=== PATIENT | male | born 1960 | race Caucasian/White ===

== ENCOUNTER 2020-10-08 14:47 | Outpatient (REF) | payer MEDICARE, OTHER, SELFPAY ==
--- NOTE | ~2020-10-08 | XR_ITS ---
EXAMINATION: XR LUMBOSACRAL SPINE WITH OBLIQUES CLINICAL INFORMATION: Low back pain and right-sided sciatica COMPARISON: None TECHNIQUE: AP, both oblique, and lateral views of the lumbar spine. Lateral view of the lumbosacral junction. FINDINGS: Bone alignment is normal. No fracture or dislocation is seen. Disc spaces are normal. There is evidence of mild degenerative spondylosis at L2-L3 and L3-L4. There is mild lower lumbar spine facet arthritis. No pars defect is seen. XR/XR lumbar spine 4V min IMPRESSION: Degenerative changes.
== END 2020-10-08 14:48 | disposition home or self-care (01) ==
LOC: HO.XRAY 14:47
PROVIDERS: PCP Internal Medicine; Visit Provider Internal Medicine
DX: M54.41 Lumbago with sciatica, right side (principal)
CPT/HCPCS: 72110

== ENCOUNTER → 2020-10-29 08:43 | Outpatient (BNVA) | payer MEDICARE, MEDICAID, SELFPAY | PROVIDERS: PCP Internal Medicine; Visit Provider Surgery | DX: R10.31 Right lower quadrant pain (principal) | CPT/HCPCS: 99212 ==

== ENCOUNTER 2020-11-02 14:19 | Outpatient (REF) | payer MEDICARE, MEDICAID, SELFPAY ==
[2020-11-02 15:46] LABS: Blood Urea Nitrogen 18 mg/dL (9-16); Estimated Glomerular Filt Rate 55
== END 2020-11-02 14:20 | disposition home or self-care (01) ==
LOC: HO.LAB 14:19
PROVIDERS: PCP Internal Medicine; Visit Provider Surgery
DX: R10.31 Right lower quadrant pain (principal)
CPT/HCPCS: 36415; 82565; 84520

== ENCOUNTER 2020-11-08 10:40 | Outpatient (REF) | payer MEDICARE, OTHER, SELFPAY ==
--- NOTE | ~2020-11-08 | CT_ITS ---
EXAMINATION: CT PELVIS WITH CONTRAST CLINICAL INFORMATION: Right lower quadrant pain. COMPARISON: None TECHNIQUE: Helical scanning was performed with submillimeter collimation through the pelvis with the use of oral contrast and during bolus intravenous injection of 85 mL of Omnipaque 350 intravenous contrast. Sagittal and coronal multiplanar 2-D reconstructions were obtained. This CT examination was performed using dose optimization techniques as appropriate, variously including the following: *Automated exposure control *Adjustment of mA and/or kV according to patient size (this includes techniques or standardized protocols for targeted exams where dose is matched to indication/reason for exam; i.e. extremities or head) *Use of iterative reconstruction technique DLP: 611 mGy-cm FINDINGS: PELVIS: There is scattered stool in the cecum and proximal ascending colon. The small bowel loops are normal caliber. Appendix is normal caliber. There is no free fluid or free air seen. The bladder is unremarkable. The prostate gland is mildly enlarged. No abnormal lymph nodes. There is a prominent soft tissue density in the right inguinal region but no fat stranding. It measures 2.1 x 1.4 x 3.4 cm. There is loss of L3-L4, L4-L5 disc heights. The rest of the disc heights are normal. No lytic or sclerotic process seen. Mild loss of bilateral hip joints are noted with periarticular spurring. CT/CT pelvis w con IMPRESSION: Soft tissue density in the right inguinal canal. No evidence of hernia. Otherwise the pelvis is unremarkable.
== END 2020-11-08 10:41 | disposition home or self-care (01) ==
LOC: HO.CT 10:40
PROVIDERS: PCP Internal Medicine; Visit Provider Surgery
DX: R10.31 Right lower quadrant pain (principal)
CPT/HCPCS: 72193; Q9967

== ENCOUNTER 2020-11-23 15:00 | Outpatient (RCR) | payer MEDICARE, OTHER, SELFPAY | END 2020-11-29 10:46 | disposition other institution (70) | LOC: HO.PT 15:00 | PROVIDERS: PCP Internal Medicine; Visit Provider Internal Medicine | DX: M54.42 Lumbago with sciatica, left side (principal) | CPT/HCPCS: 97110; 97112; 97140; 97162 ==

== ENCOUNTER 2020-12-07 09:42 | Outpatient (REF) | payer MEDICARE, OTHER, SELFPAY ==
--- NOTE | ~2020-12-07 | MR_ITS ---
EXAMINATION: MR LUMBAR SPINE WITHOUT CONTRAST CLINICAL INFORMATION: Lower back pain. Lifting injury 1.5 months ago. Right leg pain. COMPARISON: Lumbar spine radiographs dated 10/08/2020. Pelvic CT dated 11/08/2020. TECHNIQUE: MRI of the lumbar spine was obtained using routine sequences without contrast. FINDINGS: VERTEBRAL BODIES AND PARASPINAL STRUCTURES: The lumbar lordosis is maintained. Grade 1 anterolisthesis of L4 on L5 measuring approximately 0.5 cm, similar when compared to the prior radiographs. No acute fracture. No loss of vertebral body height. Loss of intervertebral disc height with disc desiccation at L3-S1. No acute abnormal marrow signal. The visualized paraspinal soft tissues are unremarkable. CONUS MEDULLARIS AND CAUDA EQUINA: Normal, terminating at the level of the L1 inferior endplate. SPINAL LEVELS: T12-L1: No significant disc bulge. No central canal or neural foraminal stenosis. L1-L2: Minimal disc bulge and bilateral facet arthropathy without significant central canal or neural foraminal stenosis. L2-L3: Minimal disc bulge and bilateral facet arthropathy without significant central canal or neural foraminal stenosis. L3-L4: Broad-based disc bulge with a superimposed right paracentral/subarticular disc protrusion which abuts the traversing right L4 nerve root within the lateral recess as well as the exiting right L3 nerve root in the extraforaminal space. Bilateral facet arthropathy and thickening of the ligamentum flavum causes mild central canal as well as moderate right and mild left neural foraminal stenosis. L4-L5: Uncovering of the intervertebral disc with a broad-based disc bulge and left paracentral disc protrusion. Bilateral facet arthropathy and thickening of the ligamentum flavum, asymmetric to the right. Findings cause moderate central canal stenosis which displaces the traversing right L5 nerve root as well as encroaches upon the traversing left L5 nerve root. There is moderate to severe bilateral neural foraminal stenosis. L5-S1: Broad-based disc bulge with a shallow posterior central disc protrusion, bilateral facet arthropathy, and thickening of the ligamentum flavum causing minimal central canal as well as moderate bilateral neural foraminal stenosis. MR/MR lumbar spine wo con IMPRESSION: 1. Grade 1 anterolisthesis of L4 on L5, unchanged when compared to the prior radiographs. Uncovering of the intervertebral disc with a broad-based disc bulge and left paracentral disc protrusion. Bilateral facet arthropathy and thickening of the ligamentum flavum which is asymmetric to the right. This causes moderate central canal stenosis which displaces the traversing right L5 nerve root and encroaches upon the traversing left L5 nerve root. Moderate to severe bilateral neural foraminal stenosis. 2. Degenerative disc disease at L3-L4 with a broad-based disc bulge and superimposed right paracentral/subarticular disc protrusion which abuts the traversing right L4 nerve root as well as the exiting right L3 nerve root. Bilateral facet arthropathy and thickening of the ligamentum flavum causes mild central canal as well as moderate right and mild left neural foraminal stenosis. 3. Degenerative disc disease at L5-S1 with a broad-based disc bulge and shallow posterior central disc protrusion as well as bilateral facet arthropathy and thickening of ligamentum flavum which causes minimal central canal and moderate bilateral neural foraminal stenosis.
== END 2020-12-07 09:43 | disposition home or self-care (01) ==
LOC: HO.MRI 09:42
PROVIDERS: Visit Provider Internal Medicine
DX: M54.42 Lumbago with sciatica, left side (principal); R10.31 Right lower quadrant pain
CPT/HCPCS: 72148; 99212

== ENCOUNTER → 2021-03-01 08:24 | Outpatient (BNVA) | payer MEDICARE, MEDICAID, SELFPAY | PROVIDERS: PCP Internal Medicine; Visit Provider Nurse Practitioner Family | DX: M47.27 Other spondylosis with radiculopathy, lumbosacral region (principal); M47.816 Spondylosis without myelopathy or radiculopathy, lumbar region | CPT/HCPCS: 99202 ==

== ENCOUNTER 2021-06-21 05:42 | Outpatient (REF) | payer MEDICARE, OTHER, SELFPAY ==
--- NOTE | ~2021-06-21 | FL_ITS ---
EXAMINATION: XR FLUOROSCOPY WITH IMAGES CLINICAL INFORMATION: M47.27 - Other spondylosis with radiculopathy, lumbosacral COMPARISON: MR lumbar spine 12/07/2020 TECHNIQUE: Fluoroscopy performed by Dr. Ryan Randle. Fluoroscopy time: 0.4 minutes DAP: 4.44 Gycm2 Images: 2 FINDINGS: There are spinal needles overlying the bilateral outer L4 neural foramen. There is contrast seen in the respective nerve sheaths. Some early transforaminal epidural extension is suggested. No visible vascular communication. FL/FL guidance in treatment room IMPRESSION: Fluoroscopy for pain management procedures.
== END 2021-06-21 05:43 | disposition home or self-care (01) ==
LOC: HO.RADIR 05:42
PROVIDERS: Visit Provider Anesthesiology
DX: M47.27 Other spondylosis with radiculopathy, lumbosacral region (principal); M47.816 Spondylosis without myelopathy or radiculopathy, lumbar region
CPT/HCPCS: 64483; J3300; Q9967

== ENCOUNTER → 2021-07-21 08:31 | Outpatient (BNVA) | payer MEDICARE, MEDICAID, SELFPAY | PROVIDERS: PCP Internal Medicine; Visit Provider Anesthesiology | DX: M47.27 Other spondylosis with radiculopathy, lumbosacral region (principal); M47.816 Spondylosis without myelopathy or radiculopathy, lumbar region | CPT/HCPCS: 99212 ==

== ENCOUNTER 2021-11-18 06:58 | Day surgery (SDC) | payer MEDICARE, OTHER, SELFPAY ==
[2021-11-14 12:30] VITALS: BMI 29.0
[2021-11-16 10:01] VITALS: BMI 28.1
--- NOTE | 2021-11-16 14:31 | P.CONAN_ITS ---
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 [facility] Active Problems Active Problems: All Active Problems (Updated 11/16/21 @ 09:57 by Meagan Mullen RN) Right groin pain (Acute) Spondylosis of lumbosacral spine with radiculopathy (Acute) Lumbar facet arthropathy (Acute) Multilevel degenerative disc disease (Acute) Lumbar stenosis (Acute) Diabetes (Acute) Past Medical History Medical History (Updated 11/16/21 @ 09:57 by Meagan Mullen RN) Deaf Diabetes Elevated cholesterol HTN (hypertension) Hx of renal calculi Personal history of COVID-19 Seasonal allergies Family History Family History Mother History of lung cancer Surgical History Surgical History (Updated 11/16/21 @ 09:57 by Meagan Mullen RN) History of bilateral inguinal hernia repair History of lithotripsy History of right inguinal hernia repair (~12/29/19) Hx of cholecystectomy Social History Social History Are you a primary critical care technician to a significant other at home: No Do you presently have visiting nurse or other home services: No Alcohol intake: current Alcohol intake frequency: holidays/special occasions only Patient Tobacco Use Status: Never used Tobacco Use of substances other than those prescribed or required for medical reasons: No Are you DNR?: No Advance Directives: No Advance Directives Information Provided: Yes Poor oral hygiene: No (upper denture) Meds Allergies Allergy/AdvReac Type Severity Reaction Status Date / Time bee pollen [BEE STINGS] Allergy Severe SWELLING Verified 11/18/21 07:47 Sulfa (Sulfonamide Allergy Intermediate UNKNOWN Verified 11/18/21 07:47 Antibiotics) [SULFA (SULFONAMIDE ANTIBIOTICS)] pollen extracts [POLLEN] Allergy Unknown NASAL Verified 11/18/21 07:47 IRRITATION Home Medications Medication Instructions Recorded Confirmed Last Taken Type blood sugar diagnostic #10 ea 10/29/20 10/29/20 Unknown History cholecalciferol (vitamin D3) 25 25 mcg PO DAILY 10/29/20 11/16/21 Unknown History mcg (1,000 unit) capsule coenzyme Q10 100 mg capsule 100 mg PO DAILY 10/29/20 11/16/21 Unknown History (CoQ-10) glipizide 5 mg tablet 5 mg PO DAILY 10/29/20 11/16/21 Unknown History insulin glargine 100 unit/mL 60 unit SUBCUT BEDTIME 10/29/20 11/18/21 11/17/21 22:00 History subcutaneous solution 30 units insulin lispro 100 unit/mL 10 - 15 unit SUBCUT TID PRN 10/29/20 11/16/21 Unknown History subcutaneous pen insulin syringe-needle U-100 1 mL #10 ea 10/29/20 10/29/20 Unknown History 31 gauge x 01/02 lisinopril 10 mg tablet 10 mg PO DAILY 10/29/20 11/16/21 Unknown History loratadine 10 mg tablet 10 mg PO QAM 10/29/20 11/16/21 Unknown History mecobalamin (vitamin B12) 1,000 1,000 mcg SUBLINGUAL DAILY 10/29/20 11/16/21 Unknown History mcg disintegrating tablet,sublingual pen needle, diabetic 31 gauge x #50 ea 10/29/20 10/29/20 Unknown History 3/16 sitagliptin 100 mg tablet 100 mg PO DAILY 10/29/20 11/16/21 Unknown History gabapentin 300 mg capsule 300 mg PO TID 12/07/20 11/16/21 Unknown History tizanidine 4 mg tablet 4 mg PO Q6-8H PRN tab 12/07/20 11/16/21 Unknown History Exam Exam Date and Time: November 16, 2021 1431 Height,Weight and Vital Signs: Height 5 ft 8 in Weight 83.915 kg Assessment and Plan Assessment Anesthesia Assessment: Chart Reviewed Documented by User: Makayla Huynh MD 11/18/21 09:43 [facility] Past Medical History Medical History (Updated 11/16/21 @ 09:57 by Meagan Mullen RN) Deaf Diabetes Elevated cholesterol HTN (hypertension) Hx of renal calculi Personal history of COVID-19 Seasonal allergies Family History Family History Mother History of lung cancer Family history of problems with anesthesia: No Surgical History Surgical History (Updated 11/16/21 @ 09:57 by Meagan Mullen RN) History of bilateral inguinal hernia repair History of lithotripsy History of right inguinal hernia repair (~12/29/19) Hx of cholecystectomy History of Problems with Anesthesia: No Social History Social History Are you a primary critical care technician to a significant other at home: No Do you presently have visiting nurse or other home services: No Alcohol intake: current Alcohol intake frequency: holidays/special occasions only Patient Tobacco Use Status: Never used Tobacco Use of substances other than those prescribed or required for medical reasons: No Are you DNR?: No Advance Directives: No Advance Directives Information Provided: Yes Poor oral hygiene: No (upper denture) Meds Allergies Allergy/AdvReac Type Severity Reaction Status Date / Time bee pollen [BEE STINGS] Allergy Severe SWELLING Verified 11/18/21 07:47 Sulfa (Sulfonamide Allergy Intermediate UNKNOWN Verified 11/18/21 07:47 Antibiotics) [SULFA (SULFONAMIDE ANTIBIOTICS)] pollen extracts [POLLEN] Allergy Unknown NASAL Verified 11/18/21 07:47 IRRITATION Home Medications Medication Instructions Recorded Confirmed Last Taken Type blood sugar diagnostic #10 ea 10/29/20 10/29/20 Unknown History cholecalciferol (vitamin D3) 25 25 mcg PO DAILY 10/29/20 11/16/21 Unknown History mcg (1,000 unit) capsule coenzyme Q10 100 mg capsule 100 mg PO DAILY 10/29/20 11/16/21 Unknown History (CoQ-10) glipizide 5 mg tablet 5 mg PO DAILY 10/29/20 11/16/21 Unknown History insulin glargine 100 unit/mL 60 unit SUBCUT BEDTIME 10/29/20 11/18/21 11/17/21 22:00 History subcutaneous solution 30 units insulin lispro 100 unit/mL 10 - 15 unit SUBCUT TID PRN 10/29/20 11/16/21 Unknown History subcutaneous pen insulin syringe-needle U-100 1 mL #10 ea 10/29/20 10/29/20 Unknown History 31 gauge x /16 lisinopril 10 mg tablet 10 mg PO DAILY 10/29/20 11/16/21 Unknown History loratadine 10 mg tablet 10 mg PO QAM 10/29/20 11/16/21 Unknown History mecobalamin (vitamin B12) 1,000 1,000 mcg SUBLINGUAL DAILY 10/29/20 11/16/21 Unknown History mcg disintegrating tablet,sublingual pen needle, diabetic 31 gauge x #50 ea 10/29/20 10/29/20 Unknown History 3/16 sitagliptin 100 mg tablet 100 mg PO DAILY 10/29/20 11/16/21 Unknown History gabapentin 300 mg capsule 300 mg PO TID 12/07/20 11/16/21 Unknown History tizanidine 4 mg tablet 4 mg PO Q6-8H PRN tab 12/07/20 11/16/21 Unknown History Exam Airway Mallampati Class: II TM Dist: >3cm Neck ROM: Full Loose/Missing/Broken Teeth: Upper and Lower Assessment and Plan Assessment Anesthesia Assessment: Anesthesia Plan Discussed Final Anesthetic Review Family History of Problems with Anesthesia: No History of Problems with Anesthesia: No NPO: Yes ASA Class: II Final Preanesthetic Review: No Changes in Pt Med Stat, Meds/Allgs Chart Reviewed, Consent Obtained/Reviewed and Anes Risks/Benef Reviewed Patient Risk: Intermediate Procedure Risk: Low Anesthetic Plan Anesthetic Plan: MAC: Disposition: Standard PACU
--- NOTE | ~2021-11-18 | FL_ITS ---
EXAMINATION: XR FLUOROSCOPY WITH IMAGES CLINICAL INFORMATION: Spinal cord stimulation trial COMPARISON: None. TECHNIQUE: Fluoroscopy performed by Dr. Ryan Randle. Fluoroscopy time: 13.1 minutes DAP: 61.2 Gycm2 Images: 3 FINDINGS: Fluoroscopic images demonstrate spinal stimulator wiring overlying the thoracic spine. This extends likely to the level of T8. FL/FL guidance in OR IMPRESSION: Fluoroscopic guidance for spinal stimulator wiring placement. Please refer to procedural report for further information.
--- NOTE | 2021-11-18 07:10 | P.HPSUR_ITS ---
Pre-Procedural Eval Section A Date of Service: 11/18/21 Section B Chief Complaint: spondylosis Details of Present Illness: as above Relevant Family History (Specify if Yes): No Relevant Social History: None Present Medications: see Short Stay Collaborative assessment Medical History: No relevant PMH History of Previous Operations: No relevant previous surgery Allergies: Allergies Allergy/AdvReac Type Severity Reaction Status Date / Time bee pollen [BEE STINGS] Allergy Severe SWELLING Verified 11/16/21 09:57 Sulfa (Sulfonamide Allergy Intermediate UNKNOWN Verified 11/16/21 09:57 Antibiotics) [SULFA (SULFONAMIDE ANTIBIOTICS)] pollen extracts [POLLEN] Allergy Unknown NASAL Verified 07/21/21 08:49 IRRITATION Review of Systems Sugical H&P ROS: Negative: Constitution, Cardiovascular, Respiratory, Neurolo gical, Psychiatric, Hem-Onc, Allergic/Immunologic, Gastrointestinal, Genitourinary, Musculoskeletal, Integumentary, Endocrine and Eyes/Ears/Nose/Throat Exam Surgical H&P Exam: Normal: HEENT, Normal: Heart, Normal: Lungs, Normal: Extremities, Normal: Abdomen, Normal: Skin and Normal: Neurological Plan Diagnosis/Plan: Unchanged I have reviewed the history and physical and performed a pertinent physical examination on my patient. No changes have occurred unless specified.
[2021-11-18 07:51] VITALS: BP 145/83; PULSE 71; RESP 16; TEMP 36.5; O2SAT 97
[2021-11-18 08:05] LABS: Glucose, Whole Blood 222 mg/dL (60-115)
[2021-11-18] MEDS: Lactated Ringers 1,000 ML 100 ML IVCONT (08:08)
[2021-11-18 11:28] VITALS: BP 165/95; PULSE 68; RESP 20; TEMP 36.2; O2SAT 97
--- NOTE | 2021-11-18 11:35 | P.BOP_ITS ---
Brief Operative Note Date of Service: 11/18/21 Pre-op diagnosis: spondylosis lumbar spine, chronic pain syndrome Post-op diagnosis: same Procedure: Trial of Nevro SCS Implants: none permanent Surgeon: Ryan Randle MD Anesthesia: MAC Was an Human Services Case Manager used for this Procedure?: No Estimated blood loss (mL): 2 Pathology: none sent Condition: stable Disposition: PACU
--- NOTE | 2021-11-18 11:38 | W.PM.OPN ---
Operative Note Operative Note Date of Service: 11/18/21 Narrative: Nick is a very pleasant 61 years old male who came today into the operating room for trial of spinal cord stimulator Nevro for the treatment of post laminectomy syndrome. Preoperatively patient received cefasolin 2 g IV mg 30 minutes before the procedure. After obtaining informed consent the patient was brought to the operating room, she was positioned prone on operating table, [employer] monitors were applied and patient was deeply sedated.? ?Time-out was performed delineating correct site, side, the nature of the procedure, patient's allergy, preoperative antibiotic if needed.? All operating room staff was participating in OR time-out procedure. Patient's entire back was prepped with Chloraprep twice and draped with full body fenestrated drape.? Sterilely draped C-arm was brought over operating field and square picture of T11,T12, L1 L2 vertebrae as were demonstrated on the screen.? Attention FIRST? was concentrated on the right L1 L2 epidural interspace.? The location of the projection of the right pedicle center of the L3 vertebra was found on the skin using C-arm.? This location was injected with mixture of lidocaine 2% and Marcaine 0.5% 5 cc.? After that 11 blade was used to make a vineet on the skin.? 10 cm 14 gauge? introducer epidural needle was inserted through the vineet and advanced to? L1-L2 epidural interspace.? The? advancement of the needle was performed on anterior posterior and lateral views.? Guitar wire and loss of resistance technique were used to locate epidural space.? When guitar wire was spread in the epidural fashion, epidural lead was inserted through the skin and the attempt was made to advance the lead. Undortunately the lead was deviating to the left or to the right and bumping adainst midline epidural adhesions on the epidural space at the location of T12 - L1 and T11- T12 vertebrae. ?The needle was removed with the epidural lead and the procedure was attempted on the left without success again with the needle entereing the epidural space at L1- L2 without difficulty but the epidural lead resulting to deviate anteriorly. The needle was removed . After that location of the projection of the right pedicle center of the T12 vertebra was found on the skin using C-arm.? This location was injected with mixture of lidocaine 2% and Marcaine 0.5% 5 cc.? After that 11 blade was used to make a vineet on the skin.? 10 cm 14 gauge curved introducer epidural needle was inserted through the vineet and advanced to T10 T11 epidural interspace.? The advancement of the needle was performed on anterior posterior and lateral views.? Guitar wire and loss of resistance technique were used to locate epidural space.? When guitar wire was spread in the epidural fashion, epidural lead was inserted through the needle and advanced to the bottom of T7 epidural interspace slightly left to the midline location of the projection of the left pedicle center of the T12 vertebra was found on the skin using C-arm.? This location was injected with mixture of lidocaine 2% and Marcaine 0.5% 5 cc.? After that 11 blade was used to make a vineet on the skin.? 10 cm 14 gauge curved introducer epidural needle was inserted through the vineet and advanced to T10 - T11 epidural interspace now on the left side.? The advancement of the needle was performed on anterior posterior and lateral views.? Guitar wire and loss of resistance technique were used to locate epidural space.? When guitar wire was spread in the epidural fashion, epidural lead was inserted through the needle and advanced to the bottom of T7 epidural interspace slightly right to the existing electrode. After the satisfactory position of the needles was established introducer needles and stilets were withdrawn from the electrodes arrays and care was taken not to dislodge the leads. The anchoring devices were advanced to the level of the skin over the bodies of the leads and sutured to the skin using 2 silk sutures 0-0. after that the anchoring screws were tight until three clicks were heard. Bacitracin ointments were applied to the levels of the needles entrance and sterile dressing was applied. Impedance was checked and was satisfactory .? The patient was awake at this moment and epidural leads were connected to testing device.?The testing device was also taped to the patient's back.? The patient tolerated procedure well she was transferred to the [facility] and went to PACU for recovery.
[2021-11-18 11:43] VITALS: BP 145/81; PULSE 69; RESP 18; TEMP 36.1; O2SAT 98
== END 2021-11-18 12:15 | disposition home or self-care (01) ==
PROVIDERS: PCP Internal Medicine; Visit Provider Anesthesiology
PROC: (CPT 63650; principal; 2021-11-18 09:10)
DX: M96.1 Postlaminectomy syndrome, not elsewhere classified (principal); M47.27 Other spondylosis with radiculopathy, lumbosacral region; E11.9 Type 2 diabetes mellitus without complications; Z88.2 Allergy status to sulfonamides
CPT/HCPCS: 63650 ×2; 82947; C1713; C1778; J0690; J2250

== ENCOUNTER → 2021-11-24 08:48 | Outpatient (BNVA) | payer MEDICARE, OTHER, SELFPAY | PROVIDERS: PCP Internal Medicine; Visit Provider Anesthesiology | DX: M54.50 Low back pain, unspecified (principal); E11.9 Type 2 diabetes mellitus without complications; I10 Essential (primary) hypertension; E78.00 Pure hypercholesterolemia, unspecified; H91.3 Deaf nonspeaking, not elsewhere classified; J30.1 Allergic rhinitis due to pollen; Z90.49 Acquired absence of other specified parts of digestive tract; Z88.2 Allergy status to sulfonamides; Z91.030 Bee allergy status | CPT/HCPCS: 99212 ==

== ENCOUNTER 2022-03-17 10:11 | Day surgery (SDC) | payer MEDICARE, OTHER, SELFPAY ==
[2022-03-13 09:55] VITALS: BMI 31.0
--- NOTE | 2022-03-16 10:47 | HO.ANESPROP2 ---
Documented by User: Lissa Regan NP 03/16/22 10:48 HPI - Anesthesia Eval Consult details Narrative: 61yo M for Lumbar Spinal Cord Stimulation Implant s/p trial 11/2021 with MAC Deaf requiring machine greaser [facility] Active Problems Active Problems: All Active Problems (Updated 03/13/22 @ 09:54 by Jami Hernandez RN) Right groin pain (Acute) Spondylosis of lumbosacral spine with radiculopathy (Acute) Lumbar facet arthropathy (Acute) Multilevel degenerative disc disease (Acute) Lumbar stenosis (Acute) Chronic pain syndrome (Acute) Diabetes (Acute) Past Medical History Medical History (Updated 03/13/22 @ 09:54 by Jami Hernandez RN) Chronic pain syndrome Deaf Diabetes Elevated cholesterol HTN (hypertension) Hx of renal calculi Personal history of COVID-19 S/P placement of nerve stimulator Seasonal allergies Family History Family History Mother History of lung cancer Family history of problems with anesthesia: No Surgical History Surgical History (Updated 11/16/21 @ 09:57 by Meagan Mullen RN) History of bilateral inguinal hernia repair History of lithotripsy History of right inguinal hernia repair (~12/29/19) Hx of cholecystectomy History of Problems with Anesthesia: No Social History Social History Are you a primary career development engineer to a significant other at home: No Do you presently have visiting nurse or other home services: No Alcohol intake: current Alcohol intake frequency: holidays/special occasions only Patient Tobacco Use Status: Never used Tobacco Use of substances other than those prescribed or required for medical reasons: No Are you DNR?: No Advance Directives: No Advance Directives Information Provided: Yes Meds Allergies Allergy/AdvReac Type Severity Reaction Status Date / Time bee pollen [BEE STINGS] Allergy Severe SWELLING Verified 11/24/21 09:08 pollen extracts [POLLEN] Allergy Intermediate NASAL Verified 03/13/22 09:51 IRRITATION Sulfa (Sulfonamide Allergy Intermediate UNKNOWN Verified 11/24/21 09:08 Antibiotics) [SULFA (SULFONAMIDE ANTIBIOTICS)] adhesive AdvReac Rash Verified 03/17/22 11:14 Home Medications Medication Instructions Recorded Confirmed Last Taken Type blood sugar diagnostic #10 ea 10/29/20 10/29/20 Unknown History cholecalciferol (vitamin D3) 25 25 mcg PO DAILY 10/29/20 11/16/21 Unknown History mcg (1,000 unit) capsule coenzyme Q10 100 mg capsule 100 mg PO DAILY 10/29/20 11/16/21 Unknown History (CoQ-10) glipizide 5 mg tablet 5 mg PO DAILY 10/29/20 11/16/21 Unknown History insulin glargine 100 unit/mL 60 unit subcut BEDTIME 10/29/20 11/18/21 11/17/21 22:00 History subcutaneous solution 30 units insulin lispro 100 unit/mL 10 - 15 unit subcut TID PRN 10/29/20 11/16/21 Unknown History subcutaneous pen Hyperglycemia insulin syringe-needle U-100 1 mL #10 ea 10/29/20 10/29/20 Unknown History 31 gauge x 5/16 lisinopril 10 mg tablet 10 mg PO DAILY 10/29/20 11/16/21 Unknown History loratadine 10 mg tablet 10 mg PO QAM 10/29/20 11/16/21 Unknown History mecobalamin (vitamin B12) 1,000 1,000 mcg sublingual DAILY 10/29/20 11/16/21 Unknown History mcg disintegrating tablet,sublingual pen needle, diabetic 31 gauge x #50 ea 10/29/20 10/29/20 Unknown History 3/16 sitagliptin 100 mg tablet 100 mg PO DAILY 10/29/20 11/16/21 Unknown History Exam Exam Date and Time: March 16, 2022 1047 Height,Weight and Vital Signs: Height 5 ft 8 in Weight 92.59 kg Assessment and Plan Assessment Anesthesia Assessment: Chart Reviewed Final Anesthetic Review Family History of Problems with Anesthesia: No History of Problems with Anesthesia: No Documented by User: Harish Everett MD 03/17/22 12:11 PMFSH Past Medical History Medical History (Updated 03/13/22 @ 09:54 by Jami Hernandez RN) Chronic pain syndrome Deaf Diabetes Elevated cholesterol HTN (hypertension) Hx of renal calculi Personal history of COVID-19 S/P placement of nerve stimulator Seasonal allergies Family History Family History Mother History of lung cancer Surgical History Surgical History (Updated 11/16/21 @ 09:57 by Meagan Mullen RN) History of bilateral inguinal hernia repair History of lithotripsy History of right inguinal hernia repair (~12/29/19) Hx of cholecystectomy Social History Social History Are you a primary career development engineer to a significant other at home: No Do you presently have visiting nurse or other home services: No Alcohol intake: current Alcohol intake frequency: holidays/special occasions only Patient Tobacco Use Status: Never used Tobacco Use of substances other than those prescribed or required for medical reasons: No Are you DNR?: No Advance Directives: No Advance Directives Information Provided: Yes Meds Allergies Allergy/AdvReac Type Severity Reaction Status Date / Time bee pollen [BEE STINGS] Allergy Severe SWELLING Verified 11/24/21 09:08 pollen extracts [POLLEN] Allergy Intermediate NASAL Verified 03/13/22 09:51 IRRITATION Sulfa (Sulfonamide Allergy Intermediate UNKNOWN Verified 11/24/21 09:08 Antibiotics) [SULFA (SULFONAMIDE ANTIBIOTICS)] adhesive AdvReac Rash Verified 03/17/22 11:14 Home Medications Medication Instructions Recorded Confirmed Last Taken Type blood sugar diagnostic #10 ea 10/29/20 10/29/20 Unknown History cholecalciferol (vitamin D3) 25 25 mcg PO DAILY 10/29/20 11/16/21 Unknown History mcg (1,000 unit) capsule coenzyme Q10 100 mg capsule 100 mg PO DAILY 10/29/20 11/16/21 Unknown History (CoQ-10) glipizide 5 mg tablet 5 mg PO DAILY 10/29/20 11/16/21 Unknown History insulin glargine 100 unit/mL 60 unit subcut BEDTIME 10/29/20 11/18/21 11/17/21 22:00 History subcutaneous solution 30 units insulin lispro 100 unit/mL 10 - 15 unit subcut TID PRN 10/29/20 11/16/21 Unknown History subcutaneous pen Hyperglycemia insulin syringe-needle U-100 1 mL #10 ea 10/29/20 10/29/20 Unknown History 31 gauge x /16 lisinopril 10 mg tablet 10 mg PO DAILY 10/29/20 11/16/21 Unknown History loratadine 10 mg tablet 10 mg PO QAM 10/29/20 11/16/21 Unknown History mecobalamin (vitamin B12) 1,000 1,000 mcg sublingual DAILY 10/29/20 11/16/21 Unknown History mcg disintegrating tablet,sublingual pen needle, diabetic 31 gauge x #50 ea 10/29/20 10/29/20 Unknown History 316 sitagliptin 100 mg tablet 100 mg PO DAILY 10/29/20 11/16/21 Unknown History Exam Airway Mallampati Class: II TM Dist: >3cm Neck ROM: Full Loose/Missing/Broken Teeth: Yes (all upper teeth missing, poor lower dentiton multiple missing including front lower tooth and lateral teeth on both sides) Heart: [id number] Lungs: cta b/l Assessment and Plan Assessment Anesthesia Assessment: Anesthesia Plan Discussed Final Anesthetic Review NPO: Yes ASA Class: III Final Preanesthetic Review: No Changes in Pt Med Stat, Meds/Allgs Chart Reviewed, Consent Obtained/Reviewed and Anes Risks/Benef Reviewed Patient Risk: Intermediate Procedure Risk: Intermediate Assessment/Block/Sedation in SS: Assess/Block/Sedation-SS Anesthetic Plan Anesthetic Plan: GA and Agree w/ Assess. and Plan Disposition: Standard PACU
[2022-03-17] VITALS (8 sets, daily range): BP systolic 127–162; BP diastolic 73–87; PULSE 64–71; RESP 16–18; TEMP 36.2–36.3; O2SAT 95–100
--- NOTE | ~2022-03-17 | FL_ITS ---
EXAMINATION: XR FLUOROSCOPY WITH IMAGES CLINICAL INFORMATION: Spinal stimulator implant. COMPARISON: MR lumbar spine 12/07/2020 TECHNIQUE: Fluoroscopy performed by Dr. Ryan Randle. Fluoroscopy time: 2.3 minutes. Cumulative Dose: 54.0 mGy. DAP: 14.7 Gy-cm2. Images: 5. FINDINGS: There are 2 spinal stimulator electrodes seen ascending the posterior spinal canal. The electrode tips are at level of mid thoracic spine, approximately upper T8 on left and T8-T9 on right. There is no visible kinking or defect of the leads. FL/FL guidance in OR IMPRESSION: Fluoroscopy for pain management procedure.
[2022-03-17 11:34] LABS: Glucose, Whole Blood 271 mg/dL (60-115)
[2022-03-17] MEDS: Lactated Ringers 1,000 ML 100 ML IVCONT (11:40)
--- NOTE | 2022-03-17 11:57 | PC.NURSE ---
patient concerned with elevated blood sugar, Dr Randle at bedside and states that risk of infection is increased with an elevated blood sugar/A1C. Patient verbalized understanding. Dr Randle asked patient if he wanted to cancel procedure and follow up with enterprise application architect to get sugar under control. Patient states he wants to proceed with procedure.
--- NOTE | 2022-03-17 12:00 | MHC.SHP ---
Pre-Procedural Eval Section A Date of Service: 03/17/22 The patient is an INPATIENT: No Changes since office visit: Yes Patient answered all questions The History & Physical has been completed within 30 days and I have reviewed it.: No Section B Chief Complaint: Other spondylosis with radiculopathy, lumbosacral Details of Present Illness: as above Relevant Family History (Specify if Yes): No Relevant Social History: None Present Medications: see Short Stay Collaborative assessment Medical History: No relevant PMH History of Previous Operations: No relevant previous surgery Allergies: Allergies Allergy/AdvReac Type Severity Reaction Status Date / Time bee pollen [BEE STINGS] Allergy Severe SWELLING Verified 11/24/21 09:08 pollen extracts [POLLEN] Allergy Intermediate NASAL Verified 03/13/22 09:51 IRRITATION Sulfa (Sulfonamide Allergy Intermediate UNKNOWN Verified 11/24/21 09:08 Antibiotics) [SULFA (SULFONAMIDE ANTIBIOTICS)] adhesive AdvReac Rash Verified 03/17/22 11:14 Review of Systems Sugical H&P ROS: Negative: Constitution, Cardiovascular, Respiratory, Neurological, Psychiatric, Hem-Onc, Allergic/Immunologic, Gastrointestinal, Genitourinary, Musculoskeletal, Integumentary, Endocrine and Eyes/Ears/Nose/Throat Exam Surgical H&P Exam: Normal: HEENT, Normal: Heart, Normal: Lungs, Normal: Extremities, Normal: Abdomen, Normal: Skin and Normal: Neurological Plan Diagnosis/Plan: Unchanged I have reviewed the history and physical and performed a pertinent physical examination on my patient. No changes have occurred unless specified.
--- NOTE | 2022-03-17 12:31 | W.PM.OPN ---
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 Preoperatively patient received? 2 g cephasolin approximately 20 minutes before procedure. After obtaining informed consent patient was brought to the operating room, HE was positioned prone on operating table, [place] [employer] monitors were applied and patient was deeply sedated.? ?Time-out was performed delineating correct site, side, the nature of the procedure, patient's allergy, preoperative antibiotic if needed.? All operating room staff was participating in OR time-out procedure. Patient's entire back was prepped with ChloraPrep twice and draped with full body fenestrated drape and ioban film.? Sterilely draped C-arm was brought over operating field and sqare picture of? T12-L1 and L2 vertebrae as were demonstrated on the screen.?The skin was infiltrated with the mixture of lidocain 2% and bupivacain 0.5% in the projection of T12 and L1 spinouse procesess.? Number 10 Blade scalpel was used to perform strict midline 6.5 cm? long incision. Thorough hemostasis was obtained,? After that attention? was concentrated on the L1-L2 epidural interspace.? The location of the projection of the right lower portion of the pedicle vertebra was found on the skin using C-arm.? This location was injected with mixture of lidocaine 2% and Marcaine 0.5% 5 cc.? ? 10 cm 14 gauge? introducer epidural needle was inserted through the prevertebral fascia and advanced to? T11-T12 epidural interspace.? The advancement of the needle was performed on anterior posterior and lateral views.? Guitar wire and loss of resistance technique were used to locate epidural space.? When guitar wire was spread in the epidural fashion, epidural lead was inserted through the skin and it was advanced to the posterior epidural space.The lead was advanced? strictly on midline? approximately to the? mid of T8 vertebra in the posterior epidural space. ? After that location of the projection of the LEFT lowest portion of the pedicle of the T12 vertebra was found using C-arm.? This location was injected with mixture of lidocaine 2% and Marcaine 0.5% 5 cc.?10 cm 14 gauge? introducer epidural needle was inserted through the fascia and advanced to T T11-T12 epidural interspace.? The advancement of the needle was performed on anterior posterior and lateral views.? Guitar wire and loss of resistance technique were used to locate epidural space.? When guitar wire was spread in the epidural fashion, epidural lead was inserted through the needle and it was advanced to were the T9 posterior epidural space. the position of the electrodes was verified and on the lateral view they were posterior epidural space. After that attention was concentrated on the left loin? of the patient? were the decision was made to implant the battery.? 2 cm below the 12 right rib horizontal incision was made 6.5 cm long using 10 blade scalpel, hemostasis was performed using? electric cautery..? Using sharp and dull dissection pocket for the battery was formed in caudad direction from the incision.? After that the? wound pocket was? irrigated with vancomycin containing normal saline and tunneling device was used to connect midline incision and flank incision.? The epidural leads were dislodged from midline incision to the flank incision through the tunneling device.? After that they were connected to the omnia battery? and impedance was checked? and found to be satisfactory with all leads connected.? Anchoring? screws were fix on the back of the battery.? Tycron of 1- 0 sutures were applied to the superior lateral and superior medial corners of the upper portion of the pocket? wound and after that the anchoring sutures were connected to the orifices on the battery.? Electrodes were gathered behind the body of the battery and battery was dislodged into under subcutaneous pocket.? The sutures were tied and? irrigation was repeated.? After that?0-0 Polysorb sutures were used to close the? both wounds and the 0-2 polisorb sutures were used to apptoximate the level of the skin , Beatrice were applied to the skin and bacitracin ointment was applied to the staple lines. The sterile dressing comprised of several 4x4 for each wound was affixed to the skin using Tegaderm? film. The patient was transfered supine on the stretcher,? awaken, extubated and transferred stable to the PACU.
--- NOTE | 2022-03-17 14:36 | P.BOP_ITS ---
Brief Operative Note Date of Service: 03/17/22 Pre-op diagnosis: chronic pain syndrome Procedure: chronic pain syndrome Implants: Nevro SCS Omnia battery and 3 epidural 8 contact stimulating leads Surgeon: Ryan Randle MD Anesthesia: GETA Was an [employer] Attendant used for this Procedure?: No Estimated blood loss (mL): 15 Pathology: none sent Condition: stable Disposition: PACU
[2022-03-17] MEDS: oxyCODONE HCl Immed Release 5 MG TABLET 10 MG PO (15:10)
== END 2022-03-17 16:03 ==
LOC: HO.SSS 10:11
PROVIDERS: PCP Internal Medicine; Visit Provider Anesthesiology
PROC: (CPT 63685; principal; 2022-03-17 12:10)
DX: M47.27 Other spondylosis with radiculopathy, lumbosacral region (principal); M47.816 Spondylosis without myelopathy or radiculopathy, lumbar region; G89.4 Chronic pain syndrome; H91.3 Deaf nonspeaking, not elsewhere classified; I10 Essential (primary) hypertension; J30.2 Other seasonal allergic rhinitis; E78.00 Pure hypercholesterolemia, unspecified; Z79.4 Long term (current) use of insulin; E11.42 Type 2 diabetes mellitus with diabetic polyneuropathy; Z79.899 Other long term (current) drug therapy; Z86.16 Personal history of COVID-19
CPT/HCPCS: 63685; 63650 ×2; 82947; C1713; C1778; C1787; C1816; J0330; J0690; J1100; J2250; J2405; J2795; J3010; J3370

== ENCOUNTER → 2022-03-23 10:24 | Outpatient (BNVA) | payer MEDICARE, OTHER, SELFPAY | PROVIDERS: PCP Internal Medicine; Visit Provider Anesthesiology | DX: M47.27 Other spondylosis with radiculopathy, lumbosacral region (principal); M47.816 Spondylosis without myelopathy or radiculopathy, lumbar region; G89.4 Chronic pain syndrome | CPT/HCPCS: 99212 ==

== ENCOUNTER → 2022-03-30 09:04 | Outpatient (BNVA) | payer MEDICARE, OTHER, SELFPAY | PROVIDERS: PCP Internal Medicine; Visit Provider Nurse Practitioner Family | DX: M47.27 Other spondylosis with radiculopathy, lumbosacral region (principal); M47.816 Spondylosis without myelopathy or radiculopathy, lumbar region; G89.4 Chronic pain syndrome | CPT/HCPCS: 99212 ==

== ENCOUNTER → 2022-04-10 10:50 | Outpatient (BNVA) | payer MEDICARE, OTHER, SELFPAY | PROVIDERS: PCP Internal Medicine; Visit Provider Nurse Practitioner Family | DX: M47.27 Other spondylosis with radiculopathy, lumbosacral region (principal); M47.816 Spondylosis without myelopathy or radiculopathy, lumbar region; G89.4 Chronic pain syndrome; Z09 Encounter for follow-up examination after completed treatment for conditions other than malignant neoplasm | CPT/HCPCS: 99212 ==

== ENCOUNTER 2022-05-11 09:39 | Outpatient (REF) | payer MEDICARE, OTHER, SELFPAY ==
--- NOTE | ~2022-05-11 | XR_ITS ---
EXAMINATION: XR THORACIC SPINE CLINICAL INFORMATION: Functional implant. COMPARISON: None TECHNIQUE: 3 views of the thoracic spine were obtained. FINDINGS: Electronic device with dorsal epidural catheter leads terminating at the level of the T8 superior endplate. No lead disruption. Normal vertebral body alignment. The thoracic kyphosis is maintained. No loss of vertebral body height. Minimal multilevel loss of intervertebral disc height with tiny anterior endplate osteophytes. The visualized lungs are clear. Right upper quadrant surgical clips. XR/XR thoracic spine 3V IMPRESSION: Dorsal epidural leads terminating at the level of the T8 superior endplate. No lead disruption. Minimal multilevel degenerative disc disease.
== END 2022-05-11 09:40 | disposition home or self-care (01) ==
LOC: HO.XRAY 09:39
PROVIDERS: PCP Internal Medicine; Visit Provider Anesthesiology
DX: M47.27 Other spondylosis with radiculopathy, lumbosacral region (principal); M47.816 Spondylosis without myelopathy or radiculopathy, lumbar region; G89.4 Chronic pain syndrome; Z96.89 Presence of other specified functional implants
CPT/HCPCS: 72072; Q3014

== ENCOUNTER → 2022-05-22 09:08 | Outpatient (BNVA) | payer MEDICARE, SELFPAY | PROVIDERS: PCP Internal Medicine; Visit Provider Anesthesiology | DX: M47.27 Other spondylosis with radiculopathy, lumbosacral region (principal); M47.816 Spondylosis without myelopathy or radiculopathy, lumbar region; G89.4 Chronic pain syndrome | CPT/HCPCS: Q3014 ==

== ENCOUNTER → 2022-05-31 12:45 | Outpatient (BNVA) | payer MEDICARE, SELFPAY | PROVIDERS: PCP Internal Medicine; Visit Provider Anesthesiology | DX: M47.27 Other spondylosis with radiculopathy, lumbosacral region (principal); M47.816 Spondylosis without myelopathy or radiculopathy, lumbar region; G89.4 Chronic pain syndrome | CPT/HCPCS: 99212 ==

== ENCOUNTER → 2022-06-14 15:58 | Outpatient (BNVA) | payer MEDICARE, SELFPAY | PROVIDERS: PCP Internal Medicine; Visit Provider Anesthesiology | DX: G89.4 Chronic pain syndrome (principal); M47.27 Other spondylosis with radiculopathy, lumbosacral region; M48.062 Spinal stenosis, lumbar region with neurogenic claudication; G95.19 Other vascular myelopathies | CPT/HCPCS: Q3014 ==

== ENCOUNTER → 2022-12-14 14:37 | Outpatient (REF) | payer MEDICARE, MEDICAID, SELFPAY ==
--- NOTE | 2022-12-14 14:51 | CA_ITS ---
Transthoracic Echocardiogram Patient (Last, First, Middle): Nick Escobar, Gender: Male Date of : 1960 Age: 62 Procedure Date: 12/14/2022 Procedure Type: Transthoracic Echocardiogram Location: OP Height: 170.18 cm Weight: 95.26 kg BSA: 2.06 m2 Heart Rate: 72 bpm BP: 120 / 65 mmHg Service Order Expediter: RD Referring MD: Stan Fletcher MD [place] Roofer: Erlin Regalado MD Symptoms: INCREASED R/S RATIO IN V1 ON EKG,POSTERIOR INFART R00.2 PALPITATIONS Study Quality: Fair ECG Rhythm: Sinus Conclusions: - Essentially normal study Findings Left Ventricle Normal left ventricular size, thickness, and systolic function. The visually estimated ejection fraction is between 65-70%. Spectral Doppler is indicative of a normal filling pattern. Peak GLS is -19.6%, within normal limits. Right Ventricle Normal right ventricular cavity size and systolic function. Atria The left atrium is normal in size. There is no evidence of interatrial shunt. The right atrium was not well visualized. Aortic Valve The aortic valve structure and function is likely normal. There is no aortic valve stenosis. There is no aortic valve regurgitation. Mitral Valve Likely normal mitral valve structure and function. There is no mitral valve regurgitation. There is no mitral valve stenosis. Pulmonic Valve The pulmonic valve was not well visualized. Tricuspid Valve Likely normal tricuspid valve structure and function. There is trace tricuspid valve regurgitation. The right ventricular systolic pressure is normal. The right ventricular systolic pressure is 17 mmHg. Normal right atrial pressure. There is no evidence of pulmonary hypertension. Great Vessels All visible segments of the aorta are normal in size. The pulmonary artery was not well visualized. Venous The inferior vena cava is normal in size and collapses greater than 50% with inspiration. Pericardium/Pleural There is no evidence of pericardial effusion. Prior Study Comparison No prior study available for comparison. Measurements 2D Linear Measurements IVSd: 0.85 0.6-0.9/0.6-1.0 cm LVIDd: 3.43 3.9-5.3/4.2-5.9 cm LVIDd Index: 1.67 2.4-3.2/2.2-3.1 cm/m2 LVIDs: 2.20 2.0-3.6 cm LVPWd: 1.05 0.7-1.1 cm LA Diam: 3.60 2.7-3.8/3.0-4.0 cm LAIDs Index: 1.75 1.5-2.3 cm/m2 LV Mass: 115.69 67-162/88-224 g LV Mass Index: 56.16 43-95/49-115 g/m2 LVOT Diam: 2.10 3.0+(-)1.3 cm 2D Systolic Function EF 4C: 71.40 >55% EF 2C: 66.90 >55% EF BiP: 69.30 >55% Mitral Valve MV Pk E: 0.86 MV PK A: 0.92 MV Decel Time: 211.00 E/A: 0.90 E'Lateral: 9.79 E'Medial: 8.27 E/E' Med: 10.40 E/E' Lat: 8.80 PHT: 62.00 MVA PHT: 3.55 Decel Mccracken: 4.06 Aortic Valve AoV Pk Manjeet: 1.37 AoV Mn Manjeet: 1.01 AoV VTI: 0.29 AoV Pk Grad: 8.00 Aov Mn Grad: 4.00 IRMA Cont.VTI: 2.66 LVOT LVOT Pk Manjeet: 1.06 LVOT Mn Manjeet: 0.76 LVOT VTI: 0.22 LVOT Pk Grad: 4.00 LVOT Mn Grad: 3.00 LVOT Diam: 2.10 LVOT Area: 3.46 Diastolic Function MV Pk E: 0.86 MV Pk A: 0.92 E/A: 0.90 E'Medial: 8.27 E/E' Med: 10.40 E' Laterial: 9.79 E/E' Lat: 8.80 Right Ventricle TAPSE (mm): 21.90 TVS' Manjeet: 12.30 Tricuspid Valve TR Pk Manjeet: 1.86 TR Pk Grad: 14.00 RA Press: 3.00 RVSP: 17.00 Great Vessels Aorta Sinus of Valsalva: 3.70 2.0-3.5 cm Ao Asc: 3.20 2.1-3.4 cm Pulmonary Valve PV Pk Manjeet: 0.87 Peak PV Grad: 3.00 Updated in Other Vendor System with Status of Final Erlin Regalado MD electronically signed on 12/15/2022 9:06:14 AM with status of Final
== END ==
LOC: HO.CARD 14:37
PROVIDERS: Visit Provider Internal Medicine
DX: R00.2 Palpitations (principal)
CPT/HCPCS: 93306; 93356

== ENCOUNTER 2022-12-25 11:43 | Inpatient (IN) | payer MEDICARE, OTHER, MEDICAID, SELFPAY ==
--- NOTE | 2022-12-06 | ECG_ITS ---
Test Reason : preop Blood Pressure : / mmHG Vent. Rate : 059 BPM Atrial Rate : 059 BPM P-R Int : 178 ms QRS Dur : 088 ms QT Int : 386 ms P-R-T Axes : 012 -32 026 degrees QTc Int : 382 ms Sinus bradycardia Left axis deviation Increased R/S ratio in V1, consider early transition or posterior infarct Abnormal ECG No previous ECGs available Referred By: Lissa Regan Electronically Signed By:GABRIEL HILTON
[2022-12-06 11:51] VITALS: BP 140/79; PULSE 60; RESP 16; O2SAT 97; BMI 33.2
--- NOTE | 2022-12-06 12:11 | HO.ANESPROP2 ---
Documented by User: Lissa Regan NP 12/22/22 08:51 HPI - Anesthesia Eval Consult details Narrative: 61yo M for Oblique Lateral Interbody Fusion L4-5, 12/25/22 s/p Lumbar Spinal Cord Stimulation Implant 02/2022 with GA-ETT 7.5 Deaf requiring manager care management Per PCP, needs echo preop. Done and WNL. Cleared to proceed PMFSH Active Problems Active Problems: All Active Problems (Updated 06/14/22 @ 16:22 by Ryan Randle MD) Neurogenic claudication due to lumbar spinal stenosis (Acute) Neurogenic claudication (Acute) Spinal cord stimulator status (Acute) Right groin pain (Acute) Spondylosis of lumbosacral spine with radiculopathy (Acute) Lumbar facet arthropathy (Acute) Multilevel degenerative disc disease (Acute) Lumbar stenosis (Acute) Chronic pain syndrome (Acute) Diabetes (Acute) Past Medical History Medical History Chronic pain syndrome Deaf Diabetes Elevated cholesterol HTN (hypertension) Hx of renal calculi Personal history of COVID-19 S/P placement of nerve stimulator Seasonal allergies Family History Family History Mother History of lung cancer Family history of problems with anesthesia: No Surgical History Surgical History History of bilateral inguinal hernia repair History of lithotripsy History of right inguinal hernia repair (~12/29/19) Hx of cholecystectomy History of Problems with Anesthesia: No Social History Social History Are you a primary primary care provider to a significant other at home: No Do you presently have visiting nurse or other home services: No Alcohol intake: current Alcohol intake frequency: holidays/special occasions only Patient Tobacco Use Status: Never used Tobacco Narrative Narrative: No recent illness No CP/SOB with >4mets Meds Allergies Allergy/AdvReac Type Severity Reaction Status Date / Time bee pollen [BEE STINGS] Allergy Severe SWELLING Verified 12/25/22 09:26 and facial swelling Sulfa (Sulfonamide Allergy Severe swelling, Verified 12/25/22 09:26 Antibiotics) hives [SULFA (SULFONAMIDE ANTIBIOTICS)] adhesive AdvReac Intermediate Rash Verified 12/25/22 09:26 Home Medications Medication Instructions Recorded Confirmed Last Taken Type blood sugar diagnostic #10 ea 10/29/20 05/31/22 Unknown History cholecalciferol (vitamin D3) 25 25 mcg PO DAILY 10/29/20 12/05/22 Unknown History mcg (1,000 unit) capsule coenzyme Q10 100 mg capsule 100 mg PO DAILY 10/29/20 12/05/22 Unknown History (CoQ-10) glipizide 5 mg tablet 5 mg PO DAILY 10/29/20 12/05/22 Unknown History insulin glargine 100 unit/mL 55 unit subcut BEDTIME 10/29/20 05/31/22 11/17/21 22:00 History subcutaneous solution 30 units insulin lispro 100 unit/mL 10 - 15 unit subcut TID PRN 10/29/20 12/05/22 Unknown History subcutaneous pen Hyperglycemia insulin syringe-needle U-100 1 mL #10 ea 10/29/20 05/31/22 Unknown History 31 gauge x 01/02 loratadine 10 mg tablet 10 mg PO QAM 10/29/20 12/05/22 Unknown History mecobalamin (vitamin B12) 1,000 1,000 mcg sublingual DAILY 10/29/20 12/05/22 Unknown History mcg disintegrating tablet,sublingual pen needle, diabetic 31 gauge x #50 ea 10/29/20 05/31/22 Unknown History 3 sitagliptin phosphate 100 mg tablet 100 mg PO DAILY 10/29/20 12/05/22 Unknown History pitavastatin calcium 2 mg tablet 2 mg PO DAILY 03/30/22 12/05/22 Unknown History (Livalo) acetaminophen 500 mg tablet 500 mg PO Q6H PRN Pain 12/05/22 12/05/22 Unknown History aspirin 81 mg tablet,delayed 81 mg PO DAILY 12/05/22 12/05/22 12/04/22 08:00 History release gabapentin 300 mg capsule 300 mg TID 12/05/22 12/05/22 Unknown History ibuprofen 12/05/22 11/28/22 History tizanidine 4 mg tablet 4 mg PO Q6-8H PRN Pain 12/05/22 12/05/22 Unknown History lisinopril 20 mg tablet 20 mg QAM 12/25/22 12/25/22 12/25/22 05:00 History Exam Exam Date and Time: December 06, 2022 1211 Height,Weight and Vital Signs: Height 5 ft 7 in Weight 96.3 kg Last Vital Signs Pulse 60 12/06/22 11:51 Resp 16 12/06/22 11:51 BP 140/79 H 12/06/22 11:51 Pulse Ox 97 12/06/22 11:51 O2 Del Method Room Air 12/06/22 11:51 Pertinent Lab Results Pertinent Lab Results: A1C = 6.3 11/2022 from outside lab Lab Results 12/06/22 12/06/22 Range/Units 12:51 12:51 WBC 5.6 (4.8-10.8) X10*3/uL RBC 4.55 L (4.60-5.80) X10*6/uL Hgb 14.4 (14.0-18.0) g/dl Hct 42.9 (42.0-52.0) % MCV 94.3 (80.0-98.0) fL MCH 31.6 (27.0-33.0) pg MCHC 33.6 (31.0-36.0) g/dl RDW 12.3 (11.0-16.0) % Plt Count 182 (160-400) X10*3/uL MPV 9.4 (9.4-12.4) fL Absolute Nucleated RBC 0.000 (0.0-0.012) X10*3/uL Nucleated RBC % (auto) 0.0 (0.0-0.2) /100WBC Sodium 139 (135-145) mmol/L Potassium 4.4 (3.3-5.1) mmol/L Chloride 106 (96-108) mmol/L Carbon Dioxide 29 (22-29) mmol/L Anion Gap 8 L (12-20) BUN 28 H (9-16) mg/dL Creatinine 1.54 H (0.5-1.4) mg/dL Estim Creat Clear Calc 56.4 Estimated GFR 46 Random Glucose 131 H (60-115) mg/dL Calcium 9.4 (8.4-10.2) mg/dL Narrative Narrative: EKG 11/2022 Vent. Rate : 059 BPM ? ? Atrial Rate : 059 BPM ?? P-R Int : 178 ms? QRS Dur : 088 ms ? ? QT Int : 386 ms ? ? ? P-R-T Axes : 012 -32 026 degrees ?? QTc Int : 382 ms ? Sinus bradycardia Left axis deviation Increased R/S ratio in V1, consider early transition or posterior infarct Abnormal ECG No previous ECGs available ECHO 11/2022 Conclusions: - Essentially normal study Airway Mallampati Class: III TM Dist: >3cm Neck ROM: Full Denture: Upper Partial: Lower Heart: RRR Lungs: CTAB Assessment and Plan Assessment Anesthesia Assessment: Anesthesia Plan Discussed and PAT Visit Final Anesthetic Review Family History of Problems with Anesthesia: No History of Problems with Anesthesia: No Documented by User: Domo Medina MD 12/25/22 10:17 [facility] Past Medical History Medical History Chronic pain syndrome Deaf Diabetes Elevated cholesterol HTN (hypertension) Hx of renal calculi Personal history of COVID-19 S/P placement of nerve stimulator Seasonal allergies Family History Family History Mother History of lung cancer Surgical History Surgical History History of bilateral inguinal hernia repair History of lithotripsy History of right inguinal hernia repair (~12/29/19) Hx of cholecystectomy Social History Social History Are you a primary primary care provider to a significant other at home: No Do you presently have visiting nurse or other home services: No Alcohol intake: current Alcohol intake frequency: holidays/special occasions only Patient Tobacco Use Status: Never used Tobacco Meds Allergies Allergy/AdvReac Type Severity Reaction Status Date / Time bee pollen [BEE STINGS] Allergy Severe SWELLING Verified 12/25/22 09:26 and facial swelling Sulfa (Sulfonamide Allergy Severe swelling, Verified 12/25/22 09:26 Antibiotics) hives [SULFA (SULFONAMIDE ANTIBIOTICS)] adhesive AdvReac Intermediate Rash Verified 12/25/22 09:26 Home Medications Medication Instructions Recorded Confirmed Last Taken Type blood sugar diagnostic #10 ea 10/29/20 05/31/22 Unknown History cholecalciferol (vitamin D3) 25 25 mcg PO DAILY 10/29/20 12/05/22 Unknown History mcg (1,000 unit) capsule coenzyme Q10 100 mg capsule 100 mg PO DAILY 10/29/20 12/05/22 Unknown History (CoQ-10) glipizide 5 mg tablet 5 mg PO DAILY 10/29/20 12/05/22 Unknown History insulin glargine 100 unit/mL 55 unit subcut BEDTIME 10/29/20 05/31/22 11/17/21 22:00 History subcutaneous solution 30 units insulin lispro 100 unit/mL 10 - 15 unit subcut TID PRN 10/29/20 12/05/22 Unknown History subcutaneous pen Hyperglycemia insulin syringe-needle U-100 1 mL #10 ea 10/29/20 05/31/22 Unknown History 31 gauge x 5/16 loratadine 10 mg tablet 10 mg PO QAM 10/29/20 12/05/22 Unknown History mecobalamin (vitamin B12) 1,000 1,000 mcg sublingual DAILY 10/29/20 12/05/22 Unknown History mcg disintegrating tablet,sublingual pen needle, diabetic 31 gauge x #50 ea 10/29/20 05/31/22 Unknown History 3/16 sitagliptin phosphate 100 mg tablet 100 mg PO DAILY 10/29/20 12/05/22 Unknown History pitavastatin calcium 2 mg tablet 2 mg PO DAILY 03/30/22 12/05/22 Unknown History (Livalo) acetaminophen 500 mg tablet 500 mg PO Q6H PRN Pain 12/05/22 12/05/22 Unknown History aspirin 81 mg tablet,delayed 81 mg PO DAILY 12/05/22 12/05/22 12/04/22 08:00 History release gabapentin 300 mg capsule 300 mg TID 12/05/22 12/05/22 Unknown History ibuprofen 12/05/22 11/28/22 History tizanidine 4 mg tablet 4 mg PO Q6-8H PRN Pain 12/05/22 12/05/22 Unknown History lisinopril 20 mg tablet 20 mg QAM 12/25/22 12/25/22 12/25/22 05:00 History Assessment and Plan Assessment Anesthesia Assessment: Chart Reviewed Final Anesthetic Review NPO: Yes ASA Class: III Final Preanesthetic Review: No Changes in Pt Med Stat, Meds/Allgs Chart Reviewed, Consent Obtained/Reviewed and Anes Risks/Benef Reviewed Patient Risk: Intermediate Procedure Risk: Intermediate Anesthetic Plan Anesthetic Plan: GA Disposition: Standard PACU
[2022-12-06 13:04] LABS: Hematocrit 42.9 % (42.0-52.0); Hemoglobin 14.4 g/dl (14.0-18.0); Mean Corpuscular HGB Conc 33.6 g/dl (31.0-36.0); Mean Corpuscular Hemoglobin 31.6 pg (27.0-33.0); Mean Corpuscular Volume 94.3 fL (80.0-98.0); Mean Platelet Volume 9.4 fL (9.4-12.4); Platelet Count 182 X10*3/uL (160-400); Red Blood Count 4.55 X10*6/uL (4.60-5.80); Red Cell Distribution Width 12.3 % (11.0-16.0); White Blood Count 5.6 X10*3/uL (4.8-10.8)
[2022-12-06 13:33] LABS: Anion Gap 8 (12-20); Blood Urea Nitrogen 28 mg/dL (9-16); Calcium 9.4 mg/dL (8.4-10.2); Carbon Dioxide 29 mmol/L (22-29); Chloride 106 mmol/L (96-108); Creatinine Clr Calc Pharmacy 56.4; Estimated Glomerular Filt Rate 46; Glucose Random 131 mg/dL (60-115); Potassium 4.4 mmol/L (3.3-5.1); Sodium 139 mmol/L (135-145)
[2022-12-25] VITALS (16 sets, daily range): BP systolic 106–142; BP diastolic 60–89; PULSE 64–93; RESP 0–20; TEMP 36–37.2; O2SAT 91–100
--- NOTE | ~2022-12-25 | FL_ITS ---
EXAMINATION: XR FLUOROSCOPY WITH IMAGES CLINICAL INFORMATION: Oblique lateral interbody fusion, L4-L5. COMPARISON: MRI of 12/07/2020 TECHNIQUE: Fluoroscopy Supervised By: Dr. Martinez. Fluoroscopy Time: 1.5 minutes. Cumulative Dose: 123 mGy-cm DAP: 14.4 uGy-cm2 Images: 4. FINDINGS: Imaging demonstrates pedicle screw and samina fixation at the L4-L5 level with interdisc spacer. Hardware appears intact. FL/FL guidance in OR IMPRESSION: Intraoperative fluoroscopy for orthopedic procedure.
[2022-12-25] MEDS: Gabapentin 600 MG TABLET 300 MG PO (09:53)
[2022-12-25] MEDS: methocarbamoL 750 MG TABLET PO (09:53)
[2022-12-25] MEDS: Lactated Ringers 1,000 ML 100 ML IVCONT (10:10)
[2022-12-25 11:35] LABS: Glucose, Whole Blood 188 mg/dL (60-115)
--- NOTE | 2022-12-25 14:23 | W.PM.OPN ---
Operative Note Operative Note Date of Service: 12/25/22 Narrative: Preop Diagnosis: 1.) Lumbar spondylolisthesis with neurogenic claudication 2.) same Procedure: L4-5 discectomy, arthrodesis and implantation cage through an anterolateral, retroperitoneal approach; posterior instrumented fusion L4-5; allograft Consent Informed Consent was obtained for this operation. I have explained the nature, purpose and benefits of the operation. I have discussed the risks and benefit of the operation including possible complications or adverse events with patient/family. Alternative(s) were discussed with the patient with their relative benefits and risks as well as the consequences of not accepting the operation were included in obtaining consent. Surgeon: NAPOLEON ELLIS MD, PHD Procedure Assisted By: [] Description of Procedure the patient had a spinal cord stimulator placed for chronic back pain and bilateral leg pain. We discovered a lumbar spondylolisthesis during our evaluation. Therefore recommended for move to spinal cord stimulator and provide a minimally invasive lumbar fusion.The patient was offered an oblique lumbar interbody fusion L4-5. The procedure complications were explained. The patient was consented. The patient was brought to the operating room and endotracheally intubated. The patient was turned in a lateral position with the left side up. Prep and drape was done followed by timeout. A small incision was made in the left lower abdominal quadrant. The muscle fascia was opened after which the 3 muscle layer was split to enter the retroperitoneal space. Dilators were docked in the anterior one third of the L4-5 disc space followed by a retractor. The retractor was opened. The L4-5 disc space was exposed. An annulotomy was done after which an elevator Tilley was used to release the disc material from its endplates and to perforate the contralateral side. A partial discectomy was done. An and 8 and 10 mm height trial implant was inserted. The discectomy was completed. The endplates were prepared. An 10 x 50 mm with 0 degree lordosis 4 web cage filled with allograft was inserted into the disc space under fluoroscopic guidance. This resulted in []. The retractor was removed. Hemostasis was done. The incision was closed in 2 layers. Steri-Strips used to approximate incision. An OpSite with Tegaderm was used to cover the incision. This marked first part of the procedure. The patient was turned prone on the Damian spine table. 2C arms were installed for fluoroscopy. Prep and drape was done followed by a second timeout. 2 paramedian incisions were made lateral from the L4-5 pedicles The muscle fascia was opened after which the muscle layer was split bluntly to expose the posterolateral gutter. The following steps were taken. A pediguard tap was used to create a transpedicular trajectory into the vertebral body. A K wire was placed. A specially designed instrument was advanced over the K wire to decorticate the posterolateral gutter in preparation for the posterolateral fusion. A pedicle screw was advanced over the K wire and the K wire was removed. The steps were done for the bilateral L4 and L5 pedicles. A total of for screws were placed with a diameter of 6.5 x 45 mm. Pedicle screws were connected with 45 mm samina bilaterally and locked down with locking caps. The extension towers were removed. The posterolateral gutter was filled with allograft to complete the posterolateral L4-5 fusion Hemostasis was done and the incision was closed in 2 layers. Steri-Strips were used to approximate the incision. An OpSite were taken and was used to cover the incision. All sponge and needle counts were correct. Patient was extubated and transferred in stable is to recovery room. this procedure was done with the aid of a physician assistant chief engineer. he inserted the rods and locked down the pedicle screws. He also did hemostasis and closure of the incisions. Anesthesia: General Estimated Blood Loss (ml): Thirty Duration of Surgery: 2 hours Postoperative Plan: Admit to floor for observation Complications: None
[2022-12-25] MEDS: fentaNYL citrate/PF 100 MCG/2 ML VIAL 25 MCG IVPUSH ×4 (14:56→15:12)
[2022-12-25] MEDS: HYDROmorphone HCl 0.5 MG/0.5 ML SYRINGE 0.25 MG IVPUSH ×2 (15:19→15:22)
--- NOTE | 2022-12-25 15:29 | HO.NEURO.PN ---
Neurosurgery Operative Note Date of Service: 12/25/22 Narrative: Patient seen postoperatively in the PACU by myself and Dr. Martinez Patient is still slightly sleepy, senior visual designer at the bedside, we updated him that the surgery went successfully, but that he should expect to have some back pain. He is able to move all 4 extremities, no obvious deficit in the lower extremities. Back dressing slightly stained. Impression: Status post L4-5 oblique lumbar interbody fusion, clinically doing okay, plan will be to mobilize, advance diet anticipate home tomorrow morning. I will hold his Lantus johnson to lie know that he is eating, he is on a sliding scale and his home Trulicity. He is due to void.
[2022-12-25] MEDS: oxyCODONE HCl Immed Release 5 MG TABLET 10 MG PO (18:12)
[2022-12-25 18:13] LABS: Glucose, Whole Blood 202 mg/dL (60-115)
[2022-12-25] MEDS: lisinopriL 20 MG TABLET PO (18:13)
[2022-12-25] MEDS: 0.9 % Sodium Chloride 1,000 ML 75 ML IVCONT (18:14)
[2022-12-25] MEDS: Gabapentin 300 MG CAPSULE PO ×2 (18:14→20:28)
[2022-12-25] MEDS: Acetaminophen 1,000 MG/100 ML PIGGYBACK 400 MG IV ×2 (18:14→22:58)
[2022-12-25] MEDS: Loratadine 10 MG TABLET PO (18:14)
[2022-12-25] MEDS: ceFAZolin Sodium/Dextrose,Iso 2 GM/50 ML PIGGYBACK IV ×2 (19:29→23:04)
[2022-12-25 20:02] LABS: Glucose, Whole Blood 249 mg/dL (60-115)
[2022-12-25] MEDS: Docusate Sodium 100 MG CAPSULE PO (20:28)
[2022-12-25] MEDS: Insulin Lispro 100 UNIT/ML 3 ML VIAL SUBCUT (20:28)
[2022-12-25] MEDS: HYDROmorphone HCl 1 MG/ML SYRINGE IVPUSH (23:04)
[2022-12-26] MEDS: oxyCODONE HCl Immed Release 5 MG TABLET PO ×2 (03:57→12:26)
[2022-12-26 04:00] VITALS: BP 137/67; PULSE 75; RESP 16; TEMP 36.3; O2SAT 95
[2022-12-26] MEDS: Acetaminophen 1,000 MG/100 ML PIGGYBACK 400 MG IV ×2 (05:21→10:43)
[2022-12-26] MEDS: ceFAZolin Sodium/Dextrose,Iso 2 GM/50 ML PIGGYBACK IV (05:22)
[2022-12-26] MEDS: 0.9 % Sodium Chloride 1,000 ML 75 ML IVCONT (05:57)
[2022-12-26 07:21] VITALS: BP 117/61; PULSE 74; RESP 18; TEMP 37.2; O2SAT 93
[2022-12-26 07:43] LABS: Glucose, Whole Blood 221 mg/dL (60-115)
[2022-12-26] MEDS: Insulin Lispro 100 UNIT/ML 3 ML VIAL SUBCUT ×2 (08:20→12:26)
[2022-12-26] MEDS: oxyCODONE HCl Immed Release 5 MG TABLET 10 MG PO (08:20)
[2022-12-26] MEDS: Cyanocobalamin (Vitamin B-12) 1,000 MCG TABLET 1000 MCG PO (08:21)
[2022-12-26] MEDS: Gabapentin 300 MG CAPSULE PO (08:22)
[2022-12-26] MEDS: lisinopriL 20 MG TABLET PO (08:22)
[2022-12-26] MEDS: Loratadine 10 MG TABLET PO (08:22)
[2022-12-26] MEDS: Docusate Sodium 100 MG CAPSULE PO (08:22)
[2022-12-26] MEDS: SITagliptin Phosphate 100 MG TABLET PO (08:22)
[2022-12-26] MEDS: glipiZIDE 5 MG TABLET PO (08:22)
[2022-12-26 09:42] LABS: Glucose, Whole Blood 255 mg/dL (60-115)
[2022-12-26 11:28] LABS: Glucose, Whole Blood 207 mg/dL (60-115)
--- NOTE | 2022-12-26 12:44 | HO.NEUROPN_ITS ---
Neurosurgery Operative Note Date of Service: 12/26/22 Narrative: Postoperative MR 1 L4-5 oblique lumbar interbody fusion patient seen at bedside this morning with Dr. Martinez. No public health aide in [place] will. We did use a written communication with the patient. He reports his night was otherwise okay. Denies any pain radiating down the legs. No tingling numbness or weakness. He had been out of bed, voiding okay. He told us he was tolerating a diet okay. Afebrile, vital signs stable physical exam: Patient is awake alert oriented , cooperative, strength in bilateral lower extremities is full, abdomen soft nondistended nontender, obese, left lower quadrant sitters clean and dry, back dressings have small amount of staining. Impression: Postop day 1. L4-5 oblique lumbar interbody fusion, clinically doing well. We will have the patient see PT today, get up move around but plan on discharge home today. Patient seen at bedside with Dr. Martinez.
--- NOTE | 2022-12-26 12:47 | PM.DS ---
DS: Providers Provider Date of Service: 12/25/22 Date of admission: 12/25/22 11:43 Date of discharge: 12/26/22 Primary care physician: Tami Siu MD Admitting clinician: Antwan Martinez DS: Diagnosis Discharge Diagnosis (1) Neurogenic claudication due to lumbar spinal stenosis: Status: Acute DS: Summary Time Spent with Patient Time attestation: Total time managing care of this patient today ____ minutes. Discharge coordination time: Less than 30 minutes Quality: Safe Use of Opioids Does Pt have an Active Cancer Diagnosis on the Problem List?: No Quality: Stroke Does the patient have a stroke diagnosis?: No Physical Exam Vital Signs: Vital Signs: Last Vital Signs Temp 98.9 F 12/26/22 07:21 Pulse 74 12/26/22 07:21 Resp 18 12/26/22 07:21 BP 117/61 12/26/22 07:21 Pulse Ox 93 12/26/22 07:21 O2 Del Method Room Air 12/26/22 07:21 O2 Flow Rate 3 12/25/22 16:17 BMI result Body Mass Index 33.2 DS: Data Data Completed and Pending Labs on day of discharge: Laboratory Results - last 24 hr 12/25/22 12/25/22 12/26/22 18:09 19:58 07:20 POC Glucose 202 H 249 H 221 H 12/26/22 12/26/22 09:38 11:17 POC Glucose 255 H 207 H Discharge Plan Discharge Anticipated Discharge Date/Time: 12/26/22 12:49 Patient Disposition: Home, Self-Care Discharge Diagnosis: lumbar spondylolisthesis Referrals: Tami Siu MD [Primary Care Provider] - 1 Week Discharge Medications: New oxycodone 5 mg tablet See Rx Instructions .ROUTE .COMPLEX PRN (Reason: pain) Qty: 40 0RF Rx Instructions: 1-2 tabs po q 4 hours prn pain Partial Fill upon patient request. docusate sodium [Colace] 100 mg capsule 100 mg PO BID Qty: 20 0RF Continued gabapentin 300 mg capsule 300 mg TID tizanidine 4 mg tablet 4 mg PO Q6-8H PRN (Reason: Pain) aspirin 81 mg Tablet,Delayed Release (Dr/Ec) 81 mg PO DAILY acetaminophen 500 mg Tablet 500 mg PO Q6H PRN (Reason: Pain) lisinopril 20 mg tablet 20 mg QAM loratadine 10 mg tablet 10 mg PO QAM Livalo 2 mg tablet 2 mg PO DAILY Discontinued oxycodone 5 mg tablet 5 mg PO Q6H PRN (Reason: pain) 5 Days Qty: 20 0RF Rx Instructions: Partial Fill only upon patient request. No Action insulin lispro 100 unit/mL insulin pen 10 - 15 unit subcut TID PRN (Reason: Hyperglycemia) glipizide 5 mg tablet 5 mg PO TIDWM Januvia 100 mg tablet 100 mg PO DAILY cholecalciferol (vitamin D3) 25 mcg (1,000 unit) capsule 25 mcg PO DAILY mecobalamin (vitamin B12) 1,000 mcg tablet,disintegrating 1,000 mcg sublingual DAILY Rx Instructions: place tablet under tongue and allow to dissolve for at least30 secs before swallowing coenzyme Q10 [CoQ-10] 100 mg capsule 100 mg PO DAILY (DME) pen needle, diabetic 31 gauge x 3/16 needle See Rx Instructions .ROUTE QID Qty: 50 Rx Instructions: As directed Lantus U-100 Insulin 100 unit/mL solution 55 unit subcut BEDTIME (DME) insulin syringe-needle U-100 1 mL 31 gauge x 5/16 syringe See Rx Instructions .ROUTE .MEDSUPPLY Qty: 10 Rx Instructions: As directed (DME) OneTouch Ultra Blue Test Strip Strip See Rx Instructions Not Applicable TID Qty: 10 Rx Instructions: As directed Discharge Orders: Discharge Order (Routine); Ordered 12/26/22 Ordered By: Mark Meyers Diet: Diabetic diet Activity on Discharge: As tolerated Stand Alone Forms: Patient Portal Discharge page Activity Restrictions/Additional Instructions: After your spinal surgery we ask you to observe the following restrictions/guidelines: Activity: It is normal to feel some discomfort as you increase your activity, but that will improve with time. We ask you avoid heavy lifting or acitivities that cause pain. As a general rule, 8lbs is a safe limit for lifting right after surgery. Walk as much as you feel comfortable but not to exhaustion. You will feel extra tired the first few days after surgery. Stay well hydrated. It is OK to walk up and down stairs You may return to driving when you are off narcotics (such as vicodin, oxycodone, dilaudid, etc), and you are back to normal functional capacity. If you have any concerns please check with office before driving. Return to work is specific to each patient and each surgery, so please speak with your doctor/PA at first follow up. Please bring paperwork such as FMLA at that time if you need it filled out. Medications: We will give you a short supply of narcotics after surgery (usually one weeks worth). If you need more please call the office but do not use more than prescribed. You will need to give our office 48 hours notice if you need narcotics refilled and we do not fill narcotics on weekends or evenings. If you are on a narcotic, it is a good idea to take a stool softener such as colace or senna to avoid constipation If you take blood thinner such as aspirin, Plavix, Coumadin, Effient, Eliquis etc for conditions such as Afib, DVT, Pulmonary embolus, coronary disease, stents etc please speak with your surgeon about specific details as to when you can resume these medications. You can resume NSAIDs on post op day 1 (eg: Motrin, Naproxen, etc). Follow up: Please call the office, , after surgery to arrange a 3 week follow up for wound check. Wound Care: You may remove your dressing on the first day after surgery. You may leave open to air. Please do not remove the steri strips underneath. they will fall off on their own in one week. IT IS NORMAL FOR THE WOUND TO OOZE OR BE BLOODY FOR A FEW DAYS AFTER SURGERY. IF THIS HAPPENS JUST PLACE NEW DRESSING OVER IT TO AVOID STAINING CLOTHES. You may shower on post op day # 1 We ask that you do not let the water soak the wound. If it does get wet, just towel dry lightly. Please do not scrub your incision or place any type of chemical/ointment on the wound. No tub baths, pools or jacuzzis for one month. If you have any leaking or redness from your wound, or fevers, please call office Care Plan Goals: discharge home Health Concerns: none Plan of Treatment: discharge home Assessment: stable
--- NOTE | 2022-12-26 13:23 | MHC.CM.PN ---
met with pt ,his and brother pt and wufe are deaf it was explined that pt had no servcies prior to admisison is independent sarika kaufman and jessy a ride home when dcd pt is dcd today
--- NOTE | 2022-12-26 14:08 | HO.POSTANES ---
Post Anesthesia Evaluation Post Anesthesia Evaluation Vital Signs: Vital Signs Temp Pulse Resp BP Pulse Ox O2 Del Method 12/26/22 07:21 98.9 F 74 18 117/61 93 Room Air 12/26/22 04:00 97.3 F 75 16 137/67 95 Room Air Anesthesia: General Endotracheal-GETA Mental Status: Awake Pain Control: Satisfactory Nausea/Vomiting: None Hydration: Adequate Anesthesia-Related Issues: No Anes. Related Issues
--- NOTE | 2022-12-26 14:38 | P.DS_ITS ---
DS: Providers Provider Date of Service: 12/26/22 Date of admission: 12/25/22 11:43 Primary care physician: Tami Siu MD DS: Diagnosis Discharge Diagnosis (1) Neurogenic claudication due to lumbar spinal stenosis: Status: Acute DS: Summary Time Spent with Patient Time attestation: Total time managing care of this patient today ____ minutes. Discharge coordination time: Less than 30 minutes Quality: Safe Use of Opioids Does Pt have an Active Cancer Diagnosis on the Problem List?: No Quality: Stroke Does the patient have a stroke diagnosis?: No Physical Exam Vital Signs: Vital Signs: Last Vital Signs Temp 98.9 F 12/26/22 07:21 Pulse 74 12/26/22 07:21 Resp 18 12/26/22 07:21 BP 117/61 12/26/22 07:21 Pulse Ox 93 12/26/22 07:21 O2 Del Method Room Air 12/26/22 07:21 O2 Flow Rate 3 12/25/22 16:17 BMI result Body Mass Index 33.2 DS: Data Data Completed and Pending Labs on day of discharge: Laboratory Results - last 24 hr 12/25/22 12/25/22 12/26/22 18:09 19:58 07:20 POC Glucose 202 H 249 H 221 H 12/26/22 12/26/22 09:38 11:17 POC Glucose 255 H 207 H Discharge Plan Discharge Anticipated Discharge Date/Time: 12/26/22 12:49 Patient Disposition: Home, Self-Care Discharge Diagnosis: lumbar spondylolisthesis Referrals: Tami Siu MD [Primary Care Provider] - 1 Week Discharge Medications: New oxycodone 5 mg tablet See Rx Instructions .ROUTE .COMPLEX PRN (Reason: pain) Qty: 40 0RF Rx Instructions: 1-2 tabs po q 4 hours prn pain Partial Fill upon patient request. (DME) Shower Chair Misc See Rx Instructions .Route Qty: 1 0RF Rx Instructions: As directed (DME) cane Device See Rx Instructions .Route Qty: 1 0RF Rx Instructions: As directed docusate sodium [Colace] 100 mg capsule 100 mg PO BID Qty: 20 0RF Continued gabapentin 300 mg capsule 300 mg TID tizanidine 4 mg tablet 4 mg PO Q6-8H PRN (Reason: Pain) aspirin 81 mg Tablet,Delayed Release (Dr/Ec) 81 mg PO DAILY acetaminophen 500 mg Tablet 500 mg PO Q6H PRN (Reason: Pain) lisinopril 20 mg tablet 20 mg QAM loratadine 10 mg tablet 10 mg PO QAM Livalo 2 mg tablet 2 mg PO DAILY Discontinued oxycodone 5 mg tablet 5 mg PO Q6H PRN (Reason: pain) 5 Days Qty: 20 0RF Rx Instructions: Partial Fill only upon patient request. No Action insulin lispro 100 unit/mL insulin pen 10 - 15 unit subcut TID PRN (Reason: Hyperglycemia) glipizide 5 mg tablet 5 mg PO TIDWM Januvia 100 mg tablet 100 mg PO DAILY cholecalciferol (vitamin D3) 25 mcg (1,000 unit) capsule 25 mcg PO DAILY mecobalamin (vitamin B12) 1,000 mcg tablet,disintegrating 1,000 mcg sublingual DAILY Rx Instructions: place tablet under tongue and allow to dissolve for at least30 secs before swallowing coenzyme Q10 [CoQ-10] 100 mg capsule 100 mg PO DAILY (DME) pen needle, diabetic 31 gauge x 3/16 needle See Rx Instructions .ROUTE QID Qty: 50 Rx Instructions: As directed Lantus U-100 Insulin 100 unit/mL solution 55 unit subcut BEDTIME (DME) insulin syringe-needle U-100 1 mL 31 gauge x 5/16 syringe See Rx Instructions .ROUTE .MEDSUPPLY Qty: 10 Rx Instructions: As directed (DME) OneTouch Ultra Blue Test Strip Strip See Rx Instructions Not Applicable TID Qty: 10 Rx Instructions: As directed Discharge Orders: Discharge Order (Routine); Ordered 12/26/22 Ordered By: Mark Meyers Diet: Diabetic diet Activity on Discharge: As tolerated Stand Alone Forms: Patient Portal Discharge page Activity Restrictions/Additional Instructions: After your spinal surgery we ask you to observe the following restrictions/guidelines: Activity: It is normal to feel some discomfort as you increase your activity, but that will improve with time. We ask you avoid heavy lifting or acitivities that cause pain. As a general rule, 8lbs is a safe limit for lifting right after surgery. Walk as much as you feel comfortable but not to exhaustion. You will feel extra tired the first few days after surgery. Stay well hydrated. It is OK to walk up and down stairs You may return to driving when you are off narcotics (such as vicodin, oxyc odone, dilaudid, etc), and you are back to normal functional capacity. If you have any concerns please check with office before driving. Return to work is specific to each patient and each surgery, so please speak with your doctor/PA at first follow up. Please bring paperwork such as FMLA at that time if you need it filled out. Medications: We will give you a short supply of narcotics after surgery (usually one weeks worth). If you need more please call the office but do not use more than prescribed. You will need to give our office 48 hours notice if you need narcotics refilled and we do not fill narcotics on weekends or evenings. If you are on a narcotic, it is a good idea to take a stool softener such as colace or senna to avoid constipation If you take blood thinner such as aspirin, Plavix, Coumadin, Effient, Eliquis etc for conditions such as Afib, DVT, Pulmonary embolus, coronary disease, stents etc please speak with your surgeon about specific details as to when you can resume these medications. You can resume NSAIDs on post op day 1 (eg: Motrin, Naproxen, etc). Follow up: Please call the office, , after surgery to arrange a 3 week follow up for wound check. Wound Care: You may remove your dressing on the first day after surgery. You may leave open to air. Please do not remove the steri strips underneath. they will fall off on their own in one week. IT IS NORMAL FOR THE WOUND TO OOZE OR BE BLOODY FOR A FEW DAYS AFTER SURGERY. IF THIS HAPPENS JUST PLACE NEW DRESSING OVER IT TO AVOID STAINING CLOTHES. You may shower on post op day # 1 We ask that you do not let the water soak the wound. If it does get wet, just towel dry lightly. Please do not scrub your incision or place any type of chemical/ointment on the wound. No tub baths, pools or jacuzzis for one month. If you have any leaking or redness from your wound, or fevers, please call office Care Plan Goals: discharge home Health Concerns: none Plan of Treatment: discharge home Assessment: stable
--- NOTE | 2022-12-26 15:45 | PM.DS ---
DS: Providers Provider Date of Service: 12/26/22 Date of admission: 12/25/22 11:43 Primary care physician: Tami Siu MD DS: Diagnosis Discharge Diagnosis (1) Neurogenic claudication due to lumbar spinal stenosis: Status: Acute DS: Summary Time Spent with Patient Time attestation: Total time managing care of this patient today ____ minutes. Discharge coordination time: Less than 30 minutes Quality: Safe Use of Opioids Does Pt have an Active Cancer Diagnosis on the Problem List?: No Quality: Stroke Does the patient have a stroke diagnosis?: No Physical Exam Vital Signs: Vital Signs: Last Vital Signs Temp 98.9 F 12/26/22 07:21 Pulse 74 12/26/22 07:21 Resp 18 12/26/22 07:21 BP 117/61 12/26/22 07:21 Pulse Ox 93 12/26/22 07:21 O2 Del Method Room Air 12/26/22 07:21 O2 Flow Rate 3 12/25/22 16:17 BMI result Body Mass Index 33.2 DS: Data Data Completed and Pending Labs on day of discharge: Laboratory Results - last 24 hr 12/25/22 12/25/22 12/26/22 18:09 19:58 07:20 POC Glucose 202 H 249 H 221 H 12/26/22 12/26/22 09:38 11:17 POC Glucose 255 H 207 H Discharge Plan Discharge Anticipated Discharge Date/Time: 12/26/22 12:49 Patient Disposition: Home, Self-Care Discharge Diagnosis: lumbar spondylolisthesis Referrals: Stan Fletcher MD [Physician] - 1 Week Discharge Medications: New (DME) Shower Chair Misc See Rx Instructions .Route Qty: 1 0RF Rx Instructions: As directed (DME) cane Device See Rx Instructions .Route Qty: 1 0RF Rx Instructions: As directed oxycodone 5 mg tablet See Rx Instructions .ROUTE .COMPLEX PRN (Reason: pain) Qty: 40 0RF Rx Instructions: 1-2 tabs po q4 hours prn pain Partial Fill upon patient request. docusate sodium [Colace] 100 mg capsule 100 mg PO BID Qty: 20 0RF docusate sodium [Colace] 100 mg capsule 100 mg PO BID Qty: 20 0RF Continued gabapentin 300 mg capsule 300 mg TID tizanidine 4 mg tablet 4 mg PO Q6-8H PRN (Reason: Pain) aspirin 81 mg Tablet,Delayed Release (Dr/Ec) 81 mg PO DAILY acetaminophen 500 mg Tablet 500 mg PO Q6H PRN (Reason: Pain) lisinopril 20 mg tablet 20 mg QAM loratadine 10 mg tablet 10 mg PO QAM Livalo 2 mg tablet 2 mg PO DAILY No Action insulin lispro 100 unit/mL insulin pen 10 - 15 unit subcut TID PRN (Reason: Hyperglycemia) glipizide 5 mg tablet 5 mg PO TIDWM Januvia 100 mg tablet 100 mg PO DAILY cholecalciferol (vitamin D3) 25 mcg (1,000 unit) capsule 25 mcg PO DAILY mecobalamin (vitamin B12) 1,000 mcg tablet,disintegrating 1,000 mcg sublingual DAILY Rx Instructions: place tablet under tongue and allow to dissolve for at least30 secs before swallowing coenzyme Q10 [CoQ-10] 100 mg capsule 100 mg PO DAILY (DME) pen needle, diabetic 31 gauge x 3/16 needle See Rx Instructions .ROUTE QID Qty: 50 Rx Instructions: As directed Lantus U-100 Insulin 100 unit/mL solution 55 unit subcut BEDTIME (DME) insulin syringe-needle U-100 1 mL 31 gauge x 5/16 syringe See Rx Instructions .ROUTE .MEDSUPPLY Qty: 10 Rx Instructions: As directed (DME) OneTouch Ultra Blue Test Strip Strip See Rx Instructions Not Applicable TID Qty: 10 Rx Instructions: As directed oxycodone 5 mg tablet 5 mg PO Q6H PRN (Reason: pain) 5 Days Qty: 20 0RF Rx Instructions: Partial Fill only upon patient request. Discharge Orders: Discharge Order (Routine); Ordered 12/26/22 Ordered By: Mark Meyers Diet: Diabetic diet Activity on Discharge: As tolerated Stand Alone Forms: Patient Portal Discharge page Activity Restrictions/Additional Instructions: After your spinal surgery we ask you to observe the following restrictions/guidelines: Activity: It is normal to feel some discomfort as you increase your activity, but that will improve with time. We ask you avoid heavy lifting or acitivities that cause pain. As a general rule, 8lbs is a safe limit for lifting right after surgery. Walk as much as you feel comfortable but not to exhaustion. You will feel extra tired the first few days after surgery. Stay well hydrated. It is OK to walk up and down stairs You may return to driving when you are off narcotics (such as vicodin, oxycodone, dilaudid, etc), and you are back to normal functional capacity. If you have any concerns please check with office before driving. Return to work is specific to each patient and each surgery, so please speak with your doctor/PA at first follow up. Please bring paperwork such as FMLA at that time if you need it filled out. Medications: We will give you a short supply of narcotics after surgery (usually one weeks worth). If you need more please call the office but do not use more than prescribed. You will need to give our office 48 hours notice if you need narcotics refilled and we do not fill narcotics on weekends or evenings. If you are on a narcotic, it is a good idea to take a stool softener such as colace or senna to avoid constipation If you take blood thinner such as aspirin, Plavix, Coumadin, Effient, Eliquis etc for conditions such as Afib, DVT, Pulmonary embolus, coronary disease, stents etc please speak with your surgeon about specific details as to when you can resume these medications. You can resume NSAIDs on post op day 1 (eg: Motrin, Naproxen, etc). Follow up: Please call the office, , after surgery to arrange a 3 week follow up for wound check. Wound Care: You may remove your dressing on the first day after surgery. You may leave open to air. Please do not remove the steri strips underneath. they will fall off on their own in one week. IT IS NORMAL FOR THE WOUND TO OOZE OR BE BLOODY FOR A FEW DAYS AFTER SURGERY. IF THIS HAPPENS JUST PLACE NEW DRESSING OVER IT TO AVOID STAINING CLOTHES. You may shower on post op day # 1 We ask that you do not let the water soak the wound. If it does get wet, just towel dry lightly. Please do not scrub your incision or place any type of chemical/ointment on the wound. No tub baths, pools or jacuzzis for one month. If you have any leaking or redness from your wound, or fevers, please call office Care Plan Goals: discharge home Health Concerns: none Plan of Treatment: discharge home Assessment: stable Discharge Date/Time: 12/26/22 16:45
[2022-12-26 15:59] VITALS: BP 128/69; PULSE 74; RESP 16; TEMP 36.6; O2SAT 95
== END 2022-12-26 16:45 | disposition home or self-care (01) | DRG 460 ==
LOC: HO.SSSA 14:54 → HO.S3 12-26 07:17 → HO.SSSA 01-09 14:04
PROVIDERS: Nurse Practitioner; Physician Assistant; Admitting Provider Neurological Surgery; PCP Internal Medicine; Visit Provider Neurological Surgery
PROC: 0SG Lower Joints, Fusion (ICD-10-PCS; principal; 2022-12-25 10:40)
DX: M48.062 Spinal stenosis, lumbar region with neurogenic claudication (principal); Z88.2 Allergy status to sulfonamides; Z79.4 Long term (current) use of insulin; Z79.84 Long term (current) use of oral hypoglycemic drugs; Z79.899 Other long term (current) drug therapy
CPT/HCPCS: 36415; 80048; 82947; 85027; 93005; 97162; C1713; J0131; J0690; J1170; J3010; L8699

== ENCOUNTER → 2023-01-16 14:10 | Outpatient (BNVA) | payer OTHER, SELFPAY | PROVIDERS: PCP Internal Medicine; Visit Provider Neurological Surgery | DX: Z98.1 Arthrodesis status (principal) | CPT/HCPCS: 99212 ==

== ENCOUNTER 2023-02-08 12:47 | Outpatient (REF) | payer OTHER, SELFPAY ==
--- NOTE | ~2023-02-08 | XR_ITS ---
EXAMINATION: XR LUMBOSACRAL SPINE WITH OBLIQUES CLINICAL INFORMATION: Spondylosis with radiculopathy lumbosacral region. COMPARISON: 10/08/2020 TECHNIQUE: AP, flexion and extension lateral views, lateral view of the lumbar spine. Lateral view of the lumbosacral junction. FINDINGS: Patient status post pedicle screw and samina fixation with interdisc spacer at the L4-L5 level. No acute fracture or spondylolisthesis identified. No instability on flexion-extension views identified. XR/XR lumbar spine 4V min IMPRESSION: 1. Status post pedicle screw and samina fixation L4-L5. 2. No acute fracture or spondylolisthesis identified.
== END 2023-02-08 12:48 | disposition home or self-care (01) ==
LOC: HO.HOSX 12:47
PROVIDERS: PCP Internal Medicine; Visit Provider Physician Assistant
DX: M47.27 Other spondylosis with radiculopathy, lumbosacral region (principal)
CPT/HCPCS: 72110; 99212

== ENCOUNTER 2023-03-20 14:06 | Outpatient (AMB) | payer OTHER, SELFPAY ==
--- NOTE | 2023-03-20 15:20 | HO.SPINEOV ---
Intake Intake Visit Reasons: 2 Month F/U Intake Note: Mr. Escobar is here today for his 2 month f/u. Allergies bee pollen [BEE STINGS] Allergy (Severe, Verified 12/25/22 09:26) SWELLING and facial swelling Sulfa (Sulfonamide Antibiotics) [SULFA (SULFONAMIDE ANTIBIOTICS)] Allergy (Severe, Verified 12/25/22 09:26) swelling, hives adhesive Adverse Reaction (Intermediate, Verified 12/25/22 09:26) Rash Assessment & Plan Assessment & Plan (1) Status post lumbar and lumbosacral fusion by anterior technique: Code(s): Z98.1 - Arthrodesis status Plan Mr Escobar is here for his 2 month follow-up from his L4-5 minimally invasive OLIF. He is doing wonderful, his back pain and leg pains remain gone. He is very concerned about restrictions and returning to full duty at work. He states he has been able to bend down and pick things up in use his full strength. He was informed that we cannot give him clearance to be lifting heavy objects off the ground in a twisting motion at this time. He was encouraged to continue light duty / restricted hours at work. We discussed activity guidelines, restrictions, expectations, and healing parameters after lumbar fusion. I gave him a updated return to work form, stating that he was seen today and that he needs to remain on light duty / restricted hours for the time being. May reassess when he is seen next month in clinic. Coding Level of Care Code Est Pt Level 4 (18417) Diagnoses Status post lumbar and lumbosacral fusion by anterior technique Z98.1
== END 2023-03-20 15:45 | disposition home or self-care (01) ==
PROVIDERS: PCP Internal Medicine; Visit Provider Physician Assistant
DX: Z98.1 Arthrodesis status (principal)
CPT/HCPCS: 99214

== ENCOUNTER → 2023-03-20 14:06 | Outpatient (BNVA) | payer OTHER, SELFPAY | PROVIDERS: PCP Internal Medicine; Visit Provider Physician Assistant | DX: Z98.1 Arthrodesis status (principal) | CPT/HCPCS: 99212 ==

== ENCOUNTER 2023-04-24 14:30 | Outpatient (AMB) | payer OTHER, SELFPAY ==
--- NOTE | 2023-04-24 15:00 | HO.SPINEOV ---
Intake Intake Visit Reasons: 1 month follow up Intake Note: Mr. Escobra is here today for his 1mo. f/u. [employer] Consult[employer] Required: Yes Allergies bee pollen [BEE STINGS] Allergy (Severe, Verified 12/25/22 09:26) SWELLING and facial swelling Sulfa (Sulfonamide Antibiotics) [SULFA (SULFONAMIDE ANTIBIOTICS)] Allergy (Severe, Verified 12/25/22 09:26) swelling, hives adhesive Adverse Reaction (Intermediate, Verified 12/25/22 09:26) Rash Assessment & Plan Assessment & Plan (1) Neurogenic claudication: Code(s): G95.19 - Other vascular myelopathies Plan The patient is a 62-year-old male comes in for continued follow-up after a L4-5 decompression and fusion performed in December of this year. For his 1st few months postoperatively the patient was strongly advocating for no restrictions at work. 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 Unfortunately the patient states that he attempted to over exert himself by lifting a heavy box and ?tweaked? his back, requiring that he miss a few days at work. He also began to feel like he was having some thigh weakness as a result of this injury. He states that with rest his symptoms resolved and he no longer has significant back pain. He is now requesting that we continue to extend his light duty/restricted hours. He was given an open-ended return to work note that states for the for see above future he will need to be on light duty/restricted hours until he is able to return to full strength. He was informed that for the time being he will be discharged the patient and that he may make a follow-up appointment if he would like to be re-evaluated and/or needs recommendations for full duty. Total amount of time spent in this visit was 20 minutes in discussion of symptoms, review of previous symptoms / postoperative healing progression, and subsequent plan of care. Pasquale Martinez MD,PhD [facility] Coding Level of Care Code Est Pt Level 3 (31691) Diagnoses Neurogenic claudication G95.19
== END 2023-04-24 15:53 | disposition home or self-care (01) ==
PROVIDERS: PCP Internal Medicine; Visit Provider Physician Assistant
DX: G95.19 Other vascular myelopathies (principal)
CPT/HCPCS: 99213

== ENCOUNTER → 2023-04-24 14:30 | Outpatient (BNVA) | payer OTHER, SELFPAY | PROVIDERS: PCP Internal Medicine; Visit Provider Physician Assistant | DX: G95.19 Other vascular myelopathies (principal) | CPT/HCPCS: 99212 ==

== ENCOUNTER 2023-05-22 10:44 | Emergency (ER) | payer OTHER, SELFPAY ==
--- NOTE | ~2023-05-22 | XR_ITS ---
EXAMINATION: XR CHEST CLINICAL INFORMATION: Cough. Shortness of breath. COMPARISON: None available. TECHNIQUE: 2 views of the chest were obtained. FINDINGS: The cardiac and mediastinal contours are normal. The lung volumes are low. The lungs are clear. No pleural effusion or pneumothorax. Bony structures are unremarkable. Nonspecific bowel gas pattern with air-filled distended loops of small and large bowel. XR/XR chest 2V IMPRESSION: Low lung volumes. No evidence for acute disease in the chest.
--- NOTE | 2023-05-22 10:57 | ED_ITS ---
HPI - URI/Sore Throat General Chief Complaint: Upper Respiratory Symptoms Stated Complaint: Cold symptoms 6 days Time Seen by Provider: 05/22/23 10:56 Source: patient, RN notes reviewed and old records reviewed Mode of arrival: ambulatory History of Present Illness HPI Narrative: 62-year-old male with a past medical history of chronic pain syndrome, renal calculi, HLD, HTN, diabetes, deaf, presenting to the ED complaining of myalgias, chills, productive cough, SOB/wheezing, chest discomfort when coughing, and lightheadedness x6 days. Admits called his PCP today and was told to come to the ED. Also reports diarrhea. 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 used MD elicited complaint: cough, sore throat, rhinorrhea and nasal congestion Related Data Home Medications Medication Instructions Recorded Confirmed blood sugar diagnostic #10 ea 10/29/20 05/31/22 cholecalciferol (vitamin D3) 25 25 mcg PO DAILY 10/29/20 12/05/22 mcg (1,000 unit) capsule coenzyme Q10 100 mg capsule 100 mg PO DAILY 10/29/20 12/05/22 (CoQ-10) glipizide 5 mg tablet 5 mg PO TIDWM 10/29/20 12/26/22 insulin glargine 100 unit/mL 55 unit subcut BEDTIME 10/29/20 05/31/22 subcutaneous solution insulin lispro 100 unit/mL 10 - 15 unit subcut TID PRN 10/29/20 12/05/22 subcutaneous pen Hyperglycemia insulin syringe-needle U-100 1 mL #10 ea 10/29/20 05/31/22 31 gauge x 01/02 loratadine 10 mg tablet 10 mg PO QAM 10/29/20 12/05/22 mecobalamin (vitamin B12) 1,000 1,000 mcg sublingual DAILY 10/29/20 12/05/22 mcg disintegrating tablet,sublingual pen needle, diabetic 31 gauge x #50 ea 10/29/20 05/31/22 3/ sitagliptin phosphate 100 mg tablet 100 mg PO DAILY 10/29/20 12/05/22 pitavastatin calcium 2 mg tablet 2 mg PO DAILY 03/30/22 12/05/22 (Livalo) acetaminophen 500 mg tablet 500 mg PO Q6H PRN Pain 12/05/22 12/05/22 aspirin 81 mg tablet,delayed 81 mg PO DAILY 12/05/22 12/05/22 release gabapentin 300 mg capsule 300 mg TID 12/05/22 12/05/22 tizanidine 4 mg tablet 4 mg PO Q6-8H PRN Pain 12/05/22 12/05/22 lisinopril 20 mg tablet 20 mg QAM 12/25/22 12/25/22 Previous Rx's Medication Instructions Recorded oxycodone 5 mg tablet 5 mg PO Q6H PRN pain 5 days #20 03/23/22 tabs Shower Chair #1 ea 12/26/22 cane #1 ea 12/26/22 oxycodone 5 mg tablet See Rx Instructions .Route 03/01/23 .COMPLEX PRN pain #20 tabs albuterol sulfate 90 mcg/actuation 2 puff inhalation Q4-6H PRN 05/22/23 aerosol inhaler shortness of breath or wheezing #6.7 grams benzonatate 100 mg capsule 100 mg PO TID PRN cough #14 caps 05/22/23 fluticasone propionate 50 2 spray intranasal DAILY #16 grams 05/22/23 mcg/actuation nasal spray,suspension (Flonase Allergy Relief) prednisone 20 mg tablet 40 mg (2 x 20 mg) PO DAILY 5 days 05/22/23 #10 tabs Allergies Allergy/AdvReac Type Severity Reaction Status Date / Time bee pollen [BEE STINGS] Allergy Severe SWELLING Verified 12/25/22 09:26 and facial swelling Sulfa (Sulfonamide Allergy Severe swelling, Verified 12/25/22 09:26 Antibiotics) hives [SULFA (SULFONAMIDE ANTIBIOTICS)] adhesive AdvReac Intermediate Rash Verified 12/25/22 09:26 Review of Systems 2 Review of Systems: Constitutional: No Fever, No Chills ENT/Mouth: No Ear Pain, + Nasal Congestion, No Sinus Pain, No Hoarseness, +sore throat, + Rhinorrhea, No Swallowing Difficulty Cardiovascular: + Chest Pain w/cough, + SOB Respiratory: + Cough, No Sputum, + Wheezing Gastrointestinal: No Nausea, No Vomiting, + Diarrhea, No Constipation, No Abdominal pain Genitourinary: No Dysuria, No Urinary Frequency, No Hematuria Musculoskeletal: No joint pain, + Myalgias, No Joint Swelling Skin: No Skin Lesions, No rash Neuro: No Weakness, No Numbness, No Paresthesias Yes all other systems are reviewed and are negative Constitutional: Constitutional: Reports as per [facility] Past Medical History Attestation statement: The following information was validated with the patient. Source: old records reviewed Medical History Chronic pain syndrome Personal history of COVID-19 Hx of renal calculi Elevated cholesterol HTN (hypertension) Seasonal allergies Deaf Diabetes Surgical History S/P placement of nerve stimulator Hx of cholecystectomy History of right inguinal hernia repair (~12/29/19) History of lithotripsy History of bilateral inguinal hernia repair Family History Family History Mother History of lung cancer Social History Social History Household Members: Spouse and Family Housing: Apartment Are you a primary geriatric care manager to a significant other at home: No Do you presently have visiting nurse or other home services: No Alcohol intake: current Alcohol intake frequency: holidays/special occasions only Patient Tobacco Use Status: Never used Tobacco Advance Directives: No Advance Directives Information Provided: No service: No Physical Exam 2 Vital Signs: Vital Signs: Last Vital Signs Temp 98.3 F 05/22/23 12:06 Pulse 75 05/22/23 12:59 Resp 20 05/22/23 12:59 BP 140/61 H 05/22/23 12:06 Pulse Ox 96 05/22/23 12:06 O2 Del Method Room Air 05/22/23 12:06 BMI result Body Mass Index 30.4 Const: General: cooperative, healthy appearing, no acute distress, alert and awake Orientation/consciousness: patient oriented x3 Limitations: no limitations HEENT: Head: Yes normal to inspection and Yes atraumatic Ears: hearing grossly normal bilaterally, external ears normal, TM's normal bilaterally and mastoids normal General nose exam: Normal external nose present Face and sinus: Yes normal facial exam Throat: Yes posterior oropharynx normal, Yes tonsils normal, Yes uvula midline, No peritonsillar mass, No uvula laterally displaced and No uvular edema Eyes: General: appearance normal, both eyes and all related structures EOM: EOMs intact bilaterally Neck: Neck: Yes normal visual inspection, Yes no meningeal signs and No anterior neck swelling Resp: Effort & Inspection: normal respiratory effort and no respiratory distress Auscultation: rhonchi throughout and wheezes expiratory wheezes and throughout Cardio: Rate: regular rate Heart sounds: S1 normal heart sound present and S2 normal heart sound present GI: Inspection: Yes normal to inspection Palpation (GI): Soft to palpation and nontender Skin: Rashes: no rashes Wounds: no wounds Neuro: General: patient oriented x3, gait normal, tone normal, moves all extremities, no meningeal signs, no focal motor deficits and CN's II-XI intact bilaterally Cranial nerves: Yes CN's II-XII intact bilaterally Gait exam (Neuro): Normal gait present Extrem: General: Yes normal to inspection Course Course Course Narrative: -1215--no leukocytosis. H/H slightly lower than baseline, but stable. BUN chronically elevated -COVID, flu, and rapid strep negative -troponin negative XR chest 2V IMPRESSION: Low lung volumes. No evidence for acute disease in the chest. -1219--on re-evaluation after DuoNeb patient with better air movement, still residual and extra Gilbert coarse lung sounds. Will give additional DuoNeb and p.o. prednisone -1318--on re-evaluation lungs CTA. >Results discussed with patient including worrisome signs and symptoms and strict return precautions, and when to return to the emergency department. They verbalized understanding and feel safe for discharge at this time. Medications Administered Discontinued Medications Generic Name Dose Route Start Last Admin Trade Name Mirna PRN Reason Stop Dose Admin Albuterol/Ipratropium 3 ml 05/22/23 11:37 05/22/23 11:48 Albuterol/Iprat 2.5/0.5mg 3 Ml Ampul.Neb INHALE 05/22/23 11:38 3 ml ONCE ONE Administration Albuterol/Ipratropium 3 ml 05/22/23 12:18 05/22/23 12:56 Albuterol/Iprat 2.5/0.5mg 3 Ml Ampul.Neb INHALE 05/22/23 12:19 3 ml ONCE ONE Administration Benzonatate 100 mg 05/22/23 12:18 05/22/23 12:54 Benzonatate 100 Mg Capsule PO 05/22/23 12:19 100 mg ONCE ONE Administration Prednisone 40 mg 05/22/23 12:18 05/22/23 12:54 Prednisone 20 Mg Tablet PO 05/22/23 12:19 40 mg ONCE ONE Administration Medical Decision Making Medical Decision Making MDM Narrative: 62-year-old male with a past medical history of chronic pain syndrome, renal calculi, HLD, HTN, diabetes, deaf, presenting to the ED complaining of myalgias, chills, productive cough, SOB/wheezing, chest discomfort when coughing, and lightheadedness x6 days. On exam vital signs stable, NAD, nontoxic appearing, lungs with coarse breath sounds/expiratory wheeze, abdomen soft/nontender, ambulating with steady gait. Concern for viral illness vs pneumonia or bronchitis. Rule out metabolic abnormalities. Low suspicion for ACS/PE/CHF or DVT. Unlikely appendicitis/diverticulitis or cholecystitis/lithiasis without tenderness on exam Plan: EKG, labs, CXR, viral testing, ED bronch protocol Please refer to course for remaining clinical decision making, interpretation of labs/imaging results, and discussions with consultants and/or family members. Differential Diagnosis Differential Diagnoses: The differential diagnosis associated with the presentation includes As above Lab Data MDM Lab Attestation statement: I reviewed the patient's lab results. 05/22/23 11:44 05/22/23 11:44 Labs: Lab Results 05/22/23 05/22/23 Range/Units 11:16 11:44 WBC 8.5 (4.8-10.8) X10*3/uL RBC 3.86 L (4.60-5.80) X10*6/uL Hgb 12.2 L (14.0-18.0) g/dl Hct 36.3 L (42.0-52.0) % MCV 94.0 (80.0-98.0) fL MCH 31.6 (27.0-33.0) pg MCHC 33.6 (31.0-36.0) g/dl RDW 12.3 (11.0-16.0) % Plt Count 193 (160-400) X10*3/uL MPV 9.7 (9.4-12.4) fL Immature Gran % (Auto) 0.6 H (0.0-0.4) % Neut % (Auto) 63.3 (45-73) % Lymph % (Auto) 18.5 L (20-40) % [place] % (Auto) 13.6 H (2-11) % Eos % (Auto) 3.4 (0-4) % Baso % (Auto) 0.6 (0-2) % Lymph # (Auto) 1.6 (1.2-4.9) X10*3/uL [place] # (Auto) 1.2 (0.1-1.2) X10*3/uL Eos # (Auto) 0.3 (0.0-0.4) X10*3/uL Baso # (Auto) 0.1 (0.0-0.2) X10*3/uL Abs Immat Gran (auto) 0.05 H (0.00-0.03) X10*3/uL Absolute Neuts (auto) 5.4 (2.0-8.3) x10*3/uL Absolute Nucleated RBC 0.000 (0.0-0.012) X10*3/uL Nucleated RBC % (auto) 0.0 (0.0-0.2) /100WBC Sodium 137 (135-145) mmol/L Potassium 4.6 (3.3-5.1) mmol/L Chloride 103 (96-108) mmol/L Carbon Dioxide 27 (22-29) mmol/L Anion Gap 12 (12-20) BUN 33 H (9-16) mg/dL Creatinine 1.33 (0.5-1.4) mg/dL Estim Creat Clear Calc 64.6 Estimated GFR 55 Random Glucose 220 H (60-115) mg/dL Calcium 9.5 (8.4-10.2) mg/dL Magnesium 2.2 (1.6-2.6) mg/dL Total Bilirubin 0.6 (0.0-1.0) mg/dL Direct Bilirubin 0.2 (0.0-0.5) mg/dL AST 37 (5-37) U/L ALT 61 H (0-40) U/L Alkaline Phosphatase 117 (39-117) U/L Troponin I High Sens 3.3 (<3.5-35.0) ng/L Total Protein 6.9 (6.5-8.0) g/dL Albumin 3.9 (3.5-5.0) g/dL COVID-19 (MENDY) Negative (Negative) COVID-19 Clin Com See Note Influenza Type A (DEX) Negative (Negative) Influenza Type B (DEX) Negative (Negative) Influenza A & B Note See Note S. pyogenes GrpA DEX Negative (Negative) Independent Interpretation I performed an independent interpretation of an: EKG (EKG normal sinus rhythm at a rate of 66. MO interval 166. QTC 375. No STEMI ) External Record Review External record reviewed: Inpatient record, Office record, Outpatient record, Prior outpatient labs, Prior outpatient radiology, Primary care record and Outside ED record Tests considered The following testing was considered but not selected: As above Critical Care Time Critical Care Time Critical Care Time: Yes Total Critical Care Time: 35 Attestation: I have personally provided critical care time exclusive of time spent on separately billable procedures. Time includes review of lab data, radiology results, discussion with consultants, and monitoring for potential decompensation. Intervention performed as documented. Discharge Plan Discharge Clinical Impression: Bronchitis Patient Disposition: Home, Self-Care Instructions: Acute Bronchitis (ED) Additional Instructions: Your blood work was unremarkable Your chest x-ray does not show pneumonia You tested negative for COVID and flu We are treating you for bronchitis, prednisone as an oral steroid, Tessalon Perles are for cough take as needed Use albuterol inhaler as needed for shortness of breath/wheezing Flonase is a nasal decongestant Have close follow-up with your doctor, if symptoms persist or worsen return to the emergency department Prescriptions: New benzonatate 100 mg capsule 100 mg PO TID PRN (Reason: cough) Qty: 14 0RF prednisone 20 mg tablet 40 mg PO DAILY 5 Days Qty: 10 0RF fluticasone propionate [Flonase Allergy Relief] 50 mcg/actuation spray,suspension 2 spray intranasal DAILY Qty: 16 0RF Rx Instructions: administer into each nostril albuterol sulfate 90 mcg/actuation HFA aerosol inhaler 2 puff inhalation Q4-6H PRN (Reason: shortness of breath or wheezing) Qty: 6.7 0RF No Action oxycodone 5 mg tablet See Rx Instructions .ROUTE .COMPLEX PRN (Reason: pain) Qty: 20 0RF Rx Instructions: 1-2 tabs po q8 hours prn pain Partial Fill upon patient request. gabapentin 300 mg capsule 300 mg TID tizanidine 4 mg tablet 4 mg PO Q6-8H PRN (Reason: Pain) aspirin 81 mg Tablet,Delayed Release (Dr/Ec) 81 mg PO DAILY acetaminophen 500 mg Tablet 500 mg PO Q6H PRN (Reason: Pain) lisinopril 20 mg tablet 20 mg QAM (DME) Shower Chair Misc See Rx Instructions .Route Qty: 1 0RF Rx Instructions: As directed (DME) cane Device See Rx Instructions .Route Qty: 1 0RF Rx Instructions: As directed insulin lispro 100 unit/mL insulin pen 10 - 15 unit subcut TID PRN (Reason: Hyperglycemia) loratadine 10 mg tablet 10 mg PO QAM glipizide 5 mg tablet 5 mg PO TIDWM Januvia 100 mg tablet 100 mg PO DAILY cholecalciferol (vitamin D3) 25 mcg (1,000 unit) capsule 25 mcg PO DAILY mecobalamin (vitamin B12) 1,000 mcg tablet,disintegrating 1,000 mcg sublingual DAILY Rx Instructions: place tablet under tongue and allow to dissolve for at least30 secs before swallowing coenzyme Q10 [CoQ-10] 100 mg capsule 100 mg PO DAILY (DME) pen needle, diabetic 31 gauge x 3/16 needle See Rx Instructions .ROUTE QID Qty: 50 Rx Instructions: As directed Lantus U-100 Insulin 100 unit/mL solution 55 unit subcut BEDTIME (DME) insulin syringe-needle U-100 1 mL 31 gauge x 5/16 syringe See Rx Instructions .ROUTE .MEDSUPPLY Qty: 10 Rx Instructions: As directed (DME) OneTouch Ultra Blue Test Strip Strip See Rx Instructions Not Applicable TID Qty: 10 Rx Instructions: As directed oxycodone 5 mg tablet 5 mg PO Q6H PRN (Reason: pain) 5 Days Qty: 20 0RF Rx Instructions: Partial Fill only upon patient request. Livalo 2 mg tablet 2 mg PO DAILY Referrals: Stan Fletcher MD [Primary Care Provider] - 3 days Stand Alone Forms: Work/School Release
--- NOTE | 2023-05-22 11:13 | ECG_ITS ---
Test Reason : CP Blood Pressure : / mmHG Vent. Rate : 066 BPM Atrial Rate : 066 BPM P-R Int : 166 ms QRS Dur : 078 ms QT Int : 358 ms P-R-T Axes : 006 -38 041 degrees QTc Int : 375 ms Normal sinus rhythm Left axis deviation Abnormal ECG When compared with ECG of 06-DEC-2022 12:36, No significant change was found Referred By: Flora Castillo Electronically Signed By:LUCILA CARDENAS
[2023-05-22 11:24] VITALS: O2SAT 99; BMI 30.4
--- OUTSIDE RECORDS SUMMARY | 2023-05-22 11:37 | XMS_ITS | Continuity of Care Document ---
Author Name Unknown Organization [facility] Address [address] [place] [address]- Care Team Providers Care Middle Card Tender Name Role Phone Justine COY, Stan Primary Care Physician [phone] Encounter [facility] Date(s): 02/02/21 - 03/04/21 [facility] [address] [place] [address]- Attending Physician: Damaris Hill Admitting Physician: AdmtrDamaris Referring Physician: Admtr ArSiria Allergies, Adverse Reactions, Alerts Substance Reaction Severity Status sulfADIAZINE Active Oranges Active Medications aspirin 81 mg oral tablet 1 tablet = 81 mg, By Mouth, Daily, 0 Refills, Maintenance, 02/16/19 20:20:52 EDT Start Date: 02/16/19 Status: Ordered gabapentin 300 mg oral capsule 300 mg, 1, capsule, By Mouth, 3 times a day, # 90 capsule, Refills 0, Maintenance, 01/24/21 2:14:00EDT, Partial fill upon patient request if the prescription is for a schedule II opioid drug. Start Date: 01/24/21 Status: Ordered glipiZIDE 5 mg oral tablet 5 mg, 1, tablet, By Mouth, 3 times a day, # 30 tablet, Refills 0, Maintenance, 01/24/21 2:15:00 EDT, Partial fill upon patient request if the prescription is for a schedule II opioid drug. Start Date: 01/24/21 Status: Ordered HumaLOG 100 units/mL injectable solution 10-20 units, Subcutaneous Injection, 2 times a day with meals, # 10 mL, 0 Refills, Maintenance, 02/16/19 20:20:03 EDT, Solution Start Date: 02/16/19 Status: Ordered Januvia 100 mg oral tablet 1 tablet = 100 mg, By Mouth, Daily, # 30 tablet, 0 Refills, Maintenance, 01/24/21 2:14:00 EDT, Tablet, Partial fill upon patient request if the prescription is for a schedule II opioid drug. Start Date: 01/24/21 Status: Ordered Lantus Inj = 50 units, Subcutaneous Infusion, Daily at bedtime, 0 Refills, Maintenance, 02/16/19 20:21:28 EDT Start Date: 02/16/19 Status: Ordered lisinopril 10 mg oral tablet 10 mg, 1, tablet, By Mouth, Daily, Refills 0, Maintenance, 02/16/19 20:21:18 EDT Start Date: 02/16/19 Status: Ordered Livalo 2 mg oral tablet 1 tablet = 2 mg, By Mouth, Daily, # 30 tablet, 0 Refills, Maintenance, 01/24/21 2:14:00 EDT, Tablet, Partial fill upon patient request if the prescription is for a schedule II opioid drug. Start Date: 01/24/21 Status: Ordered loratadine 10 mg oral tablet 10 mg, 1, tablet, By Mouth, Daily, # 30 tablet, Refills 0, Maintenance, 01/24/21 2:14:00 EDT, Partial fill upon patient request if the prescription is for a schedule II opioid drug. Start Date: 01/24/21 Status: Ordered tiZANidine 4 mg oral tablet 4 mg, 1, tablet, By Mouth, Every 8 hours, PRN, # 90 tablet, Refills 0, Maintenance, Spasm, 212:15:00 EDT, Partial fill upon patient request if the prescription is for a schedule II opioid drug. Start Date: 01/24/21 Status: Ordered Problem List Condition Effective Dates Status Health Status Inform ant Chronic kidney disease, stag e 3(Confirmed) Active Hyperlipidemia(Confirmed) Active Nephrolithiasis(Confirmed) Active Type 2 diabetes mellitus(Confirmed) Active Social History Social History Type Response Smoking Status Never (less than 100 in lifetime) entered on: 02/16/19 Sex
--- OUTSIDE RECORDS SUMMARY | 2023-05-22 11:37 | XMS_ITS | Continuity of Care Document ---
Author Name Unknown Organization [facility] ter Address [address] [place] [id number]- Care Team Providers Care Die Equipment Operator Name Role Phone Justine COY, Stan Primary Care Physician Encounter [facility] R [id number] Date(s): 12/12/22 - 01/17/[address] [address] Attending Physician: Stan Fletcehr MD Admitting Physician: Stan Fletcher MD Referring Physician: Stan Fletcher MD Allergies, Adverse Reactions, Alerts Substance Reaction Severity [...] Date: 01/24/21 Status: Ordered Problem List Condition Confirmation Course Effective Dates Status H ealt Status Informant Chronic kidney disease, stage 3 Confirmed Active Hyperlipidemia Confirmed Active Nephrolithiasis Confirmed Active Type 2 diabetes mellitus Confirmed Active Social History Social History Type Response Smoking Status Never (less than 100 in lifetime) entered on: 02/16/19 Sex Patient Care team information Care Team Personnel Name: Stan Fletcher MD Position: [facility] Outreach Member Role: PCP Address: Address: [address] [place] [id number]- Care Team Related Persons Name: GREG CONWAY Address: home [address] [place] [address]
--- OUTSIDE RECORDS SUMMARY | 2023-05-22 11:37 | XMS_ITS | Continuity of Care Document ---
Author Name Unknown Organization [facility] Address [address] [place] [address]- Care Team Providers Care Writing Manager Name Role Phone Justine COY, Stan Primary Care Physician [phone] Encounter [facility] Date(s): 01/24/21 - 01/26/[address] [address]- Discharge Disposition: A-D/C Home Attending Physician: Cristhian Giron DO Admitting Physician: Arnoldo Almendarez DO Referring Physician: Jordan Reese MD Allergies, Adverse Reactions, Alerts Substance Reaction Severity Status sulfADIAZINE Active Oranges Active Medications acetaminophen 500 mg oral capsule 2 capsule = 1,000 mg, By Mouth, 4 times a day, PRN Pain , Moderate, for 3 days, # 100 capsule, 0 Refills, Acute 01/29/21 14:00:00 EDT, 01/26/21 14:00:00 EDT, Capsule, Partial fill upon patient request if the prescription is for a schedule II opioid drug. Start Date: 01/26/21 Stop Date: 01/29/21 Status: Ordered aspirin 81 mg oral tablet 1 tablet [...] opioid drug. Start Date: 01/24/21 Status: Ordered gabapentin 300 mg oral capsule 300 mg, Capsule, By Mouth, 01/26/21 15:00:00 EDT Start Date: 01/26/21 Stop Date: 01/26/21 Status: Completed gabapentin 300 mg oral capsule 300 mg, Capsule, By Mouth, 01/26/21 9:00:00 EDT Start Date: 01/26/21 Stop Date: 01/26/21 Status: Completed glipiZIDE 5 mg oral tablet 5 mg, [...] opioid drug. Start Date: 01/24/21 Status: Ordered Tylenol 325 mg oral tablet 975 mg, Tablet, By Mouth, 01/26/21 9:00:00 EDT Start Date: 01/26/21 Stop Date: 01/26/21 Status: Completed Problem List Condition Effective Dates Status Health Status Inform ant Chronic kidney disease, stag e 3(Confirmed) Active Hyperlipidemia(Confirmed) Active Nephrolithiasis(Confirmed) Active Type 2 diabetes mellitus(Confirmed) Active Procedures Procedure Date Related Diagnosis Body Site Status Laparoscopic cholecystectomy 01/24/21 Completed Bilateral inguinal hernia repair Completed Results Radiology Reports * Exam Date Time Procedure Performing Provider Status 01/23/21 9:14 PM Chest 2 Views Frontal and Lat Jean , Th uthao T; Auth (Verified) Notes: (Chest 2 Views Frontal and Lat) Reason For Exam: Abdominal Pain RESULT: Chest 2 Views Frontal and Lat Chest 2 Views Frontal and Lat Hx of Present Illness: Pt c/o epigastric pain starting at 430 PM this evening. Pt describes as squeezing starting after eating a meal. Pt also reports nausea without vomiting. Pt is hearing impaired and speak ASL, stratus was very helpful; Reason: Abdominal Pain; Clinical Question(s): Abd Free Air COMPARISON: None. FINDINGS: LINES AND TUBES: None. LUNGS AND PLEURA: Low lung volumes with mild basilar atelectasis. Lungs are otherwise clear with no consolidation. No pleural effusion. No pneumothorax. HEART, MEDIASTINUM AND LAINA: Heart is normal in size. Normal upper mediastinal and hilar contour. BONES AND SOFT TISSUES: No acute abnormality. No pneumoperitoneum. IMPRESSION: Low lung volume with mild bibasilar atelectasis. No pneumoperitoneum. WSN: [id number] Ordering Physician: Jordan Reese Dictated By: Sammy Sánchez DO Dictated Date/Time: 01/23/21 9:17 pm Reviewed By: Sammy Sánchez DO Signed By: Sammy Sánchez DO Signed Date/Time: 01/23/21 9:17 pm Transcribed By: ABBY Transcribed Date/Time: 01/23/21 9:15 pm Vital Signs Most recent to oldest [Reference Range]: 1 2 3 Height 176 cm (01/26/21 5:04 AM) 176 cm (01/25/21 9:28 PM) 176 cm (01/25/21 2:00 PM) Weight 90.6 kg (01/24/21 1:23 PM) 90.6 kg (01/24/21 4:00 AM) 90 kg (01/24/21 3:24 AM) Oxygen Saturation [94-100 %] 97 % (01/26/21 5:04 AM) 96 % (01/25/21 9:28 PM) 100 % (01/25/21 2:00 PM) Pulse Rate [55-90 bpm] 57 bpm (01/26/21 5:04 AM) 65 bpm (01/25/21 9:28 PM) 61 bpm (01/25/21 2:00 PM) Body Mass Index [18.5-24.99] 29.25 *H* (01/24/21 1:23 PM) 29.05 *H* (01/24/21 3:24 AM) 29.05 *H* (01/24/21 2:03 AM) Blood Pressure [90-138/55-84 mm Hg] 138/74mm Hg (01/26/21 5:04 AM) 128/69mm Hg (01/25/21 9:28 PM) 120/78mm Hg (01/25/21 2:00 PM) Respiratory Rate [16-30 br/min] 16 br/min (01/26/21 3:20 PM) 15 br/min *L* (01/26/21 9:39 AM) 15 br/min *L* (01/26/21 9:39 AM) Temperature [96.8-100.4 DegF] 97.2 DegF (01/26/21 5:04 AM) 97.4 DegF (01/25/21 9:28 PM) 97.9 DegF (01/25/21 2:00 PM) Liters per Minute 2.5 L/min (01/24/21 3:56 PM) Mode of Delivery (Oxygen) Room air (01/26/21 5:04 AM) Room air (01/25/21 9:28 PM) Room air (01/25/21 2:00 PM) Blood pressure sites Arm, left (01/26/21 5:04 AM) Arm, right (01/25/21 2:00 PM) Arm, left (01/25/21 5:00 AM) Temperature Route Oral (01/26/21 5:04 AM) Temporal (01/25/21 9:28 PM) Oral (01/25/21 2:00 PM) Dry Weight 90 kg (01/24/21 3:24 AM) 90 kg (01/24/21 2:03 AM) 90 kg (01/23/21 10:24 PM) Weight Obtained Via Standing scale (01/24/21 4:00 AM) Patient/family stated (01/23/21 6:54 PM) Dry Weight Obtained Via Patient/family s tated (01/23/21 6:54 PM) Social History Social History Type Response Smoking Status Never (less than 100 in lifetime) entered on: 02/16/19 Sex
--- OUTSIDE RECORDS SUMMARY | 2023-05-22 11:37 | XMS_ITS | Continuity of Care Document ---
Author Name Unknown Organization [facility] Address [address] [place] [address]- Care Team Providers Care Easement Worker Name Role Phone Justine COY, Stan Primary Care Physician Encounter [facility] Date(s): 01/31/22 - 01/31/[address] [address]- Discharge Disposition: A-D/C Home Attending Physician: Damir Jaeger MD Admitting Physician: Damir Jaeger MD Referring Physician: Not on Staff, Referring MD Allergies, Adverse Reactions, Alerts Substance Reaction [...] opioid drug. Start Date: 01/24/21 Status: Ordered ofloxacin 0.3% ophthalmic solution See Instructions, 1 drop left eye 4 times daily for the next 5 days, # 5 mL, 0 Refills, Acute 02/05/22 19:08:00 EDT, 01/31/22 19:08:00 EDT, Solution, Partial fill upon patient request if the prescription is for a schedule II opioid drug. Start Date: 01/31/22 Stop Date: 02/05/22 Status: Ordered tiZANidine 4 mg oral tablet 4 mg, 1, tablet, By Mouth, Every 8 hours, PRN, # 90 tablet, Refills 0, Maintenance, Spasm, :15:00 EDT, Partial fill upon patient request if the prescription is for a schedule II opioid drug. Start Date: 01/24/21 Status: Ordered Problem List Condition Effective Dates Status Health Status Inform ant Chronic kidney disease, stag e 3(Confirmed) Active Hyperlipidemia(Confirmed) Active Nephrolithiasis(Confirmed) Active Type 2 diabetes mellitus(Confirmed) Active Vital Signs Most recent to oldest [Reference Range]: 1 Height 173 cm (01/31/22 4:29 PM) Weight 90.1 kg (01/31/22 4:29 PM) Oxygen Saturation [94-100 %] 94 % (01/31/22 4:29 PM) Pulse Rate [55-90 bpm] 93 bpm *H* (01/31/22 4:29 PM) Blood Pressure [90-138/55-84 mm Hg] 160/ 72mm Hg *H* (01/31/22 4:29 PM) Respiratory Rate [16-30 br/min] 20 br/mi n (01/31/22 4:29 PM) Temperature [96.8-100.4 DegF] 97.3 DegF (01/31/22 4:29 PM) Mode of Delivery (Oxygen) Room air (01/31/22 4:29 PM) Blood pressure sites Arm, right (01/31/22 4:29 PM) Temperature Route Temporal (01/31/22 4:29 PM) Dry Weight 90.1 kg (01/31/22 4:29 PM) Social History Social History Type Response Smoking Status Never (less than 100 in lifetime) entered on: 02/16/19 Sex
[2023-05-22 11:48] LABS: MANUAL DIFF FLAG NO
[2023-05-22] MEDS: Albuterol/Iprat 2.5/0.5MG 3 ML AMPUL.NEB INHALE ×2 (11:48→12:56)
[2023-05-22 11:49] VITALS: PULSE 83; RESP 20; O2SAT 99
[2023-05-22 11:50] LABS: Basophils Absolute Auto 0.1 X10*3/uL (0.0-0.2); Basophils Percent Auto 0.6 % (0-2); Eosinophils Absolute Auto 0.3 X10*3/uL (0.0-0.4); Eosinophils Percent Auto 3.4 % (0-4); Hematocrit 36.3 % (42.0-52.0); Hemoglobin 12.2 g/dl (14.0-18.0); Imm Gran Abs Auto 0.05 X10*3/uL (0.00-0.03); Imm Gran Pct Auto 0.6 % (0.0-0.4); Lymphocytes Absolute Auto 1.6 X10*3/uL (1.2-4.9); Lymphocytes Percent Auto 18.5 % (20-40); Mean Corpuscular HGB Conc 33.6 g/dl (31.0-36.0); Mean Corpuscular Hemoglobin 31.6 pg (27.0-33.0); Mean Platelet Volume 9.7 fL (9.4-12.4); Monocytes Absolute Auto 1.2 X10*3/uL (0.1-1.2); Monocytes Percent Auto 13.6 % (2-11); Neutrophils Absolute Auto 5.4 x10*3/uL (2.0-8.3); Neutrophils Percent Auto 63.3 % (45-73); Platelet Count 193 X10*3/uL (160-400); Red Blood Count 3.86 X10*6/uL (4.60-5.80); Red Cell Distribution Width 12.3 % (11.0-16.0); White Blood Count 8.5 X10*3/uL (4.8-10.8)
[2023-05-22 11:54] LABS: IDNOW Serial# 08D9AD1C; Strep A Nucleic Acid Negative (Negative)
[2023-05-22 12:06] VITALS: BP 140/61; PULSE 77; RESP 17; TEMP 36.8; O2SAT 96
[2023-05-22 12:06] LABS: COVID-19 Test Negative (Negative); IDNOW Serial# 9DB6401D
[2023-05-22 12:07] LABS: IDNOW Serial# BCCEAD1C; Influenza A Negative (Negative); Influenza B2 Negative (Negative)
[2023-05-22 12:08] LABS: Alanine Aminotransferase 61 U/L (0-40); Albumin Level 3.9 g/dL (3.5-5.0); Alkaline Phosphatase 117 U/L (39-117); Anion Gap 12 (12-20); Aspartate Amino Transferase 37 U/L (5-37); Bilirubin Direct 0.2 mg/dL (0.0-0.5); Bilirubin Total 0.6 mg/dL (0.0-1.0); Blood Urea Nitrogen 33 mg/dL (9-16); Calcium 9.5 mg/dL (8.4-10.2); Carbon Dioxide 27 mmol/L (22-29); Chloride 103 mmol/L (96-108); Creatinine Clr Calc Pharmacy 64.6; Estimated Glomerular Filt Rate 55; Glucose Random 220 mg/dL (60-115); Magnesium 2.2 mg/dL (1.6-2.6); Potassium 4.6 mmol/L (3.3-5.1); Sodium 137 mmol/L (135-145); Total Protein 6.9 g/dL (6.5-8.0)
[2023-05-22 12:49] LABS: Troponin-I High Sensitivity 3.3 ng/L (<3.5-35.0)
[2023-05-22] MEDS: Benzonatate 100 MG CAPSULE PO (12:54)
[2023-05-22] MEDS: predniSONE 20 MG TABLET 40 MG PO (12:54)
[2023-05-22 12:59] VITALS: PULSE 75; RESP 20; O2SAT 98
[2023-05-22 13:24] VITALS: BP 153/69; PULSE 98; RESP 18; TEMP 36.1; O2SAT 95
== END 2023-05-22 14:46 | disposition home or self-care (01) ==
PROVIDERS: Physician Assistant; Emergency Provider Emergency Medicine; PCP Internal Medicine
DX: J40 Bronchitis, not specified as acute or chronic (principal); Z11.52 Encounter for screening for COVID-19; E11.9 Type 2 diabetes mellitus without complications; I10 Essential (primary) hypertension; Z79.82 Long term (current) use of aspirin
CPT/HCPCS: 36415; 71046; 80048; 80076; 83735; 84484; 85025; 87502; 87635; 87651; 93005; 94640; 99284

== ENCOUNTER 2023-05-29 15:15 | Outpatient (REF) | payer OTHER, SELFPAY ==
--- NOTE | ~2023-05-29 | XR_ITS ---
EXAMINATION: XR CHEST CLINICAL INFORMATION: Acute cough COMPARISON: 05/22/2023 TECHNIQUE: 2 views of the chest were obtained. FINDINGS: There is low lung volume bilaterally with atelectasis in the left lung base and no evidence of pneumonia or vascular congestion. Cardiomediastinal silhouette is unremarkable. Osseous structures are normal. XR/XR chest 2V IMPRESSION: Left lower lobe atelectasis
== END 2023-05-29 15:16 | disposition home or self-care (01) ==
LOC: HO.XRAY 15:15
PROVIDERS: Absent Provider Internal Medicine; PCP Internal Medicine; Visit Provider Family Medicine
DX: R05.1 Acute cough (principal)
CPT/HCPCS: 71046

== ENCOUNTER 2023-06-26 10:34 | Emergency (ER) | payer OTHER, SELFPAY ==
--- NOTE | ~2023-06-26 | XR_ITS ---
EXAMINATION: XR CHEST 2 VIEW CLINICAL INFORMATION: Chest COMPARISON: 05/29/2023 TECHNIQUE: PA and lateral views of the chest obtained. FINDINGS: Opacity abutting the left heart border is again evident, and could reflect either a prominent epicardial fat pad or focal atelectasis. The right lung is clear. There are no pleural effusions. The cardiomediastinal silhouette is stable. The lungs are clear. There are no pleural effusions. The cardiomediastinal silhouette is normal. XR/XR chest 2V IMPRESSION: No acute disease or interval change since 05/29/2023.
--- NOTE | ~2023-06-26 | XR_ITS ---
EXAMINATION: XR SHOULDER, LEFT CLINICAL INFORMATION: Left shoulder pain. COMPARISON: None available. TECHNIQUE: AP external rotation, Grashey, scapular Y views of the left shoulder. FINDINGS: There are acromioclavicular hypertrophic changes. No fracture, dislocation or bone lesion is evident. The glenohumeral joint is maintained. XR/XR shoulder LT min 2V IMPRESSION: Acromioclavicular hypertrophic changes. Otherwise unremarkable plain radiographs of the left shoulder.
[2023-06-26 11:29] VITALS: BP 128/71; PULSE 67; RESP 18; TEMP 36.3; O2SAT 96; BMI 31.6
--- NOTE | 2023-06-26 11:30 | ED_ITS ---
HPI - General Adult General Chief complaint: Extremity Injury, Upper Stated complaint: L shoulder pain Time Seen by Provider: 06/26/23 12:21 Source: patient Mode of arrival: ambulatory Limitations: language barrier (patient speaks ASL) History of Present Illness HPI narrative: Patient is a 62 year old assigned male at with a history of DM presenting to the emergency department today with left shoulder pain. Patient states that for the last 2 weeks he has had left shoulder pain that radiates into his left hand. Patient states that the pain is worse with movement. Patient denies any dizziness, lightheadedness, abdominal pain, nausea, vomiting, fever, chills, blurry vision, double vision, loss of vision, chest pain, difficulty breathing, shortness of breath, back pain, night sweats, pain with urination, increased urinary frequency, increased urinary urgency, blood in his urine or stool, syncope or a near syncopal episode, recent trauma or falls, bowel incontinence, bladder incontinence, bowel retention, bladder retention, or any other complaints at this time. Onset (ago): week(s) (2) Location: left and upper extremity Severity: mild Severity scale (1-10): 3 Quality: aching and dull Pain Consistency: constant Relieving factors: none Exacerbating factors: movement Associated symptoms: denies other symptoms Treatments prior to arrival: other (tylenol) Related Data Home Medications Medication Instructions Recorded Confirmed blood sugar diagnostic #10 ea 10/29/20 05/31/22 cholecalciferol (vitamin D3) 25 25 mcg PO DAILY 10/29/20 12/05/22 mcg (1,000 unit) capsule coenzyme Q10 100 mg capsule 100 mg PO DAILY 10/29/20 12/05/22 (CoQ-10) glipizide 5 mg tablet 5 mg PO TIDWM 10/29/20 12/26/22 insulin glargine 100 unit/mL 55 unit subcut BEDTIME 10/29/20 05/31/22 subcutaneous solution insulin lispro 100 unit/mL 10 - 15 unit subcut TID PRN 10/29/20 12/05/22 subcutaneous pen Hyperglycemia insulin syringe-needle U-100 1 mL #10 ea 10/29/20 05/31/22 31 gauge x 5/16 loratadine 10 mg tablet 10 mg PO QAM 10/29/20 12/05/22 mecobalamin (vitamin B12) 1,000 1,000 mcg sublingual DAILY 10/29/20 12/05/22 mcg disintegrating tablet,sublingual pen needle, diabetic 31 gauge x #50 ea 10/29/20 05/31/2211/02 sitagliptin phosphate 100 mg tablet 100 mg PO DAILY 10/29/20 12/05/22 pitavastatin calcium 2 mg tablet 2 mg PO DAILY 03/30/22 12/05/22 (Livalo) acetaminophen 500 mg tablet 500 mg PO Q6H PRN Pain 12/05/22 12/05/22 aspirin 81 mg tablet,delayed 81 mg PO DAILY 12/05/22 12/05/22 release gabapentin 300 mg capsule 300 mg TID 12/05/22 12/05/22 tizanidine 4 mg tablet 4 mg PO Q6-8H PRN Pain 12/05/22 12/05/22 lisinopril 20 mg tablet 20 mg QAM 12/25/22 12/25/22 Previous Rx's Medication Instructions Recorded oxycodone 5 mg tablet 5 mg PO Q6H PRN pain 5 days #20 03/23/22 tabs Shower Chair #1 ea 12/26/22 cane #1 ea 12/26/22 oxycodone 5 mg tablet See Rx Instructions .Route 03/01/23 .COMPLEX PRN pain #20 tabs albuterol sulfate 90 mcg/actuation 2 puff inhalation Q4-6H PRN 05/22/23 aerosol inhaler shortness of breath or wheezing #6.7 grams benzonatate 100 mg capsule 100 mg PO TID PRN cough #14 caps 05/22/23 fluticasone propionate 50 2 spray intranasal DAILY #16 grams 05/22/23 mcg/actuation nasal spray,suspension (Flonase Allergy Relief) prednisone 20 mg tablet 40 mg (2 x 20 mg) PO DAILY 5 days 05/22/23 #10 tabs prednisone 20 mg tablet 20 mg PO DAILY 7 days #7 tabs 06/26/23 Allergies Allergy/AdvReac Type Severity Reaction Status Date / Time bee pollen [BEE STINGS] Allergy Severe SWELLING Verified 06/26/23 11:36 and facial swelling Sulfa (Sulfonamide Allergy Severe swelling, Verified 06/26/23 11:36 Antibiotics) hives [SULFA (SULFONAMIDE ANTIBIOTICS)] adhesive AdvReac Intermediate Rash Verified 06/26/23 11:36 Review of Systems 2 Constitutional: Constitutional: Reports no additional constitutional complaints, Denies chills, Denies fever(s) and Denies night sweats Eyes: Eyes: Reports no additional eye complaints, Denies blurry vision, Denies change in vision, Denies diplopia, Denies eye discharge, Denies loss of vision and Denies eye pain ENT: Denies dizziness Cardiovascular: Cardiovascular: Reports no additional cardiovascular complaints, Denies chest pain, Denies lightheadedness, Denies Loss of Consciousness and Denies dyspnea Respiratory: Respiratory: Reports no additional respiratory complaints and Denies dyspnea Gastrointestinal: Gastrointestinal: Reports no additional gastrointestinal complaints, Denies abdominal pain, Denies melena, Denies hematochezia, Denies change in bowel habits and Denies change in stool character Genitourinary: Genitourinary: Reports no additional male genitourinary complaints, Denies hematuria, Denies oliguria, Denies difficulty urinating, Denies dysuria, Denies urinary frequency, Denies urinary hesitancy, Denies urinary incontinence and Denies urinary urgency Musculoskeletal: Musculoskeletal: Reports no additional musculoskeletal complaints, Denies numbness and Denies tingling Comments: left shoulder pain Neurologic: Denies dizziness, Denies loss of vision, Denies numbness and Denies tingling Psychiatric: Psychiatric: Reports no additional psychiatric complaints Endocrine: Endocrine: Reports no additional endocrine complaints Hematologic/Lymphatic: Hematologic/Lymphatic: Reports no additional hematologic/lymphatic complaints Allergic/Immunologic: Allergic/Immunologic: Reports no additional allergic/immunologic complaints [facility] Past Medical History Attestation statement: The following information was validated with the patient. Source: old records reviewed and nursing notes reviewed Medical History Chronic pain syndrome Personal history of COVID-19 Hx of renal calculi Elevated cholesterol HTN (hypertension) Seasonal allergies Deaf Diabetes Surgical History S/P placement of nerve stimulator Hx of cholecystectomy History of right inguinal hernia repair (~12/29/19) History of lithotripsy History of bilateral inguinal hernia repair Family History Family History Mother History of lung cancer Social History Social History Household Members: Spouse and Family Housing: Apartment Are you a primary direct support professional caregiver to a significant other at home: No Do you presently have visiting nurse or other home services: No Alcohol intake: current Alcohol intake frequency: holidays/special occasions only Patient Tobacco Use Status: Never used Tobacco Advance Directives: No Advance Directives Information Provided: Yes service: No Physical Exam ED Vital Signs: Vital Signs - 24 hr 06/26/23 11:29 Temperature 97.3 F Pulse Rate 67 Respiratory Rate 18 Blood Pressure 128/71 Pulse Oximetry 96 Oxygen Delivery Method Room Air BMI result Body Mass Index 31.6 Const General: cooperative, no acute distress, alert and awake Nutritional Appearance: well nourished Orientation/consciousness: patient oriented x3 Limitations: no limitations HENMT Head: Yes normal to inspection and Yes atraumatic Ears: external ears normal General nose exam: Normal external nose present, no nasal discharge noted and no epistaxis Face and sinus: Yes normal facial exam, No abrasion and No laceration Mouth: Normal oral and palatal mucosa present and no drooling Eyes General: appearance normal, both eyes and all related structures Periorbital: periorbital findings normal Eyelids: Yes eyelids normal Conjunctivae: conjunctivae normal Pupils: Equal, round and reactive pupils present EOM: EOMs intact bilaterally Neck Neck: Yes normal visual inspection, Yes full ROM and Yes no lymphadenopathy Chest Chest palpation & inspection: normal inspection of the chest Resp Effort & Inspection: normal respiratory effort and able to speak in complete sentences GI Inspection: Yes normal to inspection Neuro General: patient oriented x3 and moves all extremities Cranial nerves: Yes Equal, round and reactive pupils present Cognition (Neuro): normal cognition Motor exam (neuro): 5/5 motor strength present throughout Sensory Exam: Normal double simultaneous stimulation for sensation Coordination: [id number] test normal Extrem Other: pain with ROM of the left upper extremity General: Yes normal to inspection, Yes full ROM and Yes capillary refill normal Psych Appearance: grossly normal Mental Status: mental status grossly normal Affect: normal affect Attitude: cooperative Thought process: Normal thought process present Thought content: Normal thought content present Insight: Good insight present (Psych) Course Course Course Narrative: RME performed by Nyasia Hernandez PA-C. Patient is a 62 year old assigned male at presenting to the emergency department with left shoulder pain. Labs, imaging,and EKG ordered. Patient placed back in the waiting room pending room availability and results. Medical Decision Making Medical Decision Making [facility] Narrative: Patient is a 62 year old assigned male at with a history of DM presenting to the emergency department today with left shoulder pain. Patient's physical exam showed pain with left shoulder ROM. Patient's blood work was unremarkable. Patient's EKG was unremarkable. Patient's chest and shoulder x-ray showed no acute process. I explained my physical exam findings as well as all test results to the patient and the patient's fiance. I answered all questions asked by the patient and the patient's fiance. I stressed the importance of the patient taking his medication as prescribed. I stressed the importance of the patient following up with his primary care provider and an orthopedic provider. I stressed the importance of the patient returning to the emergency department immediately if his symptoms were to worsen or if he were to develop any dizziness, shortness of breath, difficulty breathing, chest pain, blurry vision, loss of vision, nausea, vomiting, abdominal pain, fever, chills, back pain, or any other complaints. Patient verbalized agreement and understanding with this treatment plan and discharge. Differential Diagnosis Differential Diagnoses: The differential diagnosis associated with the presentation includes Shoulder pain NSTEMI STEMI Rotator cuff injury Admission/Observation Consideration of admission/observation: Escalation of care including admission/observation considered Patient would have been admitted to the hospital had his work up had any findings where hospital admission was appropriate and his clinical presentation warranted hospital admission. Lab Data [facility] Lab Attestation statement: I reviewed the patient's lab results. My interpretation of these studies and their corresponding values is that they are grossly normal. 06/26/23 11:45 06/26/23 11:45 Labs: Lab Results 06/26/23 Range/Units 11:45 WBC 4.9 (4.8-10.8) X10*3/uL RBC 4.22 L (4.60-5.80) X10*6/uL Hgb 13.6 L (14.0-18.0) g/dl Hct 39.0 L (42.0-52.0) % MCV 92.4 (80.0-98.0) fL MCH 32.2 (27.0-33.0) pg MCHC 34.9 (31.0-36.0) g/dl RDW 12.6 (11.0-16.0) % Plt Count 149 L (160-400) X10*3/uL MPV 9.6 (9.4-12.4) fL Immature Gran % (Auto) 0.2 (0.0-0.4) % Neut % (Auto) 39.9 L (45-73) % Lymph % (Auto) 34.2 (20-40) % [place] % (Auto) 9.6 (2-11) % Eos % (Auto) 15.1 H (0-4) % Baso % (Auto) 1.0 (0-2) % Lymph # (Auto) 1.7 (1.2-4.9) X10*3/uL [place] # (Auto) 0.5 (0.1-1.2) X10*3/uL Eos # (Auto) 0.7 H (0.0-0.4) X10*3/uL Baso # (Auto) 0.1 (0.0-0.2) X10*3/uL Abs Immat Gran (auto) 0.01 (0.00-0.03) X10*3/uL Absolute Neuts (auto) 2.0 (2.0-8.3) x10*3/uL Absolute Nucleated RBC 0.000 (0.0-0.012) X10*3/uL Nucleated RBC % (auto) 0.0 (0.0-0.2) /100WBC Sodium 139 (135-145) mmol/L Potassium 4.6 (3.3-5.1) mmol/L Chloride 106 (96-108) mmol/L Carbon Dioxide 25 (22-29) mmol/L Anion Gap 13 (12-20) BUN 24 H (9-16) mg/dL Creatinine 1.21 (0.5-1.4) mg/dL Estim Creat Clear Calc 72.3 Estimated GFR > 60 Random Glucose 287 H (60-115) mg/dL Calcium 9.4 (8.4-10.2) mg/dL Magnesium 1.7 (1.6-2.6) mg/dL Total Bilirubin 0.6 (0.0-1.0) mg/dL AST 19 (5-37) U/L ALT 23 (0-40) U/L Alkaline Phosphatase 67 (39-117) U/L Troponin I High Sens < 2.7 (<3.5-35.0) ng/L Total Protein 6.8 (6.5-8.0) g/dL Albumin 4.0 (3.5-5.0) g/dL Independent Interpretation I performed an independent interpretation of an: EKG and Plain X-Ray Interpretation: My interpretation is in agreement with the radiologist's impression of this imaging study. - EXAMINATION: XR SHOULDER, LEFT CLINICAL INFORMATION: Left shoulder pain. COMPARISON: None available. TECHNIQUE: AP external rotation, Grashey, scapular Y views of the left shoulder. FINDINGS: There are acromioclavicular hypertrophic changes. No fracture, dislocation or bone lesion is evident. The glenohumeral joint is maintained. XR/XR shoulder LT min 2V IMPRESSION: Acromioclavicular hypertrophic changes. Otherwise unremarkable plain radiographs of the left shoulder. Dictated By: rBad Gillis MD Signed By: Electronically signed by Brad Gillis MD 06/26/23 1256 - EXAMINATION: XR CHEST 2 VIEW CLINICAL INFORMATION: Chest COMPARISON: 05/29/2023 TECHNIQUE: PA and lateral views of the chest obtained. FINDINGS: Opacity abutting the left heart border is again evident, and could reflect either a prominent epicardial fat pad or focal atelectasis. The right lung is clear. There are no pleural effusions. The cardiomediastinal silhouette is stable. The lungs are clear. There are no pleural effusions. The cardiomediastinal silhouette is normal. XR/XR chest 2V IMPRESSION: No acute disease or interval change since 05/29/2023. Dictated By: Brad Gillis MD Signed By: Electronically signed by Brad Gillis MD 06/26/23 1255 - Vent. Rate: 060 BPM Atrial Rate: 060 BPM P-R Int: 166 ms QRS Dur: 086 ms QT Int: 372 ms P-R-T Axes: 009 -40 034 degrees QTc Int: 372 ms Normal sinus rhythm Left axis deviation Inferior-posterior infarct , age undetermined Abnormal ECG When compared with ECG of 22-MAY-2023 11:22, No significant change was found DD/ [id number] Radiology Impression Discussion of test interpretation with radiology: I have reviewed the radiologist's reading. Independent Historian Clinical information obtained from an independent historian. History obtained from or confirmed by: Other (patient's fiance provided additional history and confirmed the history provided by the patient.) Chronic Conditions Patient?s care impacted by: Diabetes Discharge Plan Discharge Clinical Impression: Rotator cuff injury Patient Disposition: Home, Self-Care Instructions: Rotator Cuff Injury (ED), Rotator Cuff Injury Exercises (DC) Additional Instructions: Follow up with your primary care provider and an orthopedic provider. Return to the emergency department immediately if your symptoms worsen or if you develop any dizziness, shortness of breath, difficulty breathing, chest pain, blurry vision, loss of vision, nausea, vomiting, abdominal pain, fever, chills, back pain, or any other complaints. Prescriptions: New prednisone 20 mg tablet 20 mg PO DAILY 7 Days Qty: 7 0RF No Action oxycodone 5 mg tablet See Rx Instructions .ROUTE .COMPLEX PRN (Reason: pain) Qty: 20 0RF Rx Instructions: 1-2 tabs po q8 hours prn pain Partial Fill upon patient request. gabapentin 300 mg capsule 300 mg TID tizanidine 4 mg tablet 4 mg PO Q6-8H PRN (Reason: Pain) aspirin 81 mg Tablet,Delayed Release (Dr/Ec) 81 mg PO DAILY acetaminophen 500 mg Tablet 500 mg PO Q6H PRN (Reason: Pain) lisinopril 20 mg tablet 20 mg QAM (DME) Shower Chair Misc See Rx Instructions .Route Qty: 1 0RF Rx Instructions: As directed (DME) cane Device See Rx Instructions .Route Qty: 1 0RF Rx Instructions: As directed benzonatate 100 mg capsule 100 mg PO TID PRN (Reason: cough) Qty: 14 0RF prednisone 20 mg tablet 40 mg PO DAILY 5 Days Qty: 10 0RF fluticasone propionate [Flonase Allergy Relief] 50 mcg/actuation spray,suspension 2 spray intranasal DAILY Qty: 16 0RF Rx Instructions: administer into each nostril albuterol sulfate 90 mcg/actuation HFA aerosol inhaler 2 puff inhalation Q4-6H PRN (Reason: shortness of breath or wheezing) Qty: 6.7 0RF insulin lispro 100 unit/mL insulin pen 10 - 15 unit subcut TID PRN (Reason: Hyperglycemia) loratadine 10 mg tablet 10 mg PO QAM glipizide 5 mg tablet 5 mg PO TIDWM Januvia 100 mg tablet 100 mg PO DAILY cholecalciferol (vitamin D3) 25 mcg (1,000 unit) capsule 25 mcg PO DAILY mecobalamin (vitamin B12) 1,000 mcg tablet,disintegrating 1,000 mcg sublingual DAILY Rx Instructions: place tablet under tongue and allow to dissolve for at least30 secs before swallowing coenzyme Q10 [CoQ-10] 100 mg capsule 100 mg PO DAILY (DME) pen needle, diabetic 31 gauge x 3/16 needle See Rx Instructions .ROUTE QID Qty: 50 Rx Instructions: As directed Lantus U-100 Insulin 100 unit/mL solution 55 unit subcut BEDTIME (DME) insulin syringe-needle U-100 1 mL 31 gauge x 5/16 syringe See Rx Instructions .ROUTE .MEDSUPPLY Qty: 10 Rx Instructions: As directed (DME) OneTouch Ultra Blue Test Strip Strip See Rx Instructions Not Applicable TID Qty: 10 Rx Instructions: As directed oxycodone 5 mg tablet 5 mg PO Q6H PRN (Reason: pain) 5 Days Qty: 20 0RF Rx Instructions: Partial Fill only upon patient request. Livalo 2 mg tablet 2 mg PO DAILY Referrals: [facility] [place] [facility] [Provider Group] (Call to establish and follow up with an orthopedic provider.) Stan Fletcher MD [Primary Care Provider] - Stand Alone Forms: Work/School Release Interventions: ED Discharge Assessment Last Done: 06/26/23 13:01 Discharge Date/Time: 06/26/23 13:02 Print Language: Luxembourgish
--- NOTE | 2023-06-26 11:39 | ECG_ITS ---
Test Reason : cp Blood Pressure : / mmHG Vent. Rate : 060 BPM Atrial Rate : 060 BPM P-R Int : 166 ms QRS Dur : 086 ms QT Int : 372 ms P-R-T Axes : 009 -40 034 degrees QTc Int : 372 ms Normal sinus rhythm Left anterior fascicular block RSR' or QR pattern in V1 suggests right ventricular conduction delay Abnormal ECG When compared with ECG of 22-MAY-2023 11:22, No significant change was found Referred By: Nyasia Hernandez Electronically Signed By:JACOBO ALLEN MD
[2023-06-26 11:49] LABS: MANUAL DIFF FLAG NO
[2023-06-26 11:51] LABS: Basophils Absolute Auto 0.1 X10*3/uL (0.0-0.2); Eosinophils Absolute Auto 0.7 X10*3/uL (0.0-0.4); Eosinophils Percent Auto 15.1 % (0-4); Hemoglobin 13.6 g/dl (14.0-18.0); Imm Gran Abs Auto 0.01 X10*3/uL (0.00-0.03); Imm Gran Pct Auto 0.2 % (0.0-0.4); Lymphocytes Absolute Auto 1.7 X10*3/uL (1.2-4.9); Lymphocytes Percent Auto 34.2 % (20-40); Mean Corpuscular HGB Conc 34.9 g/dl (31.0-36.0); Mean Corpuscular Hemoglobin 32.2 pg (27.0-33.0); Mean Corpuscular Volume 92.4 fL (80.0-98.0); Mean Platelet Volume 9.6 fL (9.4-12.4); Monocytes Absolute Auto 0.5 X10*3/uL (0.1-1.2); Monocytes Percent Auto 9.6 % (2-11); Neutrophils Percent Auto 39.9 % (45-73); Platelet Count 149 X10*3/uL (160-400); Red Blood Count 4.22 X10*6/uL (4.60-5.80); Red Cell Distribution Width 12.6 % (11.0-16.0); White Blood Count 4.9 X10*3/uL (4.8-10.8)
[2023-06-26 12:06] LABS: Alanine Aminotransferase 23 U/L (0-40); Alkaline Phosphatase 67 U/L (39-117); Anion Gap 13 (12-20); Aspartate Amino Transferase 19 U/L (5-37); Bilirubin Total 0.6 mg/dL (0.0-1.0); Blood Urea Nitrogen 24 mg/dL (9-16); Calcium 9.4 mg/dL (8.4-10.2); Carbon Dioxide 25 mmol/L (22-29); Chloride 106 mmol/L (96-108); Creatinine Clr Calc Pharmacy 72.3; Estimated Glomerular Filt Rate > 60; Glucose Random 287 mg/dL (60-115); Magnesium 1.7 mg/dL (1.6-2.6); Potassium 4.6 mmol/L (3.3-5.1); Sodium 139 mmol/L (135-145); Total Protein 6.8 g/dL (6.5-8.0)
[2023-06-26 12:12] LABS: Troponin-I High Sensitivity < 2.7 ng/L (<3.5-35.0)
== END 2023-06-26 13:02 | disposition home or self-care (01) ==
PROVIDERS: Physician Assistant Medical; Emergency Provider Student in an Organized Health Care Education/Training Program; PCP Internal Medicine
DX: S46.002A Unspecified injury of muscle(s) and tendon(s) of the rotator cuff of left shoulder, initial encounter (principal); X58.XXXA Exposure to other specified factors, initial encounter; I10 Essential (primary) hypertension; E11.9 Type 2 diabetes mellitus without complications; Z79.4 Long term (current) use of insulin; Y93.9 Activity, unspecified; Y92.9 Unspecified place or not applicable; Y99.9 Unspecified external cause status
CPT/HCPCS: 36415; 71046; 73030; 80053; 83735; 84484; 85025; 93005; 99283

== ENCOUNTER 2023-07-03 07:43 | Outpatient (AMB) | payer OTHER, MEDICAID, SELFPAY ==
[2023-07-03 07:57] VITALS: BMI 31.6
--- NOTE | 2023-07-03 07:57 | MHC.OFFVIS ---
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 Patient describes his pain as sharp and severe nature. His pain has gotten worse over the last 6 months in spite of continued non operative treatments. He has tried Tylenol, anti-inflammatory medicines, tramadol and oxycodone which gave him minimal relief. Patient reports difficulty lifting his left hand above shoulder height. He does do quite a bit of lifting at work. He has done physical therapy which aggravated his pain. His symptoms have gotten worse over the last 6 weeks in spite of conservative treatments. He has had injections in the past which gave him minimal relief. Visitor Use Assistant Name: Crystal ID#[id number] Allergies bee pollen [BEE STINGS] Allergy (Severe, Verified 06/26/23 11:36) SWELLING and facial swelling Sulfa (Sulfonamide Antibiotics) [SULFA (SULFONAMIDE ANTIBIOTICS)] Allergy (Severe, Verified 06/26/23 11:36) swelling, hives prednisone Allergy (Verified 07/03/23 08:10) heart palpitation, raises glucose levels adhesive Adverse Reaction (Intermediate, Verified 06/26/23 11:36) Rash Medication List - Last Reconciled 07/03/23 by Eddie Lawler MD acetaminophen 500 mg PO Q6H PRN albuterol sulfate 90 mcg/actuation 2 puffs inhalation Q4-6H PRN aspirin 81 mg PO DAILY atorvastatin 40 mg PO DAILY benzonatate 100 mg PO TID PRN blood sugar diagnostic As directed cane As directed cholecalciferol (vitamin D3) 25 mcg PO DAILY coenzyme Q10 (CoQ-10) 100 mg PO DAILY fluticasone propionate 50 mcg/actuation (Flonase Allergy Relief) 2 sprays intranasal DAILY gabapentin 300 mg TID glipizide 5 mg PO TIDWM insulin aspart U-100 (Novolog FlexPen U-100 Insulin aspart) subcut insulin glargine 55 units subcut BEDTIME insulin glargine (Lantus Solostar U-100 Insulin) units subcut insulin lispro 10 - 15 units subcut TID PRN insulin syringe-needle U-100 As directed lisinopril 20 mg QAM loratadine 10 mg PO QAM mecobalamin (vitamin B12) 1,000 mcg sublingual DAILY oxycodone 5 mg PO Q6H PRN 5 days oxycodone 1-2 tabs po q8 hours prn pain Partial Fill upon patient request. pen needle, diabetic As directed pitavastatin calcium (Livalo) 2 mg PO DAILY prednisone 20 mg PO DAILY 7 days prednisone 40 mg (2 x 20 mg) PO DAILY 5 days Shower Chair As directed sitagliptin phosphate 100 mg PO DAILY tizanidine 4 mg PO Q6-8H PRN PFSH Medical History Chronic pain syndrome Personal history of COVID-19 Hx of renal calculi Elevated cholesterol HTN (hypertension) Seasonal allergies Deaf Diabetes Surgical History S/P placement of nerve stimulator Hx of cholecystectomy History of right inguinal hernia repair (~12/29/19) History of lithotripsy History of bilateral inguinal hernia repair Family History Mother History of lung cancer Social History (Updated 07/03/23 @ 08:08 by DANY Dillard) Household Members: Spouse and Family Housing: Apartment Are you a primary career manager to a significant other at home: No Do you presently have visiting nurse or other home services: No Alcohol intake: current Alcohol intake frequency: holidays/special occasions only Patient Tobacco Use Status: Never used Tobacco service: No Current occupational status: employed Current occupation: [employer] Physical Exam Vital Signs: BMI result Body Mass Index 31.6 Const Other: Well-nourished well-developed very friendly male awake alert and oriented x3 in no acute distress Extrem Other: Bilateral upper extremity examination shows good capillary refill, no skin lesions noted, normal sensation light touch Left shoulder examination shows decreased range of motion when compared to his left shoulder, 4+ out of 5 strength with supraspinatus testing, positive impingement signs, tenderness over his acromioclavicular joint, no instability Results Reviewed Results Reviewed: X-rays of the patient's left shoulder show severe acromioclavicular joint narrowing, a type 3 acromion, no acute bony abnormalities Assessment & Plan Assessment & Plan (1) Impingement syndrome of left shoulder: Code(s): M75.42 - Impingement syndrome of left shoulder Plan: Mr. Escobar presents with left shoulder pain and weakness due to impingement syndrome, acromioclavicular joint arthritis and possible rotator cuff tearing. Thus, I will send the patient for an MRI of his left shoulder for further evaluation of his rotator cuff tendons. If he does have a full-thickness tear I will recommend surgical repair to optimize his future functional level. Feel free to call me at any time should questions regarding his orthopedic management arise. Thank very much for asking me to see this very friendly gentleman. I spent 22 minutes in reviewing the patient's records and imaging studies, seeing the patient and documenting in the medical record. Orders: Orders MR shoulder LT wo con Today M75.42 - Impingement syndrome of left shoulder Coding Level of Care Code New Pt Level 2 (04770) Diagnoses Impingement syndrome of left shoulder M75.42
== END 2023-07-03 08:25 | disposition home or self-care (01) ==
PROVIDERS: PCP Internal Medicine; Visit Provider Orthopaedic Surgery
DX: M75.42 Impingement syndrome of left shoulder (principal)
CPT/HCPCS: 99202

== ENCOUNTER → 2023-07-03 07:43 | Outpatient (BNVA) | payer OTHER, SELFPAY | PROVIDERS: PCP Internal Medicine; Visit Provider Orthopaedic Surgery | DX: M75.42 Impingement syndrome of left shoulder (principal) | CPT/HCPCS: 99202 ==

== ENCOUNTER 2023-08-07 07:19 | Outpatient (REF) | payer OTHER, SELFPAY ==
--- NOTE | ~2023-08-07 | MR_ITS ---
EXAMINATION: MR SHOULDER WITHOUT CONTRAST, LEFT CLINICAL INFORMATION: Posterior left shoulder and arm pain since 06/23/2023. Impingement syndrome. COMPARISON: Left shoulder radiographs dated 06/26/2023. TECHNIQUE: MRI of the shoulder was performed using routine sequences on a high-field scanner. FINDINGS: ROTATOR CUFF: [id number] supraspinatus tendinosis with anterior bursal surface fraying measuring up to 1.7 cm in AP dimension. Fraying extends proximally along the myotendinous junction. Moderate subscapularis tendinosis with articular surface fraying/partial tearing measuring up to 3.1 cm in ML dimension. Mild supraspinatus muscle atrophy. BICEPS: Thickening and increased T2 signal within the intra-articular long head biceps tendon, consistent with moderate tendinosis. Possible longitudinal partial tearing. No full-thickness transverse tendon tear or tendon retraction. CORACOACROMIAL ARCH: The undersurface of the acromion is curved with tiny subacromial spurs. Severe acromioclavicular osteoarthritis and small joint effusion. Fluid and edema within the subacromial-subdeltoid bursa, consistent with mild bursitis. LABRUM/CAPSULE: Heterogeneously increased T2 signal within the undersurface of the superior and posterosuperior labrum, consistent with nondisplaced undersurface tearing. Thickening and edema of the inferior joint capsule which can be seen in the setting of adhesive capsulitis. GLENOHUMERAL JOINT/MARROW: Intact articular cartilage. Trace joint effusion. MR/MR shoulder LT wo con IMPRESSION: 1. [id number] supraspinatus tendinosis with anterior bursal surface fraying measuring 1.7 cm in AP dimension. Fraying extends proximally along the myotendinous junction. Moderate subscapularis tendinosis with articular surface fraying/partial tearing measuring 3.1 cm in ML dimension. Mild supraspinatus muscle atrophy. 2. Moderate intra-articular long head biceps tendinosis with possible longitudinal partial tearing. No full-thickness transverse tendon tear or tendon retraction. 3. Severe acromioclavicular osteoarthritis and small joint effusion with tiny subacromial spurs. 4. Mild subacromial-subdeltoid bursitis. 5. Nondisplaced undersurface tearing of the superior and posterosuperior labrum. 6. Thickening and edema of the inferior joint capsule which can be seen in the setting of adhesive capsulitis. 7. Trace glenohumeral joint effusion.
== END 2023-08-07 07:20 | disposition home or self-care (01) ==
LOC: HO.MRI 07:19
PROVIDERS: PCP Internal Medicine; Visit Provider Orthopaedic Surgery
DX: M75.42 Impingement syndrome of left shoulder (principal)
CPT/HCPCS: 73221

== ENCOUNTER 2023-08-14 11:28 | Outpatient (AMB) | payer OTHER, SELFPAY ==
--- NOTE | 2023-08-14 11:47 | A.OFFVIS_ITS ---
Intake Intake Visit Reasons: OV- MRI Shoulder LT review Intake Note: This is a 62 year old male who presents for a MRI review of his left shoulder. 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 The patient describes his pain as sharp and severe nature. His pain has gotten worse over the last 6 months in spite of continued non operative treatments. He has tried Tylenol, anti-inflammatory medicines, tramadol and oxycodone which gave him minimal relief. Patient reports difficulty lifting his left hand above shoulder height. He does do quite a bit of lifting at work. He has done physical therapy which aggravated his pain. His symptoms have gotten worse over the last 6 weeks in spite of conservative treatments. He has had injections in the past which gave him minimal relief. Allergies bee pollen [BEE STINGS] Allergy (Severe, Verified 08/14/23 11:47) SWELLING and facial swelling Sulfa (Sulfonamide Antibiotics) [SULFA (SULFONAMIDE ANTIBIOTICS)] Allergy (Severe, Verified 08/14/23 11:47) swelling, hives prednisone Allergy (Verified 08/14/23 11:47) heart palpitation, raises glucose levels adhesive Adverse Reaction (Intermediate, Verified 08/14/23 11:47) Rash Medication List - Last Reconciled 08/14/23 by Angela Jones RN acetaminophen 500 mg PO Q6H PRN albuterol sulfate 90 mcg/actuation 2 puffs inhalation Q4-6H PRN aspirin 81 mg PO DAILY atorvastatin 40 mg PO DAILY benzonatate 100 mg PO TID PRN blood sugar diagnostic As directed cane As directed cholecalciferol (vitamin D3) 25 mcg PO DAILY coenzyme Q10 (CoQ-10) 100 mg PO DAILY fluticasone propionate 50 mcg/actuation (Flonase Allergy Relief) 2 sprays intranasal DAILY gabapentin 300 mg TID glipizide 5 mg PO TIDWM insulin aspart U-100 (Novolog FlexPen U-100 Insulin aspart) subcut insulin glargine 55 units subcut BEDTIME insulin glargine (Lantus Solostar U-100 Insulin) units subcut insulin lispro 10 - 15 units subcut TID PRN insulin syringe-needle U-100 As directed lisinopril 20 mg QAM loratadine 10 mg PO QAM mecobalamin (vitamin B12) 1,000 mcg sublingual DAILY oxycodone 5 mg PO Q6H PRN 5 days oxycodone 1-2 tabs po q8 hours prn pain Partial Fill upon patient request. pen needle, diabetic As directed pitavastatin calcium (Livalo) 2 mg PO DAILY prednisone 20 mg PO DAILY 7 days prednisone 40 mg (2 x 20 mg) PO DAILY 5 days Shower Chair As directed sitagliptin phosphate 100 mg PO DAILY tizanidine 4 mg PO Q6-8H PRN tramadol 50 mg PO BID PRN PFSH Medical History Chronic pain syndrome Personal history of COVID-19 Hx of renal calculi Elevated cholesterol HTN (hypertension) Seasonal allergies Deaf Diabetes Surgical History S/P placement of nerve stimulator Hx of cholecystectomy History of right inguinal hernia repair (~12/29/19) History of lithotripsy History of bilateral inguinal hernia repair Family History Mother History of lung cancer Social History Household Members: Spouse and Family Housing: Apartment Are you a primary acute care clinical nurse specialist to a significant other at home: No Do you presently have visiting nurse or other home services: No Alcohol intake: current Alcohol intake frequency: holidays/special occasions only Patient Tobacco Use Status: Never used Tobacco service: No Current occupational status: employed Current occupation: [employer] Physical Exam Const Other: Well-nourished well-developed very friendly male awake alert and oriented x3 in no acute distress Extrem Other: Bilateral upper extremity examination shows good capillary refill, no skin lesions noted, normal sensation light touch Left shoulder examination shows decreased range of motion when compared to his right shoulder, 4+ out of 5 strength with supraspinatus testing, positive impingement signs, tenderness over his acromioclavicular joint, no instability Results Reviewed Results Reviewed: MRI of the patient's left shoulder show severe acromioclavicular joint narrowing, a type 3 acromion, signal change within the supraspinatus tendon most likely due to rotator cuff tendinosis versus a partial-thickness tear Assessment & Plan Assessment & Plan (1) Impingement syndrome of left shoulder: Code(s): M75.42 - Impingement syndrome of left shoulder Plan Mr. Escobar presents with progressively worsening left shoulder pain due to impingement syndrome, acromioclavicular joint arthritis and rotator cuff tendinosis versus a partial-thickness tear. I had a lengthy discussion with the patient regarding the treatment options. At this point he has failed continued non operative treatments. The risks and benefits of left shoulder surgery were discussed at length with the patient. The patient wishes to proceed with surgery. Surgery will most likely involve left shoulder diagnostic arthroscopy with distal clavicle excision and acromioplasty. The patient will contact my office to pick a surgery date. He will follow-up as instructed. Feel free to call me at any time should questions regarding his orthopedic management arise. I spent 22 minutes in reviewing the patient's records and imaging studies, seeing the patient and documenting in the medical record. Medications: Refilled tramadol 50 mg PO BID PRN 30 tabs 0RF pain Coding Level of Care Code Est Pt Level 2 (47390) Diagnoses Impingement syndrome of left shoulder M75.42
== END 2023-08-14 12:20 | disposition home or self-care (01) ==
PROVIDERS: PCP Internal Medicine; Visit Provider Orthopaedic Surgery
DX: M75.42 Impingement syndrome of left shoulder (principal)
CPT/HCPCS: 99213

== ENCOUNTER → 2023-08-14 11:28 | Outpatient (BNVA) | payer OTHER, SELFPAY | PROVIDERS: PCP Internal Medicine; Visit Provider Orthopaedic Surgery | DX: M75.42 Impingement syndrome of left shoulder (principal) | CPT/HCPCS: 99212 ==

== ENCOUNTER 2023-09-14 08:47 | Day surgery (SDC) | payer OTHER, SELFPAY ==
[2023-09-06 12:16] VITALS: BMI 30.4
--- NOTE | 2023-09-13 09:14 | P.CONAN_ITS ---
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 special effects designer Anesthesia Pre-Procedure Meds Is the patient on any of the following meds?: Any other SGL-1 drugs or drugs that delay gastric emptying (Januvia) PMFSH Active Problems Active Problems: All Active Problems (Updated 09/04/23 @ 14:18 by BRANDON Mcneil) Failed back syndrome of lumbar spine (Acute) Impingement syndrome of left shoulder (Acute) Status post lumbar and lumbosacral fusion by anterior technique (Acute) Neurogenic claudication due to lumbar spinal stenosis (Acute) Neurogenic claudication (Acute) Spinal cord stimulator status (Acute) Lumbar stenosis (Acute) Multilevel degenerative disc disease (Acute) Lumbar facet arthropathy (Acute) Spondylosis of lumbosacral spine with radiculopathy (Acute) Right groin pain (Acute) Chronic pain syndrome (Acute) Diabetes (Acute) Past Medical History Medical History Chronic pain syndrome Personal history of COVID-19 Hx of renal calculi Elevated cholesterol HTN (hypertension) Seasonal allergies Deaf Diabetes Family History Family History Mother History of lung cancer Family history of problems with anesthesia: No Surgical History Surgical History History of lumbar surgery (12/25/22) S/P placement of nerve stimulator Hx of cholecystectomy History of right inguinal hernia repair (~12/29/19) History of lithotripsy History of bilateral inguinal hernia repair History of Problems with Anesthesia: No Social History Social History Household Members: Spouse and Family Housing: Apartment Are you a primary home health aide caregiver to a significant other at home: No Do you presently have visiting nurse or other home services: No Alcohol intake: current Alcohol intake frequency: holidays/special occasions only Patient Tobacco Use Status: Never used Tobacco Advance Directives Date on File: 12/27/22 service: No Current occupational status: employed Current occupation: [employer] Allergies Allergy/AdvReac Type Severity Reaction Status Date / Time bee pollen [BEE STINGS] Allergy Severe SWELLING Verified 09/14/23 09:40 and facial swelling Sulfa (Sulfonamide Allergy Severe swelling, Verified 09/14/23 09:40 Antibiotics) hives [SULFA (SULFONAMIDE ANTIBIOTICS)] prednisone Allergy heart Verified 09/14/23 09:40 palpitation, raises glucose levels adhesive AdvReac Intermediate Rash Verified 09/14/23 09:40 Active Medications: Current Medications Cefazolin Sodium/Dextrose (Ancef) 2 gm in 50 mls @ 100 mls/hr IV PREOP ONE Stop: 09/14/23 06:22 Home Medications Medication Instructions Recorded Confirmed Last Taken Type blood sugar diagnostic #10 ea 10/29/20 08/14/23 Unknown History cholecalciferol (vitamin D3) 25 25 mcg PO DAILY 10/29/20 09/05/23 Unknown History mcg (1,000 unit) capsule coenzyme Q10 100 mg capsule 100 mg PO DAILY 10/29/20 09/05/23 Unknown History (CoQ-10) glipizide 5 mg tablet 5 mg PO DAILY 10/29/20 09/14/23 09/12/23 History insulin syringe-needle U-100 1 mL #10 ea 10/29/20 08/14/23 Unknown History 31 gauge x 01/02 mecobalamin (vitamin B12) 1,000 1,000 mcg sublingual DAILY 10/29/20 09/05/23 Unknown History mcg disintegrating tablet,sublingual pen needle, diabetic 31 gauge x #50 ea 10/29/20 08/14/23 Unknown History 3 sitagliptin phosphate 100 mg tablet 100 mg PO DAILY 10/29/20 09/05/23 Unknown History pitavastatin calcium 2 mg tablet 2 mg PO DAILY 03/30/22 09/05/23 Unknown History (Livalo) acetaminophen 500 mg tablet 500 mg PO Q6H PRN Pain 12/05/22 09/05/23 Unknown History gabapentin 300 mg capsule 300 mg TID 12/05/22 09/05/23 Unknown History tizanidine 4 mg tablet 4 mg PO Q6-8H PRN Pain 12/05/22 09/05/23 Unknown History lisinopril 20 mg tablet 20 mg QAM 12/25/22 09/14/23 09/12/23 History atorvastatin 40 mg tablet 40 mg PO DAILY 07/03/23 09/05/23 Unknown History insulin aspart U-100 100 unit/mL subcut TID 07/03/23 08/14/23 09/12/23 History (3 mL) subcutaneous pen (Novolog FlexPen U-100 Insulin aspart) insulin glargine 100 unit/mL (3 50 - 55 unit subcut BEDTIME 07/03/23 09/14/23 09/12/23 History mL) subcutaneous pen (Lantus Solostar U-100 Insulin) sitagliptin phosphate 100 mg 100 mg PO DAILY 09/14/23 09/14/23 09/12/23 05:30 History tablet (Januvia) Exam Height,Weight and Vital Signs: Height 5 ft 8 in Weight 90.718 kg Pertinent Lab Results Pertinent Lab Results: Laboratory Tests 06/26/23 11:45 WBC 4.9 Hgb 13.6 L Hct 39.0 L Plt Count 149 L Sodium 139 Potassium 4.6 Chloride 106 Carbon Dioxide 25 BUN 24 H Creatinine 1.21 Narrative Narrative: EKG 11/2022 Vent. Rate : 059 BPM ? ? Atrial Rate : 059 BPM ?? P-R Int : 178 ms? QRS Dur : 088 ms ? ? QT Int : 386 ms ? ? ? P-R-T Axes : 012 -32 026 degrees ?? QTc Int : 382 ms ? Sinus bradycardia Left axis deviation Increased R/S ratio in V1, consider early transition or posterior infarct Abnormal ECG No previous ECGs available ECHO 11/2022 Conclusions: - Essentially normal study Assessment and Plan Assessment Anesthesia Assessment: Chart Reviewed Final Anesthetic Review Family History of Problems with Anesthesia: No History of Problems with Anesthesia: No Documented by User: Li Timmons MD 09/17/23 07:49 HPI - Anesthesia Eval Anesthesia Pre-Procedure Meds If Yes to any meds - educate patient: Pt education - increased risk of aspiration PMFSH Past Medical History Medical History Chronic pain syndrome Personal history of COVID-19 Hx of renal calculi Elevated cholesterol HTN (hypertension) Seasonal allergies Deaf Diabetes Family History Family History Mother History of lung cancer Surgical History Surgical History History of lumbar surgery (12/25/22) S/P placement of nerve stimulator Hx of cholecystectomy History of right inguinal hernia repair (~12/29/19) History of lithotripsy History of bilateral inguinal hernia repair Social History Social History Household Members: Spouse and Family Housing: Apartment Are you a primary home health aide caregiver to a significant other at home: No Do you presently have visiting nurse or other home services: No Alcohol intake: current Alcohol intake frequency: holidays/special occasions only Patient Tobacco Use Status: Never used Tobacco Advance Directives Date on File: 12/27/22 service: No Current occupational status: employed Current occupation: [employer] Allergies Allergy/AdvReac Type Severity Reaction Status Date / Time bee pollen [BEE STINGS] Allergy Severe SWELLING Verified 09/14/23 09:40 and facial swelling Sulfa (Sulfonamide Allergy Severe swelling, Verified 09/14/23 09:40 Antibiotics) hives [SULFA (SULFONAMIDE ANTIBIOTICS)] prednisone Allergy heart Verified 09/14/23 09:40 palpitation, raises glucose levels adhesive AdvReac Intermediate Rash Verified 09/14/23 09:40 Home Medications Medication Instructions Recorded Confirmed Last Taken Type blood sugar diagnostic #10 ea 10/29/20 08/14/23 Unknown History cholecalciferol (vitamin D3) 25 25 mcg PO DAILY 10/29/20 09/05/23 Unknown History mcg (1,000 unit) capsule coenzyme Q10 100 mg capsule 100 mg PO DAILY 10/29/20 09/05/23 Unknown History (CoQ-10) glipizide 5 mg tablet 5 mg PO DAILY 10/29/20 09/14/23 09/12/23 History insulin syringe-needle U-100 1 mL #10 ea 10/29/20 08/14/23 Unknown History 31 gauge x /16 mecobalamin (vitamin B12) 1,000 1,000 mcg sublingual DAILY 10/29/20 09/05/23 Unknown History mcg disintegrating tablet,sublingual pen needle, diabetic 31 gauge x #50 ea 10/29/20 08/14/23 Unknown History 3/16 sitagliptin phosphate 100 mg tablet 100 mg PO DAILY 10/29/20 09/05/23 Unknown History pitavastatin calcium 2 mg tablet 2 mg PO DAILY 03/30/22 09/05/23 Unknown History (Livalo) acetaminophen 500 mg tablet 500 mg PO Q6H PRN Pain 12/05/22 09/05/23 Unknown History gabapentin 300 mg capsule 300 mg TID 12/05/22 09/05/23 Unknown History tizanidine 4 mg tablet 4 mg PO Q6-8H PRN Pain 12/05/22 09/05/23 Unknown History lisinopril 20 mg tablet 20 mg QAM 12/25/22 09/14/23 09/12/23 History atorvastatin 40 mg tablet 40 mg PO DAILY 07/03/23 09/05/23 Unknown History insulin aspart U-100 100 unit/mL subcut TID 07/03/23 08/14/23 09/12/23 History (3 mL) subcutaneous pen (Novolog FlexPen U-100 Insulin aspart) insulin glargine 100 unit/mL (3 50 - 55 unit subcut BEDTIME 07/03/23 09/14/23 09/12/23 History mL) subcutaneous pen (Lantus Solostar U-100 Insulin) sitagliptin phosphate 100 mg 100 mg PO DAILY 09/14/23 09/14/23 09/12/23 05:30 History tablet (Januvia) Exam Airway Mallampati Class: II TM Dist: >3cm Neck ROM: Full Heart: rrr Lungs: cta Assessment and Plan Assessment Anesthesia Assessment: Anesthesia Plan Discussed Final Anesthetic Review NPO: Yes ASA Class: III Final Preanesthetic Review: No Changes in Pt Med Stat, Meds/Allgs Chart Reviewed, Consent Obtained/Reviewed and Anes Risks/Benef Reviewed Patient Risk: Intermediate Procedure Risk: Intermediate Anesthetic Plan Anesthetic Plan: GA and Regional Block Disposition: Standard PACU
[2023-09-14] VITALS (11 sets, daily range): BP systolic 122–168; BP diastolic 46–89; PULSE 67–83; RESP 10–20; TEMP 36.3–36.4; O2SAT 95–98; BMI 32.3
[2023-09-14 10:01] LABS: Glucose, Whole Blood 184 mg/dL (60-115)
[2023-09-14] MEDS: Lactated Ringers 1,000 ML 100 ML IVCONT (10:10)
--- NOTE | 2023-09-14 10:50 | PC.NURSE ---
Deon organic search lead at bedside during entire preop visit, signing of consents, and block/time out. Deon to be in waiting room/cafeteria and available for PACU as soon as patient arrives there. Antonette REWIND OPERATOR made aware and given Karen phone number.
--- NOTE | 2023-09-14 12:09 | PM.OP ---
Brief Operative Note Date of Service: 09/14/23 Pre-op diagnosis: Left shoulder impingement syndrome, left shoulder acromioclavicular joint arthritis, left shoulder adhesive capsulitis Post-op diagnosis: same Procedure: Left shoulder diagnostic arthroscopy with left shoulder arthroscopic distal clavicle excision, left shoulder arthroscopic acromioplasty, left shoulder arthroscopic anterior capsular release, left shoulder manipulation under anesthesia Implants: none Surgeon: Eddie Lawler MD Anesthesia: GETA and regional Was an Special Effects Technician used for this Procedure?: No Estimated blood loss (mL): 10 Pathology: none sent Condition: stable Disposition: PACU
--- NOTE | 2023-09-14 12:10 | P.OP_ITS ---
Operative Note Operative Note Date of Service: 09/14/23 Narrative: After the patient was identified as Nick Escobar and his left shoulder was initialed by myself the patient was brought to the holding area where a left shoulder interscalene regional block was performed by the anesthesiologist in routine fashion. The patient was then brought to the operating room where general anesthesia was induced by the anesthesiologist in routine fashion. The patient was given 2 g of IV Ancef preoperatively for infection prophylaxis. Examination under anesthesia of the patient's left shoulder showed decreased range of motion when compared to the right shoulder. The patient's left shoul briana had forward flexion to 140 degrees compared to 170 degrees, external rotation to 40 degrees compared to 60 degrees, and internal rotation to 50 degrees compared to 60 degrees. The patient was gently positioned in the beach chair position with all bony prominences well padded. The patient's left shoulder region and upper extremity were prepped and draped in sterile fashion. A formal time-out was completed. A #11 scalpel blade was used to make a posterior portal 2 cm inferior and 1 cm medial to the posterolateral corner of the acromion. Blunt trocar technique was used to enter the glenohumeral joint in routine fashion. An anterior portal was made just lateral to the coracoid process after proper positioning was confirmed using a spinal needle. Diagnostic arthroscopy showed minimal degenerative changes of the glenoid and humeral head articular surfaces. There was no evidence of rotator cuff tearing. There was no evidence of injury to the biceps tendon or its insertion onto the glenoid. There was inflammation of the anterior joint capsule consistent with adhesive capsulitis. The ArthroCare Wand was then used to perform an anterior capsular release between the inferior border of the biceps tendon and the superior border of the subscapularis tendon. The arthroscope was then placed from the posterior portal into the subacromial space. A lateral portal was made 2 fingerbreadths lateral to the anterior lateral corner of the acromion. The ArthroCare Wand was used to ablate soft tissues along the undersurface of the acromion as well as to excise the coracoacromial ligament. There was a sharp spur along the undersurface of the acromion which was removed using the hooded bur. The arthroscope was then placed into the lateral portal and the acromioplasty was completed with the bur in the posterior portal using the posterior aspect of the acromion as a cutting block. The ArthroCare Wand was then brought in through the anterior portal and was used to ablate soft tissues along the acromioclavicular joint and distal clavicle. The posterior and superior ligamentous structures were left intact. A distal clavicle excision of 8 mm was performed using the hooded bur. Any remaining bursal tissue was removed using the arthroscopic shaver. The subacromial space was irrigated and then drained. All arthroscopic instruments were removed. A gentle manipulation under anesthesia was then performed. Full passive range of motion was easily obtained. The 3 portals were closed with 3-0 nylon interrupted suture. The subacromial space was injected with Marcaine. Dry sterile dressing was placed over all incisions. The patient's left upper extremity was placed into a sling. The patient was awoken and extubated in the operating room. The patient was transferred to the recovery room in stable condition.
[2023-09-14] MEDS: oxyCODONE HCl Immed Release 5 MG TABLET PO (12:25)
[2023-09-14] MEDS: Acetaminophen 325 MG TABLET 650 MG PO (12:25)
[2023-09-14] MEDS: fentaNYL citrate/PF 100 MCG/2 ML VIAL 50 MCG IVPUSH (12:25)
[2023-09-14] MEDS: cefTRIAXone sodium 1 GM in 0.9 % Sodium Chloride 50 ML IV (13:10)
== END 2023-09-14 14:21 | disposition home or self-care (01) ==
PROVIDERS: PCP Internal Medicine; Visit Provider Orthopaedic Surgery
PROC: (CPT 29805; principal; 2023-09-14 11:00)
DX: M75.42 Impingement syndrome of left shoulder (principal); M19.012 Primary osteoarthritis, left shoulder; M75.02 Adhesive capsulitis of left shoulder; G89.4 Chronic pain syndrome; H91.3 Deaf nonspeaking, not elsewhere classified; E11.9 Type 2 diabetes mellitus without complications; E78.00 Pure hypercholesterolemia, unspecified; J30.2 Other seasonal allergic rhinitis; Z79.82 Long term (current) use of aspirin; Z79.4 Long term (current) use of insulin; Z79.84 Long term (current) use of oral hypoglycemic drugs; Z79.899 Other long term (current) drug therapy; Z88.2 Allergy status to sulfonamides; Z88.8 Allergy status to other drugs, medicaments and biological substances; L23.1 Allergic contact dermatitis due to adhesives; Z86.16 Personal history of COVID-19; Z90.49 Acquired absence of other specified parts of digestive tract; Z87.442 Personal history of urinary calculi
CPT/HCPCS: 29824; 29825; 29826; 82947; J0131; J0171; J0665; J0690; J0696; J1100; J2250; J2405; J2704; J2795; J3010

== ENCOUNTER → 2023-09-14 08:47 | Outpatient (BNV) | payer OTHER, SELFPAY | PROVIDERS: PCP Internal Medicine; Visit Provider Orthopaedic Surgery | DX: M75.02 Adhesive capsulitis of left shoulder (principal); M19.012 Primary osteoarthritis, left shoulder; M75.42 Impingement syndrome of left shoulder | CPT/HCPCS: 29824; 29826 ==

== ENCOUNTER 2023-09-27 11:17 | Outpatient (AMB) | payer OTHER, SELFPAY ==
--- NOTE | 2023-09-27 08:35 | MHC.OFFVIS ---
Intake Intake Visit Reasons: PO- LT shoulder 09/14/23 Intake Note: Nick calzada 62 year old left hand dominant male presents today as a new patient for an evaluation of left shoulder pain Allergies bee pollen [BEE STINGS] Allergy (Severe, Verified 09/14/23 09:40) SWELLING and facial swelling Sulfa (Sulfonamide Antibiotics) [SULFA (SULFONAMIDE ANTIBIOTICS)] Allergy (Severe, Verified 09/14/23 09:40) swelling, hives prednisone Allergy (Verified 09/14/23 09:40) heart palpitation, raises glucose levels adhesive Adverse Reaction (Intermediate, Verified 09/14/23 09:40) Rash Medication List - Last Reconciled 09/27/23 by Noemi Nguyen PA-C acetaminophen 500 mg PO Q6H PRN albuterol sulfate 90 mcg/actuation 2 puffs inhalation Q4-6H PRN atorvastatin 40 mg PO DAILY benzonatate 100 mg PO TID PRN blood sugar diagnostic As directed cane As directed cholecalciferol (vitamin D3) 25 mcg PO DAILY coenzyme Q10 (CoQ-10) 100 mg PO DAILY fluticasone propionate 50 mcg/actuation (Flonase Allergy Relief) 2 sprays intranasal DAILY gabapentin 300 mg TID glipizide 5 mg PO DAILY hydromorphone (Dilaudid) 4 mg (2 x 2 mg) PO Q4H PRN insulin aspart U-100 (Novolog FlexPen U-100 Insulin aspart) subcut TID insulin glargine (Lantus Solostar U-100 Insulin) 50 - 55 units subcut BEDTIME insulin syringe-needle U-100 As directed lisinopril 20 mg QAM mecobalamin (vitamin B12) 1,000 mcg sublingual DAILY pen needle, diabetic As directed pitavastatin calcium (Livalo) 2 mg PO DAILY Shower Chair As directed sitagliptin phosphate (Januvia) 100 mg PO DAILY sitagliptin phosphate 100 mg PO DAILY tizanidine 4 mg PO Q6-8H PRN tramadol 50 mg PO BID PRN HPI PO- LT shoulder 09/14/23 HPI Details 62-year-old male returns to the office today s/p Left shoulder diagnostic arthroscopy with left shoulder arthroscopic distal clavicle excision, left shoulder arthroscopic acromioplasty, left shoulder arthroscopic anterior capsular release, left shoulder manipulation under anesthesia 09/14/2023. He is doing quite well. He has discontinued the use of the sling. He has been performing activities with caution of not overdoing it. He has no concerns today. [facility] Medical History Chronic pain syndrome Personal history of COVID-19 Hx of renal calculi Elevated cholesterol HTN (hypertension) Seasonal allergies Deaf Diabetes Surgical History History of lumbar surgery (12/25/22) S/P placement of nerve stimulator Hx of cholecystectomy History of right inguinal hernia repair (~12/29/19) History of lithotripsy History of bilateral inguinal hernia repair Family History Mother History of lung cancer Social History Household Members: Spouse and Family Housing: Apartment Are you a primary animal care worker to a significant other at home: No Do you presently have visiting nurse or other home services: No Alcohol intake: current Alcohol intake frequency: holidays/special occasions only Patient Tobacco Use Status: Never used Tobacco Advance Directives Date on File: 12/27/22 service: No Current occupational status: employed Current occupation: [employer] Review of Systems Const All systems reviewed & are unremarkable except as noted in HPI and below Physical Exam Extrem Other: Left shoulder incision clean dry and intact no erythema or drainage. Forward flexion to 110 degrees. External rotation to 90. Internal rotation to back pocket. Neurovascularly intact. Results Reviewed Results Reviewed: Brief Operative Note Date of Service: 09/14/23 Pre-op diagnosis: Left shoulder impingement syndrome, left shoulder acromioclavicular joint arthritis, left shoulder adhesive capsulitis Post-op diagnosis: same Procedure: Left shoulder diagnostic arthroscopy with left shoulder arthroscopic distal clavicle excision, left shoulder arthroscopic acromioplasty, left shoulder arthroscopic anterior capsular release, left shoulder manipulation under anesthesia Implants: none Surgeon: Eddie Lawler MD Assessment & Plan Assessment & Plan (1) Impingement syndrome of left shoulder: Code(s): M75.42 - Impingement syndrome of left shoulder Plan: Sutures removed today Steri-Strips were applied. We discussed the importance of physical therapy to work on range of motion and periscapular stabilization along with rotator cuff strengthening. He would like to hold off on this today as he has been working on exercises at home. He can resume driving. Will return to work on October 01 with modified duty.He will return in [address] Lawler soonlyndsay if needed. Coding Level of Care Code Global (57147) Diagnoses Impingement syndrome of left shoulder M75.42
== END 2023-09-27 11:49 | disposition home or self-care (01) ==
PROVIDERS: PCP Internal Medicine; Visit Provider Physician Assistant
DX: M75.42 Impingement syndrome of left shoulder (principal)
CPT/HCPCS: 99024

== ENCOUNTER → 2023-09-27 11:17 | Outpatient (BNVA) | payer OTHER, SELFPAY | PROVIDERS: PCP Internal Medicine; Visit Provider Physician Assistant | DX: M75.42 Impingement syndrome of left shoulder (principal) | CPT/HCPCS: 99212 ==

== ENCOUNTER 2023-10-05 13:11 | Outpatient (REF) | payer OTHER, SELFPAY | END 2023-10-05 13:12 | disposition home or self-care (01) | LOC: HO.HOSX 13:11 | PROVIDERS: Visit Provider Physician Assistant | DX: Z13.89 Encounter for screening for other disorder (principal) ==

== ENCOUNTER 2023-10-10 08:43 | Outpatient (REF) | payer OTHER, SELFPAY ==
--- NOTE | ~2023-10-10 | XR_ITS ---
EXAMINATION: XR LUMBOSACRAL SPINE WITH OBLIQUES CLINICAL INFORMATION: Follow-up arthrodesis. COMPARISON: Radiographs dated 02/08/2023. TECHNIQUE: AP and lateral (neutral, flexion and extension) views of the lumbosacral spine are submitted. FINDINGS: There is bony demineralization. There has been a prior posterior fusion and discectomy at L4-L5, with intact posterior fixator rods, pedicular screws and disc spacer. No hardware failure or loosening is seen. The remaining disc spaces are well-maintained. There is no acute fracture or spondylolisthesis. There is no instability with flexion or extension. This multi-level mild lumbar spondylosis. The posterior elements are intact. There are right upper quadrant surgical clips. XR/XR lumbar spine 4V min IMPRESSION: There is well-maintained alignment status-post L4-L5 posterior fusion and discectomy. No hardware failure loosening is seen. There is no instability with flexion or extension.
== END 2023-10-10 08:44 | disposition home or self-care (01) ==
LOC: HO.HOSX 08:43
PROVIDERS: Visit Provider Physician Assistant
DX: Z98.1 Arthrodesis status (principal)
CPT/HCPCS: 72110

== ENCOUNTER 2023-10-25 11:21 | Outpatient (AMB) | payer OTHER, SELFPAY ==
--- NOTE | 2023-10-25 11:40 | MHC.OFFVIS ---
Intake Intake Visit Reasons: po- Left shoulder 09/14/23 Intake Note: Nick is a 62 year old male who presents for his post operative appointment s/p Left shoulder 09/14/2023 Patient reports he is feeling ok he some pain with certain movements and he is having some numbness in his Left index finger. He would like to keep the same weight restrictions for work because he doesn't feel ready for more then 20 lbs. He would like to have a refill of his ibuprophen 800. Allergies bee pollen [BEE STINGS] Allergy (Severe, Verified 10/25/23 11:47) SWELLING and facial swelling Sulfa (Sulfonamide Antibiotics) [SULFA (SULFONAMIDE ANTIBIOTICS)] Allergy (Severe, Verified 10/25/23 11:47) swelling, hives prednisone Allergy (Verified 10/25/23 11:47) heart palpitation, raises glucose levels adhesive Adverse Reaction (Intermediate, Verified 10/25/23 11:47) Rash Medication List - Last Reconciled 10/25/23 by Eddie Lawler MD acetaminophen 500 mg PO Q6H PRN albuterol sulfate 90 mcg/actuation 2 puffs inhalation Q4-6H PRN atorvastatin 40 mg PO DAILY benzonatate 100 mg PO TID PRN blood sugar diagnostic As directed cane As directed cholecalciferol (vitamin D3) 25 mcg PO DAILY coenzyme Q10 (CoQ-10) 100 mg PO DAILY fluticasone propionate 50 mcg/actuation (Flonase Allergy Relief) 2 sprays intranasal DAILY gabapentin 300 mg TID glipizide 5 mg PO DAILY hydromorphone (Dilaudid) 4 mg (2 x 2 mg) PO Q4H PRN insulin aspart U-100 (Novolog FlexPen U-100 Insulin aspart) subcut TID insulin glargine (Lantus Solostar U-100 Insulin) 50 - 55 units subcut BEDTIME insulin syringe-needle U-100 As directed lisinopril 20 mg QAM mecobalamin (vitamin B12) 1,000 mcg sublingual DAILY pen needle, diabetic As directed pitavastatin calcium (Livalo) 2 mg PO DAILY Shower Chair As directed sitagliptin phosphate (Januvia) 100 mg PO DAILY sitagliptin phosphate 100 mg PO DAILY tizanidine 4 mg PO Q6-8H PRN tramadol 50 mg PO BID PRN PFSH Medical History Chronic pain syndrome Personal history of COVID-19 Hx of renal calculi Elevated cholesterol HTN (hypertension) Seasonal allergies Deaf Diabetes Surgical History History of lumbar surgery (12/25/22) S/P placement of nerve stimulator Hx of cholecystectomy History of right inguinal hernia repair (~12/29/19) History of lithotripsy History of bilateral inguinal hernia repair Family History Mother History of lung cancer Social History Household Members: Spouse and Family Housing: Apartment Are you a primary coronary care unit nurse to a significant other at home: No Do you presently have visiting nurse or other home services: No Alcohol intake: current Alcohol intake frequency: holidays/special occasions only Patient Tobacco Use Status: Never used Tobacco Advance Directives Date on File: 12/27/22 service: No Current occupational status: employed Current occupation: [employer] Physical Exam Extrem Other: Left shoulder examination shows almost full range of motion when compared to his right shoulder, mild discomfort with resisted forward flexion, minimal discomfort with resisted internal or external rotation Assessment & Plan Assessment & Plan (1) Left shoulder pain: Code(s): M25.512 - Pain in left shoulder Plan: Mr. Escobar continues to do well after undergoing left shoulder arthroscopic surgery on 09/14/2023. He will continue with his range of motion exercises to prevent stiffness. I will continue him on his current work lifting restrictions until his next appointment in 6 weeks. Feel free to call me at any time should questions regarding his orthopedic management arise. Medications: New ibuprofen 800 mg PO Q8H PRN 90 tabs 2RF pain Coding Level of Care Code Global (78919) Diagnoses Left shoulder pain M25.512
== END 2023-10-25 12:00 | disposition home or self-care (01) ==
PROVIDERS: PCP Internal Medicine; Visit Provider Orthopaedic Surgery
DX: M25.512 Pain in left shoulder (principal)
CPT/HCPCS: 99024

== ENCOUNTER → 2023-10-25 11:21 | Outpatient (BNVA) | payer OTHER, SELFPAY | PROVIDERS: PCP Internal Medicine; Visit Provider Orthopaedic Surgery | DX: M25.512 Pain in left shoulder (principal) | CPT/HCPCS: 99212 ==

== ENCOUNTER 2023-10-31 11:06 | Outpatient (AMB) | payer OTHER, SELFPAY ==
--- NOTE | 2023-10-31 11:12 | MHC.OFFVIS ---
Intake Vital Signs 10/31/23 11:59 Height 5 ft 8 in Weight 212 lb BMI 32.2 BP 140/70 H Blood Pressure Location Lt brachial Position Sitting Respiration 14 Pulse 69 Pulse Source Pulse Oximeter Pulse Oximetry (%) 97 Oxygen Delivery Method Room Air Intake Visit Reasons: POST LAMINECTOMY SYNDROME/LVM Intake Note: Reports pain 0/10. Allergies bee pollen [BEE STINGS] Allergy (Severe, Verified 10/25/23 11:47) SWELLING and facial swelling Sulfa (Sulfonamide Antibiotics) [SULFA (SULFONAMIDE ANTIBIOTICS)] Allergy (Severe, Verified 10/25/23 11:47) swelling, hives prednisone Allergy (Verified 10/25/23 11:47) heart palpitation, raises glucose levels adhesive Adverse Reaction (Intermediate, Verified 10/25/23 11:47) Rash HPI POST LAMINECTOMY SYNDROME/LVM HPI Details The patient had conversation with me using spanish interpreter online. HPI Comments History of Present Illness Details Nick is back in my office with request to prescribe him motorized scooter on motorized wheelchair. He reports 0 pain when he is resting on the chair. However he reports that his pain starts to get much higher when he attempts to walk. He is on disability. He is working part-time with [employer]. He is suffering from postlaminectomy syndrome, for the treatment of postlaminectomy syndrome he was given spinal cord stimulator Nevro however he claimed that it never helped his pain. The spinal cord stimulator eventually was removed on his insistence. Prior: the pain started sometime in August while at work. He denies having this pain previously. 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 He reports his pain radiates across the low back and down bilateral legs posteriorly to his knee. He was referred to Dr. Pastor for evaluation. Meanwhile we performed bilateral transforaminal L4-5 epidural steroid injection. He reports excellent pain relief for 2 weeks. He is not satisfied with injection. I discussed with him possibility of treating his condition with spinal cord stimulator. Dr. Pastor was examining him in the past and did not offer him any treatment for his foraminal stenosis. He completed about 8 sessions of PT recently and was discharged as his symptoms were not improving. Denies any chiropractic manipulation, massage or acupuncture. Denies any previous back injections or surgery. He had a recent lumbar spine MRI and the report is dictated below. [facility] Medical History Chronic pain syndrome Personal history of COVID-19 Hx of renal calculi Elevated cholesterol HTN (hypertension) Seasonal allergies Deaf Diabetes Surgical History History of lumbar surgery (12/25/22) S/P placement of nerve stimulator Hx of cholecystectomy History of right inguinal hernia repair (~12/29/19) History of lithotripsy History of bilateral inguinal hernia repair Family History Mother History of lung cancer Social History Household Members: Spouse and Family Housing: Apartment Are you a primary child care counselor to a significant other at home: No Do you presently have visiting nurse or other home services: No Alcohol intake: current Alcohol intake frequency: holidays/special occasions only Patient Tobacco Use Status: Never used Tobacco Advance Directives Date on File: 12/27/22 service: No Current occupational status: employed Current occupation: [employer] Review of Systems Const All systems reviewed & are unremarkable except as noted in HPI and below Physical Exam Vital Signs: Last Vital Signs Pulse 69 10/31/23 11:59 Resp 14 10/31/23 11:59 BP 140/70 H 10/31/23 11:59 Pulse Ox 97 10/31/23 11:59 Oxygen Delivery Method Room Air 10/31/23 11:59 BMI result Body Mass Index 32.2 Const Nutritional Appearance: overweight Limitations: no limitations Neck Neck: Yes normal visual inspection and Yes full ROM Chest Chest palpation & inspection: normal inspection of the chest Resp Effort & Inspection: normal respiratory effort, no audible wheezes, no cough, respiratory effort not decreased, no grunting and not labored Cardio Jugular venous distension: no JVD Back/Spine/Pelvis Thoracic/Lumbar Spine: thoracic and lumbar spine normal to inspection, No Thoracic/lumbar spine scar(s), straight leg raise negative bilaterally, pain with thoraco-lumbar ROM, No paraspinal muscle tenderness, thoraco-lumbar ROM limited, thoracic spinal tenderness and lumbar spinal tenderness at L4 and at L5 Assessment & Plan Assessment & Plan (1) Spondylosis of lumbosacral spine with radiculopathy: Code(s): M47.27 - Other spondylosis with radiculopathy, lumbosacral region (2) Lumbar facet arthropathy: Code(s): M47.816 - Spondylosis without myelopathy or radiculopathy, lumbar region (3) Chronic pain syndrome: Code(s): G89.4 - Chronic pain syndrome (4) Neurogenic claudication: Code(s): G95.19 - Other vascular myelopathies (5) Neurogenic claudication due to lumbar spinal stenosis: Code(s): M48.062 - Spinal stenosis, lumbar region with neurogenic claudication Plan His pain remained 0 when he sits in the chair. Was walking his pain quickly increases in unbearable levels. He is suffering postlaminectomy syndrome. Prescription for motorized scooter/motorized chair is written for the patient. Next appointment is as needed. Coding Level of Care Code Est Pt Level 3 (33935) Diagnoses Spondylosis of lumbosacral spine with radiculopathy M47.27 Lumbar facet arthropathy M47.816 Chronic pain syndrome G89.4 Neurogenic claudication G95.19 Neurogenic claudication due to lumbar spinal stenosis M48.062
[2023-10-31 11:59] VITALS: BP 140/70; PULSE 69; RESP 14; O2SAT 97; BMI 32.2
== END 2023-10-31 11:51 | disposition home or self-care (01) ==
PROVIDERS: PCP Internal Medicine; Visit Provider Anesthesiology
DX: M47.27 Other spondylosis with radiculopathy, lumbosacral region (principal); M47.816 Spondylosis without myelopathy or radiculopathy, lumbar region; G89.4 Chronic pain syndrome; G95.19 Other vascular myelopathies; M48.062 Spinal stenosis, lumbar region with neurogenic claudication
CPT/HCPCS: 99213

== ENCOUNTER → 2023-10-31 11:06 | Outpatient (BNVA) | payer OTHER, SELFPAY | PROVIDERS: PCP Internal Medicine; Visit Provider Anesthesiology | DX: M47.27 Other spondylosis with radiculopathy, lumbosacral region (principal); M47.816 Spondylosis without myelopathy or radiculopathy, lumbar region; G89.4 Chronic pain syndrome; G95.19 Other vascular myelopathies; M48.062 Spinal stenosis, lumbar region with neurogenic claudication | CPT/HCPCS: 99212 ==

== ENCOUNTER → 2023-11-14 10:40 | Outpatient (REF) | payer OTHER, SELFPAY ==
--- NOTE | 2023-11-14 10:47 | HM_ITS ---
* Total monitoring time about 2 days. * Underlying rhythm is sinus with an average rate of 69/Min. Range 51 to 116/Min. * Rare supraventricular ectopy. Very brief runs. * Rare ventricular ectopy. * No significant pauses or AV blocks. * No patient markers or diary events. MTDD
== END ==
LOC: HO.CARD 10:40
PROVIDERS: Visit Provider Internal Medicine
DX: R00.2 Palpitations (principal)
CPT/HCPCS: 93225

== ENCOUNTER → 2023-11-14 10:47 | Outpatient (BNV) | payer OTHER, SELFPAY | PROVIDERS: Visit Provider Internal Medicine | DX: R00.2 Palpitations (principal) | CPT/HCPCS: 93227 ==

== ENCOUNTER 2023-12-06 11:34 | Outpatient (AMB) | payer OTHER, SELFPAY ==
--- NOTE | 2023-12-06 11:40 | MHC.OFFVIS ---
Intake Visit Reasons: po-Left shoulder 09/14/23, Numbness of left hand Intake Note: Nick is a 63 year old male who present for a follow up after his Left shoulder on 09/14/2023. The patient reports continued mild to moderate discomfort in his left shoulder. He continues with his home stretching program. He denies any fevers or chills. Today the patient is most concerned with numbness and tingling along his left index finger and thumb. The patient states that his symptoms have gotten worse over the last few months. Project Estimator Name: [id number] Allergies bee pollen [BEE STINGS] Allergy (Severe, Verified 12/06/23 12:03) SWELLING and facial swelling Sulfa (Sulfonamide Antibiotics) [SULFA (SULFONAMIDE ANTIBIOTICS)] Allergy (Severe, Verified 12/06/23 12:03) swelling, hives prednisone Allergy (Verified 12/06/23 12:03) heart palpitation, raises glucose levels adhesive Adverse Reaction (Intermediate, Verified 12/06/23 12:03) Rash Medication List - Last Reconciled 12/06/23 by Eddie Lawler MD acetaminophen 500 mg PO Q6H PRN albuterol sulfate 90 mcg/actuation 2 puffs inhalation Q4-6H PRN atorvastatin 40 mg PO DAILY benzonatate 100 mg PO TID PRN blood sugar diagnostic As directed cane As directed cholecalciferol (vitamin D3) 25 mcg PO DAILY coenzyme Q10 (CoQ-10) 100 mg PO DAILY fluticasone propionate 50 mcg/actuation (Flonase Allergy Relief) 2 sprays intranasal DAILY gabapentin 300 mg TID glipizide 5 mg PO DAILY hydromorphone (Dilaudid) 4 mg (2 x 2 mg) PO Q4H PRN ibuprofen 800 mg PO Q8H PRN insulin aspart U-100 (Novolog FlexPen U-100 Insulin aspart) subcut TID insulin glargine (Lantus Solostar U-100 Insulin) 50 - 55 units subcut BEDTIME insulin syringe-needle U-100 As directed lisinopril 20 mg QAM mecobalamin (vitamin B12) 1,000 mcg sublingual DAILY pen needle, diabetic As directed pitavastatin calcium (Livalo) 2 mg PO DAILY Shower Chair As directed sitagliptin phosphate (Januvia) 100 mg PO DAILY sitagliptin phosphate 100 mg PO DAILY tizanidine 4 mg PO Q6-8H PRN tramadol 50 mg PO BID PRN PFSH Medical History Chronic pain syndrome Personal history of COVID-19 Hx of renal calculi Elevated cholesterol HTN (hypertension) Seasonal allergies Deaf Diabetes Surgical History History of lumbar surgery (12/25/22) S/P placement of nerve stimulator Hx of cholecystectomy History of right inguinal hernia repair (~12/29/19) History of lithotripsy History of bilateral inguinal hernia repair Family History Mother History of lung cancer Social History Household Members: Spouse and Family Housing: Apartment Are you a primary health care facilities inspector to a significant other at home: No Do you presently have visiting nurse or other home services: No Alcohol intake: current Alcohol intake frequency: holidays/special occasions only Patient Tobacco Use Status: Never used Tobacco Advance Directives Date on File: 12/27/22 service: No Current occupational status: employed Current occupation: [employer] Physical Exam Const Other: Well-nourished well-developed very friendly male awake alert and oriented x3 in no acute distress Extrem Other: Left shoulder examination shows that the surgical incisions are well healed, no erythema, slightly decreased range of motion when compared to his right shoulder, mild discomfort with resisted forward flexion Left hand examination shows positive Tinel's test over his carpal tunnel, mild thenar muscle wasting, decreased sensation to light touch along his median nerve distribution Assessment & Plan Assessment & Plan (1) Carpal tunnel syndrome of left wrist: Code(s): G56.02 - Carpal tunnel syndrome, left upper limb Category: Medical (2) Numbness of left hand: Code(s): R20.0 - Anesthesia of skin Plan Mr. Escobar continues to do fairly well after undergoing left shoulder arthroscopic surgery on 09/14/2023. Does have progressively worsening numbness and tingling in his left thumb and index finger possibly due to carpal tunnel syndrome. Thus, I will send the patient for EMG evaluation. I will see him back once the EMG is completed to discuss the findings and treatment options. Feel free to call me at any time should questions regarding his orthopedic management arise. I spent 22 minutes in reviewing the patient's records and imaging studies, seeing the patient and documenting in the medical record. Orders: Orders NE electromyogram (EMG) 12/06/23 G56.02 - Carpal tunnel syndrome, left upper limb Medications: Changed From hydromorphone (Dilaudid) Partial Fill upon patient request. 4 mg (2 x 2 mg) PO Q4H PRN 40 tabs 0RF pain To hydromorphone (Dilaudid) Partial Fill upon patient request. 2 mg PO Q12H PRN 14 tabs 0RF pain
== END 2023-12-06 14:31 | disposition home or self-care (01) ==
PROVIDERS: PCP Internal Medicine; Visit Provider Orthopaedic Surgery
DX: G56.02 Carpal tunnel syndrome, left upper limb (principal); R20.0 Anesthesia of skin
CPT/HCPCS: 99214

== ENCOUNTER → 2023-12-06 11:34 | Outpatient (BNVA) | payer OTHER, SELFPAY | PROVIDERS: PCP Internal Medicine; Visit Provider Orthopaedic Surgery | DX: G56.02 Carpal tunnel syndrome, left upper limb (principal); R20.0 Anesthesia of skin; Z96.82 Presence of neurostimulator | CPT/HCPCS: 99212 ==

== ENCOUNTER 2023-12-21 10:17 | Outpatient (REF) | payer OTHER, SELFPAY ==
--- NOTE | 2023-12-21 10:21 | EMG_ITS ---
Chief complaint: Left hand numbness Reason for referral: Evaluate for Carpal Tunnel Syndrome Referred by: Dr. Lawler Procedure done: Left upper extremity NCS/EMG Precautions and/or limitations: Hearing impaired, seen with blockmason. The limb temperature was monitored continuously and remained between 32-36 degrees C during the performance of the NCS. Nerve Conduction Studies Anti Sensory Summary Table ?Stim Site NR Onset (ms) Norm Onset (ms) Peak (ms) Norm Peak (ms) O-P Amp (?V) Norm O-P Amp Site1 Site2 Delta-0 (ms) Dist (cm) Manjeet (m/s) Norm Manjeet (m/s) Left Median Anti Sensory (2nd Digit) Wrist ? 3.9 4.8 <3.6 10.5 >10 Wrist 2nd Digit 3.9 14.0 36 Left Radial Anti Sensory (Thumb) Forearm ? 1.8 2.4 <3.1 12.7 Forearm Thumb 1.8 0.0 Left Ulnar Anti Sensory (5th Digit) Wrist ? 2.5 3.1 <3.7 12.4 >15.0 Wrist 5th Digit 2.5 14.0 56 Motor Summary Table ?Stim Site NR Onset (ms) Norm Onset (ms) O-P Amp (mV) Norm O-P Amp iAmp (mV) Amp (1st) (%) Site1 Site2 Delta-0 (ms) Dist (cm) Manjeet (m/s) Norm Manjeet (m/s) Left Median Motor (Abd Poll Brev) Wrist ? 5.1 <3.9 6.2 >4.5 7.5 100.0 Elbow Wrist 4.4 22.0 50 >45 Elbow ? 9.5 7.3 8.6 117.7 Left Ulnar Motor (Abd Dig Minimi) Wrist ? 2.4 <3.0 5.5 >5 7.7 100.0 B Elbow Wrist 4.1 21.0 51 >45 B Elbow ? 6.5 5.0 7.5 90.9 A Elbow B Elbow 1.9 10.0 53 >45 A Elbow ? 8.4 4.6 6.9 83.6 EMG ?Side Muscle Nerve Root Ins Act Fibs Psw Amp Dur Poly Recrt Int Pat Comment Left 1stDorInt Ulnar C8-T1 Nml Nml Nml Nml Nml 0 Nml Complete Left FlexCarRad Median C6-7 Nml Nml Nml Nml Nml 0 Nml Complete Left Biceps Musculocut C5-6 Nml Nml Nml Nml Nml 0 Nml Complete Left Triceps Radial C6-7-8 Nml Nml Nml Nml Nml 0 Nml Complete Left Deltoid Axillary C5-6 Nml Nml Nml Nml Nml 0 Nml Complete FINDINGS: Left median motor nerve showed prolonged distal latency, normal amplitude and normal conduction velocity. Left median sensory nerve showed prolonged peak latency. All other nerves tested were within normal. Concentric needle EMG was performed in selected muscles of the left upper extremity. Study did not reveal signs of electric abnormalities as shown in the table below. IMPRESSION: 1. This is an abnormal study. 2. There is electrodiagnostic evidence for left moderate-severe median neuropathy at the wrist, consistent with carpal tunnel syndrome. 3. There is no electrodiagnostic evidence for ulnar neuropathy, brachial plexopathy, or cervical radiculopathy. Thank you for your kind referral. Lina Nieves MD, SRIKANTH Board Certified, [place] Board [employer] Physical Medicine and Rehabilitation (ABPMR) Board Certified, [place] Board of Electrodiagnostic Medicine (ABEM) CODIN [id number] MTDD
== END 2023-12-21 10:18 | disposition home or self-care (01) ==
LOC: HO.NEURO 10:17
PROVIDERS: PCP Internal Medicine; Visit Provider Orthopaedic Surgery
DX: G56.02 Carpal tunnel syndrome, left upper limb (principal)
CPT/HCPCS: 95886; 95909

== ENCOUNTER → 2023-12-21 10:21 | Outpatient (BNV) | payer OTHER, SELFPAY | PROVIDERS: PCP Internal Medicine; Visit Provider Physical Medicine & Rehabilitation | DX: G56.02 Carpal tunnel syndrome, left upper limb (principal) | CPT/HCPCS: 95886; 95909 ==

== ENCOUNTER 2024-01-22 09:40 | Outpatient (AMB) | payer OTHER, SELFPAY ==
--- NOTE | 2024-01-22 09:58 | A.OFFVIS_ITS ---
Vital Signs 01/22/24 10:04 Height 5 ft 8 in Weight 212 lb BMI 32.2 Intake Visit Reasons: OV- Left carpal tunnel Intake Note: Nick 63 year old left hand dominant male who is hearing impaired presents today s/p EMG study to review and discuss results for left hand. Patient reports numbness and tingling for 3 months. Difficulty with bending his index finger. He would like to discuss surgical intervention. Last seen with Dr. Lawler who ordered EMG study. He also complains of left shoulder pain with ROM. Allergies bee pollen [BEE STINGS] Allergy (Severe, Verified 01/22/24 10:06) SWELLING and facial swelling Sulfa (Sulfonamide Antibiotics) [SULFA (SULFONAMIDE ANTIBIOTICS)] Allergy (Severe, Verified 01/22/24 10:06) swelling, hives prednisone Allergy (Verified 01/22/24 10:06) heart palpitation, raises glucose levels adhesive Adverse Reaction (Intermediate, Verified 01/22/24 10:06) Rash HPI HPI OV- Left carpal tunnel : Details: Nick is a 63 year old right hand dominant man, who is hearing impaired, presenting for a NCS review of his left hand numbness. An heat and vent aircraft mechanic was used today in clinic. He complains of numbness in the thumb, index, and middle fingers of his left hand for ~3 months. Symptoms constant in the thumb and index finger, and worse at night He also complains of some difficulty bending his let index finger. He also complains of painful locking of his index finger at times. He complains of left shoulder pain with ROM, he is S/P left shoulder , DOS: 09/14/[address] Lawler. He has CPS & is seen by Pain Management for this, he also takes Dilauded for pain relief. He is a Diabetic, he says this is well-controlled. 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 [facility] Medical History Chronic pain syndrome Personal history of COVID-19 Hx of renal calculi Elevated cholesterol HTN (hypertension) Seasonal allergies Deaf Diabetes Surgical History History of lumbar surgery (12/25/22) S/P placement of nerve stimulator Hx of cholecystectomy History of right inguinal hernia repair (~12/29/19) History of lithotripsy History of bilateral inguinal hernia repair Family History Mother History of lung cancer Social History Household Members: Spouse and Family Housing: Apartment Are you a primary daytime caregiver to a significant other at home: No Do you presently have visiting nurse or other home services: No Alcohol intake: current Alcohol intake frequency: holidays/special occasions only Patient Tobacco Use Status: Never used Tobacco Advance Directives Date on File: 12/27/22 service: No Current occupational status: employed Current occupation: [employer] All systems reviewed & are unremarkable except as noted in HPI and below Physical Exam Vital Signs: BMI result Body Mass Index 32.2 Const General: cooperative, healthy appearing and no acute distress Orientation/consciousness: patient oriented x3 HEENT Head: Yes normocephalic and Yes atraumatic Eyes EOM: EOMs intact bilaterally Resp Effort & Inspection: normal respiratory effort and able to speak in complete sentences Cardio Jugular venous distension: no JVD Skin General skin exam: turgor normal Rashes: no rashes Neuro General: patient oriented x3 Extrem Other: Evaluation of Left Upper Extremity: The patient is alert, oriented, and in no acute distress Neuro: Dense numbness in the median nerve distribution. Normal sensation in the ulnar nerve distribution No thenar or intrinsic wasting Good APB muscle belly firing and good finger cross Vascular: Cap refill brisk ROM: He can make a fist and extend all his digits Visible and palpable locking & catching of the index finger Tender over the index finger a1 bang Skin: No lacerations or abrasions. General: No Ecchymosis. No Erythema or evidence of infection. Nerve Conduction Study: Left side only IMPRESSION: 1. This is an abnormal study. 2. There is electrodiagnostic evidence for left moderate-severe median neuropathy at the wrist, consistent with carpal tunnel syndrome. 3. There is no electrodiagnostic evidence for ulnar neuropathy, brachial plexopathy, or cervical radiculopathy. Lina Nieves MD, SRIKANTH 12/21/23 Psych Appearance: grossly normal Affect: normal affect Attitude: cooperative Assessment & Plan Assessment & Plan (1) Carpal tunnel syndrome of left wrist: Code(s): G56.02 - Carpal tunnel syndrome, left upper limb Category: Medical (2) Trigger finger, left index finger: Code(s): M65.322 - Trigger finger, left index finger Category: Medical (3) Chronic pain syndrome: Code(s): G89.4 - Chronic pain syndrome Category: Medical (4) Diabetes: Code(s): E11.9 - Type 2 diabetes mellitus without complications Category: Medical (5) Deaf: Code(s): H91.90 - Unspecified hearing loss, unspecified ear Category: Medical Plan Assessment & Plan: 1. Left Carpal tunnel syndrome, moderate-severe With dense numbness 2. Left index finger trigger finger This patient is hearing impaired and requires the use of an heat and vent aircraft mechanic I educated him about these conditions I discussed operative and non-operative treatment options The patient would like to proceed with surgery The risks and benefits of operative treatment were discussed with the patient and the patient wishes to proceed with surgery. These risks include, but are not limited to risk of damage to blood vessels, nerves, tendons, infection, recurrence, incomplete relief of preoperative symptoms, persistent pain, possible need for further surgery and the risks associated with regional blocks and anesthesia. The plan is to take the patient to the operating room sometime in the next few weeks for the following procedures: 1. Left carpal tunnel release, under local 1. Left index finger trigger release, under local All of the preoperative paperwork including the consent was reviewed today. All the patient's questions were answered. The patient understands that they will be contacted by our clocksmith soon to schedule this procedure He denies blood thinners, asthma, heart, lung, kidney issues He is a Diabetic, he says this is well controlled and he believes his last HgA1c was <7.0%. They will need an updated HgA1c that is <8.1% in order to proceed with surgery, and they expressed understanding He has a Hx of CPS, he is on Dilauded and sees Pain management for this 3. Left shoulder pain, S/P Arthroscopy DOS: 09/14/[address] Lawler He complains of shoulder pain with ROM I advised him to follow up with Dr. Lawler for this Scribed for Brittanie Stevens MD by Bertin Palomo, medical record librarian, on 01/22/24 at 10:25 AM, EST. Coding Level of Care Code New Pt Level 4 (80167) Diagnoses Carpal tunnel syndrome of left wrist G56.02 Trigger finger, left index finger M65.322 Chronic pain syndrome G89.4 Diabetes E11.9 Deaf H91.90
[2024-01-22 10:04] VITALS: BMI 32.2
== END 2024-01-22 11:24 | disposition home or self-care (01) ==
PROVIDERS: PCP Internal Medicine; Visit Provider Orthopaedic Surgery
DX: G56.02 Carpal tunnel syndrome, left upper limb (principal); M65.322 Trigger finger, left index finger; G89.4 Chronic pain syndrome; E11.9 Type 2 diabetes mellitus without complications; H91.90 Unspecified hearing loss, unspecified ear
CPT/HCPCS: 99214

== ENCOUNTER → 2024-01-22 09:40 | Outpatient (BNVA) | payer MEDICARE, SELFPAY | PROVIDERS: PCP Internal Medicine; Visit Provider Orthopaedic Surgery | DX: G56.02 Carpal tunnel syndrome, left upper limb (principal); M65.322 Trigger finger, left index finger; G89.4 Chronic pain syndrome; E11.9 Type 2 diabetes mellitus without complications; H91.90 Unspecified hearing loss, unspecified ear | CPT/HCPCS: 99212 ==

== ENCOUNTER 2024-03-11 13:43 | Outpatient (AMB) | payer OTHER, MEDICAID, SELFPAY ==
--- NOTE | 2024-03-11 13:56 | MHC.OFFVIS ---
Vital Signs 03/11/24 14:11 Height 5 ft 8 in Weight 198 lb 13.711 oz BMI 30.2 BP 148/70 H Blood Pressure Location Rt brachial Position Sitting Pulse 66 Pulse Source Pulse Oximeter Pulse Oximetry (%) 97 Oxygen Delivery Method Room Air Intake Visit Reasons: Colonoscopy Screening Intake Note: Nick presents in office today for a scheduled colo s/p scrn CC; Pt recently had a positive cologuard result. Pt reports that he has been experiencing some constipation and difficulty with bowel movements. Pt reports that he can often go about 2-3 days without having any movement. Pt reports that he often become dizzy prior to having a bowel movement. Pt also reports that it often is accompanied by a very foul odor. Pt has also noticed that he has intermittent abdominal pain which may be triggered by certain foods. Pt reports having previous hx of colo s/p, approximately 10 years ago. No pertinent findings. Global Position System Technician Required: Yes Global Position System Technician Services: Global Position System Technician Present Global Position System Technician Name: [id number] Information Interpreted: non-clinical & clinical Accompanied by: Significant Other Allergies bee pollen [BEE STINGS] Allergy (Severe, Verified 03/11/24 14:08) SWELLING and facial swelling Sulfa (Sulfonamide Antibiotics) [SULFA (SULFONAMIDE ANTIBIOTICS)] Allergy (Severe, Verified 03/11/24 14:08) swelling, hives prednisone Allergy (Verified 03/11/24 14:08) heart palpitation, raises glucose levels adhesive Adverse Reaction (Intermediate, Verified 03/11/24 14:08) Rash HPI HPI Colonoscopy Screening: Details: 63 year old? male with past medical history of lumbar stenosis, diabetes, hypercholesteremia, hypertension is here today for pre colonoscopy screening.? Recent positive Cologuard results. Colonoscopy over 10 years ago.? Patient denies any gastrointestinal symptoms in the past or at present.? However patient does admit to be constipated and not always moving his bowels daily. Patient denies any melena, hematochezia, unintentional weight loss or ribbon like stools. Denies any personal or family history of gastrointestinal disease, colon polyps, or CRC.? Denies history of difficulty with sedation or anesthesia in the past.? Negative for history of sleep apnea.? Denies any history of cardiac, renal, pulmonary, or hepatic disease.?? No history of infectious? diseases like hepatitis A, B, C, HIV or tuberculosis.? Patient is not on any anticoagulation [facility] Medical History Chronic pain syndrome Personal history of COVID-19 Hx of renal calculi Elevated cholesterol HTN (hypertension) Seasonal allergies Deaf Diabetes Surgical History History of lumbar surgery (12/25/22) S/P placement of nerve stimulator Hx of cholecystectomy History of right inguinal hernia repair (~12/29/19) History of lithotripsy History of bilateral inguinal hernia repair Family History Mother History of lung cancer Social History Household Members: Spouse and Family Housing: Apartment Are you a primary housekeeper caregiver to a significant other at home: No Do you presently have visiting nurse or other home services: No Alcohol intake: current Alcohol intake frequency: holidays/special occasions only Patient Tobacco Use Status: Never used Tobacco Advance Directives Date on File: 12/27/22 service: No Current occupational status: employed Current occupation: [employer] Const Denies weight gain and Denies weight loss ENT Reports no additional complaints, Denies dysphagia and Denies odynophagia Card Reports no additional complaints Resp Reports no additional complaints GI Denies abdominal pain, Denies belching, Denies melena, Denies bloating, Denies change in bowel habits, Reports constipation, Denies dysphagia, Denies excessive flatus, Denies dyspepsia, Denies heartburn, Reports diarrhea, Denies loose stools, Denies nausea, Denies odynophagia and Denies vomiting Reports no additional complaints Musc Reports no additional complaints Neuro Reports no additional complaints Psych Reports no additional complaints Endo Reports no additional complaints Physical Exam Vital Signs: Last Vital Signs Pulse 66 03/11/24 14:11 BP 148/70 H 03/11/24 14:11 Pulse Ox 97 03/11/24 14:11 Oxygen Delivery Method Room Air 03/11/24 14:11 BMI result Body Mass Index 30.2 Const General: healthy appearing and no acute distress Nutritional Appearance: obese Orientation/consciousness: patient oriented x3 Resp Effort & Inspection: normal respiratory effort, able to speak in complete sentences, no tracheal deviation and symmetric chest movement Auscultation: clear to auscultation bilaterally Cardio Rate: regular rate GI Inspection: Yes normal to inspection and No distended Palpation (GI): Soft to palpation, not firm, nontender and No hepatosplenomegaly present Auscultation: normal bowel sounds General: Yes no CVA tenderness Back/Spine/Pelvis Back: no CVA tenderness Skin General skin exam: elasticity normal, turgor normal and dry skin Neuro General: patient oriented x3 Psych Appearance: grossly normal Mental Status: mental status grossly normal Assessment & Plan Assessment & Plan (1) Screen for colon cancer: Code(s): Z12.11 - Encounter for screening for malignant neoplasm of colon (2) Positive colorectal cancer screening using Cologuard test: Code(s): R19.5 - Other fecal abnormalities Plan Patient denies any GI, cardiac or respiratory symptoms.? However patient does admit to be constipated. Patient was encouraged to increase fluid intake and activity to promote better bowel motility as well as try stool softener or MiraLax. Denies any issues with anesthesia in the past.? Denies any history of sleep apnea.? No history infectious diseases in the past or present.? Not on any anticoagulation therapy.? No family or personal history of colon cancer or polyps.? Patient denies melena, hematochezia, unintentional weight loss or ribbon like stools.? Discussed at length the pre-procedure,? prep, diet & medications as well as what to expect prior, during and after the procedure.?? Stressed the importance of good bowel prep.? Recommended the use of Vaseline or Calmoseptine OTC & baby wipes with bowel movements to promote comfort.? ?Patient verbalizes understanding and agrees to plan of care.? He was given the opportunity to ask questions and all questions answered.? We will see him after the procedure.? Medications: New bisacodyl (Dulcolax (bisacodyl)) take 4 tabs at noon the day before your colonoscopy 20 mg (4 x 5 mg) PO ONCE 4 tabs 0RF 1 day Z12.11 - Encounter for screening for malignant neoplasm of colon magnesium citrate Drink one bottle at 17:00 and 2nd bottle at 22:00 296 mL PO ONCE 296 mL 1RF constipation Z12.11 - Encounter for screening for malignant neoplasm of colon Coding Level of Care Code New Pt Level 3 (27306) Diagnoses Screen for colon cancer Z12.11 Positive colorectal cancer screening using Cologuard test R19.5 Time Spent (min) 40 Comment 30 minutes spent with patient and additional 10 minutes spent reviewing his records
[2024-03-11 14:11] VITALS: BP 148/70; PULSE 66; O2SAT 97; BMI 30.2
== END 2024-03-11 14:56 | disposition home or self-care (01) ==
PROVIDERS: PCP Internal Medicine; Visit Provider Nurse Practitioner Family
DX: Z12.11 Encounter for screening for malignant neoplasm of colon (principal); R19.5 Other fecal abnormalities; Z01.818 Encounter for other preprocedural examination
CPT/HCPCS: 99203; 99213

== ENCOUNTER → 2024-03-11 13:43 | Outpatient (BNVA) | payer OTHER, MEDICAID, SELFPAY | PROVIDERS: PCP Internal Medicine; Visit Provider Nurse Practitioner Family ==

== ENCOUNTER 2024-03-27 13:28 | Day surgery (SDC) | payer MEDICARE, MEDICAID, SELFPAY ==
--- NOTE | 2024-03-27 13:35 | P.OP_ITS ---
Operative Note Operative Note Date of Service: 03/27/24 Narrative: Preop diagnosis: 1. Left Carpal tunnel syndrome 2. Left index finger trigger finger Postop diagnosis: same Procedure: 1. Left Carpal tunnel release Left index finger A1 bang release Surgeon: Brittanie Stevens MD Shredder Picker: BRANDON Burleson Anesthesia: local block using 1% lidocaine with epinephrine Findings: Thickened transverse carpal ligament. EBL: Less than 5 mL Specimens: None Complications: None Disposition: Brought to recovery room in stable condition Plan: Follow-up for 10-14 days for wound check and suture removal Indications: The patient is 63 years old, with left carpal tunnel syndrome that has been unresponsive to nonoperative management. The risks and benefits of operative treatment including but not limited to risk of damage to blood vessels, nerves, tendons, infection, persistent pain, persistent symptoms, or possible need for additional surgery were discussed with the patient and the patient wishes to proceed with surgery. Procedure: Once consent was obtained a local block was performed using a combination of 1% lidocaine with epinephrine. The patient was then brought back to the operating suite and placed on the operative table in supine position. The left upper extremity was prepped and draped in a standard surgical fashion. Once assured that we had a good block, a 1.5 cm oblique incision was made centered over the A1 bang of the left index finger . The incision was made through the skin to the subcutaneous tissues using a #15 blade. Careful dissection was made down to the level of the A1 bang using tenotomy scissors, with care being taken to protect the nearby neurovascular structures. A longitudinal incision was made in the A1 bang 1st using a #15 blade, then using tenotomy scissors under direct visualization. The A1 bang was noted to be thickened. Following our A1 bang release, we no longer saw any locking or catching of the digit with flexion and extension. Once assured that we had a good block, a 2.0 cm longitudinal incision was made centered over the carpal tunnel. The incision was made through the skin to the subcutaneous tissues using a #15 blade. Dissection was made down to the level of the transverse carpal ligament with care being taken to protect the palmar cutaneous nerve. Once the transverse carpal ligament was clearly visualized, a longitudinal incision was made in the transverse carpal ligament 1st using a #15 blade, then using tenotomy scissors under direct visualization. Care was taken to look for and protect the motor branch of the median nerve when seen in this area. Once satisfied with our carpal tunnel release the wound was copiously irrigated with normal saline and hemostasis was obtained with a brief period of local pressure. The skin edges were reapproximated with some 5.0 nylon suture material and a sterile dressing was applied. The patient appears to have tolerated the procedure well and with no complications. All digits were well vascularized at the conclusion of the case.
[2024-03-27 14:42] VITALS: BP 145/63; PULSE 62; RESP 16; TEMP 36.7; O2SAT 97; BMI 30.4
--- NOTE | 2024-03-27 16:06 | MHC.SHP ---
Pre-Procedural Eval Section A - 24 Hr Update-Section A only Date of Service: 03/27/24 The patient is an INPATIENT: No Changes since office visit: No Cold of Flu in the past 2 weeks, No New Medical Problems, No Changes in Medication and No Patient answered all questions The patient has been examined within 24 hours of the surgical procedure. The History & Physical has been completed within 30 days and I have reviewed it.: Yes Section B - Complete if H&P > 30 days Chief Complaint: Carpal tunnel syndrome, left upper limb Allergies: Allergies Allergy/AdvReac Type Severity Reaction Status Date / Time bee pollen [BEE STINGS] Allergy Severe SWELLING Verified 03/11/24 14:08 and facial swelling Sulfa (Sulfonamide Allergy Severe swelling, Verified 03/11/24 14:08 Antibiotics) hives [SULFA (SULFONAMIDE ANTIBIOTICS)] prednisone Allergy heart Verified 03/11/24 14:08 palpitation, raises glucose levels adhesive AdvReac Intermediate Rash Verified 03/11/24 14:08 Plan Diagnosis/Plan: Unchanged I have reviewed the history and physical and performed a pertinent physical examination on my patient. No changes have occurred unless specified. Time Spent With Patient Time: Total time managing care of this patient today ____ minutes.
[2024-03-27 16:56] VITALS: BP 164/75; PULSE 72; RESP 16; TEMP 37.1; O2SAT 97
== END 2024-03-27 17:13 | disposition home or self-care (01) ==
PROVIDERS: PCP Internal Medicine; Visit Provider Orthopaedic Surgery
PROC: (CPT 64721; principal; 2024-03-27 15:20)
PROC: (CPT 26055; 2024-03-27 15:20)
DX: G56.02 Carpal tunnel syndrome, left upper limb (principal); M65.322 Trigger finger, left index finger; R20.0 Anesthesia of skin; R20.2 Paresthesia of skin; G89.4 Chronic pain syndrome; I10 Essential (primary) hypertension; E11.9 Type 2 diabetes mellitus without complications; E78.00 Pure hypercholesterolemia, unspecified; H91.90 Unspecified hearing loss, unspecified ear; L23.1 Allergic contact dermatitis due to adhesives; Z88.2 Allergy status to sulfonamides; Z88.5 Allergy status to narcotic agent; Z87.442 Personal history of urinary calculi; J30.2 Other seasonal allergic rhinitis
CPT/HCPCS: 64721; 26055; J0171

== ENCOUNTER → 2024-03-27 13:28 | Outpatient (BNV) | payer MEDICARE, SELFPAY | PROVIDERS: PCP Internal Medicine; Visit Provider Orthopaedic Surgery | DX: G56.02 Carpal tunnel syndrome, left upper limb (principal); M65.322 Trigger finger, left index finger | CPT/HCPCS: 26055; 64721 ==

== ENCOUNTER 2024-04-09 14:12 | Outpatient (AMB) | payer OTHER, MEDICAID, SELFPAY ==
--- NOTE | 2024-04-09 14:38 | A.OFFVIS_ITS ---
Intake Visit Reasons: PO LT CTR/ IF trigger 03/27/24 AR Intake Note: Nick is a 63 year old right hand dominant male who presents today post operatively S/P Left Carpal tunnel release and left index finger trigger release DOS: 03/27/24 w/ AR. Patient expresses he has occasional pain deep and soreness inside but it is not too bad. He says he doesn't feel his hand is fully healed inside. Numbness and tingling have improved. His index finger no longer locks. Works w/ [employer] and wants to make sure he can return to work May 01 w/ no complications. Pt brought in paid leave paper work to be completed. 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 Name: [id number] Allergies bee pollen [BEE STINGS] Allergy (Severe, Verified 05/07/24 10:51) SWELLING and facial swelling Sulfa (Sulfonamide Antibiotics) [SULFA (SULFONAMIDE ANTIBIOTICS)] Allergy (Severe, Verified 05/07/24 10:51) swelling, hives prednisone Allergy (Verified 05/07/24 10:51) heart palpitation, raises glucose levels adhesive Adverse Reaction (Intermediate, Verified 05/07/24 10:51) Rash HPI HPI PO LT CTR/ IF trigger 03/27/24 AR: Details: Patient is a 63-year-old male who presents for postoperative evaluation status post left carpal tunnel release and left index finger trigger release, DOS 03/27/2024. Today, the patient reports that he feels he is doing better than he was prior to surgery, but that he does not feel his hand has fully healed. Patient reports that the numbness and tingling in his left hand has improved, but has not completely resolved. The patient also reports that the locking and catching in his left index finger has completely resolved. The patient states he would like to hold off on any potential surgical intervention on the right side until he feels the left side has completely healed. No other acute complaints or concerns at this time. [facility], [facility] Medical History Chronic pain syndrome Personal history of COVID-19 Hx of renal calculi Elevated cholesterol HTN (hypertension) Seasonal allergies Deaf Diabetes Surgical History History of lumbar surgery (12/25/22) S/P placement of nerve stimulator Hx of cholecystectomy History of right inguinal hernia repair (~12/29/19) History of lithotripsy History of bilateral inguinal hernia repair Family History Mother History of lung cancer Social History Household Members: Spouse and Family Housing: Apartment Are you a primary care transition mgr to a significant other at home: No Do you presently have visiting nurse or other home services: No Alcohol intake: current Alcohol intake frequency: holidays/special occasions only Patient Tobacco Use Status: Never used Tobacco Advance Directives Date on File: 12/27/22 service: No Current occupational status: employed Current occupation: [employer] Extrem Other: Patient is alert, oriented, and in no acute distress. Neuro: Diminished sensation in both the index and middle fingers of the left hand, but improved from prior to surgery Normal sensation of the tips of all other digits of the left hand Vascular: Cap refill brisk Pain: Patient reports discomfort in the joints of the left hand when attempting to make a closed fist No tenderness to palpation noted about the incision sites ROM: With encouragement, the patient is able to make a closed fist Can extend the digits of the left hand fully without difficulty Skin: Well-healing incision sites over the A1 bang of the left index finger and the volar aspect of the left wrist General: No ecchymosis, erythema, or evidence of infection. Psych: Appears grossly normal Affect normal Attitude cooperative Assessment & Plan Assessment & Plan (1) Trigger finger, left index finger: Code(s): M65.322 - Trigger finger, left index finger Category: Medical (2) Carpal tunnel syndrome of left wrist: Code(s): G56.02 - Carpal tunnel syndrome, left upper limb Category: Medical Plan 1. Left carpal tunnel syndrome status post carpal tunnel release 2. Left index finger trigger finger, status post trigger release DOS 03/27/2024 Patient appears to be recovering moderately well postoperatively Patient is educated about the typical recovery course At this time, patient is once again educated that due to the fact that he was experiencing dense numbness prior to surgery, there was always an increased chance that he was not going to get totally normal sensation back, but is a good sign that his sensation is improving Patient was amenable to this Patient will follow-up in 4 weeks for check in and reassessment, sooner with any acute concerns Coding Level of Care Code Global (77112) Diagnoses Trigger finger, left index finger M65.322 Carpal tunnel syndrome of left wrist G56.02
== END 2024-04-09 15:38 | disposition home or self-care (01) ==
PROVIDERS: PCP Internal Medicine; Visit Provider Orthopaedic Surgery
DX: M65.322 Trigger finger, left index finger (principal); G56.02 Carpal tunnel syndrome, left upper limb
CPT/HCPCS: 99024

== ENCOUNTER → 2024-04-09 14:12 | Outpatient (BNVA) | payer OTHER, SELFPAY | PROVIDERS: PCP Internal Medicine; Visit Provider Orthopaedic Surgery ==

== ENCOUNTER 2024-05-07 10:26 | Outpatient (AMB) | payer OTHER, SELFPAY ==
--- NOTE | 2024-05-07 10:49 | MHC.OFFVIS ---
Vital Signs 05/07/24 10:50 Height 5 ft 8 in Weight 190 lb BMI 28.9 Handedness Left Intake Visit Reasons: PO LT CTR/ IF trigger 03/27/24 AR Intake Note: Nick is a 63 year old right hand dominant male who presents today post operatively S/P Left Carpal tunnel release and left index finger trigger release DOS: 03/27/2024 w/ Dr Stevens. Patient reports his index finger still occasionally has pain, pops, and half of it is numb. He says if he places his hand in his pocket he expresses this send pain up his left index finger on the medial aspect and at his MCP and PIP joint. He takes ibuprofen when he has pain and finds it gives mild relief. 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 Owner Name: [id number] Allergies bee pollen [BEE STINGS] Allergy (Severe, Verified 05/07/24 10:51) SWELLING and facial swelling Sulfa (Sulfonamide Antibiotics) [SULFA (SULFONAMIDE ANTIBIOTICS)] Allergy (Severe, Verified 05/07/24 10:51) swelling, hives prednisone Allergy (Verified 05/07/24 10:51) heart palpitation, raises glucose levels adhesive Adverse Reaction (Intermediate, Verified 05/07/24 10:51) Rash HPI HPI PO LT CTR/ IF trigger 03/27/24 AR: Details: Patient is a 63-year-old male who presents for postoperative evaluation status post left carpal tunnel release and left index finger trigger release, DOS 03/27/[address] Stevens. Today, the patient reports he is feeling fairly well, but then he is still experiencing diminished sensation in the median nerve distribution of the left hand. The patient also reports a strange ?tingling? sensation on the radial aspect of the left index finger. The patient also reports that he feels he has to ?pop? his right ring finger in order to get it into full extension at night, But states that this does not occur during the day. No other acute complaints or concerns at this time [facility] Medical History Chronic pain syndrome Personal history of COVID-19 Hx of renal calculi Elevated cholesterol HTN (hypertension) Seasonal allergies Deaf Diabetes Surgical History History of lumbar surgery (12/25/22) S/P placement of nerve stimulator Hx of cholecystectomy History of right inguinal hernia repair (~12/29/19) History of lithotripsy History of bilateral inguinal hernia repair Family History Mother History of lung cancer Social History Household Members: Spouse and Family Housing: Apartment Are you a primary customer care voice consultant to a significant other at home: No Do you presently have visiting nurse or other home services: No Alcohol intake: current Alcohol intake frequency: holidays/special occasions only Patient Tobacco Use Status: Never used Tobacco Advance Directives Date on File: 12/27/22 service: No Current occupational status: employed Current occupation: [employer] Vital Signs: BMI result Body Mass Index 28.9 Extrem Other: Patient is alert, oriented, and in no acute distress. Neuro: Diminished sensation in both the index and middle fingers of the left hand Normal sensation of the tips of all other digits of the left hand Vascular: Cap refill brisk Pain: Patient reports discomfort in the joints of the left hand when attempting to make a closed fist No tenderness to palpation noted about the incision sites ROM: With encouragement, the patient is able to make a closed fist Can extend the digits of the left hand fully without difficulty Skin: Well-healed incision sites over the A1 bang of the left index finger and the volar aspect of the left wrist General: No ecchymosis, erythema, or evidence of infection. Psych: Appears grossly normal Affect normal Attitude cooperative Assessment & Plan Assessment & Plan (1) Carpal tunnel syndrome of left wrist: Code(s): G56.02 - Carpal tunnel syndrome, left upper limb Category: Medical (2) Trigger finger, left index finger: Code(s): M65.322 - Trigger finger, left index finger Category: Medical Plan 1. Carpal tunnel syndrome, left, status post carpal tunnel release 2. Left index finger trigger finger, status post trigger release DOS 03/27/2024 Patient appears to be recovering well postoperatively Patient is educated about the typical recovery course At this time, patient will be referred to occupational hand therapy for range of motion and strengthening of the left hand The patient is also advised that, due to experiencing dense numbness prior to surgery, he is at increased risk to not get normal sensation back in his left hand Patient expresses understanding of this Patient will follow-up after he feels he has full function of his left hand back to discuss carpal tunnel release on the right, sooner with any acute concerns Orders: Orders OT Evaluation and Treatment Today G56.02 - Carpal tunnel syndrome, left upper limb, M65.322 - Trigger finger, left index finger Coding Level of Care Code Global (66059) Diagnoses Carpal tunnel syndrome of left wrist G56.02 Trigger finger, left index finger M65.322
[2024-05-07 10:50] VITALS: BMI 28.9
== END 2024-05-07 11:26 | disposition home or self-care (01) ==
PROVIDERS: PCP Internal Medicine
DX: G56.02 Carpal tunnel syndrome, left upper limb (principal); M65.322 Trigger finger, left index finger
CPT/HCPCS: 99024

== ENCOUNTER → 2024-05-07 10:26 | Outpatient (BNVA) | payer OTHER, SELFPAY | PROVIDERS: PCP Internal Medicine ==

== ENCOUNTER 2024-05-08 14:01 | Outpatient (AMB) | payer OTHER, MEDICAID, SELFPAY ==
--- NOTE | 2024-05-08 14:29 | A.SPINEOV_ITS ---
Intake Visit Reasons: left leg pain Intake Note: Mr. Escobar is here today c/o left leg pain. 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 President Required: Yes 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 President Name: ASL Tablet Allergies bee pollen [BEE STINGS] Allergy (Severe, Verified 05/07/24 10:51) SWELLING and facial swelling Sulfa (Sulfonamide Antibiotics) [SULFA (SULFONAMIDE ANTIBIOTICS)] Allergy (Severe, Verified 05/07/24 10:51) swelling, hives prednisone Allergy (Verified 05/07/24 10:51) heart palpitation, raises glucose levels adhesive Adverse Reaction (Intermediate, Verified 05/07/24 10:51) Rash Assessment & Plan Assessment & Plan (1) Lumbar stenosis: Code(s): M48.061 - Spinal stenosis, lumbar region without neurogenic claudication Category: Medical Plan Mr Escobar is status post L4-5 oblique lumbar interbody fusion. His surgery was done approximately 16 months ago and he has been back to work and active until about 2 months ago when he started to notice pain shooting down his right leg. I used an certified court/medical interpreter for sign language through the iPad today and had him demonstrate where the pain was traveling down his legs and he describes it as going from his buttock down to his lateral thigh down to his knee than his medial tibial region. The pain is particularly bad when he is standing for any length of time. It is aggravated with walking but that is not the worst position, standing seems to be the worse. When he is driving in a car can also aggravate him. It has a shock-like feeling that radiates down his leg similar to what he had before. He has been taking [id number] medications as well as prescription tizanidine without much relief. He is worried that he may have pinched another nerve. I examined him in his strength and reflexes are intact. I would like to order a lumbar MRI to exclude herniated disc. Total amount of time spent in this visit was 20 minutes in discussion of symptoms, ordering MRI imaging and subsequent plan of care Mark Martinez MD,PhD [facility] Orders: Orders MR lumbar spine wo con Today M48.061 - Spinal stenosis, lumbar region without neurogenic claudication Coding Level of Care Code Est Pt Level 3 (59890) Diagnoses Lumbar stenosis M48.061
== END 2024-05-08 14:42 | disposition home or self-care (01) ==
PROVIDERS: PCP Internal Medicine; Visit Provider Physician Assistant
DX: M48.061 Spinal stenosis, lumbar region without neurogenic claudication (principal)
CPT/HCPCS: 99213

== ENCOUNTER → 2024-05-08 14:01 | Outpatient (BNVA) | payer OTHER, MEDICAID, SELFPAY | PROVIDERS: PCP Internal Medicine; Visit Provider Physician Assistant ==

== ENCOUNTER → 2024-05-31 09:05 | Outpatient (BNV) | payer OTHER, MEDICAID, SELFPAY | PROVIDERS: PCP Internal Medicine; Visit Provider Radiology Diagnostic Radiology | DX: M48.061 Spinal stenosis, lumbar region without neurogenic claudication (principal) | CPT/HCPCS: 72148 ==

== ENCOUNTER 2024-05-31 09:16 | Outpatient (REF) | payer OTHER, MEDICAID, SELFPAY ==
--- NOTE | ~2024-05-31 | MR_ITS ---
EXAMINATION: MR LUMBAR SPINE WITHOUT CONTRAST CLINICAL INFORMATION: Spinal stenosis, lumbar region without neurogenic claudication. COMPARISON: MRI dated December 07, 2020. TECHNIQUE: MRI of the lumbar spine was obtained using routine sequences without contrast. FINDINGS: Submitted for interpretation on July 22, 2024. Last rib-bearing vertebra labeled T12. Paramagnetic field distortion secondary to metallic hardware posterior fusion L4-5 and intervertebral disc body spacer L4-5. No bone marrow STIR signal abnormality. Multilevel marginal osteophyte formation and disc disease lesion more conspicuous at L3-4 and L5-S1. Conus medullaris and sac inferior endplate of L1 with normal signal. T12-L1: No disc herniation. No neuroforamina stenosis. L1-2: No disc herniation. Facet joint and ligamentum flavum hypertrophy. Reduced AP diameter of the thecal sac. No compression upon neural elements. L2-3: Broad-based disc bulging. Facet joint and ligamentum flavum hypertrophy. Reduced AP diameter of the thecal sac and neuroforamina. No compression upon neural elements. L3-4: Broad-based disc bulging. Facet joint and ligamentum flavum hypertrophy. CSF effacement of the thecal sac and central spinal canal and bilateral neuroforamina stenosis encroaching the neural elements mostly of the thecal sac. There is a focal 5 mm hyperintense T2 signal in the right ligamentum flavum likely small synovial cyst. L4-5: Postsurgical changes. Bilateral neuroforamina narrowing. L5-S1: Left subarticular and foraminal disc herniation compressing the left S1 and likely encroaching the left L5 nerve roots. Facet joint hypertrophy. Bilateral neuroforamina stenosis encroaching the L5 exiting nerve roots. No prevertebral compartment hematoma mass or fluid collection. The neural elements of the thecal sac demonstrated no cramping or grouping. MR/MR lumbar spine wo con IMPRESSION: Left subarticular and foraminal disc herniation L5-S1 compressing the left S1 and likely encroaching left L5. Central spinal canal and bilateral neuroforamina stenosis on a multifactorial/degenerative basis at L3-4 encroaching likely compressing the neural elements. Electronically signed by: Dion Cortez MD 07/22/2024 03:33 PM EST
== END 2024-05-31 09:17 | disposition home or self-care (01) ==
LOC: HO.MRI 09:16
PROVIDERS: PCP Internal Medicine; Visit Provider Physician Assistant
DX: M48.061 Spinal stenosis, lumbar region without neurogenic claudication (principal)
CPT/HCPCS: 72148

== ENCOUNTER 2024-06-26 13:00 | Outpatient (RCR) | payer OTHER, MEDICAID, SELFPAY ==
--- NOTE | 2024-06-04 11:52 | MHC.OT.EP ---
[address] [phone] Occupational Therapy Plan of Care Patient Name: Nick Escobar Date of Evaluation: 06/04/24 Diagnosis: Post-op Left CTR and index trigger finger release Pain Location: Left palm, tightness Also pain in back and left shoulder Pain Score: 3 Pain Scale Used: Numeric (0 - 10) Aggravating Factors: General use/movement Alleviating Factors: Ibuprophen 800 Assessment: 63 yo male w/ hx of left CTS and index triggering, now post-op release and referred to OT for cont'd management of hand stiffness and scar tissue. On assessment today, he surgical incisions are well healed, but tight through palm. 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 He has been educated on self scar tissue massage as well as tendon glides and median nerve glides, may also benefit from right carpal tunnel nighttime orthosis for relief, but is otherwise anticipating surgical release of right hand in a couple months. Frequency and Duration: The patient will be seen 2x/wk for 3 weeks Short Term Goals: Full left hand AROM w/ ease Good follow through w/ self soft tissue and scar management Left gross grasp >40lb Pt to report ease w/ coordination tasks using left hand Deployment Specialist Goals: same as above Treatment Plan: Therapeutic Exercise Therapeutic Activity Home Exercise Program Splinting Neuro Re-ed Patient Education Desensitization/Sensory Re-ed Edema Control ADL Training Ultrasound Paraffin Fluidotherapy MHP Cold Packs Joint Mobilization Soft Tissue Mobilization Electronically Signed By: Melisa Degroot OTR/L CHT Please Sign and return to therapist. Thank you once again for your referral.
--- NOTE | 2024-06-26 13:41 | MHC.OT.DC ---
[address] [phone] F: [phone] Occupational Therapy Discharge Note Patient Name: Nick Escobar Provider: Mateo Wilburn PA-C Diagnosis: Post-op Left CTR and index trigger finger release Date of Surgery: 03/27/24 Date of Evaluation: 06/04/24 Date of Discharge: 06/26/24 Treatments to Date: 5 Discharge Status: Achieved Goals Improved Function Independent with HEP Discharge Summary: Nick is now about three months post-op left CTR and index trigger finger release. He has progressed through course of OT and is doing well, no triggering noted today and reported good relief of nerve symptoms postoperatively, some mild tingling and numbness still. Primary complaint is ongoing Dupuytren's contracture and is hopeful for surgical consult soon. No significant functional limitations and Ind w/ self management. Electronically Signed By: Melisa Degroot OTR/L CHT Reviewed/agree with student documentation: Therapist: Please Sign and return to therapist, thank you for your referral.
== END 2024-06-26 13:41 | disposition home or self-care (01) ==
LOC: HO.OT 13:00
PROVIDERS: PCP Internal Medicine
DX: G56.02 Carpal tunnel syndrome, left upper limb (principal); M65.322 Trigger finger, left index finger
CPT/HCPCS: 97035; 97110; 97140; 97165; 97760

== ENCOUNTER 2024-07-25 14:16 | Outpatient (AMB) | payer OTHER, MEDICAID, SELFPAY ==
--- NOTE | 2024-07-25 14:52 | HO.SPINEOV ---
Intake Visit Reasons: MRI f/u Intake Note: Mr. 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 I used learning design specialist [id number]. The patient reports now he is having pain that was on the right side has now shifted to the left shooting down the back of his leg into his calf and the bottom of his foot. On my exam he has weakness of his left plantar flexion and an absent Achilles reflex. His MRI done here at [place] shows that he has a large herniated disc on the left at L5-S1. I reviewed the imaging with Dr. Martinez, the patient would be a good candidate for left L5-S1 microdiskectomy. We would not move directly to fusion in this circumstance as we would like to see if this can heal with a simple microdiskectomy. I updated the patient, he has been in pain now for 3 months, been using ibuprofen, Tylenol and has generally been miserable unable to sleep or walk etc.. Therefore we offered him a left L5-S1 microdiskectomy. Pt was given risk and benefits of surgery including but not limited to infection, hematoma , nerve injury,durotomy, weakness,bowel/bladder injury, persistent pain, recurrent herniated as well as the option to continue with conservative treatment and patient wishes to proceed with surgery. Pt is aware they should stop their motrin, aspirin 7 days prior to surgery and his Januvia 3 days prior to surgery. All questions were answered to the best of our ability. If there is anything about this patients medical history that we have overlooked or concerns you have about us proceeding with surgery we would appreciate any input you can offer. Total amount of time spent in this visit was 20 minutes in discussion of symptoms, lumbar MRI imaging results and subsequent plan of care Mark Martinez MD,PhD [facility] Coding Level of Care Code Est Pt Level 3 (88690) Diagnoses Lumbar disc herniation M51.26
--- OUTSIDE RECORDS SUMMARY | 2024-07-30 10:18 | XMS_ITS | Data Portability ---
Author Organization [employer] [facility], Id in - [employer] Address [address] [place] [id number] Care Team Providers Care Digital Campaign Manager Name Role Phone [facility] Referring Provider Assessment No assessment recorded. Plan of Treatment Reminders Order Date Submit Date Provider Last Modified By Organization Details Last Modified Time Details Appointments None recorded. Lab None recorded. Referral None recorded. Procedures None recorded. Surgeries None recorded. Imaging None recorded. Medication Orders azithromyci n 250 mg tablet 2022 [facility]/Pharmacy #[id number], [address] [place], [address], 10:33:17 Flovent HFA 44 mcg/actuati on aerosol inhaler 2022 023 [facility]/Pharmacy #[id number], [address] [place], [address], 10:33:17 Patient TargetsNo targets recorded. Patient InstructionsNo instructions recorded. Reason for Referral None Reported. Medical Equipment None Reported. Medications Name Sig Start Date Stop Date Status Note LastModified by Organization Details LastModified Time losartan 50 mg tablet TAKE ONE TABLET EVERY MORNING active Not Available Not Available No t Available atorvastatin 40 mg tablet TAKE ONE TABLET EVERY MORNING active Not Available Not Available No t Available doxycycline hyclate 100 mg capsule TAKE ONE CAPSULE BY MOUTH TWICE DAILY FOR 5 DAYS. TAKE WITH AT LEAST 8OZ OF WATER. DO NOT LIE DOWN FOR 30 MINUTES AFTER active Not Available Not Available No t Available azithromycin 250 mg tablet TAKE ONE TABLET DAILY FOR FIVE DAYS active Not Available Not Available No t Available ibuprofen 800 mg tablet TAKE ONE TABLET BY MOUTH TWICE DAILY WITH FOOD active Not Available Not Available No t Available tizanidine 4 mg tablet TAKE ONE TABLET BY MOUTH EVERY SIX TO EIGHT HOURS NEEDED, DO NOT EXCEED THREE TABLETS IN 24 HOURS active Not Available Not Available No t Available lisinopril 20 mg tablet TAKE ONE TABLET EVERY MORNING active Not Available Not Available No t Available prednisone 20 mg tablet active Not Available Not Available Not Available OneTouch Ultra Test strips TEST BLOOD SUGAR THREE TIMES DAILY. active Not Available Not Available No t Available benzonatate 100 mg capsule TAKE ONE CAPSULE THREE TIMES DAILY IN THE MORNING, AT NOON, AND AT BEDTIME NEEDED FOR COUGH active Not Available Not Available No t Available lisinopril 10 mg tablet TAKE ONE TABLET DAILY active Not Available Not Available No t Available docusate sodium 100 mg capsule TAKE ONE CAPSULE TWICE DAILY active Not Available Not Available Not Available gabapentin 300 mg capsule TAKE ONE CAPSULE THREE TIMES DAILY active Not Available Not Available No t Available codeine 10 mg-guaifenes in 100 mg/5 mL oral liquid TAKE FIVE ML BY MOUTH EVERY SIX HOURS NEEDED FOR COUGH active Not Available Not Available No t Available polyethylene glycol 3350 17 gram/dose oral powder MIX 17 GRAM IN 8oz WATER AND DRINK THREE TIMES DAILY FOR THREE DAYS THEN take ONCE DAILY thereafter active Not Available Not Available N ot Available albuterol sulfate HFA 90 mcg/actuatio n aerosol inhaler INHALE 2 PUFFS BY MOUTH EVERY 4 TO 6 HOURS NEEDED FOR SHORTNESS OF BREATH OR WHEEZING active Not Available Not Available Not Available fluticasone propionate 50 mcg/actuatio n nasal spray,suspen mike active Not Available Not Available Not Available loratadine 10 mg tablet TAKE ONE TABLET EVERY MORNING active Not Available Not Available No t Available glipizide 5 mg tablet TAKE ONE TABLET BY MOUTH THREE TIMES DAILY BEFORE MEALS active Not Available Not Available No t Available amoxicillin 875 mg-potassium clavulanate 125 mg tablet TAKE ONE TABLET BY MOUTH TWICE DAILY FOR 10 DAYS active Not Available Not Available No t Available oxycodone 5 mg tablet TAKE 1 TO 2 TABLETS BY MOUTH EVERY 8 HOURS NEEDED FOR PAIN active Not Available Not Available No t Available insulin lispro (U-100) 100 unit/mL subcutaneous pen INJECT 12 UNITS SUBCUTANEOU SLY THREE TIMES DAILY active Not Available Not Available Not Available Novolog FlexPen U-100 Insulin aspart 100 unit/mL (3 mL) subcutaneous INJECT 12 UNITS SUBCUTANEOU SLY THREE TIMES DAILY active Not Available Not Available Not Available Flovent HFA 44 mcg/actuatio n aerosol inhaler INHALE 2 PUFFS BY MOUTH TWICE A DAY active Not Available Not Available No t Available Flovent HFA 110 mcg/actuatio n aerosol inhaler INHALE ONE PUFF TWICE DAILY IN THE MORNING AND AT BEDTIME, RINSE MOUTH AFTER USE active Not Available Not Available No t Available Januvia 100 mg tablet TAKE ONE TABLET BY MOUTH EVERY DAY active Not Available Not Available No t Available Lantus Solostar U-100 Insulin 100 unit/mL (3 mL) subcutaneous pen INJECT 60 UNITS SUBCUTANEOU SLY ONCE DAILY active Not Available Not Available No t Available Livalo 2 mg tablet TAKE ONE TABLET DAILY active Not Available Not Available No t Available Stimulant Laxative Plus 8.6 mg-50 mg tablet TAKE TWO TABLETS BY MOUTH AT BEDTIME NEEDED FOR CONSTIPATIO N active Not Available Not Available No t Available Pentips Pen Needle 31 gauge x 3/ TEST BLOOD SUGAR FOUR TIMES DAILY active Not Available Not Available Not Available TechLITE Pen Needle 32 gauge x 1/4 USE FOUR TIMES DAILY] active Not Available Not Available No t Available Vitals Date Recorded Respiratory rate Body temperature Oxygen saturation Oxygen saturation in Arterial blood by Pulse oximetry Heart rate Systolic blood pressure Diastolic blood pressure Provider Name and Address Organization Details Last Updated DateTime 3 16 /min 97 [degF] 16 % 16 % 77 /min 147 mm[Hg] 70 mm[Hg] Not Available [facility] - production 3 10:14:26 Social History None recorded. Functional Status None recorded. Mental Status None recorded. Family History Nothing Reported. Medical History No medical history recorded. Past Encounters Encounter ID Performer Location Encounter Start Date Encounter Closed Date Diagnosis/Indication Diagnosis SNOMED-CT Code Diagnosis ICD10 Code [id number] Kiana Rojas MD [facility] - [facility] [address] [place] [phone] 05/23/2023 10:14:23 05/24/2023 00:31:53 Cough 44653548 R05.9 Health Concerns Section Related Observation LastModified by Organization Detai ls LastModified Time None Recorded Concern Status LastModified by Organization Details LastModified Time None Recorded Advance Directives Directive None Recorded Payers Encounter Date Sequence Insurance Name Policy Number Policy Liang Covered Member ID Liang Member ID Guarantor Name 05/23/2023 1 [facility] - DOS ON OR AFTER 2022 - DUAL ELIGIBLE - INTERMEDIATE OPTIONS AND ONE CARE (MEDICARE REPLACEMENT/AD VANTAGE - HMO) Nick Escobar [id number] Nick Escobar Notes Date Note Type Note Provider Name and Address Organization Details Recorded Time 05/23/2023 text/html HPI: History of:Palpitations and Bilateral Deafness. Patient called with concerns this morning as he started Prednisone as ordered by ED visit yesterday. Patient reports that heart was racing after dose of 20 mg. Of concern is elevated Blood Sugars. Patient independently increased dose of Novolog to 30units (12 ordered) and did that last night x 2. BS then 386 and this morning 137. Cough and phlegm improved. Advised no further Prednisone until evaluated by [facility] administrative services assistant. ................... ................... ................... ................... ................... ................... ................... ........ [facility] Nursing Assessment: Comments: Reviewed = Deuce VASQUES ................... ................... ................... ................... ................... ................... ................... ........ Family Helper Note From Isaiah Green: Pt reports that he has been having a productive cough for several day and SOB, was seen at ed yesterday was placed on MDI, and oral prednisone. States that he didn? t like the prednisone and wants to stop taking it. On scene vs taken and 12l done [facility] was called pt advised to stop taking prednisone and inhaled steroid and ABX RX called in and was advised to go back to ED if symptoms don? t get better. ................... ................... ................... ................... ................... ................... ................... ........ Disposition: Fulfilled Kiana Rojas MD [address] [place] [address],[address], [place], [phone], BOBY ELENA 05/23/2023 23:34:00
== END 2024-07-25 16:20 | disposition home or self-care (01) ==
PROVIDERS: PCP Internal Medicine; Visit Provider Physician Assistant
DX: M51.26 Other intervertebral disc displacement, lumbar region (principal)
CPT/HCPCS: 99213

== ENCOUNTER → 2024-07-25 14:16 | Outpatient (BNVA) | payer OTHER, MEDICAID, SELFPAY | PROVIDERS: PCP Internal Medicine; Visit Provider Physician Assistant ==

== ENCOUNTER 2024-08-18 08:59 | Outpatient (AMB) | payer OTHER, MEDICAID, SELFPAY ==
--- NOTE | 2024-08-18 09:33 | A.SPINEOV_ITS ---
Intake Visit Reasons: Discuss Surgery Intake Note: Mr. Armando is here to Discuss Surgery. Sap Senior Developer Required: No Allergies bee pollen [BEE STINGS] Allergy (Severe, Verified 05/07/24 10:51) SWELLING and facial swelling Sulfa (Sulfonamide Antibiotics) [SULFA (SULFONAMIDE ANTIBIOTICS)] Allergy (Severe, Verified 05/07/24 10:51) swelling, hives prednisone Allergy (Verified 05/07/24 10:51) heart palpitation, raises glucose levels adhesive Adverse Reaction (Intermediate, Verified 05/07/24 10:51) Rash Assessment & Plan Assessment & Plan (1) Lumbar disc herniation: Code(s): M51.26 - Other intervertebral disc displacement, lumbar region Category: Medical Plan Mr armando came back to the office today to review his procedure again, left L5-S1 microdiskectomy. I used the office services representative 0107 from the telephone service that can X directly to the patient because the iPad here in the office would not work. We discussed the procedure at length, including risks, benefits etc.. He will stop his Januvia 2 days before surgery and his aspirin and Motrin 1 week before surgery. He is tentatively scheduled for September 05. Total amount of time spent in this visit was 20 minutes in discussion of symptoms, lumbar imaging results and subsequent plan of care Mark Martinez MD,PhD [facility] Coding Level of Care Code Est Pt Level 3 (81472) Diagnoses Lumbar disc herniation M51.26
== END 2024-08-18 10:02 | disposition home or self-care (01) ==
PROVIDERS: PCP Internal Medicine; Visit Provider Physician Assistant
DX: M51.26 Other intervertebral disc displacement, lumbar region (principal)
CPT/HCPCS: 99213

== ENCOUNTER → 2024-08-18 08:59 | Outpatient (BNVA) | payer OTHER, MEDICAID, SELFPAY | PROVIDERS: PCP Internal Medicine; Visit Provider Physician Assistant ==

== ENCOUNTER → 2024-08-25 11:15 | Outpatient (BNV) | payer OTHER, MEDICAID, SELFPAY | PROVIDERS: PCP Internal Medicine; Visit Provider Internal Medicine | DX: R94.31 Abnormal electrocardiogram [ECG] [EKG] (principal) | CPT/HCPCS: 93010 ==

== ENCOUNTER 2024-09-04 11:37 | Day surgery (SDC) | payer MEDICARE, MEDICAID, SELFPAY ==
--- NOTE | 2024-08-25 | ECG_ITS ---
Test Reason : PRE OP Blood Pressure : / mmHG Vent. Rate : 056 BPM Atrial Rate : 056 BPM P-R Int : 164 ms QRS Dur : 072 ms QT Int : 402 ms P-R-T Axes : -02 -37 018 degrees QTc Int : 387 ms Sinus bradycardia Left axis deviation Increased R/S ratio in V1, consider early transition or posterior infarct Abnormal ECG When compared with ECG of 26-JUN-2023 11:59, No significant change was found Referred By: Lissa Regan Electronically Signed By:GABRIEL HILTON
[2024-08-25 09:55] VITALS: BP 148/72; PULSE 64; RESP 16; O2SAT 98; BMI 30.3
--- NOTE | 2024-08-25 10:31 | P.CONAN_ITS ---
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 Anesthesia Pre-Procedure Meds Is the patient on any of the following meds?: GLP1/DPP4 PMFSH Active Problems Active Problems: All Active Problems Lumbar disc herniation (Acute) Trigger finger, left index finger (Acute) Carpal tunnel syndrome of left wrist (Acute) Left shoulder pain (Acute) Failed back syndrome of lumbar spine (Acute) Impingement syndrome of left shoulder (Acute) Status post lumbar and lumbosacral fusion by anterior technique (Acute) Neurogenic claudication due to lumbar spinal stenosis (Acute) Neurogenic claudication (Acute) Spinal cord stimulator status (Acute) Lumbar stenosis (Acute) Multilevel degenerative disc disease (Acute) Lumbar facet arthropathy (Acute) Spondylosis of lumbosacral spine with radiculopathy (Acute) Right groin pain (Acute) Deaf (Acute) Chronic pain syndrome (Acute) Diabetes (Acute) Past Medical History Medical History Wears dentures Chronic pain syndrome Personal history of COVID-19 Hx of renal calculi Elevated cholesterol HTN (hypertension) Seasonal allergies Deaf Diabetes Family History Family History Mother History of lung cancer Family history of problems with anesthesia: No Surgical History Surgical History History of carpal tunnel surgery of left wrist (03/27/24) History of lumbar surgery (12/25/22) S/P placement of nerve stimulator Hx of cholecystectomy History of right inguinal hernia repair (~12/29/19) History of lithotripsy History of bilateral inguinal hernia repair History of Problems with Anesthesia: No Social History Social History Household Members: Spouse and Family Housing: Apartment Are you a primary manager intensive care unit to a significant other at home: No Do you presently have visiting nurse or other home services: No Alcohol intake: current Alcohol intake frequency: holidays/special occasions only Comment: sometimes uses a cane, uses a scooter at stores Patient Tobacco Use Status: Never used Tobacco Use of substances other than those prescribed or required for medical reasons: No Have you been hit, kicked, punched, or otherwise hurt by someone within the past year? If so, by whom?: No Are you DNR?: No Advance Directives: No Advance Directives Information Provided: Yes Advance Directives on File: No Advance Directives Date on File: 12/27/22 Recently lost weight without trying: No Nutrition Risks: No Nutritional Risk service: No Current occupational status: employed Current occupation: [employer] Allergies Allergy/AdvReac Type Severity Reaction Status Date / Time bee pollen [BEE STINGS] Allergy Severe SWELLING Verified 09/04/24 12:05 and facial swelling Sulfa (Sulfonamide Allergy Severe swelling, Verified 09/04/24 12:05 Antibiotics) hives [SULFA (SULFONAMIDE ANTIBIOTICS)] prednisone Allergy heart Verified 09/04/24 12:05 palpitation, raises glucose levels adhesive AdvReac Intermediate Rash, Verified 09/04/24 12:05 burning Home Medications ?Medication ?Instructions ?Recorded ?Confirmed ?Last Taken ?Type blood sugar diagnostic #10 ea 10/29/20 12/06/23 Unknown History cholecalciferol (vitamin D3) 25 25 mcg PO DAILY 10/29/20 08/25/24 Unknown History mcg (1,000 unit) capsule coenzyme Q10 100 mg capsule 100 mg PO DAILY 10/29/20 08/25/24 Unknown History (CoQ-10) glipizide 5 mg tablet 5 mg PO DAILY 10/29/20 08/25/24 09/12/23 History insulin syringe-needle U-100 1 mL #10 ea 10/29/20 12/06/23 Unknown History 31 gauge x 01/02 mecobalamin (vitamin B12) 1,000 1,000 mcg sublingual DAILY 10/29/20 08/25/24 Unknown History mcg disintegrating tablet,sublingual pen needle, diabetic 31 gauge x #50 ea 10/29/20 12/06/23 Unknown History 11/02 acetaminophen 500 mg tablet 500 mg PO Q6H PRN Pain 12/05/22 08/25/24 Unknown History gabapentin 300 mg capsule 300 mg PO TID 12/05/22 08/25/24 Unknown History tizanidine 4 mg tablet 4 mg PO Q6-8H PRN Pain 12/05/22 08/25/24 Unknown History lisinopril 20 mg tablet 20 mg QAM 12/25/22 08/25/24 09/12/23 History atorvastatin 40 mg tablet 40 mg PO DAILY 07/03/23 08/25/24 Unknown History insulin glargine 100 unit/mL (3 55 unit subcut BEDTIME 07/03/23 08/25/24 09/12/23 History mL) subcutaneous pen (Lantus Solostar U-100 Insulin) sitagliptin phosphate 100 mg 100 mg PO DAILY 09/14/23 08/25/24 09/01/24 History tablet (Januvia) insulin lispro 100 unit/mL 10 - 15 sliding scale dose subcut 03/11/24 08/25/24 Unknown History subcutaneous pen (Humalog KwikPen TID (U-100) Insulin) losartan 50 mg tablet 50 mg PO DAILY 03/11/24 Unknown History melatonin 5 mg tablet 5 mg PO BEDTIME PRN Insomnia 03/11/24 08/25/24 Unknown History aspirin 81 mg tablet,delayed mg 09/04/24 08/28/24 History release Exam Height,Weight and Vital Signs: Height 5 ft 8 in Weight 90.4 kg Last Vital Signs Pulse 64 08/25/24 09:55 Resp 16 08/25/24 09:55 BP 148/72 H 08/25/24 09:55 Pulse Ox 98 08/25/24 09:55 O2 Del Method Room Air 08/25/24 09:55 Pertinent Lab Results Pertinent Lab Results: Lab Results 08/25/24 Range/Units 11:15 WBC 5.5 (4.8-10.8) X10*3/uL RBC 4.24 L (4.60-5.80) X10*6/uL Hgb 13.7 L (14.0-18.0) g/dl Hct 39.6 L (42.0-52.0) % MCV 93.4 (80.0-98.0) fL MCH 32.3 (27.0-33.0) pg MCHC 34.6 (31.0-36.0) g/dl RDW 12.5 (11.0-16.0) % Plt Count 174 (160-400) X10*3/uL MPV 10.0 (9.4-12.4) fL Absolute Nucleated RBC 0.000 (0.0-0.012) X10*3/uL Nucleated RBC % (auto) 0.0 (0.0-0.2) /100WBC Sodium 141 (135-145) mmol/L Potassium 4.1 (3.3-5.1) mmol/L Chloride 107 (96-108) mmol/L Carbon Dioxide 27 (22-29) mmol/L Anion Gap 11 L (12-20) BUN 21 H (9-16) mg/dL Creatinine 1.22 (0.5-1.4) mg/dL Estim Creat Clear Calc 69.4 Estimated GFR > 60 Random Glucose 144 H (60-115) mg/dL Estimat Average Glucose 189 mg/dL Hemoglobin A1c % 8.2 H (<6.0) % Calcium 9.5 (8.4-10.2) mg/dL Narrative Narrative: Holter 10/2023 * Total monitoring time about 2 days. * Underlying rhythm is sinus with an average rate of 69/Min. Range 51 to 116/Min. * Rare supraventricular ectopy. Very brief runs. * Rare ventricular ectopy. * No significant pauses or AV blocks. * No patient markers or diary events. Airway Mallampati Class: III TM Dist: >3cm Neck ROM: Full Denture: Upper Heart: RRR Lungs: CTAB Assessment and Plan Assessment Anesthesia Assessment: Anesthesia Plan Discussed and PAT Visit Final Anesthetic Review Family History of Problems with Anesthesia: No History of Problems with Anesthesia: No Documented by User: Alissa Guevara MD 09/04/24 12:44 [facility] Past Medical History Medical History Wears dentures Chronic pain syndrome Personal history of COVID-19 Hx of renal calculi Elevated cholesterol HTN (hypertension) Seasonal allergies Deaf Diabetes Family History Family History Mother History of lung cancer Surgical History Surgical History History of carpal tunnel surgery of left wrist (03/27/24) History of lumbar surgery (12/25/22) S/P placement of nerve stimulator Hx of cholecystectomy History of right inguinal hernia repair (~12/29/19) History of lithotripsy History of bilateral inguinal hernia repair Social History Social History Household Members: Spouse and Family Housing: Apartment Are you a primary manager intensive care unit to a significant other at home: No Do you presently have visiting nurse or other home services: No Alcohol intake: current Alcohol intake frequency: holidays/special occasions only Comment: sometimes uses a cane, uses a scooter at stores Patient Tobacco Use Status: Never used Tobacco Use of substances other than those prescribed or required for medical reasons: No Have you been hit, kicked, punched, or otherwise hurt by someone within the past year? If so, by whom?: No Are you DNR?: No Advance Directives: No Advance Directives Information Provided: Yes Advance Directives on File: No Advance Directives Date on File: 12/27/22 Recently lost weight without trying: No Nutrition Risks: No Nutritional Risk service: No Current occupational status: employed Current occupation: [employer] Allergies Allergy/AdvReac Type Severity Reaction Status Date / Time bee pollen [BEE STINGS] Allergy Severe SWELLING Verified 09/04/24 12:05 and facial swelling Sulfa (Sulfonamide Allergy Severe swelling, Verified 09/04/24 12:05 Antibiotics) hives [SULFA (SULFONAMIDE ANTIBIOTICS)] prednisone Allergy heart Verified 09/04/24 12:05 palpitation, raises glucose levels adhesive AdvReac Intermediate Rash, Verified 09/04/24 12:05 burning Home Medications ?Medication ?Instructions ?Recorded ?Confirmed ?Last Taken ?Type blood sugar diagnostic #10 ea 10/29/20 12/06/23 Unknown History cholecalciferol (vitamin D3) 25 25 mcg PO DAILY 10/29/20 08/25/24 Unknown History mcg (1,000 unit) capsule coenzyme Q10 100 mg capsule 100 mg PO DAILY 10/29/20 08/25/24 Unknown History (CoQ-10) glipizide 5 mg tablet 5 mg PO DAILY 10/29/20 08/25/2409/12/24 History insulin syringe-needle U-100 1 mL #10 ea 10/29/20 12/06/23 Unknown History 31 gauge x 01/02 mecobalamin (vitamin B12) 1,000 1,000 mcg sublingual DAILY 10/29/20 08/25/24 Unknown History mcg disintegrating tablet,sublingual pen needle, diabetic 31 gauge x #50 ea 10/29/20 12/06/23 Unknown History 11/02 acetaminophen 500 mg tablet 500 mg PO Q6H PRN Pain 12/05/22 08/25/24 Unknown History gabapentin 300 mg capsule 300 mg PO TID 12/05/22 08/25/24 Unknown History tizanidine 4 mg tablet 4 mg PO Q6-8H PRN Pain 12/05/22 08/25/24 Unknown History lisinopril 20 mg tablet 20 mg QAM 12/25/22 08/25/24 09/12/23 History atorvastatin 40 mg tablet 40 mg PO DAILY 07/03/23 08/25/24 Unknown History insulin glargine 100 unit/mL (3 55 unit subcut BEDTIME 07/03/23 08/25/24 09/12/23 History mL) subcutaneous pen (Lantus Solostar U-100 Insulin) sitagliptin phosphate 100 mg 100 mg PO DAILY 09/14/23 08/25/24 09/01/24 History tablet (Januvia) insulin lispro 100 unit/mL 10 - 15 sliding scale dose subcut 03/11/24 08/25/24 Unknown History subcutaneous pen (Humalog KwikPen TID (U-100) Insulin) losartan 50 mg tablet 50 mg PO DAILY 03/11/24 Unknown History melatonin 5 mg tablet 5 mg PO BEDTIME PRN Insomnia 03/11/24 08/25/24 Unknown History aspirin 81 mg tablet,delayed mg 09/04/24 08/28/24 History release Exam Airway Mallampati Class: II Loose/Missing/Broken Teeth: Yes, Upper and Lower Assessment and Plan Final Anesthetic Review NPO: Yes ASA Class: II Final Preanesthetic Review: Meds/Allgs Chart Reviewed, Consent Obtained/Reviewed and Anes Risks/Benef Reviewed Patient Risk: Low Procedure Risk: Intermediate Anesthetic Plan Anesthetic Plan: GA Disposition: Standard PACU
[2024-08-25 12:11] LABS: Hematocrit 39.6 % (42.0-52.0); Hemoglobin 13.7 g/dl (14.0-18.0); Mean Corpuscular HGB Conc 34.6 g/dl (31.0-36.0); Mean Corpuscular Hemoglobin 32.3 pg (27.0-33.0); Mean Corpuscular Volume 93.4 fL (80.0-98.0); Platelet Count 174 X10*3/uL (160-400); Red Blood Count 4.24 X10*6/uL (4.60-5.80); Red Cell Distribution Width 12.5 % (11.0-16.0); White Blood Count 5.5 X10*3/uL (4.8-10.8)
[2024-08-25 12:29] LABS: Estimated Average Glucose 189 mg/dL; Hemoglobin A1C 230.0602 umol/L; Hemoglobin A1c % 8.2 % (<6.0); Total Hemoglobin (HGBA1C) 3453.2909 umol/L
[2024-08-25 12:52] LABS: Anion Gap 11 (12-20); Blood Urea Nitrogen 21 mg/dL (9-16); Calcium 9.5 mg/dL (8.4-10.2); Carbon Dioxide 27 mmol/L (22-29); Chloride 107 mmol/L (96-108); Creatinine Clr Calc Pharmacy 69.4; Estimated Glomerular Filt Rate > 60; Glucose Random 144 mg/dL (60-115); Potassium 4.1 mmol/L (3.3-5.1); Sodium 141 mmol/L (135-145)
[2024-09-04] VITALS (9 sets, daily range): BP systolic 128–141; BP diastolic 69–86; PULSE 65–74; RESP 14–20; TEMP 36.8–37.1; O2SAT 96–100
--- NOTE | ~2024-09-04 | FL_ITS ---
EXAMINATION: FL GUIDANCE ONLY HISTORY: L5-S1 microdiscectomy COMPARISON: Comparison is made with the prior examination dated 12/25/2022. TECHNIQUE: Fluoroscopy time: Less than 0.1 minute. Cumulative Dose: 3.86 mGy. DAP: 0.850 uGy-m2 (microgray-meter squared). Images: 1. FINDINGS: A single fluoroscopic spot film of the lumbar spine in the lateral projection demonstrates a probe directed toward the L5-S1 intervertebral disc space and posterior approach. The patient is status post posterior fusion of L4 and L5 with pedicle screws, spinal stabilization rods, and an intervertebral spacer. FL/FL guidance in OR IMPRESSION: Fluoroscopy during procedure. Please see procedure report for additional information. Electronically signed by: Michael Salomon MD 09/05/2024 01:59 PM IRVIN
--- NOTE | 2024-09-04 12:15 | MHC.SHP ---
Pre-Procedural Eval Section A - 24 Hr Update-Section A only Date of Service: 09/04/24 The patient is an INPATIENT: No Section B - Complete if H&P > 30 days Chief Complaint: Other intervertebral disc displacement, lumbar reg Details of Present Illness: Left leg pain Allergies: Allergies Allergy/AdvReac Type Severity Reaction Status Date / Time bee pollen [BEE STINGS] Allergy Severe SWELLING Verified 09/04/24 12:05 and facial swelling Sulfa (Sulfonamide Allergy Severe swelling, Verified 09/04/24 12:05 Antibiotics) hives [SULFA (SULFONAMIDE ANTIBIOTICS)] prednisone Allergy heart Verified 09/04/24 12:05 palpitation, raises glucose levels adhesive AdvReac Intermediate Rash, Verified 09/04/24 12:05 burning Review of Systems Sugical H&P ROS: Negative: Constitution, Cardiovascular, Respiratory, Neurological, Psychiatric, Hem-Onc, Allergic/Immunologic, Gastrointestinal, Genitourinary, Musculoskeletal, Integumentary and Endocrine and Yes, Specify: Eyes/Ears/Nose/Throat (Deaf) Exam Surgical H&P Exam: Not Evaluated: HEENT, Not Evaluated: Heart, Not Evaluated: Lungs, Not Evaluated: Extremities, Not Evaluated: Abdomen, Not Evaluated: Skin and Not Evaluated: Neurological Plan Diagnosis/Plan: Unchanged I have reviewed the history and physical and performed a pertinent physical examination on my patient. No changes have occurred unless specified. Left L5-S1 microdiskectomy Time Spent With Patient Time: Total time managing care of this patient today __5__ minutes.
[2024-09-04] MEDS: methocarbamoL 750 MG TABLET PO (12:27)
[2024-09-04] MEDS: Gabapentin 300 MG CAPSULE PO (12:28)
[2024-09-04] MEDS: Lactated Ringers 1,000 ML 100 ML IVCONT (12:33)
[2024-09-04 12:46] LABS: Glucose, Whole Blood 198 mg/dL (60-115)
--- NOTE | 2024-09-04 14:06 | P.OP_ITS ---
Operative Note Operative Note Date of Service: 09/04/24 Narrative: Preoperative diagnosis: Left lumbar radiculopathy due to disc herniation Postoperative diagnosis: Same Procedure: Left L5-S1 microdiskectomy with microscope Surgeon: Antwan Martinez MD, PhD Secondary Connector Armature: BRANDON Mcneil This patient is suffering from a left S1 radiculopathy due to disc herniation.The patient was offered a microdiskectomy to decompress the nerve root. The procedure complications were explained. The patient was consented. The patient was brought to the operating room and endotracheally intubated. The patient was turned in a prone position on the [place] frame. Prepping and draping was done followed by time-out. A mid lumbar incision was made followed by release of the paravertebral muscles on the left side to expose the L5-S1 interspace. An intraoperative x-rays obtained to confirm the correct level. The microscope was brought in. A L5 laminotomy was done followed by opening of the flavum ligament. The S1 nerve root was identified and retracted medially to expose the L5-S1 disc space. I could palpate a large disc herniation medial from the S1 nerve root, which I carefully removed with a pituitary. There was a piece of endplate compressing the nerve root which were removed. The disc space was inspected and any residual disc fragments were removed. This resulted in an excellent decompression of the S1 nerve root. Hemostasis was done. The microscope was removed. Marcaine was injected intramuscularly.The incision was closed in two layers. Steri-Strips used to approximate the incision. An op- site were taken there was used to cover the incision. All sponge and needle counts were correct. Patient was extubated and transported in stable condition to recovery room. this procedure was done with the aid of a physician product development assistant who performed the initial exposure until the microscope was brought in and performed the closure of the incision. Anesthesia: General Blood loss: 20 mL Complications: None Specimen: None Surgical time: 60 minutes Disposition: Discharge home
--- NOTE | 2024-09-04 14:16 | P.DS_ITS ---
DS: Providers Provider Date of Service: 09/04/24 Date of discharge: 09/04/24 Primary care physician: Stan Fletcher MD DS: Summary Time Attestation Discharge Coordination Time (in mins): 15 Quality: Safe Use of Opioids Does Pt have an Active Cancer Diagnosis on the Problem List?: No Quality: Stroke Does the patient have a stroke diagnosis?: No Physical Exam Vital Signs: Vital Signs: Last Vital Signs Temp 98.2 F 09/04/24 12:39 Pulse 68 09/04/24 12:39 Resp 14 09/04/24 12:39 BP 141/86 H 09/04/24 12:39 Pulse Ox 98 09/04/24 12:39 O2 Del Method Room Air 09/04/24 12:39 BMI result Body Mass Index 30.3 DS: Data Data Completed and Pending Completed studies during hospitalization [Text1]: Procedures Excision of Lumbar Vertebral Disc, Open Approach (12/25/22) Fusion of Lumbar Vertebral Joint with Interbody Fusion Device, Posterior Approach, Anterior Column, Open Approach (12/25/22) Fusion of Lumbar Vertebral Joint with Synthetic Substitute, Anterior Approach, Anterior Column, Open Approach (12/25/22) Labs on day of discharge: Laboratory Results - last 24 hr 09/04/24 12:42 POC Glucose 198 H Discharge Plan Discharge Patient Disposition: Home, Self-Care Referrals: tSan Fletcher MD [Primary Care Provider] - 1 Week Discharge Medications: New oxycodone 5 mg tablet 5 mg PO Q6H PRN (Reason: severe pain (scale score 7-10)) Qty: 30 0RF Rx Instructions: Partial Fill upon patient request. Continued tramadol 50 mg tablet 50 mg PO BID PRN (Reason: pain) Qty: 30 0RF gabapentin 300 mg capsule 300 mg PO TID tizanidine 4 mg tablet 4 mg PO Q6-8H PRN (Reason: Pain) acetaminophen 500 mg Tablet 500 mg PO Q6H PRN (Reason: Pain) lisinopril 20 mg tablet 20 mg QAM (DME) Shower Chair Misc See Rx Instructions .Route Qty: 1 0RF Rx Instructions: As directed (DME) cane Device See Rx Instructions .Route Qty: 1 0RF Rx Instructions: As directed Januvia 100 mg tablet 100 mg PO DAILY benzonatate 100 mg capsule 100 mg PO TID PRN (Reason: cough) Qty: 14 0RF fluticasone propionate [Flonase Allergy Relief] 50 mcg/actuation spray,suspension 2 spray intranasal DAILY Qty: 16 0RF Rx Instructions: administer into each nostril albuterol sulfate 90 mcg/actuation HFA aerosol inhaler 2 puff inhalation Q4-6H PRN (Reason: shortness of breath or wheezing) Qty: 6.7 0RF glipizide 5 mg tablet 5 mg PO DAILY cholecalciferol (vitamin D3) 25 mcg (1,000 unit) capsule 25 mcg PO DAILY mecobalamin (vitamin B12) 1,000 mcg tablet,disintegrating 1,000 mcg sublingual DAILY Rx Instructions: place tablet under tongue and allow to dissolve for at least30 secs before swallowing coenzyme Q10 [CoQ-10] 100 mg capsule 100 mg PO DAILY (DME) pen needle, diabetic 31 gauge x 3/16 needle See Rx Instructions .ROUTE QID Qty: 50 Rx Instructions: As directed (DME) insulin syringe-needle U-100 1 mL 31 gauge x 5/16 syringe See Rx Instructions .ROUTE .MEDSUPPLY Qty: 10 Rx Instructions: As directed (DME) blood sugar diagnostic Strip See Rx Instructions Not Applicable TID Qty: 10 Rx Instructions: As directed insulin lispro [Humalog KwikPen Insulin] 100 unit/mL insulin pen 10 - 15 sliding scale dose subcut TID losartan 50 mg tablet 50 mg PO DAILY melatonin 5 mg tablet 5 mg PO BEDTIME PRN (Reason: Insomnia) bisacodyl [Dulcolax (bisacodyl)] 5 mg tablet,delayed release (DR/EC) 20 mg PO ONCE 1 Days Qty: 4 0RF Rx Instructions: take 4 tabs at noon the day before your colonoscopy magnesium citrate Solution 296 ml PO ONCE Qty: 296 1RF Rx Instructions: Drink one bottle at 17:00 and 2nd bottle at 22:00 insulin glargine [Lantus Solostar U-100 Insulin] 100 unit/mL (3 mL) insulin pen 55 unit subcut BEDTIME atorvastatin 40 mg tablet 40 mg PO DAILY hydromorphone [Dilaudid] 2 mg tablet 2 mg PO Q12H PRN (Reason: pain) Qty: 14 0RF Rx Instructions: Partial Fill upon patient request. Held ibuprofen 800 mg tablet 800 mg PO Q8H PRN (Reason: pain) Qty: 90 2RF Hold Instructions: Resume on 09/05/24. aspirin 81 mg Tablet,Delayed Release (/Ec) Hold Instructions: Resume on 09/07/24. Discharge Orders: Discharge Order (Routine); Ordered 09/04/24 Ordered By: Pasquale Willams Diet: Advance to usual diet Activity on Discharge: As tolerated Activity Restrictions/Additional Instructions: After your spinal surgery we ask you to observe the following restrictions/guidelines: Activity: It is normal to feel some discomfort as you increase your activity, but that will improve with time. We ask you avoid heavy lifting or acitivities that cause pain. As a general rule, 8lbs is a safe limit for lifting right after surgery. Walk as much as you feel comfortable but not to exhaustion. You will feel extra tired the first few days after surgery. Stay well hydrated. It is OK to walk up and down stairs You may return to driving when you are off narcotics (such as vicodin, oxycodone , dilaudid, etc), and you are back to normal functional capacity. If you have any concerns please check with office before driving. Return to work is specific to each patient and each surgery, so please speak with your doctor/PA at first follow up. Please bring paperwork such as FMLA at that time if you need it filled out. Medications: We recommend you take 1,000mg Tylenol every 8 hours for the first few weeks after surgery, if you do not have any liver issues and can tolerate this medication. Do not exceed 4,000mg daily. We will give you a short supply of narcotics after surgery (usually one weeks worth). If you need more please call the office but do not use more than prescribed. You will need to give our office 48 hours notice if you need narcotics refilled and we do not fill narcotics on weekends or evenings. If you are on a narcotic, it is a good idea to take a stool softener such as colace or senna to avoid constipation If you take blood thinner such as aspirin, Plavix, Coumadin, Effient, Eliquis etc for conditions such as Afib, DVT, Pulmonary embolus, coronary disease, stents etc please speak with your surgeon about specific details as to when you can resume these medications. You can resume NSAIDs on post op day 1 (eg: Motrin, Naproxen, etc). Follow up: Please call the office, , after surgery to arrange a 3 week follow up for wound check. Wound Care: You may remove your dressing on the first day after surgery. ?You may ?leave open to air. Please do not remove the steri strips underneath. they will fall off on their own in one week. IT IS NORMAL FOR THE WOUND TO OOZE OR BE BLOODY FOR A FEW DAYS AFTER SURGERY. ?IF THIS HAPPENS JUST PLACE NEW DRESSING OVER IT TO AVOID STAINING CLOTHES. You may shower on post op day # 1 We ask that you do not let the water soak the wound. If it does get wet, just towel dry lightly. Please do not scrub your incision or place any type of chemical/ointment on the wound. No tub baths, pools or jacuzzis for one month. If you have any leaking or redness from your wound, or fevers, please call the office. Print Language: Bengali
[2024-09-04] MEDS: oxyCODONE HCl Immed Release 5 MG TABLET PO (14:40)
[2024-09-04] MEDS: fentaNYL citrate/PF 100 MCG/2 ML VIAL 25 MCG IVPUSH (15:05)
== END 2024-09-04 16:00 | disposition home or self-care (01) ==
PROVIDERS: Nurse Practitioner; PCP Internal Medicine; Visit Provider Neurological Surgery
PROC: (CPT 63030; principal; 2024-09-04 14:00)
DX: M51.26 Other intervertebral disc displacement, lumbar region (principal); M51.16 Intervertebral disc disorders with radiculopathy, lumbar region; G89.4 Chronic pain syndrome; E11.9 Type 2 diabetes mellitus without complications; I10 Essential (primary) hypertension; E78.00 Pure hypercholesterolemia, unspecified; H91.90 Unspecified hearing loss, unspecified ear; Z79.84 Long term (current) use of oral hypoglycemic drugs; Z79.82 Long term (current) use of aspirin; Z88.2 Allergy status to sulfonamides; Z88.8 Allergy status to other drugs, medicaments and biological substances; L23.1 Allergic contact dermatitis due to adhesives; Z98.890 Other specified postprocedural states
CPT/HCPCS: 63030; 36415; 80048; 82947; 83036; 85027; 93005; J0131; J0690; J1885; J2003; J2371; J2405; J2704; J3010

== ENCOUNTER → 2024-09-04 11:37 | Outpatient (BNV) | payer MEDICARE, MEDICAID, SELFPAY | PROVIDERS: PCP Internal Medicine; Visit Provider Neurological Surgery | DX: M51.16 Intervertebral disc disorders with radiculopathy, lumbar region (principal) | CPT/HCPCS: 63030; 99499 ==

== ENCOUNTER → 2024-09-25 12:55 | Outpatient (BNVA) | payer MEDICARE, MEDICAID, SELFPAY | PROVIDERS: PCP Internal Medicine; Visit Provider Physician Assistant | DX: M51.26 Other intervertebral disc displacement, lumbar region (principal); Z47.89 Encounter for other orthopedic aftercare; Z98.890 Other specified postprocedural states | CPT/HCPCS: 99212 ==

== ENCOUNTER 2024-10-17 07:32 | Outpatient (REF) | payer MEDICARE, MEDICAID, SELFPAY ==
--- NOTE | ~2024-10-17 | XR_ITS ---
EXAMINATION: XR HIP, LEFT CLINICAL INFORMATION: M25.552 - Pain in left hip COMPARISON: November 29, 2017. TECHNIQUE: Two views of the left hip. AP pelvis. FINDINGS: Sclerosis and the articular surfaces both the right and left acetabulum. Asymmetric joint space narrowing involving both coxofemoral joints more conspicuous on the right side. No acute cortical disruption or malalignment. No lytic or blastic lesions. Status post posterior L4-L5 fusion and intervertebral disc spacer placement no fully included. Vascular calcifications. XR/XR hip LT min 2V IMPRESSION: Mild osteoarthrosis left hip without acute fracture or dislocation. Mild to moderate osteoarthrosis right hip. Electronically signed by: Dion Cortez MD 10/17/2024 10:10 AM IRVIN
--- OUTSIDE RECORDS SUMMARY | 2024-10-18 07:35 | XMS_ITS | Encounter Summary ---
Author Organization [employer] Address [address] [place] [address] Care Team Providers Care Saddle Maker Name Role Phone Stan Fletcher MD Primary Care Provider +1- [phone] Encounter Details Date Type Department Care Team ([facility] Contact Info) Description 08/23/2023 Orders Only [facility] MED & PEDS [address] [place] [address] Stan Fletcher MD [address] [place] [address] Social History Tobacco Use Types Packs/Day Years [...] Upcoming Encounters Date Type Department Care Team ([facility] Contact Info) Description 11/12/2024 10:45 AM EDT Office Visit [facility] MED & PEDS [address] [place] [address] Stan Fletcher MD [address] [place] [address] documented as of this encounter Visit Diagnoses Not on filedocumented in this encounter Care Teams Saddle Maker Relationship Specialty Start Date End Date Stan Fletcher MD [address] [place] [address] PCP - General Internal Medicine 08/20/18 documented as of this encounter
--- OUTSIDE RECORDS SUMMARY | 2024-10-18 07:35 | XMS_ITS | Encounter Summary ---
Author Organization [employer] Address [address] [place] [address] Care Team Providers Care Manager Leasing Name Role Phone Stan Fletcher MD Primary Care Provider [phone]- [phone] Reason for Visit * Reason Onset Date Comments Durable Medical Equipment 01/26/2023 Encounter Details Date Type Department Care Team ([facility] st Contact Info) Description 01/26/2023 Telephone [facility] MED & PEDS [address] [place], [place] [phone] Stan Fletcher MD [address] [place] [address] Durable Medical Equipment Social History Tobacco Use [...] a script and PA for a Freestyle minog 2 sensor/glucose monitor. Would like itto be sent to [facility]. For clarification, please contact pt at [phone] (Sign language) documented in this encounter Plan of Treatment Upcoming Encounters Date Type Department Care Team ([facility] st Contact Info) Description 11/12/2024 10:45 AM EDT Office Visit [facility] MED & PEDS [address] [place] [address] Stan Fletcher MD [address] [place] [address] documented as of this encounter Visit Diagnoses Diagnosis Type 2 diabetes mellitus without complication, with long-term current use of insulin ([facility] Primary documented in this encounter Care Teams Manager Leasing Relationship Specialty Start Date End Date Stan Fletcher MD [address] [place] [address] PCP - General Internal Medicine 08/20/18 documented as of this encounter
--- OUTSIDE RECORDS SUMMARY | 2024-10-18 07:35 | XMS_ITS | Encounter Summary ---
Author Organization [employer] [facility] Address [address] [place] [address] Care Team Providers Care Body Art Technician Name Role Phone Stan Fletcher MD Primary Care Provider +1- [phone] Reason for Visit * Reason Comments Med Refill Encounter Details Date Type Department Care Team (Late st Contact Info) Description 03/20/2023 Refill [facility] MED & PEDS [address] [place] [address] Stan Fletcher MD [address] [place] [address] Type 2 diabetes mellitus with hyperglycemia, with long-term current use of insulin ([facility]) Social History Tobacco Use Types Packs/Day Years [...] [facility] [address] [place] [address] Stan Fletcher MD [address] [place] [address] documented as of this encounter Visit Diagnoses Diagnosis Type 2 diabetes mellitus with hyperglycemia, with long-term current use of insulin ([facility]) documented in this encounter Care Teams Body Art Technician Relationship Specialty Start Date End Date Stan Fletcher MD [address] [place] [address] PCP - General Internal Medicine 08/20/18 documented as of this encounter
--- OUTSIDE RECORDS SUMMARY | 2024-10-18 07:36 | XMS_ITS | Data Portability ---
Author Organization [employer] [facility] [employer] [facility] [employer] Address [address] [place] [phone] Care Team Providers Care Sieve Maker Name Role Phone [facility] Referring Provider Assessment No assessment recorded. Plan of Treatment Reminders Order Date Submit Date Provider Last Modified By Organization Details Last Modified Time Details Appointments None recorded. Lab None recorded. Referral None recorded. Procedures None recorded. Surgeries None recorded. Imaging None recorded. Medication Orders azithromyci n 250 mg tablet 2022 [id number], [address] [place], [address], 10:33:17 Flovent HFA 44 mcg/actuati on aerosol inhaler 2022 023 [facility][id number], [address] [place], [address], 10:33:17 Patient TargetsNo targets recorded. Patient InstructionsNo [...] SNOMED-CT Code Diagnosis ICD10 Code Diagnosis Note [id number] Kiana Rojas MD Main - [facility] [address] [place] [phone] 05/23/2023 10:14:23 05/24/2023 00:31:53 Cough [id number] R05.9 I provided real -time medical direction via phone for this encounter, and was available for additional phone based assistance as needed. I have reviewed and agree with the Assessment and Plan as documented by the Pizza Chef. Patient given the opportunit y to ask [...] Liang Member ID Guarantor Name 05/23/2023 1 [facility] - DOS ON OR AFTER 2022 - DUAL ELIGIBLE - DETENTION OPTIONS AND ONE CARE (MEDICARE REPLACEMENT/AD VANTAGE - HMO) Nick Escobar [id number] Nick Escobar Notes Date Note Type Note [...] Advised no further Prednisone until evaluated by [facility] fuel retrofitting technician. ................... ................... ................... ................... ................... ................... ................... ........ CRC Nursing Assessment: Comments: Reviewed = Deuce VASQUES ................... ................... ................... ................... ................... ................... ................... ........ Pizza Chef Note From Isaiah Green: Pt reports that [...] ........ Disposition: Fulfilled Kiana Rojas MD [address] [facility],[address], [place], [address], [place] 05/23/2023 23:34:00
--- OUTSIDE RECORDS SUMMARY | 2024-10-18 07:36 | XMS_ITS | Encounter Summary ---
Author Organization [employer] Address [address] [place] [address] Care Team Providers Care Steel Molder Name Role Phone Stan Fletcher MD Primary Care Provider [phone] [phone] Reason for Referral * Consultation (Routine) - Pending Review Specialty Diagnoses / Procedures Referred By Contivan t Referred To Contact Gastroenterology Diagnoses Positive colorectal cancer screening using Cologuard test Stan Fletcher MD [address] [place] [address] Phone: tel: fax: Neli Jaeger MD [address] [place] [address] Phone: tel: fax: Referral ID Status Reason Start Date Expiration Date Visits Requested Visits Authorized [id number] Pending Review Specialty Services Required 12/14/2023 12/13/2024 1 1 Encounter Details Date Type Department Care Team ([facility] st Contact Info) Description 12/14/2023 Orders Only [facility] MED & PEDS [address] [place], [place] [phone] Stan Fletcher MD [address] [place] [address] Positive colorectal cancer screening using Cologuard test [...] Upcoming Encounters Date Type Department Care Team ([facility] st Contact Info) Description 11/12/2024 10:45 AM EDT Office Visit [facility] MED & PEDS [address] [place] [address] Stan Fletcher MD [address] [place] [address] Scheduled Referrals Name Type Priority Associated Diagnoses [...] documented as of this encounter Care Teams Steel Molder Relationship Specialty Start Date End Date Stan Fletcher MD [address] [place] [address] PCP - General Internal Medicine 08/20/18 documented as of this encounter
--- OUTSIDE RECORDS SUMMARY | 2024-10-18 07:36 | XMS_ITS | Encounter Summary ---
Author Organization [employer] Address [address] [place] [address] Care Team Providers Care Marketing Outreach Coordinator Name Role Phone Stan Fletcher MD Primary Care Provider [phone] Reason for Referral * Consultation (Routine) - Authorized Specialty Diagnoses / Procedures Referred By Contivan yang Referred To Contact Orthopaedic Surgery Diagnoses Greater trochanteric bursitis of left hip Stan Fletcher MD [address] [place] [address] Phone: tel: fax: [facility] [address] [place] [address] Phone: tel: Referral ID Status Reason Start Date Expiration Date Visits Requested Visits Authorized [id number] Authorized Specialty Services Required 09/11/2024 09/11/2025 1 1 Encounter Details Date Type Department Care Team (Latest Contact Info) Description 09/11/2024 9:45 AM EST Office Visit [facility] MED & PEDS [address] [place] [address] Stan Fletcher MD [address] [place] [address] Herniation of intervertebral disc between L4 and L5 (Primary Dx); Anterolisthesis; Greater trochanteric bursitis of left hip; Type 2 diabetes mellitus without complication, with long-term current use of insulin ([facility]) Social History Tobacco Use Types Packs/Day [...] for No chief complaint on file.. HPI Ems Driver: Ale ( [place] Sign Language) 139634 S/p lumbar spine surgery September 04, 2024. [...] (one) time each day. Continuous Blood Gluc Access Control Specialist (FreeStyle Cathryn 2 [place]) device To use daily 1 each 0 Continuous Blood Gluc Sensor (FreeStyle Cathryn 2 Sensor) [facility] To use daily 2 each 11 Continuous Glucose Access Control Specialist (FreeStyle Cathryn 2 [place]) device Scan sensor every 8 hours 1 each 0 Continuous Glucose Sensor (FreeStyle Cathryn 2 Sensor) [facility] Apply 1 sensor every 14 days 2 [...] bedtime forconstipation. 60 tablet 0 Tech[employer]ite Pen [place] 32G X 6 MM misc USE FOUR [...] complication, with long-term current use of insulin ([facility]) Comments: Stable No change Low-carb diet Continue with same meds. Orders: - POCT Glucose - POCT HGB A1C H/o Deafness. Dx : H91.93. Mr has expressed the desire to use the Ubi Duo3 SGD and to be referred to a speech language pathologist for kacie augmentative and alternative communication evaluation. Communication has been difficulton many occasions when an machine guide base winder is not available or because of technical difficulties. documented in this encounter Plan of Treatment Upcoming Encounters Date Type Department Care Team (Late st Contact Info) Description 11/12/2024 10:45 AM EDT Office Visit [facility] MED & PEDS [address] [place] [address] Stan Fletcher MD [address] [place], [place] [phone] Scheduled Referrals Name Type Priority Associated Diagnoses Orde r Schedule Referral to Orthopaedic Surgery Outpatient Referral Routine Greater trochanteric bursitis of left hip Expected: 09/11/2024 (Approximate), Expires: 09/11/2025 documented as of this encounter Procedures Procedure Name Priority Date/Time Associated Diagnosis Comments POCT GLYCATED HEMOGLOBIN, TOTAL Routine 09/11/2024 10:40 AM EST Type 2 diabetes mellitus without complication, with long-term current use of insulin ([facility]) POCT GLUCOSE Routine 09/11/2024 10:39 AM EST Type 2 diabetes mellitus without complication, with long-term current use of insulin ([facility]) documented in this encounter Results * (ABNORMAL) POCT HGB A1C (09/11/2024 10:40 AM EST) Hemoglobin A1C 8.0(A) 4.0 - 6.0 % QC Media Lot # [id number] Lot# Expiration Date [id number] Blood 09/11/2024 10:4 0 AM EST Stan Fletcher MD POINT OF CARE TEST ENTER/ED IT ORDERABLES Final Result * (ABNORMAL) POCT Glucose (09/11/2024 10:39 AM EST) Glucose Blood, POC 213(A) 60 - 200 mg/dL QC Media Lot # [id number] Lot# Expiration Date 331, Blood Capillary blood specimen / Unknown 09/11/2024 10:39 AM EST Stan Fletcher MD POINT OF CARE TEST ENTER/ED IT ORDERABLES Final Result documented in this encounter Visit Diagnoses Diagnosis Herniation of intervertebral disc between L4 and L5- Primary Anterolisthesis Greater trochanteric bursitis of left hip Type 2 diabetes mellitus without complication, with long-term current use of insulin ([facility]) documented in this encounter Additional Health Concerns Assessment Noted Time PHQ-9 Depression Total Score: 5 11/08/19 24 2:49 PM EDT documented as of this encounter Care Teams Marketing Outreach Coordinator Relationship Specialty Start Date End Date Stan Fletcher MD [address] [place] [address] PCP - General Internal Medicine 08/20/18 documented as of this encounter
--- OUTSIDE RECORDS SUMMARY | 2024-10-18 07:36 | XMS_ITS | Clinical Summary ---
Author Organization [employer] Address [address] [place] [address] 7 [place] [address] Care Team Providers Care Assistant Professor Name Role Phone Stan Fletcher MD Primary Care Provider +1- [phone] Allergies Active Allergy Reactions Criticality Noted Date [...] mL 11 2022 Active Continuous Blood Gluc Compound Finisher (FreeStyle Cathryn 2 [place]) deviceIndications:Type 2 diabetes mellitus without complication, with long-term current use of insulin ([facility]) To use daily 1 each 2022 Active Continuous Blood Gluc Sensor (FreeStyle Cathryn 2 Sensor) miscIndications:Type 2 diabetes mellitus without complication, with long-term current use of insulin ([facility]) To use daily 2 each 11 2022 [...] hyperglycemia, with long-term current use of insulin ([facility]) INJECT 12 UNITS SUBCUTANEOUSLY THREE TIMES DAILY [...] complication, with long-term current use of insulin ([facility]) Inject 12 Units as directed 3 times [...] 60 capsule 11 03/31 Active Continuous Glucose Compound Finisher (FreeStyle Cathryn 2 [place]) deviceIndications:Type 2 diabetes mellitus without complication, with long-term current use of insulin ([facility]) Scan sensor every 8 hours 1 each 2023 Active Continuous Glucose Sensor (FreeStyle Cathryn 2 Sensor) miscIndications:Type 2 diabetes mellitus without complication, with long-term current use of insulin ([facility]) Apply 1 sensor every 14 days 2 each 2023 Active glucose blood (FreeStyle Precision Anjel Test) test stripIndications:Type 2 diabetes mellitus without complication, with long-term current use of insulin ([facility]) Use to test blood sugar 4 times [...] 30 mL 11 2023 Active TechLite Pen [place] 32G X 6 MM misc USE FOUR [...] Type Department Care Team Description 09/30/2024 Telephone [facility] [address] [place] [address] Stan Fletcher MD Call Back Request 09/29/2024 Refill [facility]INE [address] [place] [address] Stan Fletcher MD Acute pain of left shoulder 09/21/2024 Refill [facility] MED & PEDS [address] [place] [address] Stan Fletcher MD Right sided sciatica 09/11/2024 9:45 AM EST Office Visit [facility] MED & PEDS [address] [place] [address] Stan Fletcher MD Herniation of intervertebral disc between L4 and L5 (Primary Dx); Anterolisthesis; Greater trochanteric bursitis of left hip; Type 2 diabetes mellitus without complication, with long-term current use of insulin ([facility]) 09/11/2024 Travel 09/04/2024 Orders Only GENERIC EXTERNAL DATA DEPARTMENT Provider, Generic External Data 08/25/2024 Orders Only GENERIC EXTERNAL DATA DEPARTMENT Provider, Generic External Data 08/25/2024 Refill [facility] MED & PEDS [address] [place] [address] Stan Fletcher MD Acute pain of left shoulder 08/11/2024 Refill [facility] MED & PEDS [address] [place] [address] Rosemarie Madden MD Right sided sciatica 07/24/2024 Refill [facility] & PEDS [address] [place] [address] Cristhian Cruz MD 07/22/2024 Telephone [facility] MED & PEDS [address] [place], [place] [phone] Stan Fletcher MD Speech Device from Last [...] Description 11/12/2024 10:45 AM EDT Office Visit [facility] MED & PEDS [address] [place] [address] Stan Fletcher MD [address] [place] [address] Health Maintenance Due Date Last Done Comments [...] complication, with long-term current use of insulin ([facility]) POCT GLUCOSE Routine 09/11/2024 10:39 AM EST Type 2 diabetes mellitus without complication, with long-term current use of insulin ([facility]) FL GUIDANCE IN OR Routine 09/04/2024 1:0 [...] HGB A1C (09/11/2024 10:40 AM EST) Pathologist [facility] Hemoglobin A1C 8.0(A) 4.0 - 6.0 % QC Media Lot # [id number] Lot# Expiration Date [id number] Blood 09/11/2024 10:4 0 AM EST Stan Fletcher MD POINT OF CARE TEST ENTER/ED IT ORDERABLES Final Result * (ABNORMAL) POCT Glucose (09/11/2024 10:39 AM EST) Pathologist [facility] Glucose Blood, POC 213(A) 60 - 200 [...] EST Narrative 09/05/2024 2:02 PM EST ? [facility] ?[address] ?[place] [address] ? Fluoroscopy Report ? Signed ? Patient: Labsherry,Nick ?MR#: [id number] ?? [id number] ? : 1960 ?Acct:[id number] ? Age/Sex: 63 / M ?ADM Date: 09/04/24 ? Loc: HO.SSS ? Attending Dr: Antwan Martinez MD, PhD ? Ordering Physician: Antwan Martinez MD, PhD ?? Date of Service: 09/04/24 ?? Procedure(s): FL guidance in OR ?? Accession Number(s): [id number] ? cc: Stan Fletcher MD; Antwan Martinez [...] DD/ 1305 ? TD/TT: 09/04/24 1345 ? Travel Physical Therapist: ? Procedure Note Donotuseinterpreter, Image - 09/05/[address] [address] Fluoroscopy Report Signed Patient: Nick EscobarMR#: [id number] : 1960Acct:[id number] Age/Sex: 63 / MADM Date: 09/04/24 Loc: HO.SSS Attending Dr: Antwan Martinez MD, PhD Ordering Physician: Antwan Martinez MD, PhD Date of Service: 09/04/24 Procedure(s): FL guidance in OR Accession Number(s): [id number] cc: Stan Fletcher MD; Antwan Martinez MD, [...] 09/05/24 1359 DD/ 1305 TD/TT: 09/04/24 1345 Travel Physical Therapist: us [facility] External Provider IMG IR PROCEDURES Edited Result - Final * (ABNORMAL) Glucose, Whole Blood (09/04/2024 12:42 PM EST) Glucose, Whole Blood 198(H) 60 - 115 mg/dL [facility] Comment:METER #: [id number] 09/04/2024 12:4 2 PM EST 09/04/2024 12:45 PM EST us Generic External Data Provider LAB BLOOD ORDERAB LES Final Result [facility] [address] [place] [address] [phone] * (ABNORMAL) CBC (08/25/2024 11:15 AM EST) [facility] White Blood Count 5.5 4.8 - 10.8 X10*3/uL [facility] Red Blood Count 4.24(L) 4.60 - 5.80 X10*6/uL [facility] Hemoglobin 13.7(L) 14.0 - 18.0 g/dl [facility] Hematocrit 39.6(L) 42.0 - 52.0 % [facility] Mean Corpuscular Volume 93.4 80.0 - 98.0 fL [facility] Mean Corpuscular Hemoglobin 32.3 27.0 - 33.0 pg [facility] Mean Corpuscular HGB Conc 34.6 31.0 - 36.0 g/dl [facility] Red Cell Distribution Width 12.5 11.0 - 16.0 % [facility] Platelet Count 174 160 - 400 X10*3/uL [facility] Mean Platelet Volume 10.0 9.4 - 12.4 fL [facility] NRBC Pct Auto 0.0 0.0 - 0.2 /100WBC [facility] NRBC Abs Auto 0.000 0.0 - 0.012 X10*3/uL [facility] 08/25/2024 11:1 5 AM EST 08/25/2024 11:15 AM EST Generic External Data Provider LAB BLOOD ORDERAB LES Final Result Performing Organization Address [facility] Co de Phone Number [facility] [address] [place] [phone] * (ABNORMAL) Hemoglobin A1c (08/25/2024 11:15 AM EST) Hemoglobin A1c 8.2(H) <6.0 % [facility] Comment:Hemoglobin A1C Refer ence Range Adults: 4.8 - 6.0 % Non diabetic: < 6.0 % Goal: < 7.0 %Additional Action Suggested: > 8.0 %Note: Hemoglobin A1c results are invalid for patients with abnormal amounts of HbF. Blood transfusions may impact the HbA1c concentration in the patient sample. Estimated Average Glucose 189 mg/dL [facility] Comment:eAG = Estimated ave rage glucose which is %A1C expressed asaverage glucose, using the formula of the B5D-CiabmrzYzoqxjz Glucose study (ADAG), Diabetes Care, Vol.31,#8,Mar. 2007 08/25/2024 11:1 5 AM EST 08/25/2024 11:15 AM EST [employer] External Data Provider LAB BLOOD ORDERAB LES Final Result Performing Organization Address [facility] Co de Phone Number [facility] [address] [place] [phone] * (ABNORMAL) Basic Metabolic Panel (08/25/2024 11:15 AM EST) Sodium 141 135 - 145 mmol/L [facility] Potassium 4.1 3.3 - 5.1 mmol/L [facility] Chloride 107 96 - 108 mmol/L [facility] Carbon Dioxide 27 22 - 29 mmol/L [facility] Anion Gap 11(L) 12 - 20 [facility] Urea Nitrogen (BUN) 21(H) 9 - 16 mg/dL [facility] Creatinine, Serum 1.22 0.5 - 1.4 mg/dL [facility] Creatinine Clr Calc Pharmacy 69.4 [facility] Comment:eGFR (calculated fro m the MDRD study equation) and eCrCl(calculated from the Cockcroft-Gault equation) are based ondifferent parameters and may not yield comparable results.If eCrCl result is absurd, please check patient'sheight/weight. Estimated Glomerular Filt Rate >60 [facility] Comment:Chronic Kidney Disea se: Estimated GFR < 60 mL/min/1.25e7Rynref Kidney Disease: Estimated GFR < 15 mL/min/1.73m2 Glucose 144(H) 60 - 115 mg/dL [facility] Calcium 9.5 8.4 - 10.2 mg/dL [facility] 08/25/2024 11:1 5 AM EST 08/25/2024 11:15 AM EST us Generic External Data Provider LAB BLOOD ORDERAB LES Final Result [facility] [address] [place] [phone] * (ABNORMAL) Cologuard?? colon cancer screening (12/06/2023 7:58 AM EDT) Cologuard Result Positive( A) Negative 12/13/2023 5:48 PM EDT [employer] (CLIA #:[id number]) Comment: POSITIVE TEST RESULT. A positive Cologuard [...] (Saritha Otto al, N Engl J Med 2014;370(14):9019-2673.) Cologuard may produce a false negative or false positive result (no colorectal cancer or precancerous polyp present at colonoscopy follow up). A negative Cologuard test result does not guarantee the absence of CRC or advanced adenoma (pre-cancer). The current Cologuard screening interval is every 3 years. ([place] [employer] Society and U.S. Multi-Society Task Force). Cologuard performance data in a 10,000 patient pivotal study using colonoscopy as the reference method can be accessed at the following location: www.[email or web address]/results. Additional description of the Cologuard test process, warnings and precautions can be found at www.[email or web address]. Stool specimen (specimen) Rectal contents / Unknown 12/06/2023 7:58 AM EDT 12/07/2023 10:55 AM EDT Stan Fletcher MD LAB MOLECULAR DIAGNOSTICS O RDERABLES Final Result [employer] (CLIA #:[id number]) [place] [address] [address], from Last 3 Months or Most Recently Relevant to Health Maintenance Insurance [facility] DUAL COMPLETE [facility] MEDICARE ADVANTAGE HMO * Guarantor: Nick Escobar Account Type Relation to Patient Date of Phone Billing Address Personal/Family Self [address] [place] Care Teams Assistant Professor Relationship Specialty Start Date End Date Stan Fletcher MD [address] [place] [address] [place] [address] PCP - General Internal Medicine 08/20/18
--- OUTSIDE RECORDS SUMMARY | 2024-10-18 07:36 | XMS_ITS | Encounter Summary ---
Author Organization [employer] Address [address] [place] [address] Care Team Providers Care Forest Fire Officer Name Role Phone Stan Fletcher MD Primary Care Provider +1- [phone] Reason for Visit * Reason Onset Date Comments Nurse Triage 08/23/2023 Encounter Details Date Type Department Care Team ([facility] st Contact Info) Description 08/23/2023 Telephone [facility] MED & PEDS [address] [place], [place] [phone] Stan Fletcher MD [address] [place] [address] Nurse Triage Social History Tobacco Use Types [...] 3:50 PM EST Called pt. Back via statistical developer #[id number]. Called pt. Asked him if he has any Covid tests at home to test himself for Covid. Pt. States he has a test at home but, he currently at Pharmacy picking up some OTC cough medicine. I will call pt. Back at 430pm to see what Covid test result is as pt. States he lives [place] from [facility]. Called pt. Back via statistical developer #[id number]. Pt. Took Covid test and it came out Negative. Pt. ShowedASL neurology hospitalist over video and she states that only the control line is showing and only 1 line on home Covid test. Advised pt. That per Dr. Fletcher he would like pt. To go to Walk in at [facility] tomorrow 08/23/2023 in the am to get his lungs listened to and to assess left lung congestion. Pt. States understanding and will go to walk in at [facility] at 830am when walk in opens. * Telephone Encounter - Vivi Salazar RN - 08/23/2023 2:53 PM EST Called pt. Back via statistical developer. County Surveyor #[id number]. Pt. States that he has a productive [...] accepted this outcome Please contact pt @ [phone] Sign Language documented in this encounter Plan of Treatment Upcoming Encounters Date Type Department Care Team ([facility] st Contact Info) Description 11/12/2024 10:45 AM EDT Office Visit [facility] MED & PEDS [address] [place] [address] Stan Fletcher MD [address] [place] [address] documented as of this encounter Visit Diagnoses Not on filedocumented in this encounter Care Teams Forest Fire Officer Relationship Specialty Start Date End Date Stan Fletcher MD [address] [place] [address] PCP - General Internal Medicine 08/20/18 documented as of this encounter
--- OUTSIDE RECORDS SUMMARY | 2024-10-18 07:36 | XMS_ITS | Encounter Summary ---
Author Organization [employer] Address [address] [place] [address] Care Team Providers Care Regional Sales Trainer Name Role Phone Stan Fletcher MD Primary Care Provider +1- [phone] Encounter Details Date Type Department Care Team ([facility] Contact Info) Description 07/16/2023 Orders Only [facility] & PEDS [address] [place] [address] Stan Fletcher MD [address] [place] [address] Social History Tobacco Use Types Packs/Day Years [...] Upcoming Encounters Date Type Department Care Team ([facility] Contact Info) Description 11/12/2024 10:45 AM EDT Office Visit [facility] & PEDS [address] [place] [address] Stan Fletcher MD [address] [place] [address] documented as of this encounter Procedures Procedure Name Priority Date/Time Associated Diagnosis Comments MR SHOULDER WO CONTRAST LEFT Routine 08/07/2023 8:15 AM EST documented in this encounter Results * MR Shoulder w/o Contrast Left (08/07/2023 8:15 AM EST) Anatomical Region Laterality Modality Upper Extremities, Shoulder Left Magn etic Resonance 08/07/2023 8:15 AM EST Narrative 08/07/2023 3:29 PM EST ? [facility] ?[address] ?[place] [address] ? Magnetic Resonance Report ? Signed ? Patient: Labrecrasheed,Nick ?MR#: [id number] ?? [id number] ? : 1960 ?Acct:[id number] ? Age/Sex: 62 / M ?ADM Date: 08/07/23 ? Loc: HO.MRI ? Attending Dr: Eddie Lawler MD ? Ordering Physician: Eddie Lawler MD ?? Date of Service: 08/07/23 ?? Procedure(s): MR shoulder LT wo con ?? Accession Number(s): [id number] ? cc: Stan Fletcher MD; Eddie Lawler MD ? EXAMINATION: ?? MR SHOULDER WITHOUT CONTRAST, LEFT ? CLINICAL INFORMATION: ?? Posterior left shoulder and arm pain since 06/23/2023. Impingement ?? syndrome. ? COMPARISON: ?? Left shoulder radiographs dated 06/26/2023. ? TECHNIQUE: ?? MRI of the shoulder was performed using routine sequences on a ?? high-field scanner. ? FINDINGS: ? ROTATOR CUFF: Fpvj-xl-phrfzjxe supraspinatus tendinosis with anterior ?? bursal surface [...] LT wo con ?? IMPRESSION: ?? 1. Wglb-dr-tysalzus supraspinatus tendinosis with anterior bursal ?? surface [...] 1526 ? DD/ 0815 ? TD/TT: ? Director Client: SR ? Procedure Note Eugenio Casey - 08/07/2023 [place] [id number] [place] [address] Magnetic Resonance Report Signed Patient: Nick Escobar#: [id number] : 1960Acct:[id number] Age/Sex: 62 / MADM Date: 08/07/23 Loc: HO.MRI Attending Dr: Eddie Lawler MD Ordering Physician: Eddie Lawler MD Date of Service: 08/07/23 Procedure(s): MR shoulder LT wo con Accession Number(s): [id number] cc: Stan Fletcher MD; Eddie Lawler MD EXAMINATION: MR SHOULDER WITHOUT CONTRAST, LEFT CLINICAL INFORMATION: Posterior left shoulder and arm pain since 06/23/2023. Impingement syndrome. COMPARISON: Left shoulder radiographs dated 06/26/2023. TECHNIQUE: MRI of the shoulder was performed using routine sequences on a high-field scanner. FINDINGS: ROTATOR CUFF: Enay-xg-zjapypqf supraspinatus tendinosis with anterior bursal surface fraying [...] MR/MR shoulder LT wo con IMPRESSION: 1. Bevv-db-xpttpdqf supraspinatus tendinosis with anterior bursal surface fraying [...] in OV> 08/07/23 1526 DD/ 0815 TD/TT: Director Client: [facility] External Provider IMG MRI PROCEDURES Final Result documented in this encounter Visit Diagnoses Not on filedocumented in this encounter Care Teams Regional Sales Trainer Relationship Specialty Start Date End Date Stan Fletcher MD [address] [place] [address] PCP - General Internal Medicine 08/20/18 documented as of this encounter
--- OUTSIDE RECORDS SUMMARY | 2024-10-18 07:36 | XMS_ITS | Encounter Summary ---
Author Organization [employer] Address [address] [place] [address] Care Team Providers Care Wheat And Oats Flake Miller Name Role Phone Stan Fletcher MD Primary Care Provider +1- [phone] Reason for Visit * Reason Comments Med Refill Encounter Details Date Type Department Care Team ([facility] Contact Info) Description 01/09/2023 Refill [facility] MED & PEDS [address] [place] [address] Stan Fletcher MD [address] [place] [address] Social History Tobacco Use Types Packs/Day Years [...] Description 11/12/2024 10:45 AM EDT Office Visit [facility] MED & PEDS [address] [place] [address] Stan Fletcher MD [address] [place], [place] [phone] documented as of this encounter Visit Diagnoses Not on filedocumented in this encounter Care Teams Wheat And Oats Flake Miller Relationship Specialty Start Date End Date Stan Fletcher MD [address] [place] [address] [place]ua [address] PCP - General Internal Medicine 08/20/18 documented as of this encounter
--- OUTSIDE RECORDS SUMMARY | 2024-10-18 07:36 | XMS_ITS | Encounter Summary ---
Author Organization [employer] Address [address] [address] Care Team Providers Care Starch Crab Name Role Phone Stan Fletcher MD Primary Care Provider +1- [phone] Reason for Visit * Reason Onset Date Comments Call Back Request 09/30/2024 Encounter Details Date Type Department Care Team ([facility] st Contact Info) Description 09/30/2024 Telephone [facility] MEDICINE [address] [place] [address] Stan Fletcher MD [address] [place], [place] [phone] Call Back Request Social History Tobacco Use [...] Castellanos LPN - 10/01/2024 8:50 AM EST Boiler House Operator spoke with katty regarding message below, Form that was faxed needed a correction , re faxed Tc from Katty with [facility] requesting a call back regarding DME form that was sent today 09/30/24. Contact Katty at [phone] * Telephone Encounter - Manish Saldana - 09/30/2024 3:10 PM EST Tc from Katty with [facility] requesting a call back regarding DME form that was sent today 09/30/24. Contact Katty at [phone] documented in this encounter Plan of Treatment Upcoming Encounters Date Type Department Care Team (Late st Contact Info) Description 11/12/2024 10:45 AM EDT Office Visit [facility] MED & PEDS [address] [place] [address] Stan Fletcher MD [address] [place] [address] documented as of this encounter Visit Diagnoses Not on filedocumented in this encounter Additional Health Concerns Assessment Noted Time PHQ-9 Depression Total Score: 5 11/08/19 24 2:49 PM EDT documented as of this encounter Care Teams Starch Crab Relationship Specialty Start Date End Date Stan Fletcher MD [address] [place] [phone] PCP - General Internal Medicine 08/20/18 documented as of this encounter
--- OUTSIDE RECORDS SUMMARY | 2024-10-18 07:36 | XMS_ITS | Encounter Summary ---
Author Organization [employer] Address [address] [place] [address] [place] [address] Care Team Providers Care Powerhouse Electrician Name Role Phone Stan Fletcher MD Primary Care Provider +[phone] Reason for Visit * Reason Comments Med Refill Encounter Details Date Type Department Care Team ([facility] st Contact Info) Description 09/21/2024 Refill [facility] MED & PEDS [address] [place], [place] [phone] Stan Fletcher MD [address] [place] [address] Right sided sciatica Social History Tobacco Use [...] Upcoming Encounters Date Type Department Care Team ([facility] st Contact Info) Description 11/12/2024 10:45 AM EDT Office Visit [facility] MED & PEDS [address] [place] [address] Stan Fletcher MD [address] [place] [address] documented as of this encounter Visit Diagnoses Diagnosis Right sided sciatica Sciatica documented in this encounter Additional Health Concerns Assessment Noted Time PHQ-9 Depression Total Score: 5 11/08/19 24 2:49 PM EDT documented as of this encounter Care Teams Powerhouse Electrician Relationship Specialty Start Date End Date Stan Fletcher MD [address] [place] [address] PCP - General Internal Medicine 08/20/18 documented as of this encounter
--- OUTSIDE RECORDS SUMMARY | 2024-10-18 07:36 | XMS_ITS | Encounter Summary ---
Author Organization [employer] Address [address] [place] [address] Care Team Providers Care Presentation Designer Name Role Phone Stan Fletcher MD Primary Care Provider +1 [phone] Reason for Visit * Reason Comments Med Refill Encounter Details Date Type Department Care Team (Late st Contact Info) Description 09/29/2024 Refill [facility] MEDICINE [address] [place] [address] Stan Fletcher MD [address] [place], [place] [phone] Acute pain of left shoulder Social History [...] Upcoming Encounters Date Type Department Care Team ([facility] st Contact Info) Description 11/12/2024 10:45 AM EDT Office Visit [facility] MED & PEDS [address] [place] [address] Stan Fletcher MD [address] [place] [address] documented as of this encounter Visit Diagnoses Diagnosis Acute pain of left shoulder documented in this encounter Additional Health Concerns Assessment Noted Time PHQ-9 Depression Total Score: 5 11/08/19 24 2:49 PM EDT documented as of this encounter Care Teams Presentation Designer Relationship Specialty Start Date End Date Stan Fletcher MD [address] [place] [address] PCP - General Internal Medicine 08/20/18 documented as of this encounter
--- OUTSIDE RECORDS SUMMARY | 2024-10-18 07:36 | XMS_ITS | Encounter Summary ---
Author Organization [employer] Address [address] [place] [address] Care Team Providers Care Gastroenterology Professor Name Role Phone Stan Fletcher MD Primary Care Provider [phone] Reason for Visit * Reason Comments Med Refill Encounter Details Date Type Department Care Team (Late st Contact Info) Description 08/29/[address] [facility] MED & PEDS [address] [place] [address] Stan Fletcher MD [address] [place] [address] Chronic pain syndrome Social History Tobacco Use [...] Description 11/12/2024 10:45 AM EDT Office Visit [facility] [address] [place] [address] Stan Fletcher MD [address] [place] [address] documented as of this encounter Visit Diagnoses Diagnosis Chronic pain syndrome documented in this encounter Care Teams Gastroenterology Professor Relationship Specialty Start Date End Date Stan Fletcher MD [address] [place] [address] PCP - General Internal Medicine 08/20/18 documented as of this encounter
--- OUTSIDE RECORDS SUMMARY | 2024-10-18 07:36 | XMS_ITS | Encounter Summary ---
Author Organization [employer] Address [address] [place] [address] Care Team Providers Care Category Development Manager Name Role Phone Stan Fletcher MD Primary Care Provider [phone] Reason for Referral * Imaging (STAT) - Closed Specialty Diagnoses / Procedures Referred By Contac t Referred To Contact Cardiology Diagnoses Palpitations Procedures Transthoracic Echo (TTE) Complete Stan Fletcher MD [address] [place] [address] Phone: tel: fax: [facility] Referral ID Status Reason Start Date Expiration Date V isits Requested Visits Authorized [id number] Closed Perform Procedure 12/11/2022 12/11/2023 1 1 Encounter Details Date Type Department Care Team ([facility] Contact Info) Description 12/07/2022 Orders Only [facility] PEDS [address] [place] [address] Stan Fletcher MD [address] [place] [address] Palpitations (Primary Dx) Social History Tobacco Use [...] 10:45 AM EDT Office Visit [facility] MED & PEDS [address] [place] [address] Stan Fletcher MD [address] [place] [address] Scheduled Orders Name Type Priority Associated Diagnoses Order Schedule Transthoracic Echo (TTE) Complete Echocardiography STAT Palpitations Expected: 12/11/2022 (Approximate), Expires: 12/11/2024 documented as of this encounter Visit Diagnoses Diagnosis Palpitations- Primary documented in this encounter Care Teams Category Development Manager Relationship Specialty Start Date End Date Stan Fletcher MD [address] [place] [address] PCP - General Internal Medicine 08/20/18 documented as of this encounter
--- OUTSIDE RECORDS SUMMARY | 2024-10-18 07:36 | XMS_ITS | Encounter Summary ---
Author Organization [facility] Address [address] [place] [address] Care Team Providers Care Cartographic Aide Name Role Phone Stan Fletcher MD Primary Care Provider [phone] Encounter Details Date Type Department Care Team (Late Contact Info) Description 08/03/2022 Telephone [facility] MED & PEDS [address] [place] [address] Stan Fletcher MD [address] [place] [address] Social History Tobacco Use Types Packs/Day Years [...] [facility] [address] [place] [address] Stan Fletcher MD [address] [place] [address] documented as of this encounter Visit Diagnoses Not on filedocumented in this encounter Care Teams Cartographic Aide Relationship Specialty Start Date End Date Stan Fletcher MD [address] [place] [id number] PCP - General Internal Medicine 08/20/18 documented as of this encounter
--- OUTSIDE RECORDS SUMMARY | 2024-10-18 07:36 | XMS_ITS | Encounter Summary ---
Author Organization [employer] Address [address] [place] [address] Care Team Providers Care Rotary Dryer Operator Name Role Phone Stan Fletcher MD Primary Care Provider [phone]- [phone] Encounter Details Date Type Department Care Team (Late Contact Info) Description 06/27/2023 Orders Only [facility] MED & PEDS [address] [place] [address] Stan Fletcher MD [address] [place] [address] Acute pain of left shoulder (Primary Dx) [...] 10:45 AM EDT Office Visit [facility] MED & PEDS [address] [place] [address] Stan Fletcher MD [address] [place] [address] documented as of this encounter Visit Diagnoses Diagnosis Acute pain of left shoulder- Primary documented in this encounter Care Teams Rotary Dryer Operator Relationship Specialty Start Date End Date Stan Fletcher MD [address] [place] [id number] PCP - General Internal Medicine 08/20/18 documented as of this encounter
--- OUTSIDE RECORDS SUMMARY | 2024-10-18 07:36 | XMS_ITS | Encounter Summary ---
Author Organization [employer] Address [address] [place] [address] Care Team Providers Care Brand Advocate Name Role Phone Stan Fletcher MD Primary Care Provider [phone]- [phone] Reason for Visit * Reason Onset Date Comments Speech Device 07/22/2024 Encounter Details Date Type Department Care Team ([facility] st Contact Info) Description 07/22/2024 Telephone [facility] MED & PEDS [address] [place], [place] [phone] Stan Fletcher MD [address] [place] [address] Speech Device Social History Tobacco Use Types [...] REVIEW AND SIGNATURE,' TC from Nancy with [facility] requesting for the RX form from 09/11/24 to be re faxed over with the Doctors Signature and the date on Page 5 and Signature on the bottom of Page 6. She was also requesting if Pt Office Notes from Apt on 09/11/24 can be faxed over with the Form. Contact Nancy at [phone] IT IS A PRIVATE LINE * Telephone [...] over with the Form. Contact Nancy at [phone] IT IS A PRIVATE LINE * Telephone Encounter - Carmelina Ruiz RN - 07/22/2024 12:40 PM EST Chart Update- speech device paperwork received and requested supporting notes. Pt NS last appt. TC to pt to schedule appt at PCP request to have supporting documentation. LM to RC. documented in this encounter Plan of Treatment Upcoming Encounters Date Type Department Care Team ([facility] st Contact Info) Description 11/12/2024 10:45 AM EDT Office Visit [facility] MED & PEDS [address] [place] [address] Stan Fletcher MD [address] [place] [address] documented as of this encounter Visit Diagnoses Not on filedocumented in this encounter Additional Health Concerns Assessment Noted Time PHQ-9 Depression Total Score: 5 11/08/19 24 2:49 PM EDT documented as of this encounter Care Teams Brand Advocate Relationship Specialty Start Date End Date Stan Fletcher MD [address] [place] [address] PCP - General Internal Medicine 08/20/18 documented as of this encounter
== END 2024-10-17 07:33 | disposition home or self-care (01) ==
LOC: HO.HOSX 07:32
PROVIDERS: Visit Provider Physician Assistant
DX: M25.552 Pain in left hip (principal); M70.62 Trochanteric bursitis, left hip
CPT/HCPCS: 20610; 73502; 99212; J1010; J2003

== ENCOUNTER 2024-10-17 08:26 | Outpatient (AMB) | payer MEDICARE, MEDICAID, SELFPAY ==
--- OUTSIDE RECORDS SUMMARY | 2024-10-17 08:34 | XMS_ITS | Encounter Summary ---
Author Organization [employer] [facility] Address [address] [place] [address] Care Team Providers Care Schedule Supervisor Name Role Phone Stan Fletcher MD Primary Care Provider [phone]- [phone] Reason for Visit * Reason Comments Med Refill Encounter Details Date Type Department Care Team (Late st Contact Info) Description 03/20/2023 Refill [facility] MED & PEDS [address] [place] [address] Stan Fletcher MD [address] [place] [address] Type 2 diabetes mellitus with hyperglycemia, with long-term current use of insulin ([facility]) Social History Tobacco Use Types Packs/Day Years Used Date Smoking Tobacco: Never Smokeless Tobacco: Never Sex and Gender Information Value Date Recorded Sex Assigned at Male 06/19/2022 10:21 AM EDT Legal Sex Male 10:21 AM EDT Gender Identity Male 06/19/2022 10:21 AM EDT Sexual Orientation Don't know 06/19/2022 10 :21 AM EDT documented as of this encounter Plan of Treatment Upcoming Encounters Date Type Department Care Team (Late st Contact Info) Description 11/12/2024 10:45 AM EDT Office Visit [facility] MED & PEDS [address] [place] [address] Stan Fletcher MD [address] [place] [address] documented as of this encounter Visit Diagnoses Diagnosis Type 2 diabetes mellitus with hyperglycemia, with long-term current use of insulin ([facility]) documented in this encounter Care Teams Schedule Supervisor Relationship Specialty Start Date End Date Stan Fletcher MD [address] [place] [id number] PCP - General Internal Medicine 08/20/18 documented as of this encounter
--- OUTSIDE RECORDS SUMMARY | 2024-10-17 08:34 | XMS_ITS | Encounter Summary ---
Author Organization [employer] Address [address] [place] [address] Care Team Providers Care Manager Global Name Role Phone Stan Fletcher MD Primary Care Provider [phone]- [phone] Reason for Visit * Reason Onset Date Comments Nurse Triage 08/23/2023 Encounter Details Date Type Department Care Team ([facility] st Contact Info) Description 08/23/2023 Telephone [facility] MED & PEDS [address] [place], [place] [phone] Stan Fletcher MD [address] [place] [address] Nurse Triage Social History Tobacco Use Types Packs/Day Years Used Date Smoking Tobacco: Never Smokeless Tobacco: Never Sex and Gender Information Value Date Recorded Sex Assigned at Male 06/19/2022 10:21 AM EDT Legal Sex Male 10:21 AM EDT Gender Identity Male 06/19/2022 10:21 AM EDT Sexual Orientation Don't know 06/19/2022 10 :21 AM EDT documented as of this encounter Miscellaneous Notes * Telephone Encounter - Vivi Salazar RN - 08/23/2023 3:50 PM EST Called pt. Back via drop board man #[id number]. Called pt. Asked him if he has any Covid tests at home to test himself for Covid. Pt. States he has a test at home but, he currently at Pharmacy picking up some OTC cough medicine. I will call pt. Back at 430pm to see what Covid test result is as pt. States he lives [place] from [facility]. Called pt. Back via drop board man #[id number]. Pt. Took Covid test and it came out Negative. Pt. ShowedASL chip bin operator over video and she states that only the control line is showing and only 1 line on home Covid test. Advised pt. That per Dr. Fletcher he would like pt. To go to Walk in at [facility] tomorrow 08/23/2023 in the am to get his lungs listened to and to assess left lung congestion. Pt. States understanding and will go to walk in at [facility] at 830am when walk in opens. * Telephone Encounter - Vivi Salazar RN - 08/23/2023 2:53 PM EST Called pt. Back via drop board man. Agent [employer] Gate #[id number]. Pt. States that he has a productive cough-yellow x 2 days. Non-stop cough. Pt. States that friend next door is coughing too. No fever. Pt. Feels like his left lung is congested. No stuffy nose but, pt. Has been usinmg nasal spray, no headache.Pt. Is requesting refill on Tessalon Perles from 05/2023 visit and also a refill on inhaler. I advised pt. That I will submit these requests to PCP but that he should get a Sugar free expectorant cough syrup from pharmacy to see if that will help break up mucous in lungs more and drink lots of water. Pt denies SOB at present. Advised pt. To call back tomorrow if cough worsens or fever develops. Protocol Used: Cough (Adult) Protocol-Based Disposition: Video visit not offered Positive Triage Question: * Continuous (nonstop) coughing interferes with work or school and no improvement using cough treatment per Care Advice * All higher-acuity triage questions were negative Care Advice Discussed: * Cough Medicines * Coughing Spells * Prevent Dehydration * Avoid Tobacco Smoke * Humidifier * Telephone Encounter - Anibal Parkinson - 08/23/2023 2:39 PM EST Symptom: Cough Outcome: Talk to a nurse or provider within 15 minutes Reason: Any trouble breathing through the mouth The caller accepted this outcome Please contact pt @ [phone] Sign Language documented in this encounter Plan of Treatment Upcoming Encounters Date Type Department Care Team ([facility] st Contact Info) Description 11/12/2024 10:45 AM EDT Office Visit [facility] MED & PEDS [address] [place] [address] Stan Fletcher MD [address] [place] [address] documented as of this encounter Visit Diagnoses Not on filedocumented in this encounter Care Teams Manager Global Relationship Specialty Start Date End Date Stan Fletcher MD [address] [place] [address] PCP - General Internal Medicine 08/20/18 documented as of this encounter
--- OUTSIDE RECORDS SUMMARY | 2024-10-17 08:34 | XMS_ITS | Encounter Summary ---
Author Organization [employer] Address [address] [place] [address] Care Team Providers Care Hourly Shift Name Role Phone Stan Fletcher MD Primary Care Provider [phone]- [phone] Reason for Visit * Reason Onset Date Comments Durable Medical Equipment 01/26/2023 Encounter Details Date Type Department Care Team ([facility] st Contact Info) Description 01/26/2023 Telephone [facility] MED & PEDS [address] [place], [place] [phone] Stan Fletcher MD [address] [place] [address] Durable Medical Equipment Social History Tobacco Use Types Packs/Day Years Used Date Smoking Tobacco: Never Smokeless Tobacco: Never Sex and Gender Information Value Date Recorded Sex Assigned at Male 06/19/2022 10:21 AM EDT Legal Sex Male 10:21 AM EDT Gender Identity Male 06/19/2022 10:21 AM EDT Sexual Orientation Don't know 06/19/2022 10 :21 AM EDT COVID-19 Exposure Response Date Recorded In the last 10 days, have yo u been in contact with someone who was confirmed or suspected to have Coronavirus/COVID-19? No / Unsure 01/02/2023 12:51 PM EDT documented as of this encounter Miscellaneous Notes * Telephone Encounter - Tori Tariq RN - 01/26/2023 11:08 AM EDT Please review request below and advise. Last office visit 01/02/23. * Telephone Encounter - Parul Tariq - 01/26/2023 10:01 AM EDT Tc from pt requesting a script and PA for a Freestyle mingo 2 sensor/glucose monitor. Would like itto be sent to [facility]. For clarification, please contact pt at [phone] (Sign language) documented in this encounter Plan of Treatment Upcoming Encounters Date Type Department Care Team ([facility] st Contact Info) Description 11/12/2024 10:45 AM EDT Office Visit [facility] MED & PEDS [address] [place] [address] Stan Fletcher MD [address] [place] [address] documented as of this encounter Visit Diagnoses Diagnosis Type 2 diabetes mellitus without complication, with long-term current use of insulin ([facility])- Primary documented in this encounter Care Teams Hourly Shift Relationship Specialty Start Date End Date Stan Fletcher MD [address] [place] [address] PCP - General Internal Medicine 08/20/18 documented as of this encounter
--- OUTSIDE RECORDS SUMMARY | 2024-10-17 08:34 | XMS_ITS | Data Portability ---
Author Organization [employer] [facility] [employer] Address [address] [place] [phone] Care Team Providers Care Ocular Care Technician Name Role Phone [facility] Referring Provider Assessment No assessment recorded. Plan of Treatment Reminders Order Date Submit Date Provider Last Modified By Organization Details Last Modified Time Details Appointments None recorded. Lab None recorded. Referral None recorded. Procedures None recorded. Surgeries None recorded. Imaging None recorded. Medication Orders azithromyci n [address] [facility] #[id number], [address] [place], [address], 10:33:17 Flovent HFA 44 mcg/actuati on aerosol inhaler [address] [facility]armacy #[id number], [address] [place], [address], 10:33:17 Patient TargetsNo targets recorded. Patient InstructionsNo [...] Available Pentips Pen Needle 31 gauge x 3/16 TEST BLOOD SUGAR FOUR TIMES DAILY active [...] Diagnosis/Indication Diagnosis SNOMED-CT Code Diagnosis ICD10 Code Diagnosis Note [id number] Kiana Rojas MD Main - [facility] [address] [place] [phone] 05/23/2023 10:14:23 05/24/2023 00:31:53 Cough [id number] R05.9 I provided real -time medical direction via phone for this encounter, and was available for additional phone based assistance as needed. I have reviewed and agree with the Assessment and Plan as documented by the [employer]. Patient given the opportunit y to ask questions. 62 yo, p/w several days productive cough, expectorat ing green/trac e blood sputum. Seen in the ED yesterday, covid negative, VSS. Was prescribed 20mg prednisone and albuterol inhaler with dx bronchitis . Noted significan t increase in anxiety, palpitatio ns and hyperglyce sheree with the prednisone and would like to stop it. Does not carry dx of asthma or COPD, is a never smoker, and today's exam notable for bibasilar ronchi and wheezing. Does feel a little better today. Suspect bronchitis vs CAP. Given side effects of pred and lack of evidence of significan t obstructiv e disease, reasonable to trial azithromyc in (both for antimicrob ial and antiinflam atory effect) w/ short course of inhaled fluticason e. Instructed pt to rinse mouth after use and advised on warning signs/sx. Health Concerns Section Related Observation LastModified by Organization Detai ls LastModified Time None Recorded Concern Status LastModified by Organization Details LastModified Time None Recorded Advance Directives Directive None Recorded Payers Encounter Date Sequence Insurance Name Policy Number Policy Liang Covered Member ID Liang Member ID Guarantor Name 05/23/2023 1 [facility] - DOS ON OR AFTER 2022 - DUAL ELIGIBLE - ASSISTED OPTIONS AND ONE CARE (MEDICARE REPLACEMENT/AD VANTAGE - HMO) Nick Escobar [id number] Nick Escobar Notes Date Note Type Note [...] Advised no further Prednisone until evaluated by [facility] customer operations specialist. ................... ................... ................... ................... ................... ................... ................... ........ [facility] Nursing Assessment: Comments: Reviewed = Deuce VASQUES ................... ................... ................... ................... ................... ................... ................... ........ [employer] Note From Isaiah Green: Pt reports that [...] ................... ........ Disposition: Fulfilled Kiana Rojas MD [address] [facility],[address], [place], [address], [employer] 05/23/2023 23:34:00
--- OUTSIDE RECORDS SUMMARY | 2024-10-17 08:34 | XMS_ITS | Encounter Summary ---
Author Organization [employer] Address [address] [place] [address] Care Team Providers Care Spooler Operator Automatic Name Role Phone Stan Fletcher MD Primary Care Provider +1- [phone] Encounter Details Date Type Department Care Team ([facility] Contact Info) Description 08/23/2023 Orders Only [facility] MED & PEDS [address] [place] [address] Stan Fletcher MD [address] [place] [address] Social History Tobacco Use Types Packs/Day Years [...] Upcoming Encounters Date Type Department Care Team ([facility] Contact Info) Description 11/12/2024 10:45 AM EDT Office Visit [facility] MED & PEDS [address] [place] [address] Stan Fletcher MD [address] [place] [address] documented as of this encounter Visit Diagnoses Not on filedocumented in this encounter Care Teams Spooler Operator Automatic Relationship Specialty Start Date End Date Stan Fletcher MD [address] [place] [address] PCP - General Internal Medicine 08/20/18 documented as of this encounter
--- OUTSIDE RECORDS SUMMARY | 2024-10-17 08:34 | XMS_ITS | Encounter Summary ---
Author Organization [employer] Address [address] [address] Care Team Providers Care Marketing Forecaster Name Role Phone Stan Fletcher MD Primary Care Provider [phone]- [phone] Reason for Visit * Reason Onset Date Comments Med Refill 11/05/2023 Encounter Details Date Type Department Care Team (Late st Contact Info) Description 11/05/2023 Telephone [facility] MEDICINE [address] [place] [address] Stan Fletcher MD [address] [place], [place] [phone] Med Refill Social History Tobacco Use Types Packs/Day Years Used Date Smoking Tobacco: Never Smokeless Tobacco: Never Depression Answer Date Recorded Patient Health Questionnaire-9 Score 5 11/08/2023 Patient Health Questionnaire-9 Score 5 11/08/2023 Last PHQ-9: Questionnaire Data Not on file 0 11/08/2023 Housing Stability Answer Date Recorded What is your housing situation today? I have brian pinzon 10/31/[address] you li ve. Do you have problems with any of the following? None of the above 10/31/2023 Food Insecurity Answer Date Recorded Within the past 12 months, y ou worried that your food would run out before you got money to buy more: Never True 10/31/2023 Within the past 12 months,th e food you bought just didn't last and you didn't have enough money to get more: Never True Transportation Answer Date Recorded In the past 12 months, has l ack of transportation kept you from medical appts, meetings, work or from getting things needed for daily living? No 10/31/2023 Utilities Answer Date Recorded In the past 12 months, has t he electric, gas, oil or water company threatened to shut off services in your home? No 10/31/2023 Depression Answer Date Recorded Patient Health Questionnaire-2 Score 0 11/08/2023 Sex and Gender Information Value Date Recorded Sex Assigned at Male 06/19/2022 10:21 AM EDT Legal Sex Male 10:21 AM EDT Gender Identity Male 06/19/2022 10:21 AM EDT Sexual Orientation Don't know 06/19/2022 10 :21 AM EDT documented as of this encounter Miscellaneous Notes * Telephone Encounter - Bismark Sauceda - 11/05/2023 1:59 PM EDT Tc from Dung at [facility] requesting scripts for Continuous Blood Gluc Quality Improvement Coordinator (FreeStyle Cathryn 2 [place]) device ,Continuous Blood Gluc Sensor (FreeStyle Cathryn 2 Sensor) misc and Precision Anjel Test Stripsit can be Faxed to [phone] documented in this encounter Plan of Treatment Upcoming Encounters Date Type Department Care Team (Late st Contact Info) Description 11/12/2024 10:45 AM EDT Office Visit [facility] MED & PEDS [address] [place] [address] Stan Fletcher MD [address] [place] [address] documented as of this encounter Visit Diagnoses Not on filedocumented in this encounter Care Teams Marketing Forecaster Relationship Specialty Start Date End Date Stan Fletcher MD [address] [place] [address] PCP - General Internal Medicine 08/20/18 documented as of this encounter
--- OUTSIDE RECORDS SUMMARY | 2024-10-17 08:34 | XMS_ITS | Encounter Summary ---
Author Organization [employer] Address [address] [place] [address] Care Team Providers Care Application Integration Engineer Name Role Phone Stan Fletcher MD Primary Care Provider [phone]- [phone] Encounter Details Date Type Department Care Team ([facility] Contact Info) Description 07/16/2023 Orders Only [facility] MED & PEDS [address] [place] [address] Stan Fletcher MD [address] [place] [address] Social History Tobacco Use Types Packs/Day Years [...] Upcoming Encounters Date Type Department Care Team ([facility] Contact Info) Description 11/12/2024 10:45 AM EDT Office Visit [facility] MED & PEDS [address] [place] [address] Stan Fletcher MD [address] [place] [address] documented as of this encounter Procedures Procedure Name Priority Date/Time Associated Diagnosis Comments MR SHOULDER WO CONTRAST LEFT Routine 08/07/2023 8:15 AM EST documented in this encounter Results * MR Shoulder w/o Contrast Left (08/07/2023 8:15 AM EST) Anatomical Region Laterality Modality Upper Extremities, Shoulder Left Magn etic Resonance 08/07/2023 8:15 AM EST Narrative 08/07/2023 3:29 PM EST ? [facility] ?[address] ?[place] [address] ? Magnetic Resonance Report ? Signed ? Patient: Labrecrasheed,Nick ?MR#: [id number] ?? [id number] ? : 1960 ?Acct:[id number] ? Age/Sex: 62 / M ?ADM Date: 08/07/23 ? Loc: HO.MRI ? Attending Dr: Eddie Lawler MD ? Ordering Physician: Eddie Lawler MD ?? Date of Service: 08/07/23 ?? Procedure(s): MR shoulder LT wo con ?? Accession Number(s): [id number] ? cc: Stan Fletcher MD; Eddie Lawler MD ? EXAMINATION: ?? MR SHOULDER WITHOUT CONTRAST, LEFT ? CLINICAL INFORMATION: ?? Posterior left shoulder and arm pain since 06/23/2023. Impingement ?? syndrome. ? COMPARISON: ?? Left shoulder radiographs dated 06/26/2023. ? TECHNIQUE: ?? MRI of the shoulder was performed using routine sequences on a ?? high-field scanner. ? FINDINGS: ? ROTATOR CUFF: Rncn-zf-umtqpqwc supraspinatus tendinosis with anterior ?? bursal surface fraying measuring up to 1.7 cm in AP dimension. Fraying ?? extends proximally along the myotendinous junction. Moderate ?? subscapularis tendinosis with articular surface fraying/partial tearing ?? measuring up to 3.1 cm in ML dimension. Mild supraspinatus muscle ?? atrophy. ? BICEPS: Thickening and increased T2 signal within the intra-articular ?? long head biceps tendon, consistent with moderate tendinosis. Possible ?? longitudinal partial tearing. No full-thickness transverse tendon tear ?? or tendon retraction. ? CORACOACROMIAL ARCH: The undersurface of the acromion is curved with ?? tiny subacromial spurs. Severe acromioclavicular osteoarthritis and ?? small joint effusion. Fluid and edema within the subacromial-subdeltoid ?? bursa, consistent with mild bursitis. ? LABRUM/CAPSULE: Heterogeneously increased T2 signal within the ?? undersurface of the superior and posterosuperior labrum, consistent ?? with nondisplaced undersurface tearing. Thickening and edema of the ?? inferior joint capsule which can be seen in the setting of adhesive ?? capsulitis. ? GLENOHUMERAL JOINT/MARROW: Intact articular cartilage. Trace joint ?? effusion. ? MR/MR shoulder LT wo con ?? IMPRESSION: ?? 1. Crbb-sm-sokzqhnr supraspinatus tendinosis with anterior bursal ?? surface fraying measuring 1.7 cm in AP dimension. Fraying extends ?? proximally along the myotendinous junction. Moderate subscapularis ?? tendinosis with articular surface fraying/partial tearing measuring 3.1 ?? cm in ML dimension. Mild supraspinatus muscle atrophy. ? 2. Moderate intra-articular long head biceps tendinosis with possible ?? longitudinal partial tearing. No full-thickness transverse tendon tear ?? or tendon retraction. ? 3. Severe acromioclavicular osteoarthritis and small joint effusion ?? with tiny subacromial spurs. ? 4. Mild subacromial-subdeltoid bursitis. ? 5. Nondisplaced undersurface tearing of the superior and ?? posterosuperior labrum. ? 6. Thickening and edema of the inferior joint capsule which can be seen ?? in the setting of adhesive capsulitis. ? 7. Trace glenohumeral joint effusion. ? Dictated By: ?Saul Dove MD ? Signed By: ?<Electronically signed by Saul Dove MD in OV> ?08/07/23 1526 ? DD/ 0815 ? TD/TT: ? Woodyard Operator: SR ? Procedure Note Eugenio Casey - 08/07/2023 [place] [id number] [facility] [place] [address] Magnetic Resonance Report Signed Patient: Nick Escobar#: [id number] : 1960Acct:[id number] Age/Sex: 62 / MADM Date: 08/07/23 Loc: HO.MRI Attending Dr: Eddie Lawler MD Ordering Physician: Eddie Lawler MD Date of Service: 08/07/23 Procedure(s): MR shoulder LT wo con Accession Number(s): [id number] cc: Stan Fletcher MD; Eddie Lawler MD EXAMINATION: MR SHOULDER WITHOUT CONTRAST, LEFT CLINICAL INFORMATION: Posterior left shoulder and arm pain since 06/23/2023. Impingement syndrome. COMPARISON: Left shoulder radiographs dated 06/26/2023. TECHNIQUE: MRI of the shoulder was performed using routine sequences on a high-field scanner. FINDINGS: ROTATOR CUFF: Spsw-jq-fujacidl supraspinatus tendinosis with anterior bursal surface fraying measuring up to 1.7 cm in AP dimension. Fraying extends proximally along the myotendinous junction. Moderate subscapularis tendinosis with articular surface fraying/partial tearing measuring up to 3.1 cm in ML dimension. Mild supraspinatus muscle atrophy. BICEPS: Thickening and increased T2 signal within the intra-articular long head biceps tendon, consistent with moderate tendinosis. Possible longitudinal partial tearing. No full-thickness transverse tendon tear or tendon retraction. CORACOACROMIAL ARCH: The undersurface of the acromion is curved with tiny subacromial spurs. Severe acromioclavicular osteoarthritis and small joint effusion. Fluid and edema within the subacromial-subdeltoid bursa, consistent with mild bursitis. LABRUM/CAPSULE: Heterogeneously increased T2 signal within the undersurface of the superior and posterosuperior labrum, consistent with nondisplaced undersurface tearing. Thickening and edema of the inferior joint capsule which can be seen in the setting of adhesive capsulitis. GLENOHUMERAL JOINT/MARROW: Intact articular cartilage. Trace joint effusion. MR/MR shoulder LT wo con IMPRESSION: 1. Rhax-zr-hbyhytfe supraspinatus tendinosis with anterior bursal surface fraying measuring 1.7 cm in AP dimension. Fraying extends proximally along the myotendinous junction. Moderate subscapularis tendinosis with articular surface fraying/partial tearing measuring 3.1 cm in ML dimension. Mild supraspinatus muscle atrophy. 2. Moderate intra-articular long head biceps tendinosis with possible longitudinal partial tearing. No full-thickness transverse tendon tear or tendon retraction. 3. Severe acromioclavicular osteoarthritis and small joint effusion with tiny subacromial spurs. 4. Mild subacromial-subdeltoid bursitis. 5. Nondisplaced undersurface tearing of the superior and posterosuperior labrum. 6. Thickening and edema of the inferior joint capsule which can be seen in the setting of adhesive capsulitis. 7. Trace glenohumeral joint effusion. Dictated By: Saul Dove MD Signed By: <Electronically signed by Saul Dove MD in OV> 08/07/23 1526 DD/ 0815 TD/TT: Woodyard Operator: [facility] External Provider IMG MRI PROCEDURES Final Result documented in this encounter Visit Diagnoses Not on filedocumented in this encounter Care Teams Application Integration Engineer Relationship Specialty Start Date End Date Stan Fletcher MD [address] [place] [id number] PCP - General Internal Medicine 08/20/18 documented as of this encounter
--- OUTSIDE RECORDS SUMMARY | 2024-10-17 08:35 | XMS_ITS | Encounter Summary ---
Author Organization [employer] Address [address] [address] Care Team Providers Care Drafter Seismograph Name Role Phone Stan Fletcher MD Primary Care Provider [phone]- [phone] Reason for Visit * Reason Onset Date Comments Call Back Request 09/30/2024 Encounter Details Date Type Department Care Team ([facility] st Contact Info) Description 09/30/2024 Telephone [facility] MEDICINE [address] [place] [address] Stan Fletcher MD [address] [place], [place] [phone] Call Back Request Social History Tobacco Use Types Packs/Day Years [...] encounter Miscellaneous Notes * Telephone Encounter - Rita Castellanos LPN - 10/01/2024 8:50 AM EST Reversal Print Inspector spoke with katty regarding message below, Form that was faxed needed a correction , re faxed Tc from Katty with [facility] requesting a call back regarding DME form that was sent today 09/30/24. Contact Katty at [phone] * Telephone Encounter - Manish Saldana - 09/30/2024 3:10 PM EST Tc from Katty with [facility] requesting a call back regarding DME form that was sent today 09/30/24. Contact Katty at [phone] documented in this encounter Plan of Treatment Upcoming Encounters Date Type Department Care Team (Late st Contact Info) Description 11/12/2024 10:45 AM EDT Office Visit [facility] MED & PEDS [address] [place] [address] Stan Fletcher MD [address] [place] [address] documented as of this encounter Visit Diagnoses Not on filedocumented in this encounter Additional Health Concerns Assessment Noted Time PHQ-9 Depression Total Score: 5 11/08/19 24 2:49 PM EDT documented as of this encounter Care Teams Drafter Seismograph Relationship Specialty Start Date End Date Stan Fletcher MD [address] [place] [id number] PCP - General Internal Medicine 08/20/18 documented as of this encounter
--- OUTSIDE RECORDS SUMMARY | 2024-10-17 08:35 | XMS_ITS | Encounter Summary ---
Author Organization [employer] Address [address] [place] [address] Care Team Providers Care Car Dealer Name Role Phone Stan Fletcher MD Primary Care Provider [phone] Reason for Referral * Consultation (Routine) - Authorized Specialty Diagnoses / Procedures Referred By Contivan yang Referred To Contact Orthopaedic Surgery Diagnoses Greater trochanteric bursitis of left hip Stan Fletcher MD [address] [place] [address] Phone: tel: fax: [facility] [address] [place] [address] Phone: tel: Referral ID Status Reason Start Date Expiration Date Visits Requested Visits Authorized [id number] Authorized Specialty Services Required 09/11/2024 09/11/2025 1 1 Encounter Details Date Type Department Care Team (Latest Contact Info) Description 09/11/2024 9:45 AM EST Office Visit [facility] MED & PEDS [address] [place] [address] Stan Fletcher MD [address] [place] [address] Herniation of intervertebral disc between L4 and L5 (Primary Dx); Anterolisthesis; Greater trochanteric bursitis of left hip; Type 2 diabetes mellitus without complication, with long-term current use of insulin ([facility]) Social History Tobacco Use Types Packs/Day Years [...] AM EDT documented as of this encounter Last Filed Vital Signs Vital Sign Reading Time Taken Comments Blood Pressure 140/78 09/11/2024 9:42 AM EST Pulse 62 09/11/2024 9:42 AM EST Temperature 36.2 ??C (97.2 ??F) 09/11/2024 9:42 AM ES T Respiratory Rate 20 09/11/2024 9:42 AM EST Oxygen Saturation 98% 09/11/2024 9:42 AM EST Inhaled Oxygen Concentration - - Weight 89.4 kg (197 lb) 09/11/2024 9:42 AM EST Height 173 cm (5' 8.11 ) 09/11/2024 9:42 AM EST Body Mass Index 29.86 09/11/2024 9:42 AM EST documented in this encounter Progress Notes * Stan Fletcher MD - 09/11/2024 9:45 AM EST Subjective Patient ID: Nick Escobar is a 63 y.o. male who presents for No chief complaint on file.. 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 Pain is improving slowly. Still feels some stretching ofthe Low back. Was discharged on small supply of oxycodone. Needs a paper filled out for his work. Patient is also complaining today of left hip pain that started about a month ago the pain is constant and exacerbated by lying on the left side of the body. Denies any skin rash. Patient Active Problem List Diagnosis Allergic rhinitis Bilateral deafness Chest pain Diabetes mellitus (CMS/HCC) Hypertensive disorder Palpitations Pure hypercholesterolemia Right inguinal hernia Herniation of intervertebral disc between L4 and L5 Anterolisthesis Drug-induced constipation Acute cough Current Outpatient Medications on File Prior to Visit Medication Sig Dispense Refill albuterol 108 (90 Base) MCG/ACT inhaler atorvastatin (Lipitor) 40 MG tablet TAKE ONE TABLET EVERY MORNING 30 tablet 11 benzonatate (Tessalon) 100 MG capsule TAKE ONE CAPSULE THREE TIMES DAILY IN THE MORNING, AT NOON, AND AT BEDTIME NEEDED FOR COUGH 20 capsule 0 cholecalciferol (Vitamin D-3) 25 MCG (1000 UT) capsule Take 1 capsule by mouth 1 (one) time each day. coenzyme Q-10 100 MG capsule Take 1 capsule by mouth 1 (one) time each day. Continuous Blood Gluc Lathe Winder (FreeStyle Cathryn 2 [place]) device To use daily 1 each 0 Continuous Blood Gluc Sensor (FreeStyle Cathryn 2 Sensor) [facility] To use daily 2 each 11 Continuous Glucose Lathe Winder (FreeStyle Cathryn 2 [place]) device Scan sensor every 8 hours 1 each 0 Continuous Glucose Sensor (FreeStyle Cathryn 2 Sensor) [facility] Apply 1 sensor every 14 days 2 each 11 cyanocobalamin (Vitamin B-12) 1000 MCG tablet Take 1 tablet by mouth 1 (one) time each day. cyclobenzaprine (Flexeril) 10 MG tablet Take 1 tablet (10 mg) by mouth 3 times daily for 10 days. 30 tablet 0 docusate sodium (Colace) 100 MG capsule Take 1 capsule by mouth 2 times daily. DULoxetine (Cymbalta) [address] capsule Take 1 capsule (20 mg) by mouth 2 times daily. Do not crush or chew. 60 capsule 11 fluticasone (Flonase) 50 MCG/ACT nasal spray INHALE ONE spary IN EACH NOSTRIL DAILY 16 g 5 fluticasone (Flovent) 110 MCG/ACT inhaler Inhale 1 puff in the morning and at bedtime. Rinse mouth with water after use to reduce aftertaste and incidence of candidiasis. Do not swallow. 12 g 2 gabapentin (Neurontin) 300 MG capsule TAKE ONE CAPSULE THREE TIMES DAILY 180 capsule 5 glipiZIDE (Glucotrol) 5 MG tablet TAKE ONE TABLET BY MOUTH THREE TIMES DAILY BEFORE MEALS 180 tablet 3 glucose blood (FreeStyle Precision Anjel Test) test strip Use to test blood sugar 4 times daily 100 each 12 glucose blood (OneTouch Ultra) test strip Use to test blood sugar 2 times daily 100 each 12 glucose blood test strip Check the FS 2 times a day 100 each 12 insulin aspart (NovoLOG FLEXPEN) 100 UNIT/ML pen INJECT 12 UNITS SUBCUTANEOUSLY THREE TIMES DAILY 15 mL 5 insulin aspart FlexPen (NovoLOG) 100 UNIT/ML pen Inject 12 Units under the skin before breakfast, before lunch, and before evening meal. Inject 12 units subcutaneously 3 times Daily 12 mL 11 Insulin Lispro (HumaLOG) 100 UNIT/ML solution Inject 12 Units as directed 3 times daily. 10 mL 11 Januvia 100 MG tablet TAKE ONE TABLET BY MOUTH EVERY DAY 90 tablet 3 Lancet Devices (Autolet) lancing device 1 each by Other route 2 times daily. 100 each 11 Lantus SoloStar 100 UNIT/ML pen INJECT 60 UNITS SUBCUTANEOUSLY ONCE DAILY 30 mL 11 Livalo 2 MG tablet Take 1 tablet by mouth in the morning. 90 tablet 3 loratadine (Claritin) 10 MG tablet TAKE ONE TABLET EVERY MORNING 30 tablet 5 losartan (Cozaar) 50 MG tablet TAKE ONE TABLET EVERY MORNING 30 tablet 11 melatonin 5 MG tablet One tab once a day. 30 tablet 3 methocarbamol (Robaxin) 750 MG tablet TAKE ONE TABLET FOUR TIMES DAILY FOR 10 DAYS 40 tablet 0 nabumetone (Relafen) 750 MG tablet TAKE ONE TABLET TWICE DAILY 60 tablet 5 OneTouch Ultra test strip TEST BLOOD SUGAR THREE TIMES DAILY. 100 strip 11 oxyCODONE-acetaminophen (Percocet) 7.5-325 MG tablet TAKE ONE TABLET EVERY 6 HOURS NEEDED FOR SEVERE PAIN 15 tablet 0 Pentips 31G X 5 MM misc TEST BLOOD SUGAR FOUR TIMES DAILY polyethylene glycol, PEG, 3350 (MiraLax) 17 GM/SCOOP powder Take 17 g by mouth in the morning. Take17 g PO in 8 ounces of water 3 times a day for 3 days, then 17 g PO daily 527 g 2 senna-docusate sodium (Senokot-S) 8.6-50 MG tablet Take 2 tablets by mouth if needed at bedtime forconstipation. 60 tablet 0 TechLite Pen Stewardson 32G X 6 MM misc USE FOUR TIMES DAILY] 100 each 11 tiZANidine (Zanaflex) 4 MG tablet TAKE ONE TABLET EVERY 6 TO 8 HOURS NEEDED. NO MORE THAN THREE TABLETS PER 24 HOURS 60 tablet 1 triamcinolone (Kenalog) 0.5 % ointment APPLY SPARINGLY TO THE AFFECTED AREA(S) TWICE DAILY 30 g 0 No current facility-administered medications on file prior to visit. Allergies Allergen Reactions Denture Adhesive Rash Bee Pollen Hives Simvastatin Hives Sulfa Antibiotics Hives Review of Systems Constitutional: Negative for appetite change, chills and diaphoresis. Eyes: Negative for pain, redness and itching. Cardiovascular: Negative for chest pain and leg swelling. Gastrointestinal: Negative for anal bleeding, blood in stool and constipation. Musculoskeletal: Positive for back pain. Negative for gait problem and joint swelling. Left hip pain Objective Physical Exam Constitutional: General: He is not in acute distress. Appearance: Normal appearance. He is not ill-appearing, toxic-appearing or diaphoretic. Cardiovascular: Rate and Rhythm: Normal rate. Pulmonary: Effort: Pulmonary effort is normal. Musculoskeletal: Comments: Tenderness to palpation of the left hip Skin: Findings: No rash. Neurological: Mental Status: He is alert. Assessment/Plan Diagnoses and all orders for this visit: Herniation of intervertebral disc between L4 and L5 Comments: As below Anterolisthesis Comments: S/p surgery. Patient is improving. His paperwork will be filled out to return to work after he recovers Greater trochanteric bursitis of left hip Comments: Heat therapy recommended Ortho evaluation Continue with ibuprofen Orders: - Referral to Orthopaedic Surgery; Future Type 2 diabetes mellitus without complication, with long-term current use of insulin ([facility]) Comments: Stable No change Low-carb diet Continue with same meds. Orders: - POCT Glucose - POCT HGB A1C H/o Deafness. Dx : H91.93. Mr has expressed the desire to use the Ubi Duo3 SGD and to be referred to a speech language pathologist for kacie augmentative and alternative communication evaluation. Communication has been difficulton many occasions when an top polisher is not available or because of technical difficulties. documented in this encounter Plan of Treatment Upcoming Encounters Date Type Department Care Team (Late st Contact Info) Description 11/12/2024 10:45 AM EDT Office Visit [facility] MED & PEDS [address] [place] [address] Stan Fletcher MD [address] [place], [place] [phone] Scheduled Referrals Name Type Priority Associated Diagnoses Orde r Schedule Referral to Orthopaedic Surgery Outpatient Referral Routine Greater trochanteric bursitis of left hip Expected: 09/11/2024 (Approximate), Expires: 09/11/2025 documented as of this encounter Procedures Procedure Name Priority Date/Time Associated Diagnosis Comments POCT GLYCATED HEMOGLOBIN, TOTAL Routine 09/11/2024 10:40 AM EST Type 2 diabetes mellitus without complication, with long-term current use of insulin ([facility]) POCT GLUCOSE Routine 09/11/2024 10:39 AM EST Type 2 diabetes mellitus without complication, with long-term current use of insulin ([facility]) documented in this encounter Results * (ABNORMAL) POCT HGB A1C (09/11/2024 10:40 AM EST) Hemoglobin A1C 8.0(A) 4.0 - 6.0 % QC Media Lot # [id number] Lot# Expiration Date [id number] Blood 09/11/2024 10:4 0 AM EST Stan Fletcher MD POINT OF CARE TEST ENTER/ED IT ORDERABLES Final Result * (ABNORMAL) POCT Glucose (09/11/2024 10:39 AM EST) Glucose Blood, POC 213(A) 60 - 200 mg/dL QC Media Lot # [id number] Lot# Expiration Date 825, Blood Capillary blood specimen / Unknown 09/11/2024 10:39 AM EST Stan Fletcher MD POINT OF CARE TEST ENTER/ED IT ORDERABLES Final Result documented in this encounter Visit Diagnoses Diagnosis Herniation of intervertebral disc between L4 and L5- Primary Anterolisthesis Greater trochanteric bursitis of left hip Type 2 diabetes mellitus without complication, with long-term current use of insulin ([facility]) documented in this encounter Additional Health Concerns Assessment Noted Time PHQ-9 Depression Total Score: 5 11/08/19 24 2:49 PM EDT documented as of this encounter Care Teams Car Dealer Relationship Specialty Start Date End Date Stan Fletcher MD [address] [place] [id number] PCP - General Internal Medicine 08/20/18 documented as of this encounter
--- OUTSIDE RECORDS SUMMARY | 2024-10-17 08:35 | XMS_ITS | Encounter Summary ---
Author Organization [employer] Address [address] [place] [address] Care Team Providers Care Director Of Corporate Responsibility Name Role Phone Stan Fletcher MD Primary Care Provider [phone]- [phone] Reason for Visit * Reason Comments Med Refill Encounter Details Date Type Department Care Team ([facility] Contact Info) Description 01/09/2023 Refill [facility] [address] [place] [address] Stan Fletcher MD [address] [place] [address] Social History Tobacco Use Types Packs/Day Years [...] PM EDT documented as of this encounter Plan of Treatment Upcoming Encounters Date Type Department Care Team (Late Contact Info) Description 11/12/2024 10:45 AM EDT Office Visit [facility] [address] [place] [address] Stan Fletcher MD [address] [place], [place] [phone] documented as of this encounter Visit Diagnoses Not on filedocumented in this encounter Care Teams Director Of Corporate Responsibility Relationship Specialty Start Date End Date Stan Fletcher MD [address] [place] [address] NAYANA Chua [address] PCP - General Internal Medicine 08/20/18 documented as of this encounter
--- OUTSIDE RECORDS SUMMARY | 2024-10-17 08:35 | XMS_ITS | Encounter Summary ---
Author Organization [employer] Address [address] [place] [address] Care Team Providers Care Account Installer Name Role Phone Stan Feltcher MD Primary Care Provider [phone]- [phone] Reason for Visit * Reason Comments Med Refill Encounter Details Date Type Department Care Team (Late st Contact Info) Description 08/29/2022 Refill [facility] [address] [place] [address] Stan Fletcher MD [address] [place] [address] Chronic pain syndrome Social History Tobacco Use Types Packs/Day Years Used Date Smoking Tobacco: Never Assessed Sex and Gender Information Value Date Recorded Sex Assigned at Male 06/19/2022 10:21 AM EDT Legal Sex Male 10:21 AM EDT Gender Identity Male 06/19/2022 10:21 AM EDT Sexual Orientation Don't know 06/19/2022 10 :21 AM EDT documented as of this encounter Plan of Treatment Upcoming Encounters Date Type Department Care Team (Late st Contact Info) Description 11/12/2024 10:45 AM EDT Office Visit [facility]ED[facility] [address] [place] [address] Stan Fletcher MD [address] [place] [address] documented as of this encounter Visit Diagnoses Diagnosis Chronic pain syndrome documented in this encounter Care Teams Account Installer Relationship Specialty Start Date End Date Stan Fletcher MD [address] [place] [address] PCP - General Internal Medicine 08/20/18 documented as of this encounter
--- OUTSIDE RECORDS SUMMARY | 2024-10-17 08:35 | XMS_ITS | Encounter Summary ---
Author Organization [employer] Address [address] [place] [address] [place] [address] Care Team Providers Care Mold Chipper Name Role Phone Stan Fletcher MD Primary Care Provider [phone] Reason for Visit * Reason Comments Med Refill Encounter Details Date Type Department Care Team ([facility] st Contact Info) Description 09/21/2024 Refill [facility] PEDS [address] [place], [place] [phone] Stan Fletcher MD [address] [place] [address] Right sided sciatica Social History Tobacco Use Types Packs/Day Years [...] Upcoming Encounters Date Type Department Care Team ([facility] st Contact Info) Description 11/12/2024 10:45 AM EDT Office Visit [facility] [address] [place] [address] Stan Fletcher MD [address] [place] [address] documented as of this encounter Visit Diagnoses Diagnosis Right sided sciatica Sciatica documented in this encounter Additional Health Concerns Assessment Noted Time PHQ-9 Depression Total Score: 5 11/08/19 24 2:49 PM EDT documented as of this encounter Care Teams Mold Chipper Relationship Specialty Start Date End Date tSan Fletcher MD [address] [place] [address] PCP - General Internal Medicine 08/20/18 documented as of this encounter
--- OUTSIDE RECORDS SUMMARY | 2024-10-17 08:35 | XMS_ITS | Encounter Summary ---
Author Organization [employer] Address [address] [place] [address] Care Team Providers Care Dip Guider Stoves Name Role Phone Stan Fletcher MD Primary Care Provider [phone]- [phone] Reason for Visit * Reason Onset Date Comments Speech Device 07/22/2024 Encounter Details Date Type Department Care Team ([facility] st Contact Info) Description 07/22/2024 Telephone [facility] [address] [place], [place] [phone] Stan Fletcher MD [address] [place] [address] Speech Device Social History Tobacco Use Types Packs/Day Years [...] Telephone Encounter - Rita Castellanos LPN - 09/29/2024 9:40 AM EST FORM WAS RECEIVED AND GENERATED PLACED ON PCP DESK FOR REVIEW AND SIGNATURE,' TC from Nancy with [facility] requesting for the RX form from 09/11/24 to be re faxed over with the Doctors Signature and the date on Page 5 and Signature on the bottom of Page 6. She was also requesting if Pt Office Notes from Apt on 09/11/24 can be faxed over with the Form. Contact Nancy at [phone] IT IS A PRIVATE LINE * Telephone Encounter - Manish Saldana - 09/26/2024 3:13 PM EST TC from Nancy with [facility] requesting for the RX form from 09/11/24 to be re faxed over with the Doctors Signature and the date on Page 5 and Signature on the bottom of Page 6. She was also requesting if Pt Office Notes from Apt on 09/11/24 can be faxed over with the Form. Contact Nancy at [phone] IT IS A PRIVATE LINE * Telephone Encounter - Carmelina Ruiz RN - 07/22/2024 12:40 PM EST Chart Update- speech device paperwork received and requested supporting notes. Pt NS last appt. TC to pt to schedule appt at PCP request to have supporting documentation. LM to RC. documented in this encounter Plan of Treatment Upcoming Encounters Date Type Department Care Team ([facility] st Contact Info) Description 11/12/2024 10:45 AM EDT Office Visit [facility] MED [facility] PED[facility] [address] [place] [address] Stan Fletcher MD [address] [place] [address] documented as of this encounter Visit Diagnoses Not on filedocumented in this encounter Additional Health Concerns Assessment Noted Time PHQ-9 Depression Total Score: 5 11/08/19 24 2:49 PM EDT documented as of this encounter Care Teams Dip Guider Stoves Relationship Specialty Start Date End Date Stan Fletcher MD [address] [place] [address] PCP - General Internal Medicine 08/20/18 documented as of this encounter
--- OUTSIDE RECORDS SUMMARY | 2024-10-17 08:35 | XMS_ITS | Encounter Summary ---
Author Organization [employer] Address [address] [place] [address] Care Team Providers Care Child Day Care Provider Name Role Phone Stan Fletcher MD Primary Care Provider [phone] [phone] Reason for Referral * Imaging (STAT) - Closed Specialty Diagnoses / Procedures Referred By Contac t Referred To Contact Cardiology Diagnoses Palpitations Procedures Transthoracic Echo (TTE) Complete Stan Fletcher MD [address] [place] [address] Phone: tel: fax: [facility] Referral ID Status Reason Start Date Expiration Date V isits Requested Visits Authorized [id number] Closed Perform Procedure 12/11/2022 12/11/2023 1 1 Encounter Details Date Type Department Care Team ([facility] Contact Info) Description 12/07/2022 Orders Only [facility]S [address] [place] [address] Stan Fletcher MD [address] [place] [address] Palpitations (Primary Dx) Social History Tobacco Use Types Packs/Day Years [...] suspected to have Coronavirus/COVID-19? No / Unsure 11/29/2022 8:43 AM EDT documented as of this encounter Plan of Treatment Upcoming Encounters Date Type Department Care Team (Late st Contact Info) Description 11/12/2024 10:45 AM EDT Office Visit [facility] MED & PEDS [address] [place] [address] Stan Fletcher MD [address] [place] [address] Scheduled Orders Name Type Priority Associated Diagnoses Order Schedule Transthoracic Echo (TTE) Complete Echocardiography STAT Palpitations Expected: 12/11/2022 (Approximate), Expires: 12/11/2024 documented as of this encounter Visit Diagnoses Diagnosis Palpitations- Primary documented in this encounter Care Teams Child Day Care Provider Relationship Specialty Start Date End Date Stan Fletcher MD [address] [place] [address] PCP - General Internal Medicine 08/20/18 documented as of this encounter
--- OUTSIDE RECORDS SUMMARY | 2024-10-17 08:35 | XMS_ITS | Encounter Summary ---
Author Organization [employer] Address [address] [place] [address] Care Team Providers Care Machine Welder Name Role Phone Stan Fletcher MD Primary Care Provider [phone]- [phone] Encounter Details Date Type Department Care Team (Late Contact Info) Description 06/27/2023 Orders Only [facility] [address] [place] [address] Stan Fletcher MD [address] [place] [address] Acute pain of left shoulder (Primary Dx) Social History Tobacco Use Types [...] 10:45 AM EDT Office Visit [facility] [address] [place] [address] Stan Fletcher MD [address] [place] [address] documented as of this encounter Visit Diagnoses Diagnosis Acute pain of left shoulder- Primary documented in this encounter Care Teams Machine Welder Relationship Specialty Start Date End Date Stan Fletcher MD [address] [place] [address] PCP - General Internal Medicine 08/20/18 documented as of this encounter
--- OUTSIDE RECORDS SUMMARY | 2024-10-17 08:35 | XMS_ITS | Clinical Summary ---
Author Organization [employer] Address [address] [place] [address] 7 [place] [address] Care Team Providers Care Front Desk Officer Name Role Phone Stan Fletcher MD Primary Care Provider [phone] Allergies Active Allergy Reactions Criticality Noted Date Comments Bee Pollen Hives 10/14/2010 Denture Adhesive Rash High 12/25/2022 Simvastatin Hives 09/06/2011 Sulfa Antibiotics Hives 10/14/2010 Medications Pentips 31G X 5 MM misc TEST BLOOD SUGAR FOUR TIMES DAILY 2022 Active OneTouch Ultra test strip TEST BLOOD SUGAR THREE TIMES DAILY. 100 strip 11 2022 Active Livalo 2 MG tabletIndications:Pure hypercholesterolemia Take 1 tablet by mouth in the morning. 90 tablet 3 2022 Active senna-docusate sodium (Senokot-S) 8.6-50 MG tabletIndications:Drug -induced constipation Take 2 tablets by mouth if needed at bedtime for constipation. 60 tablet 2022 Active polyethylene glycol, PEG, 3350 (MiraLax) 17 GM/SCOOP powderIndications:Drug -induced constipation Take 17 g by mouth in the morning. Take 17 g PO in 8 ounces of water 3 times a day for 3 days, then 17 g PO daily 527 g 2 2022 Active docusate sodium (Colace) 100 MG capsule Take 1 capsule by mouth 2 times daily. 2022 Active cyanocobalamin (Vitamin B-12) 1000 MCG tablet Take 1 tablet by mouth 1 (one) time each day. Active coenzyme Q-10 100 MG capsule Take 1 capsule by mouth 1 (one) time each day. Active cholecalciferol (Vitamin D-3) 25 MCG (1000 UT) capsule Take 1 capsule by mouth 1 (one) time each day. Active insulin aspart FlexPen (NovoLOG) 100 UNIT/ML pen Inject 12 Units under the skin before breakfast, before lunch, and before evening meal. Inject 12 units subcutaneously 3 times Daily 12 mL 11 2022 Active Continuous Blood Gluc Corn Popper (FreeStyle Cathryn 2 [place]) deviceIndications:Type 2 diabetes mellitus without complication, with long-term current use of insulin ([facility]) To use daily 1 each 2022 Active Continuous Blood Gluc Sensor (FreeStyle Cathryn 2 Sensor) miscIndications:Type 2 diabetes mellitus without complication, with long-term current use of insulin ([facility]) To use daily 2 each 11 2022 Active loratadine (Claritin) 10 MG tablet TAKE ONE TABLET EVERY MORNING 30 tablet 5 2022 Active fluticasone (Flovent) 110 MCG/ACT inhaler Inhale 1 puff in the morning and at bedtime. Rinse mouth with water after use to reduce aftertaste and incidence of candidiasis. Do not swallow. 12 g 2 2022 Active cyclobenzaprine (Flexeril) 10 MG tablet Take 1 tablet (10 mg) by mouth 3 times daily for 10 days. 30 tablet 2022 Active albuterol 108 (90 Base) MCG/ACT inhaler 2022 Active triamcinolone (Kenalog) 0.5 % ointment APPLY SPARINGLY TO THE AFFECTED AREA(S) TWICE DAILY 30 g 2023 Active insulin aspart (NovoLOG FLEXPEN) 100 UNIT/ML penIndications:Type 2 diabetes mellitus with hyperglycemia, with long-term current use of insulin ([facility]) INJECT 12 UNITS SUBCUTANEOUSLY THREE TIMES DAILY 15 mL 5 2023 Active benzonatate (Tessalon) 100 MG capsule TAKE ONE CAPSULE THREE TIMES DAILY IN THE MORNING, AT NOON, AND AT BEDTIME NEEDED FOR COUGH 20 capsule 2023 Active methocarbamol (Robaxin) 750 MG tabletIndications:Acut e pain of left shoulder TAKE ONE TABLET FOUR TIMES DAILY FOR 10 DAYS 40 tablet 2023 Active melatonin 5 MG tabletIndications:Othe r insomnia One tab once a day. 30 tablet 3 2023 Active fluticasone (Flonase) 50 MCG/ACT nasal spray INHALE ONE spary IN EACH NOSTRIL DAILY 16 g 5 2023 Active Insulin Lispro (HumaLOG) 100 UNIT/ML solutionIndications:Ty pe 2 diabetes mellitus without complication, with long-term current use of insulin ([facility]) Inject 12 Units as directed 3 times daily. 10 mL 11 2023 Active Januvia 100 MG tablet TAKE ONE TABLET BY MOUTH EVERY DAY 90 tablet 3 2023 Active DULoxetine (Cymbalta) [address] capsuleIndications:Her niation of intervertebral disc between L4 and L5 Take 1 capsule (20 mg) by mouth 2 times daily. Do not crush or chew. 60 capsule 11 03/31 Active Continuous Glucose Corn Popper (FreeStyle Cathryn 2 [place]) deviceIndications:Type 2 diabetes mellitus without complication, with long-term current use of insulin ([facility]) Scan sensor every 8 hours 1 each 2023 Active Continuous Glucose Sensor (FreeStyle Cathryn 2 Sensor) miscIndications:Type 2 diabetes mellitus without complication, with long-term current use of insulin ([facility]) Apply 1 sensor every 14 days 2 each 2023 Active glucose blood (FreeStyle Precision Anjel Test) test stripIndications:Type 2 diabetes mellitus without complication, with long-term current use of insulin ([facility]) Use to test blood sugar 4 times daily 100 each 03/31 Active glucose blood test strip Check the FS 2 times a day 100 each 04/11 Active Lancet Devices (Autolet) lancing device 1 each by Other route 2 times daily. 100 each 04/11 Active glucose blood (OneTouch Ultra) test strip Use to test blood sugar 2 times daily 100 each 04/11 Active atorvastatin (Lipitor) 40 MG tabletIndications:Pure hypercholesterolemia TAKE ONE TABLET EVERY MORNING 30 tablet 11 2023 Active glipiZIDE (Glucotrol) 5 MG tablet TAKE ONE TABLET BY MOUTH THREE TIMES DAILY BEFORE MEALS 180 tablet 3 2023 Active losartan (Cozaar) 50 MG tabletIndications:Prim janeth hypertension TAKE ONE TABLET EVERY MORNING 30 tablet 11 2023 Active Lantus SoloStar 100 UNIT/ML pen INJECT 60 UNITS SUBCUTANEOUSLY ONCE DAILY 30 mL 11 2023 Active TechLite Pen Meridian 32G X 6 MM misc USE FOUR TIMES DAILY] 100 each 11 2023 Active gabapentin (Neurontin) 300 MG capsule TAKE ONE CAPSULE THREE TIMES DAILY 180 capsule 5 2024 Active nabumetone (Relafen) 750 MG tabletIndications:Acut e pain of left shoulder TAKE ONE TABLET TWICE DAILY 60 tablet 5 2024 Active tiZANidine (Zanaflex) 4 MG tabletIndications:Righ t sided sciatica TAKE ONE TABLET EVERY 6 TO 8 HOURS NEEDED. NO MORE THAN THREE TABLETS PER 24 HOURS 60 tablet 1 2024 Active oxyCODONE-acetaminophe n (Percocet) 7.5-325 MG tabletIndications:Acut e pain of left shoulder TAKE ONE TABLET EVERY 6 HOURS NEEDED FOR SEVERE PAIN 15 tablet 2024 Active oxyCODONE-acetaminophe n (Percocet) 7.5-325 MG tabletIndications:Acut e pain of left shoulder TAKE ONE TABLET EVERY 6 HOURS NEEDED FOR SEVERE PAIN 15 tablet 09/30 Discontinued tiZANidine (Zanaflex) 4 MG tabletIndications:Righ t sided sciatica TAKE ONE TABLET EVERY 6 TO 8 HOURS NEEDED. NO MORE THAN THREE TABLETS PER 24 HOURS 60 tablet 1 09/24 Discontinued Active Problems Problem Noted Date Diagnosed Date Nonspeaking deaf 09/19/2024 Acute cough 05/29/2023 Assessment & Plan (05/29/2023 3:01 PM EDT): Ddx bronchitis, declined further use of steroids. Will send augmentin and doxycyline, discontinue azithromycin. Also prescribed antitussive agent. RTC if no improvement. Did resend higher dose of flovent unclear why he was on 44 mcg instead of the 110 mcg that is in the system. Sent CXR to r/o PNA. RTC if no improvement. Drug-induced constipation 12/28/2022 Assessment & Plan (12/28/2022 11:17 AM EDT): Ddx Drug indiced constipation in the setting of opiate use sp surgery on 12/25/22. Will start on miralax and Senokot-S. Follow up with PCP scheduled for 01/02/23. Herniation of intervertebral disc between L4 and L5 09/05/2022 Anterolisthesis 09/05/2022 Bilateral deafness 04/09/2019 Hypertensive disorder 05/30/2017 Right inguinal hernia 05/30/2017 Chest pain 11/06/2011 Diabetes mellitus 11/06/2011 Pure hypercholesterolemia 10/06/2011 Palpitations 07/07/2011 Allergic rhinitis 12/27/2010 Encounters Date Type Department Care Team Description 09/30/2024 Telephone [facility] [address] [place] [address] Stan Fletcher MD Call Back Request 09/29/2024 Refill [facility] [address] [place] [address] Stan Fletcher MD Acute pain of left shoulder 09/21/2024 Refill [facility] [address] [place] [address] Stan Fletcher MD Right sided sciatica 09/11/2024 9:45 AM EST Office Visit [facility] [address] [place] [address] Stan Fletcher MD Herniation of intervertebral disc between L4 and L5 (Primary Dx); Anterolisthesis; Greater trochanteric bursitis of left hip; Type 2 diabetes mellitus without complication, with long-term current use of insulin ([facility]) 09/11/2024 Travel 09/04/2024 Orders Only GENERIC EXTERNAL DATA DEPARTMENT Provider, Generic External Data 08/25/2024 Orders Only GENERIC EXTERNAL DATA DEPARTMENT Provider, Generic External Data 08/25/2024 Refill [facility] [address] [place] [address] Stan Fletcher MD Acute pain of left shoulder 08/11/2024 Refill [facility] [address] [place] [address] Rosemarie Madden MD Right sided sciatica 07/24/2024 Refill [facility] [address] [place] [address] Cristhian Cruz MD 07/22/2024 Telephone [facility] [address] [place], [place] [phone] Stan Fletcher MD Speech Device from Last 3 Months Immunizations Name Administration Dates Next Due Influenza Injectable Quadriv alant Preservative Free IIV4 MDCK 07/19/2023,04/20/2022,06/25/2021 Influenza injectable quadriv alent IIV4 with preservative 06/03/2019,06/28/2016 Influenza injectable quadriv alent preservative free 05/01/2020,07/29/2018,05/30/2017 Influenza, IIV3, injectable 04/18/2011, 0 Influenza, Injectable, MDCK, preservative free 04/25/2024 Influenza, Split (incl. martha fied surface antigen) 06/10/2012 Moderna Covid-19 Vaccine 6+ Bivalent 06/10/2022 Pneumococcal Conjugate PCV 20 07/26/2023 Pneumococcal Polysaccharide PPSV23 06/03/2019 RSV Adjuvant 04/25/2024 Tdap 10/20/2015 Zoster, Recombinant 01/24/2022,11/23/2021 Social History Tobacco Use Types Packs/Day Years Used Date Smoking Tobacco: Never Smokeless Tobacco: Never Tobacco Cessation:Counseling Given: Not Answered Depression Answer Date Recorded Patient Health Questionnaire-9 [...] Don't know 06/19/2022 10 :21 AM EDT Last Filed Vital Signs Vital Sign Reading [...] Mass Index 29.86 09/11/2024 9:42 AM EST Plan of Treatment Upcoming Encounters Date Type Department Care Team (Late st Contact Info) Description 11/12/2024 10:45 AM EDT Office Visit [facility] [address] [place] [address] Stan Fletcher MD [address] [place] [address] Health Maintenance Due Date Last Done Comments CT Colonography 1960 Colonoscopy 1960 FIT 1960 FOBT 1960 Lipid Panel 1960 Sigmoidoscopy 1962 Alcohol/Substance Use Screening 1974 Hepatitis C Screening 1980 Diabetes: Urine Protein Screening 1981 COVID-19 Vaccine ( season) 2024 08/23/2023, 06/10/2022, 07/18/2021, Additional history exists Eye Exam 10/20/2024 10/20/2022 SDOH Screening 10/30/2024 10/31/2023 Depression Screening 11/07/2024 11/08/2023, 11/08/19 24 Diabetes: Hemoglobin A1C 12/10/2024 025, 08/25/2024, 03/31/2024, Additional history exists Diabetes: Foot Exam 03/31/2025 03/31/2024 Tobacco Screening 05/05/2025 05/05/2024 DTaP/Tdap/Td Vaccines (2 - Td or Tdap) 10/19/2025 10/20/2015 Colorectal Cancer Screening 12/05/2026 FIT DNA/Cologuard 12/05/2026 12/06/2023 Zoster Vaccines Completed 01/24/2022, 11/23/2021 Pneumococcal Vaccine: 50+ Years Completed 07/26/2023, 06/03/2019 Influenza Vaccine Completed 04/25/2024, , 04/20/2022, Additional history exists RSV Patients and Patients Aged 60 years or older Completed 04/25/2024 HIB Vaccines Aged Out No longer eligi ble based on patient's age to complete this topic HIV Screening Discontinued HPV Vaccines Aged Out No longer eligi ble based on patient's age to complete this topic Hepatitis A Vaccines Aged Out No long er eligible based on patient's age to complete this topic Hepatitis B Vaccines Aged Out No long er eligible based on patient's age to complete this topic IPV Vaccines Aged Out No longer eligi ble based on patient's age to complete this topic Meningococcal Vaccine Aged Out No rebecca marycarmen eligible based on patient's age to complete this topic RSV under 20 months Aged Out No longe r eligible based on patient's age to complete this topic Rotavirus Vaccines Aged Out No longer eligible based on patient's age to complete this topic Procedures Procedure Name Priority Date/Time Associated Diagnosis Comments POCT GLYCATED HEMOGLOBIN, TOTAL Routine 09/11/2024 10:40 AM EST Type 2 diabetes mellitus without complication, with long-term current use of insulin ([facility]) POCT GLUCOSE Routine 09/11/2024 10:39 AM EST Type 2 diabetes mellitus without complication, with long-term current use of insulin ([facility]) FL GUIDANCE IN OR Routine 09/04/2024 1:0 5 PM EST GLUCOSE, WHOLE BLOOD Routine 09/04/2024 12:42 PM EST BASIC METABOLIC PANEL Routine 08/25/2024 11:15 AM EST HEMOGLOBIN A1C Routine 08/25/2024 11:15 AM EST CBC Routine 08/25/2024 11:15 AM EST LAB COLOGUARD?? COLON CANCER SCREEN Routine 12/06/2023 7:58 AM EDT Screening for colon cancer from Last 3 Months or Most Recently Relevant to Health Maintenance Results * (ABNORMAL) POCT HGB A1C (09/11/2024 10:40 AM EST) Pathologist [facility] Hemoglobin A1C 8.0(A) 4.0 - 6.0 % QC Media Lot # [id number] Lot# Expiration Date [id number] Blood 09/11/2024 10:4 0 AM EST Stan Fletcher MD POINT OF CARE TEST ENTER/ED IT ORDERABLES Final Result * (ABNORMAL) POCT Glucose (09/11/2024 10:39 AM EST) Pathologist [facility] Glucose Blood, POC 213(A) 60 - 200 mg/dL QC Media Lot # [id number] Lot# Expiration Date [id number] Blood Capillary blood specimen / Unknown 09/11/2024 10:39 AM EST us Stan Fletcher MD POINT OF CARE TEST ENTER/ED IT ORDERABLES Final Result * FL Guidance in OR (09/04/2024 1:05 PM EST) Anatomical Region Laterality Modality X-Ray Angiograph y 09/04/2024 1:05 PM EST Narrative 09/05/2024 2:02 PM EST ? [facility] ?[address] ?[place] [address] ? Fluoroscopy Report ? Signed ? Patient: Labsherry,Nick ?MR#: [id number] ?? [id number] ? : 1960 ?Acct:[id number] ? Age/Sex: 63 / M ?ADM Date: 09/04/24 ? Loc: HO.SSS ? Attending Dr: Antwan Martinez MD, PhD ? Ordering Physician: Antwan Martinez MD, PhD ?? Date of Service: 09/04/24 ?? Procedure(s): FL guidance in OR ?? Accession Number(s): [id number] ? cc: Stan Fletcher MD; Antwan Martinez MD, PhD ? EXAMINATION: ??FL GUIDANCE ONLY ? HISTORY: L5-S1 microdiscectomy ? COMPARISON: ?? Comparison is made with the prior examination dated 12/25/2022. ? TECHNIQUE: ?? Fluoroscopy time: Less than 0.1 minute. ?? Cumulative Dose: 3.86 mGy. ?? DAP: 0.850 uGy-m2 (microgray-meter squared). ?? Images: 1. ? FINDINGS: ?? A single fluoroscopic spot film of the lumbar spine in the lateral ?? projection demonstrates a probe directed toward the L5-S1 ?? intervertebral disc space and posterior approach. The patient is status ?? post posterior fusion of L4 and L5 with pedicle screws, spinal ?? stabilization rods, and an intervertebral spacer. ? FL/FL guidance in OR ?? IMPRESSION: ?? Fluoroscopy during procedure. Please see procedure report for ?? additional information. ? Electronically signed by: ??Michael Salomon MD ??09/05/2024 01:59 PM EST ?? RP ? Dictated By: ?Michael Salomon MD ? Signed By: ?<Electronically signed by Michael Salomon MD in OV> ?09/05/24 1359 ? DD/ 1305 ? TD/TT: 09/04/24 1345 ? Background Check Coordinator: ? Procedure Note Donotuseinterpreter, Image - 09/05/[address] [address] Fluoroscopy Report Signed Patient: Nick EscobarMR#: [id number] : 1960Acct:[id number] Age/Sex: 63 / MADM Date: 09/04/24 Loc: HO.SSS Attending Dr: Antwan Martinez MD, PhD Ordering Physician: Antwan Martinez MD, PhD Date of Service: 09/04/24 Procedure(s): FL guidance in OR Accession Number(s): [id number] cc: Stan Fletcher MD; Antwan Martinez MD, PhD EXAMINATION: FL GUIDANCE ONLY HISTORY: L5-S1 microdiscectomy COMPARISON: Comparison is made with the prior examination dated 12/25/2022. TECHNIQUE: Fluoroscopy time: Less than 0.1 minute. Cumulative Dose: 3.86 mGy. DAP: 0.850 uGy-m2 (microgray-meter squared). Images: 1. FINDINGS: A single fluoroscopic spot film of the lumbar spine in the lateral projection demonstrates a probe directed toward the L5-S1 intervertebral disc space and posterior approach. The patient is status post posterior fusion of L4 and L5 with pedicle screws, spinal stabilization rods, and an intervertebral spacer. FL/FL guidance in OR IMPRESSION: Fluoroscopy during procedure. Please see procedure report for additional information. Electronically signed by: Michael Salomon MD 09/05/2024 01:59 PM EST Dictated By: Michael Salomon MD Signed By: <Electronically signed by Michael Salomon MD in OV> 09/05/24 1359 DD/ 1305 TD/TT: 09/04/24 1345 Background Check Coordinator: us [facility] External Provider IMG IR PROCEDURES Edited Result - Final * (ABNORMAL) Glucose, Whole Blood (09/04/2024 12:42 PM EST) Glucose, Whole Blood 198(H) 60 - 115 mg/dL [facility] Comment:METER #: [id number] 09/04/2024 12:4 2 PM EST 09/04/2024 12:45 PM EST us Generic External Data Provider LAB BLOOD ORDERAB LES Final Result [facility] [address] [place] [address] [phone] * (ABNORMAL) CBC (08/25/2024 11:15 AM EST) [facility] White Blood Count 5.5 4.8 - 10.8 X10*3/uL [facility] Red Blood Count 4.24(L) 4.60 - 5.80 X10*6/uL [facility] Hemoglobin 13.7(L) 14.0 - 18.0 g/dl [facility] Hematocrit 39.6(L) 42.0 - 52.0 % [facility] Mean Corpuscular Volume 93.4 80.0 - 98.0 fL [facility] Mean Corpuscular Hemoglobin 32.3 27.0 - 33.0 pg [facility] Mean Corpuscular HGB Conc 34.6 31.0 - 36.0 g/dl [facility] Red Cell Distribution Width 12.5 11.0 - 16.0 % [facility] Platelet Count 174 160 - 400 X10*3/uL [facility] Mean Platelet Volume 10.0 9.4 - 12.4 fL [facility] NRBC Pct Auto 0.0 0.0 - 0.2 /100WBC [facility] NRBC Abs Auto 0.000 0.0 - 0.012 X10*3/uL [facility] 08/25/2024 11:1 5 AM EST 08/25/2024 11:15 AM EST Generic External Data Provider LAB BLOOD ORDERAB LES Final Result Performing Organization Address [facility] Co de Phone Number [facility] [address] [place] [phone] * (ABNORMAL) Hemoglobin A1c (08/25/2024 11:15 AM EST) Hemoglobin A1c 8.2(H) <6.0 % [facility] Comment:Hemoglobin A1C Refer ence Range Adults: 4.8 - 6.0 % Non diabetic: < 6.0 % Goal: < 7.0 %Additional Action Suggested: > 8.0 %Note: Hemoglobin A1c results are invalid for patients with abnormal amounts of HbF. Blood transfusions may impact the HbA1c concentration in the patient sample. Estimated Average Glucose 189 mg/dL [facility] Comment:eAG = Estimated ave rage glucose which is %A1C expressed asaverage glucose, using the formula of the E4G-[id number] Glucose study (ADAG), Diabetes Care, Vol.31,#8,Mar. 2007 08/25/2024 11:1 5 AM EST 08/25/2024 11:15 AM EST [employer] External Data Provider LAB BLOOD ORDERAB LES Final Result Performing Organization Address [facility] Co de Phone Number [facility] [address] [place] [phone] * (ABNORMAL) Basic Metabolic Panel (08/25/2024 11:15 AM EST) Sodium 141 135 - 145 mmol/L [facility] Potassium 4.1 3.3 - 5.1 mmol/L [facility] Chloride 107 96 - 108 mmol/L [facility] Carbon Dioxide 27 22 - 29 mmol/L [facility] Anion Gap 11(L) 12 - 20 [facility] Urea Nitrogen (BUN) 21(H) 9 - 16 mg/dL [facility] Creatinine, Serum 1.22 0.5 - 1.4 mg/dL [facility] Creatinine Clr Calc Pharmacy 69.4 [facility] Comment:eGFR (calculated fro m the MDRD study equation) and eCrCl(calculated from the Cockcroft-Gault equation) are based ondifferent parameters and may not yield comparable results.If eCrCl result is absurd, please check patient'sheight/weight. Estimated Glomerular Filt Rate >60 [facility] Comment:Chronic Kidney Disea se: Estimated GFR < 60 mL/min/1.76l4Tyxzkn Kidney Disease: Estimated GFR < 15 mL/min/1.73m2 Glucose 144(H) 60 - 115 mg/dL [facility] Calcium 9.5 8.4 - 10.2 mg/dL [facility] 08/25/2024 11:1 5 AM EST 08/25/2024 11:15 AM EST us Generic External Data Provider LAB BLOOD ORDERAB LES Final Result [facility] [address] [place] [phone] * (ABNORMAL) Cologuard?? colon cancer screening (12/06/2023 7:58 AM EDT) Cologuard Result Positive( A) Negative 12/13/2023 5:48 PM EDT [employer] (CLIA #:[id number]) Comment: POSITIVE TEST RESULT. A positive Cologuard result should be followed with a colonoscopy or visual examination of the colon. The normal value (reference range) for this assay is negative. TEST DESCRIPTION: Composite algorithmic analysis of stool DNA-biomarkers with hemoglobin immunoassay. ?? Quantitative values of individual biomarkers are not reportable and are not associated with individual biomarker result reference ranges. Cologuard is intended for colorectal cancer screening of adults of either sex, 45 years or older, who are at average-risk for colorectal cancer (CRC). Cologuard has been approved for use by the U.S. FDA. The performance of Cologuard was established in a cross sectional study of average-risk adults aged 50-84. Cologuard performance in patients ages 45 to 49 years was estimated by sub-group analysis of near-age groups. Colonoscopies performed for a positive result may find as the most clinically significant lesion: colorectal cancer [4.0%], advanced adenoma (including sessile serrated polyps greater than or equal to 1cm diameter) [20%] or non- advanced adenoma [31%]; or no colorectal neoplasia [45%]. These estimates are derived from a prospective cross-sectional screening study of 10,000 individuals at average risk for colorectal cancer who were screened with both Cologuard and colonoscopy. (Saritha Otto al, N Engl J Med 2014;370(14):9648-2005.) Cologuard may produce a false negative or false positive result (no colorectal cancer or precancerous polyp present at colonoscopy follow up). A negative Cologuard test result does not guarantee the absence of CRC or advanced adenoma (pre-cancer). The current Cologuard screening interval is every 3 years. ([place] [employer] and U.S. Multi-Society Task Force). Cologuard performance data in a 10,000 patient pivotal study using colonoscopy as the reference method can be accessed at the following location: www.AnyPerk/results. Additional description of the Cologuard test process, warnings and precautions can be found at [email or web address].com. Stool specimen (specimen) Rectal contents / Unknown 12/06/2023 7:58 AM EDT 12/07/2023 10:55 AM EDT Stan Fletcher MD LAB MOLECULAR DIAGNOSTICS O RDERABLES Final Result [employer] (CLIA #:[id number]) [place] [address], from Last 3 Months or Most Recently Relevant to Health Maintenance Insurance [facility] MEDICARE ADVANTAGE HMO * Guarantor: Nick Escobar Account Type Relation to Patient Date of Phone Billing Address Personal/Family Self [address] [place] Care Teams Front Desk Officer Relationship Specialty Start Date End Date Stan Fletcher MD [address] [place] [address] [place] [address] PCP - General Internal Medicine 08/20/18
--- OUTSIDE RECORDS SUMMARY | 2024-10-17 08:35 | XMS_ITS | Encounter Summary ---
Author Organization [employer] [facility] Address [address] [place] [address] Care Team Providers Care Patient Case Coordinator Name Role Phone Stan Fletcher MD Primary Care Provider [phone]- [phone] Encounter Details Date Type Department Care Team (Late Contact Info) Description 08/03/2022 Telephone [facility] MED & PEDS [address] [place] [address] Stan Fletcher MD [address] [place] [address] Social History Tobacco Use Types Packs/Day Years [...] Description 11/12/2024 10:45 AM EDT Office Visit [facility] MED & PEDS [address] [place] [address] Stan Fletcher MD [address] [place] [address] documented as of this encounter Visit Diagnoses Not on filedocumented in this encounter Care Teams Patient Case Coordinator Relationship Specialty Start Date End Date Stan Fletcher MD [address] [place] [address] PCP - General Internal Medicine 08/20/18 documented as of this encounter
--- OUTSIDE RECORDS SUMMARY | 2024-10-17 08:35 | XMS_ITS | Encounter Summary ---
Author Organization [employer] Address [address] [place] [address] Care Team Providers Care Loan Services Professional Name Role Phone Stan Fletcher MD Primary Care Provider +1 [phone] Reason for Referral * Consultation (Routine) - Pending Review Specialty Diagnoses / Procedures Referred By Contivan t Referred To Contact Gastroenterology Diagnoses Positive colorectal cancer screening using Cologuard test Stan Fletcher MD [address] [place] [address] Phone: tel: fax: Neli Jaeger MD [address] [place] [address] Phone: tel: fax: Referral ID Status Reason Start Date Expiration Date Visits Requested Visits Authorized [id number] Pending Review Specialty Services Required 12/14/2023 12/13/2024 1 1 Encounter Details Date Type Department Care Team ([facility] st Contact Info) Description 12/14/2023 Orders Only [facility] MED & PEDS [address] [place], [place] [phone] Stan Fletcher MD [address] [place] [address] Positive colorectal cancer screening using Cologuard test (Primary Dx) Social History Tobacco Use Types [...] Upcoming Encounters Date Type Department Care Team ([facility] st Contact Info) Description 11/12/2024 10:45 AM EDT Office Visit [facility] MED & PEDS [address] [place] [address] Stan Fletcher MD [address] [place] [address] Scheduled Referrals Name Type Priority Associated Diagnoses Order Schedule Referral to Gastroenterology Outpatient Referral Routine Positive colorectal cancer screening using Cologuard test Expected: 12/14/2023 (Approximate), Expires: 12/13/2024 documented as of this encounter Visit Diagnoses Diagnosis Positive colorectal cancer screening using Cologuard test- Primary documented in this encounter Additional Health Concerns Assessment Noted Time PHQ-9 Depression Total Score: 5 11/08/19 24 2:49 PM EDT documented as of this encounter Care Teams Loan Services Professional Relationship Specialty Start Date End Date Stan Fletcher MD [address] [place] [address] PCP - General Internal Medicine 08/20/18 documented as of this encounter
--- OUTSIDE RECORDS SUMMARY | 2024-10-17 08:35 | XMS_ITS | Encounter Summary ---
Author Organization [employer] Address [address] [place] [address] Care Team Providers Care Lace And Textiles Restorer Name Role Phone Stan Fletcher MD Primary Care Provider [phone] [phone] Reason for Visit * Reason Comments Med Refill Encounter Details Date Type Department Care Team (Late st Contact Info) Description 09/29/2024 Refill [facility] MEDICINE [address] [place] [address] Stan Fletcher MD [address] [place], [place] [phone] Acute pain of left shoulder Social History Tobacco Use Types Packs/Day Years [...] Upcoming Encounters Date Type Department Care Team ([facility] st Contact Info) Description 11/12/2024 10:45 AM EDT Office Visit [facility] MED & PEDS [address] [place] [address] Stan Fletcher MD [address] [place] [address] documented as of this encounter Visit Diagnoses Diagnosis Acute pain of left shoulder documented in this encounter Additional Health Concerns Assessment Noted Time PHQ-9 Depression Total Score: 5 11/08/19 24 2:49 PM EDT documented as of this encounter Care Teams Lace And Textiles Restorer Relationship Specialty Start Date End Date Stan Fletcher MD [address] [place] [address] PCP - General Internal Medicine 08/20/18 documented as of this encounter
--- NOTE | 2024-10-17 08:38 | A.OFFVIS_ITS ---
Intake Visit Reasons: Newprob-Greater trochanteric bursitis of left hip Intake Note: Nick is a 63 year old male who presents today for an evaluation of left hip pain. Patient reports his pain presented a couple of months ago and is located at his buttocks area. Denies injury. Intermittent numbness or tingling. Finds some relief with ibuprofen. Hx of right hip cortisone injection about 10 years ago that provided him with relief. Cold Strip Feeder Name: Deon Allergies bee pollen [BEE STINGS] Allergy (Severe, Verified 10/17/24 08:54) SWELLING and facial swelling Sulfa (Sulfonamide Antibiotics) [SULFA (SULFONAMIDE ANTIBIOTICS)] Allergy (Severe, Verified 10/17/24 08:54) swelling, hives prednisone Allergy (Verified 10/17/24 08:54) heart palpitation, raises glucose levels adhesive Adverse Reaction (Intermediate, Verified 10/17/24 08:54) Rash, burning HPI HPI Newprob-Greater trochanteric bursitis of left hip: Details: 63-year-old gentleman returns to the office today for new onset left hip pain. He states the pain has been going on for approximately 2 months. Does have a history of right hip pain approximately 10-13 years ago he had an injection w hich gave him significant relief. Also had low back surgery years ago. He states the pain in his left hip is different than the pain he had in his back prior to surgery. Complains of pain along the lateral side of the hip which extends into the buttock region and also has discomfort with sleeping on the left side. He denies numbness and tingling or burning sensations down the leg. Does take ibuprofen every 8 hours which provides minimal relief and he is able to perform most activities up until the pain returns. No other treatment to date. [facility] Medical History Wears dentures Chronic pain syndrome Personal history of COVID-19 Hx of renal calculi Elevated cholesterol HTN (hypertension) Seasonal allergies Deaf Diabetes Surgical History History of carpal tunnel surgery of left wrist (03/27/24) History of lumbar surgery (12/25/22) S/P placement of nerve stimulator Hx of cholecystectomy History of right inguinal hernia repair (~12/29/19) History of lithotripsy History of bilateral inguinal hernia repair Family History Mother History of lung cancer Social History Household Members: Spouse and Family Housing: Apartment Are you a primary hearing care professional to a significant other at home: No Do you presently have visiting nurse or other home services: No 75 years or older and lives alone: No Alcohol intake: current Alcohol intake frequency: holidays/special occasions only Patient Tobacco Use Status: Never used Tobacco Advance Directives Date on File: 12/27/22 service: No Current occupational status: employed Current occupation: [employer] Review of Systems Const All systems reviewed & are unremarkable except as noted in HPI and below Physical Exam Const General: cooperative and no acute distress Orientation/consciousness: patient oriented x3 Resp Effort & Inspection: normal respiratory effort and able to speak in complete sentences Cardio Peripheral pulses: Peripheral pulses 2+ throughout Neuro General: patient oriented x3 Extrem Other: Left hip normal to inspection. No pain with ROM of the hip. Pain along the greater trochanter. No pain with hip flexion or abduction.There is tenderness along the si joint, Negative SLR. NVI. Office Procedures AMB Joint Injection/Aspiration Joint Injection/Aspiration Details: Left trochanteric bursa Prep: site was prepped using aseptic technique, ethochloride spray was applied and injection warnings given Injected: 40 mg of, DepoMedrol, with 8 mL of and 1% plain lidocaine Procedure: The patient tolerated the procedure well and there was some relief with the local anesthesia Coding 15955 - Glenohumeral/Tronchanteric Bursa/Intraarticular Procedure code (CPT) selection complete Results Reviewed Results Reviewed: X-rays of the left hip obtained in the office today significant for moderate degenerative arthritis. Assessment & Plan Assessment & Plan (1) Trochanteric bursitis, left hip: Code(s): M70.62 - Trochanteric bursitis, left hip Category: Medical Plan: We discussed options today which include cortisone injection to the left hip which he is interested in today. Patient consented to left hip and trochanteric bursa injection which he tolerated well. I did offer physical therapy which he declined however I did provide him with some home exercises to work on. He can continue with the ibuprofen as needed. We also discussed their diabetes and the effect the steroid can have on thier blood glucose levels; therefore, they will continue to monitor these very closely over the next 72 hours . If symptoms persist or worsen he will contact our office otherwise follow up as needed. Orders: Orders XR hip LT min 2V Today M25.552 - Pain in left hip Coding Level of Care Code Est Pt Level 3 (83017) Complex EM visit Add On G2211 Diagnoses Trochanteric bursitis, left hip M70.62 CPT Codes Coding - Joint 7: 51474 - Glenohumeral/Tronchanteric Bursa/Intraarticular ([id number])
== END 2024-10-17 10:22 | disposition home or self-care (01) ==
PROVIDERS: PCP Internal Medicine; Visit Provider Physician Assistant
DX: M70.62 Trochanteric bursitis, left hip (principal)
CPT/HCPCS: 20610; 99213

== ENCOUNTER → 2024-10-17 08:28 | Outpatient (BNV) | payer MEDICARE, MEDICAID, SELFPAY | PROVIDERS: Visit Provider Radiology Diagnostic Radiology | DX: M16.0 Bilateral primary osteoarthritis of hip (principal) | CPT/HCPCS: 73502 ==

== ENCOUNTER → 2024-11-04 15:30 | Outpatient (BNVA) | payer MEDICARE, MEDICAID, SELFPAY | PROVIDERS: Visit Provider Orthopaedic Surgery | DX: R20.0 Anesthesia of skin (principal); R20.2 Paresthesia of skin; E11.9 Type 2 diabetes mellitus without complications; H91.90 Unspecified hearing loss, unspecified ear | CPT/HCPCS: 99212 ==

== ENCOUNTER → 2024-11-04 15:30 | Outpatient (AMB) | payer MEDICARE, MEDICAID, SELFPAY ==
--- NOTE | 2024-11-04 15:34 | A.OFFVIS_ITS ---
Intake Visit Reasons: New problem RT hand pain numbness Intake Note: Nick 64 yr old left hand dominant male who is hearing impaired, presents today for a new problem visit for his right hand CTS. States CTS are daily, on and off for the last 5 months. Patient explains it is worse when he is working. He works for [employer]. EMG done only for his left hand Hx of left hand CTR 03/27/[address] Stevens. IMPRESSION: 1. This is an abnormal study. 2. There is electrodiagnostic evidence for left moderate-severe median neuropathy at the wrist, consistent with carpal tunnel syndrome. 3. There is no electrodiagnostic evidence for ulnar neuropathy, brachial plexopathy, or cervical radiculopathy.\ Allergies bee pollen [BEE STINGS] Allergy (Severe, Verified 11/04/24 15:52) SWELLING and facial swelling Sulfa (Sulfonamide Antibiotics) [SULFA (SULFONAMIDE ANTIBIOTICS)] Allergy (Severe, Verified 11/04/24 15:52) swelling, hives prednisone Allergy (Verified 11/04/24 15:52) heart palpitation, raises glucose levels adhesive Adverse Reaction (Intermediate, Verified 11/04/24 15:52) Rash, burning HPI HPI New problem RT hand pain numbness: Details: Nick is a 64 year old right hand dominant deaf man who returns to discuss his right hand numbness. He complains of right hand numbness , symptoms intermittent, but daily, worse at night or with activities. He says it may be his whole hand, but he is not sure if his small finger goes numb at times. He is S/P left carpal tunnel release and left index finger trigger release, DOS 03/27/24. He says he still has numbness in his left hand, but this has improved somewhat since surgery. He says it is feeling much better. He is a Diabetic, his most recent HgA1c was 8.2% on 08/25/24. [facility] Medical History Wears dentures Chronic pain syndrome Personal history of COVID-19 Hx of renal calculi Elevated cholesterol HTN (hypertension) Seasonal allergies Deaf Diabetes Surgical History History of carpal tunnel surgery of left wrist (03/27/24) History of lumbar surgery (12/25/22) S/P placement of nerve stimulator Hx of cholecystectomy History of right inguinal hernia repair (~12/29/19) History of lithotripsy History of bilateral inguinal hernia repair Family History Mother History of lung cancer Social History Household Members: Spouse and Family Housing: Apartment Are you a primary patient care assistant to a significant other at home: No Do you presently have visiting nurse or other home services: No 75 years or older and lives alone: No Alcohol intake: current Alcohol intake frequency: holidays/special occasions only Patient Tobacco Use Status: Never used Tobacco Advance Directives Date on File: 12/27/22 service: No Current occupational status: employed Current occupation: [employer] Review of Systems Const All systems reviewed & are unremarkable except as noted in HPI and below Physical Exam Const General: cooperative, healthy appearing and no acute distress Orientation/consciousness: patient oriented x3 HEENT Head: Yes normocephalic and Yes atraumatic Eyes EOM: EOMs intact bilaterally Resp Effort & Inspection: normal respiratory effort and able to speak in complete sentences Cardio Jugular venous distension: no JVD Skin General skin exam: turgor normal Rashes: no rashes Neuro General: patient oriented x3 Extrem Other: Evaluation of Right Upper Extremity: The patient is alert, oriented, and in no acute distress Neuro: Median, Ulnar, Radial nerves motor and sensory intact and sensation is normal to the tips of all digits No thenar or intrinsic wasting Good APB muscle belly firing and good finger cross Vascular: Cap refill brisk ROM: He can make a fist and extend all his digits No locking or catching Nerve Conduction Study: Left-side only IMPRESSION: 1. This is an abnormal study. 2. There is electrodiagnostic evidence for left moderate-severe median neuropathy at the wrist, consistent with carpal tunnel syndrome. 3. There is no electrodiagnostic evidence for ulnar neuropathy, brachial plexopathy, or cervical radiculopathy. Lina Nieves MD, SRIKANTH 12/21/23 Psych Appearance: grossly normal Affect: normal affect Attitude: cooperative Assessment & Plan Assessment & Plan (1) Numbness and tingling in right hand: Code(s): R20.0 - Anesthesia of skin; R20.2 - Paresthesia of skin Category: Medical (2) Deaf: Code(s): H91.90 - Unspecified hearing loss, unspecified ear Category: Medical (3) Diabetes: Code(s): E11.9 - Type 2 diabetes mellitus without complications Category: Medical Plan Assessment & Plan 1. Right hand numbness In the median nerve distribution, unsure about small finger numbness Symptoms intermittent, but daily, worse at night I ordered a NCS to assess for peripheral nerve compression He will be mindful of whether his small finger goes numb as well He will follow up when completed for review I did explain that he would need to work on his diabetes and bring his hemoglobin A1c down to 8.0 or below. 2. Left carpal tunnel syndrome, S/P release 3. Left index finger trigger finger, S/P release DOS 03/27/24 Pre-operatively with dense numbness Now with improved but not yet normal sensation in the median nerve distribution No complaints of locking or catching today Scribed for Brittanie Stevens MD by Bertin Palomo, medical services assistant, on 11/04/24 at 4:05 PM, EST. Orders: Orders NE nerve conduction velocity Today R20.0 - Anesthesia of skin, R20.2 - Paresthesia of skin Coding Level of Care Code Est Pt Level 3 (49565) Diagnoses Numbness and tingling in right hand R20.0; R20.2 Deaf H91.90 Diabetes E11.9
== END ==
LOC: HO.HOS 15:31
PROVIDERS: Visit Provider Orthopaedic Surgery
DX: R20.0 Anesthesia of skin (principal); R20.2 Paresthesia of skin; E11.9 Type 2 diabetes mellitus without complications
CPT/HCPCS: 99213

== ENCOUNTER 2024-11-05 10:15 | Outpatient (REF) | payer MEDICARE, MEDICAID, SELFPAY ==
[2024-11-05 15:24] LABS: Creatinine Urine 98.24 mg/dL; Microalbum/Creatinine Ratio Ur 20.3 ug/mg cr (<30)
== END 2024-11-05 10:16 | disposition home or self-care (01) ==
LOC: HO.CHCLDS 10:15
PROVIDERS: Visit Provider Internal Medicine
DX: E11.9 Type 2 diabetes mellitus without complications (principal); Z79.4 Long term (current) use of insulin
CPT/HCPCS: 82043; 82570

== ENCOUNTER 2024-11-06 13:46 | Outpatient (AMB) | payer MEDICARE, MEDICAID, SELFPAY ==
--- NOTE | 2024-11-06 13:55 | A.SPINEOV_ITS ---
Intake Visit Reasons: 2nd post op Intake Note: Mr. Escobar is here today for his 2nd post op. Service Worker Helper Required: Yes Service Worker Helper Name: Tablet Allergies bee pollen [BEE STINGS] Allergy (Severe, Verified 11/04/24 15:52) SWELLING and facial swelling Sulfa (Sulfonamide Antibiotics) [SULFA (SULFONAMIDE ANTIBIOTICS)] Allergy (Severe, Verified 11/04/24 15:52) swelling, hives prednisone Allergy (Verified 11/04/24 15:52) heart palpitation, raises glucose levels adhesive Adverse Reaction (Intermediate, Verified 11/04/24 15:52) Rash, burning Assessment & Plan Assessment & Plan (1) Lumbar disc herniation: Code(s): M51.26 - Other intervertebral disc displacement, lumbar region Category: Medical Plan Mr Escobar is 2 months out from a left L5-S1 microdiskectomy. He was doing well until maybe 3 or 4 weeks ago when he started to notice a right-sided leg pain that was radiating down toward the front of his thigh. It goes on the anterior lateral side of his leg. There is a component as well that goes down behind his hamstring. He did not have the pain before surgery. The left leg pain he had before surgery is completely gone. The pain is aggravated with standing walking but can also bother him at night or if he sitting for too long. Standing is also very bothersome as well. He works at an [employer] so that can be difficult at times. He is not doing any heavy lifting. On my exam, he does appear uncomfortable standing and he winces a little bit. His strength is full, reflexes normal at the patella but absent bilaterally at the Achilles. His wound is healed up beautifully. At this point I told him that I am not sure what is going on, but that it could be nerve irritation. It is unlikely his insurance company will approve an MRI without 6 weeks of physical therapy, so I told him that we would have a few ways to deal with this. One way is to just give it some more time and see if it goes away. Second option is to start physical therapy in anticipation of needing the MRI down the road. He really has not had much benefit from physical therapy in the past and does not want to start going as usually just makes him feel worse. This is reasonable. So he will try to wait this out as long as he can and if it gets worse he will call me back and let me know how he would like to proceed. This visit was done with the assistance of an vacuum drum drier operator Guyanese sign language [phone]. Mark Martinez MD, PhD [facility] Coding Level of Care Code Global (03701) Diagnoses Lumbar disc herniation M51.26
--- OUTSIDE RECORDS SUMMARY | 2024-11-06 16:25 | XMS_ITS | Encounter Summary ---
Author Organization [employer] Address [address] [place] [address] Care Team Providers Care Typewriter Mechanic Name Role Phone Stan Fletcher MD Primary Care Provider [phone] Reason for Referral * Consultation (Routine) - Authorized Specialty Diagnoses / Procedures Referred By Contivan t Referred To Contact Pharmacy Diagnoses Type 2 diabetes mellitus without complication, with long-term current use of insulin (CMS/HCC) Stan Fletcher MD [address] [place] [address] Phone: tel: fax: Referral ID Status Reason Start Date Expiration Date Visits Requested Visits Authorized [id number] Authorized Consult and Treat 11/05/2024 11/05/2025 6 6 Reason for Visit * Reason Comments Leg Pain Encounter Details Date Type Department Care Team (Latest Contact Info) Description 11/05/2024 9:15 AM EDT Office Visit [facility]EDS [address] [place], [place] [phone] Stan Fletcher MD [address] [place], [place] [phone] Type 2 diabetes mellitus without complication, with long-term current use of insulin (CMS/HCC) (Primary Dx); Herniation of intervertebral disc between L4 and L5; Primary hypertension; Dietary counseling; Exercise counseling; Class 1 obesity due to excess calories with serious comorbidity and body mass index (BMI) of 30.0 to 30.9 in adult Social History Tobacco Use Types Packs/Day Years Used Date Smoking Tobacco: Never Smokeless Tobacco: Never Depression Answer Date Recorded Patient Health Questionnaire-9 Score 0 11/05/2024 Patient Health Questionnaire-9 Score 0 11/05/2024 Last PHQ-9: Questionnaire Data Not on file 0 11/05/2024 Housing Stability Answer Date Recorded What is your housing situation today? I have brian pinzon 11/05/[address] you li ve. Do you have problems with any of the following? None of the above 11/05/2024 Food Insecurity Answer Date Recorded Within the past 12 months, y ou worried that your food would run out before you got money to buy more: Never True 11/05/2024 Within the past 12 months,th e food you bought just didn't last and you didn't have enough money to get more: Never True Transportation Answer Date Recorded In the past 12 months, has l ack of transportation kept you from medical appts, meetings, work or from getting things needed for daily living? No 11/05/2024 Utilities Answer Date Recorded In the past 12 months, has t he electric, gas, oil or water company threatened to shut off services in your home? No 11/05/2024 Depression Answer Date Recorded Patient Health Questionnaire-2 Score 0 11/05/2024 Internet Access Answer Date Recorded Internet Access Q1 Yes 11/05/2024 Internet Access Q2 Not on file 11/05/2024 Sex and Gender Information Value Date Recorded Sex Assigned at Male 06/19/2022 10:21 AM EDT Legal Sex Male 10:21 AM EDT Gender Identity Male 06/19/2022 10:21 AM EDT Sexual Orientation Don't know 06/19/2022 10 :21 AM EDT documented as of this encounter Last Filed Vital Signs Vital Sign Reading Time Taken Comments Blood Pressure 164/80 11/05/2024 9:28 AM EDT Pulse 68 11/05/2024 9:28 AM EDT Temperature 36.6 ??C (97.9 ??F) 11/05/2024 9:28 AM ED T Respiratory Rate 20 11/05/2024 9:28 AM EDT Oxygen Saturation 98% 11/05/2024 9:28 AM EDT Inhaled Oxygen Concentration - - Weight 90.2 kg (198 lb 12.8 oz) 11/05/2024 9:28 AM EDT Height 173 cm (5' 8.11 ) 11/05/2024 9:28 AM EDT Body Mass Index 30.13 11/05/2024 9:28 AM EDT documented in this encounter Progress Notes * Stan Fletcher MD - 11/05/2024 9:15 AM EDT Subjective Patient ID: Nick Escobar is a 64 y.o. male who presents for Leg Pain. Leg Pain spanish interpreter Nancy #[id number] Patient is status post L5-S1 microdiscectomy beginning of August 2024. He was complaining of bilateral lower limb pain which has resolved for sometimes. He reports a recurrence about 3 weeks ago. The pain is described as a burning sensation which interferes sometimes with sleep. Currently on gabapentin 300 mg 3 times a day which provides partial relief of the pain. He has a scheduled follow-up appointment with his surgeon tomorrow. History of diabetes. Patient is interested in getting a different CGM. He tried freestyle which caused an allergic reaction to the site of insertion of the sensor. History of high blood pressure. He is compliant to his medication. Denies any headache or blurry vision today. Patient Active Problem List Diagnosis Allergic rhinitis Bilateral deafness Chest pain Diabetes mellitus (CMS/HCC) Hypertensive disorder Palpitations Pure hypercholesterolemia Right inguinal hernia Herniation of intervertebral disc between L4 and L5 Anterolisthesis Drug-induced constipation Acute cough Nonspeaking deaf Current Outpatient Medications on File Prior to [...] (one) time each day. Continuous Blood Gluc Concert Pianist (FreeStyle Cathryn 2 [place]) device To use daily 1 each 0 Continuous Blood Gluc Sensor (FreeStyle Cathryn 2 Sensor) misc To use daily 2 each 11 Continuous Glucose Concert Pianist (FreeStyle Cathryn 2 [place]) device Scan sensor every 8 hours 1 each 0 Continuous Glucose Sensor (FreeStyle Cathryn 2 Sensor) [facility] [place] 1 sensor every 14 days 2 [...] ONE TABLET EVERY MORNING 30 tablet 5 melatonin 5 MG tablet One tab once [...] bedtime forconstipation. 60 tablet 0 TechLite Pen [place] 32G X 6 MM misc USE FOUR TIMES DAILY] 100 each 11 tiZANidine (Zanaflex) 4 MG tablet TAKE ONE TABLET EVERY 6 TO 8 HOURS NEEDED. NO MORE THAN THREE TABLETS PER 24 HOURS 60 tablet 1 triamcinolone (Kenalog) 0.5 % ointment APPLY SPARINGLY TO THE AFFECTED AREA(S) TWICE DAILY 30 g 0 [DISCONTINUED] losartan (Cozaar) 50 MG tablet TAKE ONE TABLET EVERY MORNING 30 tablet 11 No current facility-administered medications on file prior to visit. Allergies Allergen Reactions Denture Adhesive Rash Bee Pollen Hives Simvastatin Hives Sulfa Antibiotics Hives Review of Systems Constitutional: Negative for appetite change, chills and diaphoresis. Respiratory: Negative for cough, choking and shortness of breath. Cardiovascular: Negative for leg swelling. Gastrointestinal: Negative for abdominal pain, anal bleeding and blood in stool. Musculoskeletal: Positive for back pain. Objective BP (!) 164/80 (BP Location: Right arm, Patient Position: Sitting, BP Cuff Size: Large adult) Pulse 68 Temp 97.9 ??F (36.6 ??C) (Oral) Resp 20 Ht 5' 8.11 (1.73 m) Wt 198 lb 12.8 oz (90.2 kg) SpO2 98% BMI 30.13 kg/m?? Physical Exam Constitutional: General: He is not in acute distress. Appearance: Normal appearance. He is obese. He is not ill-appearing, toxic- appearing or diaphoretic. Cardiovascular: Rate and Rhythm: Normal rate. Heart sounds: No murmur heard. Pulmonary: Effort: Pulmonary effort is normal. No respiratory distress. Breath sounds: No stridor. No wheezing or rhonchi. Neurological: General: No focal deficit present. Mental Status: He is alert. Assessment/Plan Diagnoses and all orders for this visit: Type 2 diabetes mellitus without complication, with long-term current use of insulin ([facility]) Comments: Stable Will greatly benefit from a different CGM. Referred to our clinical pharmacist Orders: - Referral to Pharmacy CDTM - Albumin, Random Urine W/Creatinine; Future Herniation of intervertebral disc between L4 and L5 Comments: Increase gabapentin dose to 400 mg 3 times a day Follow-up with pain management as scheduled. Continue with methocarbamol Orders: - gabapentin (Neurontin) 400 MG capsule; Take 1 capsule (400 mg) by mouth 3 times daily. Primary hypertension Comments: Increase losartan to 100 mg daily Continue with rest of medication DASH diet. Orders: - losartan (Cozaar) 100 MG tablet; Take 1 tablet (100 mg) by mouth Once per day. Dietary counseling Exercise counseling Class 1 obesity due to excess calories with serious comorbidity and body mass index (BMI) of 30.0 to 30.9 in adult Dietary Recommendations: Fruits, vegetables, whole grains, protein foods, and fat-free or low-fat dairy products are healthychoices. Eat different types of protein foods in your diet. This can include seafood, lean meats, poultry, beans, peas, lentils, nuts, seeds, soy products, and eggs. Limit foods and beverages higher in added sugars, saturated fat, and sodium. Exercise Recommendations: At least 150 minutes of moderate-intensity physical activity per week, or an equivalent combinationof moderate- and vigorous-intensity activity documented in this encounter Plan of Treatment Upcoming Encounters Date Type Department Care Team (Late st Contact Info) Description 11/12/2024 10:45 AM EDT Office Visit [facility] [address] [place] [address] Stan Fletcher MD [address] [facility] [place] [address] 02/10/2025 10:00 AM EDT Office Visit [facility] [address] [facility] [place] [address] Stan Fletcher MD [address] [facility] [place] [address] Scheduled Referrals Name Type Priority Associated Diagnoses Orde r Schedule Referral to Pharmacy CDTM Outpatient Referral Routine Type 2 diabetes mellitus without complication, with long-term current use of insulin ([facility]) Ordered: 11/05/2024 documented as of this encounter Procedures Procedure Name Priority Date/Time Associated Diagnosis Comments ALBUMIN, RANDOM URINE W/CREATININE Routine 11/05/2024 10:17 AM EDT Type 2 diabetes mellitus without complication, with long-term current use of insulin ([facility]) documented in this encounter Results * Albumin, Random Urine W/Creatinine (11/05/2024 10:17 AM EDT) Creatinine, Urine 98.24 mg/dL [facility] Microalbumin Urine 20.0 mg/L [facility] Microalbum Creatinine Ratio Ur 20.3 <30 ug/mg cr [facility] Comment:Albumin/Creatinine R atio Reference Ranges: Normal: < 30 ug/mg creatinine Microalbuminuria: 30 - 300 ug/mg creatinineClinical Albuminuria: > 300 ug/mg creatinine Urine (Urine, Random) 11/05/2024 10:17 AM EDT 11/05/2024 2:07 PM EDT us Stan Fletcher MD LAB URINE ORDERABLES Final Result [facility] [address] [place] [address] [phone] documented in this encounter Visit Diagnoses Diagnosis Type 2 diabetes mellitus without complication, with long-term current use of insulin ([facility])- Primary Herniation of intervertebral disc between L4 and L5 Primary hypertension Unspecified essential hypertension Dietary counseling Dietary surveillance and counseling Exercise counseling Class 1 obesity due to excess calories with serious comorbidity and body mass index (BMI) of 30.0 to 30.9 in adult documented in this encounter Additional Health Concerns Assessment Noted Time PHQ-9 Depression Total Score: 0 11/06/19 25 9:29 AM EDT documented as of this encounter Care Teams Typewriter Mechanic Relationship Specialty Start Date End Date Stan Fletcher MD [address] [place] [id number] PCP - General Internal Medicine 08/20/18 documented as of this encounter
--- OUTSIDE RECORDS SUMMARY | 2024-11-06 16:25 | XMS_ITS | Encounter Summary ---
Author Organization [employer] Address [address] [facility] [address], [place] [address] Care Team Providers Care Lace Sewer Name Role Phone Stan Fletcher MD Primary Care Provider [phone] Reason for Visit * Reason Onset Date Comments Med Refill 11/05/2023 Encounter Details Date Type Department Care Team ([facility] Contact Info) Description 11/05/2023 Telephone [facility] [address] [place] [address] Stan Fletcher MD [address] [place], [place] [phone] Med Refill Social History Tobacco Use Types [...] 1:59 PM EDT Tc from [facility] requesting scripts for Continuous Blood Gluc Bracelet And Brooch Maker (FreeStyle Acthryn 2 [place]) device ,Continuous Blood Gluc Sensor (FreeStyle Cathryn 2 Sensor) misc and Precision Anjel Test Stripsit can be Faxed to [phone] documented in this encounter Plan of Treatment Upcoming Encounters Date Type Department Care Team (Late st Contact Info) Description 11/12/2024 10:45 AM EDT Office Visit [facility] MED & PEDS [address] [place] [address] Stan Fletcher MD [address] [place] [address] 02/10/2025 10:00 AM EDT Office Visit [facility] PEDS [address] [place] [address] Stan Fletcher MD [address] [place] [address] documented as of this encounter Visit Diagnoses Not on filedocumented in this encounter Care Teams Lace Sewer Relationship Specialty Start Date End Date Stan Fletcher MD [address] [place] [address] PCP - General Internal Medicine 08/20/18 documented as of this encounter
--- OUTSIDE RECORDS SUMMARY | 2024-11-06 16:26 | XMS_ITS | Encounter Summary ---
Author Organization [employer] Address [address] [facility] [address], [place] [address] Care Team Providers Care Moisture Conditioner Operator Name Role Phone Stan Fletcher MD Primary Care Provider [phone] Reason for Visit * Reason Onset Date Comments Nurse Triage 11/04/2024 Encounter Details Date Type Department Care Team ([facility] Contact Info) Description 11/04/2024 Telephone [facility] MED[facility]INE [address] [place] [address] Stan Fletcher MD [address] [place], [place] [phone] Nurse Triage Social History Tobacco Use Types [...] Telephone Encounter - Vivi Salazar RN - 11/04/2024 9:01 AM EDT Called pt. Via [employer] [id number] . Pt. States that he is having soreness in both legs. Pt. States it feels like cramping. Pt. States it helps when he has a banana it sometimes helps the pain but, when pt. Stands for too long at work his legs start to cramp up. Pt. States he is taking Januvia 100mg pills for a while but his blood sugar gets low mid morning and he has to eat snacks to get regulat ed with his sugars again. Pt. States he feels like he is allergic to the patch that he use on his arm to check his blood sugars as it irritates his skin even though he tries to move it around. Pt. Wants to see PCP to discuss concerns and get possible blood work. Protocol Used: Leg Pain (Adult) Protocol-Based Disposition: See in Office or Video Visit within 3 Days-appt. 11/05/24 at 915am in [facility] with PCP. Video visit offer not recorded Positive Triage Questions: * Moderate pain (e.g., interferes with normal activities, limping) and present > 3 days * Leg pain or muscle cramp is a chronic symptom (recurrent or ongoing AND lasting > 4 weeks) * All higher-acuity triage questions were negative * Telephone Encounter - Pamela Harper Mendez - 11/04/2024 8:53 AM EDT Symptoms: Medication Reaction, Leg Pain (cramps) - Not From Injury Outcome: Schedule an urgent appointment (within 1 hour) or talk to a nurse or provider soon Reason: Caller denied all higher acuity questions The caller accepted this outcome. [phone] (Sign Language) Medication: Insulin Lispro (HumaLOG) 100 UNIT/ML solution documented in this encounter Plan of Treatment Upcoming Encounters Date Type Department Care Team (Late st Contact Info) Description 11/12/2024 10:45 AM EDT Office Visit [facility] MED & PEDS [address] [place] [address] Stan Fletcher MD [address] [place] [address] 02/10/2025 10:00 AM EDT Office Visit [facility] MED & PEDS [address] [place] [address] Stan Fletcher MD [address] [place] [address] documented as of this encounter Visit Diagnoses Not on filedocumented in this encounter Additional Health Concerns Assessment Noted Time PHQ-9 Depression Total Score: 5 11/08/19 24 2:49 PM EDT documented as of this encounter Care Teams Moisture Conditioner Operator Relationship Specialty Start Date End Date Stan Fletcher MD [address] [place] [address] PCP - General Internal Medicine 08/20/18 documented as of this encounter
--- OUTSIDE RECORDS SUMMARY | 2024-11-06 16:26 | XMS_ITS | Encounter Summary ---
Author Organization [employer] Address [address] [place] [address] Care Team Providers Care Cabin Furnishings Installer Name Role Phone Stan Fletcher MD Primary Care Provider [phone] Reason for Visit * Reason Comments Med Refill Encounter Details Date Type Department Care Team ([facility] Contact Info) Description 08/29/2022 Refill [facility] [address] [place] [address] Stan Fletcher MD [address] [place] [address] Chronic pain syndrome Social History Tobacco Use [...] Upcoming Encounters Date Type Department Care Team ([facility] Contact Info) Description 11/12/2024 10:45 AM EDT Office Visit [facility] [address] [place] [address] Stan Fletcher MD [address] [place] [address] 02/10/2025 10:00 AM EDT Office Visit [facility] [address] [place] [address] Stan Fletcher MD [address] [place] [address] documented as of this encounter Visit Diagnoses Diagnosis Chronic pain syndrome documented in this encounter Care Teams Cabin Furnishings Installer Relationship Specialty Start Date End Date Stan Fletcher MD [address] [facility] [place] [address] PCP - General Internal Medicine 08/20/18 documented as of this encounter
--- OUTSIDE RECORDS SUMMARY | 2024-11-06 16:26 | XMS_ITS | Encounter Summary ---
Author Organization [employer] Address [address] [place] [address] Care Team Providers Care Health And Safety Consultant Name Role Phone Stan Fletcher MD Primary Care Provider [phone] Encounter Details Date Type Department Care Team ([facility] Contact Info) Description 06/27/2023 Orders Only [facility]EDS [address] [place] [address] Stan Fletcher MD [address] [place] [address] Acute pain of left shoulder (Primary Dx) [...] Description 11/12/2024 10:45 AM EDT Office Visit [facility] [address] [place] [address] Stan Fletcher MD [address] [place] [address] 02/10/2025 10:00 AM EDT Office Visit [facility] MED & PEDS [address] [place] [address] Stan Fletcher MD [address] [place] [address] documented as of this encounter Visit Diagnoses Diagnosis Acute pain of left shoulder- Primary documented in this encounter Care Teams Health And Safety Consultant Relationship Specialty Start Date End Date Stan Fletcher MD [address] [place] [address] PCP - General Internal Medicine 08/20/18 documented as of this encounter
--- OUTSIDE RECORDS SUMMARY | 2024-11-06 16:26 | XMS_ITS | Clinical Summary ---
Author Organization [employer] Address [address] [place] [address] 7 [place] [address] Care Team Providers Care Supervisor Respiratory Name Role Phone Stan Fletcher MD Primary Care Provider [phone] Allergies Active Allergy Reactions Criticality Noted Date [...] mL 11 2022 Active Continuous Blood Gluc Associate Partner (FreeStyle Cathryn 2 Henderson) deviceIndications:Type 2 diabetes mellitus without complication, with long-term current use of insulin ([facility]) To use daily 1 each 2022 Active Continuous Blood Gluc Sensor (FreeStyle Cathryn 2 Sensor) miscIndications:Type 2 diabetes mellitus without complication, with long-term current use of insulin ([facility]) To use daily 2 each 11 2022 [...] hyperglycemia, with long-term current use of insulin ([facility]) INJECT 12 UNITS SUBCUTANEOUSLY THREE TIMES DAILY [...] complication, with long-term current use of insulin ([facility]) Inject 12 Units as directed 3 times daily. 10 mL 11 2023 Active Januvia 100 MG tablet TAKE ONE TABLET BY MOUTH EVERY DAY 90 tablet 3 2023 Active DULoxetine (Cymbalta) [address] capsuleIndications:Her niation of intervertebral disc between L4 and L5 Take 1 capsule (20 mg) by mouth 2 times daily. Do not crush or chew. 60 capsule 03/31 Active Continuous Glucose Associate Partner (FreeStyle Cathryn 2 Henderson) deviceIndications:Type 2 diabetes mellitus without complication, with long-term current use of insulin ([facility]) Scan sensor every 8 hours 1 each 2023 Active Continuous Glucose Sensor (FreeStyle Cathryn 2 Sensor) miscIndications:Type 2 diabetes mellitus without complication, with long-term current use of insulin ([facility]) Apply 1 sensor every 14 days 2 each 2023 Active glucose blood (FreeStyle Precision Anjel Test) test stripIndications:Type 2 diabetes mellitus without complication, with long-term current use of insulin ([facility]) Use to test blood sugar 4 times [...] BEFORE MEALS 180 tablet 3 2023 Active Lantus SoloStar 100 UNIT/ML pen INJECT 60 UNITS SUBCUTANEOUSLY ONCE DAILY 30 mL 11 2023 Active TechLite Pen [place] 32G X 6 MM [facility] USE FOUR TIMES DAILY] 100 each 11 [...] FOR SEVERE PAIN 15 tablet 2024 Active gabapentin (Neurontin) 400 MG capsuleIndications: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 90 capsule 11 11/05 Active losartan (Cozaar) 100 MG tabletIndications:Prim janeth hypertension Take 1 tablet (100 mg) by mouth Once per day. 30 tablet 11 11/05 Active losartan (Cozaar) 50 MG tabletIndications:Prim janeth hypertension TAKE ONE TABLET EVERY MORNING 30 tablet 11 11/05 Discontinued Active Problems Problem Noted Date Diagnosed [...] Encounters Date Type Department Care Team Description 11/05/2024 9:15 AM EDT Office Visit [facility] [address] [place] [address] Stan Fletcher MD Type 2 diabetes mellitus without complication, with long-term current use of insulin ([facility]) (Primary Dx); Herniation of intervertebral disc between L4 and L5; Primary hypertension; Dietary counseling; Exercise counseling; Class 1 obesity due to excess calories with serious comorbidity and body mass index (BMI) of 30.0 to 30.9 in adult 11/05/2024 Travel 11/04/2024 Telephone [facility] [address] [place] [phone] Stan Fletcher MD Nurse Triage 09/30/2024 Telephone [facility] [address] [place] [address] Stan Fletcher MD Call Back Request 09/29/2024 Refill [facility] [address] [place] [address] Stan Fletcher MD Acute pain of left shoulder 09/21/2024 Refill [facility] [address] [place] [address] Stan Fletcher MD Right sided sciatica 09/11/2024 9:45 AM EST Office Visit [facility] [address] [place] [address] Stan Fletcher MD Herniation of intervertebral disc between L4 and L5 (Primary Dx); Anterolisthesis; Greater trochanteric bursitis of left hip; Type 2 diabetes mellitus without complication, with long-term current use of insulin ([facility]) 09/11/2024 Travel 09/04/2024 Orders Only GENERIC EXTERNAL DATA DEPARTMENT Provider, Generic External Data 08/25/2024 Orders Only GENERIC EXTERNAL DATA DEPARTMENT Provider, Generic External Data 08/25/2024 Refill [facility] [address] [place] [address] Stan Fletcher MD Acute pain of left shoulder 08/11/2024 Refill [facility] [address] [place] [address] Rosemarie Madden MD Right sided sciatica from Last 3 Months Immunizations Name Administration [...] your housing situation today? I have brian sing 11/05/[address] you li [...] Mass Index 30.13 11/05/2024 9:28 AM EDT Plan of Treatment Upcoming Encounters Date Type Department Care Team (Late st Contact Info) Description 11/12/2024 10:45 AM EDT Office Visit [facility] [address] [place] [address] Stan Fletcher MD [address] [place] [address] 02/10/2025 10:00 AM EDT Office Visit [facility] [address] [place] [address] Stan Fletcher MD [address] [place] [address] Health Maintenance Due Date Last Done Comments CT Colonography 1960 Colonoscopy 1960 FIT 1960 FOBT 1960 Lipid Panel 1960 Sigmoidoscopy 1960 Hepatitis C Screening 1980 COVID-19 Vaccine ( season) 2024 08/23/2023, 06/10/2022, 07/18/2021, Additional history exists Eye Exam 10/20/2024 10/20/2022 Diabetes: Hemoglobin A1C 12/10/2024 025, 08/25/2024, 03/31/2024, Additional history exists Diabetes: Foot Exam 03/31/2025 03/31/2024 Tobacco Screening 05/05/2025 05/05/2024 DTaP/Tdap/Td Vaccines (2 - Td or Tdap) 10/19/2025 10/20/2015 Alcohol/Substance Use Screening 11/05/2025 11/05/2024 Depression Screening 11/05/2025 11/05/2024, 11/06/19 25 Diabetes: Urine Protein Screening 11/05/2025 11/05/2024 SDOH Screening 11/05/2025 11/05/2024 Colorectal Cancer Screening 12/05/2026 FIT DNA/Cologuard 12/05/2026 [...] complication, with long-term current use of insulin ([facility]) POCT GLYCATED HEMOGLOBIN, TOTAL Routine 09/11/2024 10:40 AM EST Type 2 diabetes mellitus without complication, with long-term current use of insulin ([facility]) POCT GLUCOSE Routine 09/11/2024 10:39 AM EST Type 2 diabetes mellitus without complication, with long-term current use of insulin ([facility]) FL GUIDANCE IN OR Routine 09/04/2024 1:0 [...] Recently Relevant to Health Maintenance Results * Albumin, Random Urine W/Creatinine (11/05/2024 10:17 AM EDT) Creatinine, Urine 98.24 mg/dL [facility] Microalbumin Urine 20.0 mg/L [facility] Microalbum Creatinine Ratio Ur 20.3 <30 ug/mg cr [facility] Comment:Albumin/Creatinine R atio Reference Ranges: Normal: < 30 ug/mg creatinine Microalbuminuria: 30 - 300 ug/mg creatinineClinical Albuminuria: > 300 ug/mg creatinine Urine (Urine, Random) 11/05/2024 10:17 AM EDT 11/05/2024 2:07 PM EDT us Stan Fletcher MD LAB URINE ORDERABLES Final Result Performing Organization Address City/State/[facility] Co de Phone Number [facility] [address] [place] [phone] * (ABNORMAL) POCT HGB A1C (09/11/2024 10:40 AM EST) Hemoglobin A1C 8.0(A) 4.0 - 6.0 % QC Media Lot # [id number] Lot# Expiration Date [id number] Blood 09/11/2024 10:4 0 AM EST us Stan Fletcher MD POINT [...] EST Narrative 09/05/2024 2:02 PM EST ? [facility] ?[address] ?[place] [address] ? Fluoroscopy Report ? Signed ? Patient: Shawn,Nick ?MR#: [id number] ?? [id number] ? : 1960 ?Acct:[id number] ? Age/Sex: 63 / M ?ADM Date: 09/04/24 ? Loc: HO.SSS ? Attending Dr: Antwan Martinez MD, PhD ? Ordering Physician: Antwan Martinez MD, PhD ?? Date of Service: 09/04/24 ?? Procedure(s): FL guidance in OR ?? Accession Number(s): [id number] ? cc: Stna Fletcher MD; Antwan Martinez MD, PhD ? [...] DD/ 1305 ? TD/TT: 09/04/24 1345 ? Hand Spring Repairer Helper: ? Procedure Note Donotuseinterpreter, Image - 09/05/[address] [address] Fluoroscopy Report Signed Patient: May Escobar#: [id number] : 1960Acct:[id number] Age/Sex: 63 / MADM Date: 09/04/24 Loc: HO.SSS Attending Dr: Antwan Martinez MD, PhD Ordering Physician: Antwan Martinez MD, PhD Date of Service: 09/04/24 Procedure(s): FL guidance in OR Accession Number(s): [id number] cc: Stan Fletcher MD; Antwan Martinez MD, [...] 09/05/24 1359 DD/ 1305 TD/TT: 09/04/24 1345 Hand Spring Repairer Helper: [facility] External Provider IMG IR PROCEDURES Edited Result - Final * (ABNORMAL) Glucose, Whole Blood (09/04/2024 12:42 PM EST) Glucose, Whole Blood 198(H) 60 - 115 mg/dL [facility] Comment:METER #: [id number] 09/04/2024 12:4 2 PM EST 09/04/2024 12:45 PM EST us Generic External Data Provider LAB BLOOD ORDERAB LES Final Result Performing Organization Address City/[facility] Co de Phone Number [facility] [address] [place] [phone] * (ABNORMAL) CBC (08/25/2024 11:15 AM EST) [facility] White Blood Count 5.5 4.8 - 10.8 X10*3/uL [facility] Red Blood Count 4.24(L) 4.60 - 5.80 X10*6/uL [facility] Hemoglobin 13.7(L) 14.0 - 18.0 g/dl [facility] Hematocrit 39.6(L) 42.0 - 52.0 % [facility] Mean Corpuscular Volume 93.4 80.0 - 98.0 fL [facility] Mean Corpuscular Hemoglobin 32.3 27.0 - 33.0 pg [facility] Mean Corpuscular HGB Conc 34.6 31.0 - 36.0 g/dl [facility] Red Cell Distribution Width 12.5 11.0 - 16.0 % [facility] Platelet Count 174 160 - 400 X10*3/uL [facility] Mean Platelet Volume 10.0 9.4 - 12.4 fL [facility] NRBC Pct Auto 0.0 0.0 - 0.2 /100WBC [facility] NRBC Abs Auto 0.000 0.0 - 0.012 X10*3/uL [facility] 08/25/2024 11:1 5 AM EST 08/25/2024 11:15 AM EST us Generic External Data Provider LAB BLOOD ORDERAB LES Final Result Performing Organization Address [facility] Co de Phone Number [facility] [address] [place] [phone] * (ABNORMAL) Hemoglobin A1c (08/25/2024 11:15 AM EST) Hemoglobin A1c 8.2(H) <6.0 % [facility] Comment:Hemoglobin A1C Refer ence Range Adults: 4.8 - 6.0 % Non diabetic: < 6.0 % Goal: < 7.0 %Additional Action Suggested: > 8.0 %Note: Hemoglobin A1c results are invalid for patients with abnormal amounts of HbF. Blood transfusions may impact the HbA1c concentration in the patient sample. Estimated Average Glucose 189 mg/dL [facility] Comment:eAG = Estimated ave rage glucose which is %A1C expressed asaverage glucose, using the formula of the V3A-HmwqqpqQzinkmv Glucose study (ADAG), Diabetes Care, Vol.31,#8,Mar. 2007 08/25/2024 11:1 5 AM EST 08/25/2024 11:15 AM EST us Generic External Data Provider LAB BLOOD ORDERAB LES Final Result Performing Organization Address [facility] de Phone Number [facility] [address] [place] [phone] * (ABNORMAL) Basic Metabolic Panel (08/25/2024 11:15 AM EST) Sodium 141 135 - 145 mmol/L [facility] Potassium 4.1 3.3 - 5.1 mmol/L [facility] Chloride 107 96 - 108 mmol/L [facility] Carbon Dioxide 27 22 - 29 mmol/L [facility] Anion Gap 11(L) 12 - 20 [facility] Urea Nitrogen (BUN) 21(H) 9 - 16 mg/dL [facility] Creatinine, Serum 1.22 0.5 - 1.4 mg/dL [facility] Creatinine Clr Calc Pharmacy 69.4 [facility] Comment:eGFR (calculated fro m the MDRD study equation) and eCrCl(calculated from the Cockcroft-Gault equation) are based ondifferent parameters and may not yield comparable results.If eCrCl result is absurd, please check patient'sheight/weight. Estimated Glomerular Filt Rate >60 [facility] Comment:Chronic Kidney Disea se: Estimated GFR < 60 mL/min/1.60z7Setven Kidney Disease: Estimated GFR < 15 mL/min/1.73m2 Glucose 144(H) 60 - 115 mg/dL [facility] Calcium 9.5 8.4 - 10.2 mg/dL [facility] 08/25/2024 11:1 5 AM EST 08/25/2024 11:15 AM EST us Generic External Data Provider LAB BLOOD ORDERAB LES Final Result [facility] [address] [place] [phone] * (ABNORMAL) Cologuard?? colon cancer screening (12/06/2023 7:58 AM EDT) Cologuard Result Positive( A) Negative 12/13/2023 5:48 PM EDT [facility] (CLIA #:[id number]) Comment: POSITIVE TEST RESULT. A positive Cologuard [...] screened with both Cologuard and colonoscopy. (Saritha Aguilar et al, N Engl J Med 2014;370(14):5559-3641.) Cologuard may produce a false negative or false positive result (no colorectal cancer or precancerous polyp present at colonoscopy follow up). A negative Cologuard test result does not guarantee the absence of CRC or advanced adenoma (pre-cancer). The current Cologuard screening interval is every 3 years. ([employer] Society and U.S. Multi-Society Task Force). Cologuard performance data in a 10,000 patient pivotal study using colonoscopy as the reference method can be accessed at the following location: www.Storspeed/results. Additional description of the Cologuard test process, warnings and precautions can be found at www.cologuard.com. Stool specimen (specimen) Rectal contents / Unknown 12/06/2023 7:58 AM EDT 12/07/2023 10:55 AM EDT Stan Fletcher MD LAB MOLECULAR DIAGNOSTICS O RDERABLES Final Result [facility] (CLIA #:[id number]) [address] [place] [address], from Last 3 Months or Most Recently Relevant to Health Maintenance Insurance [facility] MEDICARE ADVANTAGE HMO Care Teams Supervisor Respiratory Relationship Specialty Start Date End Date Stan Fletcher MD [address] [place] [address] PCP - General Internal Medicine 08/20/18
--- OUTSIDE RECORDS SUMMARY | 2024-11-06 16:26 | XMS_ITS | Data Portability ---
Author Organization [employer] [facility], [place] [employer] Address [address] [place] [phone] Care Team Providers Care Industrial Illuminating Engineer Name Role Phone [facility] Referring Provider Assessment No assessment recorded. Plan of Treatment Reminders Order Date Submit Date Provider Last Modified By Organization Details Last Modified Time Details Appointments None recorded. Lab None recorded. Referral None recorded. Procedures None recorded. Surgeries None recorded. Imaging None recorded. Medication Orders azithromyci n 250 mg tablet 2022 [id number], [address] [place], [address], 10:33:17 Flovent HFA 44 mcg/actuati on aerosol inhaler 2022 023 [facility][id number], [address] [place], [address], 10:33:17 Patient TargetsNo targets recorded. Patient InstructionsNo [...] SNOMED-CT Code Diagnosis ICD10 Code Diagnosis Note [id number] Kiana Rojas MD Main - [facility] [address] [place] [phone] 05/23/2023 10:14:23 05/24/2023 00:31:53 Cough [id number] R05.9 I provided real -time medical direction via phone for this encounter, and was available for additional phone based assistance as needed. I have reviewed and agree with the Assessment and Plan as documented by the Telegraph Installer. Patient given the opportunit y to ask [...] Liang Member ID Guarantor Name 05/23/[address] [facility] - DOS ON OR AFTER 2022 - DUAL ELIGIBLE - RESIDENTIAL OPTIONS AND ONE CARE (MEDICARE REPLACEMENT/AD VANTAGE - HMO) Nick Escobar [id number] Nick Escobar Notes Date Note Type Note [...] Advised no further Prednisone until evaluated by [facility] graduation coach. ................... ................... ................... ................... ................... ................... ................... ........ CRC Nursing Assessment: Comments: Reviewed = Deuce VASQUES ................... ................... ................... ................... ................... ................... ................... ........ Telegraph Installer Note From Isaiah Green: Pt reports that [...] ........ Disposition: Fulfilled Kiana Rojas MD [address] [facility],[address], [place], [phone], [place] 05/23/2023 23:34:00
--- OUTSIDE RECORDS SUMMARY | 2024-11-06 16:26 | XMS_ITS | Encounter Summary ---
Author Organization [employer] [facility] Address [address] [place] [phone] Care Team Providers Care Last Greaser Name Role Phone Stan Fletcher MD Primary Care Provider [phone] Reason for Visit * Reason Comments Med Refill Encounter Details Date Type Department Care Team ([facility] Contact Info) Description 03/20/2023 Refill [facility] [address] [place] [address] Stan Fletcher MD [address] [place] [address] Type 2 diabetes mellitus with hyperglycemia, with long-term current use of insulin ([facility]) Social History Tobacco Use Types Packs/Day Years [...] Upcoming Encounters Date Type Department Care Team ([facility] Contact Info) Description 11/12/2024 10:45 AM EDT Office Visit [facility] [address] [place] [address] Stan Fletcher MD [address] [place] [address] 02/10/2025 10:00 AM EDT Office Visit [facility] [address] [place] [address] Stan Fletcher MD [address] [place] [address] documented as of this encounter Visit Diagnoses Diagnosis Type 2 diabetes mellitus with hyperglycemia, with long-term current use of insulin ([facility]) documented in this encounter Care Teams Last Greaser Relationship Specialty Start Date End Date Stan Fletcher MD [address] [place] [address] PCP - General Internal Medicine 08/20/18 documented as of this encounter
--- OUTSIDE RECORDS SUMMARY | 2024-11-06 16:26 | XMS_ITS | Encounter Summary ---
Author Organization [employer] Address [address] [place] [phone] Care Team Providers Care Food General Manager Name Role Phone Stan Fletcher MD Primary Care Provider [phone] Reason for Referral * Consultation (Routine) - Pending Review Specialty Diagnoses / Procedures Referred By Contivan t Referred To Contact Gastroenterology Diagnoses Positive colorectal cancer screening using Cologuard test Stan Fletcher MD [address] [place] [address] Phone: tel: fax: Neli Jaeger MD [address] [place] [phone] Phone: tel: fax: Referral ID Status Reason Start Date Expiration Date Visits Requested Visits Authorized [id number] Pending Review Specialty Services Required 12/14/2023 12/13/2024 1 1 Encounter Details Date Type Department Care Team ([facility] Contact Info) Description 12/14/2023 Orders Only [facility] [address] [place], [place] [phone] Stan Fletcher MD [address] [place] [address] Positive colorectal cancer screening using Cologuard test [...] Description 11/12/2024 10:45 AM EDT Office Visit [facility] [address] [place] [address] Stan Fletcher MD [address] [place] [address] 02/10/2025 10:00 AM EDT Office Visit [facility] [address] [place] [address] Stan Fletcher MD [address] [place] [address] Scheduled Referrals Name Type Priority Associated Diagnoses [...] documented as of this encounter Care Teams Food General Manager Relationship Specialty Start Date End Date Stan Fletcher MD [address] [place] [address] PCP - General Internal Medicine 08/20/18 documented as of this encounter
--- OUTSIDE RECORDS SUMMARY | 2024-11-06 16:26 | XMS_ITS | Encounter Summary ---
Author Organization [employer] Address [address] [facility] [address] [place] [address] Care Team Providers Care Oil Rig Driller Name Role Phone Stan Fletcher MD Primary Care Provider [phone] Encounter Details Date Type Department Care Team (Latest Contact Info) Description 11/05/2024 Travel Social History Tobacco Use Types Packs/Day Years [...] Description 11/12/2024 10:45 AM EDT Office Visit [facility] [address] [place] [address] Stan Fletcher MD [address] [place] [address] 02/10/2025 10:00 AM EDT Office Visit [facility] [address] [place] [address] Stan Fletcher MD [address] [place] [address] documented as of this encounter Visit Diagnoses Not on filedocumented in this encounter Additional Health Concerns Assessment Noted Time PHQ-9 Depression Total Score: 0 11/06/19 25 9:29 AM EDT documented as of this encounter Care Teams Oil Rig Driller Relationship Specialty Start Date End Date Stan Fletcher MD [address] [place] [address] PCP - General Internal Medicine 08/20/18 documented as of this encounter
--- OUTSIDE RECORDS SUMMARY | 2024-11-06 16:26 | XMS_ITS | Encounter Summary ---
Author Organization [employer] Address [address] [place] [address] Care Team Providers Care Checker And Packer Name Role Phone Stan Fletcher MD Primary Care Provider [phone] Reason for Referral * Imaging (STAT) - Closed Specialty Diagnoses / Procedures Referred By Contac t Referred To Contact Cardiology Diagnoses Palpitations Procedures Transthoracic Echo (TTE) Complete Stan Fletcher MD [address] [place] [address] Phone: tel: fax: [facility] Referral ID Status Reason Start Date Expiration Date V isits Requested Visits Authorized [id number] Closed Perform Procedure 12/11/2022 12/11/2023 1 1 Encounter Details Date Type Department Care Team ([facility] Contact Info) Description 12/07/2022 Orders Only [facility]S [address] [place] [address] Stan Fletcher MD [address] [place] [address] Palpitations (Primary Dx) Social History Tobacco Use [...] 10:45 AM EDT Office Visit [facility] [address] [place] [address] Stan Fletcher MD [address] [place] [address] 02/10/2025 10:00 AM EDT Office Visit [facility] [address] [place] [address] Stan Fletcher MD [address] [place] [address] Scheduled Orders Name Type Priority Associated Diagnoses Order Schedule Transthoracic Echo (TTE) Complete Echocardiography STAT Palpitations Expected: 12/11/2022 (Approximate), Expires: 12/11/2024 documented as of this encounter Visit Diagnoses Diagnosis Palpitations- Primary documented in this encounter Care Teams Checker And Packer Relationship Specialty Start Date End Date Stan Fletcher MD [address] [place] [address] PCP - General Internal Medicine 08/20/18 documented as of this encounter
--- OUTSIDE RECORDS SUMMARY | 2024-11-06 16:26 | XMS_ITS | Encounter Summary ---
Author Organization [employer] Address [address] [place] [address] Care Team Providers Care Kindergarten Classroom Teacher Name Role Phone Stan Fletcher MD Primary Care Provider [phone] Reason for Visit * Reason Comments Med Refill Encounter Details Date Type Department Care Team ([facility] Contact Info) Description 01/09/2023 Refill [facility] [address] [place] [address] Stan Fletcher MD 505 [place] [address] Social History Tobacco Use Types Packs/Day Years [...] Upcoming Encounters Date Type Department Care Team ([facility] Contact Info) Description 11/12/2024 10:45 AM EDT Office Visit [facility] [address] [place] [address] Stan Fletcher MD 505 [place] [address] 02/10/2025 10:00 AM EDT Office Visit [facility] MED & PEDS [address] [place] [address] Stan Fletcher MD 505 [place] [address] documented as of this encounter Visit Diagnoses Not on filedocumented in this encounter Care Teams Kindergarten Classroom Teacher Relationship Specialty Start Date End Date Stan Fletcher MD 505 [place] [address] PCP - General Internal Medicine 08/20/18 documented as of this encounter
--- OUTSIDE RECORDS SUMMARY | 2024-11-06 16:26 | XMS_ITS | Encounter Summary ---
Author Organization [employer] Address [address] [place] [address] Care Team Providers Care Tool Setter Name Role Phone Stan Fletcher MD Primary Care Provider [phone] Reason for Visit * Reason Onset Date Comments Durable Medical Equipment 01/26/2023 Encounter Details Date Type Department Care Team ([facility] Contact Info) Description 01/26/2023 Telephone [facility] CHC MED & PEDS [address] [place], [place] [phone] Stan Fletcher MD [address] [place] [address] Durable Medical Equipment Social History Tobacco Use [...] [facility]. For clarification, please contact pt at [phone] (Sign language) documented in this encounter Plan of Treatment Upcoming Encounters Date Type Department Care Team (Late st Contact Info) Description 11/12/2024 10:45 AM EDT Office Visit [facility] MED & PEDS [address] [place] [address] Stan Fletcher MD [address] [place] [address] 02/10/2025 10:00 AM EDT Office Visit [facility] MED & PEDS [address] [place] [address] Stan Fletcher MD [address] [place] [address] documented as of this encounter Visit Diagnoses Diagnosis Type 2 diabetes mellitus without complication, with long-term current use of insulin ([facility])- Primary documented in this encounter Care Teams Tool Setter Relationship Specialty Start Date End Date Stna Fletcher MD [address] [place] [address] PCP - General Internal Medicine 08/20/18 documented as of this encounter
--- OUTSIDE RECORDS SUMMARY | 2024-11-06 16:26 | XMS_ITS | Encounter Summary ---
Author Organization [employer] Address [address] [place] [address] Care Team Providers Care Energy Control Officer Name Role Phone Stan Fletcher MD Primary Care Provider [phone] Encounter Details Date Type Department Care Team ([facility] Contact Info) Description 08/23/2023 Orders Only [facility] CHC MED & PEDS [address] [place] [address] Stan Fletcher MD 505 [place] [address] Social History Tobacco Use Types Packs/Day Years [...] Upcoming Encounters Date Type Department Care Team ([facility] Contact Info) Description 11/12/2024 10:45 AM EDT Office Visit [facility] CH[facility] MED & PEDS [address] [place] [address] Stan Fletcher MD 505 [place] [address] 02/10/2025 10:00 AM EDT Office Visit [facility] MED & PEDS [address] [place] [address] Stan Fletcher MD 505 [place] [address] documented as of this encounter Visit Diagnoses Not on filedocumented in this encounter Care Teams Energy Control Officer Relationship Specialty Start Date End Date Stan Fletcher MD 505 [place] [address] PCP - General Internal Medicine 08/20/18 documented as of this encounter
--- OUTSIDE RECORDS SUMMARY | 2024-11-06 16:26 | XMS_ITS | Encounter Summary ---
Author Organization [employer] Address [address] [place] [address] Care Team Providers Care Inspector Poising Name Role Phone Stan Fletcher MD Primary Care Provider [phone] Encounter Details Date Type Department Care Team ([facility] Contact Info) Description 08/03/2022 Telephone [facility] MED & PEDS [address] [place] [address] Stan Fletcher MD 505 [place] [address] Social History Tobacco Use Types Packs/Day Years [...] Encounters Date Type Department Care Team ([facility] Contact Info) Description 11/12/2024 10:45 AM EDT Office Visit [facility] MED & PEDS [address] [place] [address] Stan Fletcher MD 505 [place] [address] 02/10/2025 10:00 AM EDT Office Visit [facility] MED & PEDS [address] [place] [address] Stan Fletcher MD 505 [place] [address] documented as of this encounter Visit Diagnoses Not on filedocumented in this encounter Care Teams Inspector Poising Relationship Specialty Start Date End Date Stan Fletcher MD 505 [place] [address] PCP - General Internal Medicine 08/20/18 documented as of this encounter
--- OUTSIDE RECORDS SUMMARY | 2024-11-06 16:26 | XMS_ITS | Encounter Summary ---
Author Organization [employer] Address [address] [place] [address] Care Team Providers Care Fishing Accessories Maker Name Role Phone Stan Fletcher MD Primary Care Provider [phone] Reason for Visit * Reason Onset Date Comments Nurse Triage 08/23/2023 Encounter Details Date Type Department Care Team ([facility] st Contact Info) Description 08/23/2023 Telephone [facility] CHC MED & PEDS [address] [place], [place] [phone] Stan Fletcher MD 505 [place] [address] Nurse Triage Social History Tobacco Use Types [...] 3:50 PM EST Called pt. Back via stable manager #[id number]. Called pt. Asked him if he has any Covid tests at home to test himself for Covid. Pt. States he has a test at home but, he currently at Pharmacy picking up some OTC cough medicine. I will call pt. Back at 430pm to see what Covid test result is as pt. States he lives [place] minutes from [facility]. Called pt. Back via stable manager #[id number]. Pt. Took Covid test and it came out Negative. Pt. ShowedASL differential tester over video and she states that only the control line is showing and only 1 line on home Covid test. Advised pt. That per Dr. Fletcher he would like pt. To go to Walk in at [facility] tomorrow 08/23/2023 in the am to get his lungs listened to and to assess left lung congestion. Pt. States understanding and will go to walk in at [facility] at 830am when walk in opens. * Telephone Encounter - Vivi Salazar RN - 08/23/2023 2:53 PM EST Called pt. Back via stable manager. Manufacturing Engineering Professor #[id number]. Pt. States that he has a productive [...] accepted this outcome Please contact pt @ [phone] Sign Language documented in this encounter Plan of Treatment Upcoming Encounters Date Type Department Care Team ([facility] st Contact Info) Description 11/12/2024 10:45 AM EDT Office Visit [facility] MED & PEDS [address] [place] [address] Stan Fletcher MD [address] [place] [address] 02/10/2025 10:00 AM EDT Office Visit [facility] MED & PEDS [address] [place] [address] Stan Fletcher MD 505 [place] [address] documented as of this encounter Visit Diagnoses Not on filedocumented in this encounter Care Teams Fishing Accessories Maker Relationship Specialty Start Date End Date Stan Fletcher MD [address] [place] [address] PCP - General Internal Medicine 08/20/18 documented as of this encounter
--- OUTSIDE RECORDS SUMMARY | 2024-11-06 16:26 | XMS_ITS | Encounter Summary ---
Author Organization [employer] Address [address] [place] [address] Care Team Providers Care Patient Financial Counselor Name Role Phone Stan Fletcher MD Primary Care Provider [phone] Encounter Details Date Type Department Care Team ([facility] Contact Info) Description 07/16/[address] [facility] CHC MED & PEDS [address] [place] [address] Stan Fletcher MD [address] [place] [address] Social History Tobacco Use Types Packs/Day Years [...] Upcoming Encounters Date Type Department Care Team ([facility] Contact Info) Description 11/12/2024 10:45 AM EDT Office Visit [facility]C MED & PEDS [address] [place] [address] Stan Fletcher MD [address] [place] [address] 02/10/2025 10:00 AM EDT Office Visit [facility] MED & PEDS 505 [place] [address] Stan Fletcher MD [address] [place] [address] documented as of this encounter Procedures Procedure Name Priority Date/Time Associated Diagnosis Comments MR SHOULDER WO CONTRAST LEFT Routine 08/07/2023 8:15 AM EST documented in this encounter Results * MR Shoulder w/o Contrast Left (08/07/2023 8:15 AM EST) Anatomical Region Laterality Modality Upper Extremities, Shoulder Left Magn etic Resonance 08/07/2023 8:15 AM EST Narrative 08/07/2023 3:29 PM EST ? [facility] ?[address] ?[place] [address] ? Magnetic Resonance Report ? Signed ? Patient: Shawn,Nick ?MR#: [id number] ?? [id number] ? : 1960 ?Acct:[id number] ? Age/Sex: 62 / M ?ADM Date: 08/07/23 ? Loc: HO.MRI ? Attending Dr: Eddie Lawler MD ? Ordering Physician: Eddie Lawler MD ?? Date of Service: 08/07/23 ?? Procedure(s): MR shoulder LT wo con ?? Accession Number(s): [id number] ? cc: Stan Fletcher MD; Eddie Lawler MD ? EXAMINATION: ?? MR SHOULDER WITHOUT CONTRAST, LEFT ? CLINICAL INFORMATION: ?? Posterior left shoulder and arm pain since 06/23/2023. Impingement ?? syndrome. ? COMPARISON: ?? Left shoulder radiographs dated 06/26/2023. ? TECHNIQUE: ?? MRI of the shoulder was performed using routine sequences on a ?? high-field scanner. ? FINDINGS: ? ROTATOR CUFF: Zvde-wt-ydixjpoc supraspinatus tendinosis with anterior ?? bursal surface [...] LT wo con ?? IMPRESSION: ?? 1. Scfv-px-laclsskd supraspinatus tendinosis with anterior bursal ?? surface [...] 1526 ? DD/ 0815 ? TD/TT: ? Revenue Field Auditor: SR ? Procedure Note Donotuseinterpreter, Image - 08/07/[address] [address] Magnetic Resonance Report Signed Patient: Nick EscobarMR#: [id number] : 1960Acct:[id number] Age/Sex: 62 / MADM Date: 08/07/23 Loc: HO.MRI Attending Dr: Eddie Lawler MD Ordering Physician: Eddie Lawler MD Date of Service: 08/07/23 Procedure(s): MR shoulder LT wo con Accession Number(s): [id number] cc: Stan Fletcher MD; Eddie Lawler MD EXAMINATION: MR SHOULDER WITHOUT CONTRAST, LEFT CLINICAL INFORMATION: Posterior left shoulder and arm pain since 06/23/2023. Impingement syndrome. COMPARISON: Left shoulder radiographs dated 06/26/2023. TECHNIQUE: MRI of the shoulder was performed using routine sequences on a high-field scanner. FINDINGS: ROTATOR CUFF: Kdik-hh-cjmqzrwk supraspinatus tendinosis with anterior bursal surface fraying [...] MR/MR shoulder LT wo con IMPRESSION: 1. Ttiq-zt-jefqvlea supraspinatus tendinosis with anterior bursal surface fraying [...] in OV> 08/07/23 1526 DD/ 0815 TD/TT: Revenue Field Auditor: SR [facility] External Provider IMG MRI PROCEDURES Final Result documented in this encounter Visit Diagnoses Not on filedocumented in this encounter Care Teams Patient Financial Counselor Relationship Specialty Start Date End Date Stan Fletcher MD [address] [place] [address] PCP - General Internal Medicine 08/20/18 documented as of this encounter
== END 2024-11-06 14:15 | disposition home or self-care (01) ==
LOC: HO.HNS 13:46
PROVIDERS: PCP Internal Medicine; Visit Provider Physician Assistant
DX: M51.26 Other intervertebral disc displacement, lumbar region (principal)
CPT/HCPCS: 99024

== ENCOUNTER → 2024-11-06 13:46 | Outpatient (BNVA) | payer MEDICARE, MEDICAID, SELFPAY | PROVIDERS: PCP Internal Medicine; Visit Provider Physician Assistant | DX: Z47.89 Encounter for other orthopedic aftercare (principal); Z98.890 Other specified postprocedural states | CPT/HCPCS: 99212 ==

== ENCOUNTER 2024-11-12 11:33 | Outpatient (REF) | payer MEDICARE, MEDICAID, SELFPAY ==
[2024-11-12 14:31] LABS: Cholesterol 116 mg/dL (<200); HDL Cholesterol 32 mg/dL (>40); LDL Cholesterol Calculated 49 mg/dL (<100); Triglycerides 176 mg/dL (<150)
== END 2024-11-12 11:34 | disposition home or self-care (01) ==
LOC: HO.CHCLDS 11:33
PROVIDERS: Visit Provider Internal Medicine
DX: E11.9 Type 2 diabetes mellitus without complications (principal); Z79.4 Long term (current) use of insulin
CPT/HCPCS: 36415; 80061

== ENCOUNTER 2024-11-25 13:43 | Outpatient (REF) | payer MEDICARE, MEDICAID, SELFPAY ==
--- NOTE | ~2024-11-25 | MR_ITS ---
EXAMINATION: MR LUMBAR SPINE WITHOUT AND WITH CONTRAST CLINICAL INFORMATION: Other intervertebral disc displacement, lumbar region. COMPARISON: May 31, 2024. TECHNIQUE: MRI of the lumbar spine was obtained using routine sequences with and without contrast. Intravenous contrast: Gadavist 10 mL. No reported immediate complications FINDINGS: Last rib-bearing vertebra labeled T12. Paramagnetic field distortion secondary to metallic hardware at the posterior elements of L4-5. Bone marrow STIR signal within the endplates of L5-S1 and at the left side of the posterior elements/soft tissues at the surgical site with the heterogeneous enhancement head tendon extending from the left midline L5-S1 into the epidural/subdural compartment left lateral central spinal canal. The alignment is normal. The conus medullaris ends at pedicle of L1 with normal signal. T12-L1: No disc herniation. No neuroforamina stenosis. Facet joint hypertrophy. L2-3: Facet joint and ligamentum flavum hypertrophy. Reduced AP diameter of the thecal sac and neuroforamina. No compression upon neural elements. L2-3: Broad-based disc bulging. Facet joint and ligamentum flavum hypertrophy. Reduced AP diameter of the thecal sac and the neural foramina. No compression upon neural elements. L3-4: Broad-based disc bulging. Facet joint and ligamentum flavum hypertrophy. CSF effacement of the thecal sac. Central spinal canal and bilateral neuroforamina stenosis likely compressing the neural elements. L4-5: Postsurgical changes. Bilateral neuroforamina narrowing. L5-S1: There is heterogeneous enhancement along the ventral and dorsal and left lateral epidural/subdural compartment of the central spinal canal encroaching the left L5 exiting nerve root and likely the left S1 nerve root on its lateral recess. There is a broad-based disc bulging. There is bilateral neuroforamina stenosis encroaching, likely compressing the L5 exiting nerve roots. MR/MR lumbar spine wo/w con IMPRESSION: Granulation tissue extending from the ventral to the dorsal left lateral epidural/subdural compartment of the central spinal canal at L5-S1 encroaching the left L5 and left S1 nerve root. Central spinal canal and neuroforamina stenosis at L3-4 on a multifactorial basis compressing the neural elements. Bilateral neuroforamina stenosis at L5-S1 on a degenerative basis likely compressing the L5 exiting nerve roots. Electronically signed by: Dion Cortez MD 11/25/2024 03:47 PM EDT
[2024-11-25] MEDS: gadobutroL 10 ML VIAL IVPUSH (14:33)
--- OUTSIDE RECORDS SUMMARY | 2024-11-25 16:46 | XMS_ITS | Encounter Summary ---
Author Organization [employer] Address [address] [place] [address] Care Team Providers Care Track Manager Name Role Phone Stan Fletcher MD Primary Care Provider [phone] Reason for Visit * Reason Onset Date Comments Durable Medical Equipment 01/26/2023 Encounter Details Date Type Department Care Team ([facility] Contact Info) Description 01/26/2023 Telephone [facility] CHC MED & PEDS [address] [place], [place] [phone] Stan Fletcher MD [address] [place] [address] Durable Medical Equipment Social History Tobacco Use [...] Miscellaneous Notes * Telephone Encounter - Tori Tairq RN - 01/26/2023 11:08 AM EDT Please review request below and advise. Last office visit 01/02/23. * Telephone Encounter - Parul Tariq - 01/26/2023 10:01 AM EDT Tc from pt requesting a script and PA for a Freestyle mingo 2 sensor/glucose monitor. Would like itto be sent to [facility]. For clarification, please contact pt at [phone] (Sign language) documented in this encounter Plan of Treatment Upcoming Encounters Date Type Department Care Team ([facility] st Contact Info) Description 02/10/2025 10:00 AM EDT Office Visit [facility] CHC MED & PEDS [address] [place] [address] Stan Fletcher MD [address] [place] [address] documented as of this encounter Visit Diagnoses Diagnosis Type 2 diabetes mellitus without complication, with long-term current use of insulin ([facility])- Primary documented in this encounter Care Teams Track Manager Relationship Specialty Start Date End Date Stan Fletcher MD [address] [place] [address] PCP - General Internal Medicine 08/20/18 documented as of this encounter
--- OUTSIDE RECORDS SUMMARY | 2024-11-25 16:46 | XMS_ITS | Data Portability ---
Author Organization [employer] [facility] [place] [facility] - [email or web address] Address [address] [place] [phone] Care Team Providers Care Door Manager Name Role Phone [facility] Referring Provider Assessment No assessment recorded. Plan of Treatment Reminders Order Date Submit Date Provider Last Modified By Organization Details Last Modified Time Details Appointments None recorded. Lab None recorded. Referral None recorded. Procedures None recorded. Surgeries None recorded. Imaging None recorded. Medication Orders azithromyci n 250 mg tablet 2022 [facility] #[id number], [address] [place], [address], 10:33:17 Flovent HFA 44 mcg/actuati on aerosol inhaler 2022 023 [facility] #[id number], [address] [place], [address], 10:33:17 Patient TargetsNo targets recorded. Patient InstructionsNo [...] SNOMED-CT Code Diagnosis ICD10 Code Diagnosis Note 83089 Kiana Rojas MD Main - instED [address] [place] [phone] 05/23/2023 10:14:23 05/24/2023 00:31:53 Cough [id number] R05.9 I provided real -time medical direction via phone for this encounter, and was available for additional phone based assistance as needed. I have reviewed and agree with the Assessment and Plan as documented by the Assistant Womens Volleyball Coach. Patient given the opportunit y to ask [...] Liang Member ID Guarantor Name 05/23/2023 1 [facility] - DOS ON OR AFTER 2022 - DUAL ELIGIBLE - JAIL OPTIONS AND ONE CARE (MEDICARE REPLACEMENT/AD VANTAGE - HMO) Nick Escobar [id number] Nick Escobar Notes Date Note Type Note [...] Advised no further Prednisone until evaluated by [facility] grader meat. ................... ................... ................... ................... ................... ................... ................... ........ CRC Nursing Assessment: Comments: Reviewed = Deuce VASQUES ................... ................... ................... ................... ................... ................... ................... ........ Assistant Womens Volleyball Coach Note From Isaiah Green: Pt reports that [...] ........ Disposition: Fulfilled Kiana Rojas MD [address] [facility],[address], [place], [address], [employer] 05/23/2023 23:34:00
--- OUTSIDE RECORDS SUMMARY | 2024-11-25 16:46 | XMS_ITS | Encounter Summary ---
Author Organization [employer] Address [address] [place] [address] Care Team Providers Care Director Report Name Role Phone Stan Fletcher MD Primary Care Provider [phone] Encounter Details Date Type Department Care Team ([facility] Contact Info) Description 07/16/2023 Orders Only [facility] MED & PEDS [address] [place] [address] Stan Fletcher MD [address] [place] [address] Social History Tobacco Use Types Packs/Day Years [...] Upcoming Encounters Date Type Department Care Team ([facility] Contact Info) Description 02/10/2025 10:00 AM EDT Office Visit [facility] MED & PEDS [address] [place], [place] [phone] Stan Fletcher MD [address] [place] [address] documented as of this encounter Procedures Procedure Name Priority Date/Time Associated Diagnosis Comments MR SHOULDER WO CONTRAST LEFT Routine 08/07/2023 8:15 AM EST documented in this encounter Results * MR Shoulder w/o Contrast Left (08/07/2023 8:15 AM EST) Anatomical Region Laterality Modality Upper Extremities, Shoulder Left Magn etic Resonance 08/07/2023 8:15 AM EST Narrative 08/07/2023 3:29 PM EST ? [facility] ?[address] ?[place] [address] ? Magnetic Resonance Report ? Signed ? Patient: Labrecrasheed,Nick ?MR#: [id number] ?? [id number] ? : 1960 ?Acct:[id number] ? Age/Sex: 62 / M ?ADM Date: 08/07/23 ? Loc: HO.MRI ? Attending Dr: Eddie Lawler MD ? Ordering Physician: Eddie Lawler MD ?? Date of Service: 08/07/23 ?? Procedure(s): MR shoulder LT wo con ?? Accession Number(s): [id number] ? cc: Stan Fletcher MD; Eddie Lawler MD ? EXAMINATION: ?? MR SHOULDER WITHOUT CONTRAST, LEFT ? CLINICAL INFORMATION: ?? Posterior left shoulder and arm pain since 06/23/2023. Impingement ?? syndrome. ? COMPARISON: ?? Left shoulder radiographs dated 06/26/2023. ? TECHNIQUE: ?? MRI of the shoulder was performed using routine sequences on a ?? high-field scanner. ? FINDINGS: ? ROTATOR CUFF: Pxfz-me-rfnrojyd supraspinatus tendinosis with anterior ?? bursal surface [...] LT wo con ?? IMPRESSION: ?? 1. Hgrf-pg-zftxwpsi supraspinatus tendinosis with anterior bursal ?? surface [...] 1526 ? DD/ 0815 ? TD/TT: ? Worksite Wellness Practitioner: SR ? Procedure Note Eugenio Casey - 08/07/2023 [place] [address] [facility] [place] [address] Magnetic Resonance Report Signed Patient: Nick Escobar#: [id number] : 1960Acct:[id number] Age/Sex: 62 / MADM Date: 08/07/23 Loc: HO.MRI Attending Dr: Eddie Lawler MD Ordering Physician: Eddie Lalwer MD Date of Service: 08/07/23 Procedure(s): MR shoulder LT wo con Accession Number(s): [id number] cc: Stan Fletcher MD; Eddie Lawler MD EXAMINATION: MR SHOULDER WITHOUT CONTRAST, LEFT CLINICAL INFORMATION: Posterior left shoulder and arm pain since 06/23/2023. Impingement syndrome. COMPARISON: Left shoulder radiographs dated 06/26/2023. TECHNIQUE: MRI of the shoulder was performed using routine sequences on a high-field scanner. FINDINGS: ROTATOR CUFF: Mfft-zt-tgyejyup supraspinatus tendinosis with anterior bursal surface fraying [...] MR/MR shoulder LT wo con IMPRESSION: 1. Txfx-qm-yrzkqvxn supraspinatus tendinosis with anterior bursal surface fraying [...] Dove MD Signed By: <Electronically signed by Salu Dove MD in OV> 08/07/23 1526 DD/ 0815 TD/TT: Worksite Wellness Practitioner: SR [facility] External Provider IMG MRI PROCEDURES Final Result documented in this encounter Visit Diagnoses Not on filedocumented in this encounter Care Teams Director Report Relationship Specialty Start Date End Date Stan Fletcher MD [address] [place] [address] PCP - General Internal Medicine 08/20/18 documented as of this encounter
--- OUTSIDE RECORDS SUMMARY | 2024-11-25 16:46 | XMS_ITS | Encounter Summary ---
Author Organization [employer] Address [address] [place] [address] Care Team Providers Care Supervisor [address] Name Role Phone Stan Fletcher MD Primary Care Provider [phone] Reason for Visit * Reason Onset Date Comments Nurse Triage 08/23/2023 Encounter Details Date Type Department Care Team ([facility] st Contact Info) Description 08/23/2023 Telephone [facility] CHC MED & PEDS [address] [place], [place] [phone] Stan Fletcher MD [address] [place] [address] Nurse Triage Social History Tobacco Use Types [...] 3:50 PM EST Called pt. Back via aircraft servicer #[id number]. Called pt. Asked him if he has any Covid tests at home to test himself for Covid. Pt. States he has a test at home but, he currently at Pharmacy picking up some OTC cough medicine. I will call pt. Back at 430pm to see what Covid test result is as pt. States he lives [place] from [facility]. Called pt. Back via aircraft servicer #[id number]. Pt. Took Covid test and it came out Negative. Pt. ShowedASL bath mixer over video and she states that only the control line is showing and only 1 line on home Covid test. Advised pt. That per Dr. Fletcher he would like pt. To go to Walk in at [facility] tomorrow 08/23/2023 in the am to get his lungs listened to and to assess left lung congestion. Pt. States understanding and will go to walk in at [facility] at 830am when walk in opens. * Telephone Encounter - Vivi Salazar RN - 08/23/2023 2:53 PM EST Called pt. Back via aircraft servicer. Facility Manager #[id number]. Pt. States that he has a productive [...] accepted this outcome Please contact pt @ [phone] Sign Language documented in this encounter Plan of Treatment Upcoming Encounters Date Type Department Care Team ([facility] st Contact Info) Description 02/10/2025 10:00 AM EDT Office Visit [facility] MED & PEDS [address] [place] [address] Stan Fletcher MD [address] [place] [address] documented as of this encounter Visit Diagnoses Not on filedocumented in this encounter Care Teams Supervisor Engines Road Relationship Specialty Start Date End Date tSan Fletcher MD [address] [place] [address] PCP - General Internal Medicine 08/20/18 documented as of this encounter
--- OUTSIDE RECORDS SUMMARY | 2024-11-25 16:46 | XMS_ITS | Encounter Summary ---
Author Organization [employer] [facility] Address [address] [place] [address] Care Team Providers Care Junior High School Teacher Name Role Phone Stan Fletcher MD Primary Care Provider [phone] Reason for Visit * Reason Comments Med Refill Encounter Details Date Type Department Care Team ([facility] Contact Info) Description 03/20/2023 Refill [facility] MED & PEDS [address] [place] [address] Stan Fletcher MD [address] [place] [address] Type 2 diabetes mellitus with hyperglycemia, with long-term current use of insulin ([facility]) Social History Tobacco Use Types Packs/Day [...] Upcoming Encounters Date Type Department Care Team ([facility] Contact Info) Description 02/10/2025 10:00 AM EDT Office Visit [facility] MED & PEDS [address] [place] [address] Stan Fletcher MD [address] [place] [address] documented as of this encounter Visit Diagnoses Diagnosis Type 2 diabetes mellitus with hyperglycemia, with long-term current use of insulin ([facility]) documented in this encounter Care Teams Junior High School Teacher Relationship Specialty Start Date End Date Stan Fletcher MD [address] [place] [address] PCP - General Internal Medicine 08/20/18 documented as of this encounter
--- OUTSIDE RECORDS SUMMARY | 2024-11-25 16:46 | XMS_ITS | Encounter Summary ---
Author Organization [employer] Address [address] [place] [address] Care Team Providers Care Reporting Manager Name Role Phone Stan Fletcher MD Primary Care Provider [phone] Encounter Details Date Type Department Care Team ([facility] Contact Info) Description 08/23/2023 Orders Only [facility] MED & PEDS [address] [place] [address] Stan Fletcher MD [address] [place] [address] Social History Tobacco Use Types Packs/Day Years [...] Team ([facility] Contact Info) Description 02/10/2025 10:00 AM EDT Office Visit [facility] MED & PEDS [address] [place] [address] Stan Fletcher MD [address] [place] [address] documented as of this encounter Visit Diagnoses Not on filedocumented in this encounter Care Teams Reporting Manager Relationship Specialty Start Date End Date Stan Fletcher MD [address] [place], [place] [address] [address] PCP - General Internal Medicine 08/20/18 documented as of this encounter
--- OUTSIDE RECORDS SUMMARY | 2024-11-25 16:46 | XMS_ITS | Encounter Summary ---
Author Organization [employer] Address [address] [facility] [address], [place] [address] Care Team Providers Care Supervisor Mapping Name Role Phone Stan Fletcher MD Primary Care Provider [phone] Reason for Visit * Reason Onset Date Comments Med Refill 11/05/2023 Encounter Details Date Type Department Care Team ([facility] Contact Info) Description 11/05/2023 Telephone [facility] MEDICINE [address] [place] [address] Stan Fletcher MD [address] [place], [place] [phone] Med Refill Social History Tobacco Use Types [...] 1:59 PM EDT Tc from [facility] at [facility] requesting scripts for Continuous Blood Gluc Turnstile Attendant (FreeStyle Cathryn 2 [place]) device ,Continuous Blood Gluc Sensor (FreeStyle Cathryn 2 Sensor) misc and Precision Anjel Test Stripsit can be Faxed to [phone] documented in this encounter Plan of Treatment Upcoming Encounters Date Type Department Care Team (Late st Contact Info) Description 02/10/2025 10:00 AM EDT Office Visit [facility] MED & PEDS [address] [place] [address] Stan Fletcher MD [address] [place] [address] documented as of this encounter Visit Diagnoses Not on filedocumented in this encounter Care Teams Supervisor Mapping Relationship Specialty Start Date End Date Stan Fletcher MD [address] [place] [address] PCP - General Internal Medicine 08/20/18 documented as of this encounter
--- OUTSIDE RECORDS SUMMARY | 2024-11-25 16:47 | XMS_ITS | Encounter Summary ---
Author Organization [employer] [facility] Address [address] [place] [address] Care Team Providers Care Cnc Maintenance Technician Name Role Phone Stan Fletcher MD Primary Care Provider [phone] Encounter Details Date Type Department Care Team ([facility] Contact Info) Description 08/03/2022 Telephone [facility] MED & PEDS [address] [place] [address] Stan Fletcher MD [address] [place] [address] Social History Tobacco Use Types Packs/Day Years [...] Upcoming Encounters Date Type Department Care Team ([facility] Contact Info) Description 02/10/2025 10:00 AM EDT Office Visit [facility] MED & PEDS [address] [place] [address] Stan Fletcher MD [address] [place] [address] documented as of this encounter Visit Diagnoses Not on filedocumented in this encounter Care Teams Cnc Maintenance Technician Relationship Specialty Start Date End Date Stan Fletcher MD [address] [place] [address] PCP - General Internal Medicine 08/20/18 documented as of this encounter
--- OUTSIDE RECORDS SUMMARY | 2024-11-25 16:47 | XMS_ITS | Encounter Summary ---
Author Organization [employer] Address [address] [facility] 7 [place] [address] Care Team Providers Care Hemmer Chainstitch Name Role Phone Stan Fletcher MD Primary Care Provider [phone] Encounter Details Date Type Department Care Team ([facility] st Contact Info) Description 11/12/2024 Orders Only [facility] [address] [place] [address] Provider, MD Marcelle Social History Tobacco Use Types Packs/Day Years [...] 10:00 AM EDT Office Visit [facility] MED & PEDS [address] [place] [address] Stan Fletcher MD 505 [place] [address] documented as of this encounter Procedures Procedure Name Priority Date/Time Associated Diagnosis Comments DIABETES EYE EXAM Routine 11/11/2024 4:01 PM EDT documented in this encounter Results * Hm Diabetes Eye Exam (11/11/2024 4:01 PM EDT) us Historical Provider HEALTH MAINTENANCE Final Result documented in this encounter Visit Diagnoses Not on filedocumented in this encounter Additional Health Concerns Assessment Noted Time PHQ-9 Depression Total Score: 0 11/06/19 25 9:29 AM EDT documented as of this encounter Care Teams Hemmer Chainstitch Relationship Specialty Start Date End Date Stan Fletcher MD 505 [place] [address] PCP - General Internal Medicine 08/20/18 documented as of this encounter
--- OUTSIDE RECORDS SUMMARY | 2024-11-25 16:47 | XMS_ITS | Encounter Summary ---
Author Organization [employer] Address [address] [place] [address] Care Team Providers Care Beauty Shop Manager Name Role Phone Stan Fletcher MD Primary Care Provider [phone]- [phone] Encounter Details Date Type Department Care Team ([facility] Contact Info) Description 06/27/2023 Orders Only [facility] MED & PEDS [address] [place] [address] Stan Fletcher MD [address] [place] [address] Acute pain of left shoulder (Primary Dx) [...] Department Care Team (Late Contact Info) Description 02/10/2025 10:00 AM EDT Office Visit [facility] MED & PEDS [address] [place], [place] [phone] Stan Fletcher MD [address] [place] [address] documented as of this encounter Visit Diagnoses Diagnosis Acute pain of left shoulder- Primary documented in this encounter Care Teams Beauty Shop Manager Relationship Specialty Start Date End Date Stan Fletcher MD [address] [place] [address] PCP - General Internal Medicine 08/20/18 documented as of this encounter
--- OUTSIDE RECORDS SUMMARY | 2024-11-25 16:47 | XMS_ITS | Clinical Summary ---
Author Organization [employer] Address [address] [place] [address] 7 [place] [address] Care Team Providers Care Piano Regulator Name Role Phone Satn Fletcher MD Primary Care Provider [phone] Allergies Active Allergy Reactions Criticality Noted Date Comments Bee Pollen Hives High 10/14/2010 Other Reaction(s): SWELLING and facial swelling Denture Adhesive Rash High 12/25/2022 Prednisone 09/14/2023 Other Reaction(s): heart palpitation, raises glucose levels Simvastatin Hives 09/06/2011 Sulfa Antibiotics Hives 10/14/2010 Wound Dressing Adhesive Rash High 09/14/2023 Other Reaction(s): Rash, burning from EKG stickers Medications Pentips 31G X 5 MM misc [...] mL 11 2022 Active Continuous Blood Gluc Fork Assembler (FreeStyle Cathryn 2 [place]) deviceIndications:Type 2 diabetes mellitus without complication, with long-term current use of insulin ([facility]) To use daily 1 each 2022 Active Continuous Blood Gluc Sensor (FreeStyle Cathryn 2 Sensor) miscIndications:Type 2 diabetes mellitus without complication, with long-term current use of insulin ([facility]) To use daily 2 each 11 2022 [...] hyperglycemia, with long-term current use of insulin ([facility]) INJECT 12 UNITS SUBCUTANEOUSLY THREE TIMES DAILY [...] complication, with long-term current use of insulin ([facility]) Inject 12 Units as directed 3 times [...] 60 capsule 11 03/31 Active Continuous Glucose Fork Assembler (FreeStyle Cathryn 2 [place]) deviceIndications:Type 2 diabetes mellitus without complication, with long-term current use of insulin ([facility]) Scan sensor every 8 hours 1 each 2023 Active Continuous Glucose Sensor (FreeStyle Cathryn 2 Sensor) miscIndications:Type 2 diabetes mellitus without complication, with long-term current use of insulin ([facility]) Apply 1 sensor every 14 days 2 each 2023 Active glucose blood (FreeStyle Precision Anjel Test) test stripIndications:Type 2 diabetes mellitus without complication, with long-term current use of insulin ([facility]) Use to test blood sugar 4 times [...] 30 mL 11 2023 Active TechLite [place] 32G X 6 MM [facility] USE FOUR TIMES DAILY] 100 each 11 [...] Encounters Date Type Department Care Team Description 11/12/2024 10:45 AM EDT Office Visit [facility] MED & PEDS [address] [place] [phone] Stan Fletcher MD Primary hypertension (Primary Dx); Type 2 diabetes mellitus without complication, with long-term current use of insulin (CMS/HCC); Annual physical exam 11/12/2024 Orders Only [employer] [address] [place] [address] ProviderMarcelle MD 11/12/2024 Travel 11/11/[address] [facility] MEDICINE [address] [place] [address] Stan Fletcher MD 11/05/2024 9:15 AM EDT Office Visit [facility] MED & PEDS [address] [place] [phone] Stan Fletcher MD Type 2 diabetes mellitus without complication, with long-term current use of insulin (CMS/HCC) (Primary Dx); Herniation of intervertebral disc between L4 and L5; Primary hypertension; Dietary counseling; Exercise counseling; Class 1 obesity due to excess calories with serious comorbidity and body mass index (BMI) of 30.0 to 30.9 in adult 11/05/2024 Travel 11/04/[address] [facility] MED[facility] [address] [place] [address] Stan Fletcher MD Nurse Triage 09/30/2024 Telephone [facility] [address] [place] [address] Stan Fletcher MD Call Back Request 09/29/[address] [facility] [address] [place], [place] [phone] Stan Fletcher MD Acute pain of left shoulder 09/21/2024 Refill [facility] & PEDS [address] [place], [place] [phone] Stan Fletcher MD Right sided sciatica 09/11/2024 9:45 AM EST Office Visit [facility] MED & PEDS [address] [place] [address] Stan Fletcher MD Herniation of intervertebral disc between L4 and L5 (Primary Dx); Anterolisthesis; Greater trochanteric bursitis of left hip; Type 2 diabetes mellitus without complication, with long-term current use of insulin ([facility]) 09/11/2024 Travel 09/04/2024 Orders Only GENERIC EXTERNAL DATA DEPARTMENT Provider, Generic External Data from Last 3 Months Immunizations Name Administration [...] Sign Reading Time Taken Comments Blood Pressure 160/84 11/12/2024 10:48 AM EDT Pulse 68 11/12/2024 10:48 AM EDT Temperature 37.1 ??C (98.8 ??F) 11/12/2024 10:48 AM E DT Respiratory Rate 14 11/12/2024 10:48 AM EDT Oxygen Saturation 98% 11/12/2024 10:48 AM EDT Inhaled Oxygen Concentration - - Weight 90.3 kg (199 lb) 11/12/2024 10:48 AM EDT Height 173 cm (5' 8.11 ) 11/12/2024 10:48 AM EDT Body Mass Index 30.16 11/12/2024 10:48 AM EDT Plan of Treatment Upcoming Encounters Date Type Department Care Team ([facility] st Contact Info) Description 02/10/2025 10:00 AM EDT Office Visit [facility] PEDS [address] [place] [address] Stan Fletcher MD [address] [place] [address] Health Maintenance Due Date Last Done Comments CT Colonography 1960 Colonoscopy 1960 FIT 1962 FOBT 1960 Sigmoidoscopy 1960 Hepatitis C Screening 1980 COVID-19 Vaccine ( season) 2024 08/23/2023, 06/10/2022, 07/18/2021, Additional history exists Diabetes: Hemoglobin A1C 12/10/2024 025, 08/25/2024, 03/31/2024, Additional history exists Diabetes: Foot Exam 03/31/2025 03/31/2024 DTaP/Tdap/Td Vaccines (2 - Td or Tdap) 10/19/2025 10/20/2015 Alcohol/Substance Use Screening 11/05/2025 11/05/2024 Depression Screening 11/05/2025 11/05/2024, 11/06/19 Diabetes: Urine Protein Screening 11/05/2025 11/05/2024 SDOH Screening 11/05/2025 11/05/2024 Eye Exam 11/11/2025 11/11/2024, 10/20/2022 Lipid Panel 11/12/2025 11/12/2024 Tobacco Screening 11/12/2025 11/12/2024 Colorectal Cancer Screening 12/05/2026 FIT DNA/Cologuard 12/05/2026 [...] Procedure Name Priority Date/Time Associated Diagnosis Comments LIPID PANEL, STANDARD Routine 11/12/2024 11:34 AM EDT Type 2 diabetes mellitus without complication, with long-term current use of insulin (CMS/HCC) POCT GLUCOSE Routine 11/12/2024 10:49 AM EDT Type 2 diabetes mellitus without complication, with long-term current use of insulin (CMS/HCC) HM DIABETES EYE EXAM Routine 11/11/2024 4:01 PM EDT ALBUMIN, RANDOM URINE W/CREATININE Routine 11/05/2024 10:17 AM EDT Type 2 diabetes mellitus without complication, with long-term current use of insulin (CMS/HCC) POCT GLYCATED HEMOGLOBIN, TOTAL Routine 09/11/2024 10:40 AM EST Type 2 diabetes mellitus without complication, with long-term current use of insulin (CMS/HCC) POCT GLUCOSE Routine 09/11/2024 10:39 AM EST Type 2 diabetes mellitus without complication, with long-term current use of insulin (CMS/HCC) FL GUIDANCE IN OR Routine 09/04/2024 1:0 5 PM EST GLUCOSE, WHOLE BLOOD Routine 09/04/2024 12:42 PM EST LAB COLOGUARD?? COLON CANCER SCREEN Routine 12/06/2023 7:58 AM EDT Screening for colon cancer from Last 3 Months or Most Recently Relevant to Health Maintenance Results * (ABNORMAL) Lipid Panel, Standard (11/12/2024 11:34 AM EDT) Triglycerides 176(H) <150 mg/dL [facility] Comment:Desirable Triglyceri de: less than 150 mg/dLBorderline High Triglyceride 150-199 mg/dLHigh Triglyceride: 200-499 mg/dLVery High Triglyceride: greater than or equal to 5OO mg/dL Cholesterol 116 <200 mg/dL [facility] Comment:Desirable Cholestero l: less than 200 mg/dLBorderline High Cholesterol: 200-239 mg/dLHigh Cholesterol: greater than 239 mg/dL LDL Cholesterol Calculated 49 <100 mg/dL [facility] Comment:Desirable LDL: less than 100 mg/dLNear Optimal/Above Optimal LDL: 110- 129 mg/dLBorderline High LDL: 130-159 mg/dLHigh LDL: 160-189 mg/dLVery High LDL: greater than or equal to 190 mg/dL HDL Cholesterol 32(L) >40 mg/dL [facility] Comment:Desirable HDL: great er than 40 mg/dL Note: This HDL assay may give artificially low results in patients with liver disease. Blood Venous blood specimen / Unknown 11/12/2024 11:34 AM EDT 11/12/2024 2:15 PM EDT us Stan Fletcher MD LAB BLOOD ORDERABLES Final Result [facility] [address] [place] [address] [phone] * POCT glucose manually resulted (11/12/2024 10:49 AM EDT) Only the most recent of2 resultswithin the time period is included. Glucose Blood, POC 135 60 - 200 mg/dL QC Media Lot # Comment:[id number] Lot# Expiration Date Comment:02/19/2025 Blood Capillary blood specimen / Unknown 11/12/2024 10:49 AM EDT Stan Fletcher MD POINT OF CARE TEST ENTER/ED IT ORDERABLES Final Result * Diabetes Eye Exam (11/11/2024 4:01 PM EDT) Historical Provider HEALTH MAINTENANCE Final Result * Albumin, Random Urine W/Creatinine (11/05/2024 10:17 AM EDT) Creatinine, Urine 98.24 mg/dL [facility] Microalbumin Urine 20.0 mg/L [facility] Microalbum Creatinine Ratio Ur 20.3 <30 ug/mg cr [facility] Comment:Albumin/Creatinine R atio Reference Ranges: Normal: < 30 ug/mg creatinine Microalbuminuria: 30 - 300 ug/mg creatinineClinical Albuminuria: > 300 ug/mg creatinine Urine (Urine, Random) 11/05/2024 10:17 AM EDT 11/05/2024 2:07 PM EDT Stan Fletcher MD LAB URINE ORDERABLES Final Result [facility] [address] [place] [phone] * (ABNORMAL) POCT HGB A1C (09/11/2024 10:40 AM EST) Hemoglobin A1C 8.0(A) 4.0 - 6.0 % QC Media Lot # [id number] Lot# Expiration Date [id number] Blood 09/11/2024 10:4 0 AM EST us Stan Fletcher MD POINT OF CARE TEST ENTER/ED IT ORDERABLES Final Result * FL Guidance in OR (09/04/2024 1:05 PM EST) Anatomical Region Laterality Modality X-Ray Angiograph y 09/04/2024 1:05 PM EST Narrative 09/05/2024 2:02 PM EST ? [facility] ?[address] ?[place] [address] ? Fluoroscopy Report ? Signed ? Patient: Labrecrasheed,Nick ?MR#: [id number] ?? [id number] ? : 1960 ?Acct:[id number] ? Age/Sex: 63 / M ?ADM Date: 09/04/24 ? Loc: HO.SSS ? Attending Dr: Antwan Martinez MD, PhD ? Ordering Physician: Antwan Martinez MD, PhD ?? Date of Service: 09/04/24 ?? Procedure(s): FL guidance in OR ?? Accession Number(s): [id number] ? cc: Stan Fletcher MD; Antwan Martinez [...] DD/ 1305 ? TD/TT: 09/04/24 1345 ? [employer]: ? Procedure Note Donotuseinterpreter, Image - 09/05/[address] [address] Fluoroscopy Report Signed Patient: Nick EscobarMR#: [id number] : 1960Acct:[id number] Age/Sex: 63 / MADM Date: 09/04/24 Loc: HO.SSS Attending Dr: Antwan Martinez MD, PhD Ordering Physician: Antwan Martinez MD, PhD Date of Service: 09/04/24 Procedure(s): FL guidance in OR Accession Number(s): [id number] cc: Stan Fletcher MD; Antwan Martinez MD, [...] 09/05/24 1359 DD/ 1305 TD/TT: 09/04/24 1345 [employer]: [facility] External Provider IMG IR PROCEDURES Edited Result - Final * (ABNORMAL) Glucose, Whole Blood (09/04/2024 12:42 PM EST) Glucose, Whole Blood 198(H) 60 - 115 mg/dL [facility] Comment:METER #: [id number] 09/04/2024 12:4 2 PM EST 09/04/2024 12:45 PM EST us Generic External Data Provider LAB BLOOD ORDERAB LES Final Result [facility] [address] [place] [address] [phone] * (ABNORMAL) Cologuard?? colon cancer screening (12/06/2023 7:58 AM EDT) Cologuard Result Positive( A) Negative 12/13/2023 5:48 PM EDT [employer] (CLIA #:[id number]) Comment: POSITIVE TEST RESULT. A positive Cologuard [...] (Saritha Otto al, N Engl J Med 2014;370(14):3915-7222.) Cologuard may produce a false negative or false positive result (no colorectal cancer or precancerous polyp present at colonoscopy follow up). A negative Cologuard test result does not guarantee the absence of CRC or advanced adenoma (pre-cancer). The current Cologuard screening interval is every 3 years. ([place] Cancer Society and U.S. Multi-Society Task Force). Cologuard performance data in a 10,000 patient pivotal study using colonoscopy as the reference method can be accessed at the following location: [email or web address]/results. Additional description of the Cologuard test process, warnings and precautions can be found at www.[employer] [email or web address]. Stool specimen (specimen) Rectal contents / Unknown 12/06/2023 7:58 AM EDT 12/07/2023 10:55 AM EDT Stan Fletcher MD LAB MOLECULAR DIAGNOSTICS O RDERABLES Final Result [employer] (CLIA #:[id number]) [place] [place] [address], from Last 3 Months or Most Recently Relevant to Health Maintenance Insurance [address] [address] [facility] DUAL COMPLETE HMO High [address] [address] Care Teams Piano Regulator Relationship Specialty Start Date End Date Stan Fletcher MD [address] [place] [address] PCP - General Internal Medicine 08/20/18
--- OUTSIDE RECORDS SUMMARY | 2024-11-25 16:47 | XMS_ITS | Encounter Summary ---
Author Organization [employer] Address [address] [place] [address] Care Team Providers Care Paper Folding Machine Operator Name Role Phone Stan Fletcher MD Primary Care Provider [phone] Reason for Visit * Reason Comments Med Refill Encounter Details Date Type Department Care Team ([facility] Contact Info) Description 01/09/2023 Refill [facility] [address] [place] [address] Stan Fletcher MD [address] [place] [address] Social History Tobacco Use Types Packs/Day Years [...] Upcoming Encounters Date Type Department Care Team ([facility] Contact Info) Description 02/10/2025 10:00 AM EDT Office Visit [facility]ED[facility] [address] [place] [address] Stan Fletcher MD [address] [place] [address] documented as of this encounter Visit Diagnoses Not on filedocumented in this encounter Care Teams Paper Folding Machine Operator Relationship Specialty Start Date End Date Stan Fletcher MD [address] [place] [address] PCP - General Internal Medicine 08/20/18 documented as of this encounter
--- OUTSIDE RECORDS SUMMARY | 2024-11-25 16:47 | XMS_ITS | Encounter Summary ---
Author Organization [employer] [facility] Address [address] [place] [address] Care Team Providers Care Floral Design Teacher Name Role Phone Stan Fletcher MD Primary Care Provider [phone] Reason for Visit * Reason Comments Med Refill Encounter Details Date Type Department Care Team ([facility] Contact Info) Description 08/29/2022 Refill [facility] PEDS [address] [place] [address] Stan Fletcher MD [address] [place] [address] Chronic pain syndrome Social History Tobacco Use [...] Upcoming Encounters Date Type Department Care Team ([facility] Contact Info) Description 02/10/2025 10:00 AM EDT Office Visit [facility] [address] [place] [address] Stan Fletcher MD [address] [place] [address] documented as of this encounter Visit Diagnoses Diagnosis Chronic pain syndrome documented in this encounter Care Teams Floral Design Teacher Relationship Specialty Start Date End Date Stan Fletcher MD [address] [place] [address] PCP - General Internal Medicine 08/20/18 documented as of this encounter
--- OUTSIDE RECORDS SUMMARY | 2024-11-25 16:47 | XMS_ITS | Encounter Summary ---
Author Organization [employer] Address [address] [place] [address] Care Team Providers Care Short Story Writer Name Role Phone Stan Fletcher MD Primary Care Provider [phone] Reason for Referral * Imaging (STAT) - Closed Specialty Diagnoses / Procedures Referred By Contac t Referred To Contact Cardiology Diagnoses Palpitations Procedures Transthoracic Echo (TTE) Complete Stan Fletcher MD [address] [place] [address] Phone: tel: fax: [facility] Referral ID Status Reason Start Date Expiration Date V isits Requested Visits Authorized [id number] Closed Perform Procedure 12/11/2022 12/11/2023 1 1 Encounter Details Date Type Department Care Team ([facility] Contact Info) Description 12/07/2022 Orders Only [facility] [address] [place] [address] Stan Fletcher MD [address] [place] [address] Palpitations (Primary Dx) Social History Tobacco Use [...] ([facility] st Contact Info) Description 02/10/2025 10:00 AM EDT Office Visit [facility] MED & PEDS [address] [place] [address] Stan Fletcher MD [address] [place] [address] Scheduled Orders Name Type Priority Associated Diagnoses Order Schedule Transthoracic Echo (TTE) Complete Echocardiography STAT Palpitations Expected: 12/11/2022 (Approximate), Expires: 12/11/2024 documented as of this encounter Visit Diagnoses Diagnosis Palpitations- Primary documented in this encounter Care Teams Short Story Writer Relationship Specialty Start Date End Date Stan Fletcher MD [address] [place] [address] PCP - General Internal Medicine 08/20/18 documented as of this encounter
--- OUTSIDE RECORDS SUMMARY | 2024-11-25 16:47 | XMS_ITS | Encounter Summary ---
Author Organization [employer] Address [address] [place] [address] Care Team Providers Care Waterproofer Helper Name Role Phone Stan Fletcher MD Primary Care Provider +1 [phone] Reason for Referral * Consultation (Routine) - Pending Review Specialty Diagnoses / Procedures Referred By Contivan t Referred To Contact Gastroenterology Diagnoses Positive colorectal cancer screening using Cologuard test Stan Fletcher MD [address] [place] [address] Phone: tel: fax: Neli Jaeger MD [address] [place] [address] Phone: tel: fax: Referral ID Status Reason Start Date Expiration Date Visits Requested Visits Authorized [id number] Pending Review Specialty Services Required 12/14/2023 12/13/2024 1 1 Encounter Details Date Type Department Care Team ([facility] Contact Info) Description 12/14/2023 Orders Only [facility] MED & PEDS [address] [place], [place] [phone] Stan Fletcher MD [address] [place] [address] Positive colorectal cancer screening using Cologuard test [...] Upcoming Encounters Date Type Department Care Team ([facility] st Contact Info) Description 02/10/2025 10:00 AM EDT Office Visit [facility] MED & PEDS [address] [place] [address] Stan Fletcher MD [address] [place] [address] Scheduled Referrals Name Type Priority Associated Diagnoses [...] documented as of this encounter Care Teams Waterproofer Helper Relationship Specialty Start Date End Date Stan Fletcher MD [address] [place] [address] PCP - General Internal Medicine 08/20/18 documented as of this encounter
== END 2024-11-25 13:44 | disposition home or self-care (01) ==
LOC: HO.MRI 13:43
PROVIDERS: Visit Provider Physician Assistant
DX: M51.26 Other intervertebral disc displacement, lumbar region (principal)
CPT/HCPCS: 72158; A9585

== ENCOUNTER → 2024-11-25 14:01 | Outpatient (BNV) | payer MEDICARE, MEDICAID, SELFPAY | PROVIDERS: Visit Provider Radiology Diagnostic Radiology | DX: M51.369 Other intervertebral disc degeneration, lumbar region without mention of lumbar back pain or lower extremity pain (principal) | CPT/HCPCS: 72158 ==

== ENCOUNTER 2024-12-03 09:21 | Outpatient (REF) | payer MEDICARE, MEDICAID, SELFPAY ==
--- NOTE | 2024-12-03 09:25 | EMG_ITS ---
Chief complaint: Right hand numbness, especially at night, denies neck pain Reason for referral: Evaluate for Carpal Tunnel Syndrome Referred by: Dr. Stevens Procedure done: Right upper extremity NCS/EMG Precautions and/or limitations: None Psychiatric Assistant for Greenlandic sign language used. The limb temperature was monitored continuously and remained between 32-36 degrees C during the performance of the NCS. Nerve Conduction Studies Anti Sensory Summary Table ?Stim Site NR Onset (ms) Norm Onset (ms) Peak (ms) Norm Peak (ms) O-P Amp (?V) Norm O-P Amp Site1 Site2 Delta-0 (ms) Dist (cm) Manjeet (m/s) Norm Manjeet (m/s) Right Median Anti Sensory (2nd Digit) Wrist NR <3.6 >10 Wrist 2nd Digit 14.0 Right Radial Anti Sensory (Thumb) Forearm ? 2.0 2.7 <3.1 11.4 Forearm Thumb 2.0 0.0 Right Ulnar Anti Sensory (5th Digit) Wrist ? 2.3 3.3 <3.7 15.3 >15.0 Wrist 5th Digit 2.3 14.0 61 Motor Summary Table ?Stim Site NR Onset (ms) Norm Onset (ms) O-P Amp (mV) Norm O-P Amp iAmp (mV) Amp (1st) (%) Site1 Site2 Delta-0 (ms) Dist (cm) Manjeet (m/s) Norm Manjeet (m/s) Right Median Motor (Abd Poll Brev) Wrist ? 8.1 <3.9 7.7 >4.5 9.7 100.0 Elbow Wrist 4.8 21.0 44 >45 Elbow ? 12.9 7.3 9.5 94.8 Right Ulnar Motor (Abd Dig Minimi) Wrist ? 3.0 <3.0 7.6 >5 10.5 100.0 B Elbow Wrist 4.3 21.0 49 >45 B Elbow ? 7.3 7.4 10.6 97.4 A Elbow B Elbow 1.5 10.0 67 >45 A Elbow ? 8.8 6.9 10.0 90.8 EMG ?Side Muscle Nerve Root Ins Act Fibs Psw Amp Dur Poly Recrt Int Pat Comment Right 1stDorInt Ulnar C8-T1 Nml Nml Nml Nml Nml 0 Nml Complete Right FlexCarRad Median C6-7 Nml Nml Nml Nml Nml 0 Nml Complete Right Biceps Musculocut C5-6 Nml Nml Nml Nml Nml 0 Nml Complete Right Triceps Radial C6-7-8 Nml Nml Nml Nml Nml 0 Nml Complete Right Deltoid Axillary C5-6 Nml Nml Nml Nml Nml 0 Nml Complete FINDINGS: Right median motor nerve showed prolonged distal latency, normal amplitude and slow conduction velocity. Right median sensory nerve showed absent response. All other nerves tested were within normal. Concentric needle EMG was performed in selected muscles of the right upper extremity. Study did not reveal signs of electric abnormalities as shown in the table above. IMPRESSION: 1. This is an abnormal study. 2. There is electrodiagnostic evidence for right moderate-severe median neuropathy at the wrist, consistent with carpal tunnel syndrome. 3. There is no electrodiagnostic evidence for ulnar neuropathy, brachial plexopathy, or cervical radiculopathy. Thank you for your kind referral. Lina Nieves MD, SRIKANTH Board Certified, [place] Board of Physical Medicine and Rehabilitation (ABPMR) Board Certified, [place] Board of Electrodiagnostic Medicine (ABEM) CODIN [id number] [facility]
--- OUTSIDE RECORDS SUMMARY | 2024-12-03 10:17 | XMS_ITS | Encounter Summary ---
Author Organization [employer] Address [address] [facility] [address], [place] [address] Care Team Providers Care Irb Compliance Coordinator Name Role Phone Stan Fletcher MD Primary Care Provider [phone] Reason for Visit * Reason Onset Date Comments Med Refill 11/05/2023 Encounter Details Date Type Department Care Team ([facility] Contact Info) Description 11/05/2023 Telephone [facility] [address] [place] [address] Stan Fletcher MD [address] [place], [place] [phone] Med Refill Social History Tobacco Use Types [...] 1:59 PM EDT Tc from [facility] at [facility] requesting scripts for Continuous Blood Gluc Airport Security Screener (FreeStyle Cathryn 2 [place]) device ,Continuous Blood Gluc Sensor (FreeStyle Cathryn 2 Sensor) misc and Precision Anjel Test Stripsit can be Faxed to [phone] documented in this encounter Plan of Treatment Upcoming Encounters Date Type Department Care Team (Late st Contact Info) Description 02/10/2025 10:00 AM EDT Office Visit [facility] MED & PEDS [address] [place] [address] Stan Fletcher MD [address] [place] [address] documented as of this encounter Visit Diagnoses Not on filedocumented in this encounter Care Teams Irb Compliance Coordinator Relationship Specialty Start Date End Date Stan Fletcher MD [address] [place] [address] PCP - General Internal Medicine 08/20/18 documented as of this encounter
--- OUTSIDE RECORDS SUMMARY | 2024-12-03 10:18 | XMS_ITS | Encounter Summary ---
Author Organization [employer] [facility] Address [address] [place] [address] Care Team Providers Care Global Vp Creative + Content Marketing Name Role Phone Stan Fletcher MD Primary Care Provider [phone] Encounter Details Date Type Department Care Team ([facility] Contact Info) Description 08/03/[address] [facility] MED & PEDS [address] [place] [address] Stan Fletcher MD [address] [place] [address] Social History Tobacco Use Types Packs/Day Years [...] Upcoming Encounters Date Type Department Care Team ([facility] Contact Info) Description 02/10/2025 10:00 AM EDT Office Visit [facility] MED & PEDS [address] [place] [address] Stan Fletcher MD [address] [place] [address] documented as of this encounter Visit Diagnoses Not on filedocumented in this encounter Care Teams Global Vp Creative + Content Marketing Relationship Specialty Start Date End Date Stan Fletcher MD [address] [place] [address] PCP - General Internal Medicine 08/20/18 documented as of this encounter
--- OUTSIDE RECORDS SUMMARY | 2024-12-03 10:18 | XMS_ITS | Encounter Summary ---
Author Organization [employer] Address [address] [place] [address] Care Team Providers Care Vacuum Metalizer Operator Name Role Phone Stan Fletcher MD Primary Care Provider [phone] Encounter Details Date Type Department Care Team ([facility] Contact Info) Description 08/23/2023 Orders Only [facility] MED & PEDS [address] [place] [address] Stan Fletcher MD [address] [place] [address] Social History Tobacco Use Types Packs/Day Years [...] Upcoming Encounters Date Type Department Care Team ([facility] Contact Info) Description 02/10/2025 10:00 AM EDT Office Visit [facility] MED & PEDS [address] [place] [address] Stan Fletcher MD [address] [place] [address] documented as of this encounter Visit Diagnoses Not on filedocumented in this encounter Care Teams Vacuum Metalizer Operator Relationship Specialty Start Date End Date Stan Fletcher MD [address] [place], [place] [address] [address] PCP - General Internal Medicine 08/20/18 documented as of this encounter
--- OUTSIDE RECORDS SUMMARY | 2024-12-03 10:18 | XMS_ITS | Encounter Summary ---
Author Organization [employer] Address [address] [place] [address] Care Team Providers Care Irrigation Teacher Name Role Phone Stan Fletcher MD Primary Care Provider [phone] Reason for Visit * Reason Onset Date Comments Durable Medical Equipment 01/26/2023 Encounter Details Date Type Department Care Team ([facility] Contact Info) Description 01/26/2023 Telephone [facility] MED & PEDS [address] [place], [place] [phone] Stan Fletcher MD [address] [place] [address] Durable Medical Equipment Social History Tobacco Use [...] CCA. For clarification, please contact pt at [phone] (Sign language) documented in this encounter Plan of Treatment Upcoming Encounters Date Type Department Care Team ([facility] st Contact Info) Description 02/10/2025 10:00 AM EDT Office Visit [facility] MED & PEDS [address] [place] [address] tSan Fletcher MD [address] [place] [address] documented as of this encounter Visit Diagnoses Diagnosis Type 2 diabetes mellitus without complication, with long-term current use of insulin ([facility] Primary documented in this encounter Care Teams Irrigation Teacher Relationship Specialty Start Date End Date Stan Fletcher MD [address] [place] [address] PCP - General Internal Medicine 08/20/18 documented as of this encounter
--- OUTSIDE RECORDS SUMMARY | 2024-12-03 10:18 | XMS_ITS | Encounter Summary ---
Author Organization [employer] [facility] Address [address] [place] [address] Care Team Providers Care Technology Architect Name Role Phone Stan Fletcher MD Primary Care Provider [phone] Reason for Visit * Reason Comments Med Refill Encounter Details Date Type Department Care Team ([facility] Contact Info) Description 08/29/2022 Refill [facility] MED & PEDS [address] [place] [address] Stan Fletcher MD [address] [place] [address] Chronic pain syndrome Social History Tobacco Use [...] Upcoming Encounters Date Type Department Care Team ([facility] Contact Info) Description 02/10/2025 10:00 AM EDT Office Visit [facility] MED & PEDS [address] [place] [address] Stan Fletcher MD [address] [place] [address] documented as of this encounter Visit Diagnoses Diagnosis Chronic pain syndrome documented in this encounter Care Teams Technology Architect Relationship Specialty Start Date End Date Stan Fletcher MD [address] [place] [address] PCP - General Internal Medicine 08/20/18 documented as of this encounter
--- OUTSIDE RECORDS SUMMARY | 2024-12-03 10:18 | XMS_ITS | Data Portability ---
Author Organization [email or web address] [facility] Address [address] [place] [phone] Care Team Providers Care Material Damage Adjuster Name Role Phone [facility] Referring Provider Assessment No assessment recorded. Plan of Treatment Reminders Order Date Submit Date Provider Last Modified By Organization Details Last Modified Time Details Appointments None recorded. Lab None recorded. Referral None recorded. Procedures None recorded. Surgeries None recorded. Imaging None recorded. Medication Orders azithromyci n 250 mg tablet 2022 [facility] #[id number], [address] [place], [address], 10:33:17 Flovent HFA 44 mcg/actuati on aerosol inhaler 2022 023 [facility]/Pharmacy #[id number], [address] [place], [address], 10:33:17 Patient TargetsNo targets recorded. Patient InstructionsNo [...] SNOMED-CT Code Diagnosis ICD10 Code Diagnosis Note [id number] Kiana Rojas MD Main - instED [address] [place] [phone] 05/23/2023 10:14:23 05/24/2023 00:31:53 Cough 56022423 R05.9 I provided real -time medical direction via phone for this encounter, and was available for additional phone based assistance as needed. I have reviewed and agree with the Assessment and Plan as documented by the Refrigeration Mechanic Helper. Patient given the opportunit y to ask [...] OR AFTER 2022 - DUAL ELIGIBLE - [facility] AND ONE [facility]ARE (MEDICARE REPLACEMENT/AD VANTAGE - HMO) Nick Escobar [id number] Nick Escobar Notes Date Note Type Note [...] Advised no further Prednisone until evaluated by [facility] turpentine distiller. ................... ................... ................... ................... ................... ................... ................... ........ CRC Nursing Assessment: Comments: Reviewed = Deuce VASQUES ................... ................... ................... ................... ................... ................... ................... ........ Refrigeration Mechanic Helper Note From Isaiah Green: Pt reports [...] ........ Disposition: Fulfilled Kiana Rojas MD [address] [facility],[address], [place], [address], [facility]velstay 05/23/2023 23:34:00
--- OUTSIDE RECORDS SUMMARY | 2024-12-03 10:18 | XMS_ITS | Encounter Summary ---
Author Organization [employer] Address [address] [place] [address] Care Team Providers Care Stock Mover Name Role Phone Stan Fletcher MD Primary Care Provider [phone]- [phone] Encounter Details Date Type Department Care Team ([facility] Contact Info) Description 06/27/2023 Orders Only [facility] MED & PEDS [address] [place] [address] Stan Fletcher MD [address] [place] [address] Acute pain of left shoulder (Primary Dx) [...] Description 02/10/2025 10:00 AM EDT Office Visit [facility] MED & PEDS [address] [place], [place] [phone] Stan Fletcher MD [address] [place] [address] documented as of this encounter Visit Diagnoses Diagnosis Acute pain of left shoulder- Primary documented in this encounter Care Teams Stock Mover Relationship Specialty Start Date End Date Stan Fletcher MD [address] [place] [address] PCP - General Internal Medicine 08/20/18 documented as of this encounter
--- OUTSIDE RECORDS SUMMARY | 2024-12-03 10:18 | XMS_ITS | Encounter Summary ---
Author Organization [employer] Address [address] [place] [address] Care Team Providers Care Application Technician Name Role Phone Stan Fletcher MD Primary Care Provider [phone] Reason for Referral * Imaging (STAT) - Closed Specialty Diagnoses / Procedures Referred By Contac t Referred To Contact Cardiology Diagnoses Palpitations Procedures Transthoracic Echo (TTE) Complete Stan Fletcher MD [address] [place] [address] Phone: tel: fax: [facility] Referral ID Status Reason Start Date Expiration Date V isits Requested Visits Authorized [id number] Closed Perform Procedure 12/11/2022 12/11/2023 1 1 Encounter Details Date Type Department Care Team ([facility] Contact Info) Description 12/07/2022 Orders Only [facility] MED & PEDS [address] [place] [address] Stan Fletcher MD [address] [place] [address] Palpitations (Primary Dx) Social History Tobacco Use [...] Upcoming Encounters Date Type Department Care Team ([facility] st Contact Info) Description 02/10/2025 10:00 AM EDT Office Visit [facility] MED & PEDS [address] [place] [address] Stan Fletcher MD [address] [place] [address] Scheduled Orders Name Type Priority Associated Diagnoses Order Schedule Transthoracic Echo (TTE) Complete Echocardiography STAT Palpitations Expected: 12/11/2022 (Approximate), Expires: 12/11/2024 documented as of this encounter Visit Diagnoses Diagnosis Palpitations- Primary documented in this encounter Care Teams Application Technician Relationship Specialty Start Date End Date Stan Fletcher MD [address] [place] [address] PCP - General Internal Medicine 08/20/18 documented as of this encounter
--- OUTSIDE RECORDS SUMMARY | 2024-12-03 10:18 | XMS_ITS | Encounter Summary ---
Author Organization [employer] Address [address] [place] [address] Care Team Providers Care Kettle Chipper Name Role Phone Stan Fletcher MD Primary Care Provider [phone] Encounter Details Date Type Department Care Team ([facility] Contact Info) Description 07/16/2023 Orders Only [facility] MED & PEDS [address] [place] [address] Stan Fletcher MD [address] [place] [address] Social History Tobacco Use Types Packs/Day Years [...] Upcoming Encounters Date Type Department Care Team ([facility] Contact Info) Description 02/10/2025 10:00 AM EDT Office Visit [facility] MED & PEDS [address] [place], [place] [phone] Stan Fletcher MD [address] [place] [address] documented as of this encounter Procedures Procedure Name Priority Date/Time Associated Diagnosis Comments MR SHOULDER WO CONTRAST LEFT Routine 08/07/2023 8:15 AM EST documented in this encounter Results * MR Shoulder w/o Contrast Left (08/07/2023 8:15 AM EST) Anatomical Region Laterality Modality Upper Extremities, Shoulder Left Magn etic Resonance 08/07/2023 8:15 AM EST Narrative 08/07/2023 3:29 PM EST ? [facility] ?[address] ?[place] [id number] ? Magnetic Resonance Report ? Signed ? Patient: Labrecrasheed,Nick ?MR#: [id number] ?? [id number] ? : 1960 ?Acct:[id number] ? Age/Sex: 62 / M ?ADM Date: 08/07/23 ? Loc: HO.MRI ? Attending Dr: Eddie Lawler MD ? Ordering Physician: Eddie Lawler MD ?? Date of Service: 08/07/23 ?? Procedure(s): MR shoulder LT wo con ?? Accession Number(s): [id number] ? cc: Stan Fletcher MD; Eddie Lawler MD ? EXAMINATION: ?? MR SHOULDER WITHOUT CONTRAST, LEFT ? CLINICAL INFORMATION: ?? Posterior left shoulder and arm pain since 06/23/2023. Impingement ?? syndrome. ? COMPARISON: ?? Left shoulder radiographs dated 06/26/2023. ? TECHNIQUE: ?? MRI of the shoulder was performed using routine sequences on a ?? high-field scanner. ? FINDINGS: ? ROTATOR CUFF: Olxz-yr-ubjpbkjl supraspinatus tendinosis with anterior ?? bursal surface [...] LT wo con ?? IMPRESSION: ?? 1. Sxxe-su-tqodmidz supraspinatus tendinosis with anterior bursal ?? surface [...] 1526 ? DD/ 0815 ? TD/TT: ? Supplier Quality Engineering Manager: SR ? Procedure Note Eugenio Casey - 08/07/2023 [place] [address] [place] [address] Magnetic Resonance Report Signed Patient: Nick Escobar#: [id number] : 1960Acct:[id number] Age/Sex: 62 / MADM Date: 08/07/23 Loc: HO.MRI Attending Dr: Eddie Lawler MD Ordering Physician: Eddie Lawler MD Date of Service: 08/07/23 Procedure(s): MR shoulder LT wo con Accession Number(s): [id number] cc: Stan Fletcher MD; Eddie Lawler MD EXAMINATION: MR SHOULDER WITHOUT CONTRAST, LEFT CLINICAL INFORMATION: Posterior left shoulder and arm pain since 06/23/2023. Impingement syndrome. COMPARISON: Left shoulder radiographs dated 06/26/2023. TECHNIQUE: MRI of the shoulder was performed using routine sequences on a high-field scanner. FINDINGS: ROTATOR CUFF: Mwbx-pa-jvtbpucy supraspinatus tendinosis with anterior bursal surface fraying [...] MR/MR shoulder LT wo con IMPRESSION: 1. Wcay-ar-gormwqjc supraspinatus tendinosis with anterior bursal surface fraying [...] in OV> 08/07/23 1526 DD/ 0815 TD/TT: Supplier Quality Engineering Manager: SR [facility] External Provider IMG MRI PROCEDURES Final Result documented in this encounter Visit Diagnoses Not on filedocumented in this encounter Care Teams Kettle Chipper Relationship Specialty Start Date End Date Stan Fletcher MD [address] [place] [address] PCP - General Internal Medicine 08/20/18 documented as of this encounter
--- OUTSIDE RECORDS SUMMARY | 2024-12-03 10:18 | XMS_ITS | Encounter Summary ---
Author Organization [employer] Address [address] [place] [address] Care Team Providers Care Knock Out Hand Name Role Phone Stan Fletcher MD Primary Care Provider [phone] Reason for Visit * Reason Comments Med Refill Encounter Details Date Type Department Care Team ([facility] Contact Info) Description 01/09/2023 Refill [facility] MED & PEDS [address] [place] [address] Stan Fletcher MD [address] [place] [address] Social History Tobacco Use Types Packs/Day Years [...] Encounters Date Type Department Care Team ([facility] Contact Info) Description 02/10/2025 10:00 AM EDT Office Visit [facility] MED & PEDS [address] [place] [address] Stan Fletcher MD [address] [place] [address] documented as of this encounter Visit Diagnoses Not on filedocumented in this encounter Care Teams Knock Out Hand Relationship Specialty Start Date End Date Stan Fletcher MD [address] [place] [address] PCP - General Internal Medicine 08/20/18 documented as of this encounter
--- OUTSIDE RECORDS SUMMARY | 2024-12-03 10:18 | XMS_ITS | Encounter Summary ---
Author Organization [employer] [facility] Address [address] [place] [address] Care Team Providers Care Post Manager Name Role Phone Stan Fletcher MD Primary Care Provider [phone] Reason for Visit * Reason Comments Med Refill Encounter Details Date Type Department Care Team ([facility] Contact Info) Description 03/20/2023 Refill [facility] [address] [place] [address] Stan Fletcher MD [address] [place] [address] Type 2 diabetes mellitus with hyperglycemia, with long-term current use of insulin ([facility]) Social History Tobacco Use Types Packs/Day Years [...] Upcoming Encounters Date Type Department Care Team ([facility] Contact Info) Description 02/10/2025 10:00 AM EDT Office Visit [facility] [address] [place] [address] Stan Fletcher MD [address] [place] [address] documented as of this encounter Visit Diagnoses Diagnosis Type 2 diabetes mellitus with hyperglycemia, with long-term current use of insulin ([facility]) documented in this encounter Care Teams Post Manager Relationship Specialty Start Date End Date Stan Fletcher MD [address] [place] [address] PCP - General Internal Medicine 08/20/18 documented as of this encounter
--- OUTSIDE RECORDS SUMMARY | 2024-12-03 10:18 | XMS_ITS | Clinical Summary ---
Author Organization [employer] Address [address] [place] [address] 7 [place] [address] Care Team Providers Care Powerhouse Mechanic Apprentice Name Role Phone Stan Fletcher MD Primary Care Provider [phone] Allergies Active Allergy Reactions Criticality Noted Date [...] mL 11 2022 Active Continuous Blood Gluc Security Team Lead (FreeStyle Cathryn 2 Micro) deviceIndications:Type 2 diabetes mellitus without complication, with long-term current use of insulin ([facility]) To use daily 1 each 2022 Active Continuous Blood Gluc Sensor (FreeStyle Cathryn 2 Sensor) miscIndications:Type 2 diabetes mellitus without complication, with long-term current use of insulin ([facility]) To use daily 2 each 11 2022 [...] hyperglycemia, with long-term current use of insulin ([facility]) INJECT 12 UNITS SUBCUTANEOUSLY THREE TIMES DAILY [...] complication, with long-term current use of insulin ([facility]) Inject 12 Units as directed 3 times [...] 60 capsule 11 03/31 Active Continuous Glucose Security Team Lead (FreeStyle Cathryn 2 Micro) deviceIndications:Type 2 diabetes mellitus without complication, with long-term current use of insulin ([facility]) Scan sensor every 8 hours 1 each 2023 Active Continuous Glucose Sensor (FreeStyle Cathryn 2 Sensor) miscIndications:Type 2 diabetes mellitus without complication, with long-term current use of insulin ([facility]) Apply 1 sensor every 14 days 2 each 2023 Active glucose blood (FreeStyle Precision Anjel Test) test stripIndications:Type 2 diabetes mellitus without complication, with long-term current use of insulin ([facility]) Use to test blood sugar 4 times [...] 30 mL 11 2023 Active TechLite Pen [place] 32G X 6 MM [facility] USE FOUR TIMES DAILY] 100 each 11 [...] [facility] [address] [place] [phone] Stan Fletcher MD Primary hypertension (Primary Dx); Type 2 diabetes mellitus without complication, with long-term current use of insulin (CMS/HCC); Annual physical exam 11/12/2024 Orders Only [employer] [address] [place] [address] ProviderMarcelle MD 11/12/2024 Travel 11/11/2024 Telephone [facility] MEDICINE [address] [place] [address] Stan Fletcher MD 11/05/2024 9:15 AM EDT Office Visit [facility] [address] [place] [phone] Stan Fletcher MD Type 2 diabetes mellitus without complication, with long-term current use of insulin (CMS/HCC) (Primary Dx); Herniation of intervertebral disc between L4 and L5; Primary hypertension; Dietary counseling; Exercise counseling; Class 1 obesity due to excess calories with serious comorbidity and body mass index (BMI) of 30.0 to 30.9 in adult 11/05/2024 Travel 11/04/2024 Telephone [facility] MEDICINE [address] [place] [address] Stan Fletcher MD Nurse Triage 09/30/2024 Telephone [facility] [address] [place] [address] Stan Fletcher MD Call Back Request 09/29/2024 Refill [facility] MEDICINE [address] [place], [place] [phone] Stan Fletcher MD Acute pain of left shoulder 09/21/2024 Refill [facility] [address] [place], [place] [phone] Stan Fletcher MD Right sided sciatica 09/11/2024 9:45 AM EST Office Visit [facility] MED [facility] PEDS [address] [place] [address] Stan Fletcher MD Herniation of intervertebral disc between L4 and L5 (Primary Dx); Anterolisthesis; Greater trochanteric bursitis of left hip; Type 2 diabetes mellitus without complication, with long-term current use of insulin ([facility]) 09/11/2024 Travel 09/04/2024 Orders Only GENERIC EXTERNAL [...] Upcoming Encounters Date Type Department Care Team ([facility] st Contact Info) Description 02/10/2025 10:00 AM EDT Office Visit [facility]S [address] [place] [address] Stan Fletcher MD [address] [place] [address] Health Maintenance Due Date Last Done Comments [...] 11:34 AM EDT) Triglycerides 176(H) <150 mg/dL [facility] Comment:Desirable Triglyceri de: less than 150 mg/dLBorderline High Triglyceride 150-199 mg/dLHigh Triglyceride: 200-499 mg/dLVery High Triglyceride: greater than or equal to 5OO mg/dL Cholesterol 116 <200 mg/dL [facility] Comment:Desirable Cholestero l: less than 200 mg/dLBorderline High Cholesterol: 200-239 mg/dLHigh Cholesterol: greater than 239 mg/dL LDL Cholesterol Calculated 49 <100 mg/dL [facility] Comment:Desirable LDL: less than 100 mg/dLNear Optimal/Above Optimal LDL: 110- 129 mg/dLBorderline High LDL: 130-159 mg/dLHigh LDL: 160-189 mg/dLVery High LDL: greater than or equal to 190 mg/dL HDL Cholesterol 32(L) >40 mg/dL [facility] Comment:Desirable HDL: great er than 40 mg/dL Note: This HDL assay may give artificially low results in patients with liver disease. Blood Venous blood specimen / Unknown 11/12/2024 11:34 AM EDT 11/12/2024 2:15 PM EDT us Stan Fletcher MD LAB BLOOD ORDERABLES Final Result [facility] [address] [place] [address] [phone] * POCT glucose manually resulted (11/12/2024 10:49 AM EDT) Only the most recent of2 resultswithin the time period is included. Glucose Blood, POC 135 60 - 200 mg/dL QC Media Lot # Comment:[id number] Lot# Expiration Date Comment:02/19/2025 Blood Capillary blood specimen / Unknown 11/12/2024 10:49 AM EDT Stan Fletcher MD POINT OF CARE TEST ENTER/ED IT ORDERABLES Final Result * Diabetes Eye Exam (11/11/2024 4:01 PM EDT) Historical Provider HEALTH MAINTENANCE Final Result * Albumin, Random Urine W/Creatinine (11/05/2024 10:17 AM EDT) Creatinine, Urine 98.24 mg/dL [facility] Microalbumin Urine 20.0 mg/L [facility] Microalbum Creatinine Ratio Ur 20.3 <30 ug/mg cr [facility] Comment:Albumin/Creatinine R atio Reference Ranges: Normal: < 30 ug/mg creatinine Microalbuminuria: 30 - 300 ug/mg creatinineClinical Albuminuria: > 300 ug/mg creatinine Urine (Urine, Random) 11/05/2024 10:17 AM EDT 11/05/2024 2:07 PM EDT Stan Fletcher MD LAB URINE ORDERABLES Final Result [facility] [address] [place] [phone] * (ABNORMAL) POCT HGB A1C (09/11/2024 10:40 AM EST) Hemoglobin A1C 8.0(A) 4.0 - 6.0 % QC Media Lot # [id number] Lot# Expiration Date [id number] Blood 09/11/2024 10:4 0 AM EST us Stan Fletcher MD POINT OF CARE TEST ENTER/ED IT ORDERABLES Final Result * FL Guidance in OR (09/04/2024 1:05 PM EST) Anatomical Region Laterality Modality X-Ray Angiograph y 09/04/2024 1:05 PM EST Narrative 09/05/2024 2:02 PM EST ? [facility] ?[address] ?[place] [address] ? Fluoroscopy Report ? Signed ? Patient: Labrecrasheed,Nick ?MR#: [id number] ?? [id number] ? : 1960 ?Acct:[id number] ? Age/Sex: 63 / M ?ADM Date: 09/04/24 ? Loc: HO.SSS ? Attending Dr: Antwan Martinez MD, PhD ? Ordering Physician: Antwan Martinez MD, PhD ?? Date of Service: 09/04/24 ?? Procedure(s): FL guidance in OR ?? Accession Number(s): [id number] ? cc: Stan Fletcher MD; Antwan Martinez [...] DD/ 1305 ? TD/TT: 09/04/24 1345 ? Outside Plant Technician: ? Procedure Note Donotuseinterpreter, Image - 09/05/[address] [address] Fluoroscopy Report Signed Patient: Nick EscobarMR#: [id number] : 1960Acct:[id number] Age/Sex: 63 / MADM Date: 09/04/24 Loc: HO.SSS Attending Dr: Antwan Martinez MD, PhD Ordering Physician: Antwan Martinez MD, PhD Date of Service: 09/04/24 Procedure(s): FL guidance in OR Accession Number(s): [id number] cc: Stan Fletcher MD; Antwan Martinez MD, [...] 09/05/24 1359 DD/ 1305 TD/TT: 09/04/24 1345 Outside Plant Technician: [facility] External Provider IMG IR PROCEDURES Edited Result - Final * (ABNORMAL) Glucose, Whole Blood (09/04/2024 12:42 PM EST) Glucose, Whole Blood 198(H) 60 - 115 mg/dL [facility] Comment:METER #: [id number] 09/04/2024 12:4 2 PM EST 09/04/2024 12:45 PM EST us Generic External Data Provider LAB BLOOD ORDERAB LES Final Result [facility] [address] [place] [address] [phone] * (ABNORMAL) Cologuard?? colon cancer screening (12/06/2023 7:58 AM EDT) Cologuard Result Positive( A) Negative 12/13/2023 5:48 PM EDT [facility] (CLIA #:[id number]) Comment: POSITIVE TEST RESULT. A positive Cologuard [...] (Saritha Otto al, N Engl J Med 2014;370(14):3819-4029.) Cologuard may produce a false negative or false positive result (no colorectal cancer or precancerous polyp present at colonoscopy follow up). A negative Cologuard test result does not guarantee the absence of CRC or advanced adenoma (pre-cancer). The current Cologuard screening interval is every 3 years. ([place] [employer] Society and U.S. Multi-Society Task Force). Cologuard performance data in a 10,000 patient pivotal study using colonoscopy as the reference method can be accessed at the following location: [email or web address]results. Additional description of the Cologuard test process, warnings and precautions can be found at www.Ivycorpoguard.com. Stool specimen (specimen) Rectal contents / Unknown 12/06/2023 7:58 AM EDT 12/07/2023 10:55 AM EDT Stan Fletcher MD LAB MOLECULAR DIAGNOSTICS O RDERABLES Final Result [facility] (CLIA #:[id number]) [place] [address], from Last 3 Months or Most Recently Relevant to Health Maintenance Insurance [address] [address] [facility] DUAL COMPLETE HMO High [address] [address] Care Teams Powerhouse Mechanic Apprentice Relationship Specialty Start Date End Date Stan Fletcher MD [address] [place] [address] PCP - General Internal Medicine 08/20/18
--- OUTSIDE RECORDS SUMMARY | 2024-12-03 10:18 | XMS_ITS | Encounter Summary ---
Author Organization [employer] Address [address] [facility] 7 [place] [address] Care Team Providers Care Java Groovy Developer Name Role Phone Stan Fletcher MD Primary Care Provider [phone] Encounter Details Date Type Department Care Team ([facility] st Contact Info) Description 11/12/2024 Orders Only [facility] [address] [place] [address] Provider, MD Marcelle Social History Tobacco Use [...] Description 02/10/2025 10:00 AM EDT Office Visit [facility] [address] [place] [address] Stan Fletcher MD [address] [place] [address] documented as of this encounter Procedures Procedure [...] documented as of this encounter Care Teams Java Groovy Developer Relationship Specialty Start Date End Date Stan Fletcher MD [address] [place] [address] PCP - General Internal Medicine 08/20/18 documented as of this encounter
--- OUTSIDE RECORDS SUMMARY | 2024-12-03 10:18 | XMS_ITS | Encounter Summary ---
Author Organization [employer] Address [address] [place] [address] Care Team Providers Care Digital Pre Press Operator Name Role Phone Stan Fletcher MD Primary Care Provider [phone] Reason for Referral * Consultation (Routine) - Pending Review Specialty Diagnoses / Procedures Referred By Contivan t Referred To Contact Gastroenterology Diagnoses Positive colorectal cancer screening using Cologuard test Stan Fletcher MD [address] [place] [address] Phone: tel: fax: Neli Jaeger MD [address] [place] [address] Phone: tel: fax: Referral ID Status Reason Start Date Expiration Date Visits Requested Visits Authorized [id number] Pending Review Specialty Services Required 12/14/2023 12/13/2024 1 1 Encounter Details Date Type Department Care Team ([facility] Contact Info) Description 12/14/2023 Orders Only [facility] [address] [place], [place] [phone] Stan Fletcher MD [address] [place] [address] Positive colorectal cancer screening using Cologuard test [...] Upcoming Encounters Date Type Department Care Team ([facility] st Contact Info) Description 02/10/2025 10:00 AM EDT Office Visit [facility] [address] [place] [address] Stan Fletcher MD [address] [place] [address] Scheduled Referrals Name Type Priority Associated Diagnoses [...] documented as of this encounter Care Teams Digital Pre Press Operator Relationship Specialty Start Date End Date Stan Fletcher MD [address] [place] [address] PCP - General Internal Medicine 08/20/18 documented as of this encounter
--- OUTSIDE RECORDS SUMMARY | 2024-12-03 10:18 | XMS_ITS | Encounter Summary ---
Author Organization [employer] Address [address] [place] [address] Care Team Providers Care Ribbon Sweatband Operator Name Role Phone Stan Fletcher MD Primary Care Provider [phone] Reason for Visit * Reason Onset Date Comments Nurse Triage 08/23/2023 Encounter Details Date Type Department Care Team ([facility] st Contact Info) Description 08/23/2023 Telephone [facility] [address] [place], [place] [phone] Stan Fletcher MD [address] [place] [address] Nurse Triage Social History Tobacco Use Types [...] 3:50 PM EST Called pt. Back via exercise physiologist #[id number]. Called pt. Asked him if he has any Covid tests at home to test himself for Covid. Pt. States he has a test at home but, he currently at Pharmacy picking up some OTC cough medicine. I will call pt. Back at 430pm to see what Covid test result is as pt. States he lives [place] [facility]. Called pt. Back via exercise physiologist #[id number]. Pt. Took Covid test and it came out Negative. Pt. ShowedASL helper animal laboratory over video and she states that only the control line is showing and only 1 line on home Covid test. Advised pt. That per Dr. Fletcher he would like pt. To go to Walk in at [facility] tomorrow 08/23/2023 in the am to get his lungs listened to and to assess left lung congestion. Pt. States understanding and will go to walk in at [facility] at 830am when walk in opens. * Telephone Encounter - Vivi Salazar RN - 08/23/2023 2:53 PM EST Called pt. Back via exercise physiologist. Tie Inspector #[id number]. Pt. States that he has a productive [...] accepted this outcome Please contact pt @ [phone] Sign Language documented in this encounter Plan of Treatment Upcoming Encounters Date Type Department Care Team ([facility] st Contact Info) Description 02/10/2025 10:00 AM EDT Office Visit [facility] [address] [place] [address] Stan Fletcher MD [address] [place] [address] documented as of this encounter Visit Diagnoses Not on filedocumented in this encounter Care Teams Ribbon Sweatband Operator Relationship Specialty Start Date End Date Stan Fletcher MD [address] [place] [address] PCP - General Internal Medicine 08/20/18 documented as of this encounter
== END 2024-12-03 09:22 | disposition home or self-care (01) ==
LOC: HO.NEURO 09:21
PROVIDERS: PCP Internal Medicine; Visit Provider Orthopaedic Surgery
DX: G56.11 Other lesions of median nerve, right upper limb (principal); R20.0 Anesthesia of skin; R20.2 Paresthesia of skin
CPT/HCPCS: 95860; 95886; 95909

== ENCOUNTER → 2024-12-03 09:25 | Outpatient (BNV) | payer MEDICARE, MEDICAID, SELFPAY | PROVIDERS: PCP Internal Medicine; Visit Provider Physical Medicine & Rehabilitation | DX: G56.01 Carpal tunnel syndrome, right upper limb (principal) | CPT/HCPCS: 95886; 95909 ==

== ENCOUNTER 2024-12-05 09:50 | Outpatient (AMB) | payer MEDICARE, MEDICAID, SELFPAY ==
--- NOTE | 2024-12-05 10:08 | A.SPINEOV_ITS ---
Intake Visit Reasons: MRI f/up - ASL Intake Note: Mr. Escobar is here today to F/u on the results of his MRI. 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 park interpreter [id number] was used for this visit. His MRI done here at [facility] was reviewed with Dr. Martinez and this shows he has adjacent segment disease at L3-4 with progressing stenosis which is moderate to severe at this point. The patient's symptoms currently as he describes them are low back pain with standing and walking which radiates down the front of both of his legs going into his ankles. He also can get numbness down the back of his legs at times as well. If he is sitting down it seems to be okay but he does have trouble sleeping at night. He has been taking anti-inflammatories and it does not seem to help. I examined him again today and he is able to stand up on his own, but he does have a lot of discomfort with standing. His strength is normal in the lower extremities, but he does have diminished reflexes at the patella. We are willing to offer him an L3-4 oblique lumbar interbody fusion for adjacent segment disease with revision of posterior instrumentation. Dr. Martinez does not think the degeneration at L5-S1 is enough to justify fusion at this point. I reviewed the procedure, risks, benefits at length again with the patient. He is familiar with it because he has had it in the past at L4-5. He understands there some risk of adjacent segment disease down the road with the extension of the fusion but given the amount of pain he is in now and currently being unable to work, he is very frustrated with his quality of life. The only missing piece here is to physical therapy. As we understand it, the insurance companies will not allow us to proceed with surgery until this is completed so I gave him a new p rescription for that, told him to complete as much as he can or have the therapist sign off on the fact that he is no longer making progress and come back and we could submit for surgery once it is completed. I do not expect the therapy to help at all, but again this is strictly being done because of the persistence of the insurance companies about completing it before surgery. 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
--- OUTSIDE RECORDS SUMMARY | 2024-12-05 10:30 | XMS_ITS | Encounter Summary ---
Author Organization [employer] Address [address] [place] [address] Care Team Providers Care Tire Building Supervisor Name Role Phone Stan Fletcher MD Primary Care Provider [phone]- [phone] Encounter Details Date Type Department Care Team ([facility] Contact Info) Description 07/16/2023 Orders Only [facility] MED [facility] [address] [place] [address] Stan Fletcher MD [address] [place] [address] Social History Tobacco Use Types Packs/Day Years [...] Upcoming Encounters Date Type Department Care Team ([facility] Contact Info) Description 02/10/2025 10:00 AM EDT Office Visit [facility] [address] [place], [place] [phone] Stan Fletcher MD [address] [place] [address] documented as of this encounter Procedures Procedure [...] [facility] ?[address] ?[place] [address] ? Magnetic Resonance Report ? Signed ? Patient: Labrecrasheed,Nick ?MR#: [id number] ?? [id number] ? : 1960 ?Acct:[id number] ? Age/Sex: 62 / M ?ADM Date: 08/07/23 ? Loc: HO.MRI ? Attending Dr: Eddie Lawler MD ? Ordering Physician: Eddie Lawler MD ?? Date of Service: 08/07/23 ?? Procedure(s): MR shoulder LT wo con ?? Accession Number(s): [id number] ? cc: Stan Fletcher MD; Eddie Lawler MD ? EXAMINATION: ?? MR SHOULDER WITHOUT CONTRAST, LEFT ? CLINICAL INFORMATION: ?? Posterior left shoulder and arm pain since 06/23/2023. Impingement ?? syndrome. ? COMPARISON: ?? Left shoulder radiographs dated 06/26/2023. ? TECHNIQUE: ?? MRI of the shoulder was performed using routine sequences on a ?? high-field scanner. ? FINDINGS: ? ROTATOR CUFF: Winl-ob-kcsskupi supraspinatus tendinosis with anterior ?? bursal surface [...] LT wo con ?? IMPRESSION: ?? 1. Hrgu-oq-owmenjhr supraspinatus tendinosis with anterior bursal ?? surface [...] 1526 ? DD/ 0815 ? TD/TT: ? Human Resources Analyst: SR ? Procedure Note Eugenio Casey - 08/07/2023 [place] [id number] [facility] [place] [address] Magnetic Resonance Report Signed Patient: Nick Escobar#: [id number] : 1960Acct:[id number] Age/Sex: 62 / MADM Date: 08/07/23 Loc: HO.MRI Attending Dr: Eddie Lawler MD Ordering Physician: Eddie Lawler MD Date of Service: 08/07/23 Procedure(s): MR shoulder LT wo con Accession Number(s): [id number] cc: Stan Fletcher MD; Eddie Lawler MD EXAMINATION: MR SHOULDER WITHOUT CONTRAST, LEFT CLINICAL INFORMATION: Posterior left shoulder and arm pain since 06/23/2023. Impingement syndrome. COMPARISON: Left shoulder radiographs dated 06/26/2023. TECHNIQUE: MRI of the shoulder was performed using routine sequences on a high-field scanner. FINDINGS: ROTATOR CUFF: Lpmc-nj-evwtigte supraspinatus tendinosis with anterior bursal surface fraying [...] MR/MR shoulder LT wo con IMPRESSION: 1. Lnli-fb-flcayyeu supraspinatus tendinosis with anterior bursal surface fraying [...] in OV> 08/07/23 1526 DD/ 0815 TD/TT: Human Resources Analyst: SR [facility] External Provider IMG MRI PROCEDURES Final Result documented in this encounter Visit Diagnoses Not on filedocumented in this encounter Care Teams Tire Building Supervisor Relationship Specialty Start Date End Date Stan Fletcher MD [address] [place] [address] PCP - General Internal Medicine 08/20/18 documented as of this encounter
--- OUTSIDE RECORDS SUMMARY | 2024-12-05 10:30 | XMS_ITS | Encounter Summary ---
Author Organization [employer] Address [address] [place] [address] Care Team Providers Care Pulpwood Contractor Name Role Phone Stan Fletcher MD Primary Care Provider [phone] Reason for Visit * Reason Onset Date Comments Durable Medical Equipment 01/26/2023 Encounter Details Date Type Department Care Team ([facility] Contact Info) Description 01/26/2023 Telephone [facility] [address] [place], [place] [phone] Stan Fletcher MD [address] [place] [address] Durable Medical Equipment Social History Tobacco Use [...] CCA. For clarification, please contact pt at [phone] (Sign language) documented in this encounter Plan of Treatment Upcoming Encounters Date Type Department Care Team ([facility] st Contact Info) Description 02/10/2025 10:00 AM EDT Office Visit [facility] [address] [place] [address] Stan Fletcher MD [address] [place] [address] documented as of this encounter Visit Diagnoses Diagnosis Type 2 diabetes mellitus without complication, with long-term current use of insulin ([facility])- Primary documented in this encounter Care Teams Pulpwood Contractor Relationship Specialty Start Date End Date Stan Fletcher MD [address] [place] [address] PCP - General Internal Medicine 08/20/18 documented as of this encounter
--- OUTSIDE RECORDS SUMMARY | 2024-12-05 10:30 | XMS_ITS | Encounter Summary ---
Author Organization [employer] Address [address] [facility] [address], [place] [address] Care Team Providers Care Assistant Clinical Director Name Role Phone Stan Fletcher MD Primary Care Provider [phone] Reason for Visit * Reason Onset Date Comments Med Refill 11/05/2023 Encounter Details Date Type Department Care Team ([facility] Contact Info) Description 11/05/2023 Telephone [facility] MEDICINE [address] [place] [address] Stan Fletcher MD [address] [place], [place] [phone] Med Refill Social History Tobacco Use Types [...] 1:59 PM EDT Tc from [facility] at [facility] requesting scripts for Continuous Blood Gluc Uranium Processing Supervisor (FreeStyle Cathryn 2 Trevett) device ,Continuous Blood Gluc Sensor (FreeStyle Cathryn 2 Sensor) misc and Precision Anjel Test Stripsit can be Faxed to [phone] documented in this encounter Plan of Treatment Upcoming Encounters Date Type Department Care Team (Late st Contact Info) Description 02/10/2025 10:00 AM EDT Office Visit [facility] MED & PEDS [address] [place] [address] Stan Fletcher MD [address] [place] [address] documented as of this encounter Visit Diagnoses Not on filedocumented in this encounter Care Teams Assistant Clinical Director Relationship Specialty Start Date End Date Stan Fletcher MD [address] [place] [address] PCP - General Internal Medicine 08/20/18 documented as of this encounter
--- OUTSIDE RECORDS SUMMARY | 2024-12-05 10:30 | XMS_ITS | Encounter Summary ---
Author Organization [employer] Address [address] [place] [address] Care Team Providers Care Hobbing Press Operator Name Role Phone Stan Fletcher MD Primary Care Provider [phone] Encounter Details Date Type Department Care Team ([facility] Contact Info) Description 08/23/2023 Orders Only [facility] MED & PEDS [address] [place] [address] Stan Fletcher MD [address] [place] [address] Social History Tobacco Use Types Packs/Day Years [...] Upcoming Encounters Date Type Department Care Team ([facility] Contact Info) Description 02/10/2025 10:00 AM EDT Office Visit [facility] MED & PEDS [address] [place] [address] Stan Fletcher MD [address] [place] [address] documented as of this encounter Visit Diagnoses Not on filedocumented in this encounter Care Teams Hobbing Press Operator Relationship Specialty Start Date End Date Stan Fletcher MD [address] [place], [place] [address] [place] [address] PCP - General Internal Medicine 08/20/18 documented as of this encounter
--- OUTSIDE RECORDS SUMMARY | 2024-12-05 10:30 | XMS_ITS | Encounter Summary ---
Author Organization [employer] [facility] Address [address] [place] [address] Care Team Providers Care Hull And Deck Remover Name Role Phone Stan Fletcher MD Primary Care Provider [phone] Reason for Visit * Reason Comments Med Refill Encounter Details Date Type Department Care Team ([facility] Contact Info) Description 03/20/2023 Refill [facility] MED & PEDS [address] [place] [address] Stan Fletcher MD [address] [place] [address] Type 2 diabetes mellitus with hyperglycemia, with long-term current use of insulin ([facility]) Social History Tobacco Use Types Packs/Day [...] Care Team ([facility] Contact Info) Description 02/10/2025 10:00 AM EDT Office Visit [facility] MED & PEDS [address] [place] [address] Stan Fletcher MD [address] [place] [address] documented as of this encounter Visit Diagnoses Diagnosis Type 2 diabetes mellitus with hyperglycemia, with long-term current use of insulin ([facility]) documented in this encounter Care Teams Hull And Deck Remover Relationship Specialty Start Date End Date Stan Fletcher MD [address] [place] [address] PCP - General Internal Medicine 08/20/18 documented as of this encounter
--- OUTSIDE RECORDS SUMMARY | 2024-12-05 10:30 | XMS_ITS | Encounter Summary ---
Author Organization [employer] Address [address] [place] [address] Care Team Providers Care Account Executive Software Sales Name Role Phone Stan Fletcher MD Primary Care Provider [phone] Reason for Visit * Reason Onset Date Comments Nurse Triage 08/23/2023 Encounter Details Date Type Department Care Team ([facility] st Contact Info) Description 08/23/2023 Telephone [facility]EDS [address] [place], [place] [phone] Stan Fletcher MD [address] [place] [address] Nurse Triage Social History Tobacco Use Types [...] 3:50 PM EST Called pt. Back via information systems architect #[id number]. Called pt. Asked him if he has any Covid tests at home to test himself for Covid. Pt. States he has a test at home but, he currently at Pharmacy picking up some OTC cough medicine. I will call pt. Back at 430pm to see what Covid test result is as pt. States he lives [place] [address] from [facility]. Called pt. Back via information systems architect #[id number]. Pt. Took Covid test and it came out Negative. Pt. ShowedASL flat optical element maker over video and she states that only the control line is showing and only 1 line on home Covid test. Advised pt. That per Dr. Fletcher he would like pt. To go to Walk in at [facility] tomorrow 08/23/2023 in the am to get his lungs listened to and to assess left lung congestion. Pt. States understanding and will go to walk in at [facility] at 830am when walk in opens. * Telephone Encounter - Vivi Salazar RN - 08/23/2023 2:53 PM EST Called pt. Back via information systems architect. Pluck Trimmer #[id number]. Pt. States that he has a productive [...] accepted this outcome Please contact pt @ [phone] Sign Language documented in this encounter Plan of Treatment Upcoming Encounters Date Type Department Care Team ([facility] st Contact Info) Description 02/10/2025 10:00 AM EDT Office Visit [facility] MED & PEDS [address] [place] [address] Stan Fletcher MD [address] [place] [address] documented as of this encounter Visit Diagnoses Not on filedocumented in this encounter Care Teams Account Executive Software Sales Relationship Specialty Start Date End Date Stan Fletcher MD [address] [place] [address] PCP - General Internal Medicine 08/20/18 documented as of this encounter
--- OUTSIDE RECORDS SUMMARY | 2024-12-05 10:30 | XMS_ITS | Data Portability ---
Author Organization [employer] [facility], [employer] Address [address] [place] [phone] Care Team Providers Care Historic Interpreter Name Role Phone [facility] Referring Provider Assessment No assessment recorded. Plan of Treatment Reminders Order Date Submit Date Provider Last Modified By Organization Details Last Modified Time Details Appointments None recorded. Lab None recorded. Referral None recorded. Procedures None recorded. Surgeries None recorded. Imaging None recorded. Medication Orders azithromyci n 250 mg tablet 2022 [facility] #[id number], [address] [place], [address], 10:33:17 Flovent HFA 44 mcg/actuati on aerosol inhaler 2022 023 [facility]/Pharmacy #[id number], [address] [place], [address], 10:33:17 Patient TargetsNo targets recorded. Patient InstructionsNo [...] SNOMED-CT Code Diagnosis ICD10 Code Diagnosis Note [id number] Kiana Rojas MD Main - instED [address] [place] [phone] 05/23/2023 10:14:23 05/24/2023 00:31:53 Cough [id number] R05.9 I provided real -time medical direction via phone for this encounter, and was available for additional phone based assistance as needed. I have reviewed and agree with the Assessment and Plan as documented by the Electroencephalographic Technician. Patient given the opportunit y to ask [...] Liang Member ID Guarantor Name 05/23/2023 1 [facility] - DOS ON OR AFTER 2022 - DUAL ELIGIBLE - HALF-WAY OPTIONS AND ONE CARE (MEDICARE REPLACEMENT/AD VANTAGE - HMO) Nick Escobar [id number] Nick Escobar Notes Date Note Type Note [...] Advised no further Prednisone until evaluated by [facility] vegetables cook. ................... ................... ................... ................... ................... ................... ................... ........ CRC Nursing Assessment: Comments: Reviewed = Deuce VASQUES ................... ................... ................... ................... ................... ................... ................... ........ Electroencephalographic Technician Note From Isaiah Green: Pt reports that [...] ........ Disposition: Fulfilled Kiana Rojas MD [address] [facility],[address], [place], [address], [employer] 05/23/2023 23:34:00
--- OUTSIDE RECORDS SUMMARY | 2024-12-05 10:31 | XMS_ITS | Encounter Summary ---
Author Organization [employer] [facility] Address [address] [place] [address] Care Team Providers Care Electrical Engineering Teacher Name Role Phone Stan Fletcher MD Primary Care Provider [phone] Reason for Visit * Reason Comments Med Refill Encounter Details Date Type Department Care Team ([facility] Contact Info) Description 08/29/2022 Refill [facility] MED & PEDS [address] [place] [address] Stan Fletcher MD [address] [place] [address] Chronic pain syndrome Social History Tobacco Use [...] Upcoming Encounters Date Type Department Care Team ([facility] Contact Info) Description 02/10/2025 10:00 AM EDT Office Visit [facility] MED & PEDS [address] [place] [address] Stan Fletcher MD [address] [place] [address] documented as of this encounter Visit Diagnoses Diagnosis Chronic pain syndrome documented in this encounter Care Teams Electrical Engineering Teacher Relationship Specialty Start Date End Date Stan Fletcher MD [address] [place] [address] PCP - General Internal Medicine 08/20/18 documented as of this encounter
--- OUTSIDE RECORDS SUMMARY | 2024-12-05 10:31 | XMS_ITS | Encounter Summary ---
Author Organization [employer] Address [address] [facility] 7[place] [address] Care Team Providers Care Data Collector Name Role Phone Stan Fletcher MD Primary Care Provider [phone] Reason for Visit * Reason Onset Date Comments Med Refill 12/04/2024 Encounter Details Date Type Department Care Team ([facility] Contact Info) Description 12/04/2024 Telephone [facility] MEDICINE [address] [place] [address] Stan Fletcher MD [address] [place], [place] [phone] Med Refill Social History Tobacco Use Types [...] encounter Miscellaneous Notes * Telephone Encounter - Gloria Winkler RN - 12/04/2024 3:41 PM EDT Spoke with signal person, she asked that we call back at 3:55. RN states she could not promise a call at 3:55, but I would try. IF not, he'll get another call tomorrow. * Telephone Encounter - Radha Gallardo - 12/04/2024 3:33 PM EDT Tc from pt call to verify call about the prescribed medicine documented in this encounter Plan of Treatment Upcoming Encounters Date Type Department Care Team (Late st Contact Info) Description 02/10/2025 10:00 AM EDT Office Visit [facility] MED [facility] PEDS [address] [place] [address] Stan Fletcher MD [address] [place] [address] documented as of this encounter Visit Diagnoses Not on filedocumented in this encounter Additional Health Concerns Assessment Noted Time PHQ-9 Depression Total Score: 0 11/06/19 25 9:29 AM EDT documented as of this encounter Care Teams Data Collector Relationship Specialty Start Date End Date Stan Fletcher MD [address] [place] [address] PCP - General Internal Medicine 08/20/18 documented as of this encounter
--- OUTSIDE RECORDS SUMMARY | 2024-12-05 10:31 | XMS_ITS | Encounter Summary ---
Author Organization [employer] Address [address] [place] [address] Care Team Providers Care Purchasing And Claims Supervisor Name Role Phone Stan Fletcher MD Primary Care Provider [phone] Reason for Referral * Consultation (Routine) - Pending Review Specialty Diagnoses / Procedures Referred By Contivan t Referred To Contact Gastroenterology Diagnoses Positive colorectal cancer screening using Cologuard test Stan Fletcher MD [address] [place] [address] Phone: tel: fax: Neil Jaeger MD [address] [place] [address] Phone: tel: fax: Referral ID Status Reason Start Date Expiration Date Visits Requested Visits Authorized [id number] Pending Review Specialty Services Required 12/14/2023 12/13/2024 1 1 Encounter Details Date Type Department Care Team ([facility] Contact Info) Description 12/14/2023 Orders Only [facility] MED & PEDS [address] [place], [place] [phone] Stan Fletcher MD [address] [place] [address] Positive colorectal cancer screening using Cologuard test [...] Upcoming Encounters Date Type Department Care Team ([facility] st Contact Info) Description 02/10/2025 10:00 AM EDT Office Visit [facility] MED & PEDS [address] [place] [address] Stan Fletcher MD [address] [place] [address] Scheduled Referrals Name Type Priority Associated Diagnoses [...] documented as of this encounter Care Teams Purchasing And Claims Supervisor Relationship Specialty Start Date End Date Stan Fletcher MD [address] [place] [address] PCP - General Internal Medicine 08/20/18 documented as of this encounter
--- OUTSIDE RECORDS SUMMARY | 2024-12-05 10:31 | XMS_ITS | Encounter Summary ---
Author Organization [employer] Address [address] [place] [address] Care Team Providers Care Polish Maker Name Role Phone Stan Fletcher MD Primary Care Provider [phone] Reason for Visit * Reason Comments Med Refill Encounter Details Date Type Department Care Team ([facility] Contact Info) Description 01/09/2023 Refill [facility] MED & PEDS [address] [place] [address] Stan Fletcher MD [address] [place] [address] Social History Tobacco Use Types Packs/Day Years [...] Office Visit [facility] MED & PEDS [address] [place] [address] Stan Fletcher MD [address] [place] [address] documented as of this encounter Visit Diagnoses Not on filedocumented in this encounter Care Teams Polish Maker Relationship Specialty Start Date End Date Stan Fletcher MD [address] [place] [address] PCP - General Internal Medicine 08/20/18 documented as of this encounter
--- OUTSIDE RECORDS SUMMARY | 2024-12-05 10:31 | XMS_ITS | Encounter Summary ---
Author Organization [employer] Address [address] [facility] [address] [address] Care Team Providers Care Desktop Administrator Name Role Phone Stan Fletcher MD Primary Care Provider [phone] Reason for Visit * Reason Comments Med Refill Encounter Details Date Type Department Care Team ([facility] Contact Info) Description 12/04/2024 Refill [facility] MED & PEDS [address] [place], [place] [phone] Stan Fletcher MD [address] [place] [address] Right sided sciatica Social History Tobacco Use [...] Description 02/10/2025 10:00 AM EDT Office Visit [facility] MED & PEDS [address] [place] [address] Stan Fletcher MD [address] [place] [address] documented as of this encounter Visit Diagnoses Diagnosis Right sided sciatica Sciatica documented in this encounter Additional Health Concerns Assessment Noted Time PHQ-9 Depression Total Score: 0 11/06/19 25 9:29 AM EDT documented as of this encounter Care Teams Desktop Administrator Relationship Specialty Start Date End Date Stan Fletcher MD [address] [place] [address] PCP - General Internal Medicine 08/20/18 documented as of this encounter
--- OUTSIDE RECORDS SUMMARY | 2024-12-05 10:31 | XMS_ITS | Clinical Summary ---
Author Organization [employer] Address [address] [place] [address] 7 [place] [address] Care Team Providers Care Furnace Cooler Name Role Phone Stan Fletcher MD Primary Care Provider [phone] [phone] Allergies Active Allergy Reactions Criticality Noted Date [...] mL 11 2022 Active Continuous Blood Gluc Metal Sponge Making Machine Operator (FreeStyle Cathryn 2 [place]) deviceIndications:Type 2 diabetes mellitus without complication, with long-term current use of insulin ([facility]) To use daily 1 each 2022 Active Continuous Blood Gluc Sensor (FreeStyle Cathryn 2 Sensor) miscIndications:Type 2 diabetes mellitus without complication, with long-term current use of insulin ([facility]) To use daily 2 each 11 [...] hyperglycemia, with long-term current use of insulin ([facility]) INJECT 12 UNITS SUBCUTANEOUSLY THREE TIMES [...] complication, with long-term current use of insulin ([facility]) Inject 12 Units as directed 3 [...] 60 capsule 11 03/31 Active Continuous Glucose Metal Sponge Making Machine Operator (FreeStyle Cathryn 2 [place]) deviceIndications:Type 2 diabetes mellitus without complication, with long-term current use of insulin ([facility]) Scan sensor every 8 hours 1 each 2023 Active Continuous Glucose Sensor (FreeStyle Cathryn 2 Sensor) miscIndications:Type 2 diabetes mellitus without complication, with long-term current use of insulin ([facility]) Apply 1 sensor every 14 days 2 each 2023 Active glucose blood (FreeStyle Precision Anjel Test) test stripIndications:Type 2 diabetes mellitus without complication, with long-term current use of insulin ([facility]) Use to test blood sugar 4 [...] 30 mL 11 2023 Active TechLite Pen [place] 32G X 6 MM [facility] USE FOUR TIMES DAILY] 100 each 11 2023 Active gabapentin (Neurontin) 300 MG capsule TAKE ONE CAPSULE THREE TIMES DAILY 180 capsule 5 2024 Active nabumetone (Relafen) 750 MG tabletIndications:Acut e pain of left shoulder TAKE ONE TABLET TWICE DAILY 60 tablet 5 2024 Active oxyCODONE-acetaminophe n (Percocet) 7.5-325 MG [...] by mouth Once per day. 30 tablet 11/05 Active tiZANidine (Zanaflex) 4 MG tabletIndications:Righ t sided sciatica TAKE ONE TABLET EVERY 6 TO 8 HOURS NEEDED. NO MORE THAN THREE TABLETS PER 24 HOURS 60 tablet 1 2024 Active tiZANidine (Zanaflex) 4 MG tabletIndications:Righ t sided sciatica TAKE ONE TABLET EVERY 6 TO 8 HOURS NEEDED. NO MORE THAN THREE TABLETS PER 24 HOURS 60 tablet 1 12/04 Discontinued Active Problems Problem Noted Date Diagnosed [...] Encounters Date Type Department Care Team Description 12/04/2024 Telephone [facility] [address] [place] [address] [id number] Stan Fletcher MD Med Refill 12/04/2024 Refill [facility] [address] [place] [address] Stan Fletcher MD Right sided sciatica 11/12/2024 10:45 AM EDT Office Visit [facility] [address] [place] [address] Stan Fletcher MD Primary hypertension (Primary Dx); Type 2 diabetes mellitus without complication, with long-term current use of insulin ([facility]); Annual physical exam 11/12/2024 Orders Only [employer] [address] [place], [place] [id number] Marcelle Lambert MD 11/12/2024 Travel 11/11/2024 Telephone [facility] [address] [place], [place] [phone] Stan Fletcher MD 11/05/2024 9:15 AM EDT Office Visit [facility] [address] [place] [address] Stan Fletcher MD Type 2 diabetes mellitus without complication, with long-term current use of insulin ([facility]) (Primary Dx); Herniation of intervertebral disc between L4 and L5; Primary hypertension; Dietary counseling; Exercise counseling; Class 1 obesity due to excess calories with serious comorbidity and body mass index (BMI) of 30.0 to 30.9 in adult 11/05/2024 Travel 11/04/2024 Telephone [facility] [address] [place] [address] Stan Fletcher MD Nurse Triage 09/30/[address] [address] Stan Fletcher MD Call Back Request 09/29/2024 Refill [facility] [address] [place] [address] Stan Fletcher MD Acute pain of left shoulder 09/21/2024 Refill [facility] [address] [place] [address] Stan Fletcher MD Right sided sciatica 09/11/2024 9:45 AM EST Office Visit [facility] [address] [place] [address] Stan Fletcher MD Herniation of intervertebral disc between L4 and L5 (Primary Dx); Anterolisthesis; Greater trochanteric bursitis of left hip; Type 2 diabetes mellitus without complication, with long-term current use of insulin ([facility]) 09/11/2024 Travel from Last 3 Months Immunizations Name Administration [...] is your housing situation today? I have briantonya pinzon 11/05/[address] you [...] the past 12 months, has t he [employer], gas, oil or water company threatened to [...] Upcoming Encounters Date Type Department Care Team ([facility] st Contact Info) Description 02/10/2025 10:00 AM EDT Office Visit [facility] [address] [place] [address] Stan Fletcher MD [address] [place] [address] Health Maintenance Due Date Last Done Comments CT Colonography 1962 Colonoscopy 1962 FIT 1962 FOBT 1962 Sigmoidoscopy 1962 Hepatitis C Screening 1980 COVID-19 Vaccine ( season) 2024 08/23/2023, 06/10/2022, 07/18/2021, Additional history exists Diabetes: Hemoglobin A1C 12/10/20242 025, 08/25/2024, 03/31/2024, Additional history exists Diabetes: [...] complication, with long-term current use of insulin ([facility]) POCT GLUCOSE Routine 11/12/2024 10:49 AM EDT Type 2 diabetes mellitus without complication, with long-term current use of insulin ([facility]) HM DIABETES EYE EXAM Routine 11/11/2024 4:01 PM EDT ALBUMIN, RANDOM URINE W/CREATININE Routine 11/05/2024 10:17 AM EDT Type 2 diabetes mellitus without complication, with long-term current use of insulin ([facility]) POCT GLYCATED HEMOGLOBIN, TOTAL Routine 09/11/2024 10:40 AM EST Type 2 diabetes mellitus without complication, with long-term current use of insulin (CMS/HCC) POCT GLUCOSE Routine 09/11/2024 10:39 AM EST Type 2 diabetes mellitus without complication, with long-term current use of insulin (CMS/HCC) LAB COLOGUARD?? COLON CANCER SCREEN Routine 12/06/2023 7:58 AM EDT Screening for colon cancer from Last 3 Months or Most Recently Relevant to Health Maintenance Results * (ABNORMAL) Lipid Panel, Standard (11/12/2024 11:34 AM EDT) Triglycerides 176(H) <150 mg/dL [facility] Comment:Desirable Triglyceri de: less than 150 mg/dLBorderline High Triglyceride 150-199 mg/dLHigh Triglyceride: 200-499 mg/dLVery High Triglyceride: greater than or equal to 5OO mg/dL Cholesterol 116 <200 mg/dL [facility] Comment:Desirable Cholestero l: less than 200 mg/dLBorderline High Cholesterol: 200-239 mg/dLHigh Cholesterol: greater than 239 mg/dL LDL Cholesterol Calculated 49 <100 mg/dL [facility] Comment:Desirable LDL: less than 100 mg/dLNear Optimal/Above Optimal LDL: 110- 129 mg/dLBorderline High LDL: 130-159 mg/dLHigh LDL: 160-189 mg/dLVery High LDL: greater than or equal to 190 mg/dL HDL Cholesterol 32(L) >40 mg/dL [facility] Comment:Desirable HDL: great er than 40 mg/dL Note: This HDL assay may give artificially low results in patients with liver disease. Blood Venous blood specimen / Unknown 11/12/2024 11:34 AM EDT 11/12/2024 2:15 PM EDT us Stan Fletcher MD LAB BLOOD ORDERABLES Final Result [facility] [address] [place] [address] [phone] * POCT glucose manually resulted (11/12/2024 10:49 AM EDT) Only the most recent of2 resultswithin the time period is included. Glucose Blood, POC 135 60 - 200 mg/dL QC Media Lot # Comment:[id number] Lot# Expiration Date Comment:02/19/2025 Blood Capillary blood specimen / Unknown 11/12/2024 10:49 AM EDT Stan Fletcher MD POINT OF CARE TEST ENTER/ED IT ORDERABLES Final Result * Diabetes Eye Exam (11/11/2024 4:01 PM EDT) Historical Provider HEALTH MAINTENANCE Final Result * Albumin, Random Urine W/Creatinine (11/05/2024 10:17 AM EDT) Creatinine, Urine 98.24 mg/dL [facility] Microalbumin Urine 20.0 mg/L [facility] Microalbum Creatinine Ratio Ur 20.3 <30 ug/mg cr [facility] Comment:Albumin/Creatinine R atio Reference Ranges: Normal: < 30 ug/mg creatinine Microalbuminuria: 30 - 300 ug/mg creatinineClinical Albuminuria: > 300 ug/mg creatinine Urine (Urine, Random) 11/05/2024 10:17 AM EDT 11/05/2024 2:07 PM EDT Stan Fletcher MD LAB URINE ORDERABLES Final Result [facility] [address] [place] [phone] * (ABNORMAL) POCT HGB A1C (09/11/2024 10:40 AM EST) Hemoglobin A1C 8.0(A) 4.0 - 6.0 % QC Media Lot # [id number] Lot# Expiration Date [id number] Blood 09/11/2024 10:4 0 AM EST us Stan Fletcher MD POINT OF CARE TEST ENTER/ED IT ORDERABLES Final Result * (ABNORMAL) Cologuard?? colon cancer screening (12/06/2023 7:58 AM EDT) Cologuard Result Positive( A) Negative 12/13/2023 5:48 PM EDT [facility] (CLIA #:[id number]) Comment: POSITIVE TEST RESULT. A positive Cologuard [...] Aguilar et al, N Engl J Med 2014;370(14):5979-2863.) Cologuard may produce a false negative or false positive result (no colorectal cancer or precancerous polyp present at colonoscopy follow up). A negative Cologuard test result does not guarantee the absence of CRC or advanced adenoma (pre-cancer). The current Cologuard screening interval is every 3 years. ([place] [employer] Society and U.S. Multi-Society Task Force). Cologuard performance data in a 10,000 patient pivotal study using colonoscopy as the reference method can be accessed at the following location: [email or web address].[email or web address]/results. Additional description of the Cologuard test process, warnings and precautions can be found at www.cologuard.com. Stool specimen (specimen) Rectal contents / Unknown 12/06/2023 7:58 AM EDT 12/07/2023 10:55 AM EDT us Stan Fletcher MD LAB MOLECULAR DIAGNOSTICS O RDERABLES Final Result [facility] (CLIA #:[id number]) [address] [place] [address], [place] [phone] from Last 3 Months or Most Recently Relevant to Health Maintenance Insurance [facility] [address] [place] [address] [place] [address] [place] [facility] [place] [address] Care Teams Furnace Cooler Relationship Specialty Start Date End Date Stan Fletcher MD [address] [place] [address] [place] [address] PCP - General Internal Medicine 08/20/18
--- OUTSIDE RECORDS SUMMARY | 2024-12-05 10:31 | XMS_ITS | Encounter Summary ---
Author Organization [employer] [facility] Address [address] [place] [address] Care Team Providers Care Staff Rn Name Role Phone Stan Fletcher MD Primary Care Provider [phone] Encounter Details Date Type Department Care Team ([facility] Contact Info) Description 08/03/2022 Telephone [facility] [address] [place] [address] Stan Fletcher MD [address] [place] [address] Social History Tobacco Use Types Packs/Day Years [...] Upcoming Encounters Date Type Department Care Team ([facility] Contact Info) Description 02/10/2025 10:00 AM EDT Office Visit [facility] [address] [place] [address] Stan Fletcher MD [address] [place] [address] documented as of this encounter Visit Diagnoses Not on filedocumented in this encounter Care Teams Staff Rn Relationship Specialty Start Date End Date Stan Fletcher MD [address] [place] [address] PCP - General Internal Medicine 08/20/18 documented as of this encounter
--- OUTSIDE RECORDS SUMMARY | 2024-12-05 10:31 | XMS_ITS | Encounter Summary ---
Author Organization [employer] Address [address] [facility] 7 [place] [address] Care Team Providers Care Check Writing Machine Operator Name Role Phone Stan Fletcher MD Primary Care Provider [phone] Encounter Details Date Type Department Care Team ([facility] st Contact Info) Description 11/12/2024 Orders Only [facility] [address] [place] [address] Provider, MD Marcelle Social History Tobacco Use [...] Description 02/10/2025 10:00 AM EDT Office Visit [facility] [address] [place] [address] Stan Fletcher MD [address] [place] [address] documented as of this encounter Procedures Procedure [...] documented as of this encounter Care Teams Check Writing Machine Operator Relationship Specialty Start Date End Date Stan Fletcher MD [address] [place] [address] PCP - General Internal Medicine 08/20/18 documented as of this encounter
--- OUTSIDE RECORDS SUMMARY | 2024-12-05 10:31 | XMS_ITS | Encounter Summary ---
Author Organization [employer] Address [address] [place] [address] Care Team Providers Care Children[employer] Caretaker Name Role Phone Stan Fletcher MD Primary Care Provider [phone] Reason for Referral * Imaging (STAT) - Closed Specialty Diagnoses / Procedures Referred By Contac t Referred To Contact Cardiology Diagnoses Palpitations Procedures Transthoracic Echo (TTE) Complete Stan Fletcher MD [address] [place] [address] Phone: tel: fax: [facility] Referral ID Status Reason Start Date Expiration Date V isits Requested Visits Authorized [id number] Closed Perform Procedure 12/11/2022 12/11/2023 1 1 Encounter Details Date Type Department Care Team ([facility] Contact Info) Description 12/07/2022 Orders Only [facility] MED & PEDS [address] [place] [address] Stan Fletcher MD [address] [place] [address] Palpitations (Primary Dx) Social History Tobacco Use [...] Upcoming Encounters Date Type Department Care Team ([facility] st Contact Info) Description 02/10/2025 10:00 AM EDT Office Visit [facility] MED & PEDS [address] [place] [address] Stan Fletcher MD [address] [place] [address] Scheduled Orders Name Type Priority Associated Diagnoses Order Schedule Transthoracic Echo (TTE) Complete Echocardiography STAT Palpitations Expected: 12/11/2022 (Approximate), Expires: 12/11/2024 documented as of this encounter Visit Diagnoses Diagnosis Palpitations- Primary documented in this encounter Care Teams [employer] Caretaker Relationship Specialty Start Date End Date Stan Fletcher MD [address] [place] [address] PCP - General Internal Medicine 08/20/18 documented as of this encounter
--- OUTSIDE RECORDS SUMMARY | 2024-12-05 10:31 | XMS_ITS | Encounter Summary ---
Author Organization [employer] Address [address] [place] [address] Care Team Providers Care Bandoleer Straightener Stamper Name Role Phone Stan Fletcher MD Primary Care Provider [phone] Encounter Details Date Type Department Care Team ([facility] Contact Info) Description 06/27/2023 Orders Only [facility] [address] [place] [address] Stan Fletcher MD [address] [place] [address] Acute pain of left shoulder (Primary Dx) [...] [facility] [address] [place], [place] [phone] Stan Fletcher MD [address] [place] [address] documented as of this encounter Visit Diagnoses Diagnosis Acute pain of left shoulder- Primary documented in this encounter Care Teams Bandoleer Straightener Stamper Relationship Specialty Start Date End Date Stan Fletcher MD [address] [place] [address] PCP - General Internal Medicine 08/20/18 documented as of this encounter
== END 2024-12-05 11:12 | disposition home or self-care (01) ==
LOC: HO.HNS 09:50
PROVIDERS: Visit Provider Physician Assistant
DX: M48.061 Spinal stenosis, lumbar region without neurogenic claudication (principal); M51.369 Other intervertebral disc degeneration, lumbar region without mention of lumbar back pain or lower extremity pain; Z98.1 Arthrodesis status
CPT/HCPCS: 99213

== ENCOUNTER → 2024-12-05 09:50 | Outpatient (BNVA) | payer MEDICARE, MEDICAID, SELFPAY | PROVIDERS: Visit Provider Physician Assistant | DX: M48.061 Spinal stenosis, lumbar region without neurogenic claudication (principal); M51.369 Other intervertebral disc degeneration, lumbar region without mention of lumbar back pain or lower extremity pain; Z98.1 Arthrodesis status | CPT/HCPCS: 99212 ==

== ENCOUNTER 2025-01-13 10:36 | Day surgery (SDC) | payer MEDICARE, MEDICAID, SELFPAY ==
--- OUTSIDE RECORDS SUMMARY | 2024-12-19 06:12 | XMS_ITS | Encounter Summary ---
Author Organization [employer] Address [address] [place] [address] [address], [place] [address] Care Team Providers Care Insulation Packer Name Role Phone Stan Fletcher MD Primary Care Provider [phone] Reason for Referral * Consultation (Routine) - Closed Specialty Diagnoses / Procedures Referred By Contac t Referred To Contact Gastroenterology Diagnoses Positive colorectal cancer screening using Cologuard test Stan Fletcher MD [address] [place] [address] Phone: tel: fax: Neli Jaeger MD [address] [place] [address] Phone: tel: fax: Referral ID Status Reason Start Date Expiration Date V isits Requested Visits Authorized [id number] Closed Specialty Services Required 12/14/2023 12/13/2024 1 1 Encounter Details Date Type Department Care Team ([facility] st Contact Info) Description 12/14/2023 Orders Only [facility] MED & PEDS [address] [place], [place] [phone] Stan Fletcher MD [address] [place], [place] [phone] Positive colorectal cancer screening using Cologuard test [...] 02/10/2025 10:00 AM EDT Office Visit [facility]ED[facility] [address] [place] [address] Stan Fletcher MD [address] [place] [address] Scheduled Referrals Name Type Priority Associated Diagnoses [...] documented as of this encounter Care Teams Insulation Packer Relationship Specialty Start Date End Date Stan Fletcher MD [address] [place] [address] PCP - General Internal Medicine 08/20/18 documented as of this encounter
--- OUTSIDE RECORDS SUMMARY | 2024-12-19 06:12 | XMS_ITS | Encounter Summary ---
Author Organization [employer] Address [address] [place] [address] Care Team Providers Care Sample Driller Name Role Phone Stan Fletcher MD Primary Care Provider [phone] Encounter Details Date Type Department Care Team ([facility] Contact Info) Description 08/23/2023 Orders Only [facility] P[facility]S [address] [place] [address] Stna Fletcher MD [address] [place] [address] Social History Tobacco Use Types Packs/Day Years [...] Upcoming Encounters Date Type Department Care Team ([facility] Contact Info) Description 02/10/2025 10:00 AM EDT Office Visit [facility] P[facility] [address] [place] [address] Stan Fletcher MD [address] [place] [address] documented as of this encounter Visit Diagnoses Not on filedocumented in this encounter Care Teams Sample Driller Relationship Specialty Start Date End Date Stan Fletcher MD [address] [place], [place] [address] [address] PCP - General Internal Medicine 08/20/18 documented as of this encounter
--- OUTSIDE RECORDS SUMMARY | 2024-12-19 06:12 | XMS_ITS | Encounter Summary ---
Author Organization [employer] Address [address] [facility] 7 [place] [address] Care Team Providers Care Tapper Operator Name Role Phone Stan Fletcher MD Primary Care Provider [phone] Encounter Details Date Type Department Care Team ([facility] st Contact Info) Description 12/18/2024 Telephone [facility] MED & PEDS [address] [place], [place] [phone] Stan Fletcher MD [address] [place] [address] Social History Tobacco Use Types Packs/Day Years [...] encounter Miscellaneous Notes * Telephone Encounter - Halley Wilson RN - 12/18/2024 10:13 AM EDT Paperwork received for Eversense implantable CGM. It is requesting PCP to fill out. Per prior discussion with PCP. PCP is unfamiliar with device and if it is medically necessary or possible. Please review and advise if maybe pt should be referred to Endo as they would be the ones who can do such procedure for implantable sensor. documented in this encounter Plan of Treatment Upcoming Encounters Date Type Department Care Team ([facility] st Contact Info) Description 02/10/2025 10:00 AM EDT Office Visit [facility] MED & PEDS [address] [place] [address] Stan Fletcher MD [address] [place] [address] documented as of this encounter Visit Diagnoses Not on filedocumented in this encounter Additional Health Concerns Assessment Noted Time PHQ-9 Depression Total Score: 0 11/06/19 25 9:29 AM EDT documented as of this encounter Care Teams Tapper Operator Relationship Specialty Start Date End Date Stan Fletcher MD [address] [place] [address] PCP - General Internal Medicine 08/20/18 documented as of this encounter
--- OUTSIDE RECORDS SUMMARY | 2024-12-19 06:12 | XMS_ITS | Encounter Summary ---
Author Organization [employer] Address [address] [place] [address] Care Team Providers Care Avionics Integration Engineer Name Role Phone Stan Fletcher MD Primary Care Provider [phone] Reason for Visit * Reason Onset Date Comments Nurse Triage 08/23/2023 Encounter Details Date Type Department Care Team ([facility] st Contact Info) Description 08/23/2023 Telephone [facility] MED & PEDS [address] [place], [place] [phone] Stan Fletcher MD [address] [place] [address] Nurse Triage Social History Tobacco Use Types [...] 3:50 PM EST Called pt. Back via projection welding machine operator #[id number]. Called pt. Asked him if he has any Covid tests at home to test himself for Covid. Pt. States he has a test at home but, he currently at Pharmacy picking up some OTC cough medicine. I will call pt. Back at 430pm to see what Covid test result is as pt. States he lives [place] from [facility]. Called pt. Back via projection welding machine operator #[id number]. Pt. Took Covid test and it came out Negative. Pt. ShowedASL search engine optimizer over video and she states that only the control line is showing and only 1 line on home Covid test. Advised pt. That per Dr. Fletcher he would like pt. To go to Walk in at [facility] tomorrow 08/23/2023 in the am to get his lungs listened to and to assess left lung congestion. Pt. States understanding and will go to walk in at [facility] at 830am when walk in opens. * Telephone Encounter - Vivi Salazar RN - 08/23/2023 2:53 PM EST Called pt. Back via projection welding machine operator. Director Of Market Research #[id number]. Pt. States that he has a productive [...] accepted this outcome Please contact pt @ [phone] Sign Language documented in this encounter Plan of Treatment Upcoming Encounters Date Type Department Care Team ([facility] st Contact Info) Description 02/10/2025 10:00 AM EDT Office Visit [facility] & PEDS [address] [place] [address] Stan Fletcher MD [address] [place] [address] documented as of this encounter Visit Diagnoses Not on filedocumented in this encounter Care Teams Avionics Integration Engineer Relationship Specialty Start Date End Date Stan Fletcher MD [address] [place] [address] PCP - General Internal Medicine 08/20/18 documented as of this encounter
--- OUTSIDE RECORDS SUMMARY | 2024-12-19 06:12 | XMS_ITS | Encounter Summary ---
Author Organization [employer] Address [address] [place] [address] Care Team Providers Care Manager Psychology Name Role Phone Stan Fletcher MD Primary Care Provider [phone] Reason for Referral * Consultation (Routine) - Pending Review Specialty Diagnoses / Procedures Referred By Contivan t Referred To Contact Endocrinology Diagnoses Diabetes mellitus due to underlying condition with hyperglycemia, with long-term current use of insulin (CMS/HCC) Stan Fletcher MD [address] [place] [address] Phone: tel: fax: Referral ID Status Reason Start Date Expiration Date Visits Requested Visits Authorized [id number] Pending Review Specialty Services Required 12/18/2024 12/18/2025 1 1 Encounter Details Date Type Department Care Team ([facility] st Contact Info) Description 12/10/2024 Orders Only [facility] MED & PEDS [address] [place] [address] Stan Fletcher MD [address] [place] [address] Type 2 diabetes mellitus without complication, with long-term current use of insulin (CMS/HCC) (Primary Dx); Primary hypertension; Diabetes mellitus due to underlying condition with hyperglycemia, with long-term current use of insulin (CMS/HCC) Social History Tobacco Use Types Packs/Day Years [...] Description 02/10/2025 10:00 AM EDT Office Visit [facility] MED & PEDS [address] [place] [address] Stan Fletcher MD [address] [place] [address] Scheduled Orders Name Type Priority Associated Diagnoses Orde r Schedule Basic Metabolic Panel Lab Routine Primary hypertension Expected: 12/10/2024 (Approximate), Expires: 12/10/2025 Scheduled Referrals Name Type Priority Associated Diagnoses Order Schedule Referral to Endocrinology Outpatient Referral Routine Diabetes mellitus due to underlying condition with hyperglycemia, with long-term current use of insulin (CMS/[facility]) Expected: 12/18/2024 (Approximate), Expires: 12/18/2025 documented as of this encounter Visit Diagnoses Diagnosis Type 2 diabetes mellitus without complication, with long-term current use of insulin (CMS/HCC)- Primary Primary hypertension Unspecified essential hypertension Diabetes mellitus due to underlying condition with hyperglycemia, with long-term current use of insulin (CMS/[facility]) documented in this encounter Additional Health Concerns Assessment Noted Time PHQ-9 Depression Total Score: 0 11/06/19 25 9:29 AM EDT documented as of this encounter Care Teams Manager Psychology Relationship Specialty Start Date End Date Stan Fletcher MD [address] [place] [address] PCP - General Internal Medicine 08/20/18 documented as of this encounter
--- OUTSIDE RECORDS SUMMARY | 2024-12-19 06:12 | XMS_ITS | Clinical Summary ---
Author Organization [employer] Address [address] [place] [address] 7 [place] [address] Care Team Providers Care Stitcher Tape Controlled Machine Name Role Phone Stan Fletcher MD Primary Care Provider [phone] Allergies Active Allergy Reactions Criticality Noted Date [...] mL 11 2022 Active Continuous Blood Gluc Translator Interpreter (FreeStyle Cathryn 2 [place]) deviceIndications:Type 2 diabetes mellitus without complication, with long-term current use of insulin ([facility]) To use daily 1 each 2022 Active Continuous Blood Gluc Sensor (FreeStyle Cathryn 2 Sensor) miscIndications:Type 2 diabetes mellitus without complication, with long-term current use of insulin ([facility]) To use daily 2 each 11 [...] hyperglycemia, with long-term current use of insulin (CMS/[facility]) INJECT 12 UNITS SUBCUTANEOUSLY THREE TIMES [...] current use of insulin ([facility]) Inject 12 Units as directed 3 [...] 60 capsule 11 03/31 Active Continuous Glucose Translator Interpreter (FreeStyle Cathryn 2 [place]) deviceIndications:Type 2 diabetes mellitus without complication, with long-term current use of insulin ([facility]) Scan sensor every 8 hours 1 each 2023 Active Continuous Glucose Sensor (FreeStyle Cathryn 2 Sensor) miscIndications:Type 2 diabetes mellitus without complication, with long-term current use of insulin ([facility]) Apply 1 sensor every 14 days 2 each 2023 Active glucose blood (FreeStyle Precision Anjel Test) test stripIndications:Type 2 diabetes mellitus without complication, with long-term current use of insulin ([facility]) Use to test blood sugar 4 [...] 30 mL 11 2023 Active TechLite Pen [place] 32G X 6 MM [facility] USE FOUR TIMES DAILY] 100 each 2023 Active gabapentin (Neurontin) 300 MG capsule TAKE ONE CAPSULE THREE TIMES DAILY 180 capsule 2024 Active nabumetone (Relafen) 750 MG tabletIndications:Acut e pain of left shoulder TAKE ONE TABLET TWICE DAILY 60 tablet 5 2024 Active gabapentin (Neurontin) 400 MG capsuleIndications: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 90 capsule 11/05 Active losartan (Cozaar) 100 MG tabletIndications:Prim janeth hypertension Take 1 tablet (100 mg) by mouth Once per day. 30 tablet 11/05 Active tiZANidine (Zanaflex) 4 MG tabletIndications:Righ t sided sciatica TAKE ONE TABLET EVERY 6 TO 8 HOURS NEEDED. NO MORE THAN THREE TABLETS PER 24 HOURS 60 tablet 1 2024 Active hydroCHLOROthiazide 12.5 MG tabletIndications:Prim janeth hypertension Take 1 tablet (12.5 mg) by mouth Once per day. 30 tablet 12/10 Active oxyCODONE-acetaminophe n (Percocet) 7.5-325 MG tabletIndications:Acut e pain of left shoulder Take 1 tablet by mouth every 6 (six) hours if needed for severe pain. 15 tablet 2024 Active tiZANidine (Zanaflex) 4 MG tabletIndications:Righ t sided sciatica TAKE ONE TABLET EVERY 6 TO 8 HOURS NEEDED. NO MORE THAN THREE TABLETS PER 24 HOURS 60 tablet 1 02/05/ 2025 04/17 /2025 Discontinued oxyCODONE-acetaminophe n (Percocet) 7.5-325 MG tabletIndications:Acut e pain of left shoulder TAKE ONE TABLET EVERY 6 HOURS NEEDED FOR SEVERE PAIN 15 tablet 12/17 Discontinued( Reorder (will not trigger notification to Pharmacy)) Active Problems Problem Noted Date Diagnosed Date [...] Encounters Date Type Department Care Team Description 12/18/2024 Telephone [facility] MED & PEDS [address] [place] [address] Stan Fletcher MD 12/17/2024 Refill [facility] MED & PEDS [address] [place] [address] Sammie Espinal, audit clerk pain of left shoulder 12/17/2024 Telephone [facility] MED & PEDS [address] [place] [address] Stan Fletcher MD 12/12/2024 Telephone [facility] MED & PEDS [address] [place] [address] Stan Fletcher MD Medication Question 12/10/2024 Orders Only [facility] MED & PEDS [address] [place] [address] Stan Fletcher MD Type 2 diabetes mellitus without complication, with long-term current use of insulin ([facility]) (Primary Dx); Primary hypertension; Diabetes mellitus due to underlying condition with hyperglycemia, with long-term current use of insulin (CMS/HCC) 12/04/2024 Telephone [facility] MEDICINE [address] [place] [address] Stan Fletcher MD Med Refill 12/04/2024 Refill [facility] MED & PEDS [address] [place] [address] Stan Fletcher MD Right sided sciatica 11/12/2024 10:45 AM EDT Office Visit [facility] MED & PEDS [address] [place] [address] Stan Fletcher MD Primary hypertension (Primary Dx); Type 2 diabetes mellitus without complication, with long-term current use of insulin ([facility]/HCC); Annual physical exam 11/12/2024 Orders Only [facility] [address] [place] [address] Marcelle Lambert MD 11/12/2024 Travel 11/11/[address] [address] Stan Fletcher MD 11/05/2024 9:15 AM EDT Office Visit [facility] MED & PEDS [address] [place] [address] Stan Fletcher MD Type 2 diabetes mellitus without complication, with long-term current use of insulin ([facility]/HCC) (Primary Dx); Herniation of intervertebral disc between L4 and L5; Primary hypertension; Dietary counseling; Exercise counseling; Class 1 obesity due to excess calories with serious comorbidity and body mass index (BMI) of 30.0 to 30.9 in adult 11/05/2024 Travel 11/04/2024 Telephone [facility] MEDICINE [address] [place] [address] Stan Fletcher MD Nurse Triage 09/30/2024 Telephone [facility] MED[facility]INE [address] [facility], [place] [phone] Stan Fletcher MD Call Back Request 09/29/2024 Refill [facility] MED[facility] [address] [facility], [place] [phone] Stan Fletcher MD Acute pain of left shoulder 09/21/2024 Refill [facility] CHC MED & PEDS [address] [facility] [place] [phone] Stan Fletcher MD Right sided sciatica from Last 3 [...] your housing situation today? I have brian alberta 11/05/[address] you li [...] Upcoming Encounters Date Type Department Care Team ([facility] st Contact Info) Description 02/10/2025 10:00 AM EDT Office Visit [facility] MED & PEDS [address] [place] [address] Stan Fletcher MD [address] [place] [address] Health Maintenance Due Date Last Done Comments [...] current use of insulin ([facility]) POCT GLUCOSE Routine 11/12/2024 10:49 AM EDT Type 2 diabetes mellitus without complication, with long-term current use of insulin ([facility]) HM DIABETES EYE EXAM Routine 11/11/2024 4:01 PM EDT ALBUMIN, RANDOM URINE W/CREATININE Routine 11/05/2024 10:17 AM EDT Type 2 diabetes mellitus without complication, with long-term current use of insulin ([facility]) POCT GLYCATED HEMOGLOBIN, TOTAL Routine 09/11/2024 10:40 AM EST Type 2 diabetes mellitus without complication, with long-term current use of insulin ([facility]) LAB COLOGUARD?? COLON CANCER SCREEN Routine 12/06/2023 7:58 AM EDT Screening for colon cancer from Last 3 Months or Most Recently Relevant to Health Maintenance Results * (ABNORMAL) Lipid Panel, Standard (11/12/2024 11:34 AM EDT) Triglycerides 176(H) <150 mg/dL [facility] Comment:Desirable Triglyceri de: less than 150 mg/dLBorderline High Triglyceride 150-199 mg/dLHigh Triglyceride: 200-499 mg/dLVery High Triglyceride: greater than or equal to 5OO mg/dL Cholesterol 116 <200 mg/dL [facility] Comment:Desirable Cholestero l: less than 200 mg/dLBorderline High Cholesterol: 200-239 mg/dLHigh Cholesterol: greater than 239 mg/dL LDL Cholesterol Calculated 49 <100 mg/dL [facility] Comment:Desirable LDL: less than 100 mg/dLNear Optimal/Above Optimal LDL: 110- 129 mg/dLBorderline High LDL: 130-159 mg/dLHigh LDL: 160-189 mg/dLVery High LDL: greater than or equal to 190 mg/dL HDL Cholesterol 32(L) >40 mg/dL [facility] Comment:Desirable HDL: great er than 40 mg/dL Note: This HDL assay may give artificially low results in patients with liver disease. Blood Venous blood specimen / Unknown 11/12/2024 11:34 AM EDT 11/12/2024 2:15 PM EDT us Stan Fletcher MD LAB BLOOD ORDERABLES Final Result [facility] [address] [place] [phone] * POCT glucose manually resulted (11/12/2024 10:49 AM EDT) Glucose Blood, POC 135 60 - 200 mg/dL QC Media Lot # Comment:[id number] Lot# Expiration Date Comment:02/19/2025 Blood Capillary blood specimen / Unknown 11/12/2024 10:49 AM EDT Stan Fletcher MD POINT OF CARE TEST ENTER/ED IT ORDERABLES Final Result * Diabetes Eye Exam (11/11/2024 4:01 PM EDT) Historical Provider HEALTH MAINTENANCE Final Result * Albumin, Random Urine W/Creatinine (11/05/2024 10:17 AM EDT) Creatinine, Urine 98.24 mg/dL [facility] Microalbumin Urine 20.0 mg/L [facility] Microalbum Creatinine Ratio Ur 20.3 <30 ug/mg cr [facility] Comment:Albumin/Creatinine R atio Reference Ranges: Normal: < 30 ug/mg creatinine Microalbuminuria: 30 - 300 ug/mg creatinineClinical Albuminuria: > 300 ug/mg creatinine Urine (Urine, Random) 11/05/2024 10:17 AM EDT 11/05/2024 2:07 PM EDT Stan Fletcher MD LAB URINE ORDERABLES Final Result [facility] [address] [place] [phone] * (ABNORMAL) POCT HGB A1C (09/11/2024 10:40 AM EST) Pathologist [facility] Hemoglobin A1C 8.0(A) 4.0 - 6.0 % QC Media Lot # [id number] Lot# Expiration Date [id number] Blood 09/11/2024 10:4 0 AM EST Stan Fletcher MD POINT OF CARE TEST ENTER/ED IT ORDERABLES Final Result * (ABNORMAL) Cologuard?? colon cancer screening (12/06/2023 7:58 AM EDT) Pathologist [facility] Cologuard Result Positive( A) Negative 12/13/2023 5:48 PM EDT [employer] (CLIA #:[id number]) Comment: POSITIVE TEST RESULT. A positive Cologuard [...] (Saritha Otto al, N Engl J Med 2014;370(14):7240-8671.) Cologuard may produce a false negative or false positive result (no colorectal cancer or precancerous polyp present at colonoscopy follow up). A negative Cologuard test result does not guarantee the absence of CRC or advanced adenoma (pre-cancer). The current Cologuard screening interval is every 3 years. ([place] [employer] Society and U.S. Multi-Society Task Force). Cologuard performance data in a 10,000 patient pivotal study using colonoscopy as the reference method can be accessed at the following location: [email or web address]/results. Additional description of the Cologuard test process, warnings and precautions can be found at [email or web address]. Stool specimen (specimen) Rectal contents / Unknown 12/06/2023 7:58 AM EDT 12/07/2023 10:55 AM EDT Stan Fletcher MD LAB MOLECULAR DIAGNOSTICS O RDERABLES Final Result [employer] (CLIA #:[id number]) [place] [address] [place] [address], from Last 3 Months or Most Recently Relevant to Health Maintenance Insurance [address] [address] [facility] [employer] [address] [place] [address] [address] Care Teams Stitcher Tape Controlled Machine Relationship Specialty Start Date End Date Stan Fletcher MD [address] [place] [address] PCP - General Internal Medicine 08/20/18
--- OUTSIDE RECORDS SUMMARY | 2024-12-19 06:12 | XMS_ITS | Data Portability ---
Author Organization [employer] [facility] [place] [employer] Address [address] [place] [phone] Care Team Providers Care Elevator Operator Name Role Phone [facility] Referring Provider Assessment No assessment recorded. Plan of Treatment Reminders Order Date Submit Date Provider Last Modified By Organization Details Last Modified Time Details Appointments None recorded. Lab None recorded. Referral None recorded. Procedures None recorded. Surgeries None recorded. Imaging None recorded. Medication Orders azithromyci n 250 mg tablet 2022 [facility] #[id number], [address] [place], [address], 10:33:17 Flovent HFA 44 mcg/actuati on aerosol inhaler 2022 023 [facility] #[id number], [address] [place], [address], 10:33:17 Patient TargetsNo targets recorded. Patient InstructionsNo [...] SNOMED-CT Code Diagnosis ICD10 Code Diagnosis Note [id number] Kiana Rojas MD Main - [facility] [address] [place] [phone] 05/23/2023 10:14:23 05/24/2023 00:31:53 Cough [id number] R05.9 I provided real -time medical direction via phone for this encounter, and was available for additional phone based assistance as needed. I have reviewed and agree with the Assessment and Plan as documented by the Alum Operator. Patient given the opportunit y to ask [...] Liang Member ID Guarantor Name 05/23/2023 [facility] - DOS ON OR AFTER 2022 - DUAL ELIGIBLE - SKILLED NURSING OPTIONS AND ONE CARE (MEDICARE REPLACEMENT/AD VANTAGE - HMO) Nick Escobar [id number] Nick Escobar Notes Date Note Type Note [...] further Prednisone until evaluated by [facility] assistant manager/embalmer. ................... ................... ................... ................... ................... ................... ................... ........ CRC Nursing Assessment: Comments: Reviewed = Deuce VASQUES ................... ................... ................... ................... ................... ................... ................... ........ Alum Operator Note From Isaiah Green: Pt reports that [...] ........ Disposition: Fulfilled Kiana Rojas MD [address] [facility],[address], [place], [phone], [employer] 05/23/2023 23:34:00
--- OUTSIDE RECORDS SUMMARY | 2024-12-19 06:12 | XMS_ITS | Encounter Summary ---
Author Organization [employer] Address [address] [place] [address] 7 [place] [address] Care Team Providers Care Repeater Operator Name Role Phone Stan Fletcher MD Primary Care Provider [phone] Reason for Visit * Reason Onset Date Comments Med Refill 12/17/2024 Encounter Details Date Type Department Care Team ([facility] st Contact Info) Description 12/17/2024 Refill [facility] MED & PEDS [address] [place] [address] Sammie Espinal, CAPRICE [address] [place] [address] Acute pain of left shoulder Social History [facility] [address] [place] [address] Stan Fletcher MD [address] [place] [address] documented as of this encounter Visit Diagnoses Diagnosis Acute pain of left shoulder documented in this encounter Additional Health Concerns Assessment Noted Time PHQ-9 Depression Total Score: 0 11/06/19 25 9:29 AM EDT documented as of this encounter Care Teams Repeater Operator Relationship Specialty Start Date End Date Stan Fletcher MD [address] [place] [address] PCP - General Internal Medicine 08/20/18 documented as of this encounter
--- OUTSIDE RECORDS SUMMARY | 2024-12-19 06:12 | XMS_ITS | Encounter Summary ---
Author Organization [employer] Address [address] [place] [address] Care Team Providers Care Market Editor Name Role Phone Stan Fletcher MD Primary Care Provider [phone] Reason for Visit * Reason Onset Date Comments Durable Medical Equipment 01/26/2023 Encounter Details Date Type Department Care Team ([facility] Contact Info) Description 01/26/2023 Telephone [facility] CHC MED & PEDS [address] [place], [place] [phone] Stan Fletcher MD [address] [place] [address] Durable Medical Equipment Social History Tobacco Use [...] visit 01/02/23. * Telephone Encounter - Parul Tarqi - 01/26/2023 10:01 AM EDT Tc from pt requesting a script and PA for a Freestyle mingo 2 sensor/glucose monitor. Would like itto be sent to [facility]. For clarification, please contact pt at [phone] (Sign language) documented in this encounter Plan of Treatment Upcoming Encounters Date Type Department Care Team ([facility] st Contact Info) Description 02/10/2025 10:00 AM EDT Office Visit [facility] CHC MED & PEDS [address] [place] [address] Stan Fletcher MD [address] [place] [address] documented as of this encounter Visit Diagnoses Diagnosis Type 2 diabetes mellitus without complication, with long-term current use of insulin ([facility])- Primary documented in this encounter Care Teams Market Editor Relationship Specialty Start Date End Date Stan Fletcher MD [address] [place] [address] PCP - General Internal Medicine 08/20/18 documented as of this encounter
--- OUTSIDE RECORDS SUMMARY | 2024-12-19 06:12 | XMS_ITS | Encounter Summary ---
Author Organization [employer] Address [address] [place] [address] Care Team Providers Care Customer Experience Professional Name Role Phone Stan Fletcher MD Primary Care Provider [phone] Encounter Details Date Type Department Care Team ([facility] Contact Info) Description 07/16/2023 Orders Only [facility] MED & PEDS [address] [place] [address] Stan Fletcher MD [address] [place] [address] Social History Tobacco Use Types Packs/Day Years [...] Upcoming Encounters Date Type Department Care Team ([facility] Contact Info) Description 02/10/2025 10:00 AM EDT Office Visit [facility] MED & PEDS [address] [place], [place] [phone] Stan Fletcher MD [address] [place] [address] documented as of this encounter Procedures Procedure Name Priority Date/Time Associated Diagnosis Comments MR SHOULDER WO CONTRAST LEFT Routine 08/07/2023 8:15 AM EST documented in this encounter Results * MR Shoulder w/o Contrast Left (08/07/2023 8:15 AM EST) Anatomical Region Laterality Modality Upper Extremities, Shoulder Left Magn etic Resonance 08/07/2023 8:15 AM EST Narrative 08/07/2023 3:29 PM EST ? [facility] ?[address] ?[place] [address] ? Magnetic Resonance Report ? Signed ? Patient: Labrecrasheed,Nick ?MR#: [id number] ?? [id number] ? : 1960 ?Acct:[id number] ? Age/Sex: 62 / M ?ADM Date: 08/07/23 ? Loc: HO.MRI ? Attending Dr: Eddie Lawler MD ? Ordering Physician: Eddie Lawler MD ?? Date of Service: 08/07/23 ?? Procedure(s): MR shoulder LT wo con ?? Accession Number(s): [id number] ? cc: Stan Fletcher MD; Eddie Lawler MD ? EXAMINATION: ?? MR SHOULDER WITHOUT CONTRAST, LEFT ? CLINICAL INFORMATION: ?? Posterior left shoulder and arm pain since 06/23/2023. Impingement ?? syndrome. ? COMPARISON: ?? Left shoulder radiographs dated 06/26/2023. ? TECHNIQUE: ?? MRI of the shoulder was performed using routine sequences on a ?? high-field scanner. ? FINDINGS: ? ROTATOR CUFF: Cdfn-it-mpnstmds supraspinatus tendinosis with anterior ?? bursal surface [...] LT wo con ?? IMPRESSION: ?? 1. Eldf-yk-yrbfammj supraspinatus tendinosis with anterior bursal ?? surface [...] 1526 ? DD/ 0815 ? TD/TT: ? Guest Services Ambassador: SR ? Procedure Note Eugenio Casey - 08/07/2023 [place] [id number] [facility] [place] [address] Magnetic Resonance Report Signed Patient: Nick Escobar#: [id number] : 1960Acct:[id number] Age/Sex: 62 / MADM Date: 08/07/23 Loc: HO.MRI Attending Dr: Eddie Lawler MD Ordering Physician: Eddie Lawler MD Date of Service: 08/07/23 Procedure(s): MR shoulder LT wo con Accession Number(s): [id number] cc: Stan Fletcher MD; Eddie Lawler MD EXAMINATION: MR SHOULDER WITHOUT CONTRAST, LEFT CLINICAL INFORMATION: Posterior left shoulder and arm pain since 06/23/2023. Impingement syndrome. COMPARISON: Left shoulder radiographs dated 06/26/2023. TECHNIQUE: MRI of the shoulder was performed using routine sequences on a high-field scanner. FINDINGS: ROTATOR CUFF: Vzbv-ss-nlyghzif supraspinatus tendinosis with anterior bursal surface fraying [...] MR/MR shoulder LT wo con IMPRESSION: 1. Xzbk-wj-zpuyqwej supraspinatus tendinosis with anterior bursal surface fraying [...] in OV> 08/07/23 1526 DD/ 0815 TD/TT: Guest Services Ambassador: SR [facility] External Provider IMG MRI PROCEDURES Final Result documented in this encounter Visit Diagnoses Not on filedocumented in this encounter Care Teams Customer Experience Professional Relationship Specialty Start Date End Date Stan Fletcher MD [address] [place] [address] PCP - General Internal Medicine 08/20/18 documented as of this encounter
--- OUTSIDE RECORDS SUMMARY | 2024-12-19 06:12 | XMS_ITS | Encounter Summary ---
Author Organization [employer] Address [address] [place] [address] Care Team Providers Care Senior Attorney Name Role Phone Stan Fletcher MD Primary Care Provider [phone] Encounter Details Date Type Department Care Team ([facility] Contact Info) Description 12/07/2022 Orders Only [facility] MED & PEDS [address] [place], [place] [phone] Stan Fletcher MD [address] [place] [address] Palpitations (Primary Dx) Social History Tobacco Use [...] Upcoming Encounters Date Type Department Care Team ([facility] Contact Info) Description 02/10/2025 10:00 AM EDT Office Visit [facility] [address] [place], [place] [phone] Stan Fletcher MD [address] [place], [place] [phone] documented as of this encounter Visit Diagnoses Diagnosis Palpitations- Primary documented in this encounter Care Teams Senior Attorney Relationship Specialty Start Date End Date Stan Fletcher MD [address] [place] [address] PCP - General Internal Medicine 08/20/18 documented as of this encounter
--- OUTSIDE RECORDS SUMMARY | 2024-12-19 06:12 | XMS_ITS | Encounter Summary ---
Author Organization [employer] [facility] Address [address] [place] [address] Care Team Providers Care Scrum Product Owner Name Role Phone Stan Fletcher MD Primary Care Provider [phone] Encounter Details Date Type Department Care Team ([facility] Contact Info) Description 08/03/2022 Telephone [facility] MED & PEDS [address] [place] [address] Stan Fletcher MD [address] [place] [address] Social History Tobacco Use Types Packs/Day Years [...] Upcoming Encounters Date Type Department Care Team ([facility] Contact Info) Description 02/10/2025 10:00 AM EDT Office Visit [facility] MED & PEDS [address] [place] [address] Stan Fletcher MD [address] [place] [address] documented as of this encounter Visit Diagnoses Not on filedocumented in this encounter Care Teams Scrum Product Owner Relationship Specialty Start Date End Date Stan Fletcher MD [address] [place] [address] PCP - General Internal Medicine 08/20/18 documented as of this encounter
--- OUTSIDE RECORDS SUMMARY | 2024-12-19 06:12 | XMS_ITS | Encounter Summary ---
Author Organization [email or web address] [facility] Address [address] [place] [address] Care Team Providers Care Senior Technical Project Manager Name Role Phone Stan Fletcher MD Primary Care Provider [phone] Reason for Visit * Reason Comments Med Refill Encounter Details Date Type Department Care Team ([facility] Contact Info) Description 03/20/2023 Refill [facility] MED & PEDS [address] [place] [address] Stan Fletcher MD 505 [place] [address] Type 2 diabetes mellitus with hyperglycemia, with long-term current use of insulin ([facility]) Social History Tobacco Use Types Packs/Day Years [...] Upcoming Encounters Date Type Department Care Team ([facility] Contact Info) Description 02/10/2025 10:00 AM EDT Office Visit [facility] MED & PEDS [address] [place] [address] Stan Fletcher MD [address] [place] [address] documented as of this encounter Visit Diagnoses Diagnosis Type 2 diabetes mellitus with hyperglycemia, with long-term current use of insulin ([facility]) documented in this encounter Care Teams Senior Technical Project Manager Relationship Specialty Start Date End Date Stan Fletcher MD [address] [place] [address] PCP - General Internal Medicine 08/20/18 documented as of this encounter
--- OUTSIDE RECORDS SUMMARY | 2024-12-19 06:12 | XMS_ITS | Encounter Summary ---
Author Organization [employer] Address [address] [place] [address] Care Team Providers Care Wood Patternmaker Name Role Phone Stan Fletcher MD Primary Care Provider [phone] Reason for Visit * Reason Comments Med Refill Encounter Details Date Type Department Care Team ([facility] Contact Info) Description 01/09/2023 Refill [facility] MED & PEDS [address] [place] [address] Stan Fletcher MD [address] [place] [address] Social History Tobacco Use Types Packs/Day Years [...] Upcoming Encounters Date Type Department Care Team ([facility] Contact Info) Description 02/10/2025 10:00 AM EDT Office Visit [facility] MED & PEDS [address] [place] [address] Stan Fletcher MD [address] [place] [address] documented as of this encounter Visit Diagnoses Not on filedocumented in this encounter Care Teams Wood Patternmaker Relationship Specialty Start Date End Date Stan Fletcher MD [address] [place] [address] PCP - General Internal Medicine 08/20/18 documented as of this encounter
--- OUTSIDE RECORDS SUMMARY | 2024-12-19 06:12 | XMS_ITS | Encounter Summary ---
Author Organization [employer] Address [address] [facility] [address], [place] [address] Care Team Providers Care Secondary School Special Ed Teacher Name Role Phone Stan Fletcher MD Primary Care Provider [phone] Reason for Visit * Reason Onset Date Comments Med Refill 11/05/2023 Encounter Details Date Type Department Care Team ([facility] Contact Info) Description 11/05/2023 Telephone [facility] MEDICINE [address] [place] [address] Stan Fletcher MD [address] [place], [place] [phone] Med Refill Social History Tobacco Use Types [...] 1:59 PM EDT Tc from [facility] at [facility] requesting scripts for Continuous Blood Gluc Relocation Services Specialist (FreeStyle Cathryn 2 [place]) device ,Continuous Blood Gluc Sensor (FreeStyle Cathryn 2 Sensor) misc and Precision Anjel Test Stripsit can be Faxed to [phone] documented in this encounter Plan of Treatment Upcoming Encounters Date Type Department Care Team (Late st Contact Info) Description 02/10/2025 10:00 AM EDT Office Visit [facility] MED & PEDS [address] [place] [address] Stan Fletcher MD [address] [place] [address] documented as of this encounter Visit Diagnoses Not on filedocumented in this encounter Care Teams [employer] School Special Ed Teacher Relationship Specialty Start Date End Date Stan Fletcher MD [address] [place] [address] PCP - General Internal Medicine 08/20/18 documented as of this encounter
--- OUTSIDE RECORDS SUMMARY | 2024-12-19 06:12 | XMS_ITS | Encounter Summary ---
Author Organization [employer] [facility] Address [address] [place] [address] Care Team Providers Care Bookkeeping Assistant Name Role Phone Stan Fletcher MD Primary Care Provider [phone] Reason for Visit * Reason Comments Med Refill Encounter Details Date Type Department Care Team ([facility] Contact Info) Description 08/29/2022 Refill [facility] MED & PEDS [address] [place] [address] Stan Fletcher MD [address] [place] [address] Chronic pain syndrome Social History Tobacco Use [...] Upcoming Encounters Date Type Department Care Team ([facility] Contact Info) Description 02/10/2025 10:00 AM EDT Office Visit [facility] MED & PEDS [address] [place] [address] Stan Fletcher MD [address] [place] [address] documented as of this encounter Visit Diagnoses Diagnosis Chronic pain syndrome documented in this encounter Care Teams Bookkeeping Assistant Relationship Specialty Start Date End Date Stan Fletcher MD [address] [place] [address] PCP - General Internal Medicine 08/20/18 documented as of this encounter
--- OUTSIDE RECORDS SUMMARY | 2024-12-19 06:12 | XMS_ITS | Encounter Summary ---
Author Organization [employer] Address [address] [place] [address] Care Team Providers Care Director Of Retail Name Role Phone Stan Fletcher MD Primary Care Provider [phone] Encounter Details Date Type Department Care Team ([facility] Contact Info) Description 06/27/2023 Orders Only [facility] MED & PEDS [address] [place] [address] Stan Fletcher MD [address] [place] [address] Acute pain of left shoulder (Primary Dx) [...] EDT Office Visit [facility] MED & PEDS [address] [place], [place] [phone] Stan Fletcher MD [address] [place] [address] documented as of this encounter Visit Diagnoses Diagnosis Acute pain of left shoulder- Primary documented in this encounter Care Teams Director Of Retail Relationship Specialty Start Date End Date Stan Fletcher MD [address] [place] [address] PCP - General Internal Medicine 08/20/18 documented as of this encounter
--- OUTSIDE RECORDS SUMMARY | 2024-12-19 06:12 | XMS_ITS | Encounter Summary ---
Author Organization [employer] Address [address] [facility] 7 [place] [address] Care Team Providers Care Steam Gigger Name Role Phone Stan Fletcher MD Primary Care Provider [phone] Encounter Details Date Type Department Care Team ([facility] st Contact Info) Description 11/12/2024 Orders Only [facility] [address] [place] [address] Provider, MD Marcelle Social History Tobacco Use [...] 10:00 AM EDT Office Visit [facility] MED & PEDS [address] [place] [address] Stan Fletcher MD [address] [place] [address] documented as of this encounter Procedures Procedure [...] documented as of this encounter Care Teams Steam Gigger Relationship Specialty Start Date End Date Stan Fletcher MD [address] [place] [address] PCP - General Internal Medicine 08/20/18 documented as of this encounter
--- OUTSIDE RECORDS SUMMARY | 2024-12-19 06:12 | XMS_ITS | Encounter Summary ---
Author Organization [employer] Address [address] [facility] 7 [place] [address] Care Team Providers Care Railroad Supervisor Of Engines Name Role Phone Stan Fletcher MD Primary Care Provider [phone] Encounter Details Date Type Department Care Team ([facility] st Contact Info) Description 12/17/2024 Telephone [facility] MED & PEDS [address] [place], [place] [phone] Stan Fletcher MD [address] [place] [address] Social History Tobacco Use Types Packs/Day Years [...] encounter Miscellaneous Notes * Telephone Encounter - Hodan Mai LPN - 12/17/2024 8:37 AM EDT Received fax from [facility] requesting refill on Oxycodone-Acetaminophen 7.5- 325 mg. documented in this encounter Plan of Treatment Upcoming Encounters Date Type Department Care Team (Late st Contact Info) Description 02/10/2025 10:00 AM EDT Office Visit [facility] PEDS [address] [place] [address] Stan Fletcher MD [address] [place] [address] documented as of this encounter Visit Diagnoses Not on filedocumented in this encounter Additional Health Concerns Assessment Noted Time PHQ-9 Depression Total Score: 0 11/06/19 25 9:29 AM EDT documented as of this encounter Care Teams Railroad Supervisor Of Engines Relationship Specialty Start Date End Date tSan Fletcher MD [address] [place] [address] PCP - General Internal Medicine 08/20/18 documented as of this encounter
[2025-01-09 13:37] VITALS: BMI 30.4
--- NOTE | 2025-01-13 11:00 | P.CONAN_ITS ---
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 fusion procedure (Acute) Numbness and tingling in right hand (Acute) Trochanteric bursitis, left hip (Acute) Lumbar disc herniation (Acute) Trigger finger, left index finger (Acute) Carpal tunnel syndrome of left wrist (Acute) Left shoulder pain (Acute) Failed back syndrome of lumbar spine (Acute) Impingement syndrome of left shoulder (Acute) Status post lumbar and lumbosacral fusion by anterior technique (Acute) Neurogenic claudication due to lumbar spinal stenosis (Acute) Neurogenic claudication (Acute) Spinal cord stimulator status (Acute) Lumbar stenosis (Acute) Multilevel degenerative disc disease (Acute) Lumbar facet arthropathy (Acute) Spondylosis of lumbosacral spine with radiculopathy (Acute) Right groin pain (Acute) Deaf (Acute) Chronic pain syndrome (Acute) Diabetes (Acute) Past Medical History Medical History Back pain Wears dentures Chronic pain syndrome Personal history of COVID-19 Hx of renal calculi Elevated cholesterol HTN (hypertension) Seasonal allergies Deaf Diabetes Functional capacity: independent ambulation Family History Family History Mother History of lung cancer Family history of problems with anesthesia: No Surgical History Surgical History History of carpal tunnel surgery of left wrist (03/27/24) History of lumbar surgery (12/25/22) S/P placement of nerve stimulator Hx of cholecystectomy History of right inguinal hernia repair (~12/29/19) History of lithotripsy History of bilateral inguinal hernia repair History of Problems with Anesthesia: No Social History Social History Household Members: Spouse and Family Housing: Apartment Are you a primary manager progressive care to a significant other at home: No Do you presently have visiting nurse or other home services: No Alcohol intake: current Alcohol intake frequency: holidays/special occasions only Patient Tobacco Use Status: Never used Tobacco e-Cigarette/Vaping Use: Never Used Use of substances other than those prescribed or required for medical reasons: No Have you been hit, kicked, punched, or otherwise hurt by someone within the past year? If so, by whom?: No Are you DNR?: No Advance Directives: Yes Advance Directives Information Provided: No Advance Directives on File: Yes Advance Directives Date on File: 12/27/22 Poor oral hygiene: Yes service: No Current occupational status: employed Current occupation: [employer] Allergies Allergy/AdvReac Type Severity Reaction Status Date / Time bee pollen [BEE STINGS] Allergy Severe SWELLING Verified 01/09/25 13:27 and facial swelling Sulfa (Sulfonamide Allergy Severe swelling, Verified 01/09/25 13:27 Antibiotics) hives [SULFA (SULFONAMIDE ANTIBIOTICS)] prednisone Allergy heart Verified 01/09/25 13:27 palpitation, raises glucose levels adhesive AdvReac Intermediate Rash, Verified 01/09/25 13:27 burning, from EKG stickers Active Medications: Current Medications Lactated Ringer's (Lr) 1,000 mls @ 100 mls/hr IVCONT .Q10H CHRISTY Home Medications ?Medication ?Instructions ?Recorded ?Confirmed ?Last Taken ?Type blood sugar diagnostic #10 ea 10/29/20 12/06/23 Unknown History cholecalciferol (vitamin D3) 25 25 mcg PO DAILY 10/29/20 01/09/25 Unknown History mcg (1,000 unit) capsule coenzyme Q10 100 mg capsule 100 mg PO DAILY 10/29/20 01/09/25 Unknown History (CoQ-10) glipizide 5 mg tablet 5 mg PO DAILY 10/29/20 01/09/25 09/12/23 History insulin syringe-needle U-100 1 mL #10 ea 10/29/20 12/06/23 Unknown History 31 gauge x 01/02 mecobalamin (vitamin B12) 1,000 1,000 mcg sublingual DAILY 10/29/20 01/09/25 Unknown History mcg disintegrating tablet,sublingual pen needle, diabetic 31 gauge x #50 ea 10/29/20 12/06/23 Unknown History 11/02 acetaminophen 500 mg tablet 500 mg PO Q6H PRN Pain 12/05/22 01/09/25 Unknown History tizanidine 4 mg tablet 4 mg PO Q6-8H PRN Pain 12/05/22 01/09/25 Unknown History atorvastatin 40 mg tablet 40 mg PO DAILY 07/03/23 01/09/25 Unknown History insulin glargine 100 unit/mL (3 55 unit subcut BEDTIME 07/03/23 01/09/25 09/12/23 History mL) subcutaneous pen (Lantus Solostar U-100 Insulin) sitagliptin phosphate 100 mg 100 mg PO DAILY 09/14/23 01/09/25 09/01/24 History tablet (Januvia) insulin lispro 100 unit/mL 10 - 15 sliding scale dose subcut 03/11/24 01/09/25 Unknown History subcutaneous pen (Humalog KwikPen TID (U-100) Insulin) losartan 50 mg tablet 50 mg PO DAILY 03/11/24 01/09/25 Unknown History melatonin 5 mg tablet 5 mg PO BEDTIME PRN Insomnia 03/11/24 01/09/25 Unknown History lisinopril 20 mg tablet 40 mg PO QAM 10/17/24 01/09/25 Unknown History atenolol 25 mg tablet 25 mg PO DAILY 01/09/25 01/09/25 Unknown History gabapentin 400 mg capsule 400 mg PO TID 01/09/25 01/09/25 Unknown History Exam Height,Weight and Vital Signs: Height 5 ft 8 in Weight 90.718 kg Airway Mallampati Class: II TM Dist: >3cm Neck ROM: Full Heart: RRR Lungs: CTA Assessment and Plan Assessment Anesthesia Assessment: Anesthesia Plan Discussed Final Anesthetic Review Family History of Problems with Anesthesia: No History of Problems with Anesthesia: No NPO: Yes ASA Class: III Final Preanesthetic Review: Meds/Allgs Chart Reviewed, Consent Obtained/Reviewed and Anes Risks/Benef Reviewed Patient Risk: Intermediate Procedure Risk: Low Anesthetic Plan Anesthetic Plan: MAC: Disposition: Standard PACU
--- NOTE | 2025-01-13 11:04 | MHC.SHP ---
Pre-Procedural Eval Section A - 24 Hr Update-Section A only Date of Service: 01/13/25 Section B - Complete if H&P > 30 days Chief Complaint: pos cologuard test Relevant Family History (Specify if Yes): No Relevant Social History: None Present Medications: see Short Stay Collaborative assessment Medical History: Significant History (Back pain Wears dentures Chronic pain syndrome Personal history of COVID-19 Hx of renal calculi Elevated cholesterol HTN (hypertension) Seasonal allergies Deaf Diabetes) History of Previous Operations: Relevant previous surgery/procedure and date(s) (History of carpal tunnel surgery of left wrist (03/27/24) History of lumbar surgery (12/25/22) S/P placement of nerve stimulator Hx of cholecystectomy History of right inguinal hernia repair (~12/29/19) History of lithotripsy History of bilateral inguinal hernia repair) Allergies: Allergies Allergy/AdvReac Type Severity Reaction Status Date / Time bee pollen [BEE STINGS] Allergy Severe SWELLING Verified 01/09/25 13:27 and facial swelling Sulfa (Sulfonamide Allergy Severe swelling, Verified 01/09/25 13:27 Antibiotics) hives [SULFA (SULFONAMIDE ANTIBIOTICS)] prednisone Allergy heart Verified 01/09/25 13:27 palpitation, raises glucose levels adhesive AdvReac Intermediate Rash, Verified 01/09/25 13:27 burning, from EKG stickers Review of Systems Sugical H&P ROS: Negative: Constitution, Cardiovascular, Respiratory, Neurological, Psychiatric, Hem-Onc, Allergic/Immunologic, Gastrointestinal, Genitourinary, Musculoskeletal, Integumentary, Endocrine and Eyes/Ears/Nose/Throat Exam Surgical H&P Exam: Normal: HEENT, Normal: Heart, Normal: Lungs, Normal: Extremities, Normal: Abdomen, Normal: Skin and Normal: Neurological Plan Diagnosis/Plan: Unchanged I have reviewed the history and physical and performed a pertinent physical examination on my patient. No changes have occurred unless specified. Time Spent With Patient Time: Total time managing care of this patient today ____ minutes.
[2025-01-13 11:24] VITALS: BP 148/63; PULSE 53; RESP 16; TEMP 36.6; O2SAT 97; BMI 29.0
[2025-01-13] MEDS: Lactated Ringers 1,000 ML 100 ML IVCONT (11:30)
[2025-01-13 11:38] LABS: Glucose, Whole Blood 181 mg/dL (60-115)
--- NOTE | 2025-01-13 12:11 | HO.OPN-COLON ---
Colonoscopy Operative Note Operative Note Date of Service: 01/13/25 Narrative: Operative Information Procedure Description: Colonoscopy Indication: pos cologuard Anesthesia: MAC COLONOSCOPY Instrument: Olympus variable stiffness pediatric scope 190L Colonoscopy Monitoring: Vital signs and clinical assessment, continuous EKG monitoring, Pulse oximetry, Carbon Dioxide monitoring and blood pressure monitoring were done throughout the procedure. Colon withdrawal time was 21 minutes. Procedure: The patient was placed in the left lateral decubitis position and pre-procedure medications were administered. After a digital rectal examination of the ano-rectum, the video colonoscope was inserted into the rectum and advanced through the colon to the cecum/TI. The colonoscope was slowly withdrawn in a retrograde panoramic fashion and the colon mucosa was carefully examined including a retroflexed view of the rectum. Findings and interventions are described below. Procedure Difficulty: easy Findings: Terminal Ileum-normal Cecum:normal Ascending Colon: 10 mm sessile polyp removed with cold snare, laterally spreading granular polyp also noted 11-12 mm, lifted with eleview and removed with cold snare. Transverse Colon -normal Descending Colon:normal Sigmoid Colon: normal Rectum: Retroflexion with small internal hemorrhoids seen, grade I Anorectum - normal Intervention: cold snare and eleview Colon preparation: [place] Bowel Preparation Scale Right colon; 2 Transverse colon: 2 Left colon; 2 (0 = Unprepared colon segment with mucosa not seen due to solid stool that cannot be cleared. 1 = Portion of mucosa of the colon segment seen, but other areas of the colon segment not well seen due to staining, residual stool and/or opaque liquid. 2 = Minor amount of residual staining, small fragments of stool and/or opaque liquid, but mucosa of colon segment seen well. 3 = Entire mucosa of colon segment seen well with no residual staining, small fragments of stool or opaque liquid) Impression and Post Procedure Diagnosis: colon polyps x 2 internal hemorrhoids Plan: High fiber diet leaflet Avoid straining at stool, epsom salts and sitz bath, anusol supps or cream Repeat Colonoscopy in 2-3 years due to polyps or earlier if clinically indicated Above findings were reviewed with the patient and relevant handouts were provided if indicated.
[2025-01-13 12:15] VITALS: BP 90/52; PULSE 69; RESP 16; TEMP 36.4; O2SAT 95
--- NOTE | 2025-01-13 12:25 | HO.POSTANES ---
Post Anesthesia Evaluation Post Anesthesia Evaluation Date of Service: 01/13/25 Vital Signs: Vital Signs Temp Pulse Resp BP Pulse Ox O2 Del Method 01/13/25 12:15 97.6 F 69 16 90/52 L 95 Room Air 01/13/25 11:24 97.9 F 53 16 148/63 H 97 Room Air Anesthesia: Monitored Mental Status: Awake Pain Control: Satisfactory Nausea/Vomiting: None Hydration: Adequate Anesthesia-Related Issues: No Anes. Related Issues
[2025-01-13 12:30] VITALS: BP 124/52; PULSE 69; RESP 16; O2SAT 97
--- NOTE | 2025-01-13 13:18 | PC.NURSE ---
CAROLYNE VIVEROS CUSTOMER SERVICE TECHNICIAN, PHONE # [phone], I CONTRACTOR.
== END 2025-01-13 13:08 | disposition home or self-care (01) ==
PROVIDERS: Visit Provider Internal Medicine Gastroenterology
PROC: 0DJD8ZZ Inspection of Lower Intestinal Tract, Via Natural or Artificial Opening Endoscopic (ICD-10-PCS; CPT 45378; principal; 2025-01-13 13:00)
DX: Z12.11 Encounter for screening for malignant neoplasm of colon (principal); D12.2 Benign neoplasm of ascending colon; K64.0 First degree hemorrhoids; R19.5 Other fecal abnormalities; E11.9 Type 2 diabetes mellitus without complications; I10 Essential (primary) hypertension; E78.00 Pure hypercholesterolemia, unspecified; Z79.4 Long term (current) use of insulin; Z79.02 Long term (current) use of antithrombotics/antiplatelets; Z79.899 Other long term (current) drug therapy
CPT/HCPCS: 45385; 45381; 82947; 88305; J2704

== ENCOUNTER → 2025-01-13 10:36 | Outpatient (BNV) | payer MEDICARE, MEDICAID, SELFPAY | PROVIDERS: Visit Provider Internal Medicine Gastroenterology | DX: Z12.11 Encounter for screening for malignant neoplasm of colon (principal); R19.5 Other fecal abnormalities; D12.2 Benign neoplasm of ascending colon; K64.0 First degree hemorrhoids | CPT/HCPCS: 45381; 45385 ==

== ENCOUNTER 2025-01-23 10:38 | Outpatient (RCR) | payer MEDICARE, MEDICAID, SELFPAY ==
--- NOTE | 2024-12-26 12:56 | MHC.PT.EP ---
[facility] [place] Office [place] Office [place] Office [address] Buck Michael [address] [phone] F: [phone] F: [phone] F: [phone] F: [phone] Physical Therapy Plan of Care Date of Evaluation: 12/26/24 Date of Surgery: 09/04/24 Diagnosis: lumbar spinal stenosis, other intervertebral disc degeneration lumbar region (MD Dx) RS Hx of lumbar spinal fusion L4-L5, L5-S1 diskectomy 08/2024 MRI reveals, Granulation tissue extending from the ventral to the dorsal left lateral epidural/subdural compartment of the central spinal canal at L5-S1 encroaching the left L5 and left S1 nerve root. Central spinal canal and neuroforamina stenosis at L3-4 on a multifactorial basis compressing the neural elements. Bilateral neuroforamina stenosis at L5-S1 on a degenerative basis likely compressing the L5 exiting nerve roots. Assessment: Nick is a 64 y.o. 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 He has Hx of lumbar spinal fusion L4-L5, L5-S1 diskectomy 08/2024 MRI 11/2024 reveals, Granulation tissue extending from the ventral to the dorsal left lateral epidural/subdural compartment of the central spinal canal at L5-S1 encroaching the left L5 and left S1 nerve root. Central spinal canal and neuroforamina stenosis at L3-4 on a multifactorial basis compressing the neural elements. Bilateral neuroforamina stenosis at L5-S1 on a degenerative basis likely compressing the L5 exiting nerve roots. He presents with high level of pain with all movement. He is weak in LEs, hypomobile and tight with limited AROM in his lumbar spine, stands in slight lumbar flexion at rest, requires RW for gait to prevent falls, he requires Henny for supine to sit due to pain. He does not tolerate gentle exercises well supine. His PT prognosis is poor because he does not have motivation to particpate in PT program. He also presents with high level of pain. He was told by [facility] that PT will not help and he is only being sent becasue his insurance requires it before they will approve his lumabr spine surgery. He does want to participate in a couple PT sessions to meet insurance requirements. Frequency and Duration: The patient will be seen 1x/week, every other week, for 4 weeks Short Term Goals: 2 weeks Patient demonstrates consistency and independence with HEP to self manage symptoms. Snf Goals: 4 weeks Patient is able ot demonstrate improved gait with RW, closer to erect to prevent stress on lumbar discs. Patient is able to perform proper supine to sit, sit to supine, and rolling for transfers independently to reduce back strain. Treatment Plan: Modalities to reduce pain, spasms and effusion. Manual therapy to restore motion and function. Therapeutic exercise to improve strength and flexibility. Neuromuscular re-education for posture and balance. Therapeutic activities to return to functional activities of daily living. Electronically signed by: Karo Laurent, PT, DPT Please sign and return to therapist. Thank you for your referral.
== END 2025-03-02 10:28 | disposition home or self-care (01) ==
LOC: HO.PT 10:38
PROVIDERS: PCP Internal Medicine; Visit Provider Physician Assistant
DX: M48.061 Spinal stenosis, lumbar region without neurogenic claudication (principal); M51.369 Other intervertebral disc degeneration, lumbar region without mention of lumbar back pain or lower extremity pain; Z98.1 Arthrodesis status
CPT/HCPCS: 97110; 97163; 97530; 97535

== ENCOUNTER 2025-02-10 10:39 | Outpatient (REF) | payer MEDICARE, MEDICAID, SELFPAY ==
--- OUTSIDE RECORDS SUMMARY | 2025-02-10 11:55 | XMS_ITS | Encounter Summary ---
Author Organization [employer] Address [address] [place] [address] [address], [place] [address] Care Team Providers Care Radiotelegraph Operator Name Role Phone Stan Fletcher MD Primary Care Provider [phone]- [phone] Reason for Visit * Reason Comments Med Refill Encounter Details Date Type Department Care Team (Late Contact Info) Description 03/20/2023 Refill [facility] [address] [place] [address] Stan Fletcher MD [address] [place] [address] Type 2 diabetes mellitus with hyperglycemia, with long-term current use of insulin ([facility]) Social History Tobacco Use Types Packs/Day Years [...] Department Care Team (Late Contact Info) Description 05/13/2025 10:30 AM EDT Office Visit [facility] [address] [place] [address] Stan Fletcher MD [address] [place] [address] documented as of this encounter Visit Diagnoses Diagnosis Type 2 diabetes mellitus with hyperglycemia, with long-term current use of insulin ([facility]) documented in this encounter Care Teams Radiotelegraph Operator Relationship Specialty Start Date End Date Stan Fletcher MD [address] [place] [id number] PCP - General Internal Medicine 08/20/18 documented as of this encounter
[2025-02-10 14:32] LABS: Anion Gap 12 (12-20); Blood Urea Nitrogen 47 mg/dL (9-16); Calcium 9.5 mg/dL (8.4-10.2); Carbon Dioxide 24 mmol/L (22-29); Chloride 109 mmol/L (96-108); Estimated Glomerular Filt Rate 49; Glucose Random 87 mg/dL (60-115); Potassium 4.9 mmol/L (3.3-5.1); Sodium 140 mmol/L (135-145)
[2025-02-11 08:27] LABS: ~HepC Num1 0.11 S/CO (0.00-0.79); ~Hepatitis C Antibody Nonreactive (Nonreactive)
== END 2025-02-10 10:40 | disposition home or self-care (01) ==
LOC: HO.CHCLDS 10:39
PROVIDERS: Visit Provider Internal Medicine
DX: I10 Essential (primary) hypertension (principal); E11.9 Type 2 diabetes mellitus without complications; Z79.4 Long term (current) use of insulin
CPT/HCPCS: 36415; 80048; 86803

== ENCOUNTER 2025-03-17 08:07 | Inpatient (IN) | payer MEDICARE, MEDICAID, SELFPAY ==
[2025-03-03 10:50] VITALS: BP 142/74; PULSE 54; RESP 16; O2SAT 98; BMI 29.5
[2025-03-03 12:04] LABS: Hematocrit 37.3 % (42.0-52.0); Hemoglobin 13.3 g/dl (14.0-18.0); Mean Corpuscular HGB Conc 35.7 g/dl (31.0-36.0); Mean Corpuscular Hemoglobin 32.0 pg (27.0-33.0); Mean Corpuscular Volume 89.9 fL (80.0-98.0); NRBC Abs Auto 0.000 X10*3/uL (0.0-0.012); NRBC Pct Auto 0.0 /100WBC (0.0-0.2); Platelet Count 170 X10*3/uL (160-400); Red Blood Count 4.15 X10*6/uL (4.60-5.80); White Blood Count 5.4 X10*3/uL (4.8-10.8)
--- NOTE | 2025-03-04 08:47 | HO.ANESPROP2 ---
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 Active Problems Active Problems: All Active Problems Lumbar spinal stenosis due to adjacent segment disease after fusion procedure (Acute) Numbness and tingling in right hand (Acute) Trochanteric bursitis, left hip (Acute) Lumbar disc herniation (Acute) Trigger finger, left index finger (Acute) Carpal tunnel syndrome of left wrist (Acute) Left shoulder pain (Acute) Failed back syndrome of lumbar spine (Acute) Impingement syndrome of left shoulder (Acute) Status post lumbar and lumbosacral fusion by anterior technique (Acute) Neurogenic claudication due to lumbar spinal stenosis (Acute) Neurogenic claudication (Acute) Spinal cord stimulator status (Acute) Lumbar stenosis (Acute) Multilevel degenerative disc disease (Acute) Lumbar facet arthropathy (Acute) Spondylosis of lumbosacral spine with radiculopathy (Acute) Right groin pain (Acute) Deaf (Acute) Chronic pain syndrome (Acute) Diabetes (Acute) Past Medical History Medical History Palpitations Chest pain Back pain Wears dentures Chronic pain syndrome Personal history of COVID-19 Hx of renal calculi Elevated cholesterol HTN (hypertension) Seasonal allergies Deaf Diabetes Family History Family History Mother History of lung cancer Family history of problems with anesthesia: No Surgical History Surgical History Hx of shoulder surgery H/O colonoscopy Hx of lumbar discectomy History of carpal tunnel surgery of left wrist (03/27/24) History of lumbar surgery (12/25/22) S/P placement of nerve stimulator Hx of cholecystectomy History of right inguinal hernia repair (~12/29/19) History of lithotripsy History of bilateral inguinal hernia repair History of Problems with Anesthesia: No Social History Social History Household Members: Spouse and Family Housing: Apartment Are you a primary child adolescent care to a significant other at home: No Do you presently have visiting nurse or other home services: No Alcohol intake: current Alcohol intake frequency: holidays/special occasions only Patient Tobacco Use Status: Never used Tobacco e-Cigarette/Vaping Use: Never Used Use of substances other than those prescribed or required for medical reasons: No Have you been hit, kicked, punched, or otherwise hurt by someone within the past year? If so, by whom?: No Advance Directives: Yes Advance Directives Information Provided: No Advance Directives on File: Yes Advance Directives Date on File: 12/27/22 Poor oral hygiene: Yes service: No Current occupational status: employed Current occupation: [employer] Allergies Allergy/AdvReac Type Severity Reaction Status Date / Time bee pollen (BEE STINGS) Allergy Severe SWELLING Verified 01/09/25 13:27 and facial swelling Sulfa (Sulfonamide Allergy Severe swelling, Verified 01/09/25 13:27 Antibiotics) (SULFA hives (SULFONAMIDE ANTIBIOTICS)) acetaminophen (From Percocet) Allergy Palpitation Verified 03/03/25 10:37 s oxycodone (From Percocet) Allergy Palpitation Verified 03/03/25 10:37 s prednisone Allergy heart Verified 01/09/25 13:27 palpitation, raises glucose levels simvastatin Allergy Hives Verified 03/02/25 12:25 adhesive AdvReac Intermediate Rash, Verified 01/09/25 13:27 burning, from EKG stickers Home Medications ?Medication ?Instructions ?Recorded ?Confirmed ?Last Taken ?Type blood sugar diagnostic #10 ea 10/29/20 12/06/23 Unknown History cholecalciferol (vitamin D3) 25 25 mcg PO DAILY 10/29/20 03/02/25 Unknown History mcg (1,000 unit) capsule coenzyme Q10 100 mg capsule 100 mg PO DAILY 10/29/20 03/02/25 Unknown History (CoQ-10) glipizide 5 mg tablet 5 mg PO DAILY 10/29/20 03/03/25 09/12/23 History insulin syringe-needle U-100 1 mL #10 ea 10/29/20 12/06/23 Unknown History 31 gauge x 5/16 mecobalamin (vitamin B12) 1,000 1,000 mcg sublingual DAILY 10/29/20 03/03/25 Unknown History mcg disintegrating tablet,sublingual pen needle, diabetic 31 gauge x #50 ea 10/29/20 12/06/23 Unknown History 3/16 tizanidine 4 mg tablet 4 mg PO Q6-8H PRN Pain 12/05/22 03/02/25 Unknown History atorvastatin 40 mg tablet 40 mg PO DAILY 07/03/23 03/03/25 Unknown History insulin glargine 100 unit/mL (3 60 unit subcut BEDTIME 07/03/23 03/03/25 09/12/23 History mL) subcutaneous pen (Lantus Solostar U-100 Insulin) sitagliptin phosphate 100 mg 100 mg PO DAILY 09/14/23 03/03/25 09/01/24 History tablet (Januvia) insulin lispro 100 unit/mL 10 - 15 sliding scale dose subcut 03/11/24 03/03/25 Unknown History subcutaneous pen (Humalog KwikPen TID (U-100) Insulin) losartan 50 mg tablet 100 mg PO DAILY 03/11/24 03/02/25 Unknown History lisinopril 20 mg tablet 20 mg PO QAM 10/17/24 03/03/25 Unknown History gabapentin 400 mg capsule 400 mg PO BEDTIME 01/09/25 03/03/25 Unknown History polyethylene glycol 3350 17 gram 17 g PO DAILY 03/02/25 03/02/25 Unknown History oral powder packet atenolol 25 mg tablet 25 mg PO DAILY 03/03/25 03/03/25 Unknown History hydrochlorothiazide 12.5 mg tablet 12.5 mg PO DAILY 03/03/25 03/03/25 Unknown History Exam Height,Weight and Vital Signs: Height 5 ft 8 in Weight 87.997 kg Last Vital Signs Pulse 54 03/03/25 10:50 Resp 16 03/03/25 10:50 BP 142/74 H 03/03/25 10:50 Pulse Ox 98 03/03/25 10:50 O2 Del Method Room Air 03/03/25 10:50 Pertinent Lab Results Pertinent Lab Results: Laboratory Tests 03/03/25 03/03/25 11:21 11:30 WBC 5.4 RBC 4.15 L Hgb 13.3 L Hct 37.3 L MCV 89.9 MCH 32.0 MCHC 35.7 RDW 12.5 Plt Count 170 MPV 10.1 Absolute Nucleated RBC 0.000 Nucleated RBC % (auto) 0.0 Blood Type A Positive Antibody Screen NEGATIVE Narrative Narrative: EKG 08/2024 Vent. Rate : 056 BPM Atrial Rate : 056 BPM P-R Int : 164 ms QRS Dur : 072 ms QT Int : 402 ms P-R-T Axes : -02 -37 018 degrees QTc Int : 387 ms Sinus bradycardia Left axis deviation Increased R/S ratio in V1, consider early transition or posterior infarct Abnormal ECG When compared with ECG of 26-JUN-2023 11:59, No significant change was found Assessment and Plan Assessment Anesthesia Assessment: Chart Reviewed Final Anesthetic Review Family History of Problems with Anesthesia: No History of Problems with Anesthesia: No Documented by User: Alissa Guevara MD 03/17/25 12:10 PMF Active Problems Active Problems: All Active Problems Lumbar spinal stenosis due to adjacent segment disease after fusion procedure (Acute) Numbness and tingling in right hand (Acute) Trochanteric bursitis, left hip (Acute) Lumbar disc herniation (Acute) Trigger finger, left index finger (Acute) Carpal tunnel syndrome of left wrist (Acute) Left shoulder pain (Acute)a Failed back syndrome of lumbar spine (Acute) Impingement syndrome of left shoulder (Acute) Status post lumbar and lumbosacral fusion by anterior technique (Acute) Neurogenic claudication due to lumbar spinal stenosis (Acute) Neurogenic claudication (Acute) Spinal cord stimulator status (Acute) Lumbar stenosis (Acute) Multilevel degenerative disc disease (Acute) Lumbar facet arthropathy (Acute) Spondylosis of lumbosacral spine with radiculopathy (Acute) Right groin pain (Acute) Deaf (Acute) Chronic pain syndrome (Acute) Diabetes (Acute) Past Medical History Medical History Palpitations Chest pain Back pain Wears dentures Chronic pain syndrome Personal history of COVID-19 Hx of renal calculi Elevated cholesterol HTN (hypertension) Seasonal allergies Deaf Diabetes Family History Family History Mother History of lung cancer Surgical History Surgical History Hx of shoulder surgery H/O colonoscopy Hx of lumbar discectomy History of carpal tunnel surgery of left wrist (03/27/24) History of lumbar surgery (12/25/22) S/P placement of nerve stimulator Hx of cholecystectomy History of right inguinal hernia repair (~12/29/19) History of lithotripsy History of bilateral inguinal hernia repair Social History Social History Household Members: Spouse and Family Housing: Apartment Are you a primary child adolescent care to a significant other at home: No Do you presently have visiting nurse or other home services: No Alcohol intake: current Alcohol intake frequency: holidays/special occasions only Patient Tobacco Use Status: Never used Tobacco e-Cigarette/Vaping Use: Never Used Use of substances other than those prescribed or required for medical reasons: No Have you been hit, kicked, punched, or otherwise hurt by someone within the past year? If so, by whom?: No Advance Directives: Yes Advance Directives Information Provided: No Advance Directives on File: Yes Advance Directives Date on File: 12/27/22 Poor oral hygiene: Yes service: No Current occupational status: employed Current occupation: [employer] Allergies Allergy/AdvReac Type Severity Reaction Status Date / Time bee pollen (BEE STINGS) Allergy Severe SWELLING Verified 01/09/25 13:27 and facial swelling Sulfa (Sulfonamide Allergy Severe swelling, Verified 01/09/25 13:27 Antibiotics) (SULFA hives (SULFONAMIDE ANTIBIOTICS)) acetaminophen (From Percocet) Allergy Palpitation Verified 03/03/25 10:37 s oxycodone (From Percocet) Allergy Palpitation Verified 03/03/25 10:37 s prednisone Allergy heart Verified 01/09/25 13:27 palpitation, raises glucose levels simvastatin Allergy Hives Verified 03/02/25 12:25 adhesive AdvReac Intermediate Rash, Verified 01/09/25 13:27 burning, from EKG stickers Home Medications ?Medication ?Instructions ?Recorded ?Confirmed ?Last Taken ?Type blood sugar diagnostic #10 ea 10/29/20 12/06/23 Unknown History cholecalciferol (vitamin D3) 25 25 mcg PO DAILY 10/29/20 03/02/25 Unknown History mcg (1,000 unit) capsule coenzyme Q10 100 mg capsule 100 mg PO DAILY 10/29/20 03/02/25 Unknown History (CoQ-10) glipizide 5 mg tablet 5 mg PO DAILY 10/29/20 03/03/25 09/12/23 History insulin syringe-needle U-100 1 mL #10 ea 10/29/20 12/06/23 Unknown History 31 gauge x 01/02 mecobalamin (vitamin B12) 1,000 1,000 mcg sublingual DAILY 10/29/20 03/03/25 Unknown History mcg disintegrating tablet,sublingual pen needle, diabetic 31 gauge x #50 ea 10/29/20 12/06/23 Unknown History 11/02 tizanidine 4 mg tablet 4 mg PO Q6-8H PRN Pain 12/05/22 03/02/25 Unknown History atorvastatin 40 mg tablet 40 mg PO DAILY 07/03/23 03/03/25 Unknown History insulin glargine 100 unit/mL (3 60 unit subcut BEDTIME 07/03/23 03/03/25 09/12/23 History mL) subcutaneous pen (Lantus Solostar U-100 Insulin) sitagliptin phosphate 100 mg 100 mg PO DAILY 09/14/23 03/03/25 09/01/24 History tablet (Januvia) insulin lispro 100 unit/mL 10 - 15 sliding scale dose subcut 03/11/24 03/03/25 Unknown History subcutaneous pen (Humalog KwikPen TID (U-100) Insulin) losartan 50 mg tablet 100 mg PO DAILY 03/11/24 03/02/25 Unknown History lisinopril 20 mg tablet 20 mg PO QAM 10/17/24 03/03/25 Unknown History gabapentin 400 mg capsule 400 mg PO BEDTIME 01/09/25 03/03/25 Unknown History polyethylene glycol 3350 17 gram 17 g PO DAILY 03/02/25 03/02/25 Unknown History oral powder packet atenolol 25 mg tablet 25 mg PO DAILY 03/03/25 03/03/25 Unknown History hydrochlorothiazide 12.5 mg tablet 12.5 mg PO DAILY 03/03/25 03/03/25 Unknown History Exam Airway Mallampati Class: II (edentulous) TM Dist: >3cm Neck ROM: Full Loose/Missing/Broken Teeth: Yes, Upper and Lower Heart: RRR Lungs: CTA Assessment and Plan Assessment Anesthesia Assessment: Anesthesia Plan Discussed Final Anesthetic Review NPO: Yes ASA Class: II Final Preanesthetic Review: Meds/Allgs Chart Reviewed, Consent Obtained/Reviewed and Anes Risks/Benef Reviewed Patient Risk: Low Procedure Risk: Intermediate Anesthetic Plan Anesthetic Plan: GA Disposition: Standard PACU
[2025-03-17] VITALS (13 sets, daily range): BP systolic 116–158; BP diastolic 46–108; PULSE 53–86; RESP 10–18; TEMP 36–36.9; O2SAT 93–100
--- NOTE | ~2025-03-17 | FL_ITS ---
EXAMINATION: FL GUIDANCE ONLY HISTORY: L3-4 OLIF and revision posterior instrumentation COMPARISON: Correlation is made with an MRI of the lumbar spine dated 11/25/2024. TECHNIQUE: Fluoroscopy time: 56.8 seconds. Cumulative Dose: 37.352 mGy. DAP: 15.312 mGym2 Images: 3. FINDINGS: Fluoroscopic spot films of the lumbar spine demonstrate revision of the previously seen posterior fusion. The L5 pedicle screws have been removed and new pedicle screws have been placed into the L3 vertebral body. An L3-4 disc space as also been placed. FL/FL guidance in OR IMPRESSION: Fluoroscopy during procedure. Please see procedure report for additional information. Electronically signed by: Michael Salomon MD 03/17/2025 01:49 PM EDT
[2025-03-17] MEDS: Lactated Ringers 1,000 ML 100 ML IVCONT (08:35)
--- OUTSIDE RECORDS SUMMARY | 2025-03-17 08:35 | XMS_ITS | Data Portability ---
Author Organization [facility], [facility] [employer] [facility] Address [address] [place] [id number] Care Team Providers Care Geodesy Teacher Name Role Phone [facility] Referring Provider Assessment No assessment recorded. Plan of Treatment Reminders Order Date Submit Date Provider Last Modified By Organization Details Last Modified Time Details Appointments None recorded. Lab None recorded. Referral None recorded. Procedures None recorded. Surgeries None recorded. Imaging None recorded. Medication Orders azithromyci n 250 mg tablet 2022 023 [id number], [address] [place], [address], 10:33:17 Flovent HFA 44 mcg/actuati on aerosol inhaler 2022 023 [id number], [address] [place], [address], 10:33:17 Patient TargetsNo targets recorded. Patient InstructionsNo [...] blood by Pulse oximetry Heart rate Systolic And Diastolic Provider Name and Address Organization Details Last Updated DateTime 3 16 /min 97 [degF] 16 % 16 % 77 /min 147/70 mm[Hg] Not Available [facility] - production 3 10:14:26 Social History None recorded. Functional Status None recorded. Mental Status None recorded. Family History Nothing Reported. Medical History No medical history recorded. Past Encounters Encounter ID Performer Location Encounter Start Date Encounter Closed Date Diagnosis/Indication Diagnosis SNOMED-CT Code Diagnosis ICD10 Code Diagnosis Note [id number] Kiana Rojas MD [facility] - [facility] [address] [place] [phone] 05/23/2023 10:14:23 05/24/2023 00:31:53 Cough 36083873 R05.9 I provided real -time medical direction via phone for this encounter, and was available for additional phone based assistance as needed. I have reviewed and agree with the Assessment and Plan as documented by the Quiller Runner. Patient given the opportunit y to ask [...] Recorded Advance Directives Directive None Recorded Payers Insurance Date Sequence Insurance Name Policy Number Policy Liang Covered Member ID Liang Member ID Guarantor Name 12/04/2023 1 [facility] - DOS ON OR AFTER 2022 - DUAL ELIGIBLE - GROUP HOME OPTIONS AND ONE CARE (MEDICARE REPLACEMENT/AD VANTAGE - HMO) Nick Escobar [id number] Nick Escobar
--- OUTSIDE RECORDS SUMMARY | 2025-03-17 08:35 | XMS_ITS | Encounter Summary ---
Author Organization [employer] Address [address] [place] [address] [address], [place] [address] Care Team Providers Care Booky Name Role Phone Stan Fletcher MD Primary Care Provider [phone]- [phone] Reason for Visit * Reason Comments Med Refill Encounter Details Date Type Department Care Team (Late Contact Info) Description 03/20/2023 Refill [facility]S [address] [place] [address] Stan Fletcher MD [address] [place] [address] Type 2 diabetes mellitus with hyperglycemia, with long-term current use of insulin ([facility]) Social History Tobacco Use Types [...] Description 05/13/2025 10:30 AM EDT Office Visit [facility] [address] [place] [address] Stan Fletcher MD [address] [place] [address] documented as of this encounter Visit Diagnoses Diagnosis Type 2 diabetes mellitus with hyperglycemia, with long-term current use of insulin ([facility]) documented in this encounter Care Teams Booky Relationship Specialty Start Date End Date Stan Fletcher MD [address] [place] [phone] PCP - General Internal Medicine 08/20/18 documented as of this encounter
[2025-03-17 08:37] LABS: Glucose, Whole Blood 194 mg/dL (60-115)
--- NOTE | 2025-03-17 08:52 | PHA.MEDREC ---
Pharmacy Consult ? Medication Reconciliation Pharmacy has completed the medication reconciliation. Reviewed med rec done by nursing
--- NOTE | 2025-03-17 10:22 | MHC.SHP ---
Pre-Procedural Eval Section A - 24 Hr Update-Section A only Date of Service: 03/17/25 The patient is an INPATIENT: No Changes since office visit: No Cold of Flu in the past 2 weeks, No New Medical Problems, No Changes in Medication and No Patient answered all questions The patient has been examined within 24 hours of the surgical procedure. The History & Physical has been completed within 30 days and I have reviewed it.: No Section B - Complete if H&P > 30 days Chief Complaint: Spinal stenosis, lumbar region without neurogenic Allergies: Allergies Allergy/AdvReac Type Severity Reaction Status Date / Time bee pollen (BEE STINGS) Allergy Severe SWELLING Verified 01/09/25 13:27 and facial swelling Sulfa (Sulfonamide Allergy Severe swelling, Verified 01/09/25 13:27 Antibiotics) (SULFA hives (SULFONAMIDE ANTIBIOTICS)) acetaminophen (From Percocet) Allergy Palpitation Verified 03/03/25 10:37 s oxycodone (From Percocet) Allergy Palpitation Verified 03/03/25 10:37 s prednisone Allergy heart Verified 01/09/25 13:27 palpitation, raises glucose levels simvastatin Allergy Hives Verified 03/02/25 12:25 adhesive AdvReac Intermediate Rash, Verified 01/09/25 13:27 burning, from EKG stickers Review of Systems Sugical H&P ROS: Negative: Constitution, Cardiovascular, Respiratory, Neurological, Psychiatric, Hem-Onc, Allergic/Immunologic, Gastrointestinal, Genitourinary, Musculoskeletal, Integumentary, Endocrine and Eyes/Ears/Nose/Throat Exam Surgical H&P Exam: Normal: HEENT, Normal: Heart, Normal: Lungs, Normal: Extremities, Normal: Abdomen, Normal: Skin and Normal: Neurological (awake, alert,oriented x 3 ) Plan Diagnosis/Plan: Unchanged L3-4 Oblique lumbar interbody fusion, revision posterior instrumentation Time Spent With Patient Time: Total time managing care of this patient today __5__ minutes.
--- NOTE | 2025-03-17 13:20 | W.PM.OPN ---
Operative Note Operative Note Date of Service: 03/17/25 Narrative: Preop Diagnosis: 1.) Adjacent degenerative disc disease L3-4 with spinal stenosis 2.) Status post L4-5 lumbar fusion Procedure: 1) L3-4 discectomy, arthrodesis and implantation cage through an anterolateral, retroperitoneal approach 2) exposure previous L4-5 instrumentation with removal of bilateral L5 screws 3) insertion bilateral L3 screws 4) L3-4 posterior instrumented fusion 5) allograft Consent Informed Consent was obtained for this operation. I have explained the nature, purpose and benefits of the operation. I have discussed the risks and benefit of the operation including possible complications or adverse events with patient/family. Alternative(s) were discussed with the patient with their relative benefits and risks as well as the consequences of not accepting the operation were included in obtaining consent. Surgeon: NAPOLEON ELLIS MD, PHD Procedure Assisted By: yakelin Stanley Description of Procedure This patient underwent an L4-5 oblique lumbar interbody fusion several years ago. He presented with a adjacent degenerative disc disease L3-4 and neurogenic claudication. The patient was offered an oblique lumbar interbody fusion L3-4 and revision of the posterior instrumentation with removal of the bilateral L5 screws and insertion of new L3 screws. The procedure and complications were explained. The patient was consented. The patient was brought to the operating room and endotracheally intubated. The patient was turned in a lateral position with the left side up. Prep and drape was done followed by timeout. A small incision was made in the left lower abdominal quadrant. The muscle fascia was opened after which the 3 muscle layer was split to enter the retroperitoneal space. Dilators were docked in the anterior one third of the L3-4 disc space followed by a retractor. The retractor was opened. The L3-4 disc space was exposed. An annulotomy was done after which an elevator Tilley was used to release the disc material from its endplates and to perforate the contralateral side. A partial discectomy was done. An 8 and 10 height trial implant was inserted. The discectomy was completed. The endplates were prepared. An 10 x 45 mm with 0 degree lordosis 4 web cage filled with allograft was inserted into the disc space under fluoroscopic guidance. This resulted in rastafarian of the disc height. The retractor was removed. Hemostasis was done. The incision was closed in 2 layers. Steri-Strips used to,approximate incision. An OpSite with Tegaderm was used to cover the incision. This marked first part of the procedure. The patient was turned prone on the Damian spine table. 2C arms were installed for fluoroscopy. Prep and drape was done followed by a second timeout. The 2 previous paramedian incisions were opened by the physician graduate assistant athletic trainer and myself to expose the bilateral L4-5 instrumentation. The locking caps, rods and bilateral L5 screws were removed. . The following steps were taken. A pediguard tap was used to create a transpedicular trajectory into the vertebral body. A K wire was placed. A specially designed instrument was advanced over the K wire to decorticate the posterolateral gutter in preparation for the posterolateral fusion. A pedicle screw was advanced over the K wire and the K wire was removed. The steps were done for the bilateral L3 pedicles were a 6.5 x 45 mm screw was inserted. The bilateral L3 and L4 pedicle screws were connected with 45 mm samina bilaterally and locked down with locking caps. The extension towers were removed. The posterolateral gutter was filled with allograft to complete the posterolateral L3-4 fusion Hemostasis was done and the incision was closed in 2 layers. Steri-Strips were used to approximate the incision. An OpSite with tegaderm was used to cover the incision. All sponge and needle counts were correct. Patient was extubated and transferred in stable is to recovery room. Anesthesia: General Estimated Blood Loss (ml): 40 Duration of Surgery: 2 hours Complications: None Postoperative Plan: Admit to inpatient for clinical observation
[2025-03-17 16:27] LABS: Glucose, Whole Blood 249 mg/dL (60-115)
[2025-03-17] MEDS: oxyCODONE HCl Immed Release 5 MG TABLET 10 MG PO (17:12)
[2025-03-17 20:45] LABS: Glucose, Whole Blood 242 mg/dL (60-115)
--- NOTE | 2025-03-17 22:23 | PC.NURSE ---
Pt is on scheduled IV tylenol. Noted tylenol listed as allergy with palpitations. Spoke with pharmacy. Response was reaction most likely from Percocet. Pt offers no complaints. Per pharmacy, okay to continue.
[2025-03-18 03:49] VITALS: BP 109/55; PULSE 65; RESP 16; TEMP 36.6; O2SAT 97
[2025-03-18] MEDS: oxyCODONE HCl Immed Release 5 MG TABLET 10 MG PO (04:51)
--- NOTE | 2025-03-18 05:02 | PC.NURSE ---
Patient is deaf,alert and oriented. Communicates via sign language as well as through written notes. Stated back pain 7, denies allergy to Oxycodone and gives permission to administer this medication. Received a dose yesterday with no reported problem. Ambulated in hallway x2, voiding ok. Dressing to lower back dry , clean and intact. Small dressing to LLQ has a small stain.
[2025-03-18 07:16] LABS: Glucose, Whole Blood 348 mg/dL (60-115)
[2025-03-18 07:33] VITALS: BP 120/58; PULSE 68; RESP 18; TEMP 36.6; O2SAT 96
--- NOTE | 2025-03-18 09:10 | HO.POSTANES ---
Post Anesthesia Evaluation Post Anesthesia Evaluation Date of Service: 03/18/25 Vital Signs: Vital Signs Temp Pulse Resp BP Pulse Ox O2 Del Method 03/18/25 07:33 97.9 F 68 18 120/58 L 96 Room Air 03/18/25 03:49 97.9 F 65 16 109/55 L 97 Room Air Anesthesia: General Mental Status: Awake Pain Control: Satisfactory Nausea/Vomiting: None Hydration: Adequate Anesthesia-Related Issues: No Anes. Related Issues
--- NOTE | 2025-03-18 09:56 | HO.NEURO.PN ---
Neurosurgery Operative Note Date of Service: 03/18/25 Narrative: Postoperative day 1. L3-4 oblique lumbar interbody fusion with revision of posterior instrumentation Patient sitting in bedside with his , we used writing on paper to communicate Pacheco back and forth about the patient's status. He reports pain in his back. No problem moving his legs or tingling and numbness. The patient according to the nurse has been up voiding in his tolerating a diet okay. His blood sugars are a little bit elevated. He denies any abdominal pain, nausea vomiting. Afebrile, vital signs stable Physical exam: Patient is awake alert oriented, able to follow commands demonstrates full strength of bilateral lower extremities. Abdomen is mildly obese, nondistended nontender left lower quadrant incision is clean and dry no signs of hematoma. Back dressings clean and dry no signs of hematoma or bleeding. Impression: Postop day 1. L3-4 oblique lumbar interbody fusion with revision of posterior instrumentation, clinically doing well, we will need to see physical therapy but anticipate he can go home. He underwent similar procedure few years back so he and his are familiar with the limitations and expectations after surgery. He does have stairs so we will see how he does with that but I anticipate he will likely go home. Patient seen at bedside with Dr. Martinez. We are reassured him his blood sugars will likely come down in the next few days. If not he can follow up with his PCP.
--- NOTE | 2025-03-18 09:59 | P.DS_ITS ---
DS: Providers Provider Date of Service: 03/17/25 Date of admission: 03/17/25 08:07 Date of discharge: 03/18/25 Primary care physician: Unknown Physician Admitting clinician: Antwan Martinez DS: Diagnosis Discharge Diagnosis (1) Spondylosis of lumbosacral spine with radiculopathy: Status: Acute DS: Summary Time Attestation Discharge Coordination Time (in mins): 6 Quality: Safe Use of Opioids Does Pt have an Active Cancer Diagnosis on the Problem List?: No Quality: Stroke Does the patient have a stroke diagnosis?: No Physical Exam Vital Signs: Vital Signs: Last Vital Signs Temp 97.9 F 03/18/25 07:33 Pulse 68 03/18/25 07:33 Resp 18 03/18/25 07:33 BP 120/58 L 03/18/25 07:33 Pulse Ox 96 03/18/25 07:33 O2 Del Method Room Air 03/18/25 07:33 O2 Flow Rate 2 03/17/25 16:00 BMI result Body Mass Index 29.5 DS: Data Data Completed and Pending Completed studies during hospitalization [Text1]: Procedures Excision of Lumbar Vertebral Disc, Open Approach (12/25/22) Fusion of Lumbar Vertebral Joint with Interbody Fusion Device, Posterior Approach, Anterior Column, Open Approach (12/25/22) Fusion of Lumbar Vertebral Joint with Synthetic Substitute, Anterior Approach, Anterior Column, Open Approach (12/25/22) Labs on day of discharge: Laboratory Results - last 24 hr 03/17/25 03/17/25 03/18/25 16:20 20:41 07:12 POC Glucose 249 H 242 H 348 H Discharge Plan Discharge Anticipated Discharge Date/Time: 03/18/25 10:05 Patient Disposition: Home, Self-Care Discharge Diagnosis: L3-4 OLIF Referrals: Physician,Unknown J [Primary Care Provider, Medical] - 1 Week Discharge Medications: New oxycodone 5 mg tablet See Rx Instructions .ROUTE .COMPLEX PRN (Reason: pain) Qty: 40 0RF Rx Instructions: 1-2 tabs po q4 hours prn pain; Partial Fill upon patient request. docusate sodium [Colace] 100 mg capsule 100 mg PO BID Qty: 20 0RF methocarbamol 500 mg tablet 500 mg PO Q8H Qty: 30 2RF Continued ibuprofen 800 mg tablet 800 mg PO Q8H PRN (Reason: pain) Qty: 90 2RF tizanidine 4 mg tablet 4 mg PO Q6-8H PRN (Reason: Pain) (DME) Shower Chair Misc See Rx Instructions .Route Qty: 1 0RF Rx Instructions: As directed (DME) cane Device See Rx Instructions .Route Qty: 1 0RF Rx Instructions: As directed lisinopril 20 mg tablet 20 mg PO QAM Januvia 100 mg tablet 100 mg PO DAILY oxycodone 5 mg tablet 5 mg PO Q6H PRN (Reason: severe pain (scale score 7-10)) Qty: 30 0RF Rx Instructions: Partial Fill upon patient request. gabapentin 400 mg capsule 400 mg PO BEDTIME polyethylene glycol 3350 17 gram Powder In Packet 17 g PO DAILY atenolol 25 mg tablet 25 mg PO DAILY hydrochlorothiazide 12.5 mg tablet 12.5 mg PO DAILY glipizide 5 mg tablet 5 mg PO DAILY cholecalciferol (vitamin D3) 25 mcg (1,000 unit) capsule 25 mcg PO DAILY mecobalamin (vitamin B12) 1,000 mcg tablet,disintegrating 1,000 mcg sublingual DAILY Rx Instructions: place tablet under tongue and allow to dissolve for at least30 secs before swallowing coenzyme Q10 [CoQ-10] 100 mg capsule 100 mg PO DAILY (DME) pen needle, diabetic 31 gauge x 3/16 needle See Rx Instructions .ROUTE QID Qty: 50 Rx Instructions: As directed (DME) insulin syringe-needle U-100 1 mL 31 gauge x 5/16 syringe See Rx Instructions .ROUTE .MEDSUPPLY Qty: 10 Rx Instructions: As directed (DME) blood sugar diagnostic Strip See Rx Instructions Not Applicable TID Qty: 10 Rx Instructions: As directed insulin lispro [Humalog KwikPen Insulin] 100 unit/mL insulin pen 10 - 15 sliding scale dose subcut TID losartan 50 mg tablet 100 mg PO DAILY insulin glargine [Lantus Solostar U-100 Insulin] 100 unit/mL (3 mL) insulin pen 60 unit subcut BEDTIME atorvastatin 40 mg tablet 40 mg PO DAILY Discharge Orders: Discharge Order (Routine); Ordered 03/18/25 Ordered By: Mark Meyers Diet: Advance to usual diet Activity on Discharge: As tolerated Stand Alone Forms: Patient Portal Discharge page Print Language: Indonesian Sign Language Activity Restrictions/Additional Instructions: After your spinal surgery we ask you to observe the following restrictions/guidelines: If you remain with elevated blood sugars please follow-up with your primary care physician Activity: It is normal to feel some discomfort as you increase your activity, but that will improve with time. We ask you avoid heavy lifting or acitivities that cause pain. As a general rule, 8lbs is a safe limit for lifting right after surgery. Walk as much as you feel comfortable but not to exhaustion. You will feel extra tired the first few days after surgery. Stay well hydrated. It is OK to walk up and down stairs You may return to driving when you are off narcotics (such as vicodin, oxycodone, dilaudid, etc), and you are back to normal functional capacity. If you have any concerns please check with office before driving. Return to work is specific to each patient and each surgery, so please speak with your doctor/PA at first follow up. Please bring paperwork such as FMLA at that time if you need it filled out. Medications: For optimum pain control, it is best to start with a combination of 500 mg of Tylenol every 4 hours with 600 mg of Motrin every 8 hours, and use narcotics as needed in between for breakthrough pain. We will give you a short supply of narcotics after surgery (usually one weeks worth). If you need more please call the office but do not use more than prescribed. You will need to give our office 48 hours notice if you need narcotics refilled and we do not fill narcotics on weekends or evenings. If you are on a narcotic, it is a good idea to take a stool softener such as colace or senna to avoid constipation If you take blood thinner such as aspirin, Plavix, Coumadin, Effient, Eliquis etc for conditions such as Afib, DVT, Pulmonary embolus, coronary disease, stents etc please speak with your surgeon about specific details as to when you can resume these medications. You can resume NSAIDs on post op day 1 (eg: Motrin, Naproxen, etc). Follow up: Please call the office, , after surgery to arrange a 3 week follow up for wound check. Wound Care: You may remove your dressing on the first day after surgery. ?You may ?leave open to air. Please do not remove the steri strips underneath. they will fall off on their own in one week. IT IS NORMAL FOR THE WOUND TO OOZE OR BE BLOODY FOR A FEW DAYS AFTER SURGERY. ?IF THIS HAPPENS JUST PLACE NEW DRESSING OVER IT TO AVOID STAINING CLOTHES. You may shower on post op day # 1 We ask that you do not let the water soak the wound. If it does get wet, just towel dry lightly. Please do not scrub your incision or place any type of chemical/ointment on the wound. No tub baths, pools or jacuzzis for one month. If you have any leaking or redness from your wound, or fevers, please call office Care Plan Goals: Discharge home Health Concerns: Discharge home Plan of Treatment: Discharge home Assessment: Stable
[2025-03-18 10:37] VITALS: BP 122/58; PULSE 62; RESP 18; TEMP 36.8; O2SAT 96
--- NOTE | 2025-03-18 10:43 | MHC.CM.PN ---
pt lives with s/o he is dcd home self care pt will fo outpt physical therapy
[2025-03-18 11:16] LABS: Glucose, Whole Blood 234 mg/dL (60-115)
--- NOTE | 2025-03-19 16:36 | PM.DS ---
DS: Providers Provider Date of Service: 03/17/25 Date of admission: 03/17/25 08:07 Date of discharge: 03/18/25 Primary care physician: Unknown Physician DS: Diagnosis Discharge Diagnosis (1) Spondylosis of lumbosacral spine with radiculopathy: Status: Acute DS: Summary Hospital Course Hospital Course: The patient was admitted for elective spinal surgery, underwent his procedure without complication. He is brought to the PACU then subsequently to the 3rd floor nursing into where he began his recovery. His diet was advanced without any problems. The patient was voiding without any issues with the exception of some burning with urination. His neurological exam remained stable overnight. He was allowed out of bed with physical therapy and was able to walk and clear physical therapy to go home. He had no complications during his stay. His pain was controlled with oxycodone, Toradol and Tylenol. He will follow up in the office in 3 weeks. The patient was given discharge instructions and activity guidelines. His stay was otherwise uneventful. Condition on discharge, afebrile, vital signs stable, awake alert oriented x3, no acute distress, strength full, abdomen is soft nondistended nontender. Left lower quadrant incision intact. Posterior stab incisions intact with no signs of hematoma. Time Attestation Discharge Coordination Time (in mins): 5 minute Quality: Safe Use of Opioids Does Pt have an Active Cancer Diagnosis on the Problem List?: No Quality: Stroke Does the patient have a stroke diagnosis?: No Physical Exam Vital Signs: Vital Signs: Last Vital Signs Temp 98.2 F 03/18/25 10:37 Pulse 62 03/18/25 10:37 Resp 18 03/18/25 10:37 BP 122/58 L 03/18/25 10:37 Pulse Ox 96 03/18/25 10:37 O2 Del Method Room Air 03/18/25 10:37 O2 Flow Rate 2 03/17/25 16:00 BMI result Body Mass Index 29.5 DS: Data Data Completed and Pending Completed studies during hospitalization [Text1]: Procedures Excision of Lumbar Vertebral Disc, Open Approach (12/25/22) Fusion of Lumbar Vertebral Joint with Interbody Fusion Device, Posterior Approach, Anterior Column, Open Approach (12/25/22) Fusion of Lumbar Vertebral Joint with Synthetic Substitute, Anterior Approach, Anterior Column, Open Approach (12/25/22) Discharge Plan Discharge Anticipated Discharge Date/Time: 03/18/25 10:05 Patient Disposition: Home, Self-Care Discharge Diagnosis: L3-4 OLIF Referrals: Physician,Unknown J [Primary Care Provider, Medical] - 1 Week Discharge Medications: New oxycodone 5 mg tablet See Rx Instructions .ROUTE .COMPLEX PRN (Reason: pain) Qty: 40 0RF Rx Instructions: 1-2 tabs po q4 hours prn pain; Partial Fill upon patient request. docusate sodium [Colace] 100 mg capsule 100 mg PO BID Qty: 20 0RF methocarbamol 500 mg tablet 500 mg PO Q8H Qty: 30 2RF Continued ibuprofen 800 mg tablet 800 mg PO Q8H PRN (Reason: pain) Qty: 90 2RF tizanidine 4 mg tablet 4 mg PO Q6-8H PRN (Reason: Pain) (DME) Shower Chair Misc See Rx Instructions .Route Qty: 1 0RF Rx Instructions: As directed (DME) cane Device See Rx Instructions .Route Qty: 1 0RF Rx Instructions: As directed lisinopril 20 mg tablet 20 mg PO QAM Januvia 100 mg tablet 100 mg PO DAILY oxycodone 5 mg tablet 5 mg PO Q6H PRN (Reason: severe pain (scale score 7-10)) Qty: 30 0RF Rx Instructions: Partial Fill upon patient request. gabapentin 400 mg capsule 400 mg PO BEDTIME polyethylene glycol 3350 17 gram Powder In Packet 17 g PO DAILY atenolol 25 mg tablet 25 mg PO DAILY hydrochlorothiazide 12.5 mg tablet 12.5 mg PO DAILY glipizide 5 mg tablet 5 mg PO DAILY cholecalciferol (vitamin D3) 25 mcg (1,000 unit) capsule 25 mcg PO DAILY mecobalamin (vitamin B12) 1,000 mcg tablet,disintegrating 1,000 mcg sublingual DAILY Rx Instructions: place tablet under tongue and allow to dissolve for at least30 secs before swallowing coenzyme Q10 [CoQ-10] 100 mg capsule 100 mg PO DAILY (DME) pen needle, diabetic 31 gauge x 3/16 needle See Rx Instructions .ROUTE QID Qty: 50 Rx Instructions: As directed (DME) insulin syringe-needle U-100 1 mL 31 gauge x 5/16 syringe See Rx Instructions .ROUTE .MEDSUPPLY Qty: 10 Rx Instructions: As directed (DME) blood sugar diagnostic Strip See Rx Instructions Not Applicable TID Qty: 10 Rx Instructions: As directed insulin lispro [Humalog KwikPen Insulin] 100 unit/mL insulin pen 10 - 15 sliding scale dose subcut TID losartan 50 mg tablet 100 mg PO DAILY insulin glargine [Lantus Solostar U-100 Insulin] 100 unit/mL (3 mL) insulin pen 60 unit subcut BEDTIME atorvastatin 40 mg tablet 40 mg PO DAILY Discharge Orders: Discharge Order (Routine); Ordered 03/18/25 Ordered By: Mark Meyers Diet: Advance to usual diet Activity on Discharge: As tolerated Stand Alone Forms: Patient Portal Discharge page Print Language: Eritrean Sign Language Activity Restrictions/Additional Instructions: After your spinal surgery we ask you to observe the following restrictions/guidelines: If you remain with elevated blood sugars please follow-up with your primary care physician Activity: It is normal to feel some discomfort as you increase your activity, but that will improve with time. We ask you avoid heavy lifting or acitivities that cause pain. As a general rule, 8lbs is a safe limit for lifting right after surgery. Walk as much as you feel comfortable but not to exhaustion. You will feel extra tired the first few days after surgery. Stay well hydrated. It is OK to walk up and down stairs You may return to driving when you are off narcotics (such as vicodin, oxycodone, dilaudid, etc), and you are back to normal functional capacity. If you have any concerns please check with office before driving. Return to work is specific to each patient and each surgery, so please speak with your doctor/PA at first follow up. Please bring paperwork such as FMLA at that time if you need it filled out. Medications: For optimum pain control, it is best to start with a combination of 500 mg of Tylenol every 4 hours with 600 mg of Motrin every 8 hours, and use narcotics as needed in between for breakthrough pain. We will give you a short supply of narcotics after surgery (usually one weeks worth). If you need more please call the office but do not use more than prescribed. You will need to give our office 48 hours notice if you need narcotics refilled and we do not fill narcotics on weekends or evenings. If you are on a narcotic, it is a good idea to take a stool softener such as colace or senna to avoid constipation If you take blood thinner such as aspirin, Plavix, Coumadin, Effient, Eliquis etc for conditions such as Afib, DVT, Pulmonary embolus, coronary disease, stents etc please speak with your surgeon about specific details as to when you can resume these medications. You can resume NSAIDs on post op day 1 (eg: Motrin, Naproxen, etc). Follow up: Please call the office, , after surgery to arrange a 3 week follow up for wound check. Wound Care: You may remove your dressing on the first day after surgery. ?You may ?leave open to air. Please do not remove the steri strips underneath. they will fall off on their own in one week. IT IS NORMAL FOR THE WOUND TO OOZE OR BE BLOODY FOR A FEW DAYS AFTER SURGERY. ?IF THIS HAPPENS JUST PLACE NEW DRESSING OVER IT TO AVOID STAINING CLOTHES. You may shower on post op day # 1 We ask that you do not let the water soak the wound. If it does get wet, just towel dry lightly. Please do not scrub your incision or place any type of chemical/ointment on the wound. No tub baths, pools or jacuzzis for one month. If you have any leaking or redness from your wound, or fevers, please call office Care Plan Goals: Discharge home Health Concerns: Discharge home Plan of Treatment: Discharge home Assessment: Stable Discharge Date/Time: 03/18/25 12:46
== END 2025-03-18 12:46 | disposition home or self-care (01) | DRG 451 ==
LOC: HO.SSSA 10:35 → HO.S3 13:54
PROVIDERS: Neurological Surgery; Nurse Practitioner; Admitting Provider Physician Assistant; Visit Provider Physician Assistant
PROC: 0SG00A0 Fusion of Lumbar Vertebral Joint with Interbody Fusion Device, Anterior Approach, Anterior Column, Open Approach (ICD-10-PCS; principal; 2025-03-17 10:30)
DX: M48.061 Spinal stenosis, lumbar region without neurogenic claudication (principal); M51.369 Other intervertebral disc degeneration, lumbar region without mention of lumbar back pain or lower extremity pain; E11.9 Type 2 diabetes mellitus without complications; Z98.1 Arthrodesis status; Z79.4 Long term (current) use of insulin; Z79.84 Long term (current) use of oral hypoglycemic drugs; Z79.899 Other long term (current) drug therapy
CPT/HCPCS: 36415; 82947; 85027; 86850; 86900; 86901; 97161; C1713; C1889; J0131; J0665; J0690; J1100; J1171; J1885; J2003; J2250; J2405; J2704; J3010; L8699

== ENCOUNTER → 2025-03-17 08:07 | Outpatient (BNV) | payer MEDICARE, MEDICAID, SELFPAY | PROVIDERS: Admitting Provider Physician Assistant; Visit Provider Neurological Surgery | DX: M47.27 Other spondylosis with radiculopathy, lumbosacral region (principal); Z48.89 Encounter for other specified surgical aftercare | CPT/HCPCS: 20930; 22558; 22612; 22840; 22853; 99024; 99499 ==

== ENCOUNTER 2025-04-07 13:25 | Outpatient (REF) | payer MEDICARE, MEDICAID, SELFPAY ==
--- NOTE | ~2025-04-07 | XR_ITS ---
Exam: 4 view L-spine. TECHNIQUE: AP, and lateral: Flexion, neutral, and extension view x-rays of the lumbar spine. INDICATION: M48.062 - Spinal stenosis, lumbar region with neurogenic claudication COMPARISON: October 10, 2023 FINDINGS: There clips right upper quadrant consistent with prior cholecystectomy. There are 5 nonrib-bearing lumbar segments. Posterior pedicle screws and rods are in noted at L3-L4. Pedicle screws have been removed from L5. Interbody spacer is again seen at L4-5. A spacer has been placed at L3-4. There is no subsidence of the hardware. There is no loosening or breakage pedicle screws and rods. There is interval development of severe disc space narrowing, endplate sclerosis, and vacuum phenomenon at L5-S1. With flexion and extension, there is no sign of instability. XR/XR lumbar spine 4V min IMPRESSION: Interval development of moderately severe degenerative disc disease at L5-S1. Postsurgical changes, as noted above. No complicating features. Electronically signed by: James Justin MD 04/07/2025 02:30 PM EDT
== END 2025-04-07 13:26 | disposition home or self-care (01) ==
LOC: HO.HOSX 13:25
PROVIDERS: Visit Provider Physician Assistant
DX: Z48.89 Encounter for other specified surgical aftercare (principal); M48.062 Spinal stenosis, lumbar region with neurogenic claudication; Z98.1 Arthrodesis status
CPT/HCPCS: 72110; 99212

== ENCOUNTER 2025-04-07 13:25 | Outpatient (AMB) | payer MEDICARE, MEDICAID, SELFPAY ==
--- NOTE | 2025-04-07 13:49 | HO.SPINEOV ---
Intake Visit Reasons: 1st post op Intake Note: Mr. Escobar is here today for his 1st post op. University Extension Specialist Required: Yes University Extension Specialist Name: Tablet- ASL Allergies bee pollen (BEE STINGS) Allergy (Severe, Verified 01/09/25 13:27) SWELLING and facial swelling Sulfa (Sulfonamide Antibiotics) (SULFA (SULFONAMIDE ANTIBIOTICS)) Allergy (Severe, Verified 01/09/25 13:27) swelling, hives acetaminophen (From Percocet) Allergy (Verified 03/03/25 10:37) Palpitations orange juice Allergy (Verified 03/17/25 22:10) Blister oxycodone (From Percocet) Allergy (Verified 03/03/25 10:37) Palpitations prednisone Allergy (Verified 01/09/25 13:27) heart palpitation, raises glucose levels simvastatin Allergy (Verified 03/02/25 12:25) Hives adhesive Adverse Reaction (Intermediate, Verified 01/09/25 13:27) Rash, burning, from EKG stickers Assessment & Plan Assessment & Plan (1) Neurogenic claudication due to lumbar spinal stenosis: Code(s): M48.062 - Spinal stenosis, lumbar region with neurogenic claudication Category: Medical Plan ASL interepreter [id number] used for this visit. Mr. Escobar is 3 weeks out from his extension of fusion to the L3-4 level. He has been doing great. He has been having a more less seamless recovery from the surgery. He is already asking to go back to work, for which I had denied and told him that he has to wait a few more months. His reports he has been noncompliant at times with the bending restrictions, but the patient reassures me that he really was not bending all that much. I reiterated the need to avoid bending lifting twisting so that we did not cause any complications with the screws. I also reinforced the fact that although he feels good, things are still healing and he needs to give this time to recover. His wounds have all healed up beautifully on the back and on the left lower quadrant there is a small amount of skin reaction to the adhesive from the Steri-Strips or the Tegaderm but it seems to be healing up. No signs of infection.. His strength is good in the lower extremities in his gait is normal. I would like to see him back in 6 weeks with a set of x-rays. Mark Martinez MD, PhD [facility] Orders: Orders XR lumbar spine 4V min Today M48.062 - Spinal stenosis, lumbar region with neurogenic claudication Coding Level of Care Code Global (14458) Diagnoses Neurogenic claudication due to lumbar spinal stenosis M48.062
--- OUTSIDE RECORDS SUMMARY | 2025-04-07 14:41 | XMS_ITS | Encounter Summary ---
Author Organization [employer] Address [address] [place] [address] [address], [place] [address] Care Team Providers Care Title Officer Name Role Phone Stan Fletcher MD Primary Care Provider [phone] Reason for Visit * Reason Comments Med Refill Encounter Details Date Type Department Care Team (Late Contact Info) Description 03/20/2023 Refill [facility]S [address] [place] [address] Stan Fletcher MD [address] [place] [address] Type 2 diabetes mellitus with hyperglycemia, with long-term current use of insulin ([facility]) Social History Tobacco Use Types [...] Description 05/13/2025 10:30 AM EDT Office Visit [facility] [address] [place] [address] Stan Fletcher MD [address] [place] [address] documented as of this encounter Visit Diagnoses Diagnosis Type 2 diabetes mellitus with hyperglycemia, with long-term current use of insulin ([facility]) documented in this encounter Care Teams Title Officer Relationship Specialty Start Date End Date Stan Fletcher MD [address] [place] [id number] PCP - General Internal Medicine 08/20/18 documented as of this encounter
== END 2025-04-07 14:09 | disposition home or self-care (01) ==
LOC: HO.HNS 13:26
PROVIDERS: Visit Provider Physician Assistant
DX: M48.062 Spinal stenosis, lumbar region with neurogenic claudication (principal)
CPT/HCPCS: 99024

== ENCOUNTER → 2025-04-07 14:14 | Outpatient (BNV) | payer MEDICARE, MEDICAID, SELFPAY | PROVIDERS: Visit Provider Radiology Diagnostic Radiology | DX: M51.360 Other intervertebral disc degeneration, lumbar region with discogenic back pain only (principal) | CPT/HCPCS: 72110 ==

== ENCOUNTER 2025-05-05 09:52 | Outpatient (REF) | payer MEDICARE, MEDICAID, SELFPAY ==
[2025-05-05 12:42] LABS: Alanine Aminotransferase 72 U/L (0-40); Anion Gap 11 (12-20); Aspartate Amino Transferase 49 U/L (5-37); Blood Urea Nitrogen 32 mg/dL (9-16); Calcium 9.4 mg/dL (8.4-10.2); Carbon Dioxide 27 mmol/L (22-29); Chloride 108 mmol/L (96-108); Estimated Glomerular Filt Rate 51; Potassium 4.4 mmol/L (3.3-5.1); Sodium 142 mmol/L (135-145)
== END 2025-05-05 09:53 | disposition home or self-care (01) ==
LOC: HO.LAB 09:52
PROVIDERS: PCP Internal Medicine; Visit Provider Physician Assistant Medical
DX: E11.9 Type 2 diabetes mellitus without complications (principal); Z79.4 Long term (current) use of insulin; Z79.84 Long term (current) use of oral hypoglycemic drugs
CPT/HCPCS: 36415; 80048; 82947; 83036; 84450; 84460; 99202

== ENCOUNTER 2025-05-05 09:52 | Outpatient (AMB) | payer MEDICARE, MEDICAID, SELFPAY ==
--- NOTE | 2025-05-05 10:00 | A.OFFVIS_ITS ---
Vital Signs 05/05/25 10:03 Height 5 ft 8 in Weight 198 lb 6.656 oz BMI 30.2 BP 146/90 H Blood Pressure Location Rt brachial Position Sitting Pulse 55 Pulse Source Pulse Oximeter Pulse Oximetry (%) 95 Intake Visit Reasons: [id number] int requested Intake Note: NEW Patient presents here today to established treatment for Type 2 Diabetes Mellitus: Last Diabetic eye exam was on: January 2025 Last Podiatry exam was on: Patient does not see a Tailor Garment Fitter Most recent HbA1c: 6.8%, 05/05/2025 Random Glucose- 78 mg/dL, Today Motorcycle Builder Required: Yes Motorcycle Builder Language: Chapter Relations Administrator Services: Motorcycle Builder Present (VIA VIDEO CALL) Motorcycle Builder Name: #[id number] Tanisha Accompanied by: Self / Same As Patient Allergies bee pollen (BEE STINGS) Allergy (Severe, Verified 05/05/25 10:10) SWELLING and facial swelling Sulfa (Sulfonamide Antibiotics) (SULFA (SULFONAMIDE ANTIBIOTICS)) Allergy (Severe, Verified 05/05/25 10:10) swelling, hives acetaminophen (From Percocet) Allergy (Verified 05/05/25 10:10) Palpitations orange juice Allergy (Verified 05/05/25 10:10) Blister oxycodone (From Percocet) Allergy (Verified 05/05/25 10:10) Palpitations prednisone Allergy (Verified 05/05/25 10:10) heart palpitation, raises glucose levels simvastatin Allergy (Verified 05/05/25 10:10) Hives adhesive Adverse Reaction (Intermediate, Verified 05/05/25 10:10) Rash, burning, from EKG stickers Medication List - Last Reconciled 05/05/25 by BRANDON Kohli atenolol 25 mg PO DAILY atorvastatin 40 mg PO DAILY blood sugar diagnostic As directed blood sugar diagnostic (OneTouch Verio test strips) Use as directed to check blood glucose three times daily. cane As directed cholecalciferol (vitamin D3) 25 mcg PO DAILY coenzyme Q10 (CoQ-10) 100 mg PO DAILY docusate sodium (Colace) 100 mg PO BID gabapentin 400 mg PO BEDTIME glipizide 5 mg PO DAILY hydrochlorothiazide 12.5 mg PO DAILY ibuprofen 800 mg PO Q8H PRN insulin glargine (Lantus Solostar U-100 Insulin) 50 units subcut BEDTIME insulin lispro (Humalog KwikPen (U-100) Insulin) 10 - 15 sliding scale doses subcut TID insulin syringe-needle U-100 As directed lancets (ImmunotEGGTouch Delica Plus Lancet) Use as directed to check blood glucose three times daily. losartan 100 mg PO DAILY mecobalamin (vitamin B12) 1,000 mcg sublingual DAILY methocarbamol 500 mg PO Q8H oxycodone 5 mg PO Q6H PRN oxycodone 1-2 tabs po q4 hours prn pain; Partial Fill upon patient request. pen needle, diabetic As directed polyethylene glycol 3350 17 grams PO DAILY Shower Chair As directed sitagliptin phosphate (Januvia) 100 mg PO DAILY tizanidine 4 mg PO Q6-8H PRN HPI Comments Details: This is a 64-year-old male with a past medical history of lumbar spinal stenosis, neurogenic claudication, spinal cord stimulator status, deafness and type 2 diabetes presenting for diabetic management. This is an initial consult. Wyst video head host/hostess used for visit. He was diagnosed with diabetes around 2000. He presented with urinary frequency and leg cramping. Hemoglobin a1c 6.8% today. There is a family history of diabetes (father and pgm had Type II DM). He limits portions and eats less sugar. Drinks alcohol rarely. Nonsmoker. Exercise: walks. He had back surgery in February. He still has some residual pain which is improving. Sees Dr. Martinez. He reports that he was able to lose a significant amount of weight after implementing lifestyle modifications. Current medication regimen: Glipizide 5 mg daily, Lantus 50 units at bedtime, Humalog 10-15 units before meals, Januvia 100 mg daily Past medication: Metformin caused diarrhea Compliance issues: none Hypoglycemia symptoms: No recent episodes. Does not check sugars. He works for [employer]. Hyperglycemia symptoms: none. Patient says he tried mingo and dexcom CGMs and had reactions to the adhesives. Reports he had a sample Eversence 365, and he would like this prescibed. Eye exam: UTD. Microvascular complications: Patient denied neuropathy, nephropathy and retinopathy, but last GFR was decreased. Patient says he was instructed to increase fluids. Macrovascular complications: none Hypertension: treated with hydrochlorothiazide, losartan, atenolol. His blood pressure is elevated today, but he says that he checks it at home, and it is usually under 130/80. He was a little anxious for the appointment. Hyperlipidemia: treated with atorvastatin LDL at goal <100. ROS: Constitutional: No unexplained weight loss, fever, chills, fatigue or night sweats. Respiratory: No shortness of breath Cardiovascular: No chest pain Gastrointestinal: Endorses some diarrhea but had colonoscopy recently. Reports they found 2 polyps. Stools are nonblood. Denies abdominal pain. he wonders if this is from [facility]. Neurologic: No headache, dizziness, syncope, unilateral weakness, ataxia, numbness or tingling in the extremities. Skin: No rash Physical exam: Constitutional: Alert, in no distress. Neck: Supple, Full range of motion. No lymphadenopathy. No palpable thyroid masses. Respiratory: Clear to auscultation. Cardiovascular: S1 S2 regular. No murmurs. No carotid bruits. Right foot: Warm and well perfused. No clubbing, cyanosis or edema. Intact DP pulse. Intact vibratory sensation. Intact sensation to monofilament. No open wounds. Left foot: Warm and well perfused. No clubbing, cyanosis or edema. Intact DP pulse. Intact vibratory sensation. Intact sensation to monofilament. No open wounds. [facility] Medical History (Updated 05/05/25 @ 13:11 by BRANDON Kohli) Controlled type 2 diabetes mellitus with insulin therapy Palpitations Chest pain Back pain Wears dentures Chronic pain syndrome Personal history of COVID-19 Hx of renal calculi Elevated cholesterol HTN (hypertension) Seasonal allergies Deaf Diabetes Surgical History Hx of shoulder surgery H/O colonoscopy Hx of lumbar discectomy History of carpal tunnel surgery of left wrist (03/27/24) History of lumbar surgery (12/25/22) S/P placement of nerve stimulator Hx of cholecystectomy History of right inguinal hernia repair (~12/29/19) History of lithotripsy History of bilateral inguinal hernia repair Family History Mother History of lung cancer Social History Household Members: Significant Other Housing: Apartment Are you a primary physician primary care sports medicine to a significant other at home: No Do you presently have visiting nurse or other home services: No 75 years or older and lives alone: No Alcohol intake: current Alcohol intake frequency: does not drink Patient Tobacco Use Status: Never used Tobacco e-Cigarette/Vaping Use: Never Used Advance Directives Date on File: 12/27/22 service: No Current occupational status: employed Current occupation: [employer] Physical Exam Vital Signs: Last Vital Signs Pulse 55 05/05/25 10:03 BP 146/90 H 05/05/25 10:03 Pulse Ox 95 05/05/25 10:03 BMI result Body Mass Index 30.2 Results AMB Hemoglobin A1c AMB Hemoglobin A1c 6.8 % Last Edit by DANY Diaz on 05/05/25 10:24 Results Reviewed Results Reviewed: Laboratory Last Values Glucose (Clinic) 78 mg/dL (60-115) 05/05/25 10:14 Laboratory Tests 06/26/23 11/05/24 11/12/24 11:45 10:17 11:34 Plt Count Creatinine Estimated GFR AST 19 ALT 23 Triglycerides 176 H Cholesterol 116 LDL Cholesterol, Calc 49 HDL Cholesterol 32 L Urine Creatinine 98.24 Urine Microalbumin 20.0 Microalb/Creat Ratio 20.3 02/10/25 03/03/25 10:40 11:30 Plt Count 170 Creatinine 1.46 H Estimated GFR 49 AST ALT Triglycerides Cholesterol LDL Cholesterol, Calc HDL Cholesterol Urine Creatinine Urine Microalbumin Microalb/Creat Ratio Assessment & Plan Assessment & Plan (1) Controlled type 2 diabetes mellitus with insulin therapy: Code(s): E11.9 - Type 2 diabetes mellitus without complications; Z79.4 - transitional nurse (current) use of insulin Category: Medical Plan In summary this is a 64-year-old male with controlled type 2 diabetes on basal bolus insulin, Januvia and glipizide. He is not interested in a GLP 1 due to potential side effects. We reviewed renal function was decreased in January. He will repeat labs. If this is a persistent we will discuss referral to Nephrology and stopping Januvia or glipizide and switching to an SGLT2. Discussed pathophysiology of Type II Diabetes Mellitus with the patient in detail.? I explained the jail risks and complications associated with uncontrolled diabetes including nephropathy, neuropathy, peripheral vascular disease, retinopathy, increased risk of heart disease and stroke.? Patient declines referral to dietitian. I will look into the [email or web address] 365 CGM. It will likely require prior authorization. He did not tolerate other CGM is available due to allergic reaction to adhesive. Discussed lifestyle modification with the patient. Recommended 30 minutes of moderately vigorous exercise 5 days per week to promote weight loss. Patient says he does not have time to check blood sugars regularly throughout the day but I am refilling lancets and test strips for the patient and advised him to try his best and bring the glucometer to the next visit. Reviewed treatment of hypoglycemia. Written instructions provided. Patient says he has glucose tablets. His blood pressure is mildly elevated today. Patient says home readings are better. He can bring a log to his next appointment. Follow up in 2-3 weeks to review lab results and medication. Orders: Orders AMB Hemoglobin A1c Today E11.9 - Type 2 diabetes mellitus without complications Aspartate Amino Transferase Today E11.9 - Type 2 diabetes mellitus without complications Basic Metabolic Panel Today E11.9 - Type 2 diabetes mellitus without complications Alanine Aminotransferase Today E11.9 - Type 2 diabetes mellitus without complications Medications: New lancets (OneTouch Delica Plus Lancet) Use as directed to check blood glucose three times daily. 100 ea 5RF E11.9 - Type 2 diabetes mellitus without complications blood sugar diagnostic (OneTouch Verio test strips) Use as directed to check blood glucose three times daily. 100 ea 5RF E11.9 - Type 2 diabetes mellitus without complications blood sugar diagnostic (OneTouch Verio test strips) Use as directed to check blood glucose three times daily. 100 ea 5RF E11.9 - Type 2 diabetes mellitus without complications lancets (OneTouch Delica Plus Lancet) Use as directed to check blood glucose three times daily. 100 ea 5RF E11.9 - Type 2 diabetes mellitus without complications Patient Instructions: Continue medications: Glipizide 5 mg daily, Lantus 50 units at bedtime, Humalog 10-15 units before meals, Januvia 100 mg daily Please have lab work done today. We will review the results at your next appointment. If you experience low blood sugar, treat this by eating a chewable fruit candy like skittles or jelly beans (about 8 pieces), 4 ounces (1/2 cup) of fruit juice (not diet), 1 tablespoon of honey or 4 glucose tablets. If your blood sugar is under 50, take double the amount of one of the above. Recheck your blood sugar in 15 minutes. I am going to look into getting the eversense glucose monitor. I sent lancets and test strips to your pharmacy. Coding Level of Care Code New Pt Level 5 (84943) Diagnoses Controlled type 2 diabetes mellitus with insulin therapy E11.9; Z79.4 Time Spent (min) 70 Comment Direct patient care, chart review, completing documentation
[2025-05-05 10:03] VITALS: BP 146/90; PULSE 55; O2SAT 95; BMI 30.2
[2025-05-05 10:18] LABS: Glucose, Whole Blood 78 mg/dL (60-115)
--- OUTSIDE RECORDS SUMMARY | 2025-05-05 12:44 | XMS_ITS | Encounter Summary ---
Author Organization [employer] Address [address] 7 [place] [address] Care Team Providers Care Envelope Machine Operator Name Role Phone Stan Fletcher MD Primary Care Provider [phone] Encounter Details Date Type Department Care Team ([facility] Contact Info) Description 08/23/2023 Orders Only [facility] MED & PEDS [address] [place], [place] [phone] Stan Fletcher MD [address] [place] [address] Social History Tobacco Use Types Packs/Day Years Used Date Smoking Tobacco: Never Smokeless Tobacco: Never Sex and Gender Information Value Date Recorded Sex Assigned at Male 06/19/2022 10:21 AM EDT Legal Sex Male 10:21 AM EDT Gender Identity Male 06/19/2022 10:21 AM EDT Sexual Orientation Don't know 06/19/2022 10 :21 AM EDT documented as of this encounter Plan of Treatment Not on file documented as of this encounter Visit Diagnoses Not on filedocumented in this encounter Care Teams Envelope Machine Operator Relationship Specialty Start Date End Date Stan Fletcher MD [address] [place] [address] PCP - General Internal Medicine 08/20/18 documented as of this encounter
--- OUTSIDE RECORDS SUMMARY | 2025-05-05 12:44 | XMS_ITS | Encounter Summary ---
Author Organization [employer] Address [address] [facility] 7 [place] [address] Care Team Providers Care Senior Media Director Name Role Phone Stan Fletcher MD Primary Care Provider [phone]- [phone] Encounter Details Date Type Department Care Team ([facility] Contact Info) Description 08/03/2022 Telephone [facility] MED & PEDS [address] [place], [place] [phone] Stan Fletcher MD [address] [place] [address] Social History Tobacco Use Types Packs/Day Years [...] on filedocumented in this encounter Care Teams Senior Media Director Relationship Specialty Start Date End Date Stan Fletcher MD [address] [place] [address] PCP - General Internal Medicine 08/20/18 documented as of this encounter
--- OUTSIDE RECORDS SUMMARY | 2025-05-05 12:44 | XMS_ITS | Encounter Summary ---
Author Organization [employer] Address [address] [place] [address] [address] [place] [address] Care Team Providers Care Administrative Accountant Name Role Phone Stan Fletcher MD Primary Care Provider [phone]- [phone] Encounter Details Date Type Department Care Team ([facility] Contact Info) Description 07/16/2023 Orders Only [facility] MED & PEDS [address] [place], [place] [phone] Stan Fletcher MD [address] [place] [address] Social History Tobacco Use Types Packs/Day Years [...] on file documented as of this encounter Procedures Procedure Name Priority Date/Time Associated Diagnosis Comments MR SHOULDER WO CONTRAST LEFT Routine 08/07/2023 8:15 AM EST documented in this encounter Results * MR Shoulder w/o Contrast Left (08/07/2023 8:15 AM EST) Anatomical Region Laterality Modality Upper Extremities, Shoulder Left Magn etic Resonance 08/07/2023 8:15 AM EST Narrative 08/07/2023 3:29 PM EST [address] [place] [address] Magnetic Resonance Report Signed Patient: Nick Escobar MR#: [id number] : 1960 Acct:[id number] Age/Sex: 62 / M ADM Date: 08/07/23 Loc: HO.MRI Attending Dr: Eddie Lawler MD Ordering Physician: Eddie Lawler MD Date of Service: 08/07/23 Procedure(s): MR shoulder LT wo con Accession Number(s): [id number] cc: Stan Fletcher MD; Eddie Lawler MD EXAMINATION: MR SHOULDER WITHOUT CONTRAST, LEFT CLINICAL INFORMATION: Posterior left shoulder and arm pain since 06/23/2023. Impingement syndrome. COMPARISON: Left shoulder radiographs dated 06/26/2023. TECHNIQUE: MRI of the shoulder was performed using routine sequences on a high-field scanner. FINDINGS: ROTATOR CUFF: Nuyl-bb-ifihvchw supraspinatus tendinosis with anterior bursal surface fraying [...] MR/MR shoulder LT wo con IMPRESSION: 1. Amkx-qr-ihgilxkn supraspinatus tendinosis with anterior bursal surface fraying [...] in OV> 08/07/23 1526 DD/ 0815 TD/TT: Top Hat Body Maker: Procedure Note Donotuseinterpreter, Image - 08/07/2023 [place] [address] Magnetic Resonance Report Signed Patient: Nick Escobar#: [id number] : 1960Acct:[id number] Age/Sex: 62 / MADM Date: 08/07/23 Loc: HO.MRI Attending Dr: Eddie Lawler MD Ordering Physician: Eddie Lawler MD Date of Service: 08/07/23 Procedure(s): MR shoulder LT wo con Accession Number(s): [id number] cc: Stan Fletcher MD; Eddie Lawler MD EXAMINATION: MR SHOULDER WITHOUT CONTRAST, LEFT CLINICAL INFORMATION: Posterior left shoulder and arm pain since 06/23/2023. Impingement syndrome. COMPARISON: Left shoulder radiographs dated 06/26/2023. TECHNIQUE: MRI of the shoulder was performed using routine sequences on a high-field scanner. FINDINGS: ROTATOR CUFF: Wife-qo-ousizevu supraspinatus tendinosis with anterior bursal surface fraying [...] MR/MR shoulder LT wo con IMPRESSION: 1. Igeo-zd-qorbqksp supraspinatus tendinosis with anterior bursal surface fraying [...] in OV> 08/07/23 1526 DD/ 0815 TD/TT: Top Hat Body Maker: SR [facility] External Provider IMG MRI PROCEDURES Final Result documented in this encounter Visit Diagnoses Not on filedocumented in this encounter Care Teams Administrative Accountant Relationship Specialty Start Date End Date Stan Fletcher MD [address] [place] [address] PCP - General Internal Medicine 08/20/18 documented as of this encounter
--- OUTSIDE RECORDS SUMMARY | 2025-05-05 12:44 | XMS_ITS | Encounter Summary ---
Author Organization [employer] Address 75 [facility] 7t [place] [address] Care Team Providers Care Button Riveter Name Role Phone Stan Fletcher MD Primary Care Provider [phone] Encounter Details Date Type Department Care Team ([facility] Contact Info) Description 05/05/2025 Orders Only GENERIC EXTERNAL DATA DEPARTMENT Provider, Generic External Data Social History Tobacco Use Types Packs/Day Years [...] Procedure Name Priority Date/Time Associated Diagnosis Comments ALT Routine 05/05/2025 11:40 AM EDT AST Routine 05/05/2025 11:40 AM EDT BASIC METABOLIC PANEL Routine 05/05/2025 11:40 AM EDT GLUCOSE, WHOLE BLOOD Routine 05/05/2025 10:14 AM EDT documented in this encounter Results * (ABNORMAL) ALT (05/05/2025 11:40 AM EDT) Alanine Aminotransferase 72(H) 0 - 40 U/L [facility] 05/05/2025 11:4 0 AM EDT 05/05/2025 11:40 AM EDT us Generic External Data Provider LAB BLOOD ORDERAB LES Final Result Performing Organization Address [facility] Co de Phone Number [facility] [address] [place] [phone] * (ABNORMAL) AST (05/05/2025 11:40 AM EDT) Aspartate Amino Transferase 49(H) 5 - 37 U/L [facility] 05/05/2025 11:4 0 AM EDT 05/05/2025 11:40 AM EDT us Generic External Data Provider LAB BLOOD ORDERAB LES Final Result Performing Organization Address [facility] Co de Phone Number [facility] [address] [place] [address] [phone] * (ABNORMAL) Basic Metabolic Panel (05/05/2025 11:40 AM EDT) Sodium 142 135 - 145 mmol/L [facility] Potassium 4.4 3.3 - 5.1 mmol/L [facility] Chloride 108 96 - 108 mmol/L [facility] Carbon Dioxide 27 22 - 29 mmol/L [facility] Anion Gap 11(L) 12 - 20 [facility] Urea Nitrogen (BUN) 32(H) 9 - 16 mg/dL [facility] Creatinine, Serum 1.41(H) 0.5 - 1.4 mg/dL [facility] Estimated Glomerular Filt Rate 51 [facility] Comment:Chronic Kidney Disea se: Estimated GFR < 60 mL/min/1.47b3Mpjkpl Kidney Disease: Estimated GFR < 15 mL/min/1.73m2 Glucose 100 60 - 115 mg/dL [facility] Calcium 9.4 8.4 - 10.2 mg/dL [facility] 05/05/2025 11:4 0 AM EDT 05/05/2025 11:40 AM EDT us Generic External Data Provider LAB BLOOD ORDERAB LES Final Result Performing Organization Address [facility] Co de Phone Number [facility] [address] [place] [address] [phone] * Glucose, Whole Blood (05/05/2025 10:14 AM EDT) Glucose, Whole Blood 78 60 - 115 mg/dL [facility] Comment:METER #: [id number] Testing performed in the Endocrinology Department [address] , [address], [facility]. 05/05/2025 10:1 4 AM EDT 05/05/2025 10:17 AM EDT us Generic External Data Provider LAB BLOOD ORDERAB LES Final Result [facility] [address] [place] [address] [phone] documented in this encounter Visit Diagnoses Not on filedocumented in this encounter Additional Health Concerns Assessment Noted Time PHQ-9 Depression Total Score: 0 11/06/19 25 9:29 AM EDT documented as of this encounter Care Teams Button Riveter Relationship Specialty Start Date End Date Stan Fletcher MD [address] [place] [address] PCP - General Internal Medicine 08/20/18 documented as of this encounter
--- OUTSIDE RECORDS SUMMARY | 2025-05-05 12:44 | XMS_ITS | Encounter Summary ---
Author Organization [employer] Address [address] [place] [address] 7 [place] [address] Care Team Providers Care Trackmobile Operator Name Role Phone Stan Fletcher MD Primary Care Provider [phone] Reason for Visit * Reason Comments Med Refill Encounter Details Date Type Department Care Team ([facility] Contact Info) Description 08/29/2022 Refill [facility] CHC MED & PEDS [address] [place] [address] Stan Fletcher MD [address] [place] [address] Chronic pain syndrome Social History Tobacco Use [...] syndrome documented in this encounter Care Teams Trackmobile Operator Relationship Specialty Start Date End Date Stan Fletcher MD [address] [place] [address] PCP - General Internal Medicine 08/20/18 documented as of this encounter
--- OUTSIDE RECORDS SUMMARY | 2025-05-05 12:44 | XMS_ITS | Encounter Summary ---
Author Organization [employer] Address 75 [facility] 7 [place] [address] Care Team Providers Care Hose Mender Name Role Phone Stan Fletcher MD Primary Care Provider [phone] Reason for Visit * Reason Onset Date Comments Med Refill 11/05/2023 Encounter Details Date Type Department Care Team ([facility] st Contact Info) Description 11/05/2023 Telephone [facility] [address] [place] [address] Stan Fletcher MD [address] [place], [place] [phone] Med Refill Social History Tobacco Use Types [...] AM EDT documented as of this encounter Functional Status * Over the past 2 weeks, how often have you been bothered by any of the following problems? Question Answer Date of Assessment Author Patient Health Questionnaire-2 Score 0 10/19 2:49 PM EDT Martha Mccartney MA * If you checked off any problems on this questionnaire so far, Question Answer Date of Assessment Author How difficult have these problems made it for you to do your work, take care of things at home, or get along with other people? Not difficult at all 11/08/2023 2:49 PM EDT Martha Mccartney MA * Over the past 2 weeks, how often have you been bothered by any of the following problems? Question Answer Date of Assessment Author Little interest or pleasure in doing things Not at all 11/08/2023 2:49 PM SESART Martha Mccartney MA Feeling down, depressed, or hopeless Not at all 11/08/2023 2:49 PM SESART Martha Mccartney MA Trouble falling or staying asleep, or sleeping too much Nearly every day 11/08/2023 2:49 PM SESART Martha Mccartney MA Feeling tired or having little energy More than half the days 11/08/2023 2:49 PM SESART Martha Mccartney MA Poor appetite or overeating Not at all 11/08/2023 2:49 PM SESART Martha Mccartney MA Feeling bad about yourself - or that you are a failure or have let yourself or your family down Not at all 11/08/2023 2:49 PM SESART Martha Mccartney MA Trouble concentrating on things, such as reading the newspaper or watching television Not at all 11/08/2023 2:49 PM EDT Martha Mccartney MA Moving or speaking so slowly that other people could have noticed? Or the opposite - being so fidgety or restless that you have been moving around a lot more than usual. Not at all 11/08/2023 2:49 PM EDT Martha Mccartney MA Thoughts that you would be better off or hurting yourself in some way Not at all 11/08/2023 2:49 PM EDT Martha Mccartney MA Patient Health Questionnaire-9 Score 5 11/08/2023 2:49 PM EDT Martha Mccartney M A documented as of this encounter Miscellaneous Notes * Telephone Encounter - Bismark Sauceda - 11/05/2023 1:59 PM EDT Tc from [facility] requesting scripts for Continuous Blood Gluc Marketing And Outreach Coordinator (FreeStyle Cathryn 2 [place]) device ,Continuous Blood Gluc Sensor (FreeStyle Cathryn 2 Sensor) misc and Precision Anjel Test Stripsit can be Faxed to [phone] documented in this encounter Plan of Treatment Not on file documented as of this encounter Visit Diagnoses Not on filedocumented in this encounter Care Teams Hose Mender Relationship Specialty Start Date End Date Stan Fletcher MD [address] [place] [address] PCP - General Internal Medicine 08/20/18 documented as of this encounter
--- OUTSIDE RECORDS SUMMARY | 2025-05-05 12:44 | XMS_ITS | Encounter Summary ---
Author Organization [employer] [facility] Address [address] [place] [address] Care Team Providers Care Manager Wealth Management Name Role Phone Stan Fletcher MD Primary Care Provider [phone] Reason for Visit * Reason Comments Med Refill Encounter Details Date Type Department Care Team ([facility] Contact Info) Description 03/20/2023 Refill [facility] CHC MED & PEDS [address] [place] [address] Stan Fletcher MD [address] [place] [address] Type 2 diabetes mellitus with hyperglycemia, with long-term current use of insulin (CMS/[facility]) Social History Tobacco Use Types Packs/Day Years [...] with long-term current use of insulin (CMS/HCC) documented in this encounter Care Teams Manager Wealth Management Relationship Specialty Start Date End Date Stan Fletcher MD [address] [place] [address] PCP - General Internal Medicine 08/20/18 documented as of this encounter
--- OUTSIDE RECORDS SUMMARY | 2025-05-05 12:44 | XMS_ITS | Encounter Summary ---
Author Organization [employer] Address 75 [facility] 7 [place] [address] Care Team Providers Care Coach Mechanic Name Role Phone Stan Fletcher MD Primary Care Provider [phone] Encounter Details Date Type Department Care Team ([facility] Contact Info) Description 06/27/2023 Orders Only [facility] CHC MED & PEDS [address] [place], [place] [phone] Stan Fletcher MD [address] [place] [address] Acute pain of left shoulder (Primary Dx) [...] Primary documented in this encounter Care Teams Coach Mechanic Relationship Specialty Start Date End Date Stan Fletcher MD [address] [place] [address] PCP - General Internal Medicine 08/20/18 documented as of this encounter
--- OUTSIDE RECORDS SUMMARY | 2025-05-05 12:44 | XMS_ITS | Encounter Summary ---
Author Organization [employer] Address [address] [place] [address] 7 [place] [address] Care Team Providers Care Container Coordinator Name Role Phone Stan Fletcher MD Primary Care Provider [phone] Reason for Visit * Reason Onset Date Comments Durable Medical Equipment 01/26/2023 Encounter Details Date Type Department Care Team ([facility] Contact Info) Description 01/26/2023 Telephone [facility] CHC MED & PEDS [address] [place], [place] [phone] Stan Fletcher MD [address] [place] [address] Durable Medical Equipment Social History Tobacco Use [...] CCA. For clarification, please contact pt at [phone] (Sign language) documented in this encounter Plan of Treatment Not on file documented as of this encounter Visit Diagnoses Diagnosis Type 2 diabetes mellitus without complication, with long-term current use of insulin ([facility])- Primary documented in this encounter Care Teams Container Coordinator Relationship Specialty Start Date End Date Stan Fletcher MD [address] [place] [address] PCP - General Internal Medicine 08/20/18 documented as of this encounter
--- OUTSIDE RECORDS SUMMARY | 2025-05-05 12:44 | XMS_ITS | Encounter Summary ---
Author Organization [employer] Address [address] [place] [address] Care Team Providers Care Warehouse Forklift Operator Name Role Phone Stan Fletcher MD Primary Care Provider [phone] Reason for Referral * Consultation (Routine) - Closed Specialty Diagnoses / Procedures Referred By Contac t Referred To Contact Gastroenterology Diagnoses Positive colorectal cancer screening using Cologuard test Stan Fletcher MD [address] [place] [address] Phone: tel: fax: Neli Jaeger MD [address] [place] [address] Phone: tel: fax: Referral ID Status Reason Start Date Expiration Date V isits Requested Visits Authorized [id number] Closed Specialty Services Required 12/14/2023 12/13/2024 1 1 Encounter Details Date Type Department Care Team ([facility] Contact Info) Description 12/14/2023 Orders Only [facility] CHC MED & PEDS [address] [place], [place] [phone] Stan Fletcher MD [address] [place], [place] [phone] Positive colorectal cancer screening using Cologuard test [...] as of this encounter Plan of Treatment Scheduled Referrals Name Type Priority Associated Diagnoses [...] documented as of this encounter Care Teams Warehouse Forklift Operator Relationship Specialty Start Date End Date Stan Fletcher MD [address] [place] [address] PCP - General Internal Medicine 08/20/18 documented as of this encounter
--- OUTSIDE RECORDS SUMMARY | 2025-05-05 12:44 | XMS_ITS | Encounter Summary ---
Author Organization [employer] Address [address] [place] [address] [place], [place] [address] Care Team Providers Care Shrimping Boat Captain Name Role Phone Stan Fletcher MD Primary Care Provider [phone] Reason for Referral * Consultation (Routine) - Closed Specialty Diagnoses / Procedures Referred By Contac t Referred To Contact Endocrinology Diagnoses Diabetes mellitus due to underlying condition with hyperglycemia, with long-term current use of insulin (CMS/HCC) Stan Fletcher MD [address] [place] [address] Phone: tel: fax: [facility] Endocrinology [address] [place] [address] Phone: tel: fax: Referral ID Status Reason Start Date Expiration Date V isits Requested Visits Authorized [id number] Closed Specialty Services Required 12/18/2024 12/18/2025 1 1 Encounter Details Date Type Department Care Team (Late st Contact Info) Description 12/10/2024 Orders Only [facility] CHC MED & PEDS [address] [place] [address] Stan Fletcher MD [address] [place] [address] Type 2 diabetes mellitus without complication, with long-term current use of insulin (CMS/HCC) (Primary Dx); Primary hypertension; Diabetes mellitus due to underlying condition with hyperglycemia, with long-term current use of insulin (CMS/[facility]) Social History Tobacco Use Types [...] hyperglycemia, with long-term current use of insulin ([facility]) Expected: 12/18/2024 (Approximate), Expires: 12/18/2025 documented as of this encounter Procedures Procedure Name Priority Date/Time Associated Diagnosis Comments BASIC METABOLIC PANEL Routine 02/10/2025 10:40 AM EDT Primary hypertension documented in this encounter Results * (ABNORMAL) Basic Metabolic Panel (02/10/2025 10:40 AM EDT) Sodium 140 135 - 145 mmol/L [facility] Potassium 4.9 3.3 - 5.1 mmol/L [facility] Chloride 109(H) 96 - 108 mmol/L [facility] Carbon Dioxide 24 22 - 29 mmol/L [facility] Anion Gap 12 12 - 20 [facility] Urea Nitrogen (BUN) 47(H) 9 - 16 mg/dL [facility] Creatinine, Serum 1.46(H) 0.5 - 1.4 mg/dL [facility] Estimated Glomerular Filt Rate 49 [facility] Comment:Chronic Kidney Disea se: Estimated GFR < 60 mL/min/1.75q7Rwkate Kidney Disease: Estimated GFR < 15 mL/min/1.73m2 Glucose 87 60 - 115 mg/dL [facility] Calcium 9.5 8.4 - 10.2 mg/dL [facility] Blood Venous blood specimen / Unknown 02/10/2025 10:40 AM EDT 02/10/2025 1:58 PM EDT us Stan Fletcher MD LAB BLOOD ORDERABLES Final Result [facility] [address] [place] [address] [phone] documented in this encounter Visit Diagnoses Diagnosis Type 2 diabetes mellitus without complication, with long-term current use of insulin ([facility])- Primary Primary hypertension Unspecified essential hypertension Diabetes mellitus due to underlying condition with hyperglycemia, with long-term current use of insulin ([facility]) documented in this encounter Additional Health Concerns Assessment Noted Time PHQ-9 Depression Total Score: 0 11/06/19 25 9:29 AM EDT documented as of this encounter Care Teams Shrimping Boat Captain Relationship Specialty Start Date End Date Stan Fletcher MD [address] [place] [address] PCP - General Internal Medicine 08/20/18 documented as of this encounter
--- OUTSIDE RECORDS SUMMARY | 2025-05-05 12:44 | XMS_ITS | Encounter Summary ---
Author Organization [employer] Address 75 [facility] 7t [place] [address] Care Team Providers Care Animation Producer Name Role Phone Stan Fletcher MD Primary Care Provider [phone] Encounter Details Date Type Department Care Team ([facility] Contact Info) Description 11/12/2024 Orders Only [facility] [address] [place] [address] ProviderMarcelle MD Social History Tobacco Use Types Packs/Day Years [...] EDT documented in this encounter Results * Diabetes Eye Exam (11/11/2024 4:01 PM EDT) us Historical Provider HEALTH MAINTENANCE Final Result documented in this encounter Visit Diagnoses Not on filedocumented in this encounter Additional Health Concerns Assessment Noted Time PHQ-9 Depression Total Score: 0 11/06/19 9:29 AM EDT documented as of this encounter Care Teams Animation Producer Relationship Specialty Start Date End Date Stan Fletcher MD [address] [place] [address] PCP - General Internal Medicine 08/20/18 documented as of this encounter
--- OUTSIDE RECORDS SUMMARY | 2025-05-05 12:44 | XMS_ITS | Encounter Summary ---
Author Organization [employer] Address [address] [place] [address] 7 [place] [address] Care Team Providers Care It Security Architect Name Role Phone Stan Fletcher MD Primary Care Provider [phone] Reason for Visit * Reason Onset Date Comments Nurse Triage 08/23/2023 Encounter Details Date Type Department Care Team ([facility] st Contact Info) Description 08/23/2023 Telephone [facility] CHC MED & PEDS [address] [place], [place] [phone] Stan Fletcher MD [address] [place], [place] [phone] Nurse Triage Social History Tobacco Use Types [...] 3:50 PM EST Called pt. Back via community services officer #[phone]. Called pt. Asked him if he has any Covid tests at home to test himself for Covid. Pt. States he has a test at home but, he currently at Pharmacy picking up some OTC cough medicine. I will call pt. Back at 430pm to see what Covid test result is as pt. States he lives [place] from [facility]. Called pt. Back via community services officer #[phone]. Pt. Took Covid test and it came out Negative. Pt. ShowedASL oracle programmer over video and she states that only the control line is showing and only 1 line on home Covid test. Advised pt. That per Dr. Fletcher he would like pt. To go to Walk in at [facility] tomorrow 08/23/2023 in the am to get his lungs listened to and to assess left lung congestion. Pt. States understanding and will go to walk in at [facility] at 830am when walk in opens. * Telephone Encounter - Vivi Salazar RN - 08/23/2023 2:53 PM EST Called pt. Back via community services officer. Reel Operator #[id number]. Pt. States that he has a productive [...] accepted this outcome Please contact pt @ [phone] Sign Language documented in this encounter Plan of Treatment Not on file documented as of this encounter Visit Diagnoses Not on filedocumented in this encounter Care Teams It Security Architect Relationship Specialty Start Date End Date Stan Fletcher MD [address] [place] [address] PCP - General Internal Medicine 08/20/18 documented as of this encounter
--- OUTSIDE RECORDS SUMMARY | 2025-05-05 12:44 | XMS_ITS | Encounter Summary ---
Author Organization [employer] Address 75 [facility] 7 [place] [address] Care Team Providers Care Mold Forms Builder Name Role Phone Stan Fletcher MD Primary Care Provider [phone] Reason for Visit * Reason Onset Date Comments Medication Question 04/29/2025 Encounter Details Date Type Department Care Team ([facility] Contact Info) Description 04/29/2025 Telephone [facility] CHC MED & PEDS [address] [place], [place] [phone] Stan Fletcher MD [address] [place] [address] Medication Question Social History Tobacco Use Types Packs/Day Years [...] encounter Miscellaneous Notes * Telephone Encounter - Fish French - 04/29/2025 9:12 AM EDT Tc from pt requesting a call back to discuss SITagliptin (Januvia) 100 MG tablet , pt says after taking this medication he is experiencing very loose stool . Contact pt at [phone] (sign language) documented in this encounter Plan of Treatment Not on file documented as of this encounter Visit Diagnoses Not on filedocumented in this encounter Additional Health Concerns Assessment Noted Time PHQ-9 Depression Total Score: 0 11/06/19 25 9:29 AM EDT documented as of this encounter Care Teams Mold Forms Builder Relationship Specialty Start Date End Date Stan Fletcher MD [address] [place] [address] PCP - General Internal Medicine 08/20/18 documented as of this encounter
--- OUTSIDE RECORDS SUMMARY | 2025-05-05 12:45 | XMS_ITS | Clinical Summary ---
Author Organization [employer] Address [address] [place] [address] 7 [place] [address] Care Team Providers Care Turbine Mechanic Name Role Phone Stan Fletcher MD Primary Care Provider [phone] Allergies Active Allergy Reactions Criticality Noted Date [...] BLOOD SUGAR FOUR TIMES DAILY 2022 Active Livalo 2 MG tabletIndications:Pure hypercholesterolemia [...] mL 11 2022 Active Continuous Blood Gluc Ticket Machine Operator (FreeStyle Cathryn 2 [place]) deviceIndications:Type 2 diabetes mellitus without complication, with long-term current use of insulin ([facility]) To use daily 1 each 2022 Active Continuous Blood Gluc Sensor (FreeStyle Cathryn 2 Sensor) miscIndications:Type 2 diabetes mellitus without complication, with long-term current use of insulin ([facility]) To use daily 2 each 11 2022 [...] hyperglycemia, with long-term current use of insulin ([facility]) INJECT 12 UNITS SUBCUTANEOUSLY THREE TIMES DAILY [...] complication, with long-term current use of insulin ([facility]) Inject 12 Units as directed 3 times daily. 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 Do not crush or chew. 60 capsule 11 2023 Active Continuous Glucose Ticket Machine Operator (FreeStyle Cathryn 2 [place]side) deviceIndications:Type 2 diabetes mellitus without complication, with long-term current use of insulin ([facility]) Scan sensor every 8 hours 1 each 2023 Active Continuous Glucose Sensor (FreeStyle Cathryn 2 Sensor) miscIndications:Type 2 diabetes mellitus without complication, with long-term current use of insulin ([facility]) Apply 1 sensor every 14 days 2 each 2023 Active atorvastatin (Lipitor) 40 MG tabletIndications:Pure hypercholesterolemia TAKE ONE TABLET EVERY MORNING 30 tablet 11 2023 Active Lantus SoloStar 100 UNIT/ML pen INJECT 60 UNITS SUBCUTANEOUSLY ONCE DAILY 30 mL 2023 Active TechLite Pen [place] 32G X 6 MM misc USE FOUR TIMES DAILY] 100 each 2023 [...] Once per day. 30 tablet 11/05 Active hydroCHLOROthiazide 12.5 MG tabletIndications:Prim janeth hypertension Take 1 tablet (12.5 mg) by mouth Once per day. 30 tablet 12/10 Active oxyCODONE-acetaminophe n (Percocet) 7.5-325 MG tabletIndications:Acut e pain of left shoulder Take 1 tablet by mouth every 6 (six) hours if needed for severe pain. 15 tablet 2024 Active dextran 70-hypromellose (artificial tears) 0.1-0.3 % ophthalmic solutionIndications:Zuluaga bconjunctival hemorrhage of left eye Administer 1 drop into the left eye if needed in the morning, at noon, and at bedtime for dry eyes. 15 mL 12/22 Active insulin lispro (HumaLOG KWIKPEN) 100 UNIT/ML injection INJECT 12 UNITS SUBCUTANEOUSLY THREE TIMES DAILY 15 mL 2024 Active glipiZIDE (Glucotrol) 5 MG tablet TAKE ONE TABLET THREE TIMES DAILY BEFORE A MEAL 270 tablet 2024 Active tiZANidine (Zanaflex) 4 MG tabletIndications:Righ t sided sciatica TAKE ONE TABLET BY MOUTH EVERY 6 TO 8 HOURS NEEDED. DO NOT EXCEED THREE TABLETS PER 24 HOURS. 60 tablet 2024 Active SITagliptin (Januvia) 100 MG tabletIndications:Type 2 diabetes mellitus without complication, with long-term current use of insulin ([facility]) Take 1 tablet (100 mg) by mouth Once per day. 90 tablet 3 2024 Active metoprolol succinate XL (Toprol XL) 25 MG 24 hr tabletIndications:Prim janeth hypertension Take 1 tablet (25 mg) by mouth Once per day. Do not crush or chew. 30 tablet 04/22 Active glucose blood (OneTouch Ultra) test stripIndications:Type 2 diabetes mellitus without complication, with long-term current use of insulin ([facility]) To use 2 times a day 100 strip 2024 Active OneTouch Ultra test strip TEST BLOOD SUGAR THREE TIMES DAILY. 100 strip 11 04/22 Discontinued( Reorder (will not trigger notification to Pharmacy)) glucose blood test strip Check the FS 2 times a day 100 each 12 04/11 [employer] (Autolet) lancing device 1 each by Other route 2 times daily. 100 each 11 04/11 glucose blood (OneTouch Ultra) test strip Use to test blood sugar 2 times daily 100 each 12 04/11 atenolol (Tenormin) 25 MG tabletIndications:Prim janeth hypertension Take 1 tablet (25 mg) by mouth Once per day. 30 tablet 11 04/22 Discontinued( Side effects) Active Problems Problem Noted Date Diagnosed Date [...] Encounters Date Type Department Care Team Description 05/05/2025 Orders Only GENERIC EXTERNAL DATA DEPARTMENT Provider, Generic External Data 04/29/2025 Telephone [facility] [address] [place] [address] Stan Fletcher MD Medication Question 04/22/2025 2:15 PM EDT Office Visit [facility] [address] [place] [address] Stan Fletcher MD Type 2 diabetes mellitus without complication, with long-term current use of insulin ([facility]) (Primary Dx); Primary hypertension; Right hip pain 04/22/2025 Travel 04/21/2025 Telephone [facility] [address] [place] [address] Stan Fletcher MD Chart Prep 04/21/[address] [address] Stan Fletcher MD Nurse Triage 03/30/2025 Telephone [facility] [address] [place] [address] Stan Fletcher MD Med Refill 03/19/[address] [address] Stan Fletcher MD Appointment Request 03/16/2025 Telephone [facility] [address] [place] [address] Stan Fletcher MD Medication Question 03/04/2025 Telephone [facility] [address] [place] [address] Stan Fletcher MD Medication Question 03/03/2025 Telephone [facility] [address] [place] [address] Stan Fletcher MD Nurse Triage 03/02/2025 Refill [facility] [address] [place] [address] Stan Fletcher MD Right sided sciatica 02/25/2025 Telephone [facility] [address] [place] [address] Stan Fletcher MD Referral 02/24/2025 Telephone [facility] [address] [place] [address] Stan Fletcher MD Appointment Request 02/23/2025 Telephone [facility] [address] [place] [address] Stan Fletcher MD Medication Question 02/23/2025 Refill [facility] [address] [place] [address] Stan Fletcher MD Right sided sciatica 02/13/2025 Orders Only [facility] [address] [place] [address] Stan Fletcher MD Type 2 diabetes mellitus without complication, with long-term current use of insulin ([facility]) (Primary Dx) 02/13/[address] [address] Stan Fletcher MD Nurse Triage 02/12/2025 Telephone [facility] [address] [place] [address] Stan Fletcher MD Medication Question 02/12/2025 Refill [facility] [address] [place] [address] Stan Fletcher MD 02/11/2025 Results Follow-Up [facility] [address] [place] [address] Stan Fletcher MD POCT Glucose, Hepatitis C Antibody with Reflex to HCV, RNA, Quantitative, Real-Time PCR 02/11/2025 Results Follow-Up [facility] [address] [place] [address] Rupa Rain, CAPRICE Basic Metabolic Panel 02/10/2025 10:00 AM EDT Office Visit [facility] [address] [place] [address] Stan Fletcher MD Primary hypertension (Primary Dx); Type 2 diabetes mellitus without complication, with long-term current use of insulin ([facility]); Herniation of intervertebral disc between L4 and L5 02/10/2025 Travel 02/03/2025 Telephone [facility] [address] [place], [place] [phone] Stan Fletcher MD from Last 3 Months Immunizations Immunization Administration Dates Next Due Influenza Injectable Quadriv alant Preservative Free IIV4 MDCK 07/19/2023,04/20/2022,06/25/2021 Influenza injectable quadriv alent IIV4 with preservative 06/03/2019,06/28/2016 Influenza injectable quadriv alent preservative free 05/01/2020,07/29/2018,05/30/2017 Influenza, IIV3, injectable 04/18/2011, 0 Influenza, Injectable, MDCK, preservative free 04/25/2024 Influenza, Recombinant, inje ctable, preservative free 04/05/2025 Influenza, Split (incl. martha fied surface antigen) [...] Sign Reading Time Taken Comments Blood Pressure 156/81 04/22/2025 2:16 PM EDT Pulse 67 04/22/2025 2:16 PM EDT Temperature 36.8 C (98.2 F) 02/10/2025 10:05 AM EDT Respiratory Rate 20 04/22/2025 2:16 PM EDT Oxygen Saturation 98% 04/22/2025 2:16 PM EDT Inhaled Oxygen Concentration - - Weight 89.8 kg (198 lb) 04/22/2025 2:16 PM EDT Height 173 cm (5' 8.11 ) 04/22/2025 2:16 PM EDT Body Mass Index 30.01 04/22/2025 2:16 PM EDT Plan of Treatment Health Maintenance Due Date Last Done Comments CT Colonography 1962 Colonoscopy 1962 FIT 1962 Sigmoidoscopy 1962 Disability Screening 1962 FOBT 12/05/2024 12/06/2023 COVID-19 Vaccine ( season) 2025 08/23/2023, 06/10/2022, 07/18/2021, Additional history exists DTaP/Tdap/Td Vaccines (2 - Td or Tdap) 10/19/2025 10/20/2015 Diabetes: Hemoglobin A1C 10/20/2025 025, 12/22/2024, 09/11/2024, Additional history exists Alcohol/Substance Use Screening 11/05/2025 11/05/2024 Depression Screening 11/05/2025 11/05/2024, 11/06/19 Diabetes: Urine Protein Screening 11/05/2025 11/05/2024 SDOH Screening 11/05/2025 11/05/2024 Eye Exam 11/11/2025 11/11/2024, 10/20/2022 Lipid Panel 11/12/2025 11/12/2024 Diabetes: Foot Exam 02/10/2026 02/10/2025, Tobacco Screening 04/22/2026 04/22/2025 Colorectal Cancer Screening 12/05/2026 FIT DNA/Cologuard 12/05/2026 12/06/2023 Zoster Vaccines Completed 01/24/2022, 11/23/2021 Pneumococcal Vaccine: 50+ Years Completed 07/26/2023, 06/03/2019 RSV Patients and Patients Aged 60 years or older Completed 04/25/2024 Hepatitis C Screening Completed 02/10/2025 Influenza Vaccine Completed 04/05/2025, , 07/19/2023, Additional history exists HIB Vaccines Aged Out No longer eligi [...] patient's age to complete this topic Meningococcal B Vaccine Aged Out No l onger eligible based on patient's age to complete [...] WHOLE BLOOD Routine 05/05/2025 10:14 AM EDT POCT GLYCATED HEMOGLOBIN, TOTAL Routine 04/22/2025 4:07 PM EDT Type 2 diabetes mellitus without complication, with long-term current use of insulin (CMS/HCC) POCT GLUCOSE Routine 04/22/2025 4:07 PM EDT Type 2 diabetes mellitus without complication, with long-term current use of insulin (CMS/HCC) POCT GLUCOSE Routine 02/10/2025 12:22 PM EDT Type 2 diabetes mellitus without complication, with long-term current use of insulin (CMS/HCC) HEPATITIS C AB W/REFL TO HCV RNA, QN, PCR Routine 02/10/2025 10:40 AM EDT Type 2 diabetes mellitus without complication, with long-term current use of insulin (CMS/HCC) BASIC METABOLIC PANEL Routine 02/10/2025 10:40 AM EDT Primary hypertension LIPID PANEL, STANDARD Routine 11/12/2024 11:34 AM EDT Type 2 diabetes mellitus without complication, with long-term current use of insulin (CMS/HCC) HM DIABETES EYE EXAM Routine 11/11/2024 4:01 PM EDT ALBUMIN, RANDOM URINE W/CREATININE Routine 11/05/2024 10:17 AM EDT Type 2 diabetes mellitus without complication, with long-term current use of insulin (CMS/HCC) LAB COLOGUARD COLON CANCER SCREEN Routine 12/06/2023 7:58 AM EDT Screening for colon cancer from Last 3 Months or Most Recently Relevant to Health Maintenance Results * (ABNORMAL) ALT (05/05/2025 11:40 AM EDT) Alanine Aminotransferase 72(H) 0 - 40 U/L [facility] 05/05/2025 11:4 0 AM EDT 05/05/2025 11:40 AM EDT Generic External Data Provider LAB BLOOD ORDERAB LES Final Result Performing Organization Address [facility]/ZIP Co de Phone Number [facility] [address] [place] [phone] * (ABNORMAL) AST (05/05/2025 11:40 AM EDT) Pathologist [facility] Aspartate Amino Transferase 49(H) 5 - 37 U/L [facility] 05/05/2025 11:4 0 AM EDT 05/05/2025 11:40 AM EDT Generic External Data Provider LAB BLOOD ORDERAB LES Final Result Performing Organization Address [facility] Co de Phone Number [facility] [address] [place] [phone] * (ABNORMAL) Basic Metabolic Panel (05/05/2025 11:40 AM EDT) Only the most recent of2 resultswithin the time period is included. Pathologist [facility] Sodium 142 135 - 145 mmol/L [facility] Potassium 4.4 3.3 - 5.1 mmol/L [facility] Chloride 108 96 - 108 mmol/L [facility] Carbon Dioxide 27 22 - 29 mmol/L [facility] Anion Gap 11(L) 12 - 20 [facility] Urea Nitrogen (BUN) 32(H) 9 - 16 mg/dL [facility] Creatinine, Serum 1.41(H) 0.5 - 1.4 mg/dL [facility] Estimated Glomerular Filt Rate 51 [facility] Comment:Chronic Kidney Disea se: Estimated GFR < 60 mL/min/1.07m4Cuygvt Kidney Disease: Estimated GFR < 15 mL/min/1.73m2 Glucose 100 60 - 115 mg/dL [facility] Calcium 9.4 8.4 - 10.2 mg/dL [facility] 05/05/2025 11:4 0 AM EDT 05/05/2025 11:40 AM EDT us Generic External Data Provider LAB BLOOD ORDERAB LES Final Result Performing Organization Address [facility]/ZIP Co de Phone Number [facility] [address] [place] [phone] * Glucose, Whole Blood (05/05/2025 10:14 AM EDT) Glucose, Whole Blood 78 60 - 115 mg/dL [facility] Comment:METER #: [id number] Testing performed in the Endocrinology Department [address] , [address], [facility]. 05/05/2025 10:1 4 AM EDT 05/05/2025 10:17 AM EDT us Generic External Data Provider LAB BLOOD ORDERAB LES Final Result Performing Organization Address [facility] Co de Phone Number [facility] [address] [place] [phone] * (ABNORMAL) POCT HGB A1C (04/22/2025 4:07 PM EDT) Hemoglobin A1C 6.7(A) 4.0 - 5.7 % QC Media Lot # [id number] Lot# Expiration Date [id number] Blood 04/22/2025 4:07 PM EDT us Stan Fletcher MD POINT OF CARE TEST ENTER/ED IT ORDERABLES Final Result * (ABNORMAL) POCT Glucose (04/22/2025 4:07 PM EDT) Only the most recent of2 resultswithin the time period is included. Glucose Blood, POC 248(A) 60 - 200 mg/dL QC Media Lot # [id number] Lot# Expiration Date [id number] Comment:random Blood Capillary blood specimen / Unknown 04/22/2025 4:07 PM EDT Stan Fletcher MD POINT OF CARE TEST ENTER/ED IT ORDERABLES Final Result * Hepatitis C Antibody with Reflex to HCV, RNA, Quantitative, Real-Time PCR (02/10/2025 10:40 AM EDT) Hepatitis C Antibody Nonreactive Nonreactive [facility] Comment:Antibodies to HCV no t detected; does not exclude early acuteHCV infection. Blood Venous blood specimen / Unknown 02/10/2025 10:40 AM EDT 02/10/2025 1:58 PM EDT Stan Flecther MD LAB BLOOD ORDERABLES Final Result [facility] [address] [place] [phone] * (ABNORMAL) Lipid Panel, Standard (11/12/2024 11:34 AM EDT) Triglycerides 176(H) <150 mg/dL [facility] Comment:Desirable Triglyceri de: less than 150 mg/dLBorderline High Triglyceride 150-199 mg/dLHigh Triglyceride: 200-499 mg/dLVery High Triglyceride: greater than or equal to 5OO mg/dL Cholesterol 116 <200 mg/dL [facility] Comment:Desirable Cholestero l: less than 200 mg/dLBorderline High Cholesterol: 200-239 mg/dLHigh Cholesterol: greater than 239 mg/dL LDL Cholesterol Calculated 49 <100 mg/dL [facility] Comment:Desirable LDL: less than 100 mg/dLNear Optimal/Above Optimal LDL: 110- 129 mg/dLBorderline High LDL: 130-159 mg/dLHigh LDL: 160-189 mg/dLVery High LDL: greater than or equal to 190 mg/dL HDL Cholesterol 32(L) >40 mg/dL [facility] Comment:Desirable HDL: great er than 40 mg/dL Note: This HDL assay may give artificially low results in patients with liver disease. Blood Venous blood specimen / Unknown 11/12/2024 11:34 AM EDT 11/12/2024 2:15 PM EDT Stan Fletcher MD LAB BLOOD ORDERABLES Final Result Performing Organization Address City/[facility]/ZIP Co de Phone Number [facility] [address] [place] [phone] * Diabetes Eye Exam (11/11/2024 4:01 PM EDT) us Historical Provider HEALTH MAINTENANCE Final Result * Albumin, Random Urine W/Creatinine (11/05/2024 10:17 AM EDT) Creatinine, Urine 98.24 mg/dL [facility] Microalbumin Urine 20.0 mg/L [facility] Microalbum Creatinine Ratio Ur 20.3 <30 ug/mg cr [facility] Comment:Albumin/Creatinine R atio Reference Ranges: Normal: < 30 ug/mg creatinine Microalbuminuria: 30 - 300 ug/mg creatinineClinical Albuminuria: > 300 ug/mg creatinine Urine (Urine, Random) 11/05/2024 10:17 AM EDT 11/05/2024 2:07 PM EDT us Stan Fletcher MD LAB URINE ORDERABLES Final Result Performing Organization Address City/[facility]/ZIP Co de Phone Number [facility] [address] [place] [phone] * (ABNORMAL) Cologuard?? colon cancer screening (12/06/2023 7:58 AM EDT) Cologuard Result Positive( A) Negative 12/13/2023 5:48 PM EDT [facility] (CLIA #:[id number]) Comment: POSITIVE TEST RESULT. A positive Cologuard result should be followed with a colonoscopy or visual examination of the colon. The normal value (reference range) for this assay is negative. TEST DESCRIPTION: Composite algorithmic analysis of stool DNA-biomarkers with hemoglobin immunoassay. Quantitative values of individual biomarkers are not [...] screened with both Cologuard and colonoscopy. (Saritha Goel. et al, N Engl J Med 2014;370(14):8469-5661.) Cologuard may produce a false negative or false positive result (no colorectal cancer or precancerous polyp present at colonoscopy follow up). A negative Cologuard test result does not guarantee the absence of CRC or advanced adenoma (pre-cancer). The current Cologuard screening interval is every 3 years. ([place] [employer] Society and U.S. Multi-Society Task Force). Cologuard performance data in a 10,000 patient pivotal study using colonoscopy as the reference method can be accessed at the following location: [email or web address]/results. Additional description of the Cologuard test process, warnings and precautions can be found at [email or web address]. Stool specimen (specimen) Rectal contents / Unknown 12/06/2023 7:58 AM EDT 12/07/2023 10:55 AM EDT Stan Fletcher MD LAB MOLECULAR DIAGNOSTICS O RDERABLES Final Result [facility] (CLIA #:[id number]) [address] [place] [place] [address], [place] [phone] from Last 3 Months or Most Recently Relevant to Health Maintenance Insurance 20[address] [facility] [address] [place], [place] [facility] DUAL COMPLETE HMO [facility] [address] [place], [place] Care Teams Turbine Mechanic Relationship Specialty Start Date End Date Beauzile, Thevenin, MD [address] [place] [phone] PCP - General Internal Medicine 08/20/18
--- OUTSIDE RECORDS SUMMARY | 2025-05-05 12:45 | XMS_ITS | Encounter Summary ---
Author Organization [employer] Address [address] [facility] 7 [place] [address] Care Team Providers Care Regional Liaison Name Role Phone Stan Fletcher MD Primary Care Provider [phone] [phone] Encounter Details Date Type Department Care Team ([facility] Contact Info) Description 12/07/2022 Orders Only [facility] [address] [place], [place] [phone] Stan Fletcher MD [address] [place] [address] Palpitations (Primary Dx) Social History Tobacco Use [...] Primary documented in this encounter Care Teams Regional Liaison Relationship Specialty Start Date End Date Stan Fletcher MD [address] [place], [place] [phone] PCP - General Internal Medicine 08/20/18 documented as of this encounter
--- OUTSIDE RECORDS SUMMARY | 2025-05-05 12:45 | XMS_ITS | Encounter Summary ---
Author Organization [employer] Address [address] [place] [address] 7 [place] [address] Care Team Providers Care Phlebotomy Support Tech Name Role Phone Stan Fletcher MD Primary Care Provider [phone] Reason for Visit * Reason Comments Med Refill Encounter Details Date Type Department Care Team ([facility] Contact Info) Description 01/09/2023 Refill [facility] [address] [place] [address] Stan Fletcher MD [address] [place] [address] Social History Tobacco Use Types Packs/Day Years [...] on filedocumented in this encounter Care Teams Phlebotomy Support Tech Relationship Specialty Start Date End Date Stan Fletcher MD [address] [place] [phone] PCP - General Internal Medicine 08/20/18 documented as of this encounter
--- OUTSIDE RECORDS SUMMARY | 2025-05-05 12:45 | XMS_ITS | Encounter Summary ---
Author Organization [employer] Address [address] [facility] 7 [place] [address] Care Team Providers Care Shot Core Drill Operator Helper Name Role Phone Stan Fletcher MD Primary Care Provider [phone] Reason for Visit * Reason Onset Date Comments Nurse Triage 02/13/2025 Encounter Details Date Type Department Care Team ([facility] st Contact Info) Description 02/13/2025 Telephone [facility] [address] [place] [address] Stan Fletcher MD [address] [place], [place] [phone] Nurse Triage Social History Tobacco Use Types [...] Telephone Encounter - Vivi Salazar RN - 02/13/2025 10:22 AM EDT Called pt. 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 Pt states that he was prescribed Aspirin 10mg every am a long time ago in the [place] and he stopped taking it in December 2024 due to it causing redness in his eyes. Pt. States his eyes are clear now without redness. I advised that we didn't even have that medication in his chart but I will let PCP know. Pt. Also states that he is still waiting for his arm sensor to measure his blood gl;ucose. He states that it was supposed to be done 2 months ago and he still has not heard anything. Will send this note to PCP and [facility] nurses to fu * Telephone Encounter - Pamela Mendez - 02/13/2025 10:06 AM EDT Symptom: Eye Redness Without Pus or Discharge Outcome: Schedule an appointment to be seen within 24 hours Reason: Caller denied all higher acuity questions The caller accepted this outcome. [phone] (Sign Language) documented in this encounter Plan of Treatment Not on file documented as of this encounter Visit Diagnoses Not on filedocumented in this encounter Additional Health Concerns Assessment Noted Time PHQ-9 Depression Total Score: 0 11/06/19 25 9:29 AM EDT documented as of this encounter Care Teams Shot Core Drill Operator Helper Relationship Specialty Start Date End Date Stan Fletcher MD [address] [place] [phone] PCP - General Internal Medicine 08/20/18 documented as of this encounter
--- OUTSIDE RECORDS SUMMARY | 2025-05-05 12:45 | XMS_ITS | Encounter Summary ---
Author Organization [employer] Address [address] [place] [address] Care Team Providers Care Global Program Manager Name Role Phone Stan Fletcher MD Primary Care Provider [phone] Reason for Referral * Consultation (Routine) - Canceled Specialty Diagnoses / Procedures Referred By Contivan t Referred To Contact Endocrinology Diagnoses Type 2 diabetes mellitus without complication, with long-term current use of insulin (CMS/HCC) Stan Fletcher MD [address] [place] [address] Phone: tel: fax: Referral ID Status Reason Start Date Expiration Date Visits Requested Visits Authorized [id number] Canceled Specialty Services Required 02/13/2025 02/13/2026 1 1 Encounter Details Date Type Department Care Team ([facility] Contact Info) Description 02/13/2025 Orders Only [facility] CHC MED & PEDS [address] [place] [address] Stan Fletcher MD [address] [place] [address] Type 2 diabetes mellitus without complication, with long-term current use of insulin (CMS/HCC) (Primary Dx) Social History Tobacco Use Types [...] Schedule Referral to Endocrinology Outpatient Referral Routine Type 2 diabetes mellitus without complication, with long-term current use of insulin (CMS/HCC) Expected: 02/13/2025 (Approximate), Expires: 02/13/2026 documented as of this encounter Visit Diagnoses Diagnosis Type 2 diabetes mellitus without complication, with long-term current use of insulin (CMS/HCC)- Primary documented in this encounter Additional Health Concerns Assessment Noted Time PHQ-9 Depression Total Score: 0 11/06/19 25 9:29 AM EDT documented as of this encounter Care Teams Global Program Manager Relationship Specialty Start Date End Date Stan Fletcher MD [address] [place] [address] PCP - General Internal Medicine 08/20/18 documented as of this encounter
--- OUTSIDE RECORDS SUMMARY | 2025-05-05 12:45 | XMS_ITS | Encounter Summary ---
Author Organization [employer] Address [address] [place] [address] 7 [place] [address] Care Team Providers Care Disposal Man Name Role Phone Stan Fletcher MD Primary Care Provider [phone] Reason for Visit * Reason Comments Med Refill Encounter Details Date Type Department Care Team ([facility] Contact Info) Description 02/23/2025 Refill [facility] CHC MED & PEDS [address] [place], [place] [phone] Stan Fletcher MD [address] [place] [address] Right sided sciatica Social History Tobacco Use [...] documented as of this encounter Care Teams Disposal Man Relationship Specialty Start Date End Date Stan Fletcher MD [address] [place] [address] PCP - General Internal Medicine 08/20/18 documented as of this encounter
--- OUTSIDE RECORDS SUMMARY | 2025-05-05 12:45 | XMS_ITS | Encounter Summary ---
Author Organization [employer] Address [address] [facility] 7 [place] [address] Care Team Providers Care Cell Changer Name Role Phone Stan Fletcher MD Primary Care Provider [phone] Reason for Visit * Reason Onset Date Comments Medication Question 03/16/2025 Encounter Details Date Type Department Care Team ([facility] Contact Info) Description 03/16/2025 Telephone [facility] CHC MED & PEDS [address] [place], [place] [phone] Stan Fletcher MD [address] [place] [address] Medication Question Social History Tobacco Use Types [...] encounter Miscellaneous Notes * Telephone Encounter - Eva Morton - 03/16/2025 10:02 AM EDT Tc from pt requesting to change glucose sensor. Pt is requesting Freestyle mingo 3. Pt stated it issmaller. Contact pt at [phone] (ASL) documented in this encounter Plan of Treatment Not on file documented as of this encounter Visit Diagnoses Not on filedocumented in this encounter Additional Health Concerns Assessment Noted Time PHQ-9 Depression Total Score: 0 11/06/19 25 9:29 AM EDT documented as of this encounter Care Teams Cell Changer Relationship Specialty Start Date End Date Stan Fletcher MD [address] [place] [address] PCP - General Internal Medicine 08/20/18 documented as of this encounter
== END 2025-05-05 11:08 | disposition home or self-care (01) ==
LOC: HO.ENCR 09:52
PROVIDERS: PCP Internal Medicine; Visit Provider Physician Assistant Medical
DX: E11.9 Type 2 diabetes mellitus without complications (principal); Z79.4 Long term (current) use of insulin

== ENCOUNTER 2025-05-07 15:23 | Outpatient (REF) | payer MEDICARE, MEDICAID, SELFPAY ==
--- OUTSIDE RECORDS SUMMARY | 2025-05-07 14:45 | XMS_ITS | Encounter Summary ---
Author Organization [employer] Address [address] [place] [address] 7 [place] [address] Care Team Providers Care Ux Designer Name Role Phone Stan Fletcher MD Primary Care Provider [phone] Reason for Visit * Reason Comments Hypertension Diabetes Diarrhea Encounter Details Date Type Department Care Team ([facility] Contact Info) Description 05/07/2025 2:45 PM EDT Office Visit [facility] MED & PEDS [address] [place], [place] [phone] Stan Fletcher MD [address] [place] [address] Diarrhea, unspecified type (Primary Dx); Primary hypertension; Type 2 diabetes mellitus without complication, with long-term current use of insulin ([facility]); Transaminitis; Irritant contact dermatitis due to other agents; Primary insomnia Social History Tobacco Use Types Packs/Day Years [...] Sign Reading Time Taken Comments Blood Pressure 146/80 05/07/2025 2:51 PM EDT Pulse 59 05/07/2025 2:51 PM EDT Temperature - - Respiratory Rate 20 05/07/2025 2:51 PM EDT Oxygen Saturation 97% 05/07/2025 2:51 PM EDT Inhaled Oxygen Concentration - - Weight 89.8 kg (198 lb) 05/07/2025 2:51 PM EDT Height 173 cm (5' 8.11 ) 05/07/2025 2:51 PM EDT Body Mass Index 30.01 05/07/2025 2:51 PM EDT documented in this encounter Progress Notes * Satn Fletcher MD - 05/07/2025 2:45 PM EDT SUBJECTIVE Nick Escobar is a 64 y.o. male who presents for Hypertension, Diabetes, and Diarrhea. Hypertension This is a chronic problem. Pertinent negatives include no anxiety, blurred vision, chest pain, headaches, malaise/fatigue, neck pain, orthopnea, palpitations, peripheral edema, PND, shortness of breath or sweats. Diabetes He presents for his follow-up diabetic visit. He has type 2 diabetes mellitus. Pertinent negatives for hypoglycemia include no confusion, dizziness, headaches, mood changes, nervousness/anxiousness, pallor, seizures, sleepiness, speech difficulty, sweats or tremors. Pertinent negatives for diabetesinclude no blurred vision, no chest pain, no fatigue, no foot paresthesias, no polyphagia, no polyuria and no weight loss. Diarrhea This is a new problem. The current episode started more than 1 month ago. The problem occurs 2 to 4times per day. Pertinent negatives include no abdominal pain, arthralgias, fever, headaches, sweats, URI or weight loss. H/o watery diarrhea made of 2 to 4 BM a day x ~ 2 months. Not associated w/ fever. No sick contact.There are 6 people in the household. Nobody is sick. Shook Machine Operator Eleni # [id number] Patient is also complaining of difficulty staying asleep for the last few weeks. Problem List[1] Allergies[2] Medications Ordered Prior to Encounter[3] Review of Systems Constitutional: Negative for fatigue, fever, malaise/fatigue and weight loss. Eyes: Negative for blurred vision. Respiratory: Negative for shortness of breath. Cardiovascular: Negative for chest pain, palpitations, orthopnea and PND. Gastrointestinal: Positive for diarrhea. Negative for abdominal pain. Endocrine: Negative for polyphagia and polyuria. Musculoskeletal: Negative for arthralgias and neck pain. Skin: Negative for pallor. Neurological: Negative for dizziness, tremors, seizures, speech difficulty and headaches. Psychiatric/Behavioral: Negative for confusion. The patient is not nervous/anxious. OBJECTIVE There were no vitals filed for this visit. Physical Exam Constitutional: General: He is not in acute distress. Appearance: Normal appearance. He is not ill-appearing, toxic-appearing or diaphoretic. Cardiovascular: Rate and Rhythm: Normal rate. Pulmonary: Effort: Pulmonary effort is normal. Abdominal: Palpations: Abdomen is soft. Comments: Hyperactive bowel sounds. Skin: Comments: Erythema exclusively noted at the site the Band-Aid was applied with exactly the shape ofthe Band-Aid Neurological: General: No focal deficit present. Mental Status: He is alert. Psychiatric: Mood and Affect: Mood normal. Assessment/Plan Assessment/Plan [1] Patient Active Problem List Diagnosis Allergic rhinitis Bilateral deafness Chest pain Diabetes mellitus (CMS/HCC) Hypertensive disorder Palpitations Pure hypercholesterolemia Right inguinal hernia Herniation of intervertebral disc between L4 and L5 Anterolisthesis Drug-induced constipation Acute cough Nonspeaking deaf [2] Allergies Allergen Reactions Bee Pollen Hives Other Reaction(s): SWELLING and facial swelling Denture Adhesive Rash Wound Dressing Adhesive Rash Other Reaction(s): Rash, burning from EKG stickers Prednisone Other Reaction(s): heart palpitation, raises glucose levels Simvastatin Hives Sulfa Antibiotics Hives [3] Current Outpatient Medications on File Prior to [...] (one) time each day. Continuous Blood Gluc Fern Gatherer (FreeStyle Cathryn 2 Tell) device To use daily 1 each 0 Continuous Blood Gluc Sensor (FreeStyle Cathryn 2 Sensor) misc To use daily 2 each 11 Continuous Glucose Fern Gatherer (FreeStyle Cathryn 2 Tell) device Scan sensor every 8 hours 1 each 0 Continuous Glucose Sensor (FreeStyle Cathryn 2 Sensor) [facility] Apply 1 sensor every 14 days 2 each 11 cyanocobalamin (Vitamin B-12) 1000 MCG tablet Take 1 tablet by mouth 1 (one) time each day. cyclobenzaprine (Flexeril) 10 MG tablet Take 1 tablet (10 mg) by mouth 3 times daily for 10 days. 30 tablet 0 dextran 70-hypromellose (artificial tears) 0.1-0.3 % ophthalmic solution Administer 1 drop into theleft eye if needed in the morning, at noon, and at bedtime for dry eyes. 15 mL 0 docusate sodium (Colace) 100 MG capsule [...] CAPSULE THREE TIMES DAILY 180 capsule 5 gabapentin (Neurontin) 400 MG capsule Take 1 capsule (400 mg) by mouth 3 times daily. 90 capsule 11 glipiZIDE (Glucotrol) 5 MG tablet TAKE ONE TABLET THREE TIMES DAILY BEFORE A MEAL 270 tablet 3 glucose blood (SocialDiabetesuch Ultra) test strip To use 2 times a day 100 strip 11 hydroCHLOROthiazide 12.5 MG tablet Take 1 tablet (12.5 mg) by mouth Once per day. 30 tablet 11 insulin aspart (NovoLOG FLEXPEN) 100 UNIT/ML pen INJECT 12 UNITS SUBCUTANEOUSLY THREE TIMES DAILY 15 mL 5 insulin aspart FlexPen (NovoLOG) 100 UNIT/ML pen Inject 12 Units under the skin before breakfast, before lunch, and before evening meal. Inject 12 units subcutaneously 3 times Daily 12 mL 11 insulin lispro (HumaLOG KWIKPEN) 100 UNIT/ML injection INJECT 12 UNITS SUBCUTANEOUSLY THREE TIMES DAILY 15 mL 11 Insulin Lispro (HumaLOG) 100 UNIT/ML solution Inject 12 Units as directed 3 times daily. 10 mL 11 Lantus SoloStar 100 UNIT/ML pen INJECT 60 UNITS SUBCUTANEOUSLY ONCE DAILY 30 mL 11 Livalo 2 MG tablet Take 1 tablet by mouth in the morning. 90 tablet 3 loratadine (Claritin) 10 MG tablet TAKE ONE TABLET EVERY MORNING 30 tablet 5 losartan (Cozaar) 100 MG tablet Take 1 tablet (100 mg) by mouth Once per day. 30 tablet 11 melatonin 5 MG tablet One tab once a day. 30 tablet 3 methocarbamol (Robaxin) 750 MG tablet TAKE ONE TABLET FOUR TIMES DAILY FOR 10 DAYS 40 tablet 0 metoprolol succinate XL (Toprol XL) 25 MG 24 hr tablet Take 1 tablet (25 mg) by mouth Once per day.Do not crush or chew. 30 tablet 11 nabumetone (Relafen) 750 MG tablet TAKE ONE TABLET TWICE DAILY 60 tablet 5 oxyCODONE-acetaminophen (Percocet) 7.5-325 MG tablet Take 1 tablet by mouth every 6 (six) hours if needed for severe pain. 15 tablet 0 Pentips 31G X 5 [...] needed at bedtime forconstipation. 60 tablet 0 SITagliptin (Januvia) 100 MG tablet Take 1 tablet (100 mg) by mouth Once per day. 90 tablet 3 TechLite Pen Slick 32G X 6 MM misc USE FOUR TIMES DAILY] 100 each 11 tiZANidine (Zanaflex) 4 MG tablet TAKE ONE TABLET BY MOUTH EVERY 6 TO 8 HOURS NEEDED. DO NOT EXCEED THREE TABLETS PER 24 HOURS. 60 tablet 0 triamcinolone (Kenalog) 0.5 % ointment APPLY SPARINGLY TO THE AFFECTED AREA(S) TWICE DAILY 30 g 0 No current facility-administered medications on file prior to visit. documented in this encounter Plan of Treatment Scheduled Orders Name Type Priority Associated Diagnoses Orde r Schedule Stool - Gastrointestinal panel Microbiology Routine Diarrhea, unspecified type Expected: 05/07/2025 (Approximate), Expires: 05/07/2026 Hepatitis Panel, General Lab Routine Diarrhea, unspecified type Transaminitis Expected: 05/07/2025, Expires: 05/07/2026 documented as of this encounter Visit Diagnoses Diagnosis Diarrhea, unspecified type- Primary Primary hypertension Unspecified essential hypertension Type 2 diabetes mellitus without complication, with long-term current use of insulin ([facility]) Transaminitis Nonspecific elevation of levels of transaminase or lactic acid dehydrogenase (LDH) Irritant contact dermatitis due to other agents Primary insomnia Persistent disorder of initiating or maintaining sleep documented in this encounter Additional Health Concerns Assessment Noted Time PHQ-9 Depression Total Score: 0 11/06/19 25 9:29 AM EDT documented as of this encounter Care Teams Ux Designer Relationship Specialty Start Date End Date Stan Fletcher MD [address] [place] [address] PCP - General Internal Medicine 08/20/18 documented as of this encounter
--- OUTSIDE RECORDS SUMMARY | 2025-05-07 16:48 | XMS_ITS | Encounter Summary ---
Author Organization [employer] Address [address] [place] [address] Care Team Providers Care National Van Owner Operator Name Role Phone Stan Fletcher MD Primary Care Provider [phone] Encounter Details Date Type Department Care Team ([facility] Contact Info) Description 05/07/2025 Results Follow-Up [facility] MED & PEDS [address] [place], [place] [phone] Cheryl Melendez RN Glucose, Whole Blood, Basic Metabolic Panel, AST, ALT Social History Tobacco Use Types Packs/Day Years [...] encounter Miscellaneous Notes * Telephone Encounter - Cheryl Melendez RN - 05/07/2025 3:40 PM EDT Reviewed with provider during sick visit documented in this encounter Plan of Treatment Not on file documented as of this encounter Visit Diagnoses Not on filedocumented in this encounter Additional Health Concerns Assessment Noted Time PHQ-9 Depression Total Score: 0 11/06/19 25 9:29 AM EDT documented as of this encounter Care Teams National Van Owner Operator Relationship Specialty Start Date End Date Stan Fletcher MD [address] [place] [address] PCP - General Internal Medicine 08/20/18 documented as of this encounter
--- OUTSIDE RECORDS SUMMARY | 2025-05-07 16:48 | XMS_ITS | Encounter Summary ---
Author Organization [employer] Address [address] [place] [address] 7 [place] [address] Care Team Providers Care Carpet Or Rug Layer Helper Name Role Phone Stan Fletcher MD Primary Care Provider [phone] Reason for Visit * Reason Onset Date Comments Durable Medical Equipment 01/26/2023 Encounter Details Date Type Department Care Team ([facility] Contact Info) Description 01/26/2023 Telephone [facility] CHC MED & PEDS [address] [place], [place] [phone] Stan Fletcher MD [address] [place] [address] Durable Medical Equipment Social History Tobacco Use [...] CCA. For clarification, please contact pt at [phone] (Sign language) documented in this encounter Plan of Treatment Not on file documented as of this encounter Visit Diagnoses Diagnosis Type 2 diabetes mellitus without complication, with long-term current use of insulin ([facility])- Primary documented in this encounter Care Teams Carpet Or Rug Layer Helper Relationship Specialty Start Date End Date Stan Fletcher MD [address] [place] [address] PCP - General Internal Medicine 08/20/18 documented as of this encounter
--- OUTSIDE RECORDS SUMMARY | 2025-05-07 16:48 | XMS_ITS | Encounter Summary ---
Author Organization [employer] Address [address] [facility] 7 [place] [address] Care Team Providers Care Alligator Trapper Name Role Phone Stan Fletcher MD Primary Care Provider [phone] Encounter Details Date Type Department Care Team ([facility] Contact Info) Description 06/27/2023 Orders Only [facility] CHC MED & PEDS [address] [place], [place] [phone] Stan Fletcher MD [address] [place] [address] Acute pain of left shoulder (Primary Dx) [...] Primary documented in this encounter Care Teams Alligator Trapper Relationship Specialty Start Date End Date Stan Fletcher MD [address] [place] [address] PCP - General Internal Medicine 08/20/18 documented as of this encounter
--- OUTSIDE RECORDS SUMMARY | 2025-05-07 16:48 | XMS_ITS | Encounter Summary ---
Author Organization [employer] [facility] Address [address] [place] [address] Care Team Providers Care Stator Winder Name Role Phone Stan Fletcher MD Primary Care Provider [phone] Reason for Visit * Reason Comments Med Refill Encounter Details Date Type Department Care Team ([facility] Contact Info) Description 03/20/2023 Refill [facility] CHC MED & PEDS [address] [place] [address] Stan Fletcher MD [address] [place] [address] Type 2 diabetes mellitus with hyperglycemia, with long-term current use of insulin ([facility]) Social History Tobacco Use Types [...] (CMS/HCC) documented in this encounter Care Teams Stator Winder Relationship Specialty Start Date End Date Stan Fletcher MD [address] [place] [address] PCP - General Internal Medicine 08/20/18 documented as of this encounter
--- OUTSIDE RECORDS SUMMARY | 2025-05-07 16:49 | XMS_ITS | Encounter Summary ---
Author Organization [employer] Address [address] [facility] 7 [place] [address] Care Team Providers Care Career Developer Name Role Phone Stan Fletcher MD Primary Care Provider [phone] Reason for Visit * Reason Onset Date Comments Medication Question 04/29/2025 Encounter Details Date Type Department Care Team ([facility] Contact Info) Description 04/29/2025 Telephone [facility] CHC MED & PEDS [address] [place], [place] [phone] Stan Fletcher MD [address] [place] [address] Medication Question Social History Tobacco Use Types [...] very loose stool . Contact pt at [phone] (sign language) documented in this encounter Plan of Treatment Not on file documented as of this encounter Visit Diagnoses Not on filedocumented in this encounter Additional Health Concerns Assessment Noted Time PHQ-9 Depression Total Score: 0 11/06/19 25 9:29 AM EDT documented as of this encounter Care Teams Career Developer Relationship Specialty Start Date End Date Stan Fletcher MD [address] [place] [address] PCP - General Internal Medicine 08/20/18 documented as of this encounter
--- OUTSIDE RECORDS SUMMARY | 2025-05-07 16:49 | XMS_ITS | Encounter Summary ---
Author Organization [employer] Address [address] [facility] 7 [place] [address] Care Team Providers Care First Line Production Supervisor Name Role Phone Stan Fletcher MD Primary Care Provider [phone] Encounter Details Date Type Department Care Team ([facility] Contact Info) Description 08/03/2022 Telephone [facility] CHC MED & PEDS [address] [place], [place] [phone] Stan Fletcher MD [address] [place] [address] Social History Tobacco Use Types Packs/Day Years [...] on filedocumented in this encounter Care Teams First Line Production Supervisor Relationship Specialty Start Date End Date Stan Fletcher MD [address] [place] [address] PCP - General Internal Medicine 08/20/18 documented as of this encounter
--- OUTSIDE RECORDS SUMMARY | 2025-05-07 16:49 | XMS_ITS | Encounter Summary ---
Author Organization [employer] Address [address] [place] [address] 7 [place] [address] Care Team Providers Care Supervisor Lump Room Name Role Phone Stan Fletcher MD Primary Care Provider [phone]- [phone] Encounter Details Date Type Department Care Team ([facility] Contact Info) Description 07/16/2023 Orders Only [facility] CHC MED & PEDS [address] [place], [place] [phone] Stan Fletcher MD 505 [place] [address] Social History Tobacco Use Types Packs/Day Years [...] AM EST Narrative 08/07/2023 3:29 PM EST [address] [place] [address] Magnetic Resonance Report Signed Patient: Nick Escobar MR#: [id number] : 1960 Acct:[id number] Age/Sex: 62 / M ADM Date: 08/07/23 Loc: HO.MRI Attending Dr: Eddie Lawler MD Ordering Physician: Eddie Lawler MD Date of Service: 08/07/23 Procedure(s): MR shoulder LT wo con Accession Number(s): [id number] cc: Stan Fletcher MD; Eddie Lawler MD EXAMINATION: MR SHOULDER WITHOUT CONTRAST, LEFT CLINICAL INFORMATION: Posterior left shoulder and arm pain since 06/23/2023. Impingement syndrome. COMPARISON: Left shoulder radiographs dated 06/26/2023. TECHNIQUE: MRI of the shoulder was performed using routine sequences on a high-field scanner. FINDINGS: ROTATOR CUFF: Nseo-nc-aqrvewsg supraspinatus tendinosis with anterior bursal surface fraying [...] MR/MR shoulder LT wo con IMPRESSION: 1. Ensa-et-ltwiewau supraspinatus tendinosis with anterior bursal surface fraying [...] in OV> 08/07/23 1526 DD/ 0815 TD/TT: Surgery Teacher: Procedure Note Donotuseinterpreter, Image - 08/07/2023 [place] [address] Magnetic Resonance Report Signed Patient: Nick Escobar#: [id number] : 1960Acct:[id number] Age/Sex: 62 / MADM Date: 08/07/23 Loc: HO.MRI Attending Dr: Eddie Lawler MD Ordering Physician: Eddie Lawler MD Date of Service: 08/07/23 Procedure(s): MR shoulder LT wo con Accession Number(s): [id number] cc: Stan Fletcher MD; Eddie Lawler MD EXAMINATION: MR SHOULDER WITHOUT CONTRAST, LEFT CLINICAL INFORMATION: Posterior left shoulder and arm pain since 06/23/2023. Impingement syndrome. COMPARISON: Left shoulder radiographs dated 06/26/2023. TECHNIQUE: MRI of the shoulder was performed using routine sequences on a high-field scanner. FINDINGS: ROTATOR CUFF: Wouh-zo-bypaujgg supraspinatus tendinosis with anterior bursal surface fraying [...] MR/MR shoulder LT wo con IMPRESSION: 1. Bvrd-gk-oyhcomsl supraspinatus tendinosis with anterior bursal surface fraying [...] in OV> 08/07/23 1526 DD/ 0815 TD/TT: Surgery Teacher: SR [facility] External Provider IMG MRI PROCEDURES Final Result documented in this encounter Visit Diagnoses Not on filedocumented in this encounter Care Teams Supervisor Lump Room Relationship Specialty Start Date End Date Stan Fletcher MD [address] [place] [address] PCP - General Internal Medicine 08/20/18 documented as of this encounter
--- OUTSIDE RECORDS SUMMARY | 2025-05-07 16:49 | XMS_ITS | Encounter Summary ---
Author Organization [employer] Address [address] [place] [address] 7 [place] [address] Care Team Providers Care Facilities Supervisor Name Role Phone Stan Fletcher MD Primary Care Provider [phone]- [phone] Reason for Visit * Reason Comments Med Refill Encounter Details Date Type Department Care Team ([facility] Contact Info) Description 08/29/2022 Refill [facility] CHC MED & PEDS 505 [place] [address] Stan Fletcher MD 505 [place] [address] Chronic pain syndrome Social History Tobacco Use [...] syndrome documented in this encounter Care Teams Facilities Supervisor Relationship Specialty Start Date End Date Stan Fletcher MD 505 [place] [address] PCP - General Internal Medicine 08/20/18 documented as of this encounter
--- OUTSIDE RECORDS SUMMARY | 2025-05-07 16:49 | XMS_ITS | Encounter Summary ---
Author Organization [employer] Address 75 [facility] 7 [place] [address] Care Team Providers Care Resourcing Advisor Name Role Phone Stan Fletcher MD Primary Care Provider [phone] Encounter Details Date Type Department Care Team ([facility] Contact Info) Description 12/07/2022 Orders Only [facility] CHC MED & PEDS 505 [place], [place] [phone] Stan Fletcher MD 505 [place] [address] Palpitations (Primary Dx) Social History Tobacco Use [...] Primary documented in this encounter Care Teams Resourcing Advisor Relationship Specialty Start Date End Date Stan Fletcher MD 505 [place], [place] [phone] PCP - General Internal Medicine 08/20/18 documented as of this encounter
--- OUTSIDE RECORDS SUMMARY | 2025-05-07 16:49 | XMS_ITS | Encounter Summary ---
Author Organization [employer] Address [address] [facility] [address] 7t [place] [address] Care Team Providers Care Roller Setter Name Role Phone Stan Fletcher MD Primary Care Provider [phone] Encounter Details Date Type Department Care Team (Latest Contact Info) Description 05/07/2025 Travel Social History Tobacco Use Types Packs/Day [...] documented as of this encounter Care Teams Roller Setter Relationship Specialty Start Date End Date Stan Fletcher MD [address] [place] [address] PCP - General Internal Medicine 08/20/18 documented as of this encounter
--- OUTSIDE RECORDS SUMMARY | 2025-05-07 16:49 | XMS_ITS | Encounter Summary ---
Author Organization [employer] Address 75 [facility] 7 [place] [address] Care Team Providers Care Pulp Mill Supervisor Name Role Phone Stan Fletcher MD Primary Care Provider [phone] Reason for Visit * Reason Onset Date Comments Nurse Triage 02/13/2025 Encounter Details Date Type Department Care Team ([facility] st Contact Info) Description 02/13/2025 Telephone [facility] MEDICINE [address] [place] [address] Stan Fletcher MD 505 [place], [place] [phone] Nurse Triage Social History Tobacco Use Types [...] 10:22 AM EDT Called pt. Via 3594 lacquer sizer. Pt states that he was prescribed Aspirin 10mg every am a long time ago in [place] and he stopped taking it in December [...] acuity questions The caller accepted this outcome. [phone] (Sign Language) documented in this encounter Plan of Treatment Not on file documented as of this encounter Visit Diagnoses Not on filedocumented in this encounter Additional Health Concerns Assessment Noted Time PHQ-9 Depression Total Score: 0 11/06/19 25 9:29 AM EDT documented as of this encounter Care Teams Pulp Mill Supervisor Relationship Specialty Start Date End Date Stan Fletcher MD [address] [place] [address] PCP - General Internal Medicine 08/20/18 documented as of this encounter
--- OUTSIDE RECORDS SUMMARY | 2025-05-07 16:49 | XMS_ITS | Encounter Summary ---
Author Organization [employer] Address 75 [facility] 7 [place] [address] Care Team Providers Care Custom Designer Name Role Phone Stan Fletcher MD Primary Care Provider [phone] Reason for Visit * Reason Onset Date Comments Med Refill 11/05/2023 Encounter Details Date Type Department Care Team ([facility] st Contact Info) Description 11/05/[address] [facility] MEDICINE [address] [place] [address] Stan Fletcher MD 505 [place], [place] [phone] Med Refill Social History Tobacco Use Types [...] 1:59 PM EDT Tc from [facility] at [facility] requesting scripts for Continuous Blood Gluc Railroad Conductor (FreeStyle Cathryn 2 Laurel) device ,Continuous Blood Gluc Sensor (FreeStyle Cathryn 2 Sensor) misc and Precision Anjel Test Stripsit can be Faxed to [phone] documented in this encounter Plan of Treatment Not on file documented as of this encounter Visit Diagnoses Not on filedocumented in this encounter Care Teams Custom Designer Relationship Specialty Start Date End Date Stan Fletcher MD [address] [place] [address] PCP - General Internal Medicine 08/20/18 documented as of this encounter
--- OUTSIDE RECORDS SUMMARY | 2025-05-07 16:49 | XMS_ITS | Encounter Summary ---
Author Organization [employer] Address 75 [facility] 7t [place] [address] Care Team Providers Care Executive Relations Specialist Name Role Phone Stan Fletcher MD Primary Care Provider [phone] Encounter Details Date Type Department Care Team ([facility] Contact Info) Description 11/12/2024 Orders Only [facility] [address] [place] [address] ProviderMarcelle MD Social History Tobacco Use Types [...] documented as of this encounter Care Teams Executive Relations Specialist Relationship Specialty Start Date End Date Stan Fletcher MD [address] [place] [address] PCP - General Internal Medicine 08/20/18 documented as of this encounter
--- OUTSIDE RECORDS SUMMARY | 2025-05-07 16:49 | XMS_ITS | Encounter Summary ---
Author Organization [employer] Address 75 [facility] 7 [place] [address] Care Team Providers Care Area Field Worker Name Role Phone Stan Fletcher MD Primary Care Provider [phone] Encounter Details Date Type Department Care Team ([facility] Contact Info) Description 08/23/20[address] Orders [address] [facility] CHC MED & PEDS 505 [place], [place] [phone] Stan Fletcher MD 505 [place] [address] Social History Tobacco Use Types Packs/Day Years [...] on filedocumented in this encounter Care Teams Area Field Worker Relationship Specialty Start Date End Date Stan Fletcher MD 505 [place] [address] PCP - General Internal Medicine 08/20/18 documented as of this encounter
--- OUTSIDE RECORDS SUMMARY | 2025-05-07 16:49 | XMS_ITS | Encounter Summary ---
Author Organization [employer] Address 75 [facility] 7 [place] [address] Care Team Providers Care Burr Bench Hand Name Role Phone Stan Fletcher MD Primary Care Provider [phone] Reason for Visit * Reason Onset Date Comments Medication Question 03/16/2025 Encounter Details Date Type Department Care Team ([facility] Contact Info) Description 03/16/2025 Telephone [facility] CHC MED & PEDS 505 [place], [place] [phone] Stan Fletcher MD 505 [place] [address] Medication Question Social History Tobacco Use Types [...] Pt stated it issmaller. Contact pt at [phone] (ASL) documented in this encounter Plan of Treatment Not on file documented as of this encounter Visit Diagnoses Not on filedocumented in this encounter Additional Health Concerns Assessment Noted Time PHQ-9 Depression Total Score: 0 11/06/19 25 9:29 AM EDT documented as of this encounter Care Teams Burr Bench Hand Relationship Specialty Start Date End Date Stan Fletcher MD [address] [place] [address] PCP - General Internal Medicine 08/20/18 documented as of this encounter
--- OUTSIDE RECORDS SUMMARY | 2025-05-07 16:49 | XMS_ITS | Encounter Summary ---
Author Organization [employer] Address [address] [place] [address] Care Team Providers Care Bean Sprout Grower Name Role Phone Stan Fletcher MD Primary Care Provider [phone] Reason for Referral * Consultation (Routine) - Closed Specialty Diagnoses / Procedures Referred By Contac t Referred To Contact Gastroenterology Diagnoses Positive colorectal cancer screening using Cologuard test Stan Fletcher MD [address] [place] [address] Phone: tel: fax: Neli Jaeger MD [address] [place] [address] Phone: tel: fax: Referral ID Status Reason Start Date Expiration Date V isits Requested Visits Authorized [id number] Closed Specialty Services Required 12/14/2023 12/13/2024 1 1 Encounter Details Date Type Department Care Team ([facility] Contact Info) Description 12/14/2023 Orders Only [facility] CHC MED & PEDS 505 [place], [place] [phone] Stan Fletcher MD 505 [place], [place] [phone] Positive colorectal cancer screening using Cologuard test [...] documented as of this encounter Care Teams Bean Sprout Grower Relationship Specialty Start Date End Date Stan Fletcher MD 505 [place] [address] PCP - General Internal Medicine 08/20/18 documented as of this encounter
--- OUTSIDE RECORDS SUMMARY | 2025-05-07 16:49 | XMS_ITS | Encounter Summary ---
Author Organization [employer] Address [address] [place] [address] [address] [address] Care Team Providers Care Solution Lead Name Role Phone Stan Fletcher MD Primary Care Provider [phone] Reason for Referral * Consultation (Routine) - Closed Specialty Diagnoses / Procedures Referred By Contac t Referred To Contact Endocrinology Diagnoses Diabetes mellitus due to underlying condition with hyperglycemia, with long-term current use of insulin (CMS/HCC) Stan Fletcher MD [address] [place] [address] Phone: tel: fax: [facility] Endocrinology [address] [place] [address] Phone: tel: fax: Referral ID Status Reason Start Date Expiration Date V isits Requested Visits Authorized [id number] Closed Specialty Services Required 12/18/2024 12/18/2025 1 1 Encounter Details Date Type Department Care Team (Late st Contact Info) Description 12/10/2024 Orders Only [facility] CHC MED & PEDS [address] [place] [address] Stan Fletcher MD [address] [place] [address] Type 2 diabetes mellitus without complication, with long-term current use of insulin (CMS/HCC) (Primary Dx); Primary hypertension; Diabetes mellitus due to underlying condition with hyperglycemia, with long-term current use of insulin (CMS/[facility]) Social History Tobacco Use Types Packs/Day Years [...] hyperglycemia, with long-term current use of insulin ([facility]) Expected: 12/18/2024 (Approximate), Expires: 12/18/2025 documented as of this encounter Procedures Procedure Name Priority Date/Time Associated Diagnosis Comments BASIC METABOLIC PANEL Routine 02/10/2025 10:40 AM EDT Primary hypertension documented in this encounter Results * (ABNORMAL) Basic Metabolic Panel (02/10/2025 10:40 AM EDT) Sodium 140 135 - 145 mmol/L [facility] Potassium 4.9 3.3 - 5.1 mmol/L [facility] Chloride 109(H) 96 - 108 mmol/L [facility] Carbon Dioxide 24 22 - 29 mmol/L [facility] Anion Gap 12 12 - 20 [facility] Urea Nitrogen (BUN) 47(H) 9 - 16 mg/dL [facility] Creatinine, Serum 1.46(H) 0.5 - 1.4 mg/dL [facility] Estimated Glomerular Filt Rate 49 [facility] Comment:Chronic Kidney Disea se: Estimated GFR < 60 mL/min/1.78l1Dysdnf Kidney Disease: Estimated GFR < 15 mL/min/1.73m2 Glucose 87 60 - 115 mg/dL [facility] Calcium 9.5 8.4 - 10.2 mg/dL [facility] Blood Venous blood specimen / Unknown 02/10/2025 10:40 AM EDT 02/10/2025 1:58 PM EDT us Stan Fletcher MD LAB BLOOD ORDERABLES Final Result [facility] [address] [place] [address] [phone] documented in this encounter Visit Diagnoses Diagnosis Type 2 diabetes mellitus without complication, with long-term current use of insulin ([facility])- Primary Primary hypertension Unspecified essential hypertension Diabetes mellitus due to underlying condition with hyperglycemia, with long-term current use of insulin ([facility]) documented in this encounter Additional Health Concerns Assessment Noted Time PHQ-9 Depression Total Score: 0 11/06/19 25 9:29 AM EDT documented as of this encounter Care Teams Solution Lead Relationship Specialty Start Date End Date Stan Fletcher MD [address] [place] [address] PCP - General Internal Medicine 08/20/18 documented as of this encounter
--- OUTSIDE RECORDS SUMMARY | 2025-05-07 16:49 | XMS_ITS | Encounter Summary ---
Author Organization [employer] Address [address] [place] [address] 7 [place] [address] Care Team Providers Care Solar Panel Installer Name Role Phone Stan Fletcher MD Primary Care Provider [phone]- [phone] Reason for Visit * Reason Comments Med Refill Encounter Details Date Type Department Care Team ([facility] Contact Info) Description 01/09/2023 Refill [facility] CHC MED & PEDS [address] [place] [address] Stan Fletcher MD [address] [place] [address] Social History Tobacco Use Types Packs/Day Years [...] on filedocumented in this encounter Care Teams Solar Panel Installer Relationship Specialty Start Date End Date Stan Fletcher MD [address] [place] [address] PCP - General Internal Medicine 08/20/18 documented as of this encounter
--- OUTSIDE RECORDS SUMMARY | 2025-05-07 16:49 | XMS_ITS | Encounter Summary ---
Author Organization [employer] Address [address] [place] [address] 7 [place] [address] Care Team Providers Care Pigment Weigher Name Role Phone Stan Fletcher MD Primary Care Provider [phone] Reason for Visit * Reason Onset Date Comments Nurse Triage 08/23/2023 Encounter Details Date Type Department Care Team ([facility] st Contact Info) Description 08/23/2023 Telephone [facility] CHC MED & PEDS 505 [place], [place] [phone] Stan Fletcher MD 505 [place], [place] [phone] Nurse Triage Social History Tobacco Use Types [...] 3:50 PM EST Called pt. Back via seismic interpreter #[id number]. Called pt. Asked him if he has any Covid tests at home to test himself for Covid. Pt. States he has a test at home but, he currently at Pharmacy picking up some OTC cough medicine. I will call pt. Back at 430pm to see what Covid test result is as pt. States he lives [place] from [facility]. Called pt. Back via seismic interpreter #[id number]. Pt. Took Covid test and it came out Negative. Pt. ShowedASL aerial photograph interpreter over video and she states that only the control line is showing and only 1 line on home Covid test. Advised pt. That per Dr. Fletcher he would like pt. To go to Walk in at [facility] tomorrow 08/23/2023 in the am to get his lungs listened to and to assess left lung congestion. Pt. States understanding and will go to walk in at [facility] at 830am when walk in opens. * Telephone Encounter - Vivi Salazar RN - 08/23/2023 2:53 PM EST Called pt. Back via seismic interpreter. Hospitalist Program Director #[id number]. Pt. States that he has a productive [...] accepted this outcome Please contact pt @ [phone] Sign Language documented in this encounter Plan of Treatment Not on file documented as of this encounter Visit Diagnoses Not on filedocumented in this encounter Care Teams Pigment Weigher Relationship Specialty Start Date End Date Stan Fletcher MD [address] [place] [address] PCP - General Internal Medicine 08/20/18 documented as of this encounter
--- OUTSIDE RECORDS SUMMARY | 2025-05-07 16:49 | XMS_ITS | Encounter Summary ---
Author Organization [employer] Address [address] [place] [address] 7 [place] [address] Care Team Providers Care Interactive Art Director Name Role Phone Stan Fletcher MD Primary Care Provider [phone] Reason for Visit * Reason Onset Date Comments Nurse Triage 05/07/2025 Encounter Details Date Type Department Care Team ([facility] Contact Info) Description 05/07/2025 Telephone [facility] CHC MED & PEDS 505 [place], [place] [phone] Stan Fletcher MD 505 [place] [address] Nurse Triage Social History Tobacco Use Types [...] Telephone Encounter - Vivi Salazar RN - 05/07/2025 9:52 AM EDT Called pt. Via paving foreman. Pt. States that he has been having a lot of diarrhea lately. Pt. States that 3 months ago his bowels have been fine but over the past few weeks he has been having veryloose stools twice daily. No blood in stool. No abdominal pain. Pt. Concerned because he states It's not normal . Pt. States it has been happening x 2 months. Pt. States that also last week he got an injection and developed a rash from it where the bandaid was put on pt. Skin. Pt. States he has had reactions in the past from bandaids but it has gone away quickly by applying cream but this time rash is lingering. Pt. Feels that ever since he had a Colonoscopy, he has been having diarrhea and hehas not changed anything in diet. Pt. Wants to be seen. Appt. Made for today with PCP for 245pm in [facility]. Protocol Used: Diarrhea (Adult) Protocol-Based Disposition: See in Office today at 245pm. [facility] Video visit offer not recorded Positive Triage Questions: * Mild diarrhea (e.g., 1-3 or more stools than normal in past 24 hours) diarrhea and present > 7days (Exception: Chronic diarrhea that is not worse.) * Patient wants to be seen * All higher-acuity triage questions were negative Care Advice Discussed: * Reassurance and Education - Diarrhea * Fluid Therapy During Mild to Moderate Diarrhea * Food and Nutrition During Mild to Moderate Diarrhea * Wash Your Hands * Telephone Encounter - Fish French - 05/07/2025 8:59 AM EDT Symptom: Diarrhea Outcome: Schedule an appointment to be seen within 24 hours Reason: Caller denied all higher acuity questions The caller accepted this outcome. Contact pt at [phone] (mongolian) documented in this encounter Plan of Treatment Not on file documented as of this encounter Visit Diagnoses Not on filedocumented in this encounter Additional Health Concerns Assessment Noted Time PHQ-9 Depression Total Score: 0 11/06/19 25 9:29 AM EDT documented as of this encounter Care Teams Interactive Art Director Relationship Specialty Start Date End Date Stan Fletcher MD [address] [place] [address] PCP - General Internal Medicine 08/20/18 documented as of this encounter
--- OUTSIDE RECORDS SUMMARY | 2025-05-07 16:49 | XMS_ITS | Encounter Summary ---
Author Organization [employer] Address [address] [place] [address] Care Team Providers Care Die Press Operator Name Role Phone Stan Fletcher MD Primary Care Provider [phone] Reason for Referral * Consultation (Routine) - Canceled Specialty Diagnoses / Procedures Referred By Contivan t Referred To Contact Endocrinology Diagnoses Type 2 diabetes mellitus without complication, with long-term current use of insulin (CMS/HCC) Stan Fletcher MD [address] [place] [address] Phone: tel: fax: Referral ID Status Reason Start Date Expiration Date Visits Requested Visits Authorized [id number] Canceled Specialty Services Required 02/13/2025 02/13/2026 1 1 Encounter Details Date Type Department Care Team ([facility] Contact Info) Description 02/13/2025 Orders Only [facility] CHC MED & PEDS [address] [place] [address] Stan Fletcher MD [address] [place] [address] Type 2 diabetes mellitus without complication, with [...] documented as of this encounter Care Teams Die Press Operator Relationship Specialty Start Date End Date Stan Fletcher MD [address] [place] [address] PCP - General Internal Medicine 08/20/18 documented as of this encounter
--- OUTSIDE RECORDS SUMMARY | 2025-05-07 16:49 | XMS_ITS | Encounter Summary ---
Author Organization [employer] Address [address] [place] [phone] Care Team Providers Care Auditor/Quality Name Role Phone Satn Fletcher MD Primary Care Provider [phone] Reason for Referral * Imaging (Routine) - Authorized Specialty Diagnoses / Procedures Referred By Contac t Referred To Contact Radiology Diagnoses Transaminitis Procedures US Abdomen Comp w elastography Stan Fletcher MD [address] [place] [address] Phone: tel: fax: [address] Phone: tel: fax: Referral ID Status Reason Start Date Expiration Date V isits Requested Visits Authorized [id number] Authorized 05/06/2025 05/06/2026 1 1 Encounter Details Date Type Department Care Team ([facility] st Contact Info) Description 05/05/2025 Orders Only [facility] PEDS [address] [place], [place] [phone] Stan Fletcher MD [address] [place], [place] [phone] Transaminitis (Primary Dx); Decreased GFR Social History Tobacco Use Types Packs/Day Years [...] of this encounter Plan of Treatment Scheduled Orders Name Type Priority Associated Diagnoses Orde r Schedule Hepatitis B Surface Antibody, Qualitative Lab Routine Transaminitis Expected: 05/06/2025 (Approximate), Expires: 05/06/2026 US Abdomen Comp w elastography Imaging Routine Transaminitis Expected: 05/06/2025, Expires: 05/06/2026 Smooth Muscle Antibody with Reflex to Titer Lab Routine Transaminitis Expected: 05/06/2025 (Approximate), Expires: 05/06/2026 Immunoglobulins, Quantitative, IgA, IgG, IgM Lab Routine Transaminitis Expected: 05/06/2025 (Approximate), Expires: 05/06/2026 Prothrombin Time-INR Lab Routine Transaminitis Expected: 05/06/2025, Expires: 05/06/2026 Ferritin Lab Routine Transaminitis Expected: 05/06/2025, Expires: 05/06/2026 Iron And Total Iron Binding Capacity Lab Routine Transaminitis Expected: 05/06/2025, Expires: 05/06/2026 Alpha 1 Antitrypsin Lab Routine Transaminitis Expected: 05/06/2025 (Approximate), Expires: 05/06/2026 documented as of this encounter Visit Diagnoses Diagnosis Transaminitis- Primary Nonspecific elevation of levels of transaminase or lactic acid dehydrogenase (LDH) Decreased GFR documented in this encounter Additional Health Concerns Assessment Noted Time PHQ-9 Depression Total Score: 0 11/06/19 25 9:29 AM EDT documented as of this encounter Care Teams Auditor/Quality Relationship Specialty Start Date End Date Stan Fletcher MD [address] [place] [phone] PCP - General Internal Medicine 08/20/18 documented as of this encounter
--- OUTSIDE RECORDS SUMMARY | 2025-05-07 16:49 | XMS_ITS | Encounter Summary ---
Author Organization [employer] Address [address] [facility] 7 [place] [address] Care Team Providers Care Grain Shipper Name Role Phone Stan Fletcher MD Primary Care Provider [phone] Reason for Visit * Reason Onset Date Comments Call Back Request 05/06/2025 fyi 05/06/2025 Encounter Details Date Type Department Care Team ([facility] Contact Info) Description 05/06/2025 Telephone [facility] MED & PEDS [address] [place] [address] Stan Fletcher MD [address] [place] [address] Call Back Request; fyi Social History Tobacco Use Types Packs/Day Years [...] Telephone Encounter - Gloria Winkler RN - 05/07/2025 10:31 AM EDT Patient has an appointment scheduled for 05/07/25 * Telephone Encounter - Fish French - 05/06/2025 8:54 AM EDT Tc from pt stating that diaherria has stopped since he stopped taking SITagliptin (Januvia) 100 MG tablet . Pt requesting for a call back to discuss alternative. Pt has an apt with Loretta tejada soon to check kidneys Contact pt at [phone] (sign language) documented in this encounter Plan of Treatment Not on file documented as of this encounter Visit Diagnoses Not on filedocumented in this encounter Additional Health Concerns Assessment Noted Time PHQ-9 Depression Total Score: 0 11/06/19 9:29 AM EDT documented as of this encounter Care Teams Grain Shipper Relationship Specialty Start Date End Date Stan Fletcher MD [address] [place] [phone] PCP - General Internal Medicine 08/20/18 documented as of this encounter
--- OUTSIDE RECORDS SUMMARY | 2025-05-07 16:49 | XMS_ITS | Clinical Summary ---
Author Organization [employer] Address [address] [place] [address] 7 [place] [address] Care Team Providers Care Marketing Secretary Name Role Phone Stan Fletcher MD Primary Care Provider [phone] Allergies Active Allergy Reactions Criticality Noted Date [...] mL 11 2022 Active Continuous Blood Gluc Special Class Welder (FreeStyle Cathryn 2 [place]) deviceIndications:Type 2 diabetes mellitus without complication, with long-term current use of insulin ([facility]) To use daily 1 each 2022 Active Continuous Blood Gluc Sensor (FreeStyle Cathryn 2 Sensor) miscIndications:Type 2 diabetes mellitus without complication, with long-term current use of insulin ([facility]) To use daily 2 each [...] hyperglycemia, with long-term current use of insulin ([facility]) INJECT 12 UNITS SUBCUTANEOUSLY THREE [...] complication, with long-term current use of insulin ([facility]) Inject 12 Units as directed 3 times daily. 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 Do not crush or chew. 60 capsule 11 2023 Active Continuous Glucose Special Class Welder (FreeStyle Cathryn 2 [place]) deviceIndications:Type 2 diabetes mellitus without complication, with long-term current use of insulin ([facility]) Scan sensor every 8 hours 1 each 2023 Active Continuous Glucose Sensor (FreeStyle Cathryn 2 Sensor) miscIndications:Type 2 diabetes mellitus without complication, with long-term current use of insulin ([facility]) Apply 1 sensor every 14 days 2 each 2023 Active atorvastatin (Lipitor) 40 MG tabletIndications:Pure hypercholesterolemia TAKE ONE TABLET EVERY MORNING 30 tablet 11 2023 Active Lantus SoloStar 100 UNIT/ML pen INJECT 60 UNITS SUBCUTANEOUSLY ONCE DAILY 30 mL 2023 Active TechLite Pen [place] 32G X 6 MM misc USE FOUR [...] complication, with long-term current use of insulin ([facility]) Take 1 tablet (100 mg) [...] complication, with long-term current use of insulin ([facility]) To use 2 times a day 100 strip 2024 Active hydrocortisone 0.5 % cream Apply topically 2 times daily. 15 g 2024 Active melatonin 5 MG tabletIndications:Prim janeth insomnia Take 1 tablet (5 mg) by mouth Once per day. 30 tablet 2 2024 Active OneTouch Ultra test strip TEST [...] Encounters Date Type Department Care Team Description 05/07/2025 2:45 PM EDT Office Visit [facility] MED & PEDS [address] [place] [address] Stan Fletcher MD Diarrhea, unspecified type (Primary Dx); Primary hypertension; Type 2 diabetes mellitus without complication, with long-term current use of insulin ([facility]/HCC); Transaminitis; Irritant contact dermatitis due to other agents; Primary insomnia 05/07/2025 Results Follow-Up [facility] MED & PEDS [address] [place] [address] Cheryl Melendez RN Glucose, Whole Blood, Basic Metabolic Panel, AST, ALT 05/07/2025 Travel 05/07/2025 Telephone [facility] MED & PEDS [address] [place] [address] Stan Mojica MD Nurse Triage 05/06/2025 Telephone [facility] PEDS [address] [place] [address] Stan Mojica MD Call Back Request; fyi 05/05/2025 Orders Only [facility] [address] [place] [address] Stan Mojica MD Transaminitis (Primary Dx); Decreased GFR 05/05/2025 Orders Only GENERIC EXTERNAL DATA DEPARTMENT Provider, Generic External Data 04/29/2025 Telephone [facility] MED [facility] PEDS [address] [place] [address] Stan Fletcher MD Medication Question 04/22/2025 2:15 PM EDT Office Visit [facility] [address] [place] [address] Stan Mojica MD Type 2 diabetes mellitus without complication, with long-term current use of insulin ([facility]/HCC) (Primary Dx); Primary hypertension; Right hip pain 04/22/2025 Travel 04/21/2025 Telephone [facility] [address] [place] [address] Stan Fletcher MD Chart Prep 04/21/[address] [address] Stan Fletcher MD Nurse Triage 03/30/2025 Telephone [facility] [address] [place] [address] Stan Fletcher MD Med Refill 03/19/[address] [address] Stan Fletcher MD Appointment Request 03/16/2025 Telephone [facility] [address] [place] [address] Stan Fletcher MD Medication Question 03/04/2025 Telephone [facility] [address] [place] [address] Stan Fletcher MD Medication Question 03/03/[address] [address] Stan Fletcher MD Nurse Triage 03/02/2025 Refill [facility] [address] [place] [address] Stan Fletcher MD Right sided sciatica 02/25/2025 Telephone [facility] P[facility] [address] [place] [address] Stan Fletcher MD Referral 02/24/[address] [address] Stan Fletcher MD Appointment Request 02/23/2025 Telephone [facility] [address] [place] [address] Stan Fletcher MD Medication Question 02/23/2025 Refill [facility] [address] [place] [address] Stan Fletcher MD Right sided sciatica 02/13/2025 Orders Only [facility] [address] [place] [address] Stan Fletcher MD Type 2 diabetes mellitus without complication, with long-term current use of insulin (CMS/HCC) (Primary Dx) 02/13/2025 Telephone [facility] [address] [place] [address] Stan Fletcher MD Nurse Triage 02/12/2025 Telephone [facility] [address] [place] [address] Stan Fletcher MD Medication Question 02/12/2025 Refill [facility] [address] [place] [address] Stan Fletcher MD 02/11/2025 Results Follow-Up [facility] PED[facility] [address] [place] [address] Stan Fletcher MD POCT Glucose, Hepatitis C Antibody with Reflex to HCV, RNA, Quantitative, Real-Time PCR 02/11/2025 Results Follow-Up [facility] PED[facility] [address] [place] [address] Rupa Rain RN Basic Metabolic Panel 02/10/2025 10:00 AM EDT Office Visit [facility] [address] [place] [address] Stan Fletcher MD Primary hypertension (Primary Dx); Type 2 diabetes mellitus without complication, with long-term current use of insulin (CMS/HCC); Herniation of intervertebral disc between L4 and L5 02/10/2025 Travel from Last 3 Months Immunizations Immunization Administration [...] Pulse 59 05/07/2025 2:51 PM EDT Temperature 36.8 C (98.2 F) 02/10/2025 10:05 AM EDT Respiratory Rate 20 05/07/2025 2:51 PM EDT Oxygen Saturation 97% 05/07/2025 2:51 PM EDT Inhaled Oxygen Concentration - - Weight 89.8 kg (198 lb) 05/07/2025 2:51 PM EDT Height 173 cm (5' 8.11 ) 05/07/2025 2:51 PM EDT Body Mass Index 30.01 05/07/2025 2:51 PM EDT Plan of Treatment Health Maintenance Due Date Last Done Comments CT Colonography 1962 Colonoscopy 1962 FIT 1962 Sigmoidoscopy 1962 Disability Screening 1962 FOBT 12/05/2024 12/06/2023 DTaP/Tdap/Td Vaccines (2 - Td or Tdap) 10/19/2025 10/20/2015 Diabetes: Hemoglobin A1C 10/20/2025 025, 12/22/2024, 09/11/2024, Additional history exists Alcohol/Substance Use Screening 11/05/2025 11/05/2024 Depression Screening 11/05/2025 11/05/2024, 11/06/19 Diabetes: Urine Protein Screening 11/05/2025 11/05/2024 SDOH Screening 11/05/2025 11/05/2024 Eye Exam 11/11/2025 11/11/2024, 10/20/2022 Lipid Panel 11/12/2025 11/12/2024 Diabetes: Foot Exam 02/10/2026 02/10/2025, Tobacco Screening 05/07/2026 05/07/2025 Colorectal Cancer Screening 12/05/2026 FIT DNA/Cologuard 12/05/2026 12/06/2023 Zoster Vaccines Completed 01/24/2022, 11/23/2021 Pneumococcal Vaccine: 50+ Years Completed 07/26/2023, 06/03/2019 RSV Patients and Patients Aged 60 years or older Completed 04/25/2024 Hepatitis C Screening Completed 02/10/2025 Influenza Vaccine Completed 04/05/2025, , 07/19/2023, Additional history exists COVID-19 Vaccine Completed 05/02/2025, 11/2023, 06/10/2022, Additional history exists HIB Vaccines Aged Out [...] complication, with long-term current use of insulin ([facility]) POCT GLUCOSE Routine 04/22/2025 4:07 PM EDT Type 2 diabetes mellitus without complication, with long-term current use of insulin ([facility]) POCT GLUCOSE Routine 02/10/2025 12:22 PM EDT [...] Alanine Aminotransferase 72(H) 0 - 40 U/L [facility] 05/05/2025 11:4 0 AM EDT 05/05/2025 11:40 AM EDT us Generic External Data Provider LAB BLOOD ORDERAB LES Final Result [facility] [address] [place] [phone] * (ABNORMAL) AST (05/05/2025 11:40 AM EDT) Aspartate Amino Transferase 49(H) 5 - 37 U/L [facility] 05/05/2025 11:4 0 AM EDT 05/05/2025 11:40 AM EDT us Generic External Data Provider LAB BLOOD ORDERAB LES Final Result Performing Organization Address City/[facility]/ZIP Co de Phone Number [facility] [address] [place] [address] [phone] * (ABNORMAL) Basic Metabolic Panel (05/05/2025 11:40 AM EDT) Only the most recent of2 resultswithin the time period is included. Sodium 142 135 - 145 mmol/L [facility] Potassium 4.4 3.3 - 5.1 mmol/L [facility] Chloride 108 96 - 108 mmol/L [facility] Carbon Dioxide 27 22 - 29 mmol/L [facility] Anion Gap 11(L) 12 - 20 [facility] Urea Nitrogen (BUN) 32(H) 9 - 16 mg/dL [facility] Creatinine, Serum 1.41(H) 0.5 - 1.4 mg/dL [facility] Estimated Glomerular Filt Rate 51 [facility] Comment:Chronic Kidney Disea se: Estimated GFR < 60 mL/min/[id number] Kidney Disease: Estimated GFR < 15 mL/min/1.73m2 Glucose 100 60 - 115 mg/dL [facility] Calcium 9.4 8.4 - 10.2 mg/dL [facility] 05/05/2025 11:4 0 AM EDT 05/05/2025 11:40 AM EDT us Generic External Data Provider LAB BLOOD ORDERAB LES Final Result [facility] [address] [place] [address] [phone] * Glucose, Whole Blood (05/05/2025 10:14 AM EDT) Glucose, Whole Blood 78 60 - 115 mg/dL [facility] Comment:METER #: [id number] Testing performed in the Endocrinology Department [address] , [address], [facility]. 05/05/2025 10:1 4 AM EDT 05/05/2025 10:17 AM EDT Generic External Data Provider LAB BLOOD ORDERAB LES Final Result [facility] [address] [place] [address] [phone] * (ABNORMAL) POCT HGB A1C (04/22/2025 4:07 PM EDT) Pathologist [facility] Hemoglobin A1C 6.7(A) 4.0 - 5.7 % QC Media Lot # [id number] Lot# Expiration Date Blood 04/22/2025 4:07 PM EDT Stan Fletcher MD POINT OF CARE TEST ENTER/ED IT ORDERABLES Final Result * (ABNORMAL) POCT Glucose (04/22/2025 4:07 PM EDT) Only the most recent of2 resultswithin the time period is included. Pathologist [facility] Glucose Blood, POC 248(A) 60 - 200 mg/dL QC Media Lot # [id number] Lot# Expiration Date Comment:random Blood Capillary blood specimen / Unknown 04/22/2025 4:07 PM EDT Stan Fletcher MD POINT OF CARE TEST ENTER/ED IT ORDERABLES Final Result * Hepatitis C Antibody with Reflex to HCV, RNA, Quantitative, Real-Time PCR (02/10/2025 10:40 AM EDT) Pathologist [facility] Hepatitis C Antibody Nonreactive Nonreactive [facility] Comment:Antibodies to HCV no t detected; does not exclude early acuteHCV infection. Blood Venous blood specimen / Unknown 02/10/2025 10:40 AM EDT 02/10/2025 1:58 PM EDT us Stan Fletcher MD LAB BLOOD ORDERABLES Final Result Performing Organization Address City/[facility]/ZIP Co de Phone Number [facility] [address] [place] [address] [phone] * (ABNORMAL) Lipid Panel, Standard (11/12/2024 11:34 AM EDT) Triglycerides 176(H) <150 mg/dL [facility] Comment:Desirable Triglyceri de: less than 150 mg/dLBorderline High Triglyceride 150-199 mg/dLHigh Triglyceride: 200-499 mg/dLVery High Triglyceride: greater than or equal to 5OO mg/dL Cholesterol 116 <200 mg/dL [facility] Comment:Desirable Cholestero l: less than 200 mg/dLBorderline High Cholesterol: 200-239 mg/dLHigh Cholesterol: greater than 239 mg/dL LDL Cholesterol Calculated 49 <100 mg/dL [facility] Comment:Desirable LDL: less than 100 mg/dLNear Optimal/Above Optimal LDL: 110- 129 mg/dLBorderline High LDL: 130-159 mg/dLHigh LDL: 160-189 mg/dLVery High LDL: greater than or equal to 190 mg/dL HDL Cholesterol 32(L) >40 mg/dL [facility] Comment:Desirable HDL: great er than 40 mg/dL Note: This HDL assay may give artificially low results in patients with liver disease. Blood Venous blood specimen / Unknown 11/12/2024 11:34 AM EDT 11/12/2024 2:15 PM EDT us Stan Fletcher MD LAB BLOOD ORDERABLES Final Result Performing Organization Address City/[facility]/ZIP Co de Phone Number [facility] [address] [place] [address] [phone] * Hm Diabetes Eye Exam (11/11/2024 4:01 PM EDT) us Historical Provider HEALTH MAINTENANCE Final Result * Albumin, Random Urine W/Creatinine (11/05/2024 10:17 AM EDT) Creatinine, Urine 98.24 mg/dL [facility] Microalbumin Urine 20.0 mg/L [facility] Microalbum Creatinine Ratio Ur 20.3 <30 ug/mg cr [facility] Comment:Albumin/Creatinine R atio Reference Ranges: Normal: < 30 ug/mg creatinine Microalbuminuria: 30 - 300 ug/mg creatinineClinical Albuminuria: > 300 ug/mg creatinine Urine (Urine, Random) 11/05/2024 10:17 AM EDT 11/05/2024 2:07 PM EDT us Stan Fletcher MD LAB URINE ORDERABLES Final Result [facility] [address] [place] [phone] * (ABNORMAL) Cologuard?? colon cancer screening (12/06/2023 7:58 AM EDT) Cologuard Result Positive( A) Negative 12/13/2023 5:48 PM EDT [employer] [facility] (CLIA #:[id number]) Comment: POSITIVE TEST RESULT. A positive Cologuard [...] (Saritha Otto al, N Engl J Med 2014;370(14):8549-6370.) Cologuard may produce a false negative or false positive result (no colorectal cancer or precancerous polyp present at colonoscopy follow up). A negative Cologuard test result does not guarantee the absence of CRC or advanced adenoma (pre-cancer). The current Cologuard screening interval is every 3 years. ([place] [employer] Society and U.S. Multi-Society Task Force). Cologuard performance data in a 10,000 patient pivotal study using colonoscopy as the reference method can be accessed at the following location: [email or web address]/results. Additional description of the Cologuard test process, warnings and precautions can be found at www.cologuard.com. Stool specimen (specimen) Rectal contents / Unknown 12/06/2023 7:58 AM EDT 12/07/2023 10:55 AM EDT Stan Fletcher MD LAB MOLECULAR DIAGNOSTICS O RDERABLES Final Result [employer] (CLIA #:[id number]) [address] [place] [address], from Last 3 Months or Most Recently Relevant to Health Maintenance Insurance [facility] DUAL COMPLETE HMO [facility] [address] [place] [id number] [place] Care Teams Marketing Secretary Relationship Specialty Start Date End Date Stan Fletcher MD [address] [place] [phone] PCP - General Internal Medicine 08/20/18
--- OUTSIDE RECORDS SUMMARY | 2025-05-07 16:49 | XMS_ITS | Encounter Summary ---
Author Organization [employer] Address [address] [facility] 7t [place] [address] Care Team Providers Care Planer Setup Operator Name Role Phone Stan Fletcher MD Primary Care Provider [phone] Encounter Details Date Type Department Care Team ([facility] Contact Info) Description 05/05/2025 Orders Only GENERIC [...] Alanine Aminotransferase 72(H) 0 - 40 U/L [facility] 05/05/2025 11:4 0 AM EDT 05/05/2025 11:40 AM EDT us Generic External Data Provider LAB BLOOD ORDERAB LES Final Result Performing Organization Address [facility] Co de Phone Number [facility] [address] [place] [phone] * (ABNORMAL) AST (05/05/2025 11:40 AM EDT) Aspartate Amino Transferase 49(H) 5 - 37 U/L [facility] 05/05/2025 11:4 0 AM EDT 05/05/2025 11:40 AM EDT us Generic External Data Provider LAB BLOOD ORDERAB LES Final Result Performing Organization Address City/[facility] Co de Phone Number [facility] [address] [place] [address] [phone] * (ABNORMAL) Basic Metabolic Panel (05/05/2025 11:40 AM EDT) Sodium 142 135 - 145 mmol/L [facility] Potassium 4.4 3.3 - 5.1 mmol/L [facility] Chloride 108 96 - 108 mmol/L [facility] Carbon Dioxide 27 22 - 29 mmol/L [facility] Anion Gap 11(L) 12 - 20 [facility] Urea Nitrogen (BUN) 32(H) 9 - 16 mg/dL [facility] Creatinine, Serum 1.41(H) 0.5 - 1.4 mg/dL [facility] Estimated Glomerular Filt Rate 51 [facility] Comment:Chronic Kidney Disea se: Estimated GFR < 60 mL/min/[id number] Kidney Disease: Estimated GFR < 15 mL/min/1.73m2 Glucose 100 60 - 115 mg/dL [facility] Calcium 9.4 8.4 - 10.2 mg/dL [facility] 05/05/2025 11:4 0 AM EDT 05/05/2025 11:40 AM EDT us Generic External Data Provider LAB BLOOD ORDERAB LES Final Result Performing Organization Address [facility] Co de Phone Number [facility] [address] [place] [address] [phone] * Glucose, Whole Blood (05/05/2025 10:14 AM EDT) Glucose, Whole Blood 78 60 - 115 mg/dL [facility] Comment:METER #: [id number] Testing performed in the Endocrinology Department [address] , [address], [facility]. 05/05/2025 10:1 4 AM EDT 05/05/2025 10:17 AM EDT us Generic External Data Provider LAB BLOOD ORDERAB LES Final Result [facility] [address] [place] [phone] [phone] documented in this encounter Visit Diagnoses Not on filedocumented in this encounter Additional Health Concerns Assessment Noted Time PHQ-9 Depression Total Score: 0 11/06/19 25 9:29 AM EDT documented as of this encounter Care Teams Planer Setup Operator Relationship Specialty Start Date End Date Stan Fletcher MD [address] [place] [phone] PCP - General Internal Medicine 08/20/18 documented as of this encounter
--- OUTSIDE RECORDS SUMMARY | 2025-05-07 16:49 | XMS_ITS | Encounter Summary ---
Author Organization [employer] Address [address] [place] [address] 7 [place] [address] Care Team Providers Care Associate Store Leader Name Role Phone Stan Fletcher MD Primary Care Provider [phone] Reason for Visit * Reason Comments Med Refill Encounter Details Date Type Department Care Team ([facility] Contact Info) Description 02/23/2025 Refill [facility] CHC MED & PEDS [address] [place], [place] [phone] Stan Fletcher MD [address] [place] [address] Right sided sciatica Social History Tobacco Use [...] documented as of this encounter Care Teams Associate Store Leader Relationship Specialty Start Date End Date Stan Fletcher MD [address] [place] [phone] PCP - General Internal Medicine 08/20/18 documented as of this encounter
[2025-05-07 17:44] LABS: INTERNATIONAL NORM RATIO 1.2 (0.9-1.1); Prothrombin Time 14.0 SEC (10.9-12.4)
[2025-05-07 18:39] LABS: Iron 161 mcg/dL (45-160); Percent Iron Saturation 59 % (15-50); Total Iron Binding Capacity 273 mcg/dL (228-428); Unsaturated Iron Binding 112 ug/dL
[2025-05-07 18:49] LABS: Ferritin 619 ng/mL (20-250)
[2025-05-08 08:53] LABS: HBS Num1 0.00 mIU/mL (0-7.99); HBc Num1 0.04 S/CO (0.00-0.79); HBsAGNum1 0.58 S/CO (0.00-0.99); Hepatitis A Antibody IgM 0.15 Index (0-0.79); Hepatitis B Surface Antigen Negative (Negative); ~HepC Num1 0.07 S/CO (0.00-0.79); ~Hepatitis A Antibody IgM Nonreactive (Nonreactive); ~Hepatitis B Surface Antibody NONREACTIVE (Nonreactive); ~Hepatitis C Antibody Nonreactive (Nonreactive)
== END 2025-05-07 15:24 | disposition home or self-care (01) ==
LOC: HO.CHCLDS 15:23
PROVIDERS: Visit Provider Internal Medicine
DX: Z11.59 Encounter for screening for other viral diseases (principal); R74.01 Elevation of levels of liver transaminase levels; R19.7 Diarrhea, unspecified
CPT/HCPCS: 36415; 82728; 82784; 83540; 85610; 86704; 86706; 86709; 86803; 87340

== ENCOUNTER 2025-05-12 08:36 | Outpatient (REF) | payer MEDICARE, MEDICAID, SELFPAY ==
--- NOTE | ~2025-05-12 | XR_ITS ---
EXAMINATION: XR LUMBOSACRAL SPINE CLINICAL INFORMATION: M48.062 - Spinal stenosis, lumbar region with neurogenic claudication COMPARISON: April 07, 2025 TECHNIQUE: Lateral views in neutral, flexion and extension position. AP view. FINDINGS: No acute cortical disruption. No gross malalignment in neutral nor flexion or extension position. Endplate sclerosis, decreased intervertebral disc height and vacuum phenomenon and L5-S1.. Trans pedicles screws, bilaterally at L3-4. Intervertebral disc spacer placement L3-4 and L4-5. No lytic or blastic lesions. Small marginal osteophyte formation at multiple levels of the axial skeleton. Vascular calcifications, aorta. Vascular clips right upper quadrant abdomen. XR/XR lumbar spine 4V min IMPRESSION: No acute fracture or instability. Electronically signed by: Dion Cortez MD 05/12/2025 03:50 PM EDT
--- OUTSIDE RECORDS SUMMARY | 2025-05-13 09:39 | XMS_ITS | Encounter Summary ---
Author Organization [employer] [facility] Address [address] [place] [address] Care Team Providers Care Composition Instructor Name Role Phone Stan Fletcher MD Primary Care Provider [phone] Reason for Visit * Reason Comments Med Refill Encounter Details Date Type Department Care Team ([facility] Contact Info) Description 03/20/2023 Refill [facility] MED & PEDS [address] [place] [address] Stan Fletcher MD 505 [place] [address] Type 2 diabetes mellitus with hyperglycemia, with [...] 05/15/2025 10:15 AM EDT Clinical Support [facility] MED & PEDS [address] [place] [address] documented as of this encounter Visit Diagnoses Diagnosis Type 2 diabetes mellitus with hyperglycemia, with long-term current use of insulin (CMS/HCC) documented in this encounter Care Teams Composition Instructor Relationship Specialty Start Date End Date Stan Fletcher MD [address] [place] [address] PCP - General Internal Medicine 08/20/18 documented as of this encounter
--- OUTSIDE RECORDS SUMMARY | 2025-05-13 09:39 | XMS_ITS | Encounter Summary ---
Author Organization [employer] Address [address] [place] [address] 7 [place] [address] Care Team Providers Care Fine Sander Name Role Phone Stan Fletcher MD Primary Care Provider [phone] Reason for Visit * Reason Onset Date Comments Durable Medical Equipment 01/26/2023 Encounter Details Date Type Department Care Team ([facility] Contact Info) Description 01/26/2023 Telephone [facility] CHC MED & PEDS [address] [place], [place] [phone] Stan Fletcher MD [address] [place] [address] Durable Medical Equipment Social History Tobacco Use [...] CCA. For clarification, please contact pt at [phone] (Sign language) documented in this encounter Plan of Treatment Upcoming Encounters Date Type Department Care Team (Late st Contact Info) Description 05/15/2025 10:15 AM EDT Clinical Support [facility] CHC MED & PEDS [address] [place] [address] documented as of this encounter Visit Diagnoses Diagnosis Type 2 diabetes mellitus without complication, with long-term current use of insulin ([facility] Primary documented in this encounter Care Teams Fine Sander Relationship Specialty Start Date End Date Stan Fletcher MD [address] [place] [address] PCP - General Internal Medicine 08/20/18 documented as of this encounter
--- OUTSIDE RECORDS SUMMARY | 2025-05-13 09:39 | XMS_ITS | Encounter Summary ---
Author Organization [employer] Address [address] [place] [address] 7 [place] [address] Care Team Providers Care Railway Engineer Name Role Phone Stan Fletcher MD Primary Care Provider [phone] Encounter Details Date Type Department Care Team ([facility] Contact Info) Description 06/27/2023 Orders Only [facility] MED & PEDS [address] [place], [place] [phone] Stan Fletcher MD [address] [place] [address] Acute pain of left shoulder (Primary Dx) [...] Upcoming Encounters Date Type Department Care Team ([facility] Contact Info) Description 05/15/2025 10:15 AM EDT Clinical Support [facility] MED & PEDS [address] [place], [place] [phone] documented as of this encounter Visit Diagnoses Diagnosis Acute pain of left shoulder- Primary documented in this encounter Care Teams Railway Engineer Relationship Specialty Start Date End Date Stan Fletcher MD [address] [place] [address] PCP - General Internal Medicine 08/20/18 documented as of this encounter
--- OUTSIDE RECORDS SUMMARY | 2025-05-13 09:40 | XMS_ITS | Encounter Summary ---
Author Organization [employer] Address [address] [facility] 7 [place] [address] Care Team Providers Care Automobiles Salesperson Name Role Phone Stan Fletcher MD Primary Care Provider [phone] Reason for Visit * Reason Onset Date Comments Med Refill 11/05/2023 Encounter Details Date Type Department Care Team ([facility] st Contact Info) Description 11/05/2023 Telephone [facility] MEDICINE [address] [place] [address] Stan Fletcher MD 505 [place], [place] [phone] Med Refill Social History Tobacco Use Types [...] EDT Tc from [facility] at [facility] requesting scripts for Continuous Blood Gluc Backpackers Manager (FreeStyle Cathryn 2 [place]) device ,Continuous Blood Gluc Sensor (FreeStyle Cathryn 2 Sensor) misc and Precision Anjel Test Stripsit can be Faxed to [phone] documented in this encounter Plan of Treatment Upcoming Encounters Date Type Department Care Team (Late st Contact Info) Description 05/15/2025 10:15 AM EDT Clinical Support [facility] MED & PEDS [address] [place] [address] documented as of this encounter Visit Diagnoses Not on filedocumented in this encounter Care Teams Automobiles Salesperson Relationship Specialty Start Date End Date Stan Fletcher MD [address] [place] [address] PCP - General Internal Medicine 08/20/18 documented as of this encounter
--- OUTSIDE RECORDS SUMMARY | 2025-05-13 09:40 | XMS_ITS | Encounter Summary ---
Author Organization [employer] Address [address] [facility] 7t [place] [address] Care Team Providers Care Extrusion Bender Name Role Phone Stan Fletcher MD Primary Care Provider [phone] Encounter Details Date Type Department Care Team ([facility] Contact Info) Description 11/12/2024 Orders Only [facility] [address] [place] [address] ProviderMarcelle MD Social History Tobacco Use Types [...] Upcoming Encounters Date Type Department Care Team ([facility] st Contact Info) Description 05/15/2025 10:15 AM EDT Clinical Support [facility] CHC MED & PEDS 505 [place] [address] documented as of this encounter Procedures Procedure [...] documented as of this encounter Care Teams Extrusion Bender Relationship Specialty Start Date End Date Stan Fletcher MD [address] [place] [address] PCP - General Internal Medicine 08/20/18 documented as of this encounter
--- OUTSIDE RECORDS SUMMARY | 2025-05-13 09:40 | XMS_ITS | Encounter Summary ---
Author Organization [employer] Address [address] [place] [address] 7 [place] [address] Care Team Providers Care Elementary School Tutor Name Role Phone Stan Fletcher MD Primary Care Provider [phone] Encounter Details Date Type Department Care Team ([facility] Contact Info) Description 08/23/[address] [facility] MED & PEDS [address] [place] [address] Stan Fletcher MD [address] [place] [address] Social History Tobacco Use Types Packs/Day Years [...] Upcoming Encounters Date Type Department Care Team ([facility] Contact Info) Description 05/15/2025 10:15 AM EDT Clinical Support [facility] MED & PEDS [address] [place] [address] documented as of this encounter Visit Diagnoses Not on filedocumented in this encounter Care Teams Elementary School Tutor Relationship Specialty Start Date End Date Stan Fletcher MD [address] [place] [address] PCP - General Internal Medicine 08/20/18 documented as of this encounter
--- OUTSIDE RECORDS SUMMARY | 2025-05-13 09:40 | XMS_ITS | Encounter Summary ---
Author Organization [employer] Address [address] [facility] 7t [place] [address] Care Team Providers Care Paperhanger Pipe Name Role Phone Satn Fletcher MD Primary Care Provider [phone] Encounter Details Date Type Department Care Team ([facility] Contact Info) Description 05/12/2025 Telephone [facility] MEDICINE [address] [place] [address] Stan Fletcher MD [address] [place] [address] Social History Tobacco Use Types Packs/Day Years [...] for patient to contact Shelli Linder at [phone]. documented in this encounter Plan of Treatment Upcoming Encounters Date Type Department Care Team ([facility] st Contact Info) Description 05/15/2025 10:15 AM EDT Clinical Support [facility] CHC MED & PEDS [address] [place] [address] documented as of this encounter Visit Diagnoses Not on filedocumented in this encounter Additional Health Concerns Assessment Noted Time PHQ-9 Depression Total Score: 0 11/06/19 25 9:29 AM EDT documented as of this encounter Care Teams Paperhanger Pipe Relationship Specialty Start Date End Date Stan Fletcher MD [address] [place] [address] PCP - General Internal Medicine 08/20/18 documented as of this encounter
--- OUTSIDE RECORDS SUMMARY | 2025-05-13 09:40 | XMS_ITS | Encounter Summary ---
Author Organization [employer] Address [address] [place] [address] Care Team Providers Care Assistant Professor Of Art Name Role Phone Stan Fletcher MD Primary Care Provider [phone] Reason for Referral * Consultation (Routine) - Closed Specialty Diagnoses / Procedures Referred By Contac t Referred To Contact Gastroenterology Diagnoses Positive colorectal cancer screening using Cologuard test Stan Fletcher MD [address] [place] [address] Phone: tel: fax: Neli Jaeger MD [address] [place] [address] Phone: tel: fax: Referral ID Status Reason Start Date Expiration Date V isits Requested Visits Authorized [id number] Closed Specialty Services Required 12/14/2023 12/13/2024 1 1 Encounter Details Date Type Department Care Team ([facility] Contact Info) Description 12/14/2023 Orders Only [facility] CHC MED & PEDS [address] [place], [place] [phone] Stan Fletcher MD 505 [place], [place] [phone] Positive colorectal cancer screening using Cologuard test [...] Description 05/15/2025 10:15 AM EDT Clinical Support [facility] MED & PEDS [address] [place] [address] Scheduled Referrals Name Type Priority Associated Diagnoses [...] documented as of this encounter Care Teams Assistant Professor Of Art Relationship Specialty Start Date End Date Stan Fletcher MD [address] [place] [address] PCP - General Internal Medicine 08/20/18 documented as of this encounter
--- OUTSIDE RECORDS SUMMARY | 2025-05-13 09:40 | XMS_ITS | Encounter Summary ---
Author Organization [employer] Address [address] [place] [address] Care Team Providers Care Foreign Banknote Teller Trader Name Role Phone Stan Fletcher MD Primary Care Provider [phone] Reason for Referral * Imaging (Routine) - Authorized Specialty Diagnoses / Procedures Referred By Contac t Referred To Contact Radiology Diagnoses Decreased GFR Procedures US RENAL BI Stan Fletcher MD [address] [place] [address] Phone: tel: fax: [address] Phone: tel: fax: Referral ID Status Reason Start Date Expiration Date V isits Requested Visits Authorized [id number] Authorized 05/07/2025 05/07/2026 1 1 * Imaging (Routine) - Authorized Specialty Diagnoses / Procedures Referred By Contac t Referred To Contact Radiology Diagnoses Transaminitis Procedures US Abdomen Comp w elastography Stan Fletcher MD [address] [place] [address] Phone: tel: fax: [address] Phone: tel: fax: Referral ID Status Reason Start Date Expiration Date V isits Requested Visits Authorized [id number] Authorized 05/06/2025 05/06/2026 1 1 Encounter Details Date Type Department Care Team ([facility] st Contact Info) Description 05/05/2025 Orders Only [facility] CHC MED & PEDS [address] [place] [address] Stan Fletcher MD [address] [place] [address] Transaminitis (Primary Dx); Decreased GFR Social History [...] Description 05/15/2025 10:15 AM EDT Clinical Support [facility] CHC MED & PEDS [address] [place] [address] Scheduled Orders Name Type Priority Associated Diagnoses [...] EDT) Iron 161(H) 45 - 160 mcg/dL [facility] Total Iron Binding Capacity 273 228 - 428 mcg/dL [facility] Percent Iron Saturation 59(H) 15 - 50 % [facility] Unsaturated Iron Binding 112 ug/dL [facility] Blood Venous blood specimen / Unknown 05/07/2025 3:25 PM EDT 05/07/2025 5:39 PM EDT us Stan Fletcher MD LAB BLOOD ORDERABLES Final Result Performing Organization Address [facility]/ZIP Co de Phone Number [facility] [address] [place] [phone] * (ABNORMAL) Ferritin (05/07/2025 3:25 PM EDT) Ferritin 619(H) 20 - 250 ng/mL [facility] Blood Venous blood specimen / Unknown 05/07/2025 3:25 PM EDT 05/07/2025 5:39 PM EDT us Stan Fletcher MD LAB BLOOD ORDERABLES Final Result Performing Organization Address [facility] de Phone Number [facility] [address] [place] [phone] * (ABNORMAL) Prothrombin Time-INR (05/07/2025 3:25 PM EDT) Prothrombin Time 14.0(H) 10.9 - 12.4 SEC [facility] INTERNATIONAL NORM RATIO 1.2(H) 0.9 - 1.1 [facility] Comment:INTERNATIONAL NORMAL IZED RATIO (INR) [...] BLOOD ORDERABLES Final Result Performing Organization Address [facility] Co de Phone Number [facility] [address] [place] [phone] * Immunoglobulins, Quantitative, IgA, IgG, IgM (05/07/2025 3:25 PM EDT) IMMUNOGLOBULIN G 982 600 - 1540 mg/dL [facility] IMMUNOGLOBULIN A 142 70 - 320 mg/dL [facility] Immunoglobulin M 86 50 - 300 mg/dL [facility] Comment:THIS TEST WAS PERFOR MED AT:[facility] [place] [phone] MANRIQUEZ MD Blood Venous blood specimen / Unknown 05/07/2025 3:25 PM EDT 05/07/2025 5:39 PM EDT us Stan Fletcher MD LAB BLOOD ORDERABLES Final Result Performing Organization Address [facility] Co de Phone Number [facility] [address] [place] [phone] documented in this encounter Visit Diagnoses Diagnosis Transaminitis- Primary Nonspecific elevation of levels of transaminase or lactic acid dehydrogenase (LDH) Decreased GFR documented in this encounter Additional Health Concerns Assessment Noted Time PHQ-9 Depression Total Score: 0 11/06/19 25 9:29 AM EDT documented as of this encounter Care Teams Foreign Banknote Teller Trader Relationship Specialty Start Date End Date Stan Fletcher MD [address] [place] [address] PCP - General Internal Medicine 08/20/18 documented as of this encounter
--- OUTSIDE RECORDS SUMMARY | 2025-05-13 09:40 | XMS_ITS | Encounter Summary ---
Author Organization [employer] Address [address] [facility] 7t [place] [address] Care Team Providers Care Steam Box Hand Name Role Phone Stan Fletcher MD Primary Care Provider [phone] Encounter Details Date Type Department Care Team ([facility] Contact Info) Description 05/08/2025 Results Follow-Up [facility] [address] [place] [address] Gloria Tyson, CAPRICE [address] [place] [address] Prothrombin Time-INR, Ferritin, Iron And Total Iron [...] EDT To: MD Stan Ragsdale MD to [facility] Med & Peds Nurses (Selected Message) TB 05/08/25 11:43 AM Please call Mr Nick Escobar that his hep B is neg which indicate he has not immunity againstHep B. He needs to be vaccinated. T/C to pt via [employer] wellness ambassador #[id number]. Pt reports agreement with plan. States he will seek immunization for Hep B at [facility] and call to schedule nurse visit if he is not able to be vaccinated at [facility]. Pt requesting information about liver enzymes. States provider mentioned something was abnormal aboutliver labs. Reviewed lifestyle recommendations. Pt reports that he does not drink alcohol and walksregularly. documented in this encounter Plan of Treatment Upcoming Encounters Date Type Department Care Team (Late st Contact Info) Description 05/15/2025 10:15 AM EDT Clinical Support [facility] MED & PEDS [address] [place] [address] documented as of this encounter Visit Diagnoses Not on filedocumented in this encounter Additional Health Concerns Assessment Noted Time PHQ-9 Depression Total Score: 0 11/06/19 25 9:29 AM EDT documented as of this encounter Care Teams Steam Box Hand Relationship Specialty Start Date End Date Stan Fletcher MD 505 [place] [address] PCP - General Internal Medicine 08/20/18 documented as of this encounter
--- OUTSIDE RECORDS SUMMARY | 2025-05-13 09:40 | XMS_ITS | Encounter Summary ---
Author Organization [employer] Address [address] [place] [address] 7 [place] [address] Care Team Providers Care Market Risk Manager Name Role Phone Stan Fletcher MD Primary Care Provider [phone] Reason for Visit * Reason Onset Date Comments Appointment Request 05/08/2025 Encounter Details Date Type Department Care Team ([facility] Contact Info) Description 05/08/2025 Telephone [facility] CHC MED & PEDS [address] [place], [place] [phone] Stan Fletcher MD 505 [place] [address] Appointment Request Social History Tobacco Use Types [...] back regarding prior message Contact pt at [phone] (sign language) * Telephone Encounter - Fish French - 05/08/2025 2:37 PM EDT Tc from pt requesting to schedule at for hep B injection Contact pt at [phone] (sign language) documented in this encounter Plan of Treatment Upcoming Encounters Date Type Department Care Team (Late st Contact Info) Description 05/15/2025 10:15 AM EDT Clinical Support [facility] MED & PEDS [address] [place] [address] documented as of this encounter Visit Diagnoses Not on filedocumented in this encounter Additional Health Concerns Assessment Noted Time PHQ-9 Depression Total Score: 0 11/06/19 25 9:29 AM EDT documented as of this encounter Care Teams Market Risk Manager Relationship Specialty Start Date End Date Stan Fletcher MD [address] [place] [address] PCP - General Internal Medicine 08/20/18 documented as of this encounter
--- OUTSIDE RECORDS SUMMARY | 2025-05-13 09:40 | XMS_ITS | Encounter Summary ---
Author Organization [employer] [facility] Address [address] [place] [address] 7 [place] [address] Care Team Providers Care National Recruiter Name Role Phone Stan Fletcher MD Primary Care Provider [phone] Encounter Details Date Type Department Care Team ([facility] Contact Info) Description 08/03/2022 Telephone [facility] MED & PEDS [address] [place] [address] Stan Fletcher MD [address] [place] [address] Social History Tobacco Use Types Packs/Day Years [...] 10:15 AM EDT Clinical Support [facility] MED & PEDS [address] [place] [address] documented as of this encounter Visit Diagnoses Not on filedocumented in this encounter Care Teams National Recruiter Relationship Specialty Start Date End Date Stan Fletcher MD [address] [place] [address] PCP - General Internal Medicine 08/20/18 documented as of this encounter
--- OUTSIDE RECORDS SUMMARY | 2025-05-13 09:40 | XMS_ITS | Encounter Summary ---
Author Organization [employer] Address [address] [facility] [address] 7[address] [place] [address] Care Team Providers Care Matrix Worker Name Role Phone Stan Fletcher MD Primary Care Provider [phone] Encounter Details Date Type Department Care Team [...] Upcoming Encounters Date Type Department Care Team ([facility] st Contact Info) Description 05/15/2025 10:15 AM EDT Clinical Support [facility] MED & PEDS [address] [place] [address] documented as of this encounter Visit Diagnoses Not on filedocumented in this encounter Additional Health Concerns Assessment Noted Time PHQ-9 Depression Total Score: 0 11/06/19 25 9:29 AM EDT documented as of this encounter Care Teams Matrix Worker Relationship Specialty Start Date End Date Stan Fletcher MD 505 [place] [address] PCP - General Internal Medicine 08/20/18 documented as of this encounter
--- OUTSIDE RECORDS SUMMARY | 2025-05-13 09:40 | XMS_ITS | Encounter Summary ---
Author Organization [employer] Address [address] [facility] 7 [place] [address] Care Team Providers Care Geographic Area Intelligence Officer Name Role Phone Stan Fletcher MD Primary Care Provider [phone] Reason for Visit * Reason Onset Date Comments Medication Question 04/29/2025 Encounter Details Date Type [facility] Description 04/29/2025 Telephone [facility] CHC MED & PEDS [address] [place], [place] [phone] Stan Fletcher MD 505 [place] [address] Medication Question Social History Tobacco Use Types [...] very loose stool . Contact pt at [phone] (sign language) documented in this encounter Plan of Treatment Upcoming Encounters Date Type Department Care Team (Late st Contact Info) Description 05/15/2025 10:15 AM EDT Clinical Support [facility] CHC MED & PEDS [address] [place] [address] documented as of this encounter Visit Diagnoses Not on filedocumented in this encounter Additional Health Concerns Assessment Noted Time PHQ-9 Depression Total Score: 0 11/06/19 25 9:29 AM EDT documented as of this encounter Care Teams Geographic Area Intelligence Officer Relationship Specialty Start Date End Date Stan Fletcher MD 505 [place] [address] PCP - General Internal Medicine 08/20/18 documented as of this encounter
--- OUTSIDE RECORDS SUMMARY | 2025-05-13 09:40 | XMS_ITS | Encounter Summary ---
Author Organization [employer] Address [address] [place] [address] 7 [place] [address] Care Team Providers Care Account Manager Trainee Name Role Phone Stan Fletcher MD Primary Care Provider [phone] Encounter Details Date Type Department Care Team ([facility] Contact Info) Description 07/16/2023 Orders Only [facility] MED & PEDS 505 [place], [place] [phone] Stan Fletcher MD [address] [place] [address] Social History Tobacco Use Types Packs/Day Years [...] Upcoming Encounters Date Type Department Care Team ([facility] Contact Info) Description 05/15/2025 10:15 AM EDT Clinical Support [facility] MED & PEDS [address] [place], [place] [phone] documented as of this encounter Procedures Procedure Name Priority Date/Time Associated Diagnosis Comments MR SHOULDER WO CONTRAST LEFT Routine 08/07/2023 8:15 AM EST documented in this encounter Results * MR Shoulder w/o Contrast Left (08/07/2023 8:15 AM EST) Anatomical Region Laterality Modality Upper Extremities, Shoulder Left Magn etic Resonance 08/07/2023 8:15 AM EST Narrative 08/07/2023 3:29 PM EST [address] [address] Magnetic Resonance Report Signed Patient: Nick Escobar MR#: [id number] : 1960 Acct:[id number] Age/Sex: 62 / M ADM Date: 08/07/23 Loc: HO.MRI Attending Dr: Eddie Lawler MD Ordering Physician: Eddie Lawler MD Date of Service: 08/07/23 Procedure(s): MR shoulder LT wo con Accession Number(s): [id number] cc: Stan Fletcher MD; Eddie Lawler MD EXAMINATION: MR SHOULDER WITHOUT CONTRAST, LEFT CLINICAL INFORMATION: Posterior left shoulder and arm pain since 06/23/2023. Impingement syndrome. COMPARISON: Left shoulder radiographs dated 06/26/2023. TECHNIQUE: MRI of the shoulder was performed using routine sequences on a high-field scanner. FINDINGS: ROTATOR CUFF: Jdic-ag-bqjqstgv supraspinatus tendinosis with anterior bursal surface fraying [...] MR/MR shoulder LT wo con IMPRESSION: 1. Hflb-op-mtelamau supraspinatus tendinosis with anterior bursal surface fraying [...] in OV> 08/07/23 1526 DD/ 0815 TD/TT: Leather Crafter: Procedure Note Donotuseinterpreter, Image - 08/07/2023 [place] [address] Magnetic Resonance Report Signed Patient: Nick EscobarMR#: [id number] : 1960Acct:[id number] Age/Sex: 62 / MADM Date: 08/07/23 Loc: HO.MRI Attending Dr: Eddie Lawler MD Ordering Physician: Eddie Lawler MD Date of Service: 08/07/23 Procedure(s): MR shoulder LT wo con Accession Number(s): [id number] cc: Stan Fletcher MD; Eddie Lawler MD EXAMINATION: MR SHOULDER WITHOUT CONTRAST, LEFT CLINICAL INFORMATION: Posterior left shoulder and arm pain since 06/23/2023. Impingement syndrome. COMPARISON: Left shoulder radiographs dated 06/26/2023. TECHNIQUE: MRI of the shoulder was performed using routine sequences on a high-field scanner. FINDINGS: ROTATOR CUFF: Ltev-bd-ntrpsazk supraspinatus tendinosis with anterior bursal surface fraying [...] MR/MR shoulder LT wo con IMPRESSION: 1. Jbjv-aq-apeingpl supraspinatus tendinosis with anterior bursal surface fraying [...] in OV> 08/07/23 1526 DD/ 0815 TD/TT: Leather Crafter: [facility] External Provider IMG MRI PROCEDURES Final Result documented in this encounter Visit Diagnoses Not on filedocumented in this encounter Care Teams Account Manager Trainee Relationship Specialty Start Date End Date Stan Fletcher MD [address] [place] [address] PCP - General Internal Medicine 08/20/18 documented as of this encounter
--- OUTSIDE RECORDS SUMMARY | 2025-05-13 09:40 | XMS_ITS | Encounter Summary ---
Author Organization [email or web address] Address [address] [place] [address] 7 [place] [address] Care Team Providers Care Lime Sludge Mixer Name Role Phone Stan Fletcher MD Primary Care Provider [phone] Reason for Visit * Reason Onset Date Comments Nurse Triage 08/23/2023 Encounter Details Date Type Department Care Team ([facility] st Contact Info) Description 08/23/2023 Telephone [facility] CHC MED & PEDS [address] [place], [place] [phone] Stan Fletcher MD [address] [place], [place] [phone] Nurse Triage Social History Tobacco Use Types [...] 3:50 PM EST Called pt. Back via dormitory maid #[phone]. Called pt. Asked him if he has any Covid tests at home to test himself for Covid. Pt. States he has a test at home but, he currently at Pharmacy picking up some OTC cough medicine. I will call pt. Back at 430pm to see what Covid test result is as pt. States he lives [place] from [facility]. Called pt. Back via dormitory maid #[phone]. Pt. Took Covid test and it came out Negative. Pt. ShowedASL support architect over video and she states that only [...] 2:53 PM EST Called pt. Back via dormitory maid. Rock Wool Applicator #[phone]. Pt. States that he has a productive [...] accepted this outcome Please contact pt @ [phone] Sign Language documented in this encounter Plan of Treatment Upcoming Encounters Date Type Department Care Team ([facility] st Contact Info) Description 05/15/2025 10:15 AM EDT Clinical Support [facility] MED & PEDS [address] [place] [address] documented as of this encounter Visit Diagnoses Not on filedocumented in this encounter Care Teams Lime Sludge Mixer Relationship Specialty Start Date End Date Stan Fletcher MD [address] [place] [address] PCP - General Internal Medicine 08/20/18 documented as of this encounter
--- OUTSIDE RECORDS SUMMARY | 2025-05-13 09:40 | XMS_ITS | Encounter Summary ---
Author Organization [facility] Address [address] [place] [address] Care Team Providers Care Youth Pastor Name Role Phone Stan Fletcher MD Primary Care Provider [phone] Reason for Visit * Reason Comments Med Refill Encounter Details Date Type Department Care Team ([facility] Contact Info) Description 08/29/2022 Refill [facility] MED & PEDS [address] [place] [address] Stan Fletcher MD [address] [place] [address] Chronic pain syndrome Social History Tobacco Use [...] Encounters Date Type Department Care Team ([facility] Contact Info) Description 05/15/2025 10:15 AM EDT Clinical Support [facility] MED & PEDS [address] [place], [place] [phone] documented as of this encounter Visit Diagnoses Diagnosis Chronic pain syndrome documented in this encounter Care Teams Youth Pastor Relationship Specialty Start Date End Date Stan Fletcher MD [address] [place], [place] [phone] PCP - General Internal Medicine 08/20/18 documented as of this encounter
--- OUTSIDE RECORDS SUMMARY | 2025-05-13 09:40 | XMS_ITS | Encounter Summary ---
Author Organization [employer] Address [address] [place] [address] [place], [place] [address] Care Team Providers Care Tower Attendant Name Role Phone Stan Fletcher MD Primary Care Provider [phone] Reason for Referral * Consultation (Routine) - Closed Specialty Diagnoses / Procedures Referred By Contac t Referred To Contact Endocrinology Diagnoses Diabetes mellitus due to underlying condition with hyperglycemia, with long-term current use of insulin (CMS/HCC) Stan Fletcher MD [address] [place] [address] Phone: tel: fax: [facility] [address] [place] [address] Phone: tel: fax: Referral ID Status Reason Start Date Expiration Date V isits Requested Visits Authorized [id number] Closed Specialty Services Required 12/18/2024 12/18/2025 1 1 Encounter Details Date Type Department Care Team (Late st Contact Info) Description 12/10/2024 Orders Only [facility] CHC MED & PEDS [address] [place] [address] Stan Fletcher MD [address] [place] [address] Type 2 diabetes mellitus without complication, with [...] Description 05/15/2025 10:15 AM EDT Clinical Support [facility] CHC MED & PEDS [address] [place] [address] Scheduled Referrals Name Type Priority Associated Diagnoses [...] EDT) Sodium 140 135 - 145 mmol/L [facility] Potassium 4.9 3.3 - 5.1 mmol/L [facility] Chloride 109(H) 96 - 108 mmol/L [facility] Carbon Dioxide 24 22 - 29 mmol/L [facility] Anion Gap 12 12 - 20 [facility] Urea Nitrogen (BUN) 47(H) 9 - 16 mg/dL [facility] Creatinine, Serum 1.46(H) 0.5 - 1.4 mg/dL [facility] Estimated Glomerular Filt Rate 49 [facility] Comment:Chronic Kidney Disea se: Estimated GFR < 60 mL/min/1.43s5Hkgilz Kidney Disease: Estimated GFR < 15 mL/min/1.73m2 Glucose 87 60 - 115 mg/dL [facility] Calcium 9.5 8.4 - 10.2 mg/dL [facility] Blood Venous blood specimen / Unknown 02/10/2025 10:40 AM EDT 02/10/2025 1:58 PM EDT us Stan Fletcher MD LAB BLOOD ORDERABLES Final Result [facility] [address] [place], [place] [phone] documented in this encounter Visit Diagnoses Diagnosis Type 2 diabetes mellitus without complication, with long-term current use of insulin ([facility])- Primary Primary hypertension Unspecified essential hypertension Diabetes mellitus due to underlying condition with hyperglycemia, with long-term current use of insulin ([facility]) documented in this encounter Additional Health Concerns Assessment Noted Time PHQ-9 Depression Total Score: 0 11/06/19 25 9:29 AM EDT documented as of this encounter Care Teams Tower Attendant Relationship Specialty Start Date End Date Stan Fletcher MD [address] [place] [address] PCP - General Internal Medicine 08/20/18 documented as of this encounter
--- OUTSIDE RECORDS SUMMARY | 2025-05-13 09:41 | XMS_ITS | Clinical Summary ---
Author Organization [employer] Address [address] [facility] 7 [place] [address] Care Team Providers Care Supervisor Border Department Name Role Phone Stan Fletcher MD Primary Care Provider [phone] Allergies Active Allergy Reactions Criticality Noted Date [...] mL 11 2022 Active Continuous Blood Gluc Train Examiner (FreeStyle Cathryn 2 [place]) deviceIndications:Type 2 diabetes mellitus without complication, with long-term current use of insulin ([facility]) To use daily 1 each 2022 Active Continuous Blood Gluc Sensor (FreeStyle Cathryn 2 Sensor) miscIndications:Type 2 diabetes mellitus without complication, with long-term current use of insulin ([facility]) To use daily 2 each 11 2022 [...] hyperglycemia, with long-term current use of insulin ([facility]) INJECT 12 UNITS SUBCUTANEOUSLY THREE TIMES DAILY [...] complication, with long-term current use of insulin ([facility]) Inject 12 Units as directed 3 times daily. 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 Do not crush or chew. 60 capsule 11 2023 Active Continuous Glucose Train Examiner (FreeStyle Cathryn 2 [place]) deviceIndications:Type 2 diabetes mellitus without complication, with long-term current use of insulin ([facility]) Scan sensor every 8 hours 1 each 2023 Active Continuous Glucose Sensor (FreeStyle Cathryn 2 Sensor) miscIndications:Type 2 diabetes mellitus without complication, with long-term current use of insulin ([facility]) Apply 1 sensor every 14 days 2 each 2023 Active atorvastatin (Lipitor) 40 MG tabletIndications:Pure hypercholesterolemia TAKE ONE TABLET EVERY MORNING 30 tablet 11 2023 Active Lantus SoloStar 100 UNIT/ML pen INJECT 60 UNITS SUBCUTANEOUSLY ONCE DAILY 30 mL 2023 Active TechLite Pen Peck 32G X 6 MM misc USE FOUR [...] complication, with long-term current use of insulin ([facility]) Take 1 tablet (100 mg) by mouth Once per day. 90 tablet 3 2024 Active metoprolol succinate XL (Toprol XL) 25 MG 24 hr tabletIndications:Prim janeth hypertension Take 1 tablet (25 mg) by mouth Once per day. Do not crush or chew. 30 tablet 04/22 Active glucose blood (OneTouch Ultra) test stripIndications:Type 2 diabetes mellitus without complication, with long-term current use of insulin ([facility]) To use 2 times a day 100 [...] Type Department Care Team Description 05/12/2025 Telephone [facility] [address] [place] [phone] Stan Fletcher MD 05/12/2025 Travel 05/08/2025 Telephone [facility] [address] [place] [address] Stan Fletcher MD Appointment Request 05/08/2025 Results Follow-Up [facility] [address] [place] [address] Gloria Tyson, CAPRICE Prothrombin Time-INR, Ferritin, Iron And Total Iron Binding Capacity 05/07/2025 2:45 PM EDT Office Visit [facility] [address] [place] [address] Stan Fletcher MD Diarrhea, unspecified type (Primary Dx); Primary hypertension; Type 2 diabetes mellitus without complication, with long-term current use of insulin ([facility]); Transaminitis; Irritant contact dermatitis due to other agents; Primary insomnia 05/07/2025 Results Follow-Up [facility] [address] [place] [address] Cheryl Melendez RN Glucose, Whole Blood, Basic Metabolic Panel, AST, ALT 05/07/2025 Travel 05/07/2025 Telephone [facility] [address] [place] [address] Stan Fletcher MD Nurse Triage 05/06/2025 Telephone [facility] [address] [place] [address] Stan Mojica MD Call Back Request; fyi 05/05/2025 Orders Only [facility] [address] [place] [address] Stan Mojica MD Transaminitis (Primary Dx); Decreased GFR 05/05/2025 Orders Only GENERIC EXTERNAL DATA DEPARTMENT Provider, Generic External Data 04/29/2025 Telephone [facility] [address] [place] [address] Stan Fletcher MD Medication Question 04/22/2025 2:15 PM EDT Office Visit [facility] [address] [place] [address] Stan Fletcher MD Type 2 diabetes mellitus without complication, with long-term current use of insulin ([facility]) (Primary Dx); Primary hypertension; Right hip pain 04/22/2025 Travel 04/21/2025 Telephone [facility] [address] [place] [address] Stan Fletcher MD Chart Prep 04/21/[address] [address] Stan Fletcher MD Nurse Triage 03/30/2025 Telephone [facility] [address] [place] [address] Stan Fletcher MD Med Refill 03/19/[address] [address] Stan Fletcher MD Appointment Request 03/16/2025 Telephone [facility] [address] [place] [address] Stan Fletcher MD Medication Question 03/04/2025 Telephone [facility] [address] [place] [address] Stan Fletcher MD Medication Question 03/03/[address] [address] Stan Fletcher MD Nurse Triage 03/02/2025 Refill [facility] [address] [place] [address] Stan Fletcher MD Right sided sciatica 02/25/2025 Telephone [facility] [address] [place] [address] Stan Fletcher MD Referral 02/24/[address] [address] Stan Fletcher MD Appointment Request 02/23/2025 Telephone [facility] [address] [place] [address] Stan Fletcher MD Medication Question 02/23/2025 Refill [facility] [address] [place] [address] Stan Fletcher MD Right sided sciatica 02/13/2025 Orders Only [facility] [address] [facility] [address] Stan Fletcher MD Type 2 diabetes mellitus without complication, with long-term current use of insulin (CMS/HCC) (Primary Dx) 02/13/2025 Telephone [facility] [address] [place] [address] Stan Fletcher MD Nurse Triage 02/12/2025 Telephone [facility] [address] [place] [address] Stan Fletcher MD Medication Question 02/12/2025 Refill [facility] [address] [place] [address] Stan Fletcher MD 02/11/2025 Results Follow-Up [facility] [address] [place] [address] Stan Fletcher MD POCT Glucose, Hepatitis C Antibody with Reflex to HCV, RNA, Quantitative, Real-Time PCR 02/11/2025 Results Follow-Up [facility] [address] [place] [address] Rupa Rain, CAPRICE Basic Metabolic Panel 02/10/2025 10:00 AM EDT Office Visit [facility] [address] [place] [address] Stan Fletcher MD Primary hypertension (Primary Dx); [...] Description 05/15/2025 10:15 AM EDT Clinical Support [facility] [address] [place] [address] Health Maintenance Due Date Last Done Comments [...] PM EDT) Hepatitis A IgM Nonreactive Nonreactive [facility] Comment:IgM antibodies to AVERY V not detected; does not exclude earlyacute or recovered HAV infection. ~Hepatitis B Surface Antibody NONREACTIVE Nonreactive [facility] Comment:Nonreactive: < 8.00 mIU/mL Hepatitis B Core Antibody Nonreactive Nonreactive [facility] Hepatitis C Antibody Nonreactive Nonreactive [facility] Comment:Antibodies to HCV no t detected; does not exclude early acuteHCV infection. Hepatitis B Surface Ag Negative Negative [facility] Blood Venous blood specimen / Unknown 05/07/2025 3:25 PM EDT 05/07/2025 5:39 PM EDT us Stan Fletcher MD LAB BLOOD ORDERABLES Final Result Performing Organization Address City/[facility]/ZIP Co de Phone Number [facility] [address] [place] [address] [phone] * (ABNORMAL) Iron And Total Iron Binding Capacity (05/07/2025 3:25 PM EDT) Iron 161(H) 45 - 160 mcg/dL [facility] Total Iron Binding Capacity 273 228 - 428 mcg/dL [facility] Percent Iron Saturation 59(H) 15 - 50 % [facility] Unsaturated Iron Binding 112 ug/dL [facility] Blood Venous blood specimen / Unknown 05/07/2025 3:25 PM EDT 05/07/2025 5:39 PM EDT us Stan Fletcher MD LAB BLOOD ORDERABLES Final Result Performing Organization Address [facility]/ZIP Co de Phone Number [facility] [address] [place] [phone] * (ABNORMAL) Prothrombin Time-INR (05/07/2025 3:25 PM EDT) Prothrombin Time 14.0(H) 10.9 - 12.4 SEC [facility] INTERNATIONAL NORM RATIO 1.2(H) 0.9 - 1.1 [facility] Comment:INTERNATIONAL NORMAL IZED RATIO (INR) [...] BLOOD ORDERABLES Final Result Performing Organization Address [facility] Co de Phone Number [facility] [address] [place] [phone] * Immunoglobulins, Quantitative, IgA, IgG, IgM (05/07/2025 3:25 PM EDT) Pathologist [facility] IMMUNOGLOBULIN G 982 600 - 1540 mg/dL [facility] IMMUNOGLOBULIN A 142 70 - 320 mg/dL [facility] Immunoglobulin M 86 50 - 300 mg/dL [facility] Comment:THIS TEST WAS PERFOR MED AT:[employer] [address] [id number] MANRIQUEZ MD Blood Venous blood specimen / Unknown 05/07/2025 3:25 PM EDT 05/07/2025 5:39 PM EDT Stan Flethcer MD LAB BLOOD ORDERABLES Final Result Performing Organization Address [facility]/ZIP Co de Phone Number [facility] [address] [place] [phone] * (ABNORMAL) Ferritin (05/07/2025 3:25 PM EDT) Ferritin 619(H) 20 - 250 ng/mL [facility] Blood Venous blood specimen / Unknown 05/07/2025 3:25 PM EDT 05/07/2025 5:39 PM EDT us Stan Fletcher MD LAB BLOOD ORDERABLES Final Result Performing Organization Address [facility]/ZIP Co de Phone Number [facility] [address] [place] [phone] * (ABNORMAL) ALT (05/05/2025 11:40 AM EDT) Alanine Aminotransferase 72(H) 0 - 40 U/L [facility] 05/05/2025 11:4 0 AM EDT 05/05/2025 11:40 AM EDT us Generic External Data Provider LAB BLOOD ORDERAB LES Final Result Performing Organization Address [facility] Co de Phone Number [facility] [address] [place] [phone] * (ABNORMAL) AST (05/05/2025 11:40 AM EDT) Pathologist [facility] Aspartate Amino Transferase 49(H) 5 - 37 U/L [facility] 05/05/2025 11:4 0 AM EDT 05/05/2025 11:40 AM EDT us Generic External Data Provider LAB BLOOD ORDERAB LES Final Result Performing Organization Address [facility] Co de Phone Number [facility] [address] [place] [phone] * (ABNORMAL) Basic Metabolic Panel (05/05/2025 11:40 AM EDT) Only the most recent of2 resultswithin the time period is included. Sodium 142 135 - 145 mmol/L [facility] Potassium 4.4 3.3 - 5.1 mmol/L [facility] Chloride 108 96 - 108 mmol/L [facility] Carbon Dioxide 27 22 - 29 mmol/L [facility] Anion Gap 11(L) 12 - 20 [facility] Urea Nitrogen (BUN) 32(H) 9 - 16 mg/dL [facility] Creatinine, Serum 1.41(H) 0.5 - 1.4 mg/dL [facility] Estimated Glomerular Filt Rate 51 [facility] Comment:Chronic Kidney Disea se: Estimated GFR < 60 mL/min/[id number] Kidney Disease: Estimated GFR < 15 mL/min/1.73m2 Glucose 100 60 - 115 mg/dL [facility] Calcium 9.4 8.4 - 10.2 mg/dL [facility] 05/05/2025 11:4 0 AM EDT 05/05/2025 11:40 AM EDT us Generic External Data Provider LAB BLOOD ORDERAB LES Final Result Performing Organization Address [facility] Co de Phone Number [facility] [address] [place] [phone] * Glucose, Whole Blood (05/05/2025 10:14 AM EDT) Glucose, Whole Blood 78 60 - 115 mg/dL [facility] Comment:METER #: [id number] Testing performed in the Endocrinology Department [address] , [address], [facility]. 05/05/2025 10:1 4 AM EDT 05/05/2025 10:17 AM EDT us Generic External Data Provider LAB BLOOD ORDERAB LES Final Result Performing Organization Address [facility] Co de Phone Number [facility] [address] [place] [phone] * (ABNORMAL) POCT HGB A1C (04/22/2025 4:07 PM EDT) [facility] Hemoglobin A1C 6.7(A) 4.0 - 5.7 % QC Media Lot # [id number] Lot# Expiration Date Blood 04/22/2025 4:07 PM EDT us Stan Fletcher MD POINT OF CARE TEST ENTER/ED IT ORDERABLES Final Result * (ABNORMAL) POCT Glucose (04/22/2025 4:07 PM EDT) Only the most recent of2 resultswithin the time period is included. [facility] Glucose Blood, POC 248(A) 60 - 200 mg/dL QC Media Lot # [id number] Lot# Expiration Date Comment:random Blood Capillary blood specimen / Unknown 04/22/2025 4:07 PM EDT us Stan Fletcher MD POINT OF CARE TEST ENTER/ED IT ORDERABLES Final Result * Hepatitis C Antibody with Reflex to HCV, RNA, Quantitative, Real-Time PCR (02/10/2025 10:40 AM EDT) [facility] Hepatitis C Antibody Nonreactive Nonreactive [facility] Comment:Antibodies to HCV no t detected; does not exclude early acuteHCV infection. Blood Venous blood specimen / Unknown 02/10/2025 10:40 AM EDT 02/10/2025 1:58 PM EDT Stan Fletcher MD LAB BLOOD ORDERABLES Final Result [facility] [address] [place] [phone] [phone] * (ABNORMAL) Lipid Panel, Standard (11/12/2024 11:34 AM EDT) Triglycerides 176(H) <150 mg/dL [facility] Comment:Desirable Triglyceri de: less than 150 mg/dLBorderline High Triglyceride 150-199 mg/dLHigh Triglyceride: 200-499 mg/dLVery High Triglyceride: greater than or equal to 5OO mg/dL Cholesterol 116 <200 mg/dL [facility] Comment:Desirable Cholestero l: less than 200 mg/dLBorderline High Cholesterol: 200-239 mg/dLHigh Cholesterol: greater than 239 mg/dL LDL Cholesterol Calculated 49 <100 mg/dL [facility] Comment:Desirable LDL: less than 100 mg/dLNear Optimal/Above Optimal LDL: 110- 129 mg/dLBorderline High LDL: 130-159 mg/dLHigh LDL: 160-189 mg/dLVery High LDL: greater than or equal to 190 mg/dL HDL Cholesterol 32(L) >40 mg/dL [facility] Comment:Desirable HDL: great er than 40 mg/dL Note: This HDL assay may give artificially low results in patients with liver disease. Blood Venous blood specimen / Unknown 11/12/2024 11:34 AM EDT 11/12/2024 2:15 PM EDT Stan Fletcher MD LAB BLOOD ORDERABLES Final Result [facility] [address] [place] [phone] * Diabetes Eye Exam (11/11/2024 4:01 PM EDT) Historical Provider HEALTH MAINTENANCE Final Result * Albumin, Random Urine W/Creatinine (11/05/2024 10:17 AM EDT) Creatinine, Urine 98.24 mg/dL [facility] Microalbumin Urine 20.0 mg/L [facility] Microalbum Creatinine Ratio Ur 20.3 <30 ug/mg cr [facility] Comment:Albumin/Creatinine R atio Reference Ranges: Normal: < 30 ug/mg creatinine Microalbuminuria: 30 - 300 ug/mg creatinineClinical Albuminuria: > 300 ug/mg creatinine Urine (Urine, Random) 11/05/2024 10:17 AM EDT 11/05/2024 2:07 PM EDT us Stan Fletcher MD LAB URINE ORDERABLES Final Result [facility] [address] [place] [phone] * (ABNORMAL) Cologuard?? colon cancer screening (12/06/2023 7:58 AM EDT) Cologuard Result Positive( A) Negative 12/13/2023 5:48 PM EDT [employer] (CLIA #:[id number]) Comment: POSITIVE TEST RESULT. A positive Cologuard [...] (Saritha Otto al, N Engl J Med 2014;370(14):8549-5328.) Cologuard may produce a false negative or false positive result (no colorectal cancer or precancerous polyp present at colonoscopy follow up). A negative Cologuard test result does not guarantee the absence of CRC or advanced adenoma (pre-cancer). The current Cologuard screening interval is every 3 years. ([employer] and U.S. Multi-Society Task Force). Cologuard performance data in a 10,000 patient pivotal study using colonoscopy as the reference method can be accessed at the following location: www.eMagin/results. Additional description of the Cologuard test process, warnings and precautions can be found at www.cologuard.com. Stool specimen (specimen) Rectal contents / Unknown 12/06/2023 7:58 AM EDT 12/07/2023 10:55 AM EDT Stan Fletcher MD LAB MOLECULAR DIAGNOSTICS O PHILLIP Final Result [employer] (CLIA #:[id number]) [address] [place] [address], from Last 3 Months or Most Recently Relevant to Health Maintenance Insurance [facility] DUAL COMPLETE HMO [facility] [address] [place] [address] [facility] [address] [place] [address] [facility] [address] [place] [address] Care Teams Supervisor Border Department Relationship Specialty Start Date End Date Stan Fletcher MD [address] [place] [phone] PCP - General Internal Medicine 08/20/18
--- OUTSIDE RECORDS SUMMARY | 2025-05-13 09:41 | XMS_ITS | Encounter Summary ---
Author Organization [employer] Address [address] [place] [address] 7 [place] [address] Care Team Providers Care Licensed And Certified Midwife Name Role Phone Stan Fletcher MD Primary Care Provider [phone] Reason for Visit * Reason Comments Med Refill Encounter Details Date Type Department Care Team ([facility] Contact Info) Description 02/23/2025 Refill [facility] [address] [place], [place] [phone] Stan Fletcher MD [address] [place] [address] Right sided sciatica Social History Tobacco Use [...] 10:15 AM EDT Clinical Support [facility] [address] [place] [address] documented as of this encounter Visit Diagnoses Diagnosis Right sided sciatica Sciatica documented in this encounter Additional Health Concerns Assessment Noted Time PHQ-9 Depression Total Score: 0 11/06/19 25 9:29 AM EDT documented as of this encounter Care Teams Licensed And Certified Midwife Relationship Specialty Start Date End Date Stan Fletcher MD [address] [place] [address] PCP - General Internal Medicine 08/20/18 documented as of this encounter
--- OUTSIDE RECORDS SUMMARY | 2025-05-13 09:41 | XMS_ITS | Encounter Summary ---
Author Organization [employer] Address [address] [facility] 7 [place] [address] Care Team Providers Care Lawnmower Repair Mechanic Name Role Phone Stan Fletcher MD Primary Care Provider [phone] Reason for Visit * Reason Onset Date Comments Medication Question 03/16/2025 Encounter Details Date Type Department Care Team ([facility] Contact Info) Description 03/16/2025 Telephone [facility] MED [facility] PEDS [address] [place], [place] [phone] Stan Fletcher MD [address] [place] [address] Medication Question Social History Tobacco Use Types [...] Pt stated it issmaller. Contact pt at [phone] (ASL) documented in this encounter Plan of Treatment Upcoming Encounters Date Type Department Care Team (Late st Contact Info) Description 05/15/2025 10:15 AM EDT Clinical Support [facility] [address] [place] [address] documented as of this encounter Visit Diagnoses Not on filedocumented in this encounter Additional Health Concerns Assessment Noted Time PHQ-9 Depression Total Score: 0 11/06/19 25 9:29 AM EDT documented as of this encounter Care Teams Lawnmower Repair Mechanic Relationship Specialty Start Date End Date Stan Fletcher MD [address] [place] [address] PCP - General Internal Medicine 08/20/18 documented as of this encounter
--- OUTSIDE RECORDS SUMMARY | 2025-05-13 09:41 | XMS_ITS | Encounter Summary ---
Author Organization [employer] Address [address] [facility] [address] [place] [address] Care Team Providers Care Gypsum Block Setter Name Role Phone Stan Fletcher MD Primary Care Provider [phone] Reason for Visit * Reason Onset Date Comments Nurse Triage 02/13/2025 Encounter Details Date Type Department Care Team ([facility] st Contact Info) Description 02/13/2025 Telephone [facility] MEDICINE [address] [place] [address] Stan Fletcher MD [address] [place], [place] [phone] Nurse Triage Social History Tobacco Use Types [...] 10:22 AM EDT Called pt. Via [phone] nurse office. Pt states that he was prescribed Aspirin 10mg every am a long time ago in the [place] and he stopped taking it in December [...] acuity questions The caller accepted this outcome. [phone] (Sign Language) documented in this encounter Plan of Treatment Upcoming Encounters Date Type Department Care Team (Late st Contact Info) Description 05/15/2025 10:15 AM EDT Clinical Support [facility] MED [facility] PEDS [address] [place] [address] documented as of this encounter Visit Diagnoses Not on filedocumented in this encounter Additional Health Concerns Assessment Noted Time PHQ-9 Depression Total Score: 0 11/06/19 25 9:29 AM EDT documented as of this encounter Care Teams Gypsum Block Setter Relationship Specialty Start Date End Date Stan Fletcher MD [address] [place] [address] PCP - General Internal Medicine 08/20/18 documented as of this encounter
--- OUTSIDE RECORDS SUMMARY | 2025-05-13 09:41 | XMS_ITS | Encounter Summary ---
Author Organization [employer] Address [address] [place] [address] 7 [place] [address] Care Team Providers Care Tobacco Drying Machine Operator Name Role Phone Stan Fletcher MD Primary Care Provider [phone] Encounter Details Date Type Department Care Team ([facility] Contact Info) Description 12/07/2022 Orders Only [facility] MED & PEDS [address] [place], [place] [phone] Stan Fletcher MD [address] [place] [address] Palpitations (Primary Dx) Social History Tobacco Use [...] Department Care Team ([facility] Contact Info) Description 05/15/2025 10:15 AM EDT Clinical Support [facility] MED & PEDS [address] [place] [address] documented as of this encounter Visit Diagnoses Diagnosis Palpitations- Primary documented in this encounter Care Teams Tobacco Drying Machine Operator Relationship Specialty Start Date End Date Stan Fletcher MD [address] [place] [address] PCP - General Internal Medicine 08/20/18 documented as of this encounter
--- OUTSIDE RECORDS SUMMARY | 2025-05-13 09:41 | XMS_ITS | Encounter Summary ---
Author Organization [employer] Address [address] [place] [address] Care Team Providers Care Certified Nurses Aide Name Role Phone Stan Fletcher MD Primary Care Provider [phone] Reason for Visit * Reason Comments Med Refill Encounter Details Date Type Department Care Team ([facility] Contact Info) Description 01/09/2023 Refill [facility] MED & PEDS [address] [place] [address] Stan Fletcher MD [address] [place] [address] Social History Tobacco Use Types Packs/Day Years [...] Upcoming Encounters Date Type Department Care Team ([facility] Contact Info) Description 05/15/2025 10:15 AM EDT Clinical Support [facility] MED & PEDS [address] [place] [address] documented as of this encounter Visit Diagnoses Not on filedocumented in this encounter Care Teams Certified Nurses Aide Relationship Specialty Start Date End Date Stan Fletcher MD [address] [place] [address] PCP - General Internal Medicine 08/20/18 documented as of this encounter
--- OUTSIDE RECORDS SUMMARY | 2025-05-13 09:41 | XMS_ITS | Encounter Summary ---
Author Organization [employer] Address [address] [place] [address] Care Team Providers Care Aix System Administrator Name Role Phone Stan Fletcher MD Primary Care Provider [phone] Reason for Referral * Consultation (Routine) - Canceled Specialty Diagnoses / Procedures Referred By Contivan t Referred To Contact Endocrinology Diagnoses Type 2 diabetes mellitus without complication, with long-term current use of insulin (CMS/HCC) Stan Fletcher MD [address] [place] [address] Phone: tel: fax: Referral ID Status Reason Start Date Expiration Date Visits Requested Visits Authorized [id number] Canceled Specialty Services Required 02/13/2025 02/13/2026 1 1 Encounter Details Date Type Department Care Team ([facility] Contact Info) Description 02/13/2025 Orders Only [facility] MED & PEDS [address] [place] [address] Stan Fletcher MD [address] [place] [address] Type 2 diabetes mellitus without complication, with [...] 10:15 AM EDT Clinical Support [facility] MED & PEDS [address] [place] [address] Scheduled Referrals Name Type Priority Associated Diagnoses [...] documented as of this encounter Care Teams Aix System Administrator Relationship Specialty Start Date End Date Stan Fletcher MD [address] [place] [address] PCP - General Internal Medicine 08/20/18 documented as of this encounter
== END 2025-05-12 08:37 | disposition home or self-care (01) ==
LOC: HO.HOSX 08:36
PROVIDERS: Visit Provider Physician Assistant
DX: Z47.89 Encounter for other orthopedic aftercare (principal); M48.062 Spinal stenosis, lumbar region with neurogenic claudication; Z98.1 Arthrodesis status
CPT/HCPCS: 72110; 99212

== ENCOUNTER 2025-05-12 14:37 | Outpatient (AMB) | payer MEDICARE, MEDICAID, SELFPAY ==
--- OUTSIDE RECORDS SUMMARY | 2025-05-07 14:45 | XMS_ITS | Encounter Summary ---
Author Organization [employer] Address [address] [place] [address] 7 [place] [address] Care Team Providers Care Rabies Inspector Name Role Phone Stan Fletcher MD Primary Care Provider [phone] Reason for Visit * Reason Comments Hypertension Diabetes Diarrhea Encounter Details Date Type Department Care Team ([facility] Contact Info) Description 05/07/2025 2:45 PM EDT Office Visit [facility] MED & PEDS [address] [place], [place] [phone] Stan Fletcher MD [address] [place] [address] Diarrhea, unspecified type (Primary Dx); Primary hypertension; Type 2 diabetes mellitus without complication, with long-term current use of insulin ([facility]); Transaminitis; Irritant contact dermatitis due to other [...] Progress Notes * Stan Fletcher MD - 05/07/2025 2:45 PM EDT [...] people in the household. Nobody is sick. Rehabilitation Engineer Eleni # [id number] Patient is also complaining of difficulty staying [...] (one) time each day. Continuous Blood Gluc Hand Expansion Envelope Maker (FreeStyle Cathryn 2 [place]) device To use daily 1 each 0 Continuous Blood Gluc Sensor (FreeStyle Cathryn 2 Sensor) misc To use daily 2 each 11 Continuous Glucose Hand Expansion Envelope Maker (FreeStyle Cathryn 2 [place]) device Scan sensor every 8 hours 1 each 0 Continuous Glucose Sensor (FreeStyle Cathryn 2 Sensor) [facility] Apply 1 sensor [...] A MEAL 270 tablet 3 glucose blood (Recogniauch Ultra) test strip To use 2 times [...] per day. 90 tablet 3 TechLite Pen Farrell 32G X 6 MM misc USE FOUR [...] Care Team (Late st Contact Info) Description 05/15/2025 10:15 AM EDT Clinical Support [facility] [address] [place] [address] Scheduled Orders Name Type Priority Associated Diagnoses Orde r Schedule Stool - Gastrointestinal panel Microbiology Routine Diarrhea, unspecified type Expected: 05/07/2025 (Approximate), Expires: 05/07/2026 documented as of this encounter Procedures Procedure Name Priority Date/Time Associated Diagnosis Comments HEPATITIS PANEL, GENERAL Routine 05/07/2025 3:25 PM EDT Diarrhea, unspecified type Transaminitis documented in this encounter Results * Hepatitis Panel, General (05/07/2025 3:25 PM EDT) Hepatitis A IgM Nonreactive Nonreactive [facility] Comment:IgM antibodies to AVERY V not detected; does not exclude earlyacute or recovered HAV infection. ~Hepatitis B Surface Antibody NONREACTIVE Nonreactive [facility] Comment:Nonreactive: < 8.00 mIU/mL Hepatitis B Core Antibody Nonreactive Nonreactive [facility] Hepatitis C Antibody Nonreactive Nonreactive [facility] Comment:Antibodies to HCV no t detected; does not exclude early acuteHCV infection. Hepatitis B Surface Ag Negative Negative [facility] Blood Venous blood specimen / Unknown 05/07/2025 3:25 PM EDT 05/07/2025 5:39 PM EDT Stan Fletcher MD LAB BLOOD ORDERABLES Final Result [facility] [address] [place] [address] [phone] documented in this encounter Visit Diagnoses Diagnosis Diarrhea, unspecified type- Primary Primary hypertension Unspecified essential hypertension Type 2 diabetes mellitus without complication, with long-term current use of insulin (CMS/HCC) Transaminitis Nonspecific elevation of levels of transaminase or lactic acid dehydrogenase (LDH) Irritant contact dermatitis due to other agents Primary insomnia Persistent disorder of initiating or maintaining sleep documented in this encounter Additional Health Concerns Assessment Noted Time PHQ-9 Depression Total Score: 0 11/06/19 25 9:29 AM EDT documented as of this encounter Care Teams Rabies Inspector Relationship Specialty Start Date End Date Stan Fletcher MD [address] [place] [address] PCP - General Internal Medicine 08/20/18 documented as of this encounter
--- NOTE | 2025-05-12 14:44 | HO.SPINEOV ---
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 Escobar is here today for his 2nd post op. Transmission Builder Required: Yes Transmission Builder Name: ASL Tablet Allergies bee pollen (BEE STINGS) Allergy (Severe, Verified 05/12/25 14:46) SWELLING and facial swelling Sulfa (Sulfonamide Antibiotics) (SULFA (SULFONAMIDE ANTIBIOTICS)) Allergy (Severe, Verified 05/12/25 14:46) swelling, hives acetaminophen (From Percocet) Allergy (Verified 05/12/25 14:46) Palpitations orange juice Allergy (Verified 05/12/25 14:46) Blister oxycodone (From Percocet) Allergy (Verified 05/12/25 14:46) Palpitations prednisone Allergy (Verified 05/12/25 14:46) heart palpitation, raises glucose levels simvastatin Allergy (Verified 05/12/25 14:46) Hives adhesive Adverse Reaction (Intermediate, Verified 05/12/25 14:46) Rash, burning, from EKG stickers Assessment & Plan Assessment & Plan (1) S/P lumbar fusion: Code(s): Z98.1 - Arthrodesis status Category: Surgical Plan Transmission Builder [id number] utilized for this visit Nick is a pleasant 64-year-old male who comes in today for his 2nd postoperative visit after having a L3-[address] Martinez a couple of months ago. He reports that overall since his surgery he has done very well. He does occasionally still have some low back pain and some pains in his right lower extremity, but feels that overall it is very much so improved compared to the pain he was in preoperatively. He has been able to complete the bulk of his ADLs without much issue, and states that he has been observing the continued restrictions regarding bending lifting/twisting. He did bring in 3 sets of paperwork for unemployment, disability, and PFMLA. Some of this paperwork has already been completed by BRANDON Meyers, so I will defer to him for this. We reviewed his x-ray imaging during this visit which shows stable placement of the surgical construct in no changes from fluoroscopy. No new neurological deficits. The patient ambulates well and rises from seated position without much difficulty. There is no need for continued routine follow up with Nick. Pasquale Martinez MD,PhD [facility] Orders: Orders XR lumbar spine 4V min Today M48.062 - Spinal stenosis, lumbar region with neurogenic claudication Coding Level of Care Code Global (34776) Diagnoses S/P lumbar fusion Z98.1
--- OUTSIDE RECORDS SUMMARY | 2025-05-12 17:49 | XMS_ITS | Encounter Summary ---
Author Organization [employer] Address [address] [place] [address] 7 [place] [address] Care Team Providers Care Supervisor Instrument Repair Name Role Phone Stan Fletcher MD Primary Care Provider [phone] Reason for Visit * Reason Comments Med Refill Encounter Details Date Type Department Care Team ([facility] Contact Info) Description 02/23/2025 Refill [facility] CHC MED & PEDS [address] [place], [place] [phone] Stan Fletcher MD [address] [place] [address] Right sided sciatica Social History Tobacco Use [...] Description 05/15/2025 10:15 AM EDT Clinical Support [facility] CHC MED & PEDS [address] [place] [address] documented as of this encounter Visit Diagnoses Diagnosis Right sided sciatica Sciatica documented in this encounter Additional Health Concerns Assessment Noted Time PHQ-9 Depression Total Score: 0 11/06/19 25 9:29 AM EDT documented as of this encounter Care Teams Supervisor Instrument Repair Relationship Specialty Start Date End Date Stan Fletcher MD [address] [place] [address] PCP - General Internal Medicine 08/20/18 documented as of this encounter
--- OUTSIDE RECORDS SUMMARY | 2025-05-12 17:49 | XMS_ITS | Encounter Summary ---
Author Organization [employer] Address [address] [facility] 7t [place] [address] Care Team Providers Care Medical Office Administrator Name Role Phone Stan Fletcher MD Primary Care Provider [phone] Encounter Details Date Type Department Care Team ([facility] Contact Info) Description 05/12/2025 Telephone [facility] MEDICINE [address] [place] [address] Stan Fletcher MD [address] [place] [address] Social History Tobacco Use Types Packs/Day Years [...] encounter Miscellaneous Notes * Telephone Encounter - Shelli Linder - 05/12/2025 3:11 PM EDT Pharmacy [facility] attempted outreach call on 05/12/25 for CDTM - Diabetes appointment; however, unable to reach patient. LVM for patient to contact Shelli Linder at [phone]. documented in this encounter Plan of Treatment Upcoming Encounters Date Type Department Care Team ([facility] st Contact Info) Description 05/15/2025 10:15 AM EDT Clinical Support [facility] CHC MED & PEDS [address] [place] [address] documented as of this encounter Visit Diagnoses Not on filedocumented in this encounter Additional Health Concerns Assessment Noted Time PHQ-9 Depression Total Score: 0 11/06/19 25 9:29 AM EDT documented as of this encounter Care Teams Medical Office Administrator Relationship Specialty Start Date End Date Stan Fletcher MD [address] [place] [address] PCP - General Internal Medicine 08/20/18 documented as of this encounter
--- OUTSIDE RECORDS SUMMARY | 2025-05-12 17:49 | XMS_ITS | Encounter Summary ---
Author Organization [employer] Address [address] [place] [address] Care Team Providers Care Excavation Laborer Name Role Phone Stan Fletcher MD Primary Care Provider [phone] Reason for Referral * Imaging (Routine) - Authorized Specialty Diagnoses / Procedures Referred By Contac t Referred To Contact Radiology Diagnoses Decreased GFR Procedures US RENAL BI Stan Fletcher MD [address] [place] [address] Phone: tel: fax: [address] Phone: tel: fax: Referral ID Status Reason Start Date Expiration Date V isits Requested Visits Authorized [id number] Authorized 05/07/2025 05/07/2026 1 1 * Imaging (Routine) - Authorized Specialty Diagnoses / Procedures Referred By Contac t Referred To Contact Radiology Diagnoses Transaminitis Procedures US Abdomen Comp w elastography Stan Fletcher MD [address] [place] [address] Phone: tel: fax: [address] Phone: tel: fax: Referral ID Status Reason Start Date Expiration Date V isits Requested Visits Authorized [id number] Authorized 05/06/2025 05/06/2026 1 1 Encounter Details Date Type Department Care Team ([facility] st Contact Info) Description 05/05/2025 Orders Only [facility] CHC MED & PEDS [address] [place] [address] Stan Fletcher MD [address] [place] [address] Transaminitis (Primary Dx); Decreased GFR Social History [...] Description 05/15/2025 10:15 AM EDT Clinical Support [facility] CHC MED & PEDS [address] [place] [address] Scheduled Orders Name Type Priority Associated Diagnoses Orde r Schedule Hepatitis B Surface Antibody, Qualitative Lab Routine Transaminitis Expected: 05/06/2025 (Approximate), Expires: 05/06/2026 US Abdomen Comp w elastography Imaging Routine Transaminitis Expected: 05/06/2025, Expires: 05/06/2026 Smooth Muscle Antibody with Reflex to Titer Lab Routine Transaminitis Expected: 05/06/2025 (Approximate), Expires: 05/06/2026 Alpha 1 Antitrypsin Lab Routine Transaminitis Expected: 05/06/2025 (Approximate), Expires: 05/06/2026 US RENAL BI Imaging Routine Decreased GFR Expected: 05/07/2025 (Approximate), Expires: 05/06/2026 Hereditary Hemochromatosis DNA Mutation Analysis Lab Routine Transaminitis Expected: 05/07/2025 (Approximate), Expires: 05/07/2026 documented as of this encounter Procedures Procedure Name Priority Date/Time Associated Diagnosis Comments IRON AND TOTAL IRON BINDING CAPACITY Routine 05/07/2025 3:25 PM EDT Transaminitis PROTHROMBIN TIME-INR Routine 05/07/2025 3:25 PM EDT Transaminitis IMMUNOGLOBULINS, QUANTITATIVE, IGA, IGG, IGM Routine 05/07/2025 3:25 PM EDT Transaminitis FERRITIN Routine 05/07/2025 3:25 PM EDT Transaminitis documented in this encounter Results * (ABNORMAL) Iron And Total Iron Binding Capacity (05/07/2025 3:25 PM EDT) Iron 161(H) 45 - 160 mcg/dL [facility] Total Iron Binding Capacity 273 228 - 428 mcg/dL [facility] Percent Iron Saturation 59(H) 15 - 50 % [facility] Unsaturated Iron Binding 112 ug/dL [facility] Blood Venous blood specimen / Unknown 05/07/2025 3:25 PM EDT 05/07/2025 5:39 PM EDT us Stan Fletcher MD LAB BLOOD ORDERABLES Final Result Performing Organization Address [facility]/ZIP Co de Phone Number [facility] [address] [place] [phone] * (ABNORMAL) Ferritin (05/07/2025 3:25 PM EDT) Ferritin 619(H) 20 - 250 ng/mL [facility] Blood Venous blood specimen / Unknown 05/07/2025 3:25 PM EDT 05/07/2025 5:39 PM EDT us Stan Fletcher MD LAB BLOOD ORDERABLES Final Result Performing Organization Address [facility] de Phone Number [facility] [address] [place] [phone] * (ABNORMAL) Prothrombin Time-INR (05/07/2025 3:25 PM EDT) Prothrombin Time 14.0(H) 10.9 - 12.4 SEC [facility] INTERNATIONAL NORM RATIO 1.2(H) 0.9 - 1.1 [facility] Comment:INTERNATIONAL NORMAL IZED RATIO (INR) REFERENCE RANGES Reference RangeFor patients not on anticoagulant therapy: 0.9 - 1.1INR ranges for oral anticoagulanttherapy:For prevention and treatment of venous thrombosis and pulmonary embolism: 2.0 - 3.0For acute myocardial infarction with aspirin therapy: 2.0 - 3.0For acute myocardial infarction without aspirin therapy: 3.0 - 4.0For patients with mechanical prosthetic heart valves: 2.5 - 3.5 Blood Venous blood specimen / Unknown 05/07/2025 3:25 PM EDT 05/07/2025 5:35 PM EDT us Stan Fletcher MD LAB BLOOD ORDERABLES Final Result Performing Organization Address [facility] Co de Phone Number [facility] [address] [place] [phone] * Immunoglobulins, Quantitative, IgA, IgG, IgM (05/07/2025 3:25 PM EDT) IMMUNOGLOBULIN G 982 600 - 1540 mg/dL [facility] IMMUNOGLOBULIN A 142 70 - 320 mg/dL [facility] Immunoglobulin M 86 50 - 300 mg/dL [facility] Comment:THIS TEST WAS PERFOR MED AT:[facility] [place] [phone] MANRIQUEZ MD Blood Venous blood specimen / Unknown 05/07/2025 3:25 PM EDT 05/07/2025 5:39 PM EDT us Stan Fletcher MD LAB BLOOD ORDERABLES Final Result Performing Organization Address [facility] Co de Phone Number [facility] [address] [place] [phone] documented in this encounter Visit Diagnoses Diagnosis Transaminitis- Primary Nonspecific elevation of levels of transaminase or lactic acid dehydrogenase (LDH) Decreased GFR documented in this encounter Additional Health Concerns Assessment Noted Time PHQ-9 Depression Total Score: 0 11/06/19 25 9:29 AM EDT documented as of this encounter Care Teams Excavation Laborer Relationship Specialty Start Date End Date Stan Fletcher MD [address] [place] [phone] PCP - General Internal Medicine 08/20/18 documented as of this encounter
--- OUTSIDE RECORDS SUMMARY | 2025-05-12 17:49 | XMS_ITS | Encounter Summary ---
Author Organization [employer] Address [address] [place] [address] Care Team Providers Care Gunner'S Mate G Name Role Phone Stan Fletcher MD Primary Care Provider [phone] Encounter Details Date Type Department Care Team (Latest Contact Info) Description 05/12/2025 Travel Social History Tobacco Use Types Packs/Day [...] Upcoming Encounters Date Type Department Care Team ([facility] st Contact Info) Description 05/15/2025 10:15 AM EDT Clinical Support [facility] MED & PEDS [address] [place] [address] documented as of this encounter Visit Diagnoses Not on filedocumented in this encounter Additional Health Concerns Assessment Noted Time PHQ-9 Depression Total Score: 0 11/06/19 25 9:29 AM EDT documented as of this encounter Care Teams Gunner'S Mate G Relationship Specialty Start Date End Date Stan Fletcher MD [address] [place] [address] PCP - General Internal Medicine 08/20/18 documented as of this encounter
--- OUTSIDE RECORDS SUMMARY | 2025-05-12 17:49 | XMS_ITS | Clinical Summary ---
Author Organization [employer] Address [address] [facility] 7 [place] [address] Care Team Providers Care Acid Etch Operator Name Role Phone Stan Fletcher MD Primary Care Provider [phone] Allergies Active Allergy Reactions Criticality Noted Date [...] mL 11 2022 Active Continuous Blood Gluc Student Development Coordinator (FreeStyle Cathryn 2 [place]) deviceIndications:Type 2 diabetes mellitus without complication, with long-term current use of insulin ([facility]) To use daily 1 each 2022 Active Continuous Blood Gluc Sensor (FreeStyle Cathryn 2 Sensor) miscIndications:Type 2 diabetes mellitus without complication, with long-term current use of insulin ([facility]) To use daily 2 each 11 2022 [...] hyperglycemia, with long-term current use of insulin ([facility]) INJECT 12 UNITS SUBCUTANEOUSLY THREE TIMES DAILY [...] complication, with long-term current use of insulin ([facility]) Inject 12 Units as directed 3 times daily. 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 Do not crush or chew. 60 capsule 11 2023 Active Continuous Glucose Student Development Coordinator (FreeStyle Cathryn 2 [place]) deviceIndications:Type 2 diabetes mellitus without complication, with long-term current use of insulin ([facility]) Scan sensor every 8 hours 1 each 2023 Active Continuous Glucose Sensor (FreeStyle Cathryn 2 Sensor) miscIndications:Type 2 diabetes mellitus without complication, with long-term current use of insulin ([facility]) Apply 1 sensor every 14 days 2 each 2023 Active atorvastatin (Lipitor) 40 MG tabletIndications:Pure hypercholesterolemia TAKE ONE TABLET EVERY MORNING 30 tablet 11 2023 Active Lantus SoloStar 100 UNIT/ML pen INJECT 60 UNITS SUBCUTANEOUSLY ONCE DAILY 30 mL 2023 Active TechLite Pen [place] 32G X 6 MM misc USE FOUR [...] complication, with long-term current use of insulin ([facility]) Take 1 tablet (100 mg) by mouth Once per day. 90 tablet 3 2024 Active metoprolol succinate XL (Toprol XL) 25 MG 24 hr tabletIndications:Prim janeth hypertension Take 1 tablet (25 mg) by mouth Once per day. Do not crush or chew. 30 tablet 04/22 Active glucose blood (OneTouch Ultra) test stripIndications:Type 2 diabetes mellitus without complication, with long-term current use of insulin ([facility]) To use 2 times a day 100 [...] Reorder (will not trigger notification to Pharmacy)) atenolol (Tenormin) 25 MG tabletIndications:Prim janeth hypertension [...] Encounters Date Type Department Care Team Description 05/12/2025 Telephone [facility] [address] [place] [phone] Stan Fletcher MD 05/12/2025 Travel 05/08/2025 Telephone [facility] [address] [place] [address] Stan Fletcher MD Appointment Request 05/08/2025 Results Follow-Up [facility] [address] [place] [address] Gloria Tyson, CAPRICE Prothrombin Time-INR, Ferritin, Iron And Total Iron Binding Capacity 05/07/2025 2:45 PM EDT Office Visit [facility] [address] [place] [address] Stan Fletcher MD Diarrhea, unspecified type (Primary Dx); Primary hypertension; Type 2 diabetes mellitus without complication, with long-term current use of insulin ([facility]); Transaminitis; Irritant contact dermatitis due to other agents; Primary insomnia 05/07/2025 Results Follow-Up [facility] [address] [place] [phone] Cheryl Melendez RN Glucose, Whole Blood, Basic Metabolic Panel, AST, ALT 05/07/2025 Travel 05/07/2025 Telephone [facility] [address] [place] [address] Stan Fletcher MD Nurse Triage 05/06/2025 Telephone [facility] [address] [place] [address] Stan Mojica MD Call Back Request; fyi 05/05/2025 Orders Only [facility] [address] [place] [address] Stan Mojica MD Transaminitis (Primary Dx); Decreased GFR 05/05/2025 Orders Only GENERIC EXTERNAL DATA DEPARTMENT Provider, Generic External Data 04/29/2025 Telephone [facility] [address] [place] [address] Stan Fletcher MD Medication Question 04/22/2025 2:15 PM EDT Office Visit [facility] [address] [place] [address] Stan Fletcher MD Type 2 diabetes mellitus without complication, with long-term current use of insulin ([facility]) (Primary Dx); Primary hypertension; Right hip pain 04/22/2025 Travel 04/21/2025 Telephone [facility] [address] [place] [address] Stan Fletcher MD Chart Prep 04/21/[address] [address] Stan Fletcher MD Nurse Triage 03/30/2025 Telephone [facility] [address] [place] [address] Stan Fletcher MD Med Refill 03/19/[address] [address] Stan Fletcher MD Appointment Request 03/16/2025 Telephone [facility] [address] [place] [address] Stan Fletcher MD Medication Question 03/04/2025 Telephone [facility] [address] [place] [address] Stan Fletcher MD Medication Question 03/03/[address] [address] Stan Fletcher MD Nurse Triage 03/02/2025 Refill [facility] [address] [place] [address] Stan Fletcher MD Right sided sciatica 02/25/2025 Telephone [facility] [address] [place] [address] Stan Fletcher MD Referral 02/24/[address] [address] Stan Fletcher MD Appointment Request 02/23/2025 Telephone [facility] [address] [place] [address] Stan Fletcher MD Medication Question 02/23/2025 Refill [facility] [address] [place] [address] Stan Fletcher MD Right sided sciatica 02/13/2025 Orders Only [facility] [address] [place] [address] Stan Fletcher MD Type 2 diabetes mellitus without complication, with long-term current use of insulin (CMS/HCC) (Primary Dx) 02/13/2025 Telephone [facility] [address] [place] [address] Stan Fletcher MD Nurse Triage 02/12/2025 Telephone [facility] [address] [place] [address] Stan Fletcher MD Medication Question 02/12/2025 Refill [facility] [address] [place] [address] Stan Fletcher MD 02/11/2025 Results Follow-Up [facility] [address] [place] [address] Stan Fletcher MD POCT Glucose, Hepatitis C Antibody with Reflex to HCV, RNA, Quantitative, Real-Time PCR 02/11/2025 Results Follow-Up [facility] [address] [place] [address] Rupa Rain, CAPRICE Basic Metabolic Panel 02/10/2025 10:00 AM EDT Office Visit [facility] [address] [place] [phone] Stan Fletcher MD Primary hypertension (Primary Dx); [...] 05/07/2025 2:51 PM EDT Plan of Treatment Upcoming Encounters Date Type Department Care Team (Late st Contact Info) Description 05/15/2025 10:15 AM EDT Clinical Support [facility] [address] [place] [address] Health Maintenance Due Date Last Done Comments CT Colonography 1962 Colonoscopy 1962 FIT 1962 Sigmoidoscopy 1962 FOBT 12/05/2024 12/06/2023 DTaP/Tdap/Td Vaccines (2 - Td or Tdap) 10/19/2025 10/20/2015 Diabetes: Hemoglobin A1C 10/20/2025 025, 12/22/2024, 09/11/2024, Additional history exists Alcohol/Substance Use Screening 11/05/2025 11/05/2024 Depression Screening 11/05/2025 11/05/2024, 11/06/19 Diabetes: Urine Protein Screening 11/05/2025 11/05/2024 SDOH Screening 11/05/2025 11/05/2024 Eye Exam 11/11/2025 11/11/2024, 10/20/2022 Lipid Panel 11/12/2025 11/12/2024 Diabetes: Foot Exam 02/10/2026 02/10/2025, Tobacco Screening 05/07/2026 05/07/2025 Disability Screening 05/12/2026 05/12/2025 Colorectal Cancer Screening 12/05/2026 FIT DNA/Cologuard 12/05/2026 12/06/2023 Zoster Vaccines Completed 01/24/2022, 11/23/2021 Pneumococcal Vaccine: 50+ Years Completed 07/26/2023, 06/03/2019 RSV Patients and Patients Aged 60 years or older Completed 04/25/2024 Influenza Vaccine Completed 04/05/2025, , 07/19/2023, Additional history exists COVID-19 Vaccine Completed 05/02/2025, 11/2023, 06/10/2022, Additional history exists Hepatitis C Screening Completed 05/07/2025, 025 HIB Vaccines Aged Out No longer eligi [...] 3:25 PM EDT Diarrhea, unspecified type Transaminitis IRON AND TOTAL IRON BINDING CAPACITY Routine 05/07/2025 3:25 PM EDT Transaminitis FERRITIN Routine 05/07/2025 3:25 PM EDT Transaminitis PROTHROMBIN TIME-INR Routine 05/07/2025 3:25 PM EDT Transaminitis IMMUNOGLOBULINS, QUANTITATIVE, IGA, IGG, IGM Routine 05/07/2025 3:25 PM EDT Transaminitis ALT Routine 05/05/2025 11:40 AM EDT AST [...] Recently Relevant to Health Maintenance Results * Hepatitis Panel, General (05/07/2025 3:25 PM EDT) Hepatitis A IgM Nonreactive Nonreactive [facility] Comment:IgM antibodies to AVERY V not detected; does not exclude earlyacute or recovered HAV infection. ~Hepatitis B Surface Antibody NONREACTIVE Nonreactive [facility] Comment:Nonreactive: < 8.00 mIU/mL Hepatitis B Core Antibody Nonreactive Nonreactive [facility] Hepatitis C Antibody Nonreactive Nonreactive [facility] Comment:Antibodies to HCV no t detected; does not exclude early acuteHCV infection. Hepatitis B Surface Ag Negative Negative [facility] Blood Venous blood specimen / Unknown 05/07/2025 3:25 PM EDT 05/07/2025 5:39 PM EDT us Stan Fletcher MD LAB BLOOD ORDERABLES Final Result Performing Organization Address City/[facility]/ZIP Co de Phone Number [facility] [address] [place] [address] [phone] * (ABNORMAL) Iron And Total Iron Binding Capacity (05/07/2025 3:25 PM EDT) Iron 161(H) 45 - 160 mcg/dL [facility] Total Iron Binding Capacity 273 228 - 428 mcg/dL [facility] Percent Iron Saturation 59(H) 15 - 50 % [facility] Unsaturated Iron Binding 112 ug/dL [facility] Blood Venous blood specimen / Unknown 05/07/2025 3:25 PM EDT 05/07/2025 5:39 PM EDT us Stan Fletcher MD LAB BLOOD ORDERABLES Final Result Performing Organization Address [facility]/ZIP Co de Phone Number [facility] [address] [place] [phone] * (ABNORMAL) Prothrombin Time-INR (05/07/2025 3:25 PM EDT) Prothrombin Time 14.0(H) 10.9 - 12.4 SEC [facility] INTERNATIONAL NORM RATIO 1.2(H) 0.9 - 1.1 [facility] Comment:INTERNATIONAL NORMAL IZED RATIO (INR) [...] BLOOD ORDERABLES Final Result Performing Organization Address [facility] Co de Phone Number [facility] [address] [place] [phone] * Immunoglobulins, Quantitative, IgA, IgG, IgM (05/07/2025 3:25 PM EDT) Pathologist [facility] IMMUNOGLOBULIN G 982 600 - 1540 mg/dL [facility] IMMUNOGLOBULIN A 142 70 - 320 mg/dL [facility] Immunoglobulin M 86 50 - 300 mg/dL [facility] Comment:THIS TEST WAS PERFOR MED AT:[employer] [address] [phone] MANRIQUEZ MD Blood Venous blood specimen / Unknown 05/07/2025 3:25 PM EDT 05/07/2025 5:39 PM EDT Stan Fletcher MD LAB BLOOD ORDERABLES Final Result Performing Organization Address [facility]/ZIP Co de Phone Number [facility] [address] [place] [phone] * (ABNORMAL) Ferritin (05/07/2025 3:25 PM EDT) Ferritin 619(H) 20 - 250 ng/mL [facility] Blood Venous blood specimen / Unknown 05/07/2025 3:25 PM EDT 05/07/2025 5:39 PM EDT us Stan Fletcher MD LAB BLOOD ORDERABLES Final Result Performing Organization Address [facility]/ZIP Co de Phone Number [facility] [address] [place] [phone] * (ABNORMAL) ALT (05/05/2025 11:40 AM EDT) Alanine Aminotransferase 72(H) 0 - 40 U/L [facility] 05/05/2025 11:4 0 AM EDT 05/05/2025 11:40 AM EDT us Generic External Data Provider LAB BLOOD ORDERAB LES Final Result Performing Organization Address [facility] Co de Phone Number [facility] [address] [place] [phone] * (ABNORMAL) AST (05/05/2025 11:40 AM EDT) Pathologist [facility] Aspartate Amino Transferase 49(H) 5 - 37 U/L [facility] 05/05/2025 11:4 0 AM EDT 05/05/2025 11:40 AM EDT us Generic External Data Provider LAB BLOOD ORDERAB LES Final Result Performing Organization Address [facility] Co de Phone Number [facility] [address] [place] [phone] * (ABNORMAL) Basic Metabolic Panel (05/05/2025 11:40 AM EDT) Only the most recent of2 resultswithin the time period is included. Sodium 142 135 - 145 mmol/L [facility] Potassium 4.4 3.3 - 5.1 mmol/L [facility] Chloride 108 96 - 108 mmol/L [facility] Carbon Dioxide 27 22 - 29 mmol/L [facility] Anion Gap 11(L) 12 - 20 [facility] Urea Nitrogen (BUN) 32(H) 9 - 16 mg/dL [facility] Creatinine, Serum 1.41(H) 0.5 - 1.4 mg/dL [facility] Estimated Glomerular Filt Rate 51 [facility] Comment:Chronic Kidney Disea se: Estimated GFR < 60 mL/min/[id number] Kidney Disease: Estimated GFR < 15 mL/min/1.73m2 Glucose 100 60 - 115 mg/dL [facility] Calcium 9.4 8.4 - 10.2 mg/dL [facility] 05/05/2025 11:4 0 AM EDT 05/05/2025 11:40 AM EDT us Generic External Data Provider LAB BLOOD ORDERAB LES Final Result Performing Organization Address [facility] Co de Phone Number [facility] [address] [place] [phone] * Glucose, Whole Blood (05/05/2025 10:14 AM EDT) Glucose, Whole Blood 78 60 - 115 mg/dL [facility] Comment:METER #: [id number] Testing performed in the Endocrinology Department [address] , [address], [facility]. 05/05/2025 10:1 4 AM EDT 05/05/2025 10:17 AM EDT us Generic External Data Provider LAB BLOOD ORDERAB LES Final Result Performing Organization Address [facility] Co de Phone Number [facility] [address] [place] [phone] * (ABNORMAL) POCT HGB A1C (04/22/2025 4:07 PM EDT) [facility] Hemoglobin A1C 6.7(A) 4.0 - 5.7 % QC Media Lot # [id number] Lot# Expiration Date Blood 04/22/2025 4:07 PM EDT us Stan Fletcher MD POINT OF CARE TEST ENTER/ED IT ORDERABLES Final Result * (ABNORMAL) POCT Glucose (04/22/2025 4:07 PM EDT) Only the most recent of2 resultswithin the time period is included. [facility] Glucose Blood, POC 248(A) 60 - 200 mg/dL [employer] Lot # [id number] Lot# Expiration Date Comment:random Blood Capillary blood specimen / Unknown 04/22/2025 4:07 PM EDT us Stan Fletcher MD POINT OF CARE TEST ENTER/ED IT ORDERABLES Final Result * Hepatitis C Antibody with Reflex to HCV, RNA, Quantitative, Real-Time PCR (02/10/2025 10:40 AM EDT) [facility] Hepatitis C Antibody Nonreactive Nonreactive [facility] Comment:Antibodies to HCV no t detected; does not exclude early acuteHCV infection. Blood Venous blood specimen / Unknown 02/10/2025 10:40 AM EDT 02/10/2025 1:58 PM EDT Stan Fletcher MD LAB BLOOD ORDERABLES Final Result [facility] [address] [place] [phone] * (ABNORMAL) Lipid Panel, Standard (11/12/2024 11:34 AM EDT) Triglycerides 176(H) <150 mg/dL [facility] Comment:Desirable Triglyceri de: less than 150 mg/dLBorderline High Triglyceride 150-199 mg/dLHigh Triglyceride: 200-499 mg/dLVery High Triglyceride: greater than or equal to 5OO mg/dL Cholesterol 116 <200 mg/dL [facility] Comment:Desirable Cholestero l: less than 200 mg/dLBorderline High Cholesterol: 200-239 mg/dLHigh Cholesterol: greater than 239 mg/dL LDL Cholesterol Calculated 49 <100 mg/dL [facility] Comment:Desirable LDL: less than 100 mg/dLNear Optimal/Above Optimal LDL: 110- 129 mg/dLBorderline High LDL: 130-159 mg/dLHigh LDL: 160-189 mg/dLVery High LDL: greater than or equal to 190 mg/dL HDL Cholesterol 32(L) >40 mg/dL [facility] Comment:Desirable HDL: great er than 40 mg/dL Note: This HDL assay may give artificially low results in patients with liver disease. Blood Venous blood specimen / Unknown 11/12/2024 11:34 AM EDT 11/12/2024 2:15 PM EDT Stan Fletcher MD LAB BLOOD ORDERABLES Final Result [facility] [address] [place] [phone] * Diabetes Eye Exam (11/11/2024 4:01 PM EDT) Historical Provider HEALTH MAINTENANCE Final Result * Albumin, Random Urine W/Creatinine (11/05/2024 10:17 AM EDT) Creatinine, Urine 98.24 mg/dL [facility] Microalbumin Urine 20.0 mg/L [facility] Microalbum Creatinine Ratio Ur 20.3 <30 ug/mg cr [facility] Comment:Albumin/Creatinine R atio Reference Ranges: Normal: < 30 ug/mg creatinine Microalbuminuria: 30 - 300 ug/mg creatinineClinical Albuminuria: > 300 ug/mg creatinine Urine (Urine, Random) 11/05/2024 10:17 AM EDT 11/05/2024 2:07 PM EDT us Stan Fletcher MD LAB URINE ORDERABLES Final Result [facility] [address] [place] [phone] * (ABNORMAL) Cologuard?? colon cancer screening (12/06/2023 7:58 AM EDT) Cologuard Result Positive( A) Negative 12/13/2023 5:48 PM EDT [employer] (CLIA #:[id number]) Comment: POSITIVE TEST RESULT. A positive Cologuard [...] (Saritha Otto al, N Engl J Med 2014;370(14):1433-1007.) Cologuard may produce a false negative or false positive result (no colorectal cancer or precancerous polyp present at colonoscopy follow up). A negative Cologuard test result does not guarantee the absence of CRC or advanced adenoma (pre-cancer). The current Cologuard screening interval is every 3 years. ([employer] [employer] and U.S. Multi-Society Task Force). Cologuard performance data in a 10,000 patient pivotal study using colonoscopy as the reference method can be accessed at the following location: www.[employer]/results. Additional description of the Cologuard test process, warnings and precautions can be found at www.cologuard.com. Stool specimen (specimen) Rectal contents / Unknown 12/06/2023 7:58 AM EDT 12/07/2023 10:55 AM EDT Stan Fletcher MD LAB MOLECULAR DIAGNOSTICS O PHILLIP Final Result [employer] [facility] (CLIA #:[id number]) [address] [place] [address], from Last 3 Months or Most Recently Relevant to Health Maintenance Insurance [facility] DUAL COMPLETE HMO [facility] [address] [place] [address] [facility] [address] [place] [address] [facility] [address] [place] [address] Care Teams Acid Etch Operator Relationship Specialty Start Date End Date Stan Fletcher MD [address] [place] [phone] PCP - General Internal Medicine 08/20/18
--- OUTSIDE RECORDS SUMMARY | 2025-05-12 17:49 | XMS_ITS | Encounter Summary ---
Author Organization [employer] Address [address] [facility] [address] [place] [address] Care Team Providers Care Eyelet Cutter Name Role Phone Stan Fletcher MD Primary Care Provider [phone] Encounter Details Date Type Department Care Team ([facility] Contact Info) Description 05/07/2025 Results Follow-Up [facility] [address] [place], [place] [phone] Cheryl Melendez RN Glucose, Whole Blood, Basic [...] Description 05/15/2025 10:15 AM EDT Clinical Support [facility] [address] [place] [address] documented as of this encounter Visit Diagnoses Not on filedocumented in this encounter Additional Health Concerns Assessment Noted Time PHQ-9 Depression Total Score: 0 11/06/19 25 9:29 AM EDT documented as of this encounter Care Teams Eyelet Cutter Relationship Specialty Start Date End Date Stan Fletcher MD [address] [place] [address] PCP - General Internal Medicine 08/20/18 documented as of this encounter
--- OUTSIDE RECORDS SUMMARY | 2025-05-12 17:49 | XMS_ITS | Encounter Summary ---
Author Organization [employer] Address [address] [facility] 7 [place] [address] Care Team Providers Care Magnetic Resonance Imaging Coordinator Name Role Phone Stan Fletcher MD Primary Care Provider [phone] Reason for Visit * Reason Onset Date Comments Medication Question 04/29/2025 Encounter Details Date Type Department Care Team ([facility] Contact Info) Description 04/29/2025 Telephone [facility] [address] [place], [place] [phone] Stan Fletcher MD [address] [place] [address] Medication Question Social History Tobacco Use Types [...] very loose stool . Contact pt at [phone] (sign language) documented in this encounter Plan of Treatment Upcoming Encounters Date Type Department Care Team (Late st Contact Info) Description 05/15/2025 10:15 AM EDT Clinical Support [facility] [address] [place] [address] documented as of this encounter Visit Diagnoses Not on filedocumented in this encounter Additional Health Concerns Assessment Noted Time PHQ-9 Depression Total Score: 0 11/06/19 25 9:29 AM EDT documented as of this encounter Care Teams Magnetic Resonance Imaging Coordinator Relationship Specialty Start Date End Date Stan Fletcher MD [address] [place] [address] PCP - General Internal Medicine 08/20/18 documented as of this encounter
--- OUTSIDE RECORDS SUMMARY | 2025-05-12 17:49 | XMS_ITS | Encounter Summary ---
Author Organization [employer] Address [address] [place] [address] 7 [place] [address] Care Team Providers Care Typecasting Machine Operator Name Role Phone Stan Fletcher MD Primary Care Provider [phone] Reason for Visit * Reason Onset Date Comments Nurse Triage 05/07/2025 Encounter Details Date Type Department Care Team ([facility] Contact Info) Description 05/07/2025 Telephone [facility] CHC MED & PEDS [address] [place], [place] [phone] Stan Fletcher MD 505 [place] [address] Nurse Triage Social History Tobacco Use Types [...] 05/07/2025 9:52 AM EDT Called pt. Via assistant associate full professor. Pt. States that he has been having [...] for today with PCP for 245pm in [facility]. Protocol Used: Diarrhea (Adult) Protocol-Based Disposition: See in Office today at 245pm. [facility] Video visit offer not recorded Positive Triage [...] Wash Your Hands * Telephone Encounter - Geovaniihsan Gillian - 05/07/2025 8:59 AM EDT Symptom: Diarrhea Outcome: Schedule an appointment to be seen within 24 hours Reason: Caller denied all higher acuity questions The caller accepted this outcome. Contact pt at [phone] (upper sorbian) documented in this encounter Plan of Treatment Upcoming Encounters Date Type Department Care Team ([facility] st Contact Info) Description 05/15/2025 10:15 AM EDT Clinical Support [facility] MED & PEDS [address] [place] [address] documented as of this encounter Visit Diagnoses Not on filedocumented in this encounter Additional Health Concerns Assessment Noted Time PHQ-9 Depression Total Score: 0 11/06/19 25 9:29 AM EDT documented as of this encounter Care Teams Typecasting Machine Operator Relationship Specialty Start Date End Date Stan Fletcher MD 505 [place] [address] PCP - General Internal Medicine 08/20/18 documented as of this encounter
--- OUTSIDE RECORDS SUMMARY | 2025-05-12 17:49 | XMS_ITS | Encounter Summary ---
Author Organization [employer] Address [address] [facility] 7 [place] [address] Care Team Providers Care Aerial Advertiser Name Role Phone Stan Fletcher MD Primary Care Provider [phone] Reason for Visit * Reason Onset Date Comments Medication Question 03/16/2025 Encounter Details Date Type Department Care Team ([facility] Contact Info) Description 03/16/2025 Telephone [facility] CHC MED & PEDS 505 [place], [place] [phone] Stan Fletcher MD 505 [place] [address] Medication Question Social History Tobacco Use Types [...] Pt stated it issmaller. Contact pt at [phone] (ASL) documented in this encounter Plan of Treatment Upcoming Encounters Date Type Department Care Team (Late st Contact Info) Description 05/15/2025 10:15 AM EDT Clinical Support [facility] MED & PEDS [address] [place] [address] documented as of this encounter Visit Diagnoses Not on filedocumented in this encounter Additional Health Concerns Assessment Noted Time PHQ-9 Depression Total Score: 0 11/06/19 25 9:29 AM EDT documented as of this encounter Care Teams Aerial Advertiser Relationship Specialty Start Date End Date Stan Fletcher MD 505 [place] [address] PCP - General Internal Medicine 08/20/18 documented as of this encounter
--- OUTSIDE RECORDS SUMMARY | 2025-05-12 17:49 | XMS_ITS | Encounter Summary ---
Author Organization [employer] Address [address] [place] [address] 7 [place] [address] Care Team Providers Care Presales Consultant Name Role Phone Stan Fletcher MD Primary Care Provider [phone] Reason for Visit * Reason Onset Date Comments Appointment Request 05/08/2025 Encounter Details Date Type Department Care Team ([facility] Contact Info) Description 05/08/2025 Telephone [facility] CHC MED & PEDS 505 [place], [place] [phone] Stan Fletcher MD 505 [place] [address] Appointment Request Social History Tobacco Use Types Packs/Day [...] Telephone Encounter - Gloria Winkler RN - 05/11/2025 12:00 PM EDT TC to patient to schedule appointment for Hep. B injection. Message left for patient to return callto office. * Telephone Encounter - Fish French - 05/11/2025 8:50 AM EDT Tc from pt requesting a call back regarding prior message Contact pt at [phone] (sign language) * Telephone Encounter - Fish French - 05/08/2025 2:37 PM EDT Tc from pt requesting to schedule at for hep B injection Contact pt at [phone] (sign language) documented in this encounter Plan of Treatment Upcoming Encounters Date Type Department Care Team (Late st Contact Info) Description 05/15/2025 10:15 AM EDT Clinical Support [facility] MED & PEDS 505 [place] [address] documented as of this encounter Visit Diagnoses Not on filedocumented in this encounter Additional Health Concerns Assessment Noted Time PHQ-9 Depression Total Score: 0 11/06/19 25 9:29 AM EDT documented as of this encounter Care Teams Presales Consultant Relationship Specialty Start Date End Date Stan Fletcher MD [address] [place] [address] PCP - General Internal Medicine 08/20/18 documented as of this encounter
--- OUTSIDE RECORDS SUMMARY | 2025-05-12 17:49 | XMS_ITS | Encounter Summary ---
Author Organization [employer] Address [address] [place] [address] 7 [place] [address] Care Team Providers Care Air Motor Repairer Name Role Phone Stan Fletcher MD Primary Care Provider [phone] Encounter Details Date Type Department Care Team ([facility] Contact Info) Description 06/27/2023 Orders Only [facility] MED & PEDS 505 [place], [place] [phone] Stan Fletcher MD 505 [place] [address] Acute pain of left shoulder (Primary Dx) [...] Date Type Department Care Team ([facility] Contact Info) Description 05/15/2025 10:15 AM EDT Clinical Support [facility] MED & PEDS 505 [place], [place] [phone] documented as of this encounter Visit Diagnoses Diagnosis Acute pain of left shoulder- Primary documented in this encounter Care Teams Air Motor Repairer Relationship Specialty Start Date End Date Stan Fletcher MD [address] [place] [address] PCP - General Internal Medicine 08/20/18 documented as of this encounter
--- OUTSIDE RECORDS SUMMARY | 2025-05-12 17:49 | XMS_ITS | Encounter Summary ---
Author Organization [employer] Address [address] [place] [address] 7 [place] [address] Care Team Providers Care Grinder Operator Automatic Name Role Phone Stan Fletcher MD Primary Care Provider [phone] Reason for Visit * Reason Onset Date Comments Nurse Triage 08/23/2023 Encounter Details Date Type Department Care Team ([facility] st Contact Info) Description 08/23/2023 Telephone [facility] CHC MED & PEDS 505 [place], [place] [phone] Stan Fletcher MD 505 [place], [place] [phone] Nurse Triage Social History Tobacco Use Types [...] 3:50 PM EST Called pt. Back via network operations center technician #[id number]. Called pt. Asked him if he has any Covid tests at home to test himself for Covid. Pt. States he has a test at home but, he currently at Pharmacy picking up some OTC cough medicine. I will call pt. Back at 430pm to see what Covid test result is as pt. States he lives [place] [address] from [facility]. Called pt. Back via network operations center technician #[id number]. Pt. Took Covid test and it came out Negative. Pt. ShowedASL oil pumper over video and she states that only the control line is showing and only 1 line on home Covid test. Advised pt. That per Dr. Fletcher he would like pt. To go to Walk in at [facility] tomorrow 08/23/2023 in the am to get his lungs listened to and to assess left lung congestion. Pt. States understanding and will go to walk in at [facility] at 830am when walk in opens. * Telephone Encounter - Vivi Salazar RN - 08/23/2023 2:53 PM EST Called pt. Back via network operations center technician. Speech Language Pathologist #[id number]. Pt. States that he has a productive [...] accepted this outcome Please contact pt @ [phone] Sign Language documented in this encounter Plan of Treatment Upcoming Encounters Date Type Department Care Team ([facility] st Contact Info) Description 05/15/2025 10:15 AM EDT Clinical Support [facility] MED & PEDS [address] [place] [address] documented as of this encounter Visit Diagnoses Not on filedocumented in this encounter Care Teams Grinder Operator Automatic Relationship Specialty Start Date End Date Stan Fletcher MD [address] [place] [address] PCP - General Internal Medicine 08/20/18 documented as of this encounter
--- OUTSIDE RECORDS SUMMARY | 2025-05-12 17:49 | XMS_ITS | Encounter Summary ---
Author Organization [employer] [facility] Address [address] [place] [address] Care Team Providers Care In Flight Technician Name Role Phone Stan Fletcher MD Primary Care Provider [phone] Reason for Visit * Reason Comments Med Refill Encounter Details Date Type Department Care Team ([facility] Contact Info) Description 08/29/2022 Refill [facility] MED & PEDS [address] [place] [address] Stan Fletcher MD 505 [place] [address] Chronic pain syndrome Social History Tobacco Use [...] Upcoming Encounters Date Type Department Care Team ([facility] Contact Info) Description 05/15/2025 10:15 AM EDT Clinical Support [facility] MED & PEDS 505 [place], [place] [phone] documented as of this encounter Visit Diagnoses Diagnosis Chronic pain syndrome documented in this encounter Care Teams In Flight Technician Relationship Specialty Start Date End Date Stan Fletcher MD 505 [place], [place] [phone] PCP - General Internal Medicine 08/20/18 documented as of this encounter
--- OUTSIDE RECORDS SUMMARY | 2025-05-12 17:49 | XMS_ITS | Encounter Summary ---
Author Organization [facility] [facility] [employer] Address [address] [place] [address] 7 [place] [address] Care Team Providers Care Tilt Tray Driver Name Role Phone Stan Fletcher MD Primary Care Provider [phone] Encounter Details Date Type Department Care Team ([facility] Contact Info) Description 12/07/2022 Orders Only [facility] MED & PEDS [address] [place], [place] [phone] Stan Fletcher MD [address] [place] [address] Palpitations (Primary Dx) Social History Tobacco Use [...] Upcoming Encounters Date Type Department Care Team ([facility] Contact Info) Description 05/15/2025 10:15 AM EDT Clinical Support [facility] MED & PEDS [address] [place] [address] documented as of this encounter Visit Diagnoses Diagnosis Palpitations- Primary documented in this encounter Care Teams Tilt Tray Driver Relationship Specialty Start Date End Date Stan Fletcher MD [address] [place] [address] PCP - General Internal Medicine 08/20/18 documented as of this encounter
--- OUTSIDE RECORDS SUMMARY | 2025-05-12 17:49 | XMS_ITS | Encounter Summary ---
Author Organization [employer] Address [address] [place] [address], [place] [address] Care Team Providers Care Coin Machine Servicer Repairer Name Role Phone Stan Fletcher MD Primary Care Provider [phone] Reason for Referral * Consultation (Routine) - Closed Specialty Diagnoses / Procedures Referred By Contac t Referred To Contact Endocrinology Diagnoses Diabetes mellitus due to underlying condition with hyperglycemia, with long-term current use of insulin (CMS/HCC) Stan Fletcher MD [address] [place] [address] Phone: tel: fax: [facility] Endocrinology [address] [place] [address] Phone: tel: fax: Referral ID Status Reason Start Date Expiration Date V isits Requested Visits Authorized [id number] Closed Specialty Services Required 12/18/2024 12/18/2025 1 1 Encounter Details Date Type Department Care Team (Late st Contact Info) Description 12/10/2024 Orders Only [facility] CHC MED & PEDS [address] [place] [address] Stan Fletcher MD [address] [place] [address] Type 2 diabetes mellitus without complication, with [...] Description 05/15/2025 10:15 AM EDT Clinical Support [facility] CHC MED & PEDS [address] [place] [address] Scheduled Referrals Name Type Priority Associated Diagnoses Order Schedule Referral to Endocrinology Outpatient Referral Routine Diabetes mellitus due to underlying condition with hyperglycemia, with long-term current use of insulin (CMS/HCC) Expected: 12/18/2024 (Approximate), Expires: 12/18/2025 documented as of this encounter Procedures Procedure Name Priority Date/Time Associated Diagnosis Comments BASIC METABOLIC PANEL Routine 02/10/2025 10:40 AM EDT Primary hypertension documented in this encounter Results * (ABNORMAL) Basic Metabolic Panel (02/10/2025 10:40 AM EDT) Sodium 140 135 - 145 mmol/L [facility] Potassium 4.9 3.3 - 5.1 mmol/L [facility] Chloride 109(H) 96 - 108 mmol/L [facility] Carbon Dioxide 24 22 - 29 mmol/L [facility] Anion Gap 12 12 - 20 [facility] Urea Nitrogen (BUN) 47(H) 9 - 16 mg/dL [facility] Creatinine, Serum 1.46(H) 0.5 - 1.4 mg/dL [facility] Estimated Glomerular Filt Rate 49 [facility] Comment:Chronic Kidney Disea se: Estimated GFR < 60 mL/min/1.33n2Euwfny Kidney Disease: Estimated GFR < 15 mL/min/1.73m2 Glucose 87 60 - 115 mg/dL [facility] Calcium 9.5 8.4 - 10.2 mg/dL [facility] Blood Venous blood specimen / Unknown 02/10/2025 10:40 AM EDT 02/10/2025 1:58 PM EDT us Stan Fletcher MD LAB BLOOD ORDERABLES Final Result [facility] [address] [place], [place] [phone] documented in this encounter Visit Diagnoses Diagnosis Type 2 diabetes mellitus without complication, with long-term current use of insulin ([facility])- Primary Primary hypertension Unspecified essential hypertension Diabetes mellitus due to underlying condition with hyperglycemia, with long-term current use of insulin ([facility]) documented in this encounter Additional Health Concerns Assessment Noted Time PHQ-9 Depression Total Score: 0 11/06/19 25 9:29 AM EDT documented as of this encounter Care Teams Coin Machine Servicer Repairer Relationship Specialty Start Date End Date Stan Fletcher MD [address] [place] [address] PCP - General Internal Medicine 08/20/18 documented as of this encounter
--- OUTSIDE RECORDS SUMMARY | 2025-05-12 17:49 | XMS_ITS | Encounter Summary ---
Author Organization [employer] Address [address] [facility] [address] 7t [place] [address] Care Team Providers Care Wine Consultant Name Role Phone Stan Fletcher MD Primary Care Provider [phone] Encounter Details Date Type Department Care Team [...] [facility] Info) Description 05/15/2025 10:15 AM EDT Clinical Support [facility] MED & PEDS [address] [place] [address] documented as of this encounter Visit Diagnoses Not on filedocumented in this encounter Additional Health Concerns Assessment Noted Time PHQ-9 Depression Total Score: 0 11/06/19 25 9:29 AM EDT documented as of this encounter Care Teams Wine Consultant Relationship Specialty Start Date End Date Stan Fletcher MD [address] [place] [address] PCP - General Internal Medicine 08/20/18 documented as of this encounter
--- OUTSIDE RECORDS SUMMARY | 2025-05-12 17:49 | XMS_ITS | Encounter Summary ---
Author Organization [employer] Address [address] [facility] 7t [place] [address] Care Team Providers Care Application Assistant Name Role Phone Stan Fletcher MD Primary Care Provider [phone] Encounter Details Date Type Department Care Team ([facility] Contact Info) Description 11/12/2024 Orders Only [facility] [address] [place] [address] ProviderMarcelle MD Social History Tobacco Use Types [...] Upcoming Encounters Date Type Department Care Team ([facility] st Contact Info) Description 05/15/2025 10:15 AM EDT Clinical Support [facility] CHC MED & PEDS [address] [place] [address] documented as of this encounter Procedures Procedure [...] documented as of this encounter Care Teams Application Assistant Relationship Specialty Start Date End Date Stan Fletcher MD 505 [place] [address] PCP - General Internal Medicine 08/20/18 documented as of this encounter
--- OUTSIDE RECORDS SUMMARY | 2025-05-12 17:49 | XMS_ITS | Encounter Summary ---
Author Organization [employer] Address [address] [facility] 7 [place] [address] Care Team Providers Care Oiling Machine Operator Name Role Phone Stan Fletcher MD Primary Care Provider [phone] Reason for Visit * Reason Onset Date Comments Nurse Triage 02/13/2025 Encounter Details Date Type Department Care Team ([facility] st Contact Info) Description 02/13/2025 Telephone [facility] MEDICINE [address] [place] [address] Stan Fletcher MD [address] [place], [place] [phone] Nurse Triage Social History Tobacco Use Types [...] 10:22 AM EDT Called pt. Via 3594 spanish interpreter. Pt states that he was prescribed Aspirin 10mg every am a long time ago in the [place] and he stopped taking it in December [...] nurses to fu * Telephone Encounter - aPmela Mendez - 02/13/2025 10:06 AM EDT Symptom: Eye Redness Without Pus or Discharge Outcome: Schedule an appointment to be seen within 24 hours Reason: Caller denied all higher acuity questions The caller accepted this outcome. [phone] (Sign Language) documented in this encounter Plan of Treatment Upcoming Encounters Date Type Department Care Team (Late st Contact Info) Description 05/15/2025 10:15 AM EDT Clinical Support [facility] CHC MED & PEDS [address] [place] [address] documented as of this encounter Visit Diagnoses Not on filedocumented in this encounter Additional Health Concerns Assessment Noted Time PHQ-9 Depression Total Score: 0 11/06/19 25 9:29 AM EDT documented as of this encounter Care Teams Oiling Machine Operator Relationship Specialty Start Date End Date Stan Fletcher MD [address] [place] [address] PCP - General Internal Medicine 08/20/18 documented as of this encounter
--- OUTSIDE RECORDS SUMMARY | 2025-05-12 17:49 | XMS_ITS | Encounter Summary ---
Author Organization [employer] Address [address] [facility] 7 [place] [address] Care Team Providers Care Communications Consultant Name Role Phone Stan Fletcher MD Primary Care Provider [phone] Reason for Visit * Reason Onset Date Comments Med Refill 11/05/2023 Encounter Details Date Type Department Care Team ([facility] st Contact Info) Description 11/05/2023 Telephone [facility] MEDICINE [address] [place] [address] Stan Fletcher MD [address] [place], [place] [phone] Med Refill Social History Tobacco Use Types [...] Tc from [facility] at [facility] requesting scripts for Continuous Blood Gluc Director [facility] (FreeStyle Cathryn 2 [place]) device ,Continuous Blood Gluc Sensor (FreeStyle Cathryn 2 Sensor) misc and Precision Anjel Test Stripsit can be Faxed to [phone] documented in this encounter Plan of Treatment Upcoming Encounters Date Type Department Care Team (Late st Contact Info) Description 05/15/2025 10:15 AM EDT Clinical Support [facility] MED & PEDS [address] [place] [address] documented as of this encounter Visit Diagnoses Not on filedocumented in this encounter Care Teams Communications Consultant Relationship Specialty Start Date End Date Stan Fletcher MD [address] [place] [address] PCP - General Internal Medicine 08/20/18 documented as of this encounter
--- OUTSIDE RECORDS SUMMARY | 2025-05-12 17:49 | XMS_ITS | Encounter Summary ---
Author Organization [employer] Address [address] [place] [address] 7 [place] [address] Care Team Providers Care Manufacturing Applications Engineer Name Role Phone Stan Fletcher MD Primary Care Provider [phone] Encounter Details Date Type Department Care Team ([facility] Contact Info) Description 07/16/2023 Orders Only [facility] MED & PEDS [address] [place], [place] [phone] Stan Fletcher MD [address] [place] [address] Social History Tobacco Use Types Packs/Day Years [...] Upcoming Encounters Date Type Department Care Team ([facility] Contact Info) Description 05/15/2025 10:15 AM EDT Clinical Support [facility] MED & PEDS [address] [place], [place] [phone] documented as of this encounter Procedures Procedure Name Priority Date/Time Associated Diagnosis Comments MR SHOULDER WO CONTRAST LEFT Routine 08/07/2023 8:15 AM EST documented in this encounter Results * MR Shoulder w/o Contrast Left (08/07/2023 8:15 AM EST) Anatomical Region Laterality Modality Upper Extremities, Shoulder Left Magn etic Resonance 08/07/2023 8:15 AM EST Narrative 08/07/2023 3:29 PM EST [address] [address] Magnetic Resonance Report Signed Patient: Nick Escobar MR#: [id number] : 1960 Acct:[id number] Age/Sex: 62 / M ADM Date: 08/07/23 Loc: HO.MRI Attending Dr: Eddie Lawler MD Ordering Physician: Eddie Lawler MD Date of Service: 08/07/23 Procedure(s): MR shoulder LT wo con Accession Number(s): [id number] cc: Stan Fletcher MD; Eddie Lawler MD EXAMINATION: MR SHOULDER WITHOUT CONTRAST, LEFT CLINICAL INFORMATION: Posterior left shoulder and arm pain since 06/23/2023. Impingement syndrome. COMPARISON: Left shoulder radiographs dated 06/26/2023. TECHNIQUE: MRI of the shoulder was performed using routine sequences on a high-field scanner. FINDINGS: ROTATOR CUFF: Agks-op-qhkvjzzm supraspinatus tendinosis with anterior bursal surface fraying [...] MR/MR shoulder LT wo con IMPRESSION: 1. Lnku-ic-drrjuhhr supraspinatus tendinosis with anterior bursal surface fraying [...] in OV> 08/07/23 1526 DD/ 0815 TD/TT: Brewery Worker: Procedure Note Donotuseinterpreter, Image - 08/07/2023 [place] [address] Magnetic Resonance Report Signed Patient: Nick EscobarMR#: [id number] : 1960Acct:[id number] Age/Sex: 62 / MADM Date: 08/07/23 Loc: HO.MRI Attending Dr: Eddie Lawler MD Ordering Physician: Eddie Lawler MD Date of Service: 08/07/23 Procedure(s): MR shoulder LT wo con Accession Number(s): [id number] cc: Stan Fletcher MD; Eddie Lawler MD EXAMINATION: MR SHOULDER WITHOUT CONTRAST, LEFT CLINICAL INFORMATION: Posterior left shoulder and arm pain since 06/23/2023. Impingement syndrome. COMPARISON: Left shoulder radiographs dated 06/26/2023. TECHNIQUE: MRI of the shoulder was performed using routine sequences on a high-field scanner. FINDINGS: ROTATOR CUFF: Wpef-mc-yqstlwpf supraspinatus tendinosis with anterior bursal surface fraying [...] MR/MR shoulder LT wo con IMPRESSION: 1. Skaw-rh-kedtvuzz supraspinatus tendinosis with anterior bursal surface fraying [...] in OV> 08/07/23 1526 DD/ 0815 TD/TT: Brewery Worker: [facility] External Provider IMG MRI PROCEDURES Final Result documented in this encounter Visit Diagnoses Not on filedocumented in this encounter Care Teams Manufacturing Applications Engineer Relationship Specialty Start Date End Date Stan Fletcher MD [address] [place] [address] PCP - General Internal Medicine 08/20/18 documented as of this encounter
--- OUTSIDE RECORDS SUMMARY | 2025-05-12 17:49 | XMS_ITS | Encounter Summary ---
Author Organization [employer] Address [address] [facility] 7t [place] [address] Care Team Providers Care Printing Manager Name Role Phone Stan Fletcher MD Primary Care Provider [phone] Encounter Details Date Type Department Care Team ([facility] Contact Info) Description 05/08/2025 Results Follow-Up [facility] MEDICINE [address] [place] [address] Gloria Tyson, CAPRICE [address] [place] [address] Prothrombin Time-INR, Ferritin, Iron And Total Iron Binding Capacity Social History Tobacco Use Types Packs/Day Years [...] Miscellaneous Notes * Telephone Encounter - Gloria Tyson RN - 05/08/2025 12:16 PM EDT Images from the original note were not included. ----- Message from Stan Fletcher MD sent at 05/07/2025 9:59 PM EDT ----- Please call to inform Mr. Nick Escobar that his ferritin level is high which is a marker of inflammation and/or iron overload. Please advise low iron diet. I also ordered an HFP gene analysis to rule out hereditary hemochromatosis. Patient will be called with the rest of the workup. ----- Message ----- From: Interface, Lab Results In Sent: 05/07/2025 5:46 PM EDT To: MD Stan Ragsdale MD to [facility] Med & Peds Nurses (Selected Message) TB 05/08/25 11:43 AM Please call Mr Nick Escobar that his hep B is neg which indicate he has not immunity againstHep B. He needs to be vaccinated. T/C to pt via [employer] accounting office manager #[phone]. Pt reports agreement with plan. States he will seek immunization for Hep B at [facility] and call to schedule nurse visit if he is not able to be vaccinated at [facility]. Pt requesting information about liver enzymes. States provider mentioned something was abnormal aboutliver labs. Reviewed lifestyle recommendations. Pt reports that he does not drink alcohol and walksregularly. documented in this encounter Plan of Treatment Upcoming Encounters Date Type Department Care Team (Late st Contact Info) Description 05/15/2025 10:15 AM EDT Clinical Support [facility] MED & PEDS [address] [place] [address] documented as of this encounter Visit Diagnoses Not on filedocumented in this encounter Additional Health Concerns Assessment Noted Time PHQ-9 Depression Total Score: 0 11/06/19 25 9:29 AM EDT documented as of this encounter Care Teams Printing Manager Relationship Specialty Start Date End Date Stan Fletcher MD [address] [place] [address] PCP - General Internal Medicine 08/20/18 documented as of this encounter
--- OUTSIDE RECORDS SUMMARY | 2025-05-12 17:49 | XMS_ITS | Encounter Summary ---
Author Organization [employer] Address [address] [facility] 7 [place] [address] Care Team Providers Care Vehicle Trimmer Name Role Phone Stan Fletcher MD Primary Care Provider [phone] Reason for Visit * Reason Onset Date Comments Call Back Request 05/06/2025 fyi 05/06/2025 Encounter Details Date Type Department Care Team ([facility] Contact Info) Description 05/06/2025 Telephone [facility] MED & PEDS [address] [place] [address] Stan Fletcher MD 505 [place] [address] Call Back Request; fyi Social History Tobacco [...] soon to check kidneys Contact pt at [phone] (sign language) documented in this encounter Plan of Treatment Upcoming Encounters Date Type Department Care Team (Late st Contact Info) Description 05/15/2025 10:15 AM EDT Clinical Support [facility] MED & PEDS [address] [place] [address] documented as of this encounter Visit Diagnoses Not on filedocumented in this encounter Additional Health Concerns Assessment Noted Time PHQ-9 Depression Total Score: 0 11/06/19 9:29 AM EDT documented as of this encounter Care Teams Vehicle Trimmer Relationship Specialty Start Date End Date Stan Fletcher MD [address] [place] [address] PCP - General Internal Medicine 08/20/18 documented as of this encounter
--- OUTSIDE RECORDS SUMMARY | 2025-05-12 17:49 | XMS_ITS | Encounter Summary ---
Author Organization [employer] Address [address] [place] [address] Care Team Providers Care Sample Shoe Inspector And Reworker Name Role Phone Stan Fletcher MD Primary Care Provider [phone] Reason for Visit * Reason Comments Med Refill Encounter Details Date Type Department Care Team ([facility] Contact Info) Description 01/09/2023 Refill [facility] MED & PEDS [address] [place] [address] Stan Fletcher MD 505 [place] [address] Social History Tobacco Use Types Packs/Day Years [...] Upcoming Encounters Date Type Department Care Team ([facility] Contact Info) Description 05/15/2025 10:15 AM EDT Clinical Support [facility] MED & PEDS 505 [place] [address] documented as of this encounter Visit Diagnoses Not on filedocumented in this encounter Care Teams Sample Shoe Inspector And Reworker Relationship Specialty Start Date End Date Stan Fletcher MD [address] [place] [address] PCP - General Internal Medicine 08/20/18 documented as of this encounter
--- OUTSIDE RECORDS SUMMARY | 2025-05-12 17:49 | XMS_ITS | Encounter Summary ---
Author Organization [employer] Address [address] [place] [address] Care Team Providers Care Stone Cleaner Name Role Phone Stan Fletcher MD Primary Care Provider [phone] Reason for Referral * Consultation (Routine) - Canceled Specialty Diagnoses / Procedures Referred By Contivan t Referred To Contact Endocrinology Diagnoses Type 2 diabetes mellitus without complication, with long-term current use of insulin (CMS/HCC) Stan Fletcher MD [address] [place] [address] Phone: tel: fax: Referral ID Status Reason Start Date Expiration Date Visits Requested Visits Authorized [id number] Canceled Specialty Services Required 02/13/2025 02/13/2026 1 1 Encounter Details Date Type Department Care Team ([facility] Contact Info) Description 02/13/2025 Orders Only [facility] CHC MED & PEDS 505 [place] [address] Stan Fletcher MD [address] [place] [address] Type 2 diabetes mellitus without complication, with [...] 10:15 AM EDT Clinical Support [facility] MED & PEDS 505 [place] [address] Scheduled Referrals Name Type Priority Associated Diagnoses [...] documented as of this encounter Care Teams Stone Cleaner Relationship Specialty Start Date End Date Stan Fletcher MD [address] [place] [address] PCP - General Internal Medicine 08/20/18 documented as of this encounter
--- OUTSIDE RECORDS SUMMARY | 2025-05-12 17:49 | XMS_ITS | Encounter Summary ---
Author Organization [employer] [facility] Address [address] [place] [address] 7 [place] [address] Care Team Providers Care 1St Pressman Name Role Phone Stan Fletcher MD Primary Care Provider [phone] Encounter Details Date Type Department Care Team ([facility] Contact Info) Description 08/03/2022 Telephone [facility] MED & PEDS [address] [place] [address] Stan Fletcher MD [address] [place] [address] Social History Tobacco Use Types Packs/Day Years [...] Department Care Team (Late Contact Info) Description 05/15/2025 10:15 AM EDT Clinical Support [facility] MED & PEDS [address] [place] [address] documented as of this encounter Visit Diagnoses Not on filedocumented in this encounter Care Teams 1St Pressman Relationship Specialty Start Date End Date Stan Fletcher MD [address] [place] [address] PCP - General Internal Medicine 08/20/18 documented as of this encounter
--- OUTSIDE RECORDS SUMMARY | 2025-05-12 17:49 | XMS_ITS | Encounter Summary ---
Author Organization [employer] Address [address] [place] [address] 7 [place] [address] Care Team Providers Care Loan Officer Assistant Name Role Phone Stan Fletcher MD Primary Care Provider [phone] Encounter Details Date Type Department Care Team ([facility] Contact Info) Description 08/23/2023 Orders Only [facility] MED & PEDS [address] [place] [address] Stan Fletcher MD [address] [place] [address] Social History Tobacco Use Types Packs/Day Years [...] Upcoming Encounters Date Type Department Care Team ([facility] Contact Info) Description 05/15/2025 10:15 AM EDT Clinical Support [facility] MED & PEDS [address] [place] [address] documented as of this encounter Visit Diagnoses Not on filedocumented in this encounter Care Teams Loan Officer Assistant Relationship Specialty Start Date End Date Stan Fletcher MD [address] [place] [address] PCP - General Internal Medicine 08/20/18 documented as of this encounter
--- OUTSIDE RECORDS SUMMARY | 2025-05-12 17:49 | XMS_ITS | Encounter Summary ---
Author Organization [employer] [facility] Address [address] [place] [address] Care Team Providers Care Healthcare Science Specialist Name Role Phone Stan Fletcher MD Primary Care Provider [phone] Reason for Visit * Reason Comments Med Refill Encounter Details Date Type Department Care Team ([facility] Contact Info) Description 03/20/2023 Refill [facility] MED & PEDS [address] [place] [address] Stan Fletcher MD 505 [place] [address] Type 2 diabetes mellitus with hyperglycemia, with [...] Clinical Support [facility] MED & PEDS [address] [place] [address] documented as of this encounter Visit Diagnoses Diagnosis Type 2 diabetes mellitus with hyperglycemia, with long-term current use of insulin (CMS/HCC) documented in this encounter Care Teams Healthcare Science Specialist Relationship Specialty Start Date End Date Stan Fletcher MD [address] [place] [address] PCP - General Internal Medicine 08/20/18 documented as of this encounter
--- OUTSIDE RECORDS SUMMARY | 2025-05-12 17:49 | XMS_ITS | Encounter Summary ---
Author Organization [employer] Address [address] [place] [address] 7 [place] [address] Care Team Providers Care Clinical Pharmacy Manager Name Role Phone Stan Fletcher MD Primary Care Provider [phone] Reason for Visit * Reason Onset Date Comments Durable Medical Equipment 01/26/2023 Encounter Details Date Type Department Care Team ([facility] Contact Info) Description 01/26/2023 Telephone [facility] CHC MED & PEDS [address] [place], [place] [phone] Stan Fletcher MD [address] [place] [address] Durable Medical Equipment Social History Tobacco Use [...] CCA. For clarification, please contact pt at [phone] (Sign language) documented in this encounter Plan of Treatment Upcoming Encounters Date Type Department Care Team (Late st Contact Info) Description 05/15/2025 10:15 AM EDT Clinical Support [facility] CHC MED & PEDS [address] [place] [address] documented as of this encounter Visit Diagnoses Diagnosis Type 2 diabetes mellitus without complication, with long-term current use of insulin ([facility])- Primary documented in this encounter Care Teams Clinical Pharmacy Manager Relationship Specialty Start Date End Date Stan Fletcher MD [address] [place] [address] PCP - General Internal Medicine 08/20/18 documented as of this encounter
--- OUTSIDE RECORDS SUMMARY | 2025-05-12 17:49 | XMS_ITS | Encounter Summary ---
Author Organization [employer] Address [address] [place] [address] Care Team Providers Care Psych Therapist Name Role Phone Stan Fletcher MD Primary Care Provider [phone] Reason for Referral * Consultation (Routine) - Closed Specialty Diagnoses / Procedures Referred By Contac t Referred To Contact Gastroenterology Diagnoses Positive colorectal cancer screening using Cologuard test Stan Fletcher MD [address] [place] [address] Phone: tel: fax: Neli Jaeger MD [address] [place] [address] Phone: tel: fax: Referral ID Status Reason Start Date Expiration Date V isits Requested Visits Authorized [id number] Closed Specialty Services Required 12/14/2023 12/13/2024 1 1 Encounter Details Date Type Department Care Team ([facility] Contact Info) Description 12/14/2023 Orders Only [facility] CHC MED & PEDS [address] [place], [place] [phone] Stan Fletcher MD [address] [place], [place] [phone] Positive colorectal cancer screening using Cologuard test [...] Description 05/15/2025 10:15 AM EDT Clinical Support [facility] MED & PEDS [address] [place] [address] Scheduled Referrals Name Type Priority Associated Diagnoses [...] documented as of this encounter Care Teams Psych Therapist Relationship Specialty Start Date End Date Stan Fletcher MD [address] [place] [address] PCP - General Internal Medicine 08/20/18 documented as of this encounter
== END 2025-05-12 15:59 | disposition home or self-care (01) ==
LOC: HO.HNS 14:37
PROVIDERS: Visit Provider Physician Assistant
DX: Z98.1 Arthrodesis status (principal)
CPT/HCPCS: 99024

== ENCOUNTER → 2025-05-12 14:44 | Outpatient (BNV) | payer MEDICARE, MEDICAID, SELFPAY | PROVIDERS: Visit Provider Radiology Diagnostic Radiology | DX: M48.062 Spinal stenosis, lumbar region with neurogenic claudication (principal) | CPT/HCPCS: 72110 ==

== ENCOUNTER 2025-05-12 16:02 | Outpatient (REF) | payer MEDICARE, MEDICAID, SELFPAY | END 2025-05-12 16:03 | disposition home or self-care (01) | LOC: HO.CHCLNP 16:02 | PROVIDERS: Visit Provider Internal Medicine | DX: Z13.89 Encounter for screening for other disorder (principal) | CPT/HCPCS: 87507 ==

== ENCOUNTER 2025-05-18 08:31 | Outpatient (REF) | payer MEDICARE, MEDICAID, SELFPAY ==
--- OUTSIDE RECORDS SUMMARY | 2025-05-15 10:15 | XMS_ITS | Encounter Summary ---
Author Organization [employer] Address [address] [facility] 7t [place] [address] Care Team Providers Care Cigar Packing Examiner Name Role Phone Stan Fletcher MD Primary Care Provider [phone] Reason for Visit * Reason Comments Immunizations Encounter Details Date Type Department Care Team (Latest Contact Info) Description 05/15/2025 10:15 AM EDT Clinical Support [facility] MED & PEDS [address] [place] [address] Cheryl Melendez RN Encounter for immunization Social History [...] t he electric, gas, oil or water [employer] threatened to shut off services in your [...] for Immunizations Preferred language for medical information: South Korean Sign Language Nick Escobar denies feeling sick [...] Upcoming Encounters Date Type Department Care Team ([facility] Contact Info) Description 06/12/2025 10:00 AM EDT Clinical Support [facility] MED & PEDS [address] [place] [address] documented as of this encounter Visit Diagnoses Diagnosis Encounter for immunization documented in this encounter Additional Health Concerns Assessment Noted Time PHQ-9 Depression Total Score: 0 11/06/19 25 9:29 AM EDT documented as of this encounter Care Teams Cigar Packing Examiner Relationship Specialty Start Date End Date Stan Fletcher MD [address] [place] [address] PCP - General Internal Medicine 08/20/18 documented as of this encounter
--- NOTE | ~2025-05-18 | XR_ITS ---
EXAMINATION: XR HIP, RIGHT CLINICAL INFORMATION: M25.551 - Pain in right hip COMPARISON: October 09, 2024 TECHNIQUE: AP view pelvis. AP and oblique views, of the right hip. FINDINGS: Sclerosis and subchondral cyst formation along the articular surface of the right acetabulum. Asymmetric joint space narrowing, right coxofemoral joint. Mild sclerosis along the articular surface of the left acetabulum and symphysis pubis. Bony pelvis is intact. Metallic hardware at L3-4 and intervertebral disc spacer placement at L3-4 and L4-5. Spondylosis at L5-S1. XR/XR hip RT min 2V IMPRESSION: Mild to moderate osteoarthritis/osteoarthrosis, right hip. No acute fracture or dislocation. Electronically signed by: Dion Cortez MD 05/18/2025 10:57 AM EDT
--- OUTSIDE RECORDS SUMMARY | 2025-05-19 08:50 | XMS_ITS | Encounter Summary ---
Author Organization [employer] Address [address] [place] [address] 7 [place] [address] Care Team Providers Care Podiatric Aide Name Role Phone Stan Fletcher MD Primary Care Provider [phone] Encounter Details Date Type Department Care Team ([facility] Contact Info) Description 06/27/2023 Orders Only [facility] MED & PEDS [address] [place], [place] [phone] Stan Fletcher MD [address] [place] [address] Acute pain of left shoulder (Primary Dx) [...] Upcoming Encounters Date Type Department Care Team ([facility] Contact Info) Description 06/12/2025 10:00 AM EDT Clinical Support [facility] MED & PEDS [address] [place], [place] [phone] documented as of this encounter Visit Diagnoses Diagnosis Acute pain of left shoulder- Primary documented in this encounter Care Teams Podiatric Aide Relationship Specialty Start Date End Date Stan Fletcher MD [address] [place] [address] PCP - General Internal Medicine 08/20/18 documented as of this encounter
--- OUTSIDE RECORDS SUMMARY | 2025-05-19 08:50 | XMS_ITS | Encounter Summary ---
Author Organization [employer] Address [address] [place] [address] 7 [place] [address] Care Team Providers Care Scratch Brusher Name Role Phone Stan Fletcher MD Primary Care Provider [phone] Encounter Details Date Type Department Care Team ([facility] Contact Info) Description 08/23/2023 Orders Only [facility] MED & PEDS [address] [place] [address] Stan Fletcher MD [address] [place] [address] Social History Tobacco Use Types Packs/Day Years [...] Upcoming Encounters Date Type Department Care Team ([facility] Contact Info) Description 06/12/2025 10:00 AM EDT Clinical Support [facility] MED & PEDS [address] [place] [address] documented as of this encounter Visit Diagnoses Not on filedocumented in this encounter Care Teams Scratch Brusher Relationship Specialty Start Date End Date Stan Fletcher MD [address] [place] [address] PCP - General Internal Medicine 08/20/18 documented as of this encounter
--- OUTSIDE RECORDS SUMMARY | 2025-05-19 08:50 | XMS_ITS | Encounter Summary ---
Author Organization [facility] Address [address] [place] [address] Care Team Providers Care Oxidation Operator Name Role Phone Stan Fletcher MD Primary Care Provider [phone] Reason for Visit * Reason Comments Med Refill Encounter Details Date Type Department Care Team ([facility] Contact Info) Description 08/29/2022 Refill [facility] MED & PEDS [address] [place] [address] Stan Fletcher MD [address] [place] [address] Chronic pain syndrome Social History Tobacco Use [...] Upcoming Encounters Date Type Department Care Team ([facility] Contact Info) Description 06/12/2025 10:00 AM EDT Clinical Support [facility] MED & PEDS [address] [place], [place] [phone] documented as of this encounter Visit Diagnoses Diagnosis Chronic pain syndrome documented in this encounter Care Teams Oxidation Operator Relationship Specialty Start Date End Date Stan Fletcher MD [address] [place], [place] [phone] PCP - General Internal Medicine 08/20/18 documented as of this encounter
--- OUTSIDE RECORDS SUMMARY | 2025-05-19 08:50 | XMS_ITS | Encounter Summary ---
Author Organization [employer] Address [address] [facility] 7 [place] [address] Care Team Providers Care Edge Molder Name Role Phone Stan Fletcher MD Primary Care Provider [phone] Reason for Visit * Reason Onset Date Comments Medication Question 04/29/2025 Encounter Details Date Type Department Care Team ([facility] Contact Info) Description 04/29/2025 Telephone [facility] CHC MED & PEDS [address] [place], [place] [phone] Stan Fletcher MD 505 [place] [address] Medication Question Social History Tobacco Use Types [...] very loose stool . Contact pt at [phone] (sign language) documented in this encounter Plan of Treatment Upcoming Encounters Date Type Department Care Team ([facility] st Contact Info) Description 06/12/2025 10:00 AM EDT Clinical Support [facility] CHC MED & PEDS [address] [place] [address] documented as of this encounter Visit Diagnoses Not on filedocumented in this encounter Additional Health Concerns Assessment Noted Time PHQ-9 Depression Total Score: 0 11/06/19 25 9:29 AM EDT documented as of this encounter Care Teams Edge Molder Relationship Specialty Start Date End Date Stan Fletcher MD [address] [place] [address] PCP - General Internal Medicine 08/20/18 documented as of this encounter
--- OUTSIDE RECORDS SUMMARY | 2025-05-19 08:50 | XMS_ITS | Encounter Summary ---
Author Organization [employer] Address [address] [place] [address] Care Team Providers Care Shrinker Name Role Phone Stan Fletcher MD Primary Care Provider [phone] Reason for Referral * Imaging (Routine) - Authorized Specialty Diagnoses / Procedures Referred By Contac t Referred To Contact Radiology Diagnoses Decreased GFR Procedures US RENAL BI Stan Fletcher MD [address] [place] [address] Phone: tel: fax: [address] Phone: tel: fax: Referral ID Status Reason Start Date Expiration Date V isits Requested Visits Authorized [id number] Authorized 05/07/2025 05/07/2026 1 1 * Imaging (Routine) - Authorized Specialty Diagnoses / Procedures Referred By Contac t Referred To Contact Radiology Diagnoses Transaminitis Procedures US Abdomen Comp w elastography Stan Fletcher MD [address] [place] [address] Phone: tel: fax: [address] Phone: tel: fax: Referral ID Status Reason Start Date Expiration Date V isits Requested Visits Authorized [id number] Authorized 05/06/2025 05/06/2026 1 1 Encounter Details Date Type Department Care Team ([facility] st Contact Info) Description 05/05/2025 Orders Only [facility] CHC MED & PEDS [address] [place] [address] Stan Fletcher MD [address] [place] [address] Transaminitis (Primary Dx); Decreased GFR Social History [...] Support [facility] CHC MED & PEDS [address] [place] [address] Scheduled Orders Name Type Priority Associated Diagnoses [...] EDT) Iron 161(H) 45 - 160 mcg/dL [facility] Total Iron Binding Capacity 273 228 - 428 mcg/dL [facility] Percent Iron Saturation 59(H) 15 - 50 % [facility] Unsaturated Iron Binding 112 ug/dL [facility] Blood Venous blood specimen / Unknown 05/07/2025 3:25 PM EDT 05/07/2025 5:39 PM EDT us Stan Fletcher MD LAB BLOOD ORDERABLES Final Result Performing Organization Address [facility]/ZIP Co de Phone Number [facility] [address] [place] [phone] * (ABNORMAL) Ferritin (05/07/2025 3:25 PM EDT) Ferritin 619(H) 20 - 250 ng/mL [facility] Blood Venous blood specimen / Unknown 05/07/2025 3:25 PM EDT 05/07/2025 5:39 PM EDT us Stan Fletcher MD LAB BLOOD ORDERABLES Final Result Performing Organization Address [facility] de Phone Number [facility] [address] [place] [phone] * (ABNORMAL) Prothrombin Time-INR (05/07/2025 3:25 PM EDT) Prothrombin Time 14.0(H) 10.9 - 12.4 SEC [facility] INTERNATIONAL NORM RATIO 1.2(H) 0.9 - 1.1 [facility] Comment:INTERNATIONAL NORMAL IZED RATIO (INR) [...] BLOOD ORDERABLES Final Result Performing Organization Address [facility] Co de Phone Number [facility] [address] [place] [phone] * Immunoglobulins, Quantitative, IgA, IgG, IgM (05/07/2025 3:25 PM EDT) IMMUNOGLOBULIN G 982 600 - 1540 mg/dL [facility] IMMUNOGLOBULIN A 142 70 - 320 mg/dL [facility] Immunoglobulin M 86 50 - 300 mg/dL [facility] Comment:THIS TEST WAS PERFOR MED AT:[employer] [place] [phone] MANRIQUEZ MD Blood Venous blood specimen / Unknown 05/07/2025 3:25 PM EDT 05/07/2025 5:39 PM EDT us Stan Fletcher MD LAB BLOOD ORDERABLES Final Result Performing Organization Address [facility] Co de Phone Number [facility] [address] [place] [phone] documented in this encounter Visit Diagnoses Diagnosis Transaminitis- Primary Nonspecific elevation of levels of transaminase or lactic acid dehydrogenase (LDH) Decreased GFR documented in this encounter Additional Health Concerns Assessment Noted Time PHQ-9 Depression Total Score: 0 11/06/19 25 9:29 AM EDT documented as of this encounter Care Teams Shrinker Relationship Specialty Start Date End Date Stan Fletcher MD [address] [place] [address] PCP - General Internal Medicine 08/20/18 documented as of this encounter
--- OUTSIDE RECORDS SUMMARY | 2025-05-19 08:50 | XMS_ITS | Encounter Summary ---
Author Organization [employer] Address [address] [place] [address] [place] [address] Care Team Providers Care Correspondence Representative Name Role Phone Stan Fletcher MD Primary Care Provider [phone] Reason for Visit * Reason Comments Med Refill Encounter Details Date Type Department Care Team ([facility] Contact Info) Description 01/09/2023 Refill [facility] MED & PEDS [address] [place] [address] Stan Fletcher MD 505 [place] [address] Social History Tobacco Use Types Packs/Day Years [...] Upcoming Encounters Date Type Department Care Team ([facility] Contact Info) Description 06/12/2025 10:00 AM EDT Clinical Support [facility] MED & PEDS [address] [place] [address] documented as of this encounter Visit Diagnoses Not on filedocumented in this encounter Care Teams Correspondence Representative Relationship Specialty Start Date End Date Stan Fletcher MD [address] [place] [address] PCP - General Internal Medicine 08/20/18 documented as of this encounter
--- OUTSIDE RECORDS SUMMARY | 2025-05-19 08:50 | XMS_ITS | Encounter Summary ---
Author Organization [employer] Address [address] [place] [address] 7 [place] [address] Care Team Providers Care Finishing Machine Tender Name Role Phone Stan Fletcher MD Primary Care Provider [phone] Reason for Visit * Reason Onset Date Comments Durable Medical Equipment 01/26/2023 Encounter Details Date Type Department Care Team ([facility] Contact Info) Description 01/26/2023 Telephone [facility] CHC MED & PEDS [address] [place], [place] [phone] Stan Fletcher MD [address] [place] [address] Durable Medical Equipment Social History Tobacco Use [...] CCA. For clarification, please contact pt at [phone] (Sign language) documented in this encounter Plan of Treatment Upcoming Encounters Date Type Department Care Team (Late st Contact Info) Description 06/12/2025 10:00 AM EDT Clinical Support [facility] CHC MED & PEDS [address] [place] [address] documented as of this encounter Visit Diagnoses Diagnosis Type 2 diabetes mellitus without complication, with long-term current use of insulin (HCC)- Primary documented in this encounter Care Teams Finishing Machine Tender Relationship Specialty Start Date End Date Stan Fletcher MD [address] [place] [address] PCP - General Internal Medicine 08/20/18 documented as of this encounter
--- OUTSIDE RECORDS SUMMARY | 2025-05-19 08:50 | XMS_ITS | Encounter Summary ---
Author Organization [employer] Address [address] [facility] 7t [place] [address] Care Team Providers Care Survey Supervisor Name Role Phone Stan Fletcher MD Primary Care Provider [phone] Encounter Details Date Type Department Care Team ([facility] Contact Info) Description 11/12/2024 Orders Only [facility] [address] [place] [address] ProviderMarcelle MD Social History Tobacco Use Types [...] ([facility] st Contact Info) Description 06/12/2025 10:00 AM EDT Clinical Support [facility] CHC MED & PEDS [address] [place] [address] documented as of this encounter Procedures Procedure [...] documented as of this encounter Care Teams Survey Supervisor Relationship Specialty Start Date End Date Stan Fletcher MD [address] [place] [address] PCP - General Internal Medicine 08/20/18 documented as of this encounter
--- OUTSIDE RECORDS SUMMARY | 2025-05-19 08:50 | XMS_ITS | Encounter Summary ---
Author Organization [employer] Address [address] [facility] [address] 7t [place] [address] Care Team Providers Care Transit Mechanic Name Role Phone Stan Fletcher MD Primary Care Provider [phone] Encounter Details Date Type Department Care Team [...] 06/12/2025 10:00 AM EDT Clinical Support [facility] MED & PEDS [address] [place] [address] documented as of this encounter Visit Diagnoses Not on filedocumented in this encounter Additional Health Concerns Assessment Noted Time PHQ-9 Depression Total Score: 0 11/06/19 25 9:29 AM EDT documented as of this encounter Care Teams Transit Mechanic Relationship Specialty Start Date End Date Stan Fletcher MD [address] [place] [address] PCP - General Internal Medicine 08/20/18 documented as of this encounter
--- OUTSIDE RECORDS SUMMARY | 2025-05-19 08:50 | XMS_ITS | Encounter Summary ---
Author Organization [employer] Address [address] [facility] 7 [place] [address] Care Team Providers Care 7Th Grade Social Studies Teacher Name Role Phone Stan Fletcher MD Primary Care Provider [phone] Reason for Visit * Reason Onset Date Comments Medication Question 03/16/2025 Encounter Details Date Type Department Care Team ([facility] Contact Info) Description 03/16/2025 Telephone [facility] CHC MED & PEDS [address] [place], [place] [phone] Stan Fletcher MD [address] [place] [address] Medication Question Social History Tobacco Use Types [...] Pt stated it issmaller. Contact pt at [phone] (ASL) documented in this encounter Plan of Treatment Upcoming Encounters Date Type Department Care Team (Late st Contact Info) Description 06/12/2025 10:00 AM EDT Clinical Support [facility] MED & PEDS [address] [place] [address] documented as of this encounter Visit Diagnoses Not on filedocumented in this encounter Additional Health Concerns Assessment Noted Time PHQ-9 Depression Total Score: 0 11/06/19 25 9:29 AM EDT documented as of this encounter Care Teams 7Th Grade Social Studies Teacher Relationship Specialty Start Date End Date Stan Fletcher MD [address] [place] [address] PCP - General Internal Medicine 08/20/18 documented as of this encounter
--- OUTSIDE RECORDS SUMMARY | 2025-05-19 08:50 | XMS_ITS | Clinical Summary ---
Author Organization [employer] Address 75 [facility] 7 [place] [address] Care Team Providers Care Frit Coater Name Role Phone Stan Fletcher MD Primary Care Provider [phone] Allergies Active Allergy Reactions Criticality Noted Date [...] mL 11 2022 Active Continuous Blood Gluc Excelsior Machine Tender (FreeStyle Cathryn 2 [place]) deviceIndications:Type 2 diabetes mellitus without complication, with long-term current use of insulin ([facility]) To use daily 1 each 2022 Active Continuous Blood Gluc Sensor (FreeStyle Cathryn 2 Sensor) miscIndications:Type 2 diabetes mellitus without complication, with long-term current use of insulin ([facility]) To use daily 2 each 2022 Active [...] hyperglycemia, with long-term current use of insulin ([facility]) INJECT 12 UNITS SUBCUTANEOUSLY THREE TIMES [...] complication, with long-term current use of insulin ([facility]) Inject 12 Units as directed 3 times daily. 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 Do not crush or chew. 60 capsule 11 2023 Active Continuous Glucose Excelsior Machine Tender (FreeStyle Cathryn 2 [place]) deviceIndications:Type 2 diabetes mellitus without complication, with long-term current use of insulin ([facility]) Scan sensor every 8 hours 1 each 2023 Active Continuous Glucose Sensor (FreeStyle Cathryn 2 Sensor) miscIndications:Type 2 diabetes mellitus without complication, with long-term current use of insulin ([facility]) Apply 1 sensor every 14 days 2 each 2023 Active atorvastatin (Lipitor) 40 MG tabletIndications:Pure hypercholesterolemia TAKE ONE TABLET EVERY MORNING 30 tablet 11 2023 Active Lantus SoloStar 100 UNIT/ML pen INJECT 60 UNITS SUBCUTANEOUSLY ONCE DAILY 30 mL 2023 Active TechLite Pen [place] 32G X 6 MM misc USE FOUR [...] complication, with long-term current use of insulin ([facility]) Take 1 tablet (100 mg) by mouth [...] complication, with long-term current use of insulin ([facility]) To use 2 times a day 100 [...] [facility] [address] [place] [address] Cheryl Melendez RN Encounter for immunization 05/15/2025 Travel 05/14/2025 Telephone [facility] [address] [place] [address] Stan Fletcher MD Results 05/13/2025 Telephone [facility] [address] [place] [address] Veronica Wooten, PharmD 05/12/[address] [address] Stan Fletcher MD 05/12/2025 Travel 05/08/2025 Telephone [facility] [address] [place] [address] Stan Fletcher MD Appointment Request 05/08/2025 Results Follow-Up [address] [address] Gloria Tyson RN Prothrombin Time-INR, Ferritin, Iron And Total Iron Binding Capacity 05/07/2025 2:45 PM EDT Office Visit [facility] [address] [place] [address] Stan Fletcher MD Diarrhea, unspecified type (Primary Dx); Primary hypertension; Type 2 diabetes mellitus without complication, with long-term current use of insulin ([facility]); Transaminitis; Irritant contact dermatitis due to other agents; Primary insomnia 05/07/2025 Results Follow-Up [facility] [address] [place] [address] Cheryl Melendez RN Glucose, Whole Blood, Basic Metabolic Panel, AST, ALT 05/07/2025 Travel 05/07/2025 Telephone [facility] [address] [place] [address] Stan Fletcher MD Nurse Triage 05/06/2025 Telephone [facility] [address] [place] [address] Stan Mojica MD Call Back Request; fyi 05/05/2025 Orders Only [facility] [address] [place] [address] Stan Fletcher MD Transaminitis (Primary Dx); Decreased GFR 05/05/2025 Orders Only GENERIC EXTERNAL DATA DEPARTMENT Provider, Generic External Data 04/29/2025 Telephone [facility] [address] [place] [address] Stan Fletcher MD Medication Question 04/22/2025 2:15 PM EDT Office Visit [facility] [address] [place] [address] Stan Fletcher MD Type 2 diabetes mellitus without complication, with long-term current use of insulin ([facility]) (Primary Dx); Primary hypertension; Right hip pain 04/22/2025 Travel 04/21/2025 Telephone [facility] [address] [place] [address] Stan Fletcher MD Chart Prep 04/21/[address] [address] Stan Fletcher MD Nurse Triage 03/30/2025 Telephone [facility] [address] [place] [address] Stan Fletcher MD Med Refill 03/19/[address] [address] Stan Fletcher MD Appointment Request 03/16/2025 Telephone [facility] [address] [place] [address] Stan Fletcher MD Medication Question 03/04/2025 Telephone [facility] [address] [place] [address] Stan Fletcher MD Medication Question 03/03/[address] [address] Stan Fletcher MD Nurse Triage 03/02/2025 Refill [facility] [address] [place] [address] Stan Fletcher MD Right sided sciatica 02/25/2025 Telephone [facility] [address] [place] [address] Stan Fletcher MD Referral 02/24/2025 Telephone [facility] [address] [place] [address] Stan Fletcher MD Appointment Request 02/23/2025 Telephone [facility] [address] [place] [address] Stan Fletcher MD Medication Question 02/23/2025 Refill [facility] [address] [place] [address] Stan Fletcher MD Right sided sciatica from [...] [facility] [address] [place] [address] Health Maintenance Due Date Last Done Comments [...] complication, with long-term current use of insulin ([facility]) POCT GLUCOSE Routine 04/22/2025 4:07 PM EDT Type 2 diabetes mellitus without complication, with long-term current use of insulin ([facility]) LIPID PANEL, STANDARD Routine 11/12/2024 11:34 AM [...] PM EDT) Hepatitis A IgM Nonreactive Nonreactive [facility] Comment:IgM antibodies to AVERY V not detected; does not exclude earlyacute or recovered HAV infection. ~Hepatitis B Surface Antibody NONREACTIVE Nonreactive [facility] Comment:Nonreactive: < 8.00 mIU/mL Hepatitis B Core Antibody Nonreactive Nonreactive [facility] Hepatitis C Antibody Nonreactive Nonreactive [facility] Comment:Antibodies to HCV no t detected; does not exclude early acuteHCV infection. Hepatitis B Surface Ag Negative Negative [facility] Blood Venous blood specimen / Unknown 05/07/2025 3:25 PM EDT 05/07/2025 5:39 PM EDT us Stan Fletcher MD LAB BLOOD ORDERABLES Final Result [facility] [address] [place] [address] [phone] * (ABNORMAL) Iron And Total Iron Binding Capacity (05/07/2025 3:25 PM EDT) Iron 161(H) 45 - 160 mcg/dL [facility] Total Iron Binding Capacity 273 228 - 428 mcg/dL [facility] Percent Iron Saturation 59(H) 15 - 50 % [facility] Unsaturated Iron Binding 112 ug/dL [facility] Blood Venous blood specimen / Unknown 05/07/2025 3:25 PM EDT 05/07/2025 5:39 PM EDT us Stan Fletcher MD LAB BLOOD ORDERABLES Final Result Performing Organization Address [facility]/ZIP Co de Phone Number [facility] [address] [place] [address] [phone] * (ABNORMAL) Prothrombin Time-INR (05/07/2025 3:25 PM EDT) Prothrombin Time 14.0(H) 10.9 - 12.4 SEC [facility] INTERNATIONAL NORM RATIO 1.2(H) 0.9 - 1.1 [facility] Comment:INTERNATIONAL NORMAL IZED RATIO [...] BLOOD ORDERABLES Final Result Performing Organization Address City/[facility]/ZIP Co de Phone Number [facility] [address] [place] [phone] * Immunoglobulins, Quantitative, IgA, IgG, IgM (05/07/2025 3:25 PM EDT) IMMUNOGLOBULIN G 982 600 - 1540 mg/dL [facility] IMMUNOGLOBULIN A 142 70 - 320 mg/dL [facility] Immunoglobulin M 86 50 - 300 mg/dL [facility] Comment:THIS TEST WAS PERFOR MED AT:[employer] [place] [phone] MANRIQUEZ MD Blood Venous blood specimen / Unknown 05/07/2025 3:25 PM EDT 05/07/2025 5:39 PM EDT us Stan Fletcher MD LAB BLOOD ORDERABLES Final Result Performing Organization Address [facility] Co de Phone Number [facility] [address] [place] [phone] * (ABNORMAL) Ferritin (05/07/2025 3:25 PM EDT) Ferritin 619(H) 20 - 250 ng/mL [facility] Blood Venous blood specimen / Unknown 05/07/2025 3:25 PM EDT 05/07/2025 5:39 PM EDT us Stan Fletcher MD LAB BLOOD ORDERABLES Final Result Performing Organization Address [facility] de Phone Number [facility] [address] [place] [phone] * (ABNORMAL) ALT (05/05/2025 11:40 AM EDT) Alanine Aminotransferase 72(H) 0 - 40 U/L [facility] 05/05/2025 11:4 0 AM EDT 05/05/2025 11:40 AM EDT us Generic External Data Provider LAB BLOOD ORDERAB LES Final Result Performing Organization Address [facility] de Phone Number [facility] [address] [place] [address] [phone] * (ABNORMAL) AST (05/05/2025 11:40 AM EDT) Aspartate Amino Transferase 49(H) 5 - 37 U/L [facility] 05/05/2025 11:4 0 AM EDT 05/05/2025 11:40 AM EDT Generic External Data Provider LAB BLOOD ORDERAB LES Final Result Performing Organization Address [facility] Co de Phone Number [facility] [address] [place] [address] [phone] * (ABNORMAL) Basic Metabolic Panel (05/05/2025 11:40 AM EDT) Sodium 142 135 - 145 mmol/L [facility] Potassium 4.4 3.3 - 5.1 mmol/L [facility] Chloride 108 96 - 108 mmol/L [facility] Carbon Dioxide 27 22 - 29 mmol/L [facility] Anion Gap 11(L) 12 - 20 [facility] Urea Nitrogen (BUN) 32(H) 9 - 16 mg/dL [facility] Creatinine, Serum 1.41(H) 0.5 - 1.4 mg/dL [facility] Estimated Glomerular Filt Rate 51 [facility] Comment:Chronic Kidney Disea se: Estimated GFR < 60 mL/min/1.39y2Dbcucx Kidney Disease: Estimated GFR < 15 mL/min/1.73m2 Glucose 100 60 - 115 mg/dL [facility] Calcium 9.4 8.4 - 10.2 mg/dL [facility] 05/05/2025 11:4 0 AM EDT 05/05/2025 11:40 AM EDT us Generic External Data Provider LAB BLOOD ORDERAB LES Final Result Performing Organization Address [facility]/ZIP Co de Phone Number [facility] [address] [place] [phone] [phone] * Glucose, Whole Blood (05/05/2025 10:14 AM EDT) Glucose, Whole Blood 78 60 - 115 mg/dL [facility] Comment:METER #: [id number] Testing performed in the Endocrinology Department [address] , [address], [facility]. 05/05/2025 10:1 4 AM EDT 05/05/2025 10:17 AM EDT us Generic External Data Provider LAB BLOOD ORDERAB LES Final Result [facility] [address] [place] [phone] * (ABNORMAL) POCT HGB A1C (04/22/2025 [...] Media Lot # [id number] Lot# Expiration Date 595 Comment:random Blood Capillary blood specimen / Unknown 04/22/2025 4:07 PM EDT us Stan Fletcher MD POINT OF CARE TEST ENTER/ED IT ORDERABLES Final Result * (ABNORMAL) Lipid Panel, Standard (11/12/2024 11:34 AM EDT) Triglycerides 176(H) <150 mg/dL [facility] Comment:Desirable Triglyceri de: less than 150 mg/dLBorderline High Triglyceride 150-199 mg/dLHigh Triglyceride: 200-499 mg/dLVery High Triglyceride: greater than or equal to 5OO mg/dL Cholesterol 116 <200 mg/dL [facility] Comment:Desirable Cholestero l: less than 200 mg/dLBorderline High Cholesterol: 200-239 mg/dLHigh Cholesterol: greater than 239 mg/dL LDL Cholesterol Calculated 49 <100 mg/dL [facility] Comment:Desirable LDL: less than 100 mg/dLNear Optimal/Above Optimal LDL: 110- 129 mg/dLBorderline High LDL: 130-159 mg/dLHigh LDL: 160-189 mg/dLVery High LDL: greater than or equal to 190 mg/dL HDL Cholesterol 32(L) >40 mg/dL [facility] Comment:Desirable HDL: great er than 40 mg/dL Note: This HDL assay may give artificially low results in patients with liver disease. Blood Venous blood specimen / Unknown 11/12/2024 11:34 AM EDT 11/12/2024 2:15 PM EDT us Stan Fletcher MD LAB BLOOD ORDERABLES Final Result Performing Organization Address [facility] Co de Phone Number [facility] [address] [place] [phone] * Diabetes Eye Exam (11/11/2024 4:01 PM EDT) us Historical Provider HEALTH MAINTENANCE Final Result * Albumin, Random Urine W/Creatinine (11/05/2024 10:17 AM EDT) Creatinine, Urine 98.24 mg/dL [facility] Microalbumin Urine 20.0 mg/L [facility] Microalbum Creatinine Ratio Ur 20.3 <30 ug/mg cr [facility] Comment:Albumin/Creatinine R atio Reference Ranges: Normal: < 30 ug/mg creatinine Microalbuminuria: 30 - 300 ug/mg creatinineClinical Albuminuria: > 300 ug/mg creatinine Urine (Urine, Random) 11/05/2024 10:17 AM EDT 11/05/2024 2:07 PM EDT us Stan Fletcher MD LAB URINE ORDERABLES Final Result Performing Organization Address [facility]/ZIP Co de Phone Number [facility] [address] [place] [phone] [phone] * (ABNORMAL) Cologuard?? colon cancer screening (12/06/2023 7:58 AM EDT) Cologuard Result Positive( A) Negative 12/13/2023 5:48 PM EDT [facility] (CLIA #:[id number]) Comment: POSITIVE TEST RESULT. A positive Cologuard [...] (Saritha Otto al, N Engl J Med 2014;370(14):2018-4029.) Cologuard may produce a false negative or false positive result (no colorectal cancer or precancerous polyp present at colonoscopy follow up). A negative Cologuard test result does not guarantee the absence of CRC or advanced adenoma (pre-cancer). The current Cologuard screening interval is every 3 years. ([employer] Society and U.S. Multi-Society Task Force). Cologuard performance data in a 10,000 patient pivotal study using colonoscopy as the reference method can be accessed at the following location: [email or web address]. Additional description of the Cologuard test process, warnings and precautions can be found at [email or web address]. Stool specimen (specimen) Rectal contents / Unknown 12/06/2023 7:58 AM EDT 12/07/2023 10:55 AM EDT us Stan Fletcher MD LAB MOLECULAR DIAGNOSTICS O RDERABLES Final Result [facility] (CLIA #:[id number]) [address] [place] [address], from Last 3 Months or Most Recently Relevant to Health Maintenance Insurance [address] [facility] DUAL COMPLETE HMO [facility] [address] [place], [place] [facility] [address] [place] [address] [facility] [address] [place] [address] Care Teams Frit Coater Relationship Specialty Start Date End Date Stan Fletcher MD [address] [place] [phone] PCP - General Internal Medicine 08/20/18
--- OUTSIDE RECORDS SUMMARY | 2025-05-19 08:50 | XMS_ITS | Encounter Summary ---
Author Organization [facility] Address [address] [place] [address] Care Team Providers Care Student Success Advisor Name Role Phone Stan Fletcher MD Primary Care Provider [phone] Reason for Visit * Reason Comments Med Refill Encounter Details Date Type Department Care Team ([facility] Contact Info) Description 03/20/2023 Refill [facility] [address] [place] [address] Stan Fletcher MD [address] [place] [address] Type 2 diabetes mellitus with hyperglycemia, with long-term current use of insulin ([facility]) Social History Tobacco Use Types Packs/Day Years [...] Upcoming Encounters Date Type Department Care Team ([facility] Contact Info) Description 06/12/2025 10:00 AM EDT Clinical Support [facility] [address] [place] [address] documented as of this encounter Visit Diagnoses Diagnosis Type 2 diabetes mellitus with hyperglycemia, with long-term current use of insulin ([facility]) documented in this encounter Care Teams Student Success Advisor Relationship Specialty Start Date End Date Stan Fletcher MD [address] [place] [phone] PCP - General Internal Medicine 08/20/18 documented as of this encounter
--- OUTSIDE RECORDS SUMMARY | 2025-05-19 08:50 | XMS_ITS | Encounter Summary ---
Author Organization [employer] Address [address] [facility] 7 [place] [address] Care Team Providers Care Meter Mechanic Name Role Phone Stan Fletcher MD Primary Care Provider [phone] Reason for Visit * Reason Onset Date Comments Nurse Triage 02/13/2025 Encounter Details Date Type Department Care Team ([facility] st Contact Info) Description 02/13/2025 Telephone [facility] [address] [place] [address] Stan Fletcher MD [address] [place], [place] [phone] Nurse Triage Social History Tobacco Use Types [...] 10:22 AM EDT Called pt. Via [phone] employment consultant. Pt states that he was prescribed Aspirin 10mg every [place] ago in the [place] and he stopped taking it in December [...] acuity questions The caller accepted this outcome. [phone] (Sign Language) documented in this encounter Plan of Treatment Upcoming Encounters Date Type Department Care Team (Late st Contact Info) Description 06/12/2025 10:00 AM EDT Clinical Support [facility] [address] [place] [address] documented as of this encounter Visit Diagnoses Not on filedocumented in this encounter Additional Health Concerns Assessment Noted Time PHQ-9 Depression Total Score: 0 11/06/19 25 9:29 AM EDT documented as of this encounter Care Teams Meter Mechanic Relationship Specialty Start Date End Date Stan Fletcher MD [address] [place] [address] PCP - General Internal Medicine 08/20/18 documented as of this encounter
--- OUTSIDE RECORDS SUMMARY | 2025-05-19 08:50 | XMS_ITS | Encounter Summary ---
Author Organization [employer] Address [address] [facility] 7 [place] [address] Care Team Providers Care Inventory Assistant Name Role Phone Stan Fletcher MD Primary Care Provider [phone] Reason for Visit * Reason Onset Date Comments Med Refill 11/05/2023 Encounter Details Date Type Department Care Team ([facility] st Contact Info) Description 11/05/2023 Telephone [facility] [address] [place] [address] Stan Fletcher MD [address] [place], [place] [phone] Med Refill Social History Tobacco Use Types [...] CENTER requesting scripts for Continuous Blood Gluc [employer] (FreeStyle Cathryn 2 [place]) device ,Continuous Blood Gluc Sensor (FreeStyle Cathryn 2 Sensor) misc and Precision Anjel Test Stripsit can be Faxed to [phone] documented in this encounter Plan of Treatment Upcoming Encounters Date Type Department Care Team (Late st Contact Info) Description 06/12/2025 10:00 AM EDT Clinical Support [facility] [address] [place] [address] documented as of this encounter Visit Diagnoses Not on filedocumented in this encounter Care Teams Inventory Assistant Relationship Specialty Start Date End Date Stan Fletcher MD [address] [place] [address] PCP - General Internal Medicine 08/20/18 documented as of this encounter
--- OUTSIDE RECORDS SUMMARY | 2025-05-19 08:50 | XMS_ITS | Encounter Summary ---
Author Organization [employer] Address [address] [place] [address] Care Team Providers Care Paster Hat Lining Name Role Phone Stan Fletcher MD Primary Care Provider [phone] Reason for Referral * Consultation (Routine) - Canceled Specialty Diagnoses / Procedures Referred By Contac t Referred To Contact Endocrinology Diagnoses Type 2 diabetes mellitus without complication, with long-term current use of insulin ([facility]) Stan Fletcher MD [address] [place] [address] Phone: tel: fax: Referral ID Status Reason Start Date Expiration Date Visits Requested Visits Authorized [id number] Canceled Specialty Services Required 02/13/2025 02/13/2026 1 1 Encounter Details Date Type Department Care Team ([facility] Contact Info) Description 02/13/2025 Orders Only [facility] [address] [place] [address] Stan Fletcher MD [address] [place] [address] Type 2 diabetes mellitus without complication, with [...] EDT Clinical Support [facility] [address] [place] [address] Scheduled Referrals Name Type Priority Associated Diagnoses Order Schedule Referral to Endocrinology Outpatient Referral Routine Type 2 diabetes mellitus without complication, with long-term current use of insulin ([facility]) Expected: 02/13/2025 (Approximate), Expires: 02/13/2026 documented as of this encounter Visit Diagnoses Diagnosis Type 2 diabetes mellitus without complication, with long-term current use of insulin ([facility])- Primary documented in this encounter Additional Health Concerns Assessment Noted Time PHQ-9 Depression Total Score: 0 11/06/19 25 9:29 AM EDT documented as of this encounter Care Teams Paster Hat Lining Relationship Specialty Start Date End Date Stan Fletcher MD [address] [place] [phone] PCP - General Internal Medicine 08/20/18 documented as of this encounter
--- OUTSIDE RECORDS SUMMARY | 2025-05-19 08:50 | XMS_ITS | Encounter Summary ---
Author Organization [employer] Address [address] [place] [address] Care Team Providers Care Real Estate Subagent Name Role Phone Stan Fletcher MD Primary Care Provider [phone] Reason for Referral * Consultation (Routine) - Closed Specialty Diagnoses / Procedures Referred By Contac t Referred To Contact Endocrinology Diagnoses Diabetes mellitus due to underlying condition with hyperglycemia, with long-term current use of insulin (HCC) Stan Fletcher MD [address] [place] [address] Phone: tel: fax: [facility] Endocrinology [address] [place] [address] Phone: tel: fax: Referral ID Status Reason Start Date Expiration Date V isits Requested Visits Authorized [id number] Closed Specialty Services Required 12/18/2024 12/18/2025 1 1 Encounter Details Date Type Department Care Team (Late st Contact Info) Description 12/10/2024 Orders Only [facility] PEDS [address] [place] [address] Stan Fletcher MD [address] [place] [address] Type 2 diabetes mellitus without complication, with [...] Description 06/12/2025 10:00 AM EDT Clinical Support [facility] [address] [place] [address] Scheduled Referrals Name Type Priority Associated Diagnoses [...] EDT) Sodium 140 135 - 145 mmol/L [facility] Potassium 4.9 3.3 - 5.1 mmol/L [facility] Chloride 109(H) 96 - 108 mmol/L [facility] Carbon Dioxide 24 22 - 29 mmol/L [facility] Anion Gap 12 12 - 20 [facility] Urea Nitrogen (BUN) 47(H) 9 - 16 mg/dL [facility] Creatinine, Serum 1.46(H) 0.5 - 1.4 mg/dL [facility] Estimated Glomerular Filt Rate 49 [facility] Comment:Chronic Kidney Disea se: Estimated GFR < 60 mL/min/1.36t9Ixmkgm Kidney Disease: Estimated GFR < 15 mL/min/1.73m2 Glucose 87 60 - 115 mg/dL [facility] Calcium 9.5 8.4 - 10.2 mg/dL [facility] Blood Venous blood specimen / Unknown 02/10/2025 10:40 AM EDT 02/10/2025 1:58 PM EDT us Stan Fletcher MD LAB BLOOD ORDERABLES Final Result [facility] [address] [place] [address] [phone] documented in this encounter Visit Diagnoses [...] documented as of this encounter Care Teams Real Estate Subagent Relationship Specialty Start Date End Date Stan Fletcher MD [address] [place] [address] PCP - General Internal Medicine 08/20/18 documented as of this encounter
--- OUTSIDE RECORDS SUMMARY | 2025-05-19 08:50 | XMS_ITS | Encounter Summary ---
Author Organization [employer] Address [address] [place] [address] 7 [place] [address] Care Team Providers Care Benefits Specialist Recruiter Name Role Phone Stan Fletcher MD Primary Care Provider [phone] Encounter Details Date Type Department Care Team ([facility] Contact Info) Description 07/16/2023 Orders Only [facility] MED & PEDS [address] [place], [place] [phone] Stan Fletcher MD [address] [place] [address] Social History Tobacco Use Types Packs/Day Years [...] Encounters Date Type Department Care Team ([facility] Contact Info) Description 06/12/2025 10:00 AM EDT Clinical Support [facility] MED & [facility]ED[facility] [address] [place], [place] [phone] documented as of this encounter Procedures Procedure Name Priority Date/Time Associated Diagnosis Comments MR SHOULDER WO CONTRAST LEFT Routine 08/07/2023 8:15 AM EST documented in this encounter Results * MR Shoulder w/o Contrast Left (08/07/2023 8:15 AM EST) Anatomical Region Laterality Modality Upper Extremities, Shoulder Left Magn etic Resonance 08/07/2023 8:15 AM EST Narrative 08/07/2023 3:29 PM EST [address] [address] Magnetic Resonance Report Signed Patient: Nick Escobar MR#: [id number] : 1960 Acct:[id number] Age/Sex: 62 / M ADM Date: 08/07/23 Loc: HO.MRI Attending Dr: Eddie Lawler MD Ordering Physician: Eddie Lawler MD Date of Service: 08/07/23 Procedure(s): MR shoulder LT wo con Accession Number(s): [id number] cc: Stan Fletcher MD; Eddie Lawler MD EXAMINATION: MR SHOULDER WITHOUT CONTRAST, LEFT CLINICAL INFORMATION: Posterior left shoulder and arm pain since 06/23/2023. Impingement syndrome. COMPARISON: Left shoulder radiographs dated 06/26/2023. TECHNIQUE: MRI of the shoulder was performed using routine sequences on a high-field scanner. FINDINGS: ROTATOR CUFF: Czuz-ji-zlsfdsgw supraspinatus tendinosis with anterior bursal surface fraying [...] MR/MR shoulder LT wo con IMPRESSION: 1. Aucx-ut-vcxhjicp supraspinatus tendinosis with anterior bursal surface fraying [...] in OV> 08/07/23 1526 DD/ 0815 TD/TT: Telephone Lineworker: Procedure Note Donotuseinterpreter, Image - 08/07/2023 [place] [address] Magnetic Resonance Report Signed Patient: Nick EscobarMR#: [id number] : 1960Acct:[id number] Age/Sex: 62 / MADM Date: 08/07/23 Loc: HO.MRI Attending Dr: Eddie Lawler MD Ordering Physician: Eddie Lawler MD Date of Service: 08/07/23 Procedure(s): MR shoulder LT wo con Accession Number(s): [id number] cc: Stan Fletcher MD; Eddie Lawler MD EXAMINATION: MR SHOULDER WITHOUT CONTRAST, LEFT CLINICAL INFORMATION: Posterior left shoulder and arm pain since 06/23/2023. Impingement syndrome. COMPARISON: Left shoulder radiographs dated 06/26/2023. TECHNIQUE: MRI of the shoulder was performed using routine sequences on a high-field scanner. FINDINGS: ROTATOR CUFF: Nrca-vn-ugwdlmky supraspinatus tendinosis with anterior bursal surface fraying [...] MR/MR shoulder LT wo con IMPRESSION: 1. Nqkz-fv-flypdedq supraspinatus tendinosis with anterior bursal surface fraying [...] in OV> 08/07/23 1526 DD/ 0815 TD/TT: Telephone Lineworker: [facility] External Provider IMG MRI PROCEDURES Final Result documented in this encounter Visit Diagnoses Not on filedocumented in this encounter Care Teams Benefits Specialist Recruiter Relationship Specialty Start Date End Date Stan Fletcher MD [address] [place] [address] PCP - General Internal Medicine 08/20/18 documented as of this encounter
--- OUTSIDE RECORDS SUMMARY | 2025-05-19 08:50 | XMS_ITS | Encounter Summary ---
Author Organization [employer] Address [address] [place] [address] 7 [place] [address] Care Team Providers Care Belt Tender Name Role Phone Stan Fletcher MD Primary Care Provider [phone] Reason for Visit * Reason Comments Med Refill Encounter Details Date Type Department Care Team ([facility] Contact Info) Description 02/23/[address] [facility] [address] [place], [place] [phone] Stan Fletcher MD [address] [place] [address] Right sided sciatica Social History Tobacco Use [...] Upcoming Encounters Date Type Department Care Team ([facility] st Contact Info) Description 06/12/2025 10:00 AM EDT Clinical Support [facility] [address] [place] [address] documented as of this encounter Visit Diagnoses Diagnosis Right sided sciatica Sciatica documented in this encounter Additional Health Concerns Assessment Noted Time PHQ-9 Depression Total Score: 0 11/06/19 25 9:29 AM EDT documented as of this encounter Care Teams Belt Tender Relationship Specialty Start Date End Date Stan Fletcher MD [address] [place] [address] PCP - General Internal Medicine 08/20/18 documented as of this encounter
--- OUTSIDE RECORDS SUMMARY | 2025-05-19 08:50 | XMS_ITS | Encounter Summary ---
Author Organization [employer] Address [address] [place] [address] [address] [address] Care Team Providers Care Channel Opener Outsoles Name Role Phone Stan Fletcher MD Primary Care Provider [phone] Reason for Referral * Consultation (Routine) - Closed Specialty Diagnoses / Procedures Referred By Contac t Referred To Contact Gastroenterology Diagnoses Positive colorectal cancer screening using Cologuard test Stan Fletcher MD [address] [place] [address] Phone: tel: fax: Neli Jaeger MD [address] [place] [address] Phone: tel: fax: Referral ID Status Reason Start Date Expiration Date V isits Requested Visits Authorized [id number] Closed Specialty Services Required 12/14/2023 12/13/2024 1 1 Encounter Details Date Type Department Care Team ([facility] Contact Info) Description 12/14/2023 Orders Only [facility] [address] [place], [place] [phone] Stan Fletcher MD [address] [place], [place] [phone] Positive colorectal cancer screening using Cologuard test [...] 10:00 AM EDT Clinical Support [facility] MED & PEDS [address] [place] [address] Scheduled Referrals Name Type Priority Associated Diagnoses [...] documented as of this encounter Care Teams Channel Opener Outsoles Relationship Specialty Start Date End Date Stan Fletcher MD [address] [place] [address] PCP - General Internal Medicine 08/20/18 documented as of this encounter
--- OUTSIDE RECORDS SUMMARY | 2025-05-19 08:50 | XMS_ITS | Encounter Summary ---
Author Organization [employer] Address [address] [place] [address] 7 [place] [address] Care Team Providers Care Developmental Psychologist Name Role Phone Stan Fletcher MD Primary Care Provider [phone] Encounter Details Date Type Department Care Team ([facility] Contact Info) Description 12/07/2022 Orders Only [facility] MED [facility] PEDS [address] [place], [place] [phone] Stan Fletcher MD [address] [place] [address] Palpitations (Primary Dx) Social History Tobacco Use [...] Upcoming Encounters Date Type Department Care Team ([facility] Contact Info) Description 06/12/2025 10:00 AM EDT Clinical Support [facility] MED & PEDS [address] [place] [address] documented as of this encounter Visit Diagnoses Diagnosis Palpitations- Primary documented in this encounter Care Teams Developmental Psychologist Relationship Specialty Start Date End Date Stan Fletcher MD [address] [place] [address] PCP - General Internal Medicine 08/20/18 documented as of this encounter
--- OUTSIDE RECORDS SUMMARY | 2025-05-19 08:50 | XMS_ITS | Encounter Summary ---
Author Organization [facility] Address [address] [place] [address] 7 [place] [address] Care Team Providers Care Manager Skilled Name Role Phone Stan Fletcher MD Primary Care Provider [phone] Encounter Details Date Type Department Care Team ([facility] Contact Info) Description 08/03/2022 Telephone [facility] MED & PEDS [address] [place] [address] Stan Fletcher MD [address] [place] [address] Social History Tobacco Use Types Packs/Day Years [...] 10:00 AM EDT Clinical Support [facility] MED & PEDS [address] [place] [address] documented as of this encounter Visit Diagnoses Not on filedocumented in this encounter Care Teams Manager Skilled Relationship Specialty Start Date End Date Stan Fletcher MD [address] [place] [address] PCP - General Internal Medicine 08/20/18 documented as of this encounter
--- OUTSIDE RECORDS SUMMARY | 2025-05-19 08:50 | XMS_ITS | Encounter Summary ---
Author Organization [employer] Address [address] [place] [address] 7 [place] [address] Care Team Providers Care Returned Materials Inspector Name Role Phone Stan Fletcher MD Primary Care Provider [phone] Reason for Visit * Reason Onset Date Comments Nurse Triage 08/23/2023 Encounter Details Date Type Department Care Team ([facility] st Contact Info) Description 08/23/2023 Telephone [facility] [address] [place], [place] [phone] Stan Fletcher MD [address] [place], [place] [phone] Nurse Triage Social History Tobacco Use Types [...] 3:50 PM EST Called pt. Back via agronomy technician #[id number]. Called pt. Asked him if he has any Covid tests at home to test himself for Covid. Pt. States he has a test at home but, he currently at Pharmacy picking up some OTC cough medicine. I will call pt. Back at 430pm to see what Covid test result is as pt. States he lives [place] [address] from [facility]. Called pt. Back via agronomy technician #[id number]. Pt. Took Covid test and it came out Negative. Pt. ShowedASL call center professional over video and she states that only the control line is showing and only 1 line on home Covid test. Advised pt. That per Dr. Fletcher he would like pt. To go to Walk in at [facility] tomorrow 08/23/2023 in the am to get his lungs listened to and to assess left lung congestion. Pt. States understanding and will go to walk in at [facility] at 830am when walk in opens. * Telephone Encounter - Vivi Salazar RN - 08/23/2023 2:53 PM EST Called pt. Back via agronomy technician. Mill Roll Rewinder #[phone]. Pt. States that he has a productive [...] accepted this outcome Please contact pt @ [phone] Sign Language documented in this encounter Plan of Treatment Upcoming Encounters Date Type Department Care Team ([facility] st Contact Info) Description 06/12/2025 10:00 AM EDT Clinical Support [facility] MED & PEDS [address] [place] [address] documented as of this encounter Visit Diagnoses Not on filedocumented in this encounter Care Teams Returned Materials Inspector Relationship Specialty Start Date End Date Stan Fletcher MD [address] [place] [address] PCP - General Internal Medicine 08/20/18 documented as of this encounter
--- OUTSIDE RECORDS SUMMARY | 2025-05-19 08:50 | XMS_ITS | Encounter Summary ---
Author Organization [employer] Address [address] [place] [address] 7 [place] [address] Care Team Providers Care Oceanographer Assistant Name Role Phone Stan Fletcher MD Primary Care Provider [phone] Reason for Visit * Reason Onset Date Comments Results 05/14/2025 Encounter Details Date Type Department Care Team ([facility] Contact Info) Description 05/14/2025 Telephone [facility]EDS [address] [place], [place] [phone] Stan Fletcher MD [address] [place] [address] Results Social History Tobacco Use Types Packs/Day [...] done: 05/12 Facility: [facility] Contact pt at [phone] (sign language) documented in this encounter Plan of Treatment Upcoming Encounters Date Type Department Care Team (Late st Contact Info) Description 06/12/2025 10:00 AM EDT Clinical Support [facility] MED & PEDS [address] [place], [place] [phone] documented as of this encounter Visit Diagnoses Not on filedocumented in this encounter Additional Health Concerns Assessment Noted Time PHQ-9 Depression Total Score: 0 11/06/19 9:29 AM EDT documented as of this encounter Care Teams Oceanographer Assistant Relationship Specialty Start Date End Date Stan Fletcher MD [address] [place], [place] [phone] PCP - General Internal Medicine 08/20/18 documented as of this encounter
== END 2025-05-18 08:32 | disposition home or self-care (01) ==
LOC: HO.HOSX 08:31
PROVIDERS: Visit Provider Physician Assistant
DX: M16.12 Unilateral primary osteoarthritis, left hip (principal); M70.61 Trochanteric bursitis, right hip; E11.9 Type 2 diabetes mellitus without complications
CPT/HCPCS: 20610; 73502; 99212; J0665; J1100; J2003

== ENCOUNTER 2025-05-18 09:35 | Outpatient (AMB) | payer MEDICARE, MEDICAID, SELFPAY ==
--- OUTSIDE RECORDS SUMMARY | 2025-05-15 10:15 | XMS_ITS | Encounter Summary ---
Author Organization [employer] Address [address] [facility] 7t [place] [address] Care Team Providers Care Mercerizer Machine Operator Name Role Phone Stan Fletcher MD Primary Care Provider [phone] Reason for Visit * Reason Comments Immunizations Encounter Details Date Type Department Care Team (Latest Contact Info) Description 05/15/2025 10:15 AM EDT Clinical Support [facility] MED & PEDS [address] [place] [address] Chreyl Melendez RN Encounter for immunization Social History Tobacco Use Types Packs/Day Years [...] t he electric, gas, oil or water [employer] threatened to shut off services in your [...] AM EDT documented as of this encounter Progress Notes * Cheryl Melendez RN - 05/15/2025 10:15 AM EDT S: Nick Escobar is here for Immunizations Preferred language for medical information: Congolese Sign Language Nick Escobar denies feeling sick today. Upon review of the electronic health record there isno contraindication for receiving the Hepatitis B vaccine today. Bee pollen, Denture adhesive, Wound dressing adhesive, Prednisone, Simvastatin, and Sulfa antibiotics O: Hepatitis B 0.5ml, administered to left deltoid. Injection was tolerated well. No adverse reaction noted. A copy of the VIS informational sheet was provided and Nick Escobar was advised to wait 15 minutes post vaccination for monitoring of adverse reactions. Immunization History Administered Date(s) Administered HepB-CpG 05/15/2025 Influenza Injectable Quadrivalant Preservative Free IIV4 MDCK 06/25/2021, 04/20/2022, 07/19/2023 Influenza injectable quadrivalent IIV4 with preservative 06/28/2016, 06/03/2019 Influenza injectable quadrivalent preservative free 05/30/2017, 07/29/2018, 05/01/2020 Influenza, IIV3, injectable 05/03/2010, 04/18/2011 Influenza, Injectable, MDCK, preservative free 04/25/2024 Influenza, Recombinant, injectable, preservative free 04/05/2025 Influenza, Split (incl. purified surface antigen) 06/10/2012 Moderna Covid-19 Vaccine 12+ 11/14/2020, 12/19/2020, 07/18/2021, 08/23/2023 Moderna Covid-19 Vaccine 6+ Bivalent 06/10/2022 Pfizer Covid-19 Vaccine 12+ 05/02/2025 Pneumococcal Conjugate PCV 20 07/26/2023 Pneumococcal Polysaccharide PPSV23 06/03/2019 RSV Adjuvant 04/25/2024 Tdap 10/20/2015 Zoster, Recombinant 11/23/2021, 01/24/2022 A: Encounter for Immunization P: Nick Escobar to follow up as needed. Cheryl Melendez RN documented in this encounter Plan of Treatment Upcoming Encounters Date Type Department Care Team ([facility] Contact Info) Description 06/12/2025 10:00 AM EDT Clinical Support [facility] MED & PEDS [address] [place] [address] documented as of this encounter Visit Diagnoses Diagnosis Encounter for immunization documented in this encounter Additional Health Concerns Assessment Noted Time PHQ-9 Depression Total Score: 0 11/06/19 25 9:29 AM EDT documented as of this encounter Care Teams Mercerizer Machine Operator Relationship Specialty Start Date End Date Stan Fletcher MD [address] [place] [address] PCP - General Internal Medicine 08/20/18 documented as of this encounter
--- NOTE | 2025-05-18 10:03 | MHC.OFFVIS ---
Vital Signs 05/18/25 10:21 Height 5 ft 8 in Weight 198 lb BMI 30.1 Intake Visit Reasons: NewProb-Right Hip Pain Intake Note: Nick is a 63 year old male who presents today as an established patient, new problem visit to evaluate right hip pain. Patient reports he believes having an injection to his right hip about 9 years ago. His pain has been present for a couple of months ago, that is located at the lateral aspect of hip. He complains of discomfort with sleeping and walking. No recent treatment. Denies injury. Patient was recently seen for left hip and trochanteric bursa injection on 10/17/24. Instructional Design Consultant Required: Yes Instructional Design Consultant Services: Instructional Design Consultant Present Instructional Design Consultant Name: Kate Abebe LM Allergies bee pollen (BEE STINGS) Allergy (Severe, Verified 05/18/25 10:13) SWELLING and facial swelling Sulfa (Sulfonamide Antibiotics) (SULFA (SULFONAMIDE ANTIBIOTICS)) Allergy (Severe, Verified 05/18/25 10:13) swelling, hives acetaminophen (From Percocet) Allergy (Verified 05/18/25 10:13) Palpitations orange juice Allergy (Verified 05/18/25 10:13) Blister oxycodone (From Percocet) Allergy (Verified 05/18/25 10:13) Palpitations prednisone Allergy (Verified 05/18/25 10:13) heart palpitation, raises glucose levels simvastatin Allergy (Verified 05/18/25 10:13) Hives adhesive Adverse Reaction (Intermediate, Verified 05/18/25 10:13) Rash, burning, from EKG stickers HPI HPI NewProb-Right Hip Pain: Details: 64 yo male returns to the office today for right hip pain. He last saw me in sep 2024 for his left hip, he had an injection which was helpful. Now, he states the right hip is uncomfortable. He believes he had an injection in the right hip approx 9 years ago. He has pain on the right side while sleeping at night. He has pain and stiffness first thing in the morning. He denies groin pain. He denies n/t that goes down to the foot. He states he not had PT for either hips. [facility] Medical History (Updated 05/18/25 @ 10:44 by Noemi Nguyen PA-C) Controlled type 2 diabetes mellitus with insulin therapy Palpitations Chest pain Back pain Wears dentures Chronic pain syndrome Personal history of COVID-19 Hx of renal calculi Elevated cholesterol HTN (hypertension) Seasonal allergies Deaf Diabetes Surgical History Hx of shoulder surgery H/O colonoscopy Hx of lumbar discectomy History of carpal tunnel surgery of left wrist (03/27/24) History of lumbar surgery (12/25/22) S/P placement of nerve stimulator Hx of cholecystectomy History of right inguinal hernia repair (~12/29/19) History of lithotripsy History of bilateral inguinal hernia repair Family History Mother History of lung cancer Social History Household Members: Significant Other Housing: Apartment Are you a primary child care group leader to a significant other at home: No Do you presently have visiting nurse or other home services: No 75 years or older and lives alone: No Alcohol intake: current Alcohol intake frequency: does not drink Patient Tobacco Use Status: Never used Tobacco e-Cigarette/Vaping Use: Never Used Advance Directives Date on File: 12/27/22 service: No Current occupational status: employed Current occupation: [employer] Review of Systems Const All systems reviewed & are unremarkable except as noted in HPI and below Physical Exam Vital Signs: BMI result Body Mass Index 30.1 Const General: cooperative and no acute distress Orientation/consciousness: patient oriented x3 Resp Effort & Inspection: normal respiratory effort and able to speak in complete sentences Cardio Peripheral pulses: Peripheral pulses 2+ throughout Neuro General: patient oriented x3 Extrem Other: Right hip normal to inspection. No pain with ROM of the hip. Pain along the greater trochanter. No pain with hip flexion or abduction.There is tenderness along the si joint, Negative SLR. NVI. Office Procedures AMB Joint Injection/Aspiration Joint Injection/Aspiration Details: Right trochanteric bursa Prep: site was prepped using aseptic technique, ethochloride spray was applied and injection warnings given Injected: 40 mg of, with 3 mL of, 1% plain lidocaine, 0.25% bupivacaine and decadron Procedure: The patient tolerated the procedure well and there was some relief with the local anesthesia Coding 56209 - Glenohumeral/Tronchanteric Bursa/Intraarticular Procedure code (CPT) selection complete Results Reviewed Results Reviewed: XR hip LT min 2V IMPRESSION: Mild osteoarthrosis left hip without acute fracture or dislocation. Mild to moderate osteoarthrosis right hip. Assessment & Plan Assessment & Plan (1) Trochanteric bursitis, right hip: Code(s): M70.61 - Trochanteric bursitis, right hip Category: Medical Plan: We discussed options today, which include steroid injection. The patient did consent to move forward with the injection, which was tolerated well.? I recommended rest, ice and elevation and OTC antiinflammatories prn for discomfort. If symptoms persist over the next 6-8 weeks, they will contact our office, otherwise, prn We also discussed their diabetes and the effect the steroid can have on thier blood glucose levels; therefore, they will continue to monitor these very closely over the next 72 hours Orders: Orders XR hip RT min 2V Today M25.551 - Pain in right hip Coding Level of Care Code Est Pt Level 3 (97089) Complex EM visit Add On G2211 Diagnoses Trochanteric bursitis, right hip M70.61 CPT Codes Coding - Joint 7: 13789 - Glenohumeral/Tronchanteric Bursa/Intraarticular ([id number])
[2025-05-18 10:21] VITALS: BMI 30.1
--- OUTSIDE RECORDS SUMMARY | 2025-05-18 10:26 | XMS_ITS | Encounter Summary ---
Author Organization [employer] [facility] Address [address] [place] [address] 7 [place] [address] Care Team Providers Care Combination Window Installer Name Role Phone Stan Fletcher MD Primary Care Provider [phone] Encounter Details Date Type Department Care Team ([facility] Contact Info) Description 08/03/2022 Telephone [facility] MED & PEDS [address] [place] [address] Stan Fletcher MD [address] [place] [address] Social History Tobacco Use Types Packs/Day Years [...] Department Care Team (Late Contact Info) Description 06/12/2025 10:00 AM EDT Clinical Support [facility] MED & PEDS [address] [place] [address] documented as of this encounter Visit Diagnoses Not on filedocumented in this encounter Care Teams Combination Window Installer Relationship Specialty Start Date End Date Stan Fletcher MD [address] [place] [address] PCP - General Internal Medicine 08/20/18 documented as of this encounter
--- OUTSIDE RECORDS SUMMARY | 2025-05-18 10:26 | XMS_ITS | Encounter Summary ---
Author Organization [employer] [facility] Address [address] [place] [address] Care Team Providers Care Media Reporter Name Role Phone Stan Fletcher MD Primary Care Provider [phone] Reason for Visit * Reason Comments Med Refill Encounter Details Date Type Department Care Team ([facility] Contact Info) Description 08/29/2022 Refill [facility] MED & PEDS [address] [place] [address] Stan Fletcher MD [address] [place] [address] Chronic pain syndrome Social History Tobacco Use [...] Upcoming Encounters Date Type Department Care Team ([facility] Contact Info) Description 06/12/2025 10:00 AM EDT Clinical Support [facility] MED & PEDS [address] [place], [place] [phone] documented as of this encounter Visit Diagnoses Diagnosis Chronic pain syndrome documented in this encounter Care Teams Media Reporter Relationship Specialty Start Date End Date Stan Fletcher MD [address] [place], [place] [phone] PCP - General Internal Medicine 08/20/18 documented as of this encounter
--- OUTSIDE RECORDS SUMMARY | 2025-05-18 10:26 | XMS_ITS | Encounter Summary ---
Author Organization [employer] Address [address] [place] [address] 7 [place] [address] Care Team Providers Care White Spooler Name Role Phone Stan Fletcher MD Primary Care Provider [phone] Reason for Visit * Reason Onset Date Comments Durable Medical Equipment 01/26/2023 Encounter Details Date Type Department Care Team ([facility] Contact Info) Description 01/26/2023 Telephone [facility] CHC MED & PEDS [address] [place], [place] [phone] Stan Fletcher MD [address] [place] [address] Durable Medical Equipment Social History Tobacco Use [...] CCA. For clarification, please contact pt at [phone] (Sign language) documented in this encounter Plan of Treatment Upcoming Encounters Date Type Department Care Team (Late st Contact Info) Description 06/12/2025 10:00 AM EDT Clinical Support [facility]C MED & PEDS [address] [place] [address] documented as of this encounter Visit Diagnoses Diagnosis Type 2 diabetes mellitus without complication, with long-term current use of insulin (HCC)- Primary documented in this encounter Care Teams White Spooler Relationship Specialty Start Date End Date Stan Fletcher MD [address] [place] [address] PCP - General Internal Medicine 08/20/18 documented as of this encounter
--- OUTSIDE RECORDS SUMMARY | 2025-05-18 10:26 | XMS_ITS | Encounter Summary ---
Author Organization [employer] Address [address] [facility] 7t [place] [address] Care Team Providers Care Scientist Propagator Name Role Phone Stan Fletcher MD Primary Care Provider [phone] Encounter Details Date Type Department Care Team ([facility] Contact Info) Description 11/12/2024 Orders Only [facility] [address] [place] [address] ProviderMarcelle MD Social History Tobacco Use Types [...] ([facility] st Contact Info) Description 06/12/2025 10:00 AM EDT Clinical Support [facility] MED & PEDS [address] [place] [address] documented as of this encounter Procedures Procedure [...] documented as of this encounter Care Teams Scientist Propagator Relationship Specialty Start Date End Date Stan Fletcher MD [address] [place] [address] PCP - General Internal Medicine 08/20/18 documented as of this encounter
--- OUTSIDE RECORDS SUMMARY | 2025-05-18 10:26 | XMS_ITS | Encounter Summary ---
Author Organization [employer] Address [address] [facility] 7 [place] [address] Care Team Providers Care Operations Label Clerk Name Role Phone Stan Fletcher MD Primary Care Provider [phone] Reason for Visit * Reason Onset Date Comments Med Refill 11/05/2023 Encounter Details Date Type Department Care Team ([facility] st Contact Info) Description 11/05/2023 Telephone [facility] MEDICINE [address] [place] [address] Stan Fletcher MD [address] [place], [place] [phone] Med Refill Social History Tobacco Use Types [...] EDT Tc from [facility] at [facility] requesting scripts for Continuous Blood Gluc Form Block Maker (FreeStyle Cathryn 2 [place]) device ,Continuous Blood Gluc Sensor (FreeStyle Cathryn 2 Sensor) misc and Precision Anjel Test Stripsit can be Faxed to [phone] documented in this encounter Plan of Treatment Upcoming Encounters Date Type Department Care Team (Late st Contact Info) Description 06/12/2025 10:00 AM EDT Clinical Support [facility] MED & PEDS [address] [place] [address] documented as of this encounter Visit Diagnoses Not on filedocumented in this encounter Care Teams Operations Label Clerk Relationship Specialty Start Date End Date Stan Fletcher MD [address] [place] [address] PCP - General Internal Medicine 08/20/18 documented as of this encounter
--- OUTSIDE RECORDS SUMMARY | 2025-05-18 10:26 | XMS_ITS | Encounter Summary ---
Author Organization [employer] Address [address] [facility] [address] [place] [address] Care Team Providers Care Fruit Culler Name Role Phone Stan Fletcher MD Primary Care Provider [phone] Encounter Details Date Type Department Care Team ([facility] Contact Info) Description 05/13/2025 Telephone [facility] MED & PEDS [address] [place], [place] [phone] Veronica Wooten, PharmD [address] [place] [address] Social History Tobacco Use Types Packs/Day Years [...] encounter Miscellaneous Notes * Telephone Encounter - Veronica Wooten PharmD - 05/13/2025 2:23 PM EDT FYI patient refuses CDTM, reports seeing endocrinology and has an appointment with them in the beginning of May to discuss implantable CGM. Referral has been closed documented in this encounter Plan of Treatment Upcoming Encounters Date Type Department Care Team (Late st Contact Info) Description 06/12/2025 10:00 AM EDT Clinical Support [facility] MED & PEDS [address] [place] [address] documented as of this encounter Visit Diagnoses Not on filedocumented in this encounter Additional Health Concerns Assessment Noted Time PHQ-9 Depression Total Score: 0 11/06/19 25 9:29 AM EDT documented as of this encounter Care Teams Fruit Culler Relationship Specialty Start Date End Date Stan Fletcher MD [address] [place] [address] PCP - General Internal Medicine 08/20/18 documented as of this encounter
--- OUTSIDE RECORDS SUMMARY | 2025-05-18 10:26 | XMS_ITS | Encounter Summary ---
Author Organization [employer] Address [address] [place] [address] Care Team Providers Care Content Management Specialist Name Role Phone tSan Fletcher MD Primary Care Provider [phone] Reason for Referral * Consultation (Routine) - Closed Specialty Diagnoses / Procedures Referred By Contac t Referred To Contact Endocrinology Diagnoses Diabetes mellitus due to underlying condition with hyperglycemia, with long-term current use of insulin (HCC) Stan Fletcher MD [address] [place] [address] Phone: tel: fax: [facility] [address] [place] [address] Phone: tel: fax: Referral ID Status Reason Start Date Expiration Date V isits Requested Visits Authorized [id number] Closed Specialty Services Required 12/18/2024 12/18/2025 1 1 Encounter Details Date Type Department Care Team (Late st Contact Info) Description 12/10/2024 Orders Only [facility] PEDS [address] [place] [address] Stan Fletcher MD 505 [place] [address] Type 2 diabetes mellitus without complication, with [...] Description 06/12/2025 10:00 AM EDT Clinical Support [facility] [address] [place] [address] Scheduled Referrals Name Type Priority Associated Diagnoses [...] EDT) Sodium 140 135 - 145 mmol/L [facility] Potassium 4.9 3.3 - 5.1 mmol/L [facility] Chloride 109(H) 96 - 108 mmol/L [facility] Carbon Dioxide 24 22 - 29 mmol/L [facility] Anion Gap 12 12 - 20 [facility] Urea Nitrogen (BUN) 47(H) 9 - 16 mg/dL [facility] Creatinine, Serum 1.46(H) 0.5 - 1.4 mg/dL [facility] Estimated Glomerular Filt Rate 49 [facility] Comment:Chronic Kidney Disea se: Estimated GFR < 60 mL/min/1.68z8Fuibre Kidney Disease: Estimated GFR < 15 mL/min/1.73m2 Glucose 87 60 - 115 mg/dL [facility] Calcium 9.5 8.4 - 10.2 mg/dL [facility] Blood Venous blood specimen / Unknown 02/10/2025 10:40 AM EDT 02/10/2025 1:58 PM EDT us Stan Fletcher MD LAB BLOOD ORDERABLES Final Result [facility] [address] [place] [address] [phone] documented in this encounter Visit Diagnoses Diagnosis Type 2 diabetes mellitus without complication, with long-term current use of insulin (HCC)- Primary Primary hypertension Unspecified essential hypertension Diabetes mellitus due to underlying condition with hyperglycemia, with long-term current use of insulin (HCC) documented in this encounter Additional Health Concerns Assessment Noted Time PHQ-9 Depression Total Score: 0 11/06/19 25 9:29 AM EDT documented as of this encounter Care Teams Content Management Specialist Relationship Specialty Start Date End Date Stan Fletcher MD [address] [place] [address] PCP - General Internal Medicine 08/20/18 documented as of this encounter
--- OUTSIDE RECORDS SUMMARY | 2025-05-18 10:26 | XMS_ITS | Encounter Summary ---
Author Organization [employer] Address [address] [place] [address] Care Team Providers Care Audio Operator Name Role Phone Stan Fletcher MD Primary Care Provider [phone] Encounter Details Date Type Department Care Team (Latest Contact Info) Description 05/15/2025 Travel Social History Tobacco Use Types Packs/Day [...] Upcoming Encounters Date Type Department Care Team ([facility] st Contact Info) Description 06/12/2025 10:00 AM EDT Clinical Support [facility] MED [facility]EDS [address] [place] [address] documented as of this encounter Visit Diagnoses Not on filedocumented in this encounter Additional Health Concerns Assessment Noted Time PHQ-9 Depression Total Score: 0 11/06/19 25 9:29 AM EDT documented as of this encounter Care Teams Audio Operator Relationship Specialty Start Date End Date Stan Fletcher MD [address] [place] [address] PCP - General Internal Medicine 08/20/18 documented as of this encounter
--- OUTSIDE RECORDS SUMMARY | 2025-05-18 10:26 | XMS_ITS | Encounter Summary ---
Author Organization [employer] Address [address] [place] [address] Care Team Providers Care Canal Boat Captain Name Role Phone Stan Fletcher MD Primary Care Provider [phone] Reason for Referral * Consultation (Routine) - Closed Specialty Diagnoses / Procedures Referred By Contac t Referred To Contact Gastroenterology Diagnoses Positive colorectal cancer screening using Cologuard test Stan Fletcher MD [address] [place] [address] Phone: tel: fax: Neli Jaeger MD [address] [place] [address] Phone: tel: fax: Referral ID Status Reason Start Date Expiration Date V isits Requested Visits Authorized [id number] Closed Specialty Services Required 12/14/2023 12/13/2024 1 1 Encounter Details Date Type Department Care Team ([facility] Contact Info) Description 12/14/2023 Orders Only [facility] MED & PEDS [address] [place], [place] [phone] Stan Fletcher MD 505 [place], [place] [phone] Positive colorectal cancer screening using Cologuard test [...] 06/12/2025 10:00 AM EDT Clinical Support [facility] MED & PEDS [address] [place] [address] Scheduled Referrals Name Type Priority Associated Diagnoses [...] documented as of this encounter Care Teams Canal Boat Captain Relationship Specialty Start Date End Date Stan Fletcher MD [address] [place] [address] PCP - General Internal Medicine 08/20/18 documented as of this encounter
--- OUTSIDE RECORDS SUMMARY | 2025-05-18 10:26 | XMS_ITS | Encounter Summary ---
Author Organization [employer] Address [address] [facility] 7 [place] [address] Care Team Providers Care Can Inspector Name Role Phone Stan Fletcher MD Primary Care Provider [phone] Reason for Visit * Reason Onset Date Comments Medication Question 04/29/2025 Encounter Details Date Type Department Care Team ([facility] Contact Info) Description 04/29/[address] [facility] CH[facility] MED & PEDS 505 [place], [place] [phone] Stan Fletcher MD 505 [place] [address] Medication Question Social History Tobacco Use Types [...] very loose stool . Contact pt at [phone] (sign language) documented in this encounter Plan of Treatment Upcoming Encounters Date Type Department Care Team ([facility] st Contact Info) Description 06/12/2025 10:00 AM EDT Clinical Support [facility] MED & PEDS 505 [place] [address] documented as of this encounter Visit Diagnoses Not on filedocumented in this encounter Additional Health Concerns Assessment Noted Time PHQ-9 Depression Total Score: 0 11/06/19 25 9:29 AM EDT documented as of this encounter Care Teams Can Inspector Relationship Specialty Start Date End Date Stan Fletcher MD [address] [place] [address] PCP - General Internal Medicine 08/20/18 documented as of this encounter
--- OUTSIDE RECORDS SUMMARY | 2025-05-18 10:26 | XMS_ITS | Encounter Summary ---
Author Organization [employer] Address [address] [place] [address] 7 [place] [address] Care Team Providers Care Comprehensive Ophthalmologist Name Role Phone Stan Fletcher MD Primary Care Provider [phone] Encounter Details Date Type Department Care Team ([facility] Contact Info) Description 07/16/2023 Orders Only [facility] MED & PEDS [address] [place], [place] [phone] Stan Fletcher MD [address] [place] [address] Social History Tobacco Use Types Packs/Day Years [...] ([facility] Contact Info) Description 06/12/2025 10:00 AM EDT Clinical Support [facility] MED & [facility]ED[facility] [address] [place], [place] [phone] documented as of this encounter Procedures Procedure Name Priority Date/Time Associated Diagnosis Comments MR SHOULDER WO CONTRAST LEFT Routine 08/07/2023 8:15 AM EST documented in this encounter Results * MR Shoulder w/o Contrast Left (08/07/2023 8:15 AM EST) Anatomical Region Laterality Modality Upper Extremities, Shoulder Left Magn etic Resonance 08/07/2023 8:15 AM EST Narrative 08/07/2023 3:29 PM EST [address] [address] Magnetic Resonance Report Signed Patient: Nick Escobar MR#: [id number] : 1960 Acct:[id number] Age/Sex: 62 / M ADM Date: 08/07/23 Loc: HO.MRI Attending Dr: Eddie Lawler MD Ordering Physician: Eddie Lawler MD Date of Service: 08/07/23 Procedure(s): MR shoulder LT wo con Accession Number(s): [id number] cc: Stan Fletcher MD; Eddie Lawler MD EXAMINATION: MR SHOULDER WITHOUT CONTRAST, LEFT CLINICAL INFORMATION: Posterior left shoulder and arm pain since 06/23/2023. Impingement syndrome. COMPARISON: Left shoulder radiographs dated 06/26/2023. TECHNIQUE: MRI of the shoulder was performed using routine sequences on a high-field scanner. FINDINGS: ROTATOR CUFF: Lavd-jx-jjwjumie supraspinatus tendinosis with anterior bursal surface fraying [...] MR/MR shoulder LT wo con IMPRESSION: 1. Ozmd-pm-yjrtlbhp supraspinatus tendinosis with anterior bursal surface fraying [...] in OV> 08/07/23 1526 DD/ 0815 TD/TT: Social Work Nurse: Procedure Note Donotuseinterpreter, Image - 08/07/2023 [place] [address] Magnetic Resonance Report Signed Patient: Nick EscobarMR#: [id number] : 1960Acct:[id number] Age/Sex: 62 / MADM Date: 08/07/23 Loc: HO.MRI Attending Dr: Eddie Lawler MD Ordering Physician: Eddie Lawler MD Date of Service: 08/07/23 Procedure(s): MR shoulder LT wo con Accession Number(s): [id number] cc: Stan Fletcher MD; Eddie Lawler MD EXAMINATION: MR SHOULDER WITHOUT CONTRAST, LEFT CLINICAL INFORMATION: Posterior left shoulder and arm pain since 06/23/2023. Impingement syndrome. COMPARISON: Left shoulder radiographs dated 06/26/2023. TECHNIQUE: MRI of the shoulder was performed using routine sequences on a high-field scanner. FINDINGS: ROTATOR CUFF: Qror-du-pnfohcoo supraspinatus tendinosis with anterior bursal surface fraying [...] MR/MR shoulder LT wo con IMPRESSION: 1. Qhxj-ik-nzvdtdqo supraspinatus tendinosis with anterior bursal surface fraying [...] in OV> 08/07/23 1526 DD/ 0815 TD/TT: Social Work Nurse: [facility] External Provider IMG MRI PROCEDURES Final Result documented in this encounter Visit Diagnoses Not on filedocumented in this encounter Care Teams Comprehensive Ophthalmologist Relationship Specialty Start Date End Date Stan Fletcher MD [address] [place] [address] PCP - General Internal Medicine 08/20/18 documented as of this encounter
--- OUTSIDE RECORDS SUMMARY | 2025-05-18 10:26 | XMS_ITS | Encounter Summary ---
Author Organization [employer] Address [address] [place] [address] 7 [place] [address] Care Team Providers Care Magnetic Prospecting Supervisor Name Role Phone Stan Fletcher MD Primary Care Provider [phone] Reason for Visit * Reason Onset Date Comments Nurse Triage 08/23/2023 Encounter Details Date Type Department Care Team ([facility] st Contact Info) Description 08/23/2023 Telephone [facility] MED & PEDS [address] [place], [place] [phone] Stan Fletcher MD [address] [place], [place] [phone] Nurse Triage Social History Tobacco Use Types [...] EST Called pt. Back via seismic interpreter #[id number]. Called pt. Asked him if he has any Covid tests at home to test himself for Covid. Pt. States he has a test at home but, he currently at Pharmacy picking up some OTC cough medicine. I will call pt. Back at 430pm to see what Covid test result is as pt. States he lives [place] [facility]. Called pt. Back via seismic interpreter #[id number]. Pt. Took Covid test and it came out Negative. Pt. ShowedASL translator/interpreter over video and she states that only the control line is showing and only 1 line on home Covid test. Advised pt. That per Dr. Fletcher he would like pt. To go to Walk in at [facility] tomorrow 08/23/2023 in the am to get his lungs listened to and to assess left lung congestion. Pt. States understanding and will go to walk in at [facility] at 830am when walk in opens. * Telephone Encounter - Vivi Salazar RN - 08/23/2023 2:53 PM EST Called pt. Back via seismic interpreter. Plant Utilities Engineer #[id number]. Pt. States that he has a productive [...] accepted this outcome Please contact pt @ [phone] Sign Language documented in this encounter Plan of Treatment Upcoming Encounters Date Type Department Care Team ([facility] st Contact Info) Description 06/12/2025 10:00 AM EDT Clinical Support [facility] MED & PEDS [address] [place] [address] documented as of this encounter Visit Diagnoses Not on filedocumented in this encounter Care Teams Magnetic Prospecting Supervisor Relationship Specialty Start Date End Date Stan Fletcher MD [address] [place] [address] PCP - General Internal Medicine 08/20/18 documented as of this encounter
--- OUTSIDE RECORDS SUMMARY | 2025-05-18 10:26 | XMS_ITS | Encounter Summary ---
Author Organization [employer] Address [address] [place] [address] 7 [place] [address] Care Team Providers Care Home Care Companion Name Role Phone Stan Fletcher MD Primary Care Provider [phone] Encounter Details Date Type Department Care Team ([facility] Contact Info) Description 06/27/2023 Orders Only [facility] MED & PEDS [address] [place], [place] [phone] Stan Fletcher MD [address] [place] [address] Acute pain of left shoulder (Primary Dx) [...] [facility] Contact Info) Description 06/12/2025 10:00 AM EDT Clinical Support [facility] MED & PEDS [address] [place], [place] [phone] documented as of this encounter Visit Diagnoses Diagnosis Acute pain of left shoulder- Primary documented in this encounter Care Teams Home Care Companion Relationship Specialty Start Date End Date Stan Fletcher MD [address] [place] [address] PCP - General Internal Medicine 08/20/18 documented as of this encounter
--- OUTSIDE RECORDS SUMMARY | 2025-05-18 10:26 | XMS_ITS | Encounter Summary ---
Author Organization [email or web address] [facility] Address [address] [place] [address] Care Team Providers Care Publishing Manager Name Role Phone Stan Fletcher MD Primary Care Provider [phone] Reason for Visit * Reason Comments Med Refill Encounter Details Date Type Department Care Team ([facility] Contact Info) Description 03/20/2023 Refill [facility] MED & PEDS [address] [place] [address] Stan Fletcher MD [address] [place] [address] Type 2 diabetes mellitus with hyperglycemia, with long-term current use of insulin ([facility]) Social History Tobacco Use Types Packs/Day [...] Team ([facility] Contact Info) Description 06/12/2025 10:00 AM EDT Clinical Support [facility] MED & PEDS [address] [place] [address] documented as of this encounter Visit Diagnoses Diagnosis Type 2 diabetes mellitus with hyperglycemia, with long-term current use of insulin ([facility]) documented in this encounter Care Teams Publishing Manager Relationship Specialty Start Date End Date Stan Fletcher MD [address] [place] [address] PCP - General Internal Medicine 08/20/18 documented as of this encounter
--- OUTSIDE RECORDS SUMMARY | 2025-05-18 10:26 | XMS_ITS | Encounter Summary ---
Author Organization [employer] Address [address] [place] [address] Care Team Providers Care Sales Attendant Building Materials Name Role Phone Stan Fletcher MD Primary Care Provider [phone] Reason for Referral * Imaging (Routine) - Authorized Specialty Diagnoses / Procedures Referred By Contac t Referred To Contact Radiology Diagnoses Decreased GFR Procedures US RENAL BI Stan Fletcher MD [address] [place] [address] Phone: tel: fax: [address] Phone: tel: fax: Referral ID Status Reason Start Date Expiration Date V isits Requested Visits Authorized [id number] Authorized 05/07/2025 05/07/2026 1 1 * Imaging (Routine) - Authorized Specialty Diagnoses / Procedures Referred By Contac t Referred To Contact Radiology Diagnoses Transaminitis Procedures US Abdomen Comp w elastography Stan Fletcher MD [address] [place] [address] Phone: tel: fax: [address] Phone: tel: fax: Referral ID Status Reason Start Date Expiration Date V isits Requested Visits Authorized [id number] Authorized 05/06/2025 05/06/2026 1 1 Encounter Details Date Type Department Care Team ([facility] st Contact Info) Description 05/05/2025 Orders Only [facility] MED & PEDS [address] [place] [address] Stan Fletcher MD [address] [place] [address] Transaminitis (Primary Dx); Decreased GFR Social History [...] Description 06/12/2025 10:00 AM EDT Clinical Support [facility] MED [facility] PEDS [address] [place] [address] Scheduled Orders Name Type Priority Associated Diagnoses [...] EDT) Iron 161(H) 45 - 160 mcg/dL [facility] Total Iron Binding Capacity 273 228 - 428 mcg/dL [facility] Percent Iron Saturation 59(H) 15 - 50 % [facility] Unsaturated Iron Binding 112 ug/dL [facility] Blood Venous blood specimen / Unknown 05/07/2025 3:25 PM EDT 05/07/2025 5:39 PM EDT us Stan Fletcher MD LAB BLOOD ORDERABLES Final Result Performing Organization Address [facility]/ZIP Co de Phone Number [facility] [address] [place] [phone] * (ABNORMAL) Ferritin (05/07/2025 3:25 PM EDT) Ferritin 619(H) 20 - 250 ng/mL [facility] Blood Venous blood specimen / Unknown 05/07/2025 3:25 PM EDT 05/07/2025 5:39 PM EDT us Stan Fletcher MD LAB BLOOD ORDERABLES Final Result Performing Organization Address [facility] de Phone Number [facility] [address] [place] [phone] * (ABNORMAL) Prothrombin Time-INR (05/07/2025 3:25 PM EDT) Prothrombin Time 14.0(H) 10.9 - 12.4 SEC [facility] INTERNATIONAL NORM RATIO 1.2(H) 0.9 - 1.1 [facility] Comment:INTERNATIONAL NORMAL IZED RATIO (INR) REFERENCE [...] BLOOD ORDERABLES Final Result Performing Organization Address [facility] Co de Phone Number [facility] [address] [place] [phone] * Immunoglobulins, Quantitative, IgA, IgG, IgM (05/07/2025 3:25 PM EDT) IMMUNOGLOBULIN G 982 600 - 1540 mg/dL [facility] IMMUNOGLOBULIN A 142 70 - 320 mg/dL [facility] Immunoglobulin M 86 50 - 300 mg/dL [facility] Comment:THIS TEST WAS PERFOR MED AT:[employer] [place] [phone] MANRIQUEZ MD Blood Venous blood specimen / Unknown 05/07/2025 3:25 PM EDT 05/07/2025 5:39 PM EDT us Stan Fletcher MD LAB BLOOD ORDERABLES Final Result Performing Organization Address [facility] Co de Phone Number [facility] [address] [place] [phone] documented in this encounter Visit Diagnoses Diagnosis Transaminitis- Primary Nonspecific elevation of levels of transaminase or lactic acid dehydrogenase (LDH) Decreased GFR documented in this encounter Additional Health Concerns Assessment Noted Time PHQ-9 Depression Total Score: 0 11/06/19 25 9:29 AM EDT documented as of this encounter Care Teams Sales Attendant Building Materials Relationship Specialty Start Date End Date Stan Fletcher MD [address] [place] [address] PCP - General Internal Medicine 08/20/18 documented as of this encounter
--- OUTSIDE RECORDS SUMMARY | 2025-05-18 10:26 | XMS_ITS | Encounter Summary ---
Author Organization [employer] Address [address] [place] [address] 7 [place] [address] Care Team Providers Care Disability Coordinator Name Role Phone Stan Fletcher MD Primary Care Provider [phone] Reason for Visit * Reason Onset Date Comments Results 05/14/2025 Encounter Details Date Type Department Care Team ([facility] Contact Info) Description 05/14/2025 Telephone [facility] MED & PEDS [address] [place], [place] [phone] Stan Fletcher MD [address] [place] [address] Results Social History Tobacco Use Types Packs/Day Years [...] Telephone Encounter - Cheryl Melendez RN - 05/14/2025 12:30 PM EDT Pt coming to clinic tomorrow for flu shot will review * Telephone Encounter - Fish French - 05/14/2025 12:22 PM EDT TC from pt requesting call back regarding Results. Type of results: Stool Date when done: 05/12 Facility: [facility] Contact pt at [phone] (sign language) documented in this encounter Plan of Treatment Upcoming Encounters Date Type Department Care Team (Late st Contact Info) Description 06/12/2025 10:00 AM EDT Clinical Support [facility] MED & PEDS [address] [place], [place] [phone] documented as of this encounter Visit Diagnoses Not on filedocumented in this encounter Additional Health Concerns Assessment Noted Time PHQ-9 Depression Total Score: 0 11/06/19 9:29 AM EDT documented as of this encounter Care Teams Disability Coordinator Relationship Specialty Start Date End Date Stan Fletcher MD [address] [place], [place] [phone] PCP - General Internal Medicine 08/20/18 documented as of this encounter
--- OUTSIDE RECORDS SUMMARY | 2025-05-18 10:26 | XMS_ITS | Encounter Summary ---
Author Organization [employer] Address [address] [place] [address] 7 [place] [address] Care Team Providers Care Rest Room Matron Name Role Phone Stan Fletcher MD Primary Care Provider [phone] Encounter Details Date Type Department Care Team ([facility] Contact Info) Description 08/23/2023 Orders Only [facility] MED & PEDS [address] [place] [address] Stan Fletcher MD [address] [place] [address] Social History Tobacco Use Types Packs/Day Years [...] Team ([facility] Contact Info) Description 06/12/2025 10:00 AM EDT Clinical Support [facility] MED & PEDS [address] [place] [address] documented as of this encounter Visit Diagnoses Not on filedocumented in this encounter Care Teams Rest Room Matron Relationship Specialty Start Date End Date Stan Fletcher MD [address] [place] [address] PCP - General Internal Medicine 08/20/18 documented as of this encounter
--- OUTSIDE RECORDS SUMMARY | 2025-05-18 10:27 | XMS_ITS | Encounter Summary ---
Author Organization [employer] Address [address] [place] [phone] Care Team Providers Care Cashier And Waiter/Waitress Name Role Phone Stan Fletcher MD Primary Care Provider [phone] Reason for Referral * Consultation (Routine) - Canceled Specialty Diagnoses / Procedures Referred By Contac t Referred To Contact Endocrinology Diagnoses Type 2 diabetes mellitus without complication, with long-term current use of insulin ([facility]) Stan Fletcher MD [address] [place] [address] Phone: tel: fax: Referral ID Status Reason Start Date Expiration Date Visits Requested Visits Authorized [id number] Canceled Specialty Services Required 02/13/2025 02/13/2026 1 1 Encounter Details Date Type Department Care Team ([facility] Contact Info) Description 02/13/2025 Orders Only [facility] MED & PEDS [address] [place] [address] Stan Fletcher MD [address] [place] [address] Type 2 diabetes mellitus without complication, with [...] 10:00 AM EDT Clinical Support [facility] MED & PEDS [address] [place] [address] Scheduled Referrals Name Type Priority Associated Diagnoses Order Schedule Referral to Endocrinology Outpatient Referral Routine Type 2 diabetes mellitus without complication, with long-term current use of insulin ([facility]/HCC) Expected: 02/13/2025 (Approximate), Expires: 02/13/2026 documented as of this encounter Visit Diagnoses Diagnosis Type 2 diabetes mellitus without complication, with long-term current use of insulin (HCC)- Primary documented in this encounter Additional Health Concerns Assessment Noted Time PHQ-9 Depression Total Score: 0 11/06/19 25 9:29 AM EDT documented as of this encounter Care Teams Cashier And Waiter/Waitress Relationship Specialty Start Date End Date Stan Fletcher MD [address] [place] [phone] PCP - General Internal Medicine 08/20/18 documented as of this encounter
--- OUTSIDE RECORDS SUMMARY | 2025-05-18 10:27 | XMS_ITS | Encounter Summary ---
Author Organization [employer] Address [address] [place] [address] 7 [place] [address] Care Team Providers Care Street Light Repairer Helper Name Role Phone Stan Fletcher MD Primary Care Provider [phone] Reason for Visit * Reason Comments Med Refill Encounter Details Date Type Department Care Team ([facility] Contact Info) Description 02/23/2025 Refill [facility] CHC MED & PEDS [address] [place], [place] [phone] Stan Fletcher MD [address] [place] [address] Right sided sciatica Social History Tobacco Use [...] Upcoming Encounters Date Type Department Care Team ([facility] st Contact Info) Description 06/12/2025 10:00 AM EDT Clinical Support [facility] CHC MED & PEDS [address] [place] [address] documented as of this encounter Visit Diagnoses Diagnosis Right sided sciatica Sciatica documented in this encounter Additional Health Concerns Assessment Noted Time PHQ-9 Depression Total Score: 0 11/06/19 25 9:29 AM EDT documented as of this encounter Care Teams Street Light Repairer Helper Relationship Specialty Start Date End Date Stan Fletcher MD [address] [place] [address] PCP - General Internal Medicine 08/20/18 documented as of this encounter
--- OUTSIDE RECORDS SUMMARY | 2025-05-18 10:27 | XMS_ITS | Clinical Summary ---
Author Organization [email or web address] Address [address] [place] [address] 7 [place] [address] Care Team Providers Care Roof Promenade Tile Setter Name Role Phone Stan Fletchre MD Primary Care Provider [phone] Allergies Active Allergy Reactions Criticality Noted Date [...] mL 11 2022 Active Continuous Blood Gluc Director Of Rehabilitation (FreeStyle Cathryn 2 [place]) deviceIndications:Type 2 diabetes mellitus without complication, with long-term current use of insulin ([facility]) To use daily 1 each 2022 Active Continuous Blood Gluc Sensor (FreeStyle Cathryn 2 Sensor) miscIndications:Type 2 diabetes mellitus without complication, with long-term current use of insulin ([facility]) To use daily 2 each 2022 Active loratadine (Claritin) 10 MG tablet [...] current use of insulin ([facility]) INJECT 12 UNITS SUBCUTANEOUSLY THREE TIMES [...] complication, with long-term current use of insulin ([facility]) Inject 12 Units as directed 3 times daily. 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 Do not crush or chew. 60 capsule 11 2023 Active Continuous Glucose Director Of Rehabilitation (FreeStyle Cathryn 2 [place]) deviceIndications:Type 2 diabetes mellitus without complication, with long-term current use of insulin ([facility]) Scan sensor every 8 hours 1 each 2023 Active Continuous Glucose Sensor (FreeStyle Cathryn 2 Sensor) miscIndications:Type 2 diabetes mellitus without complication, with long-term current use of insulin ([facility]) Apply 1 sensor every 14 days 2 each 2023 Active atorvastatin (Lipitor) 40 MG tabletIndications:Pure hypercholesterolemia TAKE ONE TABLET EVERY MORNING 30 tablet 11 2023 Active Lantus SoloStar 100 UNIT/ML pen INJECT 60 UNITS SUBCUTANEOUSLY ONCE DAILY 30 mL 2023 Active TechLite Pen [place] 32G X 6 MM misc USE FOUR TIMES DAILY] 100 each 2023 Active gabapentin (Neurontin) 300 MG capsule TAKE ONE CAPSULE THREE TIMES DAILY 180 capsule 2024 Active nabumetone (Relafen) 750 MG tabletIndications:Acut e pain of left shoulder TAKE ONE TABLET TWICE DAILY 60 tablet 2024 Active gabapentin (Neurontin) 400 MG capsuleIndications: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 90 capsule 11/05 Active losartan (Cozaar) 100 MG tabletIndications:Prim janeth hypertension Take 1 tablet (100 mg) by mouth Once per day. 30 tablet 11 11/05 Active hydroCHLOROthiazide 12.5 MG tabletIndications:Prim janeth hypertension Take 1 tablet (12.5 mg) by mouth Once per day. 30 tablet 11 12/10 Active oxyCODONE-acetaminophe n (Percocet) 7.5-325 MG [...] SUBCUTANEOUSLY THREE TIMES DAILY 15 mL 11 2024 Active glipiZIDE (Glucotrol) 5 MG tablet TAKE ONE TABLET THREE TIMES DAILY BEFORE A MEAL 270 tablet 3 2024 Active tiZANidine (Zanaflex) 4 MG tabletIndications:Righ t sided sciatica TAKE ONE TABLET BY MOUTH EVERY 6 TO 8 HOURS NEEDED. DO NOT EXCEED THREE TABLETS PER 24 HOURS. 60 tablet 2024 Active SITagliptin (Januvia) 100 MG tabletIndications:Type 2 diabetes mellitus without complication, with long-term current use of insulin ([facility]) Take 1 tablet (100 mg) by mouth Once per day. 90 tablet 3 2024 Active metoprolol succinate XL (Toprol XL) 25 MG 24 hr tabletIndications:Prim janeth hypertension Take 1 tablet (25 mg) by mouth Once per day. Do not crush or chew. 30 tablet 11 04/22 Active glucose blood (OneTouch Ultra) test stripIndications:Type 2 diabetes mellitus without complication, with long-term current use of insulin ([facility]) To use 2 times a day 100 strip 11 2024 Active hydrocortisone 0.5 % cream Apply [...] Encounters Date Type Department Care Team Description 05/15/2025 10:15 AM EDT Clinical Support [facility] MED & PEDS [address] [place] [address] Cheryl Melendez RN Encounter for immunization 05/15/2025 Travel 05/14/2025 Telephone [facility] MED & PEDS [address] [place] [address] Stan Fletcher MD Results 05/13/2025 Telephone [facility] MED & PEDS [address] [place] [address] Veronica Wooten, PharmD 05/12/[address] [address] Stan Fletcher MD 05/12/2025 Travel 05/08/2025 Telephone [facility] MED & PEDS [address] [place] [address] Stan Fletcher MD Appointment Request 05/08/2025 Results Follow-Up [address] [address] Gloria Tyson RN Prothrombin Time-INR, Ferritin, Iron And Total Iron Binding Capacity 05/07/2025 2:45 PM EDT Office Visit [facility] MED & PEDS [address] [place] [address] Stan Fletcher MD Diarrhea, unspecified type (Primary Dx); Primary hypertension; Type 2 diabetes mellitus without complication, with long-term current use of insulin ([facility]); Transaminitis; Irritant contact dermatitis due to other agents; Primary insomnia 05/07/2025 Results Follow-Up [facility] MED & PEDS [address] [place] [address] Cheryl Melendez RN Glucose, Whole Blood, Basic Metabolic Panel, AST, ALT 05/07/2025 Travel 05/07/2025 Telephone [facility] MED & PEDS [address] [place] [address] Stan Fletcher MD Nurse Triage 05/06/2025 Telephone [facility] MED & PEDS [address] [place] [address] Stan Mojica MD Call Back Request; fyi 05/05/2025 Orders Only [facility] MED & PEDS [address] [place] [address] Stan Fletcher MD Transaminitis (Primary Dx); Decreased GFR 05/05/2025 Orders Only GENERIC EXTERNAL DATA DEPARTMENT Provider, Generic External Data 04/29/2025 Telephone [facility] MED & PEDS [address] [place] [address] Stan Fletcher MD Medication Question 04/22/2025 2:15 PM EDT Office Visit [facility] MED & PEDS [address] [place] [address] Stan Fletcher MD Type 2 diabetes mellitus without complication, with long-term current use of insulin ([facility]) (Primary Dx); Primary hypertension; Right hip pain 04/22/2025 Travel 04/21/2025 Telephone [facility] MED & PEDS [address] [place] [address] Stan Fletcher MD Chart Prep 04/21/[address] [address] Stan Fletcher MD Nurse Triage 03/30/2025 Telephone [facility] MED & PEDS [address] [place] [address] Stan Fletcher MD Med Refill 03/19/[address] [address] Stan Fletcher MD Appointment Request 03/16/2025 Telephone [facility] MED & PEDS [address] [place] [address] Stan Fletcher MD Medication Question 03/04/2025 Telephone [facility] MED & PEDS [address] [place] [address] Stan Fletcher MD Medication Question 03/03/[address] [address] Stan Fletcher MD Nurse Triage 03/02/2025 Refill [facility] MED & PEDS [address] [place] [address] Stan Fletcher MD Right sided sciatica 02/25/2025 Telephone [facility] MED & PEDS [address] [place] [address] Stan Fletcher MD Referral 02/24/2025 Telephone [facility] MEDICINE [address] [place] [address] Stan Fletcher MD Appointment Request 02/23/2025 Telephone [facility] CHC MED & PEDS [address] [place] [address] Stan Fletcher MD Medication Question 02/23/2025 Refill [facility] CHC MED & PEDS [address] [place] [address] Stan Fletcher MD Right sided sciatica from Last 3 Months Immunizations Immunization Administration Dates Next Due HepB-CpG 05/15/2025 Influenza Injectable Quadriv alant Preservative Free IIV4 [...] Description 06/12/2025 10:00 AM EDT Clinical Support [facility] MED & PEDS [address] [place] [address] Health Maintenance Due Date Last Done Comments CT Colonography 1962 Colonoscopy 1962 FIT 1962 Sigmoidoscopy 1962 FOBT 12/05/2024 12/06/2023 Hepatitis B Vaccines (2 of 2 - CpG 2-dose series) 06/12/2025 05/15/2025 DTaP/Tdap/Td Vaccines (2 - Td or Tdap) [...] use of insulin ([facility]) POCT GLUCOSE Routine 04/22/2025 4:07 PM EDT Type 2 diabetes mellitus without complication, with long-term current use of insulin ([facility]) LIPID PANEL, STANDARD Routine 11/12/2024 11:34 AM [...] PM EDT) Hepatitis A IgM Nonreactive Nonreactive [facility] Comment:IgM antibodies to AVERY V not detected; does not exclude earlyacute or recovered HAV infection. ~Hepatitis B Surface Antibody NONREACTIVE Nonreactive [facility] Comment:Nonreactive: < 8.00 mIU/mL Hepatitis B Core Antibody Nonreactive Nonreactive [facility] Hepatitis C Antibody Nonreactive Nonreactive [facility] Comment:Antibodies to HCV no t detected; does not exclude early acuteHCV infection. Hepatitis B Surface Ag Negative Negative [facility] Blood Venous blood specimen / Unknown 05/07/2025 3:25 PM EDT 05/07/2025 5:39 PM EDT us Stan Fletcher MD LAB BLOOD ORDERABLES Final Result [facility] [address] [place] [address] [phone] * (ABNORMAL) Iron And Total Iron Binding Capacity (05/07/2025 3:25 PM EDT) Iron 161(H) 45 - 160 mcg/dL [facility] Total Iron Binding Capacity 273 228 - 428 mcg/dL [facility] Percent Iron Saturation 59(H) 15 - 50 % [facility] Unsaturated Iron Binding 112 ug/dL [facility] Blood Venous blood specimen / Unknown 05/07/2025 3:25 PM EDT 05/07/2025 5:39 PM EDT us Stan Fletcher MD LAB BLOOD ORDERABLES Final Result Performing Organization Address [facility]/ZIP Co de Phone Number [facility] [address] [place] [address] [phone] * (ABNORMAL) Prothrombin Time-INR (05/07/2025 3:25 PM EDT) Prothrombin Time 14.0(H) 10.9 - 12.4 SEC [facility] INTERNATIONAL NORM RATIO 1.2(H) 0.9 - 1.1 [facility] Comment:INTERNATIONAL NORMAL IZED RATIO (INR) [...] BLOOD ORDERABLES Final Result Performing Organization Address City/[facility]/ZIP Co de Phone Number [facility] [address] [place] [phone] * Immunoglobulins, Quantitative, IgA, IgG, IgM (05/07/2025 3:25 PM EDT) IMMUNOGLOBULIN G 982 600 - 1540 mg/dL [facility] IMMUNOGLOBULIN A 142 70 - 320 mg/dL [facility] Immunoglobulin M 86 50 - 300 mg/dL [facility] Comment:THIS TEST WAS PERFOR MED AT:[facility] [place] [phone] MANRIQUEZ MD Blood Venous blood specimen / Unknown 05/07/2025 3:25 PM EDT 05/07/2025 5:39 PM EDT us Stan Fletcher MD LAB BLOOD ORDERABLES Final Result Performing Organization Address [facility] Co de Phone Number [facility] [address] [place] [phone] * (ABNORMAL) Ferritin (05/07/2025 3:25 PM EDT) Ferritin 619(H) 20 - 250 ng/mL [facility] Blood Venous blood specimen / Unknown 05/07/2025 3:25 PM EDT 05/07/2025 5:39 PM EDT us Stan Fletcher MD LAB BLOOD ORDERABLES Final Result Performing Organization Address [facility] de Phone Number [facility] [address] [place] [phone] * (ABNORMAL) ALT (05/05/2025 11:40 AM EDT) Alanine Aminotransferase 72(H) 0 - 40 U/L [facility] 05/05/2025 11:4 0 AM EDT 05/05/2025 11:40 AM EDT us Generic External Data Provider LAB BLOOD ORDERAB LES Final Result Performing Organization Address [facility] de Phone Number [facility] [address] [place] [phone] * (ABNORMAL) AST (05/05/2025 11:40 AM EDT) Aspartate Amino Transferase 49(H) 5 - 37 U/L [facility] 05/05/2025 11:4 0 AM EDT 05/05/2025 11:40 AM EDT Generic External Data Provider LAB BLOOD ORDERAB LES Final Result Performing Organization Address [facility] Co de Phone Number [facility] [address] [place] [phone] * (ABNORMAL) Basic Metabolic Panel (05/05/2025 11:40 AM EDT) Sodium 142 135 - 145 mmol/L [facility] Potassium 4.4 3.3 - 5.1 mmol/L [facility] Chloride 108 96 - 108 mmol/L [facility] Carbon Dioxide 27 22 - 29 mmol/L [facility] Anion Gap 11(L) 12 - 20 [facility] Urea Nitrogen (BUN) 32(H) 9 - 16 mg/dL [facility] Creatinine, Serum 1.41(H) 0.5 - 1.4 mg/dL [facility] Estimated Glomerular Filt Rate 51 [facility] Comment:Chronic Kidney Disea se: Estimated GFR < 60 mL/min/1.70e9Dnbixn Kidney Disease: Estimated GFR < 15 mL/min/1.73m2 Glucose 100 60 - 115 mg/dL [facility] Calcium 9.4 8.4 - 10.2 mg/dL [facility] 05/05/2025 11:4 0 AM EDT 05/05/2025 11:40 AM EDT us Generic External Data Provider LAB BLOOD ORDERAB LES Final Result Performing Organization Address [facility]/ZIP Co de Phone Number [facility] [address] [place] [phone] [phone] * Glucose, Whole Blood (05/05/2025 10:14 AM EDT) Glucose, Whole Blood 78 60 - 115 mg/dL [facility] Comment:METER #: [id number] Testing performed in the Endocrinology Department [address] , [address], [facility]. 05/05/2025 10:1 4 AM EDT 05/05/2025 10:17 AM EDT us Generic External Data Provider LAB BLOOD ORDERAB LES Final Result [facility] [address] [place] [phone] [phone] * (ABNORMAL) POCT HGB A1C (04/22/2025 4:07 PM EDT) Hemoglobin A1C 6.7(A) 4.0 - 5.7 % QC Media Lot # [id number] Lot# Expiration Date Blood 04/22/2025 4:07 PM EDT us Stan Fletcher MD POINT OF CARE TEST ENTER/ED IT ORDERABLES Final Result * (ABNORMAL) POCT Glucose (04/22/2025 4:07 PM EDT) Glucose Blood, POC 248(A) 60 - 200 mg/dL QC Media Lot # [id number] Lot# Expiration Date 511 Comment:random Blood Capillary blood specimen / Unknown 04/22/2025 4:07 PM EDT us Stan Fletcher MD POINT OF CARE TEST ENTER/ED IT ORDERABLES Final Result * (ABNORMAL) Lipid Panel, Standard (11/12/2024 11:34 AM EDT) Triglycerides 176(H) <150 mg/dL [facility] Comment:Desirable Triglyceri de: less than 150 mg/dLBorderline High Triglyceride 150-199 mg/dLHigh Triglyceride: 200-499 mg/dLVery High Triglyceride: greater than or equal to 5OO mg/dL Cholesterol 116 <200 mg/dL [facility] Comment:Desirable Cholestero l: less than 200 mg/dLBorderline High Cholesterol: 200-239 mg/dLHigh Cholesterol: greater than 239 mg/dL LDL Cholesterol Calculated 49 <100 mg/dL [facility] Comment:Desirable LDL: less than 100 mg/dLNear Optimal/Above Optimal LDL: 110- 129 mg/dLBorderline High LDL: 130-159 mg/dLHigh LDL: 160-189 mg/dLVery High LDL: greater than or equal to 190 mg/dL HDL Cholesterol 32(L) >40 mg/dL [facility] Comment:Desirable HDL: great er than 40 mg/dL Note: This HDL assay may give artificially low results in patients with liver disease. Blood Venous blood specimen / Unknown 11/12/2024 11:34 AM EDT 11/12/2024 2:15 PM EDT us Stan Fletcher MD LAB BLOOD ORDERABLES Final Result Performing Organization Address [facility] Co de Phone Number [facility] [address] [place] [phone] * Diabetes Eye Exam (11/11/2024 4:01 PM EDT) us Historical Provider HEALTH MAINTENANCE Final Result * Albumin, Random Urine W/Creatinine (11/05/2024 10:17 AM EDT) Creatinine, Urine 98.24 mg/dL [facility] Microalbumin Urine 20.0 mg/L [facility] Microalbum Creatinine Ratio Ur 20.3 <30 ug/mg cr [facility] Comment:Albumin/Creatinine R atio Reference Ranges: Normal: < 30 ug/mg creatinine Microalbuminuria: 30 - 300 ug/mg creatinineClinical Albuminuria: > 300 ug/mg creatinine Urine (Urine, Random) 11/05/2024 10:17 AM EDT 11/05/2024 2:07 PM EDT us Stan Fletcher MD LAB URINE ORDERABLES Final Result Performing Organization Address [facility]/ZIP Co de Phone Number [facility] [address] [place] [phone] * (ABNORMAL) Cologuard?? colon cancer screening (12/06/2023 7:58 AM EDT) Cologuard Result Positive( A) Negative 12/13/2023 5:48 PM EDT [facility] (CLIA #:[id number]) Comment: POSITIVE TEST RESULT. A positive Cologuard [...] (Saritha Otto al, N Engl J Med 2014;370(14):4839-6792.) Cologuard may produce a false negative or false positive result (no colorectal cancer or precancerous polyp present at colonoscopy follow up). A negative Cologuard test result does not guarantee the absence of CRC or advanced adenoma (pre-cancer). The current Cologuard screening interval is every 3 years. ([place] [employer] and U.S. Multi-Society Task Force). Cologuard performance data in a 10,000 patient pivotal study using colonoscopy as the reference method can be accessed at the following location: [email or web address].[email or web address] [email or web address]/results. Additional description of the Cologuard test process, warnings and precautions can be found at www.colAdlogixrd.com. Stool specimen (specimen) Rectal contents / Unknown 12/06/2023 7:58 AM EDT 12/07/2023 10:55 AM EDT us Stan Fletcher MD LAB MOLECULAR DIAGNOSTICS O RDERABLES Final Result [facility] (CLIA #:[id number]) [address] [place] [address], from Last 3 Months or Most Recently Relevant to Health Maintenance Insurance [address] PENDING SALE TO [facility] DUAL COMPLETE HMO [facility] [address] [place], [place] [facility] [address] [place] [id number] [facility] [address] [place] [id number] Care Teams Roof Promenade Tile Setter Relationship Specialty Start Date End Date Stan Fletcher MD [address] [place] [phone] PCP - General Internal Medicine 08/20/18
--- OUTSIDE RECORDS SUMMARY | 2025-05-18 10:27 | XMS_ITS | Encounter Summary ---
Author Organization [employer] Address [address] [facility] 7 [place] [address] Care Team Providers Care Equine Dentist Name Role Phone Stan Fletcher MD Primary Care Provider [phone] Reason for Visit * Reason Onset Date Comments Nurse Triage 02/13/2025 Encounter Details Date Type Department Care Team ([facility] st Contact Info) Description 02/13/[address] 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 Pt states that he was prescribed Aspirin 10mg every am a long time ago in the [facility] and he stopped taking it in December [...] acuity questions The caller accepted this outcome. [phone] (Sign Language) documented in this encounter Plan of Treatment Upcoming Encounters Date Type Department Care Team (Late st Contact Info) Description 06/12/2025 10:00 AM EDT Clinical Support [facility] CHC MED & PEDS [address] [place] [address] documented as of this encounter Visit Diagnoses Not on filedocumented in this encounter Additional Health Concerns Assessment Noted Time PHQ-9 Depression Total Score: 0 11/06/19 25 9:29 AM EDT documented as of this encounter Care Teams Equine Dentist Relationship Specialty Start Date End Date Stan Fletcher MD [address] [place] [address] PCP - General Internal Medicine 08/20/18 documented as of this encounter
--- OUTSIDE RECORDS SUMMARY | 2025-05-18 10:27 | XMS_ITS | Encounter Summary ---
Author Organization [employer] Address [address] [place] [address] [place] [address] Care Team Providers Care Producer Assistant Name Role Phone Stan Fletcher MD Primary Care Provider [phone] Reason for Visit * Reason Comments Med Refill Encounter Details Date Type Department Care Team ([facility] Contact Info) Description 01/09/2023 Refill [facility] MED & PEDS [address] [place] [address] Stan Fletcher MD [address] [place] [address] Social History Tobacco Use Types Packs/Day Years [...] ([facility] Contact Info) Description 06/12/2025 10:00 AM EDT Clinical Support [facility] MED & PEDS [address] [place] [address] documented as of this encounter Visit Diagnoses Not on filedocumented in this encounter Care Teams Producer Assistant Relationship Specialty Start Date End Date Stan Fletcher MD [address] [place] [address] PCP - General Internal Medicine 08/20/18 documented as of this encounter
--- OUTSIDE RECORDS SUMMARY | 2025-05-18 10:27 | XMS_ITS | Encounter Summary ---
Author Organization [employer] Address [address] [facility] 7 [place] [address] Care Team Providers Care Alliance Director Name Role Phone Stan Fletcher MD Primary Care Provider [phone] Reason for Visit * Reason Onset Date Comments Medication Question 03/16/2025 Encounter Details Date Type Department Care Team ([facility] Contact Info) Description 03/16/2025 Telephone [facility] CHC MED & PEDS [address] [place], [place] [phone] Stan Fletcher MD 505 [place] [address] Medication Question Social History Tobacco Use Types [...] Pt stated it issmaller. Contact pt at [phone] (ASL) documented in this encounter Plan of Treatment Upcoming Encounters Date Type Department Care Team (Late st Contact Info) Description 06/12/2025 10:00 AM EDT Clinical Support [facility] MED & PEDS [address] [place] [address] documented as of this encounter Visit Diagnoses Not on filedocumented in this encounter Additional Health Concerns Assessment Noted Time PHQ-9 Depression Total Score: 0 11/06/19 25 9:29 AM EDT documented as of this encounter Care Teams Alliance Director Relationship Specialty Start Date End Date Stan Fletcher MD [address] [place] [address] PCP - General Internal Medicine 08/20/18 documented as of this encounter
--- OUTSIDE RECORDS SUMMARY | 2025-05-18 10:27 | XMS_ITS | Encounter Summary ---
Author Organization [employer] Address [address] [place] [address] 7 [place] [address] Care Team Providers Care Circular Head Saw Operator Name Role Phone Stan Fletcher MD Primary Care Provider [phone] Encounter Details Date Type Department Care Team ([facility] Contact Info) Description 12/07/2022 Orders Only [facility] MED & PEDS [address] [place] [address] Stan Fletcher MD [address] [place] [address] Palpitations (Primary Dx) Social History Tobacco Use [...] Upcoming Encounters Date Type Department Care Team ([facility] Contact Info) Description 06/12/2025 10:00 AM EDT Clinical Support [facility] MED & PEDS [address] [place] [address] documented as of this encounter Visit Diagnoses Diagnosis Palpitations- Primary documented in this encounter Care Teams Circular Head Saw Operator Relationship Specialty Start Date End Date Stan Fletcher MD [address] [place] [address] PCP - General Internal Medicine 08/20/18 documented as of this encounter
== END 2025-05-18 11:10 | disposition home or self-care (01) ==
LOC: HO.HOS 09:36
PROVIDERS: Visit Provider Physician Assistant
DX: M70.61 Trochanteric bursitis, right hip (principal)
CPT/HCPCS: 20610; 99213

== ENCOUNTER → 2025-05-18 09:42 | Outpatient (BNV) | payer MEDICARE, MEDICAID, SELFPAY | PROVIDERS: Visit Provider Radiology Diagnostic Radiology | DX: M16.11 Unilateral primary osteoarthritis, right hip (principal) | CPT/HCPCS: 73502 ==

== ENCOUNTER 2025-05-21 14:09 | Outpatient (AMB) | payer MEDICARE, MEDICAID, SELFPAY ==
--- NOTE | 2025-05-21 14:29 | A.SPINEOV_ITS ---
Intake Visit Reasons: discuss return to work and give him final FMLA Intake Note: Mr. Escobar is here today to Discuss return to work form and final FMLA Furnace Feeder Required: Yes Furnace Feeder Language: Head Of Product Name: ASL- Tablet Allergies bee pollen (BEE STINGS) Allergy (Severe, Verified 05/18/25 10:13) SWELLING and facial swelling Sulfa (Sulfonamide Antibiotics) (SULFA (SULFONAMIDE ANTIBIOTICS)) Allergy (Severe, Verified 05/18/25 10:13) swelling, hives acetaminophen (From Percocet) Allergy (Verified 05/18/25 10:13) Palpitations orange juice Allergy (Verified 05/18/25 10:13) Blister oxycodone (From Percocet) Allergy (Verified 05/18/25 10:13) Palpitations prednisone Allergy (Verified 05/18/25 10:13) heart palpitation, raises glucose levels simvastatin Allergy (Verified 05/18/25 10:13) Hives adhesive Adverse Reaction (Intermediate, Verified 05/18/25 10:13) Rash, burning, from EKG stickers Assessment & Plan Assessment & Plan (1) Spondylosis of lumbosacral spine with radiculopathy: Code(s): M47.27 - Other spondylosis with radiculopathy, lumbosacral region Category: Medical Plan Mr Escobar came in today in follow-up. He had lumbar fusion revision surgery with extension of his fusion up to L3-4 done on March 17. He wanted to discuss return to work. I used senior interaction designer [id number] on our language [employer] staff interpreter system here in the office today. We decided on a return to work date of June 11. He will have lifting restrictions to no greater than 20 lb. I filled out all of his paperwork for him. That was the main purpose of him coming in today. He is still having a little tightness in the left side of his low back so I urged him to use caution with any lifting at all. Mark Martinez MD, PhD [facility] Coding Level of Care Code Global (03425) Diagnoses Spondylosis of lumbosacral spine with radiculopathy M47.27
--- OUTSIDE RECORDS SUMMARY | 2025-05-21 15:46 | XMS_ITS | Clinical Summary ---
Author Organization [employer] Address [address] [place] [address] 7 [place] [address] Care Team Providers Care Environmental Field Technician Name Role Phone Stan Fletcher MD Primary Care Provider [phone] [phone] Allergies Active Allergy Reactions Criticality Noted Date [...] mL 11 2022 Active Continuous Blood Gluc Automobile Body Repair Chief (FreeStyle Cathryn 2 [place]) deviceIndications:Type 2 diabetes mellitus without complication, with long-term current use of insulin ([facility]) To use daily 1 each 2022 Active Continuous Blood Gluc Sensor (FreeStyle Cathryn 2 Sensor) miscIndications:Type 2 diabetes mellitus without complication, with long-term current use of insulin ([facility]) To use daily 2 each 2022 [...] hyperglycemia, with long-term current use of insulin ([facility]) INJECT 12 UNITS SUBCUTANEOUSLY THREE [...] use of insulin ([facility]) Inject 12 Units as directed 3 times daily. 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 Do not crush or chew. 60 capsule 11 2023 Active Continuous Glucose Automobile Body Repair Chief (FreeStyle Cathryn 2 [place]) deviceIndications:Type 2 diabetes mellitus without complication, with long-term current use of insulin ([facility]) Scan sensor every 8 hours 1 each 2023 Active Continuous Glucose Sensor (FreeStyle Cathryn 2 Sensor) miscIndications:Type 2 diabetes mellitus without complication, with long-term current use of insulin ([facility]) Apply 1 sensor every 14 days 2 each 2023 Active atorvastatin (Lipitor) 40 MG tabletIndications:Pure hypercholesterolemia TAKE ONE TABLET EVERY MORNING 30 tablet 11 2023 Active Lantus SoloStar 100 UNIT/ML pen INJECT 60 UNITS SUBCUTANEOUSLY ONCE DAILY 30 mL 2023 Active TechLite Pen [place] 32G X 6 MM misc USE FOUR [...] use of insulin ([facility]) Take 1 tablet (100 mg) by [...] use of insulin ([facility]) To use 2 times a day [...] 10:15 AM EDT Clinical Support [facility] [address] [place] [address] Cheryl Melendez RN Encounter for immunization 05/15/2025 Travel 05/14/2025 Telephone [facility] [address] [place] [address] Stan Fletcher MD Results 05/13/2025 Telephone [facility] [address] [place] [address] Veronica Wooten, PharmD 05/12/[address] [address] Stan Fletcher MD 05/12/2025 Travel 05/08/2025 Telephone [facility] [address] [place] [address] Stan Fletcher MD Appointment Request 05/08/2025 Results Follow-Up [address] [address] Gloria Tyson RN Prothrombin Time-INR, Ferritin, Iron And Total Iron Binding Capacity 05/07/2025 2:45 PM EDT Office Visit [facility] [address] [place] [address] Stan Fletcher MD Diarrhea, unspecified type (Primary Dx); Primary hypertension; Type 2 diabetes mellitus without complication, with long-term current use of insulin ([facility]); Transaminitis; Irritant contact dermatitis due to other agents; Primary insomnia 05/07/2025 Results Follow-Up [facility] [address] [place] [address] Cheryl Melendez RN Glucose, Whole Blood, Basic Metabolic Panel, AST, ALT 05/07/2025 Travel 05/07/2025 Telephone [facility] [address] [place] [address] Stan Fletcher MD Nurse Triage 05/06/2025 Telephone [facility] [address] [place] [address] Stan Mojica MD Call Back Request; fyi 05/05/2025 Orders Only [facility] [address] [place] [address] Stan Fletcher MD Transaminitis (Primary Dx); Decreased GFR 05/05/2025 Orders Only GENERIC EXTERNAL DATA DEPARTMENT Provider, Generic External Data 04/29/2025 Telephone [facility] [address] [place] [address] Stan Fletcher MD Medication Question 04/22/2025 2:15 PM EDT Office Visit [facility] [address] [place] [address] Stan Fletcher MD Type 2 diabetes mellitus without complication, with long-term current use of insulin ([facility]) (Primary Dx); Primary hypertension; Right hip pain 04/22/2025 Travel 04/21/2025 Telephone [facility] [address] [place] [address] Stan Fletcher MD Chart Prep 04/21/[address] [address] Stan Fletcher MD Nurse Triage 03/30/2025 Telephone [facility] [address] [place] [address] Stan Fletcher MD Med Refill 03/19/[address] [address] Stan Fletcher MD Appointment Request 03/16/2025 Telephone [facility] [address] [place] [address] Stan Fletcher MD Medication Question 03/04/2025 Telephone [facility] [address] [place] [address] Stan Fletcher MD Medication Question 03/03/[address] [address] Stan Fletcher MD Nurse Triage 03/02/2025 Refill [facility] [address] [place] [address] Stan Fletcher MD Right sided sciatica 02/25/2025 Telephone [facility] [address] [place] [address] Stan Fletcher MD Referral 02/24/2025 Telephone [facility] [address] [place] [address] Stan Fletcher MD Appointment Request 02/23/2025 Telephone [facility] [address] [place] [address] Stan Fletcher MD Medication Question 02/23/2025 Refill [facility] [address] [place] [address] Stan Fletcher MD Right sided sciatica from [...] 10:00 AM EDT Clinical Support [facility] [address] [place] [address] Health Maintenance Due Date Last Done Comments [...] use of insulin ([facility]) POCT GLUCOSE Routine 04/22/2025 4:07 PM EDT Type 2 diabetes mellitus without complication, with long-term current use of insulin ([facility]) LIPID PANEL, STANDARD Routine 11/12/2024 11:34 [...] PM EDT) Hepatitis A IgM Nonreactive Nonreactive [facility] Comment:IgM antibodies to AVERY V not detected; does not exclude earlyacute or recovered HAV infection. ~Hepatitis B Surface Antibody NONREACTIVE Nonreactive [facility] Comment:Nonreactive: < 8.00 mIU/mL Hepatitis B Core Antibody Nonreactive Nonreactive [facility] Hepatitis C Antibody Nonreactive Nonreactive [facility] Comment:Antibodies to HCV no t detected; does not exclude early acuteHCV infection. Hepatitis B Surface Ag Negative Negative [facility] Blood Venous blood specimen / Unknown 05/07/2025 3:25 PM EDT 05/07/2025 5:39 PM EDT us Satn Fletcher MD LAB BLOOD ORDERABLES Final Result [facility] [address] [place] [address] [phone] * (ABNORMAL) Iron And Total Iron Binding Capacity (05/07/2025 3:25 PM EDT) Iron 161(H) 45 - 160 mcg/dL [facility] Total Iron Binding Capacity 273 228 - 428 mcg/dL [facility] Percent Iron Saturation 59(H) 15 - 50 % [facility] Unsaturated Iron Binding 112 ug/dL [facility] Blood Venous blood specimen / Unknown 05/07/2025 3:25 PM EDT 05/07/2025 5:39 PM EDT us Stan Fletcher MD LAB BLOOD ORDERABLES Final Result Performing Organization Address [facility]/ZIP Co de Phone Number [facility] [address] [place] [address] [phone] * (ABNORMAL) Prothrombin Time-INR (05/07/2025 3:25 PM EDT) Prothrombin Time 14.0(H) 10.9 - 12.4 SEC [facility] INTERNATIONAL NORM RATIO 1.2(H) 0.9 - 1.1 [facility] Comment:INTERNATIONAL NORMAL IZED RATIO (INR) [...] BLOOD ORDERABLES Final Result Performing Organization Address City/[facility]/ZIP Co de Phone Number [facility] [address] [place] [phone] * Immunoglobulins, Quantitative, IgA, IgG, IgM (05/07/2025 3:25 PM EDT) IMMUNOGLOBULIN G 982 600 - 1540 mg/dL [facility] IMMUNOGLOBULIN A 142 70 - 320 mg/dL [facility] Immunoglobulin M 86 50 - 300 mg/dL [facility] Comment:THIS TEST WAS PERFOR MED AT:[facility] [place] [id number] MANRIQUEZ MD Blood Venous blood specimen / Unknown 05/07/2025 3:25 PM EDT 05/07/2025 5:39 PM EDT us Stan Fletcher MD LAB BLOOD ORDERABLES Final Result Performing Organization Address [facility] Co de Phone Number [facility] [address] [place] [phone] * (ABNORMAL) Ferritin (05/07/2025 3:25 PM EDT) Ferritin 619(H) 20 - 250 ng/mL [facility] Blood Venous blood specimen / Unknown 05/07/2025 3:25 PM EDT 05/07/2025 5:39 PM EDT us Stan Fletcher MD LAB BLOOD ORDERABLES Final Result Performing Organization Address [facility] de Phone Number [facility] [address] [place] [phone] * (ABNORMAL) ALT (05/05/2025 11:40 AM EDT) Alanine Aminotransferase 72(H) 0 - 40 U/L [facility] 05/05/2025 11:4 0 AM EDT 05/05/2025 11:40 AM EDT us Generic External Data Provider LAB BLOOD ORDERAB LES Final Result Performing Organization Address [facility] de Phone Number [facility] [address] [place] [phone] * (ABNORMAL) AST (05/05/2025 11:40 AM EDT) Aspartate Amino Transferase 49(H) 5 - 37 U/L [facility] 05/05/2025 11:4 0 AM EDT 05/05/2025 11:40 AM EDT Generic External Data Provider LAB BLOOD ORDERAB LES Final Result Performing Organization Address [facility] Co de Phone Number [facility] [address] [place] [address] [phone] * (ABNORMAL) Basic Metabolic Panel (05/05/2025 11:40 AM EDT) Sodium 142 135 - 145 mmol/L [facility] Potassium 4.4 3.3 - 5.1 mmol/L [facility] Chloride 108 96 - 108 mmol/L [facility] Carbon Dioxide 27 22 - 29 mmol/L [facility] Anion Gap 11(L) 12 - 20 [facility] Urea Nitrogen (BUN) 32(H) 9 - 16 mg/dL [facility] Creatinine, Serum 1.41(H) 0.5 - 1.4 mg/dL [facility] Estimated Glomerular Filt Rate 51 [facility] Comment:Chronic Kidney Disea se: Estimated GFR < 60 mL/min/1.94g4Khzcts Kidney Disease: Estimated GFR < 15 mL/min/1.73m2 Glucose 100 60 - 115 mg/dL [facility] Calcium 9.4 8.4 - 10.2 mg/dL [facility] 05/05/2025 11:4 0 AM EDT 05/05/2025 11:40 AM EDT us Generic External Data Provider LAB BLOOD ORDERAB LES Final Result Performing Organization Address [facility]/ZIP Co de Phone Number [facility] [address] [place] [phone] [phone] * Glucose, Whole Blood (05/05/2025 10:14 AM EDT) Glucose, Whole Blood 78 60 - 115 mg/dL [facility] Comment:METER #: [id number] Testing performed in the Endocrinology Department [address] , [address], [facility]. 05/05/2025 10:1 4 AM EDT 05/05/2025 10:17 AM EDT us Generic External Data Provider LAB BLOOD ORDERAB LES Final Result [facility] [address] [place] [address] [phone] * (ABNORMAL) POCT HGB A1C (04/22/2025 [...] Media Lot # [id number] Lot# Expiration Date 859 Comment:random Blood Capillary blood specimen / Unknown 04/22/2025 4:07 PM EDT us Stan Fletcher MD POINT OF CARE TEST ENTER/ED IT ORDERABLES Final Result * (ABNORMAL) Lipid Panel, Standard (11/12/2024 11:34 AM EDT) Triglycerides 176(H) <150 mg/dL [facility] Comment:Desirable Triglyceri de: less than 150 mg/dLBorderline High Triglyceride 150-199 mg/dLHigh Triglyceride: 200-499 mg/dLVery High Triglyceride: greater than or equal to 5OO mg/dL Cholesterol 116 <200 mg/dL [facility] Comment:Desirable Cholestero l: less than 200 mg/dLBorderline High Cholesterol: 200-239 mg/dLHigh Cholesterol: greater than 239 mg/dL LDL Cholesterol Calculated 49 <100 mg/dL [facility] Comment:Desirable LDL: less than 100 mg/dLNear Optimal/Above Optimal LDL: 110- 129 mg/dLBorderline High LDL: 130-159 mg/dLHigh LDL: 160-189 mg/dLVery High LDL: greater than or equal to 190 mg/dL HDL Cholesterol 32(L) >40 mg/dL [facility] Comment:Desirable HDL: great er than 40 mg/dL Note: This HDL assay may give artificially low results in patients with liver disease. Blood Venous blood specimen / Unknown 11/12/2024 11:34 AM EDT 11/12/2024 2:15 PM EDT us Stan Fletcher MD LAB BLOOD ORDERABLES Final Result Performing Organization Address [facility] Co de Phone Number [facility] [address] [place] [phone] * Diabetes Eye Exam (11/11/2024 4:01 PM EDT) us Historical Provider HEALTH MAINTENANCE Final Result * Albumin, Random Urine W/Creatinine (11/05/2024 10:17 AM EDT) Creatinine, Urine 98.24 mg/dL [facility] Microalbumin Urine 20.0 mg/L [facility] Microalbum Creatinine Ratio Ur 20.3 <30 ug/mg cr [facility] Comment:Albumin/Creatinine R atio Reference Ranges: Normal: < 30 ug/mg creatinine Microalbuminuria: 30 - 300 ug/mg creatinineClinical Albuminuria: > 300 ug/mg creatinine Urine (Urine, Random) 11/05/2024 10:17 AM EDT 11/05/2024 2:07 PM EDT us Stan Fletcher MD LAB URINE ORDERABLES Final Result Performing Organization Address [facility]/ZIP Co de Phone Number [facility] [address] [place] [address] [phone] * (ABNORMAL) Cologuard?? colon cancer screening (12/06/2023 7:58 AM EDT) Cologuard Result Positive( A) Negative 12/13/2023 5:48 PM EDT [facility] (CLIA #:[id number]) Comment: POSITIVE TEST RESULT. A positive Cologuard [...] (Saritha Otto al, N Engl J Med 2014;370(14):0981-4708.) Cologuard may produce a false negative or false positive result (no colorectal cancer or precancerous polyp present at colonoscopy follow up). A negative Cologuard test result does not guarantee the absence of CRC or advanced adenoma (pre-cancer). The current Cologuard screening interval is every 3 years. ([place] [employer] Society and U.S. Multi-Society Task Force). Cologuard performance data in a 10,000 patient pivotal study using colonoscopy as the reference method can be accessed at the following location: [email or web address].[email or web address]/results. Additional description of the Cologuard test process, warnings and precautions can be found at [email or web address]. Stool specimen (specimen) Rectal contents / Unknown 12/06/2023 7:58 AM EDT 12/07/2023 10:55 AM EDT us Stan Fletcher MD LAB MOLECULAR DIAGNOSTICS O RDERABLES Final Result [facility] (CLIA #:[id number]) [address] [place] [address], from Last 3 Months or Most Recently Relevant to Health Maintenance Insurance [address] [facility] DUAL COMPLETE HMO [facility] [address] [place], [place] [facility] [address] [place] [address] [facility] [address] [place] [address] Care Teams Environmental Field Technician Relationship Specialty Start Date End Date Stan Fletcher MD [address] [place] [phone] PCP - General Internal Medicine 08/20/18
--- OUTSIDE RECORDS SUMMARY | 2025-05-21 15:46 | XMS_ITS | Encounter Summary ---
Author Organization [facility] Address [address] [place] [address] [address] [place] [address] Care Team Providers Care Professor Of Philosophy Name Role Phone Stan Fletcher MD Primary Care Provider [phone] Encounter Details Date Type Department Care Team ([facility] Contact Info) Description 08/03/2022 Telephone [facility] [address] [place] [address] Stan Fletcher MD [address] [place] [address] Social History Tobacco Use Types Packs/Day Years [...] Description 06/12/2025 10:00 AM EDT Clinical Support [facility] [address] [place] [address] documented as of this encounter Visit Diagnoses Not on filedocumented in this encounter Care Teams Professor Of Philosophy Relationship Specialty Start Date End Date Stan Fletcher MD [address] [place] [address] PCP - General Internal Medicine 08/20/18 documented as of this encounter
--- OUTSIDE RECORDS SUMMARY | 2025-05-21 15:46 | XMS_ITS | Encounter Summary ---
Author Organization [employer] Address [address] [place] [address] Care Team Providers Care Artificial Limb Fitter Name Role Phone Stan Fletcher MD Primary Care Provider [phone] Reason for Referral * Consultation (Routine) - Closed Specialty Diagnoses / Procedures Referred By Contac t Referred To Contact Endocrinology Diagnoses Diabetes mellitus due to underlying condition with hyperglycemia, with long-term current use of insulin (HCC) Stan Fletcher MD [address] [place] [address] Phone: tel: fax: [facility] [place] [address] [place] [address] Phone: tel: fax: Referral ID Status Reason Start Date Expiration Date V isits Requested Visits Authorized [id number] Closed Specialty Services Required 12/18/2024 12/18/2025 1 1 Encounter Details Date Type Department Care Team (Late st Contact Info) Description 12/10/2024 Orders Only [facility] [address] [place] [address] Stan Fletcher MD [address] [place] [address] Type 2 diabetes mellitus without complication, with [...] Description 06/12/2025 10:00 AM EDT Clinical Support [facility] [address] [place] [address] Scheduled Referrals Name Type Priority Associated Diagnoses [...] EDT) Sodium 140 135 - 145 mmol/L [facility] Potassium 4.9 3.3 - 5.1 mmol/L [facility] Chloride 109(H) 96 - 108 mmol/L [facility] Carbon Dioxide 24 22 - 29 mmol/L [facility] Anion Gap 12 12 - 20 [facility] Urea Nitrogen (BUN) 47(H) 9 - 16 mg/dL [facility] Creatinine, Serum 1.46(H) 0.5 - 1.4 mg/dL [facility] Estimated Glomerular Filt Rate 49 [facility] Comment:Chronic Kidney Disea se: Estimated GFR < 60 mL/min/1.14n5Fxptum Kidney Disease: Estimated GFR < 15 mL/min/1.73m2 Glucose 87 60 - 115 mg/dL [facility] Calcium 9.5 8.4 - 10.2 mg/dL [facility] Blood Venous blood specimen / Unknown 02/10/2025 10:40 AM EDT 02/10/2025 1:58 PM EDT us Stan Fletcher MD LAB BLOOD ORDERABLES Final Result [facility] [address] [place] [phone] [phone] documented in this encounter Visit Diagnoses [...] documented as of this encounter Care Teams Artificial Limb Fitter Relationship Specialty Start Date End Date Stan Fletcher MD [address] [place] [phone] PCP - General Internal Medicine 08/20/18 documented as of this encounter
--- OUTSIDE RECORDS SUMMARY | 2025-05-21 15:46 | XMS_ITS | Encounter Summary ---
Author Organization [employer] Address [address] [place] [address] [address] [place] [address] Care Team Providers Care Account Development Executive Name Role Phone Stan Fletcher MD Primary Care Provider [phone] Encounter Details Date Type Department Care Team ([facility] Contact Info) Description 06/27/2023 Orders Only [facility] [address] [place], [place] [phone] Stan Fletcher MD [address] [place] [address] Acute pain of left shoulder (Primary Dx) [...] Upcoming Encounters Date Type Department Care Team ([facility] Contact Info) Description 06/12/2025 10:00 AM EDT Clinical Support [facility] [address] [place], [place] [phone] documented as of this encounter Visit Diagnoses Diagnosis Acute pain of left shoulder- Primary documented in this encounter Care Teams Account Development Executive Relationship Specialty Start Date End Date Stan Fletcher MD [address] [place] [address] PCP - General Internal Medicine 08/20/18 documented as of this encounter
--- OUTSIDE RECORDS SUMMARY | 2025-05-21 15:46 | XMS_ITS | Encounter Summary ---
Author Organization [employer] [facility] Address [address] [place] [address] Care Team Providers Care Electrical Electronics Technician Name Role Phone Stan Fletcher MD Primary Care Provider [phone] Reason for Visit * Reason Comments Med Refill Encounter Details Date Type Department Care Team ([facility] Contact Info) Description 08/29/2022 Refill [facility] [address] [place] [address] Stan Fletcher MD [address] [place] [address] Chronic pain syndrome Social History Tobacco Use [...] Encounters Date Type Department Care Team ([facility] Contact Info) Description 06/12/2025 10:00 AM EDT Clinical Support [facility] [address] [place], [place] [phone] documented as of this encounter Visit Diagnoses Diagnosis Chronic pain syndrome documented in this encounter Care Teams Electrical Electronics Technician Relationship Specialty Start Date End Date Stan Fletcher MD [address] [place], [place] [phone] PCP - General Internal Medicine 08/20/18 documented as of this encounter
--- OUTSIDE RECORDS SUMMARY | 2025-05-21 15:46 | XMS_ITS | Encounter Summary ---
Author Organization [employer] Address [address] [facility] 7 [place] [address] Care Team Providers Care Middle School Assistant Principal Name Role Phone Stan Fletcher MD Primary Care Provider [phone] Reason for Visit * Reason Onset Date Comments Med Refill 11/05/2023 Encounter Details Date Type Department Care Team ([facility] st Contact Info) Description 11/05/2023 Telephone [facility] [address] [place] [address] Stan Fletcher MD [address] [place], [place] [phone] Med Refill Social History Tobacco Use Types [...] 1:59 PM EDT Tc from [facility] requesting scripts for Continuous Blood Gluc Tenant Selector (FreeStyle Cathryn 2 [place]) device ,Continuous Blood Gluc Sensor (FreeStyle Cathryn 2 Sensor) misc and Precision Anjel Test Stripsit can be Faxed to [phone] documented in this encounter Plan of Treatment Upcoming Encounters Date Type Department Care Team (Late st Contact Info) Description 06/12/2025 10:00 AM EDT Clinical Support [facility] [address] [place] [address] documented as of this encounter Visit Diagnoses Not on filedocumented in this encounter Care Teams Middle School Assistant Principal Relationship Specialty Start Date End Date Stan Fletcher MD [address] [place] [address] PCP - General Internal Medicine 08/20/18 documented as of this encounter
--- OUTSIDE RECORDS SUMMARY | 2025-05-21 15:46 | XMS_ITS | Encounter Summary ---
Author Organization [employer] Address [address] [facility] 7 [place] [address] Care Team Providers Care Rn Emergency Name Role Phone Stan Fletcher MD Primary Care Provider [phone] Reason for Visit * Reason Onset Date Comments Medication Question 04/29/2025 Encounter Details Date Type Department Care Team ([facility] Contact Info) Description 04/29/2025 Telephone [facility] MED & PEDS [address] [place], [place] [phone] Stan Fletcher MD 505 [place] [address] Medication Question Social History Tobacco Use Types [...] very loose stool . Contact pt at [phone] (sign language) documented in this encounter Plan of Treatment Upcoming Encounters Date Type Department Care Team ([facility] st Contact Info) Description 06/12/2025 10:00 AM EDT Clinical Support [facility] MED & PEDS [address] [place] [address] documented as of this encounter Visit Diagnoses Not on filedocumented in this encounter Additional Health Concerns Assessment Noted Time PHQ-9 Depression Total Score: 0 11/06/19 25 9:29 AM EDT documented as of this encounter Care Teams Rn Emergency Relationship Specialty Start Date End Date Stan Fletcher MD [address] [place] [address] PCP - General Internal Medicine 08/20/18 documented as of this encounter
--- OUTSIDE RECORDS SUMMARY | 2025-05-21 15:46 | XMS_ITS | Encounter Summary ---
Author Organization [employer] [facility] Address [address] [place] [address] [address] [address] Care Team Providers Care Converting Supervisor Name Role Phone Stan Fletcher MD Primary Care Provider [phone] Encounter Details Date Type Department Care Team ([facility] Contact Info) Description 08/23/2023 Orders Only [facility] MED & PEDS 505 [place] [address] Stan Fletcher MD 505 [place] [address] Social History Tobacco Use Types Packs/Day Years [...] Upcoming Encounters Date Type Department Care Team ([facility] Contact Info) Description 06/12/2025 10:00 AM EDT Clinical Support [facility] MED & PEDS [address] [place] [address] documented as of this encounter Visit Diagnoses Not on filedocumented in this encounter Care Teams Converting Supervisor Relationship Specialty Start Date End Date Stan Fletcher MD 505 [place] [address] PCP - General Internal Medicine 08/20/18 documented as of this encounter
--- OUTSIDE RECORDS SUMMARY | 2025-05-21 15:46 | XMS_ITS | Encounter Summary ---
Author Organization [employer] Address 75 [facility] 7t [place] [address] Care Team Providers Care Grease Man Name Role Phone Stan Fletcher MD Primary Care Provider [phone] Encounter Details Date Type Department Care Team ([facility] Contact Info) Description 11/12/2024 Orders Only [facility] [address] [place] [address] ProviderMarcelle MD Social History Tobacco Use Types [...] [facility] Info) Description 06/12/2025 10:00 AM EDT Clinical Support [facility] MED & PEDS 505 [place] [address] documented as of this encounter Procedures Procedure [...] documented as of this encounter Care Teams Grease Man Relationship Specialty Start Date End Date Stan Fletcher MD [address] [place] [address] PCP - General Internal Medicine 08/20/18 documented as of this encounter
--- OUTSIDE RECORDS SUMMARY | 2025-05-21 15:46 | XMS_ITS | Encounter Summary ---
Author Organization [employer] Address [address] [facility] 7 [place] [address] Care Team Providers Care Aids Counselor Name Role Phone Stan Fletcher MD Primary Care Provider [phone] Reason for Visit * Reason Onset Date Comments Medication Question 03/16/2025 Encounter Details Date Type Department Care Team ([facility] Contact Info) Description 03/16/2025 Telephone [facility] CH[facility] MED & PEDS [address] [place], [place] [phone] Stan Fletcher MD 505 [place] [address] Medication Question Social History Tobacco Use Types [...] Pt stated it issmaller. Contact pt at [phone] (ASL) documented in this encounter Plan of Treatment Upcoming Encounters Date Type Department Care Team (Late st Contact Info) Description 06/12/2025 10:00 AM EDT Clinical Support [facility] MED & PEDS [address] [place] [address] documented as of this encounter Visit Diagnoses Not on filedocumented in this encounter Additional Health Concerns Assessment Noted Time PHQ-9 Depression Total Score: 0 11/06/19 25 9:29 AM EDT documented as of this encounter Care Teams Aids Counselor Relationship Specialty Start Date End Date Stan Fletcher MD [address] [place] [address] PCP - General Internal Medicine 08/20/18 documented as of this encounter
--- OUTSIDE RECORDS SUMMARY | 2025-05-21 15:46 | XMS_ITS | Encounter Summary ---
Author Organization [employer] [facility] Address [address] [place] [address] Care Team Providers Care Web Page Developer Name Role Phone Stan Fletcher MD Primary Care Provider [phone] Reason for Visit * Reason Comments Med Refill Encounter Details Date Type Department Care Team ([facility] Contact Info) Description 03/20/2023 Refill [facility] MED & PEDS [address] [place] [address] Stan Fletcher MD 505 [place] [address] Type 2 diabetes mellitus with hyperglycemia, with long-term current use of insulin ([facility]) Social History Tobacco [...] Team ([facility] Contact Info) Description 06/12/2025 10:00 AM EDT Clinical Support [facility] MED & PEDS [address] [place] [address] documented as of this encounter Visit Diagnoses Diagnosis Type 2 diabetes mellitus with hyperglycemia, with long-term current use of insulin ([facility]) documented in this encounter Care Teams Web Page Developer Relationship Specialty Start Date End Date Stan Fletcher MD [address] [place] [address] PCP - General Internal Medicine 08/20/18 documented as of this encounter
--- OUTSIDE RECORDS SUMMARY | 2025-05-21 15:46 | XMS_ITS | Encounter Summary ---
Author Organization [employer] Address [address] [place] [address] 7 [place] [address] Care Team Providers Care Certified Shorthand Reporter Name Role Phone Stan Fletcher MD Primary Care Provider [phone] Encounter Details Date Type Department Care Team ([facility] Contact Info) Description 12/07/2022 Orders Only [facility] MED & PEDS 505 [place] [address] Stan Fletcher MD 505 [place] [address] Palpitations (Primary Dx) Social History Tobacco Use [...] Upcoming Encounters Date Type Department Care Team ([facility] Contact Info) Description 06/12/2025 10:00 AM EDT Clinical Support [facility] MED & PEDS 505 [place] [address] documented as of this encounter Visit Diagnoses Diagnosis Palpitations- Primary documented in this encounter Care Teams Certified Shorthand Reporter Relationship Specialty Start Date End Date Stan Fletcher MD [address] [place] [address] PCP - General Internal Medicine 08/20/18 documented as of this encounter
--- OUTSIDE RECORDS SUMMARY | 2025-05-21 15:46 | XMS_ITS | Encounter Summary ---
Author Organization [employer] Address [address] [place] [address] Care Team Providers Care Director Of Strategic Sourcing Name Role Phone Stan Fletcher MD Primary Care Provider [phone] Reason for Referral * Consultation (Routine) - Closed Specialty Diagnoses / Procedures Referred By Contac t Referred To Contact Gastroenterology Diagnoses Positive colorectal cancer screening using Cologuard test Stan Fletcher MD [address] [place] [address] Phone: tel: fax: Neli Jaeger MD [address] [place] [address] Phone: tel: fax: Referral ID Status Reason Start Date Expiration Date V isits Requested Visits Authorized [id number] Closed Specialty Services Required 12/14/2023 12/13/2024 1 1 Encounter Details Date Type Department Care Team ([facility] Contact Info) Description 12/14/2023 Orders Only [facility] CHC MED & PEDS 505 [place], [place] [phone] Stan Fletcher MD 505 [place], [place] [phone] Positive colorectal cancer screening using Cologuard test [...] 10:00 AM EDT Clinical Support [facility] MED & PEDS [address] [place] [address] Scheduled Referrals Name Type Priority Associated Diagnoses [...] documented as of this encounter Care Teams Director Of Strategic Sourcing Relationship Specialty Start Date End Date Stan Fletcher MD [address] [place] [address] PCP - General Internal Medicine 08/20/18 documented as of this encounter
--- OUTSIDE RECORDS SUMMARY | 2025-05-21 15:46 | XMS_ITS | Encounter Summary ---
Author Organization [employer] Address [address] [place] [address] 7 [place] [address] Care Team Providers Care Pattern Chart Writer Name Role Phone Stan Fletcher MD Primary Care Provider [phone] Encounter Details Date Type Department Care Team ([facility] Contact Info) Description 07/16/2023 Orders Only [facility] MED & PEDS [address] [place], [place] [phone] Stan Fletcher MD [address] [place] [address] Social History Tobacco Use Types Packs/Day Years [...] Upcoming Encounters Date Type Department Care Team ([facility] [address] Contact Info) Description 06/12/2025 10:00 AM EDT Clinical Support [facility] MED & PEDS [address] [place], [place] [phone] documented as of this encounter Procedures Procedure Name Priority Date/Time Associated Diagnosis Comments MR SHOULDER WO CONTRAST LEFT Routine 08/07/2023 8:15 AM EST documented in this encounter Results * MR Shoulder w/o Contrast Left (08/07/2023 8:15 AM EST) Anatomical Region Laterality Modality Upper Extremities, Shoulder Left Magn etic Resonance 08/07/2023 8:15 AM EST Narrative 08/07/2023 3:29 PM EST [address] [address] Magnetic Resonance Report Signed Patient: Nick Escobar MR#: [id number] : 1960 Acct:[id number] Age/Sex: 62 / M ADM Date: 08/07/23 Loc: HO.MRI Attending Dr: Eddie Lawler MD Ordering Physician: Eddie Lawler MD Date of Service: 08/07/23 Procedure(s): MR shoulder LT wo con Accession Number(s): [id number] cc: Stan Fletcher MD; Eddie Lawler MD EXAMINATION: MR SHOULDER WITHOUT CONTRAST, LEFT CLINICAL INFORMATION: Posterior left shoulder and arm pain since 06/23/2023. Impingement syndrome. COMPARISON: Left shoulder radiographs dated 06/26/2023. TECHNIQUE: MRI of the shoulder was performed using routine sequences on a high-field scanner. FINDINGS: ROTATOR CUFF: Htbn-xm-zqfmuugp supraspinatus tendinosis with anterior bursal surface fraying [...] MR/MR shoulder LT wo con IMPRESSION: 1. Loov-zw-pfepevzv supraspinatus tendinosis with anterior bursal surface fraying [...] in OV> 08/07/23 1526 DD/ 0815 TD/TT: Key Cutter: Procedure Note Donotuseinterpreter, Image - 08/07/2023 [place] [address] Magnetic Resonance Report Signed Patient: Nick EscobarMR#: [id number] : 1960Acct:[id number] Age/Sex: 62 / MADM Date: 08/07/23 Loc: HO.MRI Attending Dr: Eddie Lawler MD Ordering Physician: Eddie Lawler MD Date of Service: 08/07/23 Procedure(s): MR shoulder LT wo con Accession Number(s): [id number] cc: Stan Fletcher MD; Eddie Lawler MD EXAMINATION: MR SHOULDER WITHOUT CONTRAST, LEFT CLINICAL INFORMATION: Posterior left shoulder and arm pain since 06/23/2023. Impingement syndrome. COMPARISON: Left shoulder radiographs dated 06/26/2023. TECHNIQUE: MRI of the shoulder was performed using routine sequences on a high-field scanner. FINDINGS: ROTATOR CUFF: Risa-ss-tjqkzfzy supraspinatus tendinosis with anterior bursal surface fraying [...] MR/MR shoulder LT wo con IMPRESSION: 1. Roqs-lp-qhjkgmxo supraspinatus tendinosis with anterior bursal surface fraying [...] in OV> 08/07/23 1526 DD/ 0815 TD/TT: Key Cutter: [facility] External Provider IMG MRI PROCEDURES Final Result documented in this encounter Visit Diagnoses Not on filedocumented in this encounter Care Teams Pattern Chart Writer Relationship Specialty Start Date End Date Stan Fletcher MD [address] [place] [address] PCP - General Internal Medicine 08/20/18 documented as of this encounter
--- OUTSIDE RECORDS SUMMARY | 2025-05-21 15:46 | XMS_ITS | Encounter Summary ---
Author Organization [employer] Address [address] [place] [address] 7 [place] [address] Care Team Providers Care Oil Well Services Supervisor Name Role Phone Stan Fletcher MD Primary Care Provider [phone] Reason for Visit * Reason Onset Date Comments Durable Medical Equipment 01/26/2023 Encounter Details Date Type Department Care Team ([facility] Contact Info) Description 01/26/2023 Telephone [facility] CHC MED & PEDS [address] [place], [place] [phone] Stan Fletcher MD [address] [place] [address] Durable Medical Equipment Social History Tobacco Use [...] encounter Miscellaneous Notes * Telephone Encounter - Toir Tariq RN - 01/26/2023 11:08 AM EDT Please review request below and advise. Last office visit 01/02/23. * Telephone Encounter - Parul Tariq - 01/26/2023 10:01 AM EDT Tc from pt requesting a script and PA for a Freestyle mingo 2 sensor/glucose monitor. Would like itto be sent to [facility]. For clarification, please contact pt at [phone] (Sign language) documented in this encounter Plan of Treatment Upcoming Encounters Date Type Department Care Team (Late st Contact Info) Description 06/12/2025 10:00 AM EDT Clinical Support [facility] CHC MED & PEDS [address] [place] [address] documented as of this encounter Visit Diagnoses Diagnosis Type 2 diabetes mellitus without complication, with long-term current use of insulin (HCC)- Primary documented in this encounter Care Teams Oil Well Services Supervisor Relationship Specialty Start Date End Date Stan Fletcher MD [address] [place] [address] PCP - General Internal Medicine 08/20/18 documented as of this encounter
--- OUTSIDE RECORDS SUMMARY | 2025-05-21 15:46 | XMS_ITS | Encounter Summary ---
Author Organization [employer] Address [address] [place] [address] Care Team Providers Care Teacher Private Name Role Phone Stan Fletcher MD Primary Care Provider [phone] Reason for Referral * Consultation (Routine) - Canceled Specialty Diagnoses / Procedures Referred By Contac t Referred To Contact Endocrinology Diagnoses Type 2 diabetes mellitus without complication, with long-term current use of insulin ([facility]) Stan Fletcher MD [address] [place] [address] Phone: tel: fax: Referral ID Status Reason Start Date Expiration Date Visits Requested Visits Authorized [id number] Canceled Specialty Services Required 02/13/2025 02/13/2026 1 1 Encounter Details Date Type Department Care Team ([facility] Contact Info) Description 02/13/2025 Orders Only [facility] CH[facility] MED & PEDS [address] [place] [address] Stan Fletcher MD [address] [place] [address] Type 2 diabetes mellitus without complication, with [...] [facility] MED & PEDS [address] [place] [address] Scheduled Referrals Name Type Priority Associated Diagnoses Order Schedule Referral to Endocrinology Outpatient Referral Routine Type 2 diabetes mellitus without complication, with long-term current use of insulin ([facility]/H[facility]) Expected: 02/13/2025 (Approximate), Expires: 02/13/2026 documented as of this encounter Visit Diagnoses Diagnosis Type 2 diabetes mellitus without complication, with long-term current use of insulin (HCC)- Primary documented in this encounter Additional Health Concerns Assessment Noted Time PHQ-9 Depression Total Score: 0 11/06/19 25 9:29 AM EDT documented as of this encounter Care Teams Teacher Private Relationship Specialty Start Date End Date Stan Fletcher MD [address] [place] [address] PCP - General Internal Medicine 08/20/18 documented as of this encounter
--- OUTSIDE RECORDS SUMMARY | 2025-05-21 15:46 | XMS_ITS | Encounter Summary ---
Author Organization [employer] Address [address] [place] [address] Care Team Providers Care Analysis Director Name Role Phone Stan Fletcher MD Primary Care Provider [phone] Reason for Visit * Reason Comments Med Refill Encounter Details Date Type Department Care Team ([facility] Contact Info) Description 01/09/2023 Refill [facility] MED & PEDS [address] [place] [address] Stan Fletcher MD [address] [place] [address] Social History Tobacco Use Types Packs/Day Years [...] Upcoming Encounters Date Type Department Care Team ([facility] Contact Info) Description 06/12/2025 10:00 AM EDT Clinical Support [facility] MED & PEDS [address] [place] [address] documented as of this encounter Visit Diagnoses Not on filedocumented in this encounter Care Teams Analysis Director Relationship Specialty Start Date End Date Stan Fletcher MD [address] [place] [address] PCP - General Internal Medicine 08/20/18 documented as of this encounter
--- OUTSIDE RECORDS SUMMARY | 2025-05-21 15:46 | XMS_ITS | Encounter Summary ---
Author Organization [facility] Address [address] [place] [address] 7 [place] [address] Care Team Providers Care Manager Utilization Name Role Phone Stan Fletcher MD Primary Care Provider [phone] Reason for Visit * Reason Comments Med Refill Encounter Details Date Type Department Care Team ([facility] Contact Info) Description 02/23/[address] [facility] CHC MED & PEDS [address] [place], [place] [phone] Stan Fletcher MD [address] [place] [address] Right sided sciatica Social History Tobacco Use [...] Upcoming Encounters Date Type Department Care Team ([facility] st Contact Info) Description 06/12/2025 10:00 AM EDT Clinical Support [facility] CHC MED & PEDS [address] [place] [address] documented as of this encounter Visit Diagnoses Diagnosis Right sided sciatica Sciatica documented in this encounter Additional Health Concerns Assessment Noted Time PHQ-9 Depression Total Score: 0 11/06/19 25 9:29 AM EDT documented as of this encounter Care Teams Manager Utilization Relationship Specialty Start Date End Date Stan Fletcher MD [address] [place] [address] PCP - General Internal Medicine 08/20/18 documented as of this encounter
--- OUTSIDE RECORDS SUMMARY | 2025-05-21 15:46 | XMS_ITS | Encounter Summary ---
Author Organization [employer] Address [address] [facility] 7 [place] [address] Care Team Providers Care Health Information Manager Name Role Phone Stan Fletcher MD Primary Care Provider [phone] Reason for Visit * Reason Onset Date Comments Nurse Triage 02/13/2025 Encounter Details Date Type Department Care Team ([facility] st Contact Info) Description 02/13/2025 Telephone [facility] MEDICINE [address] [place] [address] Stan Fletcher MD [address] [place], [place] [phone] Nurse Triage Social History Tobacco Use Types [...] 10:22 AM EDT Called pt. Via [phone] lyric writer. Pt states that he was prescribed Aspirin 10mg every am a long time ago in the [place] and he stopped taking it in December [...] acuity questions The caller accepted this outcome. [phone] (Sign Language) documented in this encounter Plan of Treatment Upcoming Encounters Date Type Department Care Team (Late st Contact Info) Description 06/12/2025 10:00 AM EDT Clinical Support [facility] CHC MED & PEDS [address] [place] [address] documented as of this encounter Visit Diagnoses Not on filedocumented in this encounter Additional Health Concerns Assessment Noted Time PHQ-9 Depression Total Score: 0 11/06/19 25 9:29 AM EDT documented as of this encounter Care Teams Health Information Manager Relationship Specialty Start Date End Date Stan Fletcher MD [address] [place] [address] PCP - General Internal Medicine 08/20/18 documented as of this encounter
--- OUTSIDE RECORDS SUMMARY | 2025-05-21 15:46 | XMS_ITS | Encounter Summary ---
Author Organization [employer] Address [address] [place] [address] Care Team Providers Care Recruiting Intern Name Role Phone Stan Fletcher MD Primary Care Provider [phone] Reason for Referral * Imaging (Routine) - Authorized Specialty Diagnoses / Procedures Referred By Contac t Referred To Contact Radiology Diagnoses Decreased GFR Procedures US RENAL BI Stan Fletcher MD [address] [place] [address] Phone: tel: fax: [address] Phone: tel: fax: Referral ID Status Reason Start Date Expiration Date V isits Requested Visits Authorized [id number] Authorized 05/07/2025 05/07/2026 1 1 * Imaging (Routine) - Authorized Specialty Diagnoses / Procedures Referred By Contac t Referred To Contact Radiology Diagnoses Transaminitis Procedures US Abdomen Comp w elastography Stan Fletcher MD [address] [place] [address] Phone: tel: fax: [address] Phone: tel: fax: Referral ID Status Reason Start Date Expiration Date V isits Requested Visits Authorized [id number] Authorized 05/06/2025 05/06/2026 1 1 Encounter Details Date Type Department Care Team ([facility] st Contact Info) Description 05/05/2025 Orders Only [facility] MED & PEDS [address] [place] [address] Stan Fletcher MD [address] [place] [address] Transaminitis (Primary Dx); Decreased GFR Social History [...] 10:00 AM EDT Clinical Support [facility] MED & PEDS [address] [place] [address] Scheduled Orders Name Type Priority Associated Diagnoses [...] EDT) Iron 161(H) 45 - 160 mcg/dL [facility] Total Iron Binding Capacity 273 228 - 428 mcg/dL [facility] Percent Iron Saturation 59(H) 15 - 50 % [facility] Unsaturated Iron Binding 112 ug/dL [facility] Blood Venous blood specimen / Unknown 05/07/2025 3:25 PM EDT 05/07/2025 5:39 PM EDT us Stan Fletcher MD LAB BLOOD ORDERABLES Final Result Performing Organization Address [facility]/ZIP Co de Phone Number [facility] [address] [place] [phone] * (ABNORMAL) Ferritin (05/07/2025 3:25 PM EDT) Ferritin 619(H) 20 - 250 ng/mL [facility] Blood Venous blood specimen / Unknown 05/07/2025 3:25 PM EDT 05/07/2025 5:39 PM EDT us Stan Fletcher MD LAB BLOOD ORDERABLES Final Result Performing Organization Address [facility] de Phone Number [facility] [address] [place] [phone] * (ABNORMAL) Prothrombin Time-INR (05/07/2025 3:25 PM EDT) Prothrombin Time 14.0(H) 10.9 - 12.4 SEC [facility] INTERNATIONAL NORM RATIO 1.2(H) 0.9 - 1.1 [facility] Comment:INTERNATIONAL NORMAL IZED RATIO (INR) [...] BLOOD ORDERABLES Final Result Performing Organization Address [facility] Co de Phone Number [facility] [address] [place] [phone] * Immunoglobulins, Quantitative, IgA, IgG, IgM (05/07/2025 3:25 PM EDT) IMMUNOGLOBULIN G 982 600 - 1540 mg/dL [facility] IMMUNOGLOBULIN A 142 70 - 320 mg/dL [facility] Immunoglobulin M 86 50 - 300 mg/dL [facility] Comment:THIS TEST WAS PERFOR MED AT:[facility] [place] [phone] MANRIQUEZ MD Blood Venous blood specimen / Unknown 05/07/2025 3:25 PM EDT 05/07/2025 5:39 PM EDT us Stan Fletcher MD LAB BLOOD ORDERABLES Final Result Performing Organization Address [facility] Co de Phone Number [facility] [address] [place] [phone] documented in this encounter Visit Diagnoses Diagnosis Transaminitis- Primary Nonspecific elevation of levels of transaminase or lactic acid dehydrogenase (LDH) Decreased GFR documented in this encounter Additional Health Concerns Assessment Noted Time PHQ-9 Depression Total Score: 0 11/06/19 25 9:29 AM EDT documented as of this encounter Care Teams Recruiting Intern Relationship Specialty Start Date End Date Stan Fletcher MD [address] [place] [phone] PCP - General Internal Medicine 08/20/18 documented as of this encounter
--- OUTSIDE RECORDS SUMMARY | 2025-05-21 15:46 | XMS_ITS | Encounter Summary ---
Author Organization [employer] Address [address] [place] [address] 7 [place] [address] Care Team Providers Care Corporate Relations Manager Name Role Phone Stan Fletcher MD Primary Care Provider [phone] Reason for Visit * Reason Onset Date Comments Nurse Triage 08/23/2023 Encounter Details Date Type Department Care Team ([facility] st Contact Info) Description 08/23/2023 Telephone [facility] CHC MED & PEDS [address] [place], [place] [phone] Stan Fletcher MD [address] [place], [place] [phone] Nurse Triage Social History Tobacco Use Types [...] 3:50 PM EST Called pt. Back via diplomatic interpreter/translator #[id number]. Called pt. Asked him if he has any Covid tests at home to test himself for Covid. Pt. States he has a test at home but, he currently at Pharmacy picking up some OTC cough medicine. I will call pt. Back at 430pm to see what Covid test result is as pt. States he lives [place] from [facility]. Called pt. Back via diplomatic interpreter/translator #[id number]. Pt. Took Covid test and it came out Negative. Pt. ShowedASL diplomatic interpreter/translator over video and she states that only the control line is showing and only 1 line on home Covid test. Advised pt. That per Dr. Fletcher he would like pt. To go to Walk in at [facility] tomorrow 08/23/2023 in the am to get his lungs listened to and to assess left lung congestion. Pt. States understanding and will go to walk in at [facility] at 830am when walk in opens. * Telephone Encounter - Vivi Salazar RN - 08/23/2023 2:53 PM EST Called pt. Back via diplomatic interpreter/translator. Hris Manager #[id number]. Pt. States that he has a productive [...] accepted this outcome Please contact pt @ [phone] Sign Language documented in this encounter Plan of Treatment Upcoming Encounters Date Type Department Care Team ([facility] st Contact Info) Description 06/12/2025 10:00 AM EDT Clinical Support [facility] MED & PEDS [address] [place] [address] documented as of this encounter Visit Diagnoses Not on filedocumented in this encounter Care Teams Corporate Relations Manager Relationship Specialty Start Date End Date Stan Fletcher MD [address] [place] [address] PCP - General Internal Medicine 08/20/18 documented as of this encounter
== END 2025-05-21 15:20 | disposition home or self-care (01) ==
LOC: HO.HNS 14:10
PROVIDERS: Visit Provider Physician Assistant
DX: M47.27 Other spondylosis with radiculopathy, lumbosacral region (principal)
CPT/HCPCS: 99024

== ENCOUNTER → 2025-05-21 14:09 | Outpatient (BNVA) | payer MEDICARE, MEDICAID, SELFPAY | PROVIDERS: Visit Provider Physician Assistant | DX: M47.27 Other spondylosis with radiculopathy, lumbosacral region (principal); Z98.1 Arthrodesis status | CPT/HCPCS: 99212 ==

== ENCOUNTER 2025-05-22 08:14 | Outpatient (AMB) | payer MEDICARE, MEDICAID, SELFPAY ==
--- NOTE | 2025-05-22 08:17 | MHC.OFFVIS ---
Vital Signs 05/22/25 08:44 Height 5 ft 8 in Weight 196 lb 3.382 oz BMI 29.8 BP 110/66 Blood Pressure Location Rt brachial Position Sitting Pulse 53 Pulse Source Pulse Oximeter Pulse Oximetry (%) 98 Oxygen Delivery Method Room Air Intake Visit Reasons: [id number] int requested Intake Note: Patient present today to follow up on Type 2 Diabetes Mellitus. Last Diabetic Eye exam: January 2025 Last Podiatry Visit: Does not see a Banana Ripening Room Supervisor Random Glucose: 112 mg/dl Hgb A1C: 6.8% 05/05/2025 Collar Worker Required: Yes Collar Worker Language: Climatologist Services: Collar Worker Present Collar Worker Name: Demar Combs (Returbo) Information Interpreted: non-clinical & clinical Accompanied by: Self / Same As Patient Allergies bee pollen (BEE STINGS) Allergy (Severe, Verified 05/22/25 08:44) SWELLING and facial swelling Sulfa (Sulfonamide Antibiotics) (SULFA (SULFONAMIDE ANTIBIOTICS)) Allergy (Severe, Verified 05/22/25 08:44) swelling, hives acetaminophen (From Percocet) Allergy (Verified 05/22/25 08:44) Palpitations orange juice Allergy (Verified 05/22/25 08:44) Blister oxycodone (From Percocet) Allergy (Verified 05/22/25 08:44) Palpitations prednisone Allergy (Verified 05/22/25 08:44) heart palpitation, raises glucose levels simvastatin Allergy (Verified 05/22/25 08:44) Hives adhesive Adverse Reaction (Intermediate, Verified 05/22/25 08:44) Rash, burning, from EKG stickers HPI Comments Details: This is a 64-year-old male with a past medical history of lumbar spinal stenosis, neurogenic claudication, spinal cord stimulator status, deafness and type 2 diabetes presenting for diabetic management. ASL video precision machinist used for visit. He was diagnosed with diabetes around 2000. He presented with urinary frequency and leg cramping. Hemoglobin a1c 6.8%. There is a family history of diabetes (father and pgm had Type II DM). He limits portions and eats less sugar. Drinks alcohol rarely. Nonsmoker. Exercise: walks. He had back surgery in February. He still has some residual pain which is improving. Sees Dr. Martinez. He reports that he was able to lose a significant amount of weight after implementing lifestyle modifications. Current medication regimen: Glipizide 5 mg daily, Lantus 50 units at bedtime, Humalog 10-15 units before meals, Januvia 100 mg daily Past medication: Metformin caused diarrhea Compliance issues: none Hypoglycemia symptoms: No recent episodes. Does not check sugars. Hyperglycemia symptoms: none. We revisited CGM today. I showed him the Cathryn 3+, and he says the just CGM which caused skin irritation was larger than this. He says there was redness and irritation at the site of the adhesive. He wanted to try Eversense 365 Eye exam: UTD. Microvascular complications: Nephropathy Macrovascular complications: none Hypertension: treated with hydrochlorothiazide, losartan, atenolol. Hyperlipidemia: treated with atorvastatin He has elevated liver enzymes, and ferritin is elevated. His primary care provider has ordered a liver ultrasound and testing for hemochromatosis. Screening for hepatitis a, B and C are negative. ROS: Constitutional: No unexplained weight loss, fever, chills, fatigue or night sweats. Respiratory: No shortness of breath Cardiovascular: No chest pain Gastrointestinal: Endorses diarrhea but had colonoscopy recently. Reports they found 2 polyps. Denies abdominal pain. Neurologic: No headache, dizziness, syncope, unilateral weakness, ataxia, numbness or tingling in the extremities. Skin: No rash Physical exam: Constitutional: Alert, in no distress. Neck: Supple, Full range of motion. No lymphadenopathy. No palpable thyroid masses. Respiratory: Clear to auscultation. Cardiovascular: S1 S2 regular. No murmurs. [facility] Medical History (Updated 05/22/25 @ 13:06 by BRANDON Kohli) CKD stage 3a, GFR 45-59 ml/min Elevated liver enzymes Controlled type 2 diabetes mellitus with insulin therapy Palpitations Chest pain Back pain Wears dentures Chronic pain syndrome Personal history of COVID-19 Hx of renal calculi Elevated cholesterol HTN (hypertension) Seasonal allergies Deaf Diabetes Surgical History Hx of shoulder surgery H/O colonoscopy Hx of lumbar discectomy History of carpal tunnel surgery of left wrist (03/27/24) History of lumbar surgery (12/25/22) S/P placement of nerve stimulator Hx of cholecystectomy History of right inguinal hernia repair (~12/29/19) History of lithotripsy History of bilateral inguinal hernia repair Family History Mother History of lung cancer Social History Household Members: Significant Other Housing: Apartment Are you a primary patient care coordinator to a significant other at home: No Do you presently have visiting nurse or other home services: No 75 years or older and lives alone: No Alcohol intake: current Alcohol intake frequency: does not drink Patient Tobacco Use Status: Never used Tobacco e-Cigarette/Vaping Use: Never Used Advance Directives Date on File: 12/27/22 service: No Current occupational status: employed Current occupation: [employer] Physical Exam Vital Signs: Last Vital Signs Pulse 53 05/22/25 08:44 BP 110/66 05/22/25 08:44 Pulse Ox 98 05/22/25 08:44 Oxygen Delivery Method Room Air 05/22/25 08:44 BMI result Body Mass Index 29.8 Results Reviewed Results Reviewed: Laboratory Last Values Glucose (Clinic) 112 mg/dL (60-115) 05/22/25 08:51 Laboratory Tests 03/03/25 05/05/25 05/07/25 11:30 11:40 15:25 Plt Count 170 PT 14.0 H INR 1.2 H Creatinine 1.41 H Estimated GFR 51 Ferritin 619 H AST 49 H ALT 72 H Hepatitis A IgM Ab Nonreactive Hep Bs Antigen Negative Hep Bs Antibody NONREACTIVE Hep B Core Total Ab Nonreactive Hepatitis C Ab (EIA) Nonreactive Assessment & Plan Assessment & Plan (1) Controlled type 2 diabetes mellitus with insulin therapy: Code(s): E11.9 - Type 2 diabetes mellitus without complications; Z79.4 - long-term (current) use of insulin Category: Medical (2) Elevated liver enzymes: Code(s): R74.8 - Abnormal levels of other serum enzymes Category: Medical (3) CKD stage 3a, GFR 45-59 ml/min: Code(s): N18.31 - Chronic kidney disease, stage 3a Category: Medical Plan In summary this is a 64-year-old male with controlled type 2 diabetes on basal bolus insulin, Januvia and glipizide. He is not interested in a GLP 1 due to potential side effects. He has CKD stage IIIA. He will stop glipizide. He will start Jardiance 10 mg daily. Side effects including risk of genitourinary infections and STACEY reviewed with the patient. Return to lab 10-14 days after starting the medicine to check creatinine. Continue Lantus 50 units at bedtime, Humalog 10-15 units before meals Decrease Januvia to 50 mg or 1/2 tablet daily Discussed pathophysiology of Type II Diabetes Mellitus with the patient in detail.? I explained the half-way risks and complications associated with uncontrolled diabetes including nephropathy, neuropathy, peripheral vascular disease, retinopathy, increased risk of heart disease and stroke.? Patient declines referral to dietitian. He is interested in Eversense 365 CGM. I will need to reach out to the rep. There is no one in this department trained to insert this. He had skin irritation with another CGM which sounds like it was the Dexcom. He is willing to try Cathryn 3+, and before application of the sensor he was advised to clean his skin with alcohol, allow it to dry and then apply 2 sprays of Flonase and allow this to drive before placing the sensor. I will refer him to the natural resources extension educator for CGM placement and training. Treatment of hypoglycemia reviewed. Follow up in 1 month. Orders: Orders Creatinine Today E11.9 - Type 2 diabetes mellitus without complications Referrals Diabetes Education Referral E11.65 - Type 2 diabetes mellitus with hyperglycemia Medications: New fluticasone propionate 50 mcg/actuation (Allergy Relief (fluticasone)) administer into each nostril 2 sprays intranasal DAILY 16 grams 0RF empagliflozin (Jardiance) 10 mg PO QAM 90 tabs 0RF blood-glucose,eap counselor,cont (FreeStyle Cathryn 3 Harrison) Use daily to monitor blood glucose levels continuously. 1 ea 0RF blood-glucose sensor (FreeStyle Cathryn 3 Plus Sensor device) Apply 1 new sensor every 15 days as directed to monitor blood glucose continuously. 2 ea 11RF Patient Instructions: Current medication regimen: Stop Glipizide Continue Lantus 50 units at bedtime, Humalog 10-15 units before meals Decrease Januvia to 50 mg or 1/2 tablet daily Start Jardiance 10 mg every morning To apply cathryn 3 plus sensor, cleanse the skin with alcohol and allow it to dry, then apply 2 sprays of Flonase (fluticasone) and allow it to dry, then apply sensor Please return to the lab in 10-14 days to recheck your kidney function after starting Jardiance. Coding Level of Care Code Est Pt Level 5 (84914) Complex EM visit Add On G2211 Diagnoses Controlled type 2 diabetes mellitus with insulin therapy E11.9; Z79.4 Elevated liver enzymes R74.8 CKD stage 3a, GFR 45-59 ml/min N18.31 Time Spent (min) 51 Comment Chart review, direct patient care, completing documentation
--- OUTSIDE RECORDS SUMMARY | 2025-05-22 08:27 | XMS_ITS | Encounter Summary ---
Author Organization [employer] Address [address] [place] [address] Care Team Providers Care Pile Header Name Role Phone Stan Fletcher MD Primary Care Provider [phone] Reason for Referral * Consultation (Routine) - Closed Specialty Diagnoses / Procedures Referred By Contac t Referred To Contact Endocrinology Diagnoses Diabetes mellitus due to underlying condition with hyperglycemia, with long-term current use of insulin (HCC) Stan Fletcher MD [address] [place] [address] Phone: tel: fax: [facility] Endocrinology [address] [place] [address] Phone: tel: fax: Referral ID Status Reason Start Date Expiration Date V isits Requested Visits Authorized [id number] Closed Specialty Services Required 12/18/2024 12/18/2025 1 1 Encounter Details Date Type Department Care Team (Late st Contact Info) Description 12/10/2024 Orders Only [facility] CHC MED & PEDS [address] [place] [address] Stan Fletcher MD [address] [place] [address] Type 2 diabetes mellitus without complication, with [...] Description 06/12/2025 10:00 AM EDT Clinical Support [facility] CHC MED & PEDS [address] [place] [address] Scheduled Referrals Name Type Priority Associated Diagnoses [...] EDT) Sodium 140 135 - 145 mmol/L [facility] Potassium 4.9 3.3 - 5.1 mmol/L [facility] Chloride 109(H) 96 - 108 mmol/L [facility] Carbon Dioxide 24 22 - 29 mmol/L [facility] Anion Gap 12 12 - 20 [facility] Urea Nitrogen (BUN) 47(H) 9 - 16 mg/dL [facility] Creatinine, Serum 1.46(H) 0.5 - 1.4 mg/dL [facility] Estimated Glomerular Filt Rate 49 [facility] Comment:Chronic Kidney Disea se: Estimated GFR < 60 mL/min/[id number] Kidney Disease: Estimated GFR < 15 mL/min/1.73m2 Glucose 87 60 - 115 mg/dL [facility] Calcium 9.5 8.4 - 10.2 mg/dL [facility] Blood Venous blood specimen / Unknown 02/10/2025 10:40 AM EDT 02/10/2025 1:58 PM EDT us Stan Fletcher MD LAB BLOOD ORDERABLES Final Result [facility] [address] [place] [address] [phone] documented in this encounter Visit Diagnoses [...] documented as of this encounter Care Teams Pile Header Relationship Specialty Start Date End Date Stan Fletcher MD [address] [place] [address] PCP - General Internal Medicine 08/20/18 documented as of this encounter
--- OUTSIDE RECORDS SUMMARY | 2025-05-22 08:27 | XMS_ITS | Encounter Summary ---
Author Organization [employer] Address [address] [place] [address] Care Team Providers Care Coin Machine Mechanic Name Role Phone Stan Fletcher MD Primary Care Provider [phone] Reason for Visit * Reason Onset Date Comments Medication Question 04/29/2025 Encounter Details Date Type Department Care Team ([facility] Contact Info) Description 04/29/2025 Telephone [facility] CH[facility] MED & PEDS [address] [place], [place] [phone] Stan Fletcher MD [address] [place] [address] Medication Question Social History Tobacco Use Types [...] very loose stool . Contact pt at [phone] (sign language) documented in this encounter Plan of Treatment Upcoming Encounters Date Type Department Care Team ([facility] st Contact Info) Description 06/12/2025 10:00 AM EDT Clinical Support [facility] MED & PEDS [address] [place] [address] documented as of this encounter Visit Diagnoses Not on filedocumented in this encounter Additional Health Concerns Assessment Noted Time PHQ-9 Depression Total Score: 0 11/06/19 25 9:29 AM EDT documented as of this encounter Care Teams Coin Machine Mechanic Relationship Specialty Start Date End Date Stan Fletcher MD [address] [place] [address] PCP - General Internal Medicine 08/20/18 documented as of this encounter
--- OUTSIDE RECORDS SUMMARY | 2025-05-22 08:27 | XMS_ITS | Encounter Summary ---
Author Organization [employer] Address [address] [place] [address] Care Team Providers Care Pelts Skinner Name Role Phone Stan Fletcher MD Primary Care Provider [phone] Reason for Referral * Consultation (Routine) - Closed Specialty Diagnoses / Procedures Referred By Contac t Referred To Contact Gastroenterology Diagnoses Positive colorectal cancer screening using Cologuard test Stan Fletcher MD [address] [place] [address] Phone: tel: fax: Neli Jaeger MD [address] [place] [phone] Phone: tel: fax: Referral ID Status Reason Start Date Expiration Date V isits Requested Visits Authorized [id number] Closed Specialty Services Required 12/14/2023 12/13/2024 1 1 Encounter Details Date Type Department [facility] Team ([facility] Contact Info[facility] Description 12/14/2023 Orders Only [facility] CHC MED & PEDS [address] [place], [place] [phone] Stan Fletcher MD [address] [place], [place] [phone] Positive colorectal cancer screening using Cologuard test [...] [facility] MED & PEDS [address] [place] [address] Scheduled Referrals Name Type Priority Associated Diagnoses [...] documented as of this encounter Care Teams Pelts Skinner Relationship Specialty Start Date End Date Stan Fletcher MD [address] [place] [address] PCP - General Internal Medicine 08/20/18 documented as of this encounter
--- OUTSIDE RECORDS SUMMARY | 2025-05-22 08:27 | XMS_ITS | Encounter Summary ---
Author Organization [facility] Address [address] [place] [address] [address] [place] [address] Care Team Providers Care Pmp Certified Project Manager Name Role Phone Stan Fletcher MD Primary Care Provider [phone] Encounter Details Date Type Department Care Team ([facility] Contact Info) Description 08/03/[address] [facility] MED & PEDS [address] [place] [address] Stan Fletcher MD [address] [place] [address] Social History Tobacco Use Types Packs/Day Years [...] Description 06/12/2025 10:00 AM EDT Clinical Support [facility] MED & PEDS [address] [place] [address] documented as of this encounter Visit Diagnoses Not on filedocumented in this encounter Care Teams Pmp Certified Project Manager Relationship Specialty Start Date End Date Stan Fletcher MD [address] [place] [address] PCP - General Internal Medicine 08/20/18 documented as of this encounter
--- OUTSIDE RECORDS SUMMARY | 2025-05-22 08:27 | XMS_ITS | Encounter Summary ---
Author Organization [employer] Address [address] [place] [address] [address] [place] [address] Care Team Providers Care Hitch Technician Name Role Phone Stan Fletcher MD Primary Care Provider [phone] Encounter Details Date Type Department Care Team ([facility] Contact Info) Description 06/27/2023 Orders Only [facility] MED & PEDS [address] [place], [place] [phone] Stan Fletcher MD [address] [place] [address] Acute pain of left shoulder (Primary Dx) [...] Upcoming Encounters Date Type Department Care Team ([facility] Contact Info) Description 06/12/2025 10:00 AM EDT Clinical Support [facility] MED & PEDS [address] [place], [place] [phone] documented as of this encounter Visit Diagnoses Diagnosis Acute pain of left shoulder- Primary documented in this encounter Care Teams Hitch Technician Relationship Specialty Start Date End Date Stan Fletcher MD [address] [place] [address] PCP - General Internal Medicine 08/20/18 documented as of this encounter
--- OUTSIDE RECORDS SUMMARY | 2025-05-22 08:27 | XMS_ITS | Encounter Summary ---
Author Organization [employer] Address [address] [place] [address] 7 [place] [address] Care Team Providers Care Infusion Nurse Name Role Phone Stan Fletcher MD Primary Care Provider [phone] Encounter Details Date Type Department Care Team ([facility] Contact Info) Description 07/16/2023 Orders Only [facility] MED & PEDS [address] [place], [place] [phone] Stan Fletcher MD 505 [place] [address] Social History Tobacco Use Types Packs/Day Years [...] Encounters Date Type Department Care Team ([facility] Contact Info) Description 06/12/2025 10:00 AM EDT Clinical Support [facility] & [facility]EDS [address] [place], [place] [phone] documented as of this encounter Procedures Procedure Name Priority Date/Time Associated Diagnosis Comments MR SHOULDER WO CONTRAST LEFT Routine 08/07/2023 8:15 AM EST documented in this encounter Results * MR Shoulder w/o Contrast Left (08/07/2023 8:15 AM EST) Anatomical Region Laterality Modality Upper Extremities, Shoulder Left Magn etic Resonance 08/07/2023 8:15 AM EST Narrative 08/07/2023 3:29 PM EST [address] [address] Magnetic Resonance Report Signed Patient: Nick Escobar MR#: [id number] : 1960 Acct:[id number] Age/Sex: 62 / M ADM Date: 08/07/23 Loc: HO.MRI Attending Dr: Eddie Lawler MD Ordering Physician: Eddie Lawler MD Date of Service: 08/07/23 Procedure(s): MR shoulder LT wo con Accession Number(s): [id number] cc: Stan Fletcher MD; Eddie Lawler MD EXAMINATION: MR SHOULDER WITHOUT CONTRAST, LEFT CLINICAL INFORMATION: Posterior left shoulder and arm pain since 06/23/2023. Impingement syndrome. COMPARISON: Left shoulder radiographs dated 06/26/2023. TECHNIQUE: MRI of the shoulder was performed using routine sequences on a high-field scanner. FINDINGS: ROTATOR CUFF: Jzvn-qe-bvlhabix supraspinatus tendinosis with anterior bursal surface fraying [...] MR/MR shoulder LT wo con IMPRESSION: 1. Qqhr-en-iazmsybm supraspinatus tendinosis with anterior bursal surface fraying [...] in OV> 08/07/23 1526 DD/ 0815 TD/TT: Life Specialist: Procedure Note Donotuseinterpreter, Image - 08/07/2023 [place] [address] Magnetic Resonance Report Signed Patient: Nick EscobarMR#: [id number] : 1960Acct:[id number] Age/Sex: 62 / MADM Date: 08/07/23 Loc: HO.MRI Attending Dr: Eddie Lawler MD Ordering Physician: Eddie Lawler MD Date of Service: 08/07/23 Procedure(s): MR shoulder LT wo con Accession Number(s): [id number] cc: Stan Fletcher MD; Eddie Lawler MD EXAMINATION: MR SHOULDER WITHOUT CONTRAST, LEFT CLINICAL INFORMATION: Posterior left shoulder and arm pain since 06/23/2023. Impingement syndrome. COMPARISON: Left shoulder radiographs dated 06/26/2023. TECHNIQUE: MRI of the shoulder was performed using routine sequences on a high-field scanner. FINDINGS: ROTATOR CUFF: Jvej-eh-hyaraanb supraspinatus tendinosis with anterior bursal surface fraying [...] MR/MR shoulder LT wo con IMPRESSION: 1. Tpaz-md-sdoqrnmf supraspinatus tendinosis with anterior bursal surface fraying [...] in OV> 08/07/23 1526 DD/ 0815 TD/TT: Life Specialist: [facility] External Provider IMG MRI PROCEDURES Final Result documented in this encounter Visit Diagnoses Not on filedocumented in this encounter Care Teams Infusion Nurse Relationship Specialty Start Date End Date Stan Fletcher MD [address] [place] [address] PCP - General Internal Medicine 08/20/18 documented as of this encounter
--- OUTSIDE RECORDS SUMMARY | 2025-05-22 08:27 | XMS_ITS | Encounter Summary ---
Author Organization [employer] Address [address] [facility] 7 [place] [address] Care Team Providers Care Drier Tender Naphthalene Name Role Phone Stan Fletcher MD Primary Care Provider [phone] Reason for Visit * Reason Onset Date Comments Med Refill 11/05/2023 Encounter Details Date Type Department Care Team ([facility] st Contact Info) Description 11/05/2023 Telephone [facility] MEDICINE [address] [place] [address] Stan Fletcher MD 505 [place], [place] [phone] Med Refill Social History Tobacco Use Types [...] Not at all 11/08/2023 2:49 PM EDT Mratha Mccartney [place] Moving or speaking so slowly [...] 1:59 PM EDT Tc from [facility] at [facility] requesting scripts for Continuous Blood Gluc Roller Gold Leaf (FreeStyle Cathryn 2 [place]) device ,Continuous Blood Gluc Sensor (FreeStyle Cathryn 2 Sensor) misc and Precision Anjel Test Stripsit can be Faxed to [phone] documented in this encounter Plan of Treatment Upcoming Encounters Date Type Department Care Team (Late st Contact Info) Description 06/12/2025 10:00 AM EDT Clinical Support [facility] MED & PEDS 505 [place] [address] documented as of this encounter Visit Diagnoses Not on filedocumented in this encounter Care Teams Drier Tender Naphthalene Relationship Specialty Start Date End Date Stan Fletcher MD 505 [place] [address] PCP - General Internal Medicine 08/20/18 documented as of this encounter
--- OUTSIDE RECORDS SUMMARY | 2025-05-22 08:27 | XMS_ITS | Encounter Summary ---
Author Organization [employer] Address [address] [facility] 7t [place] [address] Care Team Providers Care Duplex Trimmer Name Role Phone Stan Fletcher MD Primary Care Provider [phone] Encounter Details Date Type Department Care Team ([facility] Contact Info) Description 11/12/2024 Orders Only [facility] [address] [place] [address] ProviderMarcelle MD Social History Tobacco Use Types [...] ([facility] st Contact Info) Description 06/12/2025 10:00 AM EDT Clinical Support [facility] MED & PEDS 505 [place] [address] documented as of this encounter Procedures Procedure [...] documented as of this encounter Care Teams Duplex Trimmer Relationship Specialty Start Date End Date Stan Fletcher MD 505 [place] [address] PCP - General Internal Medicine 08/20/18 documented as of this encounter
--- OUTSIDE RECORDS SUMMARY | 2025-05-22 08:27 | XMS_ITS | Encounter Summary ---
Author Organization [employer] Address [address] [place] [address] 7 [place] [address] Care Team Providers Care Credit Administration Officer Name Role Phone Stan Fletcher MD Primary Care Provider [phone] Reason for Visit * Reason Onset Date Comments Nurse Triage 08/23/2023 Encounter Details Date Type Department Care Team ([facility] st Contact Info) Description 08/23/2023 Telephone [facility] MED & PEDS 505 [place], [place] [phone] Stan Fletcher MD 505 [place], [place] [phone] Nurse Triage Social History Tobacco Use Types [...] 3:50 PM EST Called pt. Back via educational sign language interpreter #[id number]. Called pt. Asked him if he has any Covid tests at home to test himself for Covid. Pt. States he has a test at home but, he currently at Pharmacy picking up some OTC cough medicine. I will call pt. Back at 430pm to see what Covid test result is as pt. States he lives [place] from [facility]. Called pt. Back via educational sign language interpreter #[id number]. Pt. Took Covid test and it came out Negative. Pt. ShowedASL staff interpreter over video and she states that only the control line is showing and only 1 line on home Covid test. Advised pt. That per Dr. Fletcher he would like pt. To go to Walk in at [facility] tomorrow 08/23/2023 in the am to get his lungs listened to and to assess left lung congestion. Pt. States understanding and will go to walk in at [facility] at 830am when walk in opens. * Telephone Encounter - Vivi Salazar RN - 08/23/2023 2:53 PM EST Called pt. Back via educational sign language interpreter. Machine Coil Assembler #[id number]. Pt. States that he has a productive [...] accepted this outcome Please contact pt @ [phone] Sign Language documented in this encounter Plan of Treatment Upcoming Encounters Date Type Department Care Team ([facility] st Contact Info) Description 06/12/2025 10:00 AM EDT Clinical Support [facility] MED & PEDS [address] [place] [address] documented as of this encounter Visit Diagnoses Not on filedocumented in this encounter Care Teams Credit Administration Officer Relationship Specialty Start Date End Date Stan Fletcher MD 505 [place] [address] PCP - General Internal Medicine 08/20/18 documented as of this encounter
--- OUTSIDE RECORDS SUMMARY | 2025-05-22 08:27 | XMS_ITS | Encounter Summary ---
Author Organization [facility] Address [address] [place] [address] Care Team Providers Care Manufacturing Engineer Chief Name Role Phone Stan Fletcher MD Primary Care Provider [phone] Reason for Visit * Reason Comments Med Refill Encounter Details Date Type Department Care Team ([facility] Contact Info) Description 03/20/2023 Refill [facility] MED & PEDS 505 [place] [address] Stan Fletcher MD 505 [place] [address] Type 2 diabetes mellitus with hyperglycemia, with long-term current use of insulin ([facility]) Social History [...] Upcoming Encounters Date Type Department Care Team ([facility] Contact Info) Description 06/12/2025 10:00 AM EDT Clinical Support [facility] MED & PEDS [address] [place] [address] documented as of this encounter Visit Diagnoses Diagnosis Type 2 diabetes mellitus with hyperglycemia, with long-term current use of insulin ([facility]) documented in this encounter Care Teams Manufacturing Engineer Chief Relationship Specialty Start Date End Date Stan Fletcher MD [address] [place] [address] PCP - General Internal Medicine 08/20/18 documented as of this encounter
--- OUTSIDE RECORDS SUMMARY | 2025-05-22 08:27 | XMS_ITS | Encounter Summary ---
Author Organization [employer] [facility] Address [address] [place] [address] 7 [place] [address] Care Team Providers Care Florist Name Role Phone Stan Fletcher MD Primary Care Provider [phone] Encounter Details Date Type Department Care Team ([facility] Contact Info) Description 08/23/2023 Orders Only [facility] MED & PEDS [address] [place] [address] Stan Fletcher MD 505 [place] [address] Social History Tobacco Use Types Packs/Day Years [...] Encounters Date Type Department Care Team ([facility] Contact Info) Description 06/12/2025 10:00 AM EDT Clinical Support [facility] MED & PEDS 505 [place] [address] documented as of this encounter Visit Diagnoses Not on filedocumented in this encounter Care Teams Florist Relationship Specialty Start Date End Date Stan Fletcher MD 505 [place] [address] PCP - General Internal Medicine 08/20/18 documented as of this encounter
--- OUTSIDE RECORDS SUMMARY | 2025-05-22 08:27 | XMS_ITS | Encounter Summary ---
Author Organization [employer] [facility] Address [address] [place] [address] Care Team Providers Care Retoucher Name Role Phone Stan Fletcher MD Primary Care Provider [phone] Reason for Visit * Reason Comments Med Refill Encounter Details Date Type Department Care Team ([facility] Contact Info) Description 08/29/2022 Refill [facility] MED & PEDS [address] [place] [address] Stan Fletcher MD 505 [place] [address] Chronic pain syndrome Social History Tobacco Use [...] Upcoming Encounters Date Type Department Care Team ([facility] Contact Info) Description 06/12/2025 10:00 AM EDT Clinical Support [facility] MED & PEDS [address] [place], [place] [phone] documented as of this encounter Visit Diagnoses Diagnosis Chronic pain syndrome documented in this encounter Care Teams Retoucher Relationship Specialty Start Date End Date Stan Fletcher MD [address] [place], [place] [phone] PCP - General Internal Medicine 08/20/18 documented as of this encounter
--- OUTSIDE RECORDS SUMMARY | 2025-05-22 08:27 | XMS_ITS | Encounter Summary ---
Author Organization [employer] Address [address] [place] [address] Care Team Providers Care Steam Shovel Operating Engineer Name Role Phone Stan Fletcher MD Primary Care Provider [phone] Reason for Referral * Imaging (Routine) - Authorized Specialty Diagnoses / Procedures Referred By Contac t Referred To Contact Radiology Diagnoses Decreased GFR Procedures US RENAL BI Stan Fletcher MD 505 [place] [address] Phone: tel: fax: [address] Phone: tel: fax: Referral ID Status Reason Start Date Expiration Date V isits Requested Visits Authorized [id number] Authorized 05/07/2025 05/07/2026 1 1 * Imaging (Routine) - Authorized Specialty Diagnoses / Procedures Referred By Contac t Referred To Contact Radiology Diagnoses Transaminitis Procedures US Abdomen Comp w elastography Stan Fletcher MD [address] [place] [address] Phone: tel: fax: [address] Phone: tel: fax: Referral ID Status Reason Start Date Expiration Date V isits Requested Visits Authorized [id number] Authorized 05/06/2025 05/06/2026 1 1 Encounter Details Date Type Department Care Team ([facility] st Contact Info) Description 05/05/2025 Orders Only [facility] MED & PEDS 505 [place] [address] Stan Fletcher MD [address] [place] [address] Transaminitis (Primary Dx); Decreased GFR Social History [...] Description 06/12/2025 10:00 AM EDT Clinical Support [facility] MED & PEDS [address] [place] [address] Scheduled Orders Name Type Priority Associated Diagnoses [...] EDT) Iron 161(H) 45 - 160 mcg/dL [facility] Total Iron Binding Capacity 273 228 - 428 mcg/dL [facility] Percent Iron Saturation 59(H) 15 - 50 % [facility] Unsaturated Iron Binding 112 ug/dL [facility] Blood Venous blood specimen / Unknown 05/07/2025 3:25 PM EDT 05/07/2025 5:39 PM EDT us Stan Fletcher MD LAB BLOOD ORDERABLES Final Result Performing Organization Address [facility]/ZIP Co de Phone Number [facility] [address] [place] [phone] * (ABNORMAL) Ferritin (05/07/2025 3:25 PM EDT) Ferritin 619(H) 20 - 250 ng/mL [facility] Blood Venous blood specimen / Unknown 05/07/2025 3:25 PM EDT 05/07/2025 5:39 PM EDT us Stan Fletcher MD LAB BLOOD ORDERABLES Final Result Performing Organization Address [email or web address]] de Phone Number [facility] [address] [place] [phone] * (ABNORMAL) Prothrombin Time-INR (05/07/2025 3:25 PM EDT) Prothrombin Time 14.0(H) 10.9 - 12.4 SEC [facility] INTERNATIONAL NORM RATIO 1.2(H) 0.9 - 1.1 [facility] Comment:INTERNATIONAL NORMAL IZED RATIO (INR) REFERENCE [...] BLOOD ORDERABLES Final Result Performing Organization Address [facility] Co de Phone Number [facility] [address] [place] [phone] * Immunoglobulins, Quantitative, IgA, IgG, IgM (05/07/2025 3:25 PM EDT) IMMUNOGLOBULIN G 982 600 - 1540 mg/dL [facility] IMMUNOGLOBULIN A 142 70 - 320 mg/dL [facility] Immunoglobulin M 86 50 - 300 mg/dL [facility] Comment:THIS TEST WAS PERFOR MED AT:[facility] [place] [phone] MANRIQUEZ MD Blood Venous blood specimen / Unknown 05/07/2025 3:25 PM EDT 05/07/2025 5:39 PM EDT us Stan Fletcher MD LAB BLOOD ORDERABLES Final Result Performing Organization Address [facility] Co de Phone Number [facility] [address] [place] [phone] documented in this encounter Visit Diagnoses Diagnosis Transaminitis- Primary Nonspecific elevation of levels of transaminase or lactic acid dehydrogenase (LDH) Decreased GFR documented in this encounter Additional Health Concerns Assessment Noted Time PHQ-9 Depression Total Score: 0 11/06/19 25 9:29 AM EDT documented as of this encounter Care Teams Steam Shovel Operating Engineer Relationship Specialty Start Date End Date Stan Fletcher MD [address] [place] [address] PCP - General Internal Medicine 08/20/18 documented as of this encounter
--- OUTSIDE RECORDS SUMMARY | 2025-05-22 08:27 | XMS_ITS | Encounter Summary ---
Author Organization [employer] Address [address] [place] [address] 7 [place] [address] Care Team Providers Care Sales Representative Door To Door Name Role Phone Stan Fletcher MD Primary Care Provider [phone] Reason for Visit * Reason Onset Date Comments Durable Medical Equipment 01/26/2023 Encounter Details Date Type Department Care Team ([facility] Contact Info) Description 01/26/2023 Telephone [facility] MED & PEDS [address] [place], [place] [phone] Stan Fletcher MD [address] [place] [address] Durable Medical Equipment Social History Tobacco Use [...] CCA. For clarification, please contact pt at [phone] (Sign language) documented in this encounter Plan of Treatment Upcoming Encounters Date Type Department Care Team (Late st Contact Info) Description 06/12/2025 10:00 AM EDT Clinical Support [facility] MED & PEDS [address] [place] [address] documented as of this encounter Visit Diagnoses Diagnosis Type 2 diabetes mellitus without complication, with long-term current use of insulin (HCC)- Primary documented in this encounter Care Teams Sales Representative Door To Door Relationship Specialty Start Date End Date Stan Fletcher MD [address] [place] [address] PCP - General Internal Medicine 08/20/18 documented as of this encounter
--- OUTSIDE RECORDS SUMMARY | 2025-05-22 08:28 | XMS_ITS | Encounter Summary ---
Author Organization [employer] Address [address] [place] [address] Care Team Providers Care Customer Account Representative Name Role Phone Stan lFetcher MD Primary Care Provider [phone] Reason for Referral * Consultation (Routine) - Canceled Specialty Diagnoses / Procedures Referred By Contac t Referred To Contact Endocrinology Diagnoses Type 2 diabetes mellitus without complication, with long-term current use of insulin ([facility]) Stan Fletcher MD [address] [place] [address] Phone: tel: fax: Referral ID Status Reason Start Date Expiration Date Visits Requested Visits Authorized [id number] Canceled Specialty Services Required 02/13/2025 02/13/2026 1 1 Encounter Details Date Type Department Care Team ([facility] Contact Info) Description 02/13/2025 Orders [address] [facility] MED & PEDS [address] [place] [address] Stan Fletcher MD [address] [place] [address] Type 2 diabetes mellitus without complication, with [...] Description 06/12/2025 10:00 AM EDT Clinical Support [facility] MED & PEDS [address] [place] [address] Scheduled Referrals Name Type Priority Associated Diagnoses Order Schedule Referral to Endocrinology Outpatient Referral Routine Type 2 diabetes mellitus without complication, with long-term current use of insulin ([facility]) Expected: 02/13/2025 (Approximate), Expires: 02/13/2026 documented as of this encounter Visit Diagnoses Diagnosis Type 2 diabetes mellitus without complication, with long-term current use of insulin (HCC)- Primary documented in this encounter Additional Health Concerns Assessment Noted Time PHQ-9 Depression Total Score: 0 11/06/19 25 9:29 AM EDT documented as of this encounter Care Teams Customer Account Representative Relationship Specialty Start Date End Date Stan Fletcher MD [address] [place] [address] PCP - General Internal Medicine 08/20/18 documented as of this encounter
--- OUTSIDE RECORDS SUMMARY | 2025-05-22 08:28 | XMS_ITS | Encounter Summary ---
Author Organization [employer] Address [address] [place] [address] 7 [place] [address] Care Team Providers Care Web Assistant Name Role Phone Stan Fletcher MD Primary Care Provider [phone] Encounter Details Date Type Department Care Team ([facility] Contact Info) Description 12/07/2022 Orders Only [facility] MED & PEDS [address] [place] [address] Stan Fletcher MD [address] [place] [address] Palpitations (Primary Dx) Social History Tobacco Use [...] Upcoming Encounters Date Type Department Care Team ([facility] Contact Info) Description 06/12/2025 10:00 AM EDT Clinical Support [facility] MED & PEDS [address] [place] [address] documented as of this encounter Visit Diagnoses Diagnosis Palpitations- Primary documented in this encounter Care Teams Web Assistant Relationship Specialty Start Date End Date Stan Fletcher MD [address] [place] [address] PCP - General Internal Medicine 08/20/18 documented as of this encounter
--- OUTSIDE RECORDS SUMMARY | 2025-05-22 08:28 | XMS_ITS | Encounter Summary ---
Author Organization [employer] Address [address] [facility] 7 [place] [address] Care Team Providers Care Senior Construction Project Manager Name Role Phone Stan Fletcher MD Primary Care Provider [phone] Reason for Visit * Reason Onset Date Comments Nurse Triage 02/13/2025 Encounter Details Date Type Department Care Team ([facility] st Contact Info) Description 02/13/2025 Telephone [facility] MEDICINE [address] [place] [address] Stan Fletcher MD [address] [place], [place] [phone] Nurse Triage Social History Tobacco Use Types [...] 10:22 AM EDT Called pt. Via [address]. Pt states that [place] 10[place] it in December [...] acuity questions The caller accepted this outcome. [phone] (Sign Language) documented in this encounter Plan of Treatment Upcoming Encounters Date Type Department Care Team (Late st Contact Info) Description 06/12/2025 10:00 AM EDT Clinical Support [facility] CH[facility] MED & PEDS [address] [place] [address] documented as of this encounter Visit Diagnoses Not on filedocumented in this encounter Additional Health Concerns Assessment Noted Time PHQ-9 Depression Total Score: 0 11/06/19 25 9:29 AM EDT documented as of this encounter Care Teams Senior Construction Project Manager Relationship Specialty Start Date End Date Stan Fletcher MD [address] [place] [address] PCP - General Internal Medicine 08/20/18 documented as of this encounter
--- OUTSIDE RECORDS SUMMARY | 2025-05-22 08:28 | XMS_ITS | Encounter Summary ---
Author Organization [employer] Address [address] [place] [address] 7 [place] [address] Care Team Providers Care Websphere Process Server Developer Name Role Phone Stan Fletcher MD Primary Care Provider [phone] Reason for Visit * Reason Comments Med Refill Encounter Details Date Type Department Care Team ([facility] Contact Info) Description 02/23/2025 Refill [facility] MED & PEDS [address] [place], [place] [phone] Stan Fletcher MD [address] [place] [address] Right sided sciatica Social History Tobacco Use Types Packs/Day Years Used Date Smoking Tobacco: Never Smokeless Tobacco: Never Depression Answer Date Recorded Patient Health Questionnaire-9 Score 0 11/05/2024 Patient Health Questionnaire-9 Score 0 11/05/2024 Last PHQ-9: Questionnaire Data Not on file 0 11/05/2024 Housing Stability Answer Date Recorded What is your housing situation today? I have biran pinzon 11/05/[address] you [facility] Description 06/12/2025 10:00 AM EDT Clinical Support [facility] MED & PEDS [address] [place] [address] documented as of this encounter Visit Diagnoses Diagnosis Right sided sciatica Sciatica documented in this encounter Additional Health Concerns Assessment Noted Time PHQ-9 Depression Total Score: 0 11/06/19 25 9:29 AM EDT documented as of this encounter Care Teams Websphere Process Server Developer Relationship Specialty Start Date End Date Stan Fletcher MD [address] [place] [address] PCP - General Internal Medicine 08/20/18 documented as of this encounter
--- OUTSIDE RECORDS SUMMARY | 2025-05-22 08:28 | XMS_ITS | Encounter Summary ---
Author Organization [employer] Address [address] [facility] 7 [place] [address] Care Team Providers Care Wet Process Technician Name Role Phone Stan Fletcher MD Primary Care Provider [phone] Reason for Visit * Reason Onset Date Comments Medication Question 03/16/2025 Encounter Details Date Type Department Care Team ([facility] Contact Info) Description 03/16/2025 Telephone [facility] MED & PEDS [address] [place], [place] [phone] Stan Fletcher MD 505 [place] [address] Medication Question Social History Tobacco Use Types [...] Pt stated it issmaller. Contact pt at [phone] (ASL) documented in this encounter Plan of Treatment Upcoming Encounters Date Type Department Care Team (Late st Contact Info) Description 06/12/2025 10:00 AM EDT Clinical Support [facility] MED & PEDS [address] [place] [address] documented as of this encounter Visit Diagnoses Not on filedocumented in this encounter Additional Health Concerns Assessment Noted Time PHQ-9 Depression Total Score: 0 11/06/19 25 9:29 AM EDT documented as of this encounter Care Teams Wet Process Technician Relationship Specialty Start Date End Date Stan Fletcher MD [address] [place] [address] PCP - General Internal Medicine 08/20/18 documented as of this encounter
--- OUTSIDE RECORDS SUMMARY | 2025-05-22 08:28 | XMS_ITS | Clinical Summary ---
Author Organization [employer] Address [address] [place] [address] 7 [place] [address] Care Team Providers Care Metal Fitter Name Role Phone Stan Fletcher MD Primary Care Provider [phone] Allergies Active Allergy Reactions Criticality Noted Date [...] misc TEST BLOOD SUGAR FOUR TIMES DAILY 023 Active Livalo 2 MG tabletIndications:Pure hypercholesterolemia Take 1 tablet by mouth in the morning. 90 tablet 3 023 Active senna-docusate sodium (Senokot-S) 8.6-50 MG tabletIndications:Drug- induced constipation Take 2 tablets by mouth if needed at bedtime for constipation. 60 tablet 023 Active polyethylene glycol, PEG, 3350 (MiraLax) 17 GM/SCOOP powderIndications:Drug- induced constipation Take 17 g by mouth in the morning. Take 17 g PO in 8 ounces of water 3 times a day for 3 days, then 17 g PO daily 527 g 2 023 Active docusate sodium (Colace) 100 MG capsule Take 1 capsule by mouth 2 times daily. 023 Active cyanocobalamin (Vitamin B-12) 1000 MCG tablet [...] subcutaneously 3 times Daily 12 mL 11 023 Active Continuous Blood Gluc Bill Poster Installer (FreeStyle Cathryn 2 [place]) deviceIndications:Type 2 diabetes mellitus without complication, with long-term current use of insulin ([facility]) To use daily 1 each 023 Active Continuous Blood Gluc Sensor (FreeStyle Cathryn 2 Sensor) miscIndications:Type 2 diabetes mellitus without complication, with long-term current use of insulin ([facility]) To use daily 2 each 023 Active loratadine (Claritin) 10 MG tablet TAKE ONE TABLET EVERY MORNING 30 tablet 5 023 Active fluticasone (Flovent) 110 MCG/ACT inhaler Inhale 1 puff in the morning and at bedtime. Rinse mouth with water after use to reduce aftertaste and incidence of candidiasis. Do not swallow. 12 g 2 023 Active cyclobenzaprine (Flexeril) 10 MG tablet Take 1 tablet (10 mg) by mouth 3 times daily for 10 days. 30 tablet 023 Active albuterol 108 (90 Base) MCG/ACT inhaler 023 Active triamcinolone (Kenalog) 0.5 % ointment APPLY SPARINGLY TO THE AFFECTED AREA(S) TWICE DAILY 30 g 024 Active insulin aspart (NovoLOG FLEXPEN) 100 UNIT/ML penIndications:Type 2 diabetes mellitus with hyperglycemia, with long-term current use of insulin ([facility]) INJECT 12 UNITS SUBCUTANEOUSLY THREE TIMES DAILY 15 mL 5 024 Active benzonatate (Tessalon) 100 MG capsule TAKE ONE CAPSULE THREE TIMES DAILY IN THE MORNING, AT NOON, AND AT BEDTIME NEEDED FOR COUGH 20 capsule 024 Active methocarbamol (Robaxin) 750 MG tabletIndications:Acute pain of left shoulder TAKE ONE TABLET FOUR TIMES DAILY FOR 10 DAYS 40 tablet 024 Active melatonin 5 MG tabletIndications:Other insomnia One tab once a day. 30 tablet 3 024 Active fluticasone (Flonase) 50 MCG/ACT nasal spray INHALE ONE spary IN EACH NOSTRIL DAILY 16 g 5 024 Active Insulin Lispro (HumaLOG) 100 UNIT/ML solutionIndications:Typ e 2 diabetes mellitus without complication, with long-term current use of insulin ([facility]) Inject 12 Units as directed 3 times daily. 10 mL Active DULoxetine (Cymbalta) [address] capsuleIndications:Pete iation of intervertebral disc between L4 and L5 Take 1 capsule (20 mg) by mouth 2 times daily. Do not crush or chew. 60 capsule Active Continuous Glucose Bill Poster Installer (FreeStyle Cathryn 2 [place]) deviceIndications:Type 2 diabetes mellitus without complication, with long-term current use of insulin ([facility]) Scan sensor every 8 hours 1 each Active Continuous Glucose Sensor (FreeStyle Cathryn 2 Sensor) miscIndications:Type 2 diabetes mellitus without complication, with long-term current use of insulin ([facility]) Apply 1 sensor every 14 days 2 each Active atorvastatin (Lipitor) 40 MG tabletIndications:Pure hypercholesterolemia TAKE ONE TABLET EVERY MORNING 30 tablet 024 Active Lantus SoloStar 100 UNIT/ML pen INJECT 60 UNITS SUBCUTANEOUSLY ONCE DAILY 30 mL Active TechLite Pen [place] 32G X 6 MM mis USE FOUR TIMES DAILY] 100 each Active gabapentin (Neurontin) 300 MG capsule TAKE ONE CAPSULE THREE TIMES DAILY 180 capsule Active nabumetone (Relafen) 750 MG tabletIndications:Acute pain of left shoulder TAKE ONE TABLET TWICE DAILY 60 tablet Active gabapentin (Neurontin) 400 MG capsuleIndications:Pete iation of intervertebral disc between L4 and L5 Take 1 capsule (400 mg) by mouth 3 times daily. 90 capsule 025 2025 Active losartan (Cozaar) 100 MG tabletIndications:Prima ry hypertension Take 1 tablet (100 mg) by mouth Once per day. 30 tablet 11 025 2025 Active hydroCHLOROthiazide 12.5 MG tabletIndications:Prima ry hypertension Take 1 tablet (12.5 mg) by mouth Once per day. 30 tablet 025 2025 Active oxyCODONE-acetaminophen (Percocet) 7.5-325 MG tabletIndications:Acute pain of left shoulder Take 1 tablet by mouth every 6 (six) hours if needed for severe pain. 15 tablet Active dextran 70-hypromellose (artificial tears) 0.1-0.3 % ophthalmic solutionIndications:Sub conjunctival hemorrhage of left eye Administer 1 drop into the left eye if needed in the morning, at noon, and at bedtime for dry eyes. 15 mL 025 2025 Active insulin lispro (HumaLOG KWIKPEN) 100 UNIT/ML injection INJECT 12 UNITS SUBCUTANEOUSLY THREE TIMES DAILY 15 mL Active glipiZIDE (Glucotrol) 5 MG tablet TAKE ONE TABLET THREE TIMES DAILY BEFORE A MEAL 270 tablet 3 Active tiZANidine (Zanaflex) 4 MG tabletIndications:Right sided sciatica TAKE ONE TABLET BY MOUTH EVERY 6 TO 8 HOURS NEEDED. DO NOT EXCEED THREE TABLETS PER 24 HOURS. 60 tablet Active SITagliptin (Januvia) 100 MG tabletIndications:Type 2 diabetes mellitus without complication, with long-term current use of insulin ([facility]) Take 1 tablet (100 mg) by mouth Once per day. 90 tablet 3 Active metoprolol succinate XL (Toprol XL) 25 MG 24 hr tabletIndications:Prima ry hypertension Take 1 tablet (25 mg) by mouth Once per day. Do not crush or chew. 30 tablet 025 2025 Active glucose blood (OneTouch Ultra) test stripIndications:Type 2 diabetes mellitus without complication, with long-term current use of insulin ([facility]) To use 2 times a day 100 strip Active hydrocortisone 0.5 % cream Apply topically 2 times daily. 15 g Active melatonin 5 MG tabletIndications:Prima ry insomnia Take 1 tablet (5 mg) by mouth Once per day. 30 tablet 2 025 Active Active Problems Problem Noted Date Diagnosed Date [...] 10:15 AM EDT Clinical Support [facility] MED & PEDS [address] [place], [place] [phone] Cheryl Melendez, CAPRICE Encounter for immunization 05/15/2025 Travel 05/14/2025 Telephone [facility] MED & PEDS [address] [place], [place] [phone] Stan Fletcher MD Results 05/13/2025 Telephone [facility] MED & PEDS [address] [place], [place] [phone] Veronica Wooten, Melissa 05/12/2025 Telephone [facility] MEDICINE [address] [place] [address] [phone] Stan Fletcher MD 05/12/2025 Travel 05/08/2025 Telephone [facility] MED & PEDS [address] [place] [address] Stan Fletcher MD Appointment Request 05/08/2025 Results Follow-Up [facility] [address] [place] [address] Gloria Tyson, CAPRICE Prothrombin Time-INR, Ferritin, Iron And Total Iron Binding Capacity 05/07/2025 2:45 PM EDT Office Visit [facility] MED & PEDS [address] [place] [address] Stan Fletcher MD Diarrhea, unspecified type (Primary Dx); Primary hypertension; Type 2 diabetes mellitus without complication, with long-term current use of insulin ([facility]); Transaminitis; Irritant contact dermatitis due to other agents; Primary insomnia 05/07/2025 Results Follow-Up [facility] MED & PEDS [address] [place] [address] Cheryl Melendez RN Glucose, Whole Blood, Basic Metabolic Panel, AST, ALT 05/07/2025 Travel 05/07/2025 Telephone [facility] MED & PEDS [address] [place] [address] Stan Fletcher MD Nurse Triage 05/06/2025 Telephone [facility] MED & PEDS [address] [place] [address] Stan Fletcher MD Call Back Request; fyi 05/05/2025 Orders Only [facility] MED & PEDS [address] [place] [address] Stan Moijca MD Transaminitis (Primary Dx); Decreased GFR 05/05/2025 Orders Only GENERIC EXTERNAL DATA DEPARTMENT Provider, Generic External Data 04/29/2025 Telephone [facility] & PEDS [address] [place] [place] [address] Stan Fletcher MD Medication Question 04/22/2025 2:15 PM EDT Office Visit [facility] MED & PEDS [address] [place] [address] Stan Mojica MD Type 2 diabetes mellitus without complication, with long-term current use of insulin ([facility]) (Primary Dx); Primary hypertension; Right hip pain 04/22/2025 Travel 04/21/2025 Telephone [facility] MED & PEDS [address] [place] [address] Stan Fletcher MD Chart Prep 04/21/[address] [address] Stan Fletcher MD Nurse Triage 03/30/2025 Telephone [facility] MED & PEDS [address] [place] [address] Stan Fletcher MD Med Refill 03/19/[address] [address] Stan Fletcher MD Appointment Request 03/16/2025 Telephone [facility] MED & PEDS [address] [place] [address] Stan Fletcher MD Medication Question 03/04/2025 Telephone [facility] MED & PEDS [address] [place] [address] Stan Fletcher MD Medication Question 03/03/[address] [address] Stan Fletcher MD Nurse Triage 03/02/2025 Refill [facility] MED & PEDS [address] [place] [address] Stan Fletcher MD Right sided sciatica 02/25/2025 Telephone [facility] MED & PEDS [address] [place] [address] Stan Fletcher MD Referral 02/24/[address] [address] Stan Fletcher MD Appointment Request 02/23/2025 Telephone [facility] MED & PEDS [address] [place] [address] Stan Fletcher MD Medication Question 02/23/2025 Refill [facility] MED & PEDS [address] [place] [address] Stan Fletcher MD Right sided sciatica from [...] [facility] [address] [place] [address] Health Maintenance Due Date Last Done Comments [...] of insulin ([facility]) POCT GLUCOSE Routine 04/22/2025 4:07 PM EDT Type 2 diabetes mellitus without complication, with long-term current use of insulin ([facility]) LIPID PANEL, STANDARD Routine 11/12/2024 11:34 AM [...] BLOOD ORDERABLES Final Result Performing Organization Address [facility]/ZIP Co de Phone Number [facility] [address] [place] [phone] * (ABNORMAL) Iron And Total Iron [...] BLOOD ORDERABLES Final Result Performing Organization Address City/[facility]/ZIP Co de Phone Number [facility] [address] [place] [address] [phone] * (ABNORMAL) Prothrombin Time-INR (05/07/2025 3:25 PM EDT) Pathologist [facility] Prothrombin Time 14.0(H) 10.9 - 12.4 SEC [...] BLOOD ORDERABLES Final Result Performing Organization Address City/[facility]/ZIP Co de Phone Number [facility] [address] [place] [phone] * Immunoglobulins, Quantitative, IgA, IgG, IgM (05/07/2025 3:25 PM EDT) Pathologist [facility] IMMUNOGLOBULIN G 982 600 - 1540 mg/dL [facility] IMMUNOGLOBULIN A 142 70 - 320 mg/dL [facility] Immunoglobulin M 86 50 - 300 mg/dL [facility] Comment:THIS TEST WAS PERFOR MED AT:[email or web address] [address] [phone] MANRIQUEZ MD Blood Venous blood specimen / Unknown 05/07/2025 3:25 PM EDT 05/07/2025 5:39 PM EDT Stan Fletcher MD LAB BLOOD ORDERABLES Final Result [facility] [address] [place] [phone] * (ABNORMAL) Ferritin (05/07/2025 3:25 PM EDT) Ferritin 619(H) 20 - 250 ng/mL [facility] Blood Venous blood specimen / Unknown 05/07/2025 3:25 PM EDT 05/07/2025 5:39 PM EDT us Stan Fletcher MD LAB BLOOD ORDERABLES Final Result Performing Organization Address [facility] Co de Phone Number [facility] [address] [place] [phone] * (ABNORMAL) ALT (05/05/2025 11:40 AM EDT) Pathologist [facility] Alanine Aminotransferase 72(H) 0 - 40 U/L [facility] 05/05/2025 11:4 0 AM EDT 05/05/2025 11:40 AM EDT us Generic External Data Provider LAB BLOOD ORDERAB LES Final Result Performing Organization Address [facility] Phone Number [facility] [address] [place] [phone] * (ABNORMAL) AST (05/05/2025 11:40 AM EDT) Pathologist [facility] Aspartate Amino Transferase 49(H) 5 - 37 U/L [facility] 05/05/2025 11:4 0 AM EDT 05/05/2025 11:40 AM EDT us Generic External Data Provider LAB BLOOD ORDERAB LES Final Result Performing Organization Address [facility] Co de Phone Number [facility] [address] [place] [phone] * (ABNORMAL) Basic Metabolic Panel (05/05/2025 [...] Kidney Disea se: Estimated GFR < 60 mL/min/1.25a0Eqwley Kidney Disease: Estimated GFR < 15 mL/min/1.73m2 Glucose 100 60 - 115 mg/dL [facility] Calcium 9.4 8.4 - 10.2 mg/dL [facility] 05/05/2025 11:4 0 AM EDT 05/05/2025 11:40 AM EDT us Generic External Data Provider LAB BLOOD ORDERAB LES Final Result Performing Organization Address [facility]/ZIP Co de Phone Number [facility] [address] [place] [phone] * Glucose, Whole Blood (05/05/2025 10:14 AM EDT) Glucose, Whole Blood 78 60 - 115 mg/dL [facility] Comment:METER #: [id number] Testing performed in the Endocrinology Department [address] , [address], [facility]. 05/05/2025 10:1 4 AM EDT 05/05/2025 10:17 AM EDT us Generic External Data Provider LAB BLOOD ORDERAB LES Final Result Performing Organization Address [facility]/ZIP Co de Phone Number [facility] [address] [place] [phone] * (ABNORMAL) POCT HGB A1C (04/22/2025 4:07 PM EDT) Pathologist [facility] Hemoglobin A1C 6.7(A) 4.0 - 5.7 % QC Media Lot # [id number] Lot# Expiration Date Blood 04/22/2025 4:07 PM EDT Stan Fletcher MD POINT OF CARE TEST ENTER/ED IT ORDERABLES Final Result * (ABNORMAL) POCT Glucose (04/22/2025 4:07 PM EDT) Pathologist [facility] Glucose Blood, POC 248(A) 60 - 200 mg/dL QC Media Lot # [id number] Lot# Expiration Date Comment:random Blood Capillary blood specimen / Unknown 04/22/2025 4:07 PM EDT Stan Fletcher MD POINT OF CARE TEST ENTER/ED IT ORDERABLES Final Result * (ABNORMAL) Lipid Panel, Standard (11/12/2024 11:34 AM EDT) [facility] Triglycerides 176(H) <150 mg/dL [facility] Comment:Desirable Triglyceri de: less [...] mg/dL HDL Cholesterol 32(L) >40 mg/dL [facility] Comment:Desirable HDL: great er than 40 mg/dL Note: This HDL assay may give artificially low results in patients with liver disease. Blood Venous blood specimen / Unknown 11/12/2024 11:34 AM EDT 11/12/2024 2:15 PM EDT Stan Fletcher MD LAB BLOOD ORDERABLES Final Result Performing Organization Address [facility] Co de Phone Number [facility] [address] [place] [phone] * Diabetes Eye Exam (11/11/2024 4:01 PM EDT) us Historical Provider HEALTH MAINTENANCE Final Result * Albumin, Random Urine W/Creatinine (11/05/2024 10:17 AM EDT) Creatinine, Urine 98.24 mg/dL [facility] Microalbumin Urine 20.0 mg/L [facility] Microalbum Creatinine Ratio Ur 20.3 <30 ug/mg cr [facility] Comment:Albumin/Creatinine R atio Reference Ranges: Normal: < 30 ug/mg creatinine Microalbuminuria: 30 - 300 ug/mg creatinineClinical Albuminuria: > 300 ug/mg creatinine Urine (Urine, Random) 11/05/2024 10:17 AM EDT 11/05/2024 2:07 PM EDT us Stan Fletcher MD LAB URINE ORDERABLES Final Result Performing Organization Address [facility] Co de Phone Number [facility] [address] [place] [phone] * (ABNORMAL) Cologuard?? colon cancer screening (12/06/2023 7:58 AM EDT) Cologuard Result Positive( A) Negative 12/13/2023 5:48 PM EDT [employer] (CLIA #:[id number]) Comment: POSITIVE TEST RESULT. A positive Cologuard [...] Goel. et al, N Engl J Med 2014;370(14):3689-8432.) Cologuard may produce a false negative or false positive result (no colorectal cancer or precancerous polyp present at colonoscopy follow up). A negative Cologuard test result does not guarantee the absence of CRC or advanced adenoma (pre-cancer). The current Cologuard screening interval is every 3 years. ([place] [employer] and U.S. Multi-Society Task Force). Cologuard performance data in a 10,000 patient pivotal study using colonoscopy as the reference method can be accessed at the following location: [email or web address]. Additional description of the Cologuard test process, warnings and precautions can be found at [email or web address]. Stool specimen (specimen) Rectal contents / Unknown 12/06/2023 7:58 AM EDT 12/07/2023 10:55 AM EDT us Thevenin Beauzile MD LAB MOLECULAR DIAGNOSTICS O RDERABELINDA Final Result [employer] (CLIA #:[id number]) Beba Zamoramarycarm[place] [address], [place] [phone] from Last 3 Months or Most Recently Relevant to Health Maintenance Insurance 2022 [facility] [address] [place], [place] [facility] DUAL COMPLETE HMO [facility] [place], [place] [facility] [place], [place] Care Teams Metal Fitter Relationship Specialty Start Date End Date Stan Fletcher MD [address] [place] [phone] PCP - General Internal Medicine 08/20/18
--- OUTSIDE RECORDS SUMMARY | 2025-05-22 08:28 | XMS_ITS | Encounter Summary ---
Author Organization [facility] Address [address] [place] [address] [place] [address] Care Team Providers Care Director [employer] Name Role Phone Stan Fletcher MD Primary Care Provider [phone] Reason for Visit * Reason Comments Med Refill Encounter Details Date Type Department Care Team ([facility] Contact Info) Description 01/09/2023 Refill [facility] MED & PEDS [address] [place] [address] Stan Fletcher MD [address] [place] [address] Social History Tobacco Use Types Packs/Day Years [...] Upcoming Encounters Date Type Department Care Team ([facility] Contact Info) Description 06/12/2025 10:00 AM EDT Clinical Support [facility] MED & PEDS [address] [place] [address] documented as of this encounter Visit Diagnoses Not on filedocumented in this encounter Care Teams Director [employer] Relationship Specialty Start Date End Date Stan Fletcher MD [address] [place] [phone] PCP - General Internal Medicine 08/20/18 documented as of this encounter
[2025-05-22 08:44] VITALS: BP 110/66; PULSE 53; O2SAT 98; BMI 29.8
[2025-05-22 08:56] LABS: Glucose, Whole Blood 112 mg/dL (60-115)
== END 2025-05-22 09:22 | disposition home or self-care (01) ==
LOC: HO.ENCR 08:15
PROVIDERS: PCP Internal Medicine; Visit Provider Physician Assistant Medical
DX: E11.9 Type 2 diabetes mellitus without complications (principal); Z79.4 Long term (current) use of insulin; R74.8 Abnormal levels of other serum enzymes; N18.31 Chronic kidney disease, stage 3a

== ENCOUNTER → 2025-05-22 08:14 | Outpatient (BNVA) | payer MEDICARE, MEDICAID, SELFPAY | PROVIDERS: PCP Internal Medicine; Visit Provider Physician Assistant Medical | DX: E11.22 Type 2 diabetes mellitus with diabetic chronic kidney disease (principal); N18.31 Chronic kidney disease, stage 3a; R74.8 Abnormal levels of other serum enzymes; Z79.4 Long term (current) use of insulin | CPT/HCPCS: 82947; 99212 ==

== ENCOUNTER 2025-06-22 10:49 | Outpatient (REF) | payer MEDICARE, MEDICAID, SELFPAY ==
[2025-06-22 12:29] LABS: Estimated Glomerular Filt Rate 53
--- OUTSIDE RECORDS SUMMARY | 2025-06-22 13:19 | XMS_ITS | Data Portability ---
Author Organization [facility], [place] [facility] [facility] Address [address] [place] [id number] Care Team Providers Care Relocation Manager Name Role Phone [facility] Referring Provider Assessment No assessment recorded. Plan of Treatment Reminders Order Date Submit Date Provider Last Modified By Organization Details Last Modified Time Details Appointments None recorded. Lab None recorded. Referral None recorded. Procedures None recorded. Surgeries None recorded. Imaging None recorded. Medication Orders azithromyci n 250 mg tablet 2022 023 [id number], [address] [place], [address], 10:33:17 Flovent HFA 44 mcg/actuati on aerosol inhaler 2022 023 [id number], [address] [place], [address], 10:33:17 Patient TargetsNo targets recorded. Patient InstructionsNo [...] Diagnosis SNOMED-CT Code Diagnosis ICD10 Code Diagnosis IMO Codes Diagnosis Note [id number] Kiana Rojas MD Main - [facility]ED [address] [place] [phone] 05/23/2023 10:14:23 05/24/2023 00:31:53 Cough [id number] R05.9 I provided real -time medical direction via phone for this encounter, and was available for additional phone based assistance as needed. I have reviewed and agree with the Assessment and Plan as documented by the Cranberry Farm Supervisor. 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 ................... ................... ................... ................... ................... ................... ................... ........ CRC Nursing Assessment: Comments: Reviewed = Deuce VASQUES ................... ................... ................... ................... ................... ................... ................... ........ [employer]berry [employer] Supervisor Note From Isaiah Green: Pt reports that he has been having a productive cough for several day and SOB, was seen at ed yesterday was placed on MDI, and oral prednisone. States that he didn t like the prednisone and wants to stop taking it. On scene vs taken and 12l done [facility] was called pt advised to stop taking prednisone and inhaled steroid and ABX RX called in and was advised to go back to ED if symptoms don t get better. ................... ................... ................... ................... ................... ................... ................... ........ Disposition: Fulfilled Kiana Rojas MD [address] [facility],[address], [place], [address], [employer] 05/23/2023 23:34:00
== END 2025-06-22 10:50 | disposition home or self-care (01) ==
LOC: HO.LAB 10:49
PROVIDERS: Visit Provider Physician Assistant Medical
DX: M51.26 Other intervertebral disc displacement, lumbar region (principal); E11.9 Type 2 diabetes mellitus without complications; Z98.1 Arthrodesis status; M79.605 Pain in left leg; M79.604 Pain in right leg; Z79.899 Other long term (current) drug therapy
CPT/HCPCS: 36415; 82565; 99212

== ENCOUNTER 2025-06-22 14:13 | Outpatient (AMB) | payer MEDICARE, MEDICAID, SELFPAY ==
--- NOTE | 2025-06-22 14:16 | A.SPINEOV_ITS ---
Intake Visit Reasons: back pain Intake Note: Mr. Escobar is here today c/o back pain. Studio Technician Video Operator Required: Yes Studio Technician Video Operator Language: Bangladeshi Sign Language Allergies bee pollen (BEE STINGS) Allergy (Severe, Verified 05/22/25 08:44) SWELLING and facial swelling Sulfa (Sulfonamide Antibiotics) (SULFA (SULFONAMIDE ANTIBIOTICS)) Allergy (Severe, Verified 05/22/25 08:44) swelling, hives acetaminophen (From Percocet) Allergy (Verified 05/22/25 08:44) Palpitations orange juice Allergy (Verified 05/22/25 08:44) Blister oxycodone (From Percocet) Allergy (Verified 05/22/25 08:44) Palpitations prednisone Allergy (Verified 05/22/25 08:44) heart palpitation, raises glucose levels simvastatin Allergy (Verified 05/22/25 08:44) Hives adhesive Adverse Reaction (Intermediate, Verified 05/22/25 08:44) Rash, burning, from EKG stickers Assessment & Plan Assessment & Plan (1) Lumbar disc herniation: Code(s): M51.26 - Other intervertebral disc displacement, lumbar region Category: Medical Plan This visit was done with help of financial health counselor [id number]. 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 He is also status post left L5- S1 microdiskectomy done earlier this year for herniated disc. He comes in today with complaints of 3 weeks of right-sided primarily, but bilateral leg pain which goes down his anterior thigh into his calf and foot. It started all of a sudden when he was doing an oil change on his car. Since then it has been quite intense when he has been standing and walking at work. He does lift boxes at work but they are no more than 10 lb. He is having a very hard time sleeping at night. He was taking ibuprofen but that did not help much so we switched to Tylenol and gabapentin. The gabapentin seems to help the best. On exam, he is not uncomfortable, I was able to test his straight leg raise to about 40 degrees and it did generate pain at that level. His strength was full with the exception of some give-way weakness secondary to pain. His gait is slightly antalgic. Because of his history of herniating discs around his fusions I will order a new MRI with and without gadolinium of the lumbar spine. I did warn him that sometimes insurance companies require more than 3 weeks of pain and a trial of conservative management before obtaining imaging, but he was fairly insistent that it feels like a herniated disc. I suspect he is correct. Total amount of time spent in this visit was 20 minutes in discussion of symptoms, ordering imaging results and subsequent plan of care Mark Martinez MD,PhD [facility] Orders: Orders MR lumbar spine wo/w con Today M51.26 - Other intervertebral disc displacement, lumbar region Coding Level of Care Code Est Pt Level 3 (52010) Diagnoses Lumbar disc herniation M51.26
== END 2025-06-22 15:38 | disposition home or self-care (01) ==
LOC: HO.HNS 14:14
PROVIDERS: PCP Internal Medicine; Visit Provider Physician Assistant
DX: M51.26 Other intervertebral disc displacement, lumbar region (principal)
CPT/HCPCS: 99213

== ENCOUNTER 2025-07-07 08:48 | Outpatient (AMB) | payer MEDICARE, MEDICAID, SELFPAY ==
--- NOTE | 2025-07-07 09:21 | A.OFFVIS_ITS ---
Intake Intake Visit Reasons: 60 mins Curer Acid Drum Required: Yes Curer Acid Drum Language: Grounds Crew Supervisor Name: [id number] Accompanied by: Self / Same As Patient Allergies bee pollen (BEE STINGS) Allergy (Severe, Verified 05/22/25 08:44) SWELLING and facial swelling Sulfa (Sulfonamide Antibiotics) (SULFA (SULFONAMIDE ANTIBIOTICS)) Allergy (Severe, Verified 05/22/25 08:44) swelling, hives acetaminophen (From Percocet) Allergy (Verified 05/22/25 08:44) Palpitations orange juice Allergy (Verified 05/22/25 08:44) Blister oxycodone (From Percocet) Allergy (Verified 05/22/25 08:44) Palpitations prednisone Allergy (Verified 05/22/25 08:44) heart palpitation, raises glucose levels simvastatin Allergy (Verified 05/22/25 08:44) Hives adhesive Adverse Reaction (Intermediate, Verified 05/22/25 08:44) Rash, burning, from EKG stickers HPI Comprehensive Diabetes Asmnt General Date of last retinal or dilated eye exam 07/03/25 Diabetes Eye Exam Yes Retinal eye exam-negative Date of last ophthalmology visit 07/03/25 Most Recent Diabetes Results: Microalb/Creat Ratio, (<30) 20.3 ug/mg cr 11/05/24 Cholesterol, (<200) 116 mg/dL 11/12/24 HDL Cholesterol, (>40) 32 mg/dL L 11/12/24 Triglycerides, (<150) 176 mg/dL H 11/12/24 Creatinine, (0.5-1.4) 1.36 mg/dL 06/22/25 BUN, (9-16) 32 mg/dL H 05/05/25 Sodium, (135-145) 142 mmol/L 05/05/25 Potassium, (3.3-5.1) 4.4 mmol/L 05/05/25 Chloride, (96-108) 108 mmol/L 05/05/25 Carbon Dioxide, (22-29) 27 mmol/L 05/05/25 Calcium, (8.4-10.2) 9.4 mg/dL 05/05/25 AST, (5-37) 49 U/L H 05/05/25 ALT, (0-40) 72 U/L H 05/05/25 Total Protein, (6.5-8.0) 6.8 g/dL 06/26/23 Albumin, (3.5-5.0) 4.0 g/dL 06/26/23 [facility] Medical History (Updated 05/22/25 @ 13:06 by BRANDON Kohli) CKD stage 3a, GFR 45-59 ml/min Elevated liver enzymes Controlled type 2 diabetes mellitus with insulin therapy Palpitations Chest pain Back pain Wears dentures Chronic pain syndrome Personal history of COVID-19 Hx of renal calculi Elevated cholesterol HTN (hypertension) Seasonal allergies Deaf Diabetes Surgical History Hx of shoulder surgery H/O colonoscopy Hx of lumbar discectomy History of carpal tunnel surgery of left wrist (03/27/24) History of lumbar surgery (12/25/22) S/P placement of nerve stimulator Hx of cholecystectomy History of right inguinal hernia repair (~12/29/19) History of lithotripsy History of bilateral inguinal hernia repair Family History Mother History of lung cancer Social History Household Members: Significant Other Housing: Apartment Are you a primary manager intensive care unit to a significant other at home: No Do you presently have visiting nurse or other home services: No 75 years or older and lives alone: No Alcohol intake: current Alcohol intake frequency: does not drink Patient Tobacco Use Status: Never used Tobacco e-Cigarette/Vaping Use: Never Used Advance Directives Date on File: 12/27/22 service: No Current occupational status: employed Current occupation: [employer] Assessment & Plan Assessment & Plan (1) Controlled type 2 diabetes mellitus with insulin therapy: Code(s): E11.9 - Type 2 diabetes mellitus without complications; 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 Assess patient education level/literacy/barriers, patient's last A1c 6.8% in April 2025. Patient was referred to Diabetes education for Dexcom G7 trial. Patient reports he had tried Cathryn 3+ but it caused skin irritation. At today's visit patient declined to try Dexcom G7 sensor. He has only interest in Eversence CGM. Patient reports that company had sent him adhesive patch that did not cause irritation. Patient did state at today's visit he has glucometer, he does not check glucose every day despite being on MDI. Denies signs and symptoms of hypoglycemia At this time there is no provider that can insert Eversence at [facility]. At last visit with endocrine provider she reports that she will reach out to Eversence rep. Patient also reports that he recently stopped hydrochlorothiazide, recommended to patient he discuss stopping medication with his PCP Patient questions/concerns, patient has follow-up visit with Areli TAYLOR on 07/10/25. He will be due for next A1c. The patient met all learning objectives and was able to verbalize understanding and provide teach back of education topics discussed . The patient was provided with the opportunity to ask questions and all questions were answered. Topics covered in today?s session included: Introduction to Nutrition Importance of healthy diet in managing DM Diet is personalized to individual preference Review food groups Carbohydrates: What is a carbohydrate/Which food/food groups are considered carbohydrates Effect of carbohydrates on blood glucose Plate method Meal planning Medications (If applicable) * Name of medication? * Dosing/administration instructions? * Mechanism of action? * Potential side effects? * Potential adverse reaction and appropriate treatment? * Review onset, peak, duration Assess for concerns re: insurance coverage, cost, barriers to compliance Insulin/Injectables (If applicable) * Storage/care of insulin?? * Injection sites? * Site rotation? * Onset, peak, duration * Drawing up insulin? * Injecting insulin/other injectables? * Sharps disposal Continuous blood glucose monitoring (if applicable) Hypoglycemia and Hyperglycemia * Signs and symptoms? * Causes?? * Treatment? * Preventing hypoglycemia? * When to seek medical attention Patient reports he treats hypoglycemia with apple juice, carries chocolates with him. I did explain to him that treating with protein and fat when glucose is low can prolong episode of hypoglycemia. Patient stated the chocolate works Target Goals: * Monitoring and knowing your A1C. ?Patient was receptive to information provided and participated in the discussion. Asked?appropriate questions and demonstrated good understanding of the topics discussed.? ? Educational Materials: The patient was provided with the following written educational materials: Healthy plate handout Comprehension of Instructions: fair Readiness to make changes:? Pre contemplation How confident they feel about making changes:poor Portions of this note were created using voice recognition software, please excuse any words or phrases that may have been misinterpreted. Coding Level of Care Code Est Pt Level 1 (10754) Diagnoses Controlled type 2 diabetes mellitus with insulin therapy E11.9; Z79.4
== END 2025-07-07 10:42 | disposition home or self-care (01) ==
LOC: HO.ENCR 08:49
PROVIDERS: PCP Internal Medicine; Visit Provider Registered Nurse Diabetes Educator
DX: E11.9 Type 2 diabetes mellitus without complications (principal); Z79.4 Long term (current) use of insulin

== ENCOUNTER → 2025-07-07 08:48 | Outpatient (BNVA) | payer MEDICARE, MEDICAID, SELFPAY | PROVIDERS: PCP Internal Medicine; Visit Provider Registered Nurse Diabetes Educator | DX: E11.9 Type 2 diabetes mellitus without complications (principal); Z79.4 Long term (current) use of insulin | CPT/HCPCS: 99211 ==

== ENCOUNTER 2025-07-13 07:45 | Outpatient (REF) | payer MEDICARE, MEDICAID, SELFPAY ==
--- NOTE | ~2025-07-13 | US_ITS ---
EXAMINATION: US ABDOMEN COMPLETE WITH LIVER ELASTOGRAPHY HISTORY: ELEVATED TRANSAMINASE LEVELS TECHNIQUE: Real-time grayscale ultrasound imaging of the abdomen was performed and images were reviewed. COMPARISON: There are no prior studies available for comparison. FINDINGS: Liver: The right lobe of the liver measures 13.2 cm in size. The left lobe of the liver measures 9.0 cm in size. The liver demonstrates increased echotexture, consistent with steatosis. No focal mass or intrahepatic biliary ductal dilatation is identified. There is normal hepatopedal flow in the portal vein. Ultrasound elastography of the liver was performed with 10 separate measurements of the liver parenchyma with the patient in the supine position. Measurements were obtained approximately 2 cm below Amanda's capsule and perpendicular to the capsule. The median shear wave velocity is 1.52 m/s. The interquartile range/median (IQR/median) is 0.11. Gallbladder and biliary tree: The gallbladder is surgically absent. The common bile duct is normal in caliber measuring 4 mm. Kidneys: The right kidney measures 10.3 cm in length. The left kidney measures 10.1 cm in length. The kidneys are unremarkable, without evidence of masses, hydronephrosis, or calculi. Pancreas: The pancreas is obscured by bowel gas. Spleen: The spleen is normal in size and contour, measuring 10.2 cm in length. Abdominal aorta and inferior vena cava: The visualized portions of the abdominal aorta and inferior vena cava are normal in caliber. There is no free fluid in the abdomen. US/US abdomen comp w elastography IMPRESSION: Hepatic steatosis. The median shear wave velocity in the liver is 1.52 m/s, corresponding to a median liver stiffness of 7.03 kPa. The IQR/median value is 0.11. This is indicative of a quality data set. Findings are indicative of a low elastography value which rules out advanced chronic liver disease in asymptomatic patients. REFERENCE: Society of Radiologists in Ultrasound Liver Stiffness Thresholds (2020): LIVER STIFFNESS THRESHOLDS: *Shear wave velocity less than 1.3 m/s (Liver Stiffness equal or less than 5 kPa): High probability of being normal. *Shear wave velocity less than 1.7 m/s (Liver Stiffness less than 9 kPa): In the absence of other known clinical signs, rules out compensated advanced chronic liver disease. *Shear wave velocity between 1.7-2.1 m/s (Liver Stiffness 9-13 kPa): Suggestive of compensated advanced chronic liver disease but need further test for confirmation. *Shear wave velocity between 2.1-2.4 m/s (Liver Stiffness 13-17 kPa): Rules in compensated advanced chronic liver disease. *Shear wave velocity greater than 2.4 m/s (Liver Stiffness over 17 kPa): Suggestive of clinically significant portal hypertension. QUALITY OF DATA SET: *IQR/Median value equal or less than 0.15 implies a quality data set. *IQR/Median value over 0.15 implies a poor quality data set. SIGNIFICANT CHANGE FROM PRIOR EXAM: Significant change if liver stiffness measurement is 10% or greater from prior exam. OTHER CONSIDERATIONS: The stage of liver fibrosis may be overestimated in the setting of acute hepatitis, liver inflammation, elevated liver function tests, hepatic vascular congestion, obstructive cholestasis, non-fasting state, and infiltrative diseases such as amyloidosis and lymphoma. In some patients with NAFLD, the liver stiffness thresholds for compensated advanced chronic liver disease may be lower. In causes other than viral hepatitis and NAFLD, liver stiffness thresholds are not well established. Electronically signed by: Michael Salomon MD 07/13/2025 09:32 AM EST
--- OUTSIDE RECORDS SUMMARY | 2025-07-13 07:48 | XMS_ITS | Encounter Summary ---
Author Organization [employer] Address [address] [facility] 7 [place] [address] Care Team Providers Care Filling And Stapling Machine Operator Name Role Phone Stan Fletcher MD Primary Care Provider [phone] Reason for Visit * Reason Onset Date Comments Med Refill 11/05/2023 Encounter Details Date Type Department Care Team ([facility] st Contact Info) Description 11/05/2023 Telephone [facility] MEDICINE [address] [place] [address] Stan Fletcher MD [address] [place], [place] [phone] Med Refill Social History Tobacco Use Types [...] 2:49 PM EDT Martha Mccartney MA * How difficult have these problems made it for you to do your work, take care of things at home, or get along with other people? Answer Date of Assessment Author Not difficult at all 11/08/2023 2:49 PM EDT Martha Novak MA * Over the past 2 weeks, how often have you been bothered by any of the following problems? Question Answer Date of Assessment Author Little interest or pleasure in doing things Not at all 11/08/2023 2:49 PM Martha Harrington MA Feeling down, depressed, or hopeless Not at all 11/08/2023 2:49 PM SESART Martha Mccartney MA Trouble falling or staying asleep, or sleeping too much Nearly every day 11/08/2023 2:49 PM SESART Martha Mccartney MA Feeling tired or having little energy More than half the days 11/08/2023 2:49 PM SESART Martha Mccartney MA Poor appetite or overeating Not at all 11/08/2023 2:49 PM Martha Harrington MA Feeling bad about yourself - or [...] 1:59 PM EDT Tc from [facility] at [facility] requesting scripts for Continuous Blood Gluc Marriage Counselor Minister (FreeStyle Cathryn 2 [place]) device ,Continuous Blood Gluc Sensor (FreeStyle Cathryn 2 Sensor) misc and Precision Anjel Test Stripsit can be Faxed to [phone] documented in this encounter Plan of Treatment Upcoming Encounters Date Type Department Care Team (Late st Contact Info) Description 07/13/2025 2:30 PM EST Office [facility] [address] [place] [address] Stan Fletcher MD [address] [place] [address] documented as of this encounter Visit Diagnoses Not on filedocumented in this encounter Care Teams Filling And Stapling Machine Operator Relationship Specialty Start Date End Date Stan Fletcher MD [address] [place] [address] PCP - General Internal Medicine 08/20/18 documented as of this encounter
--- OUTSIDE RECORDS SUMMARY | 2025-07-13 07:48 | XMS_ITS | Encounter Summary ---
Author Organization [employer] Address [address] [facility] [address] [place] [address] Care Team Providers Care Fire Apparatus Engineer Name Role Phone Stan Fletcher MD Primary Care Provider [phone] Reason for Visit * Reason Onset Date Comments triage 06/26/2025 Encounter Details Date Type Department Care Team ([facility] Contact Info) Description 06/26/2025 Telephone [facility] MEDICINE [address] [place] [address] Stan Fletcher MD [address] [place] [address] triage Social History Tobacco Use Types Packs/Day Years [...] encounter Miscellaneous Notes * Telephone Encounter - Hannah Vincent RN - 06/26/2025 11:04 AM EST Telephone call to pt via [employer] purple relay [phone]. Pt reports ongoing daily episodes of diarrhea, states it happens every morning once abotu 1-2 hrs after taking AM meds. Denies blood in the stool, describes stool as loose, sometimes watery, brown. Denies changes in meds/diet. He confirms eating and drinking normally. He says the diarrhea has happened for several months, spoke with Dr. Fletcher about it in April 2025, had colonoscopy 12/2024, thinks the diarrhea started sometime after the colonoscopy. He reports he did the stool panel that Dr. Fletcher ordered 04/2025 but per [facility], this was cancelled due to specimen not being sent in preservative. Harness Cutter advised pt: - call GI doctor and schedule follow up appt - repeat stool sample, will pend order to PCP - scheduled follow up with PCP in 2 weeks to review results and discuss plan of care Scheduled pt for 07/13/25 (also has US that day). Gave red flags and reasons to call back, educatedon home care measures: staying well hydrated with water/Gatorade or similar, eating bland diet. Pt in agreement with plan. Called [facility] microlab. They state that the sample was collected incorrectly thus was not processed. Upon collection, it needs to be placed in an orange cap specimen container within 2 hrs, however it was not. Unclear why not - [facility] lab is going to call [facility] Lab to clarify that the pt needs written instructions about how to collect. --- Protocol Used: Diarrhea (Adult) Protocol-Based Disposition: See in Office or Video Visit within 2 Weeks Positive Triage Question: * Diarrhea is a chronic symptom (recurrent or ongoing AND lasting > 4 weeks) * All higher-acuity triage questions were negative Care Advice Discussed: * Fluid Therapy During Mild to Moderate Diarrhea * Food and Nutrition During Mild to Moderate Diarrhea * Wash Your Hands * Reasons To Call Back - Signs of dehydration occur (such as no urine over 12 hours, very dry mouth, lightheaded, etc.) - Moderate diarrhea lasts more than 2 days - Diarrhea lasts over 7 days - You become worse * Telephone Encounter - Larissa Cook - 06/26/2025 9:49 AM EST Symptom: Diarrhea Outcome: Schedule an appointment to be seen within 24 hours Reason: Caller denied all higher acuity questions The caller accepted this outcome. PCP DR. Chen documented in this encounter Plan of Treatment Upcoming Encounters Date Type Department Care Team ([facility] st Contact Info) Description 07/13/2025 2:30 PM EST Office Visit [facility] MED & PEDS [address] [place] [address] Stan Fletcher MD [address] [place] [address] Scheduled Orders Name Type Priority Associated Diagnoses Orde r Schedule Stool - Gastrointestinal panel Microbiology Routine Diarrhea, unspecified type Expected: 06/26/2025 (Approximate), Expires: 06/26/2026 documented as of this encounter Visit Diagnoses Diagnosis Diarrhea, unspecified type documented in this encounter Additional Health Concerns Assessment Noted Time PHQ-9 Depression Total Score: 0 11/06/19 25 9:29 AM EDT documented as of this encounter Care Teams Fire Apparatus Engineer Relationship Specialty Start Date End Date Stan Fletcher MD [address] [place] [id number] PCP - General Internal Medicine 08/20/18 documented as of this encounter
--- OUTSIDE RECORDS SUMMARY | 2025-07-13 07:48 | XMS_ITS | Encounter Summary ---
Author Organization [employer] Address [address] [facility] 7 [place] [address] Care Team Providers Care Cargo Tank Mechanic Name Role Phone Stan Fletcher MD Primary Care Provider [phone] Reason for Visit * Reason Onset Date Comments Medication Question 04/29/2025 Encounter Details Date Type Department Care Team ([facility] Contact Info) Description 04/29/2025 Telephone [facility] MED & PEDS [address] [place], [place] [phone] Stan Fletcher MD [address] [place] [address] Medication Question Social History Tobacco Use Types [...] very loose stool . Contact pt at [phone] (sign language) documented in this encounter Plan of Treatment Upcoming Encounters Date Type Department Care Team ([facility] st Contact Info) Description 07/13/2025 2:30 PM EST Office Visit [facility] MED & PEDS [address] [place] [address] Stan Fletcher MD [address] [place] [address] documented as of this encounter Visit Diagnoses Not on filedocumented in this encounter Additional Health Concerns Assessment Noted Time PHQ-9 Depression Total Score: 0 11/06/19 25 9:29 AM EDT documented as of this encounter Care Teams Cargo Tank Mechanic Relationship Specialty Start Date End Date Stan Fletcher MD [address] [place] [address] PCP - General Internal Medicine 08/20/18 documented as of this encounter
--- OUTSIDE RECORDS SUMMARY | 2025-07-13 07:48 | XMS_ITS | Encounter Summary ---
Author Organization [employer] Address [address] [place] [address] Care Team Providers Care Funeral Director/Embalmer Name Role Phone Stan Fletcher MD Primary Care Provider [phone] Reason for Visit * Reason Comments Med Refill Encounter Details Date Type Department Care Team (Late Contact Info) Description 03/20/2023 Refill [facility] MED & PEDS [address] [place] [address] Stan Fletcher MD [address] [place] [address] Type 2 diabetes mellitus with hyperglycemia, with long-term current use of insulin ([facility]) Social History Tobacco Use Types Packs/Day Years [...] Department Care Team (Late Contact Info) Description 07/13/2025 2:30 PM EST Office Visit [facility] MED & PEDS [address] [place] [address] Stan Fletcher MD [address] [place] [address] documented as of this encounter Visit Diagnoses Diagnosis Type 2 diabetes mellitus with hyperglycemia, with long-term current use of insulin (HCC) documented in this encounter Care Teams Funeral Director/Embalmer Relationship Specialty Start Date End Date Stan Fletcher MD [address] [place] [id number] PCP - General Internal Medicine 08/20/18 documented as of this encounter
--- OUTSIDE RECORDS SUMMARY | 2025-07-13 07:48 | XMS_ITS | Encounter Summary ---
Author Organization [employer] Address [address] [facility] [address] [place] [address] Care Team Providers Care Metal Patternmaker Apprentice Name Role Phone Stan Fletcher MD Primary Care Provider [phone] Encounter Details Date Type Department Care Team ([facility] Contact Info) Description 11/12/2024 Orders Only [facility] [address] [place] [address] ProviderMarcelle MD Social History Tobacco Use Types [...] Description 07/13/2025 2:30 PM EST Office Visit [facility] MED & PEDS [address] [place] [address] Stan Fletcher MD [address] [place] [address] documented as of this encounter Procedures Procedure Name Priority Date/Time Associated Diagnosis Comments DIABETES EYE EXAM Routine 11/11/2024 4:01 PM EDT documented in this encounter Results * Hm Diabetes Eye Exam (11/11/2024 4:01 PM EDT) Historical Provider HEALTH MAINTENANCE Final Result documented in this encounter Visit Diagnoses Not on filedocumented in this encounter Additional Health Concerns Assessment Noted Time PHQ-9 Depression Total Score: 0 11/06/19 25 9:29 AM EDT documented as of this encounter Care Teams Metal Patternmaker Apprentice Relationship Specialty Start Date End Date Stan Fletcher MD [address] [place] [address] PCP - General Internal Medicine 08/20/18 documented as of this encounter
--- OUTSIDE RECORDS SUMMARY | 2025-07-13 07:48 | XMS_ITS | Encounter Summary ---
Author Organization [employer] Address [address] [place] [address] [place], [place] [address] Care Team Providers Care Instrument Tech Name Role Phone Stan Fletcher MD Primary Care Provider [phone]- [phone] Encounter Details Date Type Department Care Team ([facility] Contact Info) Description 06/27/2023 Orders Only [facility] [address] [place] [address] Stan Fletcher MD [address] [place] [address] Acute pain of left shoulder (Primary Dx) [...] Upcoming Encounters Date Type Department Care Team ([facility] Contact Info) Description 07/13/2025 2:30 PM EST Office Visit [facility] [address] [place] [address] Stan Fletcher MD [address] [place] [address] documented as of this encounter Visit Diagnoses Diagnosis Acute pain of left shoulder- Primary documented in this encounter Care Teams Instrument Tech Relationship Specialty Start Date End Date Stan Fletcher MD [address] [place] [address] PCP - General Internal Medicine 08/20/18 documented as of this encounter
--- OUTSIDE RECORDS SUMMARY | 2025-07-13 07:48 | XMS_ITS | Encounter Summary ---
Author Organization [employer] Address [address] [place] [address] [place], [place] [address] Care Team Providers Care Delivery Truck Driver Name Role Phone Stan Fletcher MD Primary Care Provider [phone]- [phone] Encounter Details Date Type Department Care Team ([facility] Contact Info) Description 08/23/2023 Orders Only [facility] [address] [place] [address] Stan Fletcher MD [address] [place] [address] Social History Tobacco Use Types Packs/Day Years [...] [facility] Contact Info) Description 07/13/2025 2:30 PM EST Office Visit [facility] [address] [place] [address] Stan Fletcher MD [address] [place] [address] documented as of this encounter Visit Diagnoses Not on filedocumented in this encounter Care Teams Delivery Truck Driver Relationship Specialty Start Date End Date Stan Fletcher MD [address] [place] [address] PCP - General Internal Medicine 08/20/18 documented as of this encounter
--- OUTSIDE RECORDS SUMMARY | 2025-07-13 07:48 | XMS_ITS | Encounter Summary ---
Author Organization [employer] Address [address] [facility] 7 [place] [address] Care Team Providers Care Training Developer Name Role Phone Stan Fletcher MD Primary Care Provider [phone] Encounter Details Date Type Department Care Team ([facility] Contact Info) Description 06/26/2025 Orders Only [facility]EDS [address] [place], [place] [phone] Stan Fletcher MD 505 [place] [address] Diarrhea, unspecified type (Primary Dx) Social History Tobacco Use Types [...] Upcoming Encounters Date Type Department Care Team ([facility] st Contact Info) Description 07/13/2025 2:30 PM EST Office Visit [facility] [address] [place] [address] Stan Fletcher MD [address] [place] [address] Scheduled Orders Name Type Priority Associated Diagnoses Orde r Schedule Stool - Gastrointestinal panel Microbiology Routine Diarrhea, unspecified type Expected: 06/26/2025 (Approximate), Expires: 06/26/2026 documented as of this encounter Visit Diagnoses Diagnosis Diarrhea, unspecified type- Primary documented in this encounter Additional Health Concerns Assessment Noted Time PHQ-9 Depression Total Score: 0 11/06/19 25 9:29 AM EDT documented as of this encounter Care Teams Training Developer Relationship Specialty Start Date End Date Stan Fletcher MD [address] [place] [address] PCP - General Internal Medicine 08/20/18 documented as of this encounter
--- OUTSIDE RECORDS SUMMARY | 2025-07-13 07:48 | XMS_ITS | Encounter Summary ---
Author Organization [employer] Address [address] [place] [address] 7 [place] [address] Care Team Providers Care Education Department Registrar Name Role Phone Stan Fletcher MD Primary Care Provider [phone] Reason for Visit * Reason Onset Date Comments Durable Medical Equipment 01/26/2023 Encounter Details Date Type Department Care Team ([facility] Contact Info) Description 01/26/2023 Telephone [facility] MED & PEDS [address] [place], [place] [phone] Stan Fletcher MD [address] [place] [address] Durable Medical Equipment Social History Tobacco Use [...] CCA. For clarification, please contact pt at [phone] (Sign language) documented in this encounter Plan of Treatment Upcoming Encounters Date Type Department Care Team (Late st Contact Info) Description 07/13/2025 2:30 PM EST Office Visit [facility] MED & PEDS [address] [place] [address] Stan Fletcher MD [address] [place] [address] documented as of this encounter Visit Diagnoses Diagnosis Type 2 diabetes mellitus without complication, with long-term current use of insulin (HCC)- Primary documented in this encounter Care Teams Education Department Registrar Relationship Specialty Start Date End Date Stan Fletcher MD [address] [place] [address] PCP - General Internal Medicine 08/20/18 documented as of this encounter
--- OUTSIDE RECORDS SUMMARY | 2025-07-13 07:48 | XMS_ITS | Encounter Summary ---
Author Organization [employer] Address [address] [place] [address] [place] [address] Care Team Providers Care Operations Team Leader Name Role Phone Stan Fletcher MD Primary Care Provider [phone]- [phone] Encounter Details Date Type Department Care Team ([facility] Contact Info) Description 07/16/2023 Orders Only [facility] & PED[facility] 505 [place] [address] Stan Fletcher MD [address] [place] [address] Social History Tobacco Use Types Packs/Day Years [...] Type Department Care Team ([facility] Contact Info) Description 07/13/2025 2:30 PM EST Office Visit [facility] P[facility] 505 [place], [place] [phone] Stan Fletcher MD 505 [place] [address] documented as of this encounter Procedures Procedure Name Priority Date/Time Associated Diagnosis Comments MR SHOULDER WO CONTRAST LEFT Routine 08/07/2023 8:15 AM EST documented in this encounter Results * MR Shoulder w/o Contrast Left (08/07/2023 8:15 AM EST) Anatomical Region Laterality Modality Upper Extremities, Shoulder Left Magn etic Resonance 08/07/2023 8:15 AM EST Narrative 08/07/2023 3:29 PM EST [place] [address] Magnetic Resonance Report Signed Patient: Nick Escobar MR#: [id number] : 1960 Acct:[id number] Age/Sex: 62 / M ADM Date: 08/07/23 Loc: HO.MRI Attending Dr: Eddie Lawler MD Ordering Physician: Eddie Lawler MD Date of Service: 08/07/23 Procedure(s): MR shoulder LT wo con Accession Number(s): [id number] cc: Stan Fletcher MD; Eddie Lawler MD EXAMINATION: MR SHOULDER WITHOUT CONTRAST, LEFT CLINICAL INFORMATION: Posterior left shoulder and arm pain since 06/23/2023. Impingement syndrome. COMPARISON: Left shoulder radiographs dated 06/26/2023. TECHNIQUE: MRI of the shoulder was performed using routine sequences on a high-field scanner. FINDINGS: ROTATOR CUFF: Xjqc-jy-rfrpytzd supraspinatus tendinosis with anterior bursal surface fraying [...] MR/MR shoulder LT wo con IMPRESSION: 1. Hoyo-zr-edopxtzo supraspinatus tendinosis with anterior bursal surface fraying [...] in OV> 08/07/23 1526 DD/ 0815 TD/TT: Cultural Historian: Procedure Note Donotuseinterpreter, Image - 08/07/2023 [place] [address] Magnetic Resonance Report Signed Patient: Nick EscobarMR#: [id number] : 1960Acct:[id number] Age/Sex: 62 / MADM Date: 08/07/23 Loc: HO.MRI Attending Dr: Eddie Lawler MD Ordering Physician: Eddie Lawler MD Date of Service: 08/07/23 Procedure(s): MR shoulder LT wo con Accession Number(s): [id number] cc: Stan Fletcher MD; Eddie Lawler MD EXAMINATION: MR SHOULDER WITHOUT CONTRAST, LEFT CLINICAL INFORMATION: Posterior left shoulder and arm pain since 06/23/2023. Impingement syndrome. COMPARISON: Left shoulder radiographs dated 06/26/2023. TECHNIQUE: MRI of the shoulder was performed using routine sequences on a high-field scanner. FINDINGS: ROTATOR CUFF: Fzzd-gj-lysopouw supraspinatus tendinosis with anterior bursal surface fraying [...] MR/MR shoulder LT wo con IMPRESSION: 1. Ictj-ha-hvgspebs supraspinatus tendinosis with anterior bursal surface fraying [...] in OV> 08/07/23 1526 DD/ 0815 TD/TT: Cultural Historian: [facility] External Provider IMG MRI PROCEDURES Final Result documented in this encounter Visit Diagnoses Not on filedocumented in this encounter Care Teams Operations Team Leader Relationship Specialty Start Date End Date Stan Fletcher MD [address] [place] [address] PCP - General Internal Medicine 08/20/18 documented as of this encounter
--- OUTSIDE RECORDS SUMMARY | 2025-07-13 07:49 | XMS_ITS | Encounter Summary ---
Author Organization [employer] [facility] Address [address] [place] [address] [address] [address] Care Team Providers Care Scada Engineer Name Role Phone Stan Fletcher MD Primary Care Provider [phone]- [phone] Encounter Details Date Type Department Care Team ([facility] Contact Info) Description 08/03/[address] [facility] MED & PEDS 505 [place] [address] Stan Fletcher MD [address] [place] [address] Social History Tobacco Use Types Packs/Day Years [...] Team ([facility] Contact Info) Description 07/13/2025 2:30 PM EST Office Visit [facility] PEDS 505 [place] [address] Stan Fletcher MD [address] [place] [address] documented as of this encounter Visit Diagnoses Not on filedocumented in this encounter Care Teams Scada Engineer Relationship Specialty Start Date End Date Stan Fletcher MD [address] [place] [address] PCP - General Internal Medicine 08/20/18 documented as of this encounter
--- OUTSIDE RECORDS SUMMARY | 2025-07-13 07:49 | XMS_ITS | Encounter Summary ---
Author Organization [employer] Address [address] [facility] 7 [place] [address] Care Team Providers Care Radiologic Technology Teacher Name Role Phone Stan Fletcher MD Primary Care Provider [phone] Reason for Visit * Reason Onset Date Comments Medication Question 03/16/2025 Encounter Details Date Type Department Care Team ([facility] Contact Info) Description 03/16/2025 Telephone [facility] & PEDS [address] [place], [place] [phone] Stan Fletcher MD [address] [place] [address] Medication Question Social History Tobacco Use Types [...] Pt stated it issmaller. Contact pt at [phone] (ASL) documented in this encounter Plan of Treatment Upcoming Encounters Date Type Department Care Team (Late st Contact Info) Description 07/13/2025 2:30 PM EST Office Visit [facility] MED & PEDS [address] [place] [address] Stan Fletcher MD [address] [place] [address] documented as of this encounter Visit Diagnoses Not on filedocumented in this encounter Additional Health Concerns Assessment Noted Time PHQ-9 Depression Total Score: 0 11/06/19 25 9:29 AM EDT documented as of this encounter Care Teams Radiologic Technology Teacher Relationship Specialty Start Date End Date Stan Fletcher MD [address] [place] [address] PCP - General Internal Medicine 08/20/18 documented as of this encounter
--- OUTSIDE RECORDS SUMMARY | 2025-07-13 07:49 | XMS_ITS | Encounter Summary ---
Author Organization [employer] Address [address] [place] [address] Care Team Providers Care A Auxiliary Name Role Phone Stan Fletcher MD Primary Care Provider [phone] Reason for Referral * Imaging (Routine) - Authorized Specialty Diagnoses / Procedures Referred By Contac t Referred To Contact Radiology Diagnoses Decreased GFR Procedures US RENAL BI Stan Fletcher MD [address] [place] [address] Phone: tel: fax: [address] [address] Phone: tel: fax: Referral ID Status Reason Start Date Expiration Date V isits Requested Visits Authorized [id number] Authorized 05/07/2025 05/07/2026 1 1 * Imaging (Routine) - Authorized Specialty Diagnoses / Procedures Referred By Contac t Referred To Contact Radiology Diagnoses Transaminitis Procedures US Abdomen Comp w elastography Stan Fletcher MD [address] [place] [address] Phone: tel: fax: [address] [address] Phone: tel: fax: Referral ID Status Reason Start Date Expiration Date V isits Requested Visits Authorized [id number] Authorized 05/06/2025 05/06/2026 1 1 Encounter Details Date Type Department Care Team (Late st Contact Info) Description 05/05/2025 Orders Only [facility] MED & PEDS [address] [place] [address] Stan Fletcher MD [address] [place] [address] Transaminitis (Primary Dx); Decreased GFR Social History [...] Description 07/13/2025 2:30 PM EST Office Visit [facility] MED & PED[facility] [address] [place] [address] Stan Fletcher MD [address] [place] [address] Scheduled Orders Name Type Priority Associated Diagnoses [...] EDT) Iron 161(H) 45 - 160 mcg/dL [facility] Total Iron Binding Capacity 273 228 - 428 mcg/dL [facility] Percent Iron Saturation 59(H) 15 - 50 % [facility] Unsaturated Iron Binding 112 ug/dL [facility] Blood Venous blood specimen / Unknown 05/07/2025 3:25 PM EDT 05/07/2025 5:39 PM EDT us Stan Fletcher MD LAB BLOOD ORDERABLES Final Result Performing Organization Address [facility]/ZIP Co de Phone Number [facility] [address] [place] [phone] * (ABNORMAL) Ferritin (05/07/2025 3:25 PM EDT) Ferritin 619(H) 20 - 250 ng/mL [facility] Blood Venous blood specimen / Unknown 05/07/2025 3:25 PM EDT 05/07/2025 5:39 PM EDT us Stan Fletcher MD LAB BLOOD ORDERABLES Final Result Performing Organization Address [facility] Co de Phone Number [facility] [address] [place] [phone] * (ABNORMAL) Prothrombin Time-INR (05/07/2025 3:25 PM EDT) Prothrombin Time 14.0(H) 10.9 - 12.4 SEC [facility] INTERNATIONAL NORM RATIO 1.2(H) 0.9 - 1.1 [facility] Comment:INTERNATIONAL NORMAL IZED RATIO (INR) REFERENCE [...] Final Result Performing Organization Address [facility] de Phone Number [facility] [address] [place] [address] [phone] * Immunoglobulins, Quantitative, IgA, IgG, IgM (05/07/2025 3:25 PM EDT) IMMUNOGLOBULIN G 982 600 - 1540 mg/dL [facility] IMMUNOGLOBULIN A 142 70 - 320 mg/dL [facility] Immunoglobulin M 86 50 - 300 mg/dL [facility] Comment:THIS TEST WAS PERFOR MED AT:[employer] [address] [phone] MANRIQUEZ MD Blood Venous blood specimen / Unknown 05/07/2025 3:25 PM EDT 05/07/2025 5:39 PM EDT us Stan Fletcher MD LAB BLOOD ORDERABLES Final Result Performing Organization Address [facility] de Phone Number [facility] [address] [place] [phone] documented in this encounter Visit Diagnoses Diagnosis Transaminitis- Primary Nonspecific elevation of levels of transaminase or lactic acid dehydrogenase (LDH) Decreased GFR documented in this encounter Additional Health Concerns Assessment Noted Time PHQ-9 Depression Total Score: 0 11/06/19 25 9:29 AM EDT documented as of this encounter Care Teams A Auxiliary Relationship Specialty Start Date End Date Stan Fletcher MD [address] [place] [address] PCP - General Internal Medicine 08/20/18 documented as of this encounter
--- OUTSIDE RECORDS SUMMARY | 2025-07-13 07:49 | XMS_ITS | Encounter Summary ---
Author Organization [employer] Address [address] [place] [address] 7 [place] [address] Care Team Providers Care Calculus Professor Name Role Phone Stan Fletcher MD Primary Care Provider [phone] Reason for Visit * Reason Onset Date Comments Nurse Triage 08/23/2023 Encounter Details Date Type Department Care Team ([facility] st Contact Info) Description 08/23/2023 Telephone [facility] MED & PEDS [address] [place], [place] [phone] Stan Fletcher MD [address] [place], [place] [phone] Nurse Triage Social History Tobacco Use Types [...] 3:50 PM EST Called pt. Back via radio interference supervisor #[id number]. Called pt. Asked him if he has any Covid tests at home to test himself for Covid. Pt. States he has a test at home but, he currently at Pharmacy picking up some OTC cough medicine. I will call pt. Back at 430pm to see what Covid test result is as pt. States he lives [place] from [facility]. Called pt. Back via radio interference supervisor #[id number]. Pt. Took Covid test and it came out Negative. Pt. ShowedASL loader malt house over video and she states that only the control line is showing and only 1 line on home Covid test. Advised pt. That per Dr. Fletcher he would like pt. To go to Walk in at [facility] tomorrow 08/23/2023 in the am to get his lungs listened to and to assess left lung congestion. Pt. States understanding and will go to walk in at [facility] at 830am when walk in opens. * Telephone Encounter - Vivi Salazar RN - 08/23/2023 2:53 PM EST Called pt. Back via radio interference supervisor. Harbor Pilot #[id number]. Pt. States that he has a productive [...] accepted this outcome Please contact pt @ [phone] Sign Language documented in this encounter Plan of Treatment Upcoming Encounters Date Type Department Care Team ([facility] st Contact Info) Description 07/13/2025 2:30 PM EST Office Visit [facility] MED & PEDS [address] [place] [address] Stan Fletcher MD [address] [place] [address] documented as of this encounter Visit Diagnoses Not on filedocumented in this encounter Care Teams Calculus Professor Relationship Specialty Start Date End Date Stan Fletcher MD [address] [place] [address] PCP - General Internal Medicine 08/20/18 documented as of this encounter
--- OUTSIDE RECORDS SUMMARY | 2025-07-13 07:49 | XMS_ITS | Encounter Summary ---
Author Organization [employer] Address [address] [place] [address] Care Team Providers Care Cookie Padder Name Role Phone Stan Fletcher MD Primary Care Provider [phone] Reason for Referral * Consultation (Routine) - Closed Specialty Diagnoses / Procedures Referred By Contac t Referred To Contact Endocrinology Diagnoses Diabetes mellitus due to underlying condition with hyperglycemia, with long-term current use of insulin (HCC) Stan Fletcher MD [address] [place] [address] Phone: tel: fax: [facility] Endocrinology [address] [place] [address] Phone: tel: fax: Referral ID Status Reason Start Date Expiration Date V isits Requested Visits Authorized [id number] Closed Specialty Services Required 12/18/2024 12/18/2025 1 1 Encounter Details Date Type Department Care Team (Late st Contact Info) Description 12/10/2024 Orders Only [facility] MED & PEDS [address] [place] [address] Stan Fletcher MD [address] [place] [address] Type 2 diabetes mellitus without complication, with [...] Upcoming Encounters Date Type Department Care Team ([facility] st Contact Info) Description 07/13/2025 2:30 PM EST Office Visit [facility] MED & PEDS [address] [place] [address] Stan Fletcher MD [address] [place] [address] Scheduled Referrals Name Type Priority Associated Diagnoses Order Schedule Referral to Endocrinology Outpatient Referral Routine Diabetes mellitus due to underlying condition with hyperglycemia, with long-term current use of insulin ([facility]) Expected: 12/18/2024 (Approximate), Expires: 12/18/2025 documented as of this encounter Procedures Procedure Name Priority Date/Time Associated Diagnosis Comments BASIC METABOLIC PANEL Routine 02/10/2025 10:40 AM EDT Primary hypertension documented in this encounter Results * (ABNORMAL) Basic Metabolic Panel (02/10/2025 10:40 AM EDT) Sodium 140 135 - 145 mmol/L [facility] Potassium 4.9 3.3 - 5.1 mmol/L [facility] Chloride 109(H) 96 - 108 mmol/L [facility] Carbon Dioxide 24 22 - 29 mmol/L [facility] Anion Gap 12 12 - 20 [facility] Urea Nitrogen (BUN) 47(H) 9 - 16 mg/dL [facility] Creatinine, Serum 1.46(H) 0.5 - 1.4 mg/dL [facility] Estimated Glomerular Filt Rate 49 [facility] Comment:Chronic Kidney Disea se: Estimated GFR < 60 mL/min/1.88b8Igprzd Kidney Disease: Estimated GFR < 15 mL/min/1.73m2 Glucose 87 60 - 115 mg/dL [facility] Calcium 9.5 8.4 - 10.2 mg/dL [facility] Blood Venous blood specimen / Unknown 02/10/2025 10:40 AM EDT 02/10/2025 1:58 PM EDT us Stan Fletcher MD LAB BLOOD ORDERABLES Final Result [facility] [address] [place] [address] [phone] documented in this encounter Visit Diagnoses Diagnosis Type 2 diabetes mellitus without complication, with long-term current use of insulin ([facility])- Primary Primary hypertension Unspecified essential hypertension Diabetes mellitus due to underlying condition with hyperglycemia, with long-term current use of insulin ([facility]) documented in this encounter Additional Health Concerns Assessment Noted Time PHQ-9 Depression Total Score: 0 11/06/19 25 9:29 AM EDT documented as of this encounter Care Teams Cookie Padder Relationship Specialty Start Date End Date Stan Fletcher MD [address] [place] [address] PCP - General Internal Medicine 08/20/18 documented as of this encounter
--- OUTSIDE RECORDS SUMMARY | 2025-07-13 07:49 | XMS_ITS | Encounter Summary ---
Author Organization [employer] Address [address] [facility] 7 [place] [address] Care Team Providers Care Studio Data Analyst Name Role Phone Stan Fletcher MD Primary Care Provider [phone] Reason for Visit * Reason Onset Date Comments Nurse Triage 02/13/2025 Encounter Details Date Type Department Care Team ([facility] st Contact Info) Description 02/13/2025 Telephone [facility]IC[facility] [address] [place] [address] Stan Fletcher MD [address] [place], [place] [phone] Nurse Triage Social History Tobacco Use Types [...] 10:22 AM EDT Called pt. Via [phone] digital marketing specialist. Pt states that he was prescribed Aspirin 10mg every am a long time ago in the [place] and he stopped taking it in December [...] acuity questions The caller accepted this outcome. [phone] (Sign Language) documented in this encounter Plan of Treatment Upcoming Encounters Date Type Department Care Team (Late st Contact Info) Description 07/13/2025 2:30 PM EST Office Visit [facility] MED & PEDS [address] [place] [address] Stan Fletcher MD [address] [place] [address] documented as of this encounter Visit Diagnoses Not on filedocumented in this encounter Additional Health Concerns Assessment Noted Time PHQ-9 Depression Total Score: 0 11/06/19 25 9:29 AM EDT documented as of this encounter Care Teams Studio Data Analyst Relationship Specialty Start Date End Date Stan Fletcher MD [address] [place] [address] PCP - General Internal Medicine 08/20/18 documented as of this encounter
--- OUTSIDE RECORDS SUMMARY | 2025-07-13 07:49 | XMS_ITS | Encounter Summary ---
Author Organization [facility] Address [address] [place] [address] [address] [place] [address] Care Team Providers Care Family And Divorce Legal Assistant Name Role Phone Stan Fletcher MD Primary Care Provider [phone] Reason for Visit * Reason Comments Med Refill Encounter Details Date Type Department Care Team ([facility] Contact Info) Description 02/23/2025 Refill [facility] [address] [place], [place] [phone] Stan Fletcher MD [address] [place] [address] Right sided sciatica Social History Tobacco Use [...] Description 07/13/2025 2:30 PM EST Office Visit [facility] [address] [place] [address] Stan Fletcher MD [address] [place] [address] documented as of this encounter Visit Diagnoses Diagnosis Right sided sciatica Sciatica documented in this encounter Additional Health Concerns Assessment Noted Time PHQ-9 Depression Total Score: 0 11/06/19 25 9:29 AM EDT documented as of this encounter Care Teams Family And Divorce Legal Assistant Relationship Specialty Start Date End Date Stan Fletcher MD [address] [place] [address] PCP - General Internal Medicine 08/20/18 documented as of this encounter
--- OUTSIDE RECORDS SUMMARY | 2025-07-13 07:49 | XMS_ITS | Data Portability ---
Author Organization [facility], [facility] Address [address] [place] [phone] Care Team Providers Care Lime Mixer Tender Name Role Phone [facility] Referring Provider Assessment No assessment recorded. Plan of Treatment Reminders Order Date Submit Date Provider Last Modified By Organization Details Last Modified Time Details Appointments None recorded. Lab None recorded. Referral None recorded. Procedures None recorded. Surgeries None recorded. Imaging None recorded. Medication Orders azithromyci n 250 mg tablet 2022 023 [id number], [address] [place], [address], 10:33:17 Flovent HFA 44 mcg/actuati on aerosol inhaler 2022 023 [id number], [address] [place], [address], 10:33:17 Patient TargetsNo targets recorded. Patient InstructionsNo [...] Recorded Respiratory rate Body temperature Oxygen saturation Heart rate Systolic And Diastolic Provider Name and Address Organization Details Last Updated DateTime 3 16 /min 97 [degF] 16 % 77 /min 147/70 mm[Hg] Not Available [facility] - production 3 10:14:26 Social History None recorded. Functional Status None recorded. Mental Status None recorded. Family History Nothing Reported. Medical History No medical history recorded. Past Encounters Encounter ID Performer Location Encounter Start Date Encounter Closed Date Diagnosis/Indication Diagnosis SNOMED-CT Code Diagnosis ICD10 Code Diagnosis IMO Codes Diagnosis Note [id number] Kiana Rojas MD Main - [facility] [address] [place] [phone] 05/23/2023 10:14:23 05/24/2023 00:31:53 Cough 97504361 R05.9 I provided real -time medical direction via phone for this encounter, and was available for additional phone based assistance as needed. I have reviewed and agree with the Assessment and Plan as documented by the Law Enforcement Officer. Patient given the opportunit y to ask [...] Liang Member ID Guarantor Name 12/04/2023 1 [facility] - DOS ON OR AFTER 2022 - DUAL ELIGIBLE - [facility] OPTIONS AND ONE CARE (MEDICARE REPLACEMENT/AD VANTAGE - HMO) Nick Escobar [id number] Nick Escobar Notes Date Note Type Note [...] no further Prednisone until evaluated by [facility] hydro plant technician. ................... ................... ................... ................... ................... ................... ................... ........ [facility] Nursing Assessment: Comments: Reviewed = Deuce VASQUES ................... ................... ................... ................... ................... ................... ................... ........ Law Enforcement Officer Note From Isaiah Green: Pt reports that [...] Disposition: Fulfilled Kiana Rojas MD [address] [facility],[address], [place], [phone], BOBY ELENA 05/23/2023 23:34:00
--- OUTSIDE RECORDS SUMMARY | 2025-07-13 07:49 | XMS_ITS | Clinical Summary ---
Author Organization [employer] Address [address] [place] [address] 7 [place] [address] Care Team Providers Care Assistant Producer Name Role Phone Stan Fletcher MD Primary Care Provider [phone] Allergies Active Allergy Reactions Criticality Noted Date [...] mL 11 023 Active Continuous Blood Gluc Novelty Twister Tender (FreeStyle Cathryn 2 Lindley) deviceIndications:Type 2 diabetes mellitus without complication, with long-term current use of insulin ([facility]) To use daily 1 each 023 Active Continuous Blood Gluc Sensor (FreeStyle Cathryn 2 Sensor) miscIndications:Type 2 diabetes mellitus without complication, with long-term current use of insulin ([facility]) To use daily 2 each 023 Active [...] long-term current use of insulin ([facility]) INJECT 12 UNITS SUBCUTANEOUSLY THREE [...] IN EACH NOSTRIL DAILY 16 g 5 Active Insulin Lispro (HumaLOG) 100 UNIT/ML solutionIndications:Typ e 2 diabetes mellitus without complication, with long-term current use of insulin ([facility]) Inject 12 Units as directed 3 times daily. 10 mL 11 Active Continuous Glucose Novelty Twister Tender (FreeStyle Cathryn 2 Lindley) deviceIndications:Type 2 diabetes mellitus without complication, with long-term current use of insulin ([facility]) Scan sensor every 8 hours 1 each Active Continuous Glucose Sensor (FreeStyle Cathryn 2 Sensor) miscIndications:Type 2 diabetes mellitus without complication, with long-term current use of insulin ([facility]) Apply 1 sensor every 14 days 2 each Active Lantus SoloStar 100 UNIT/ML pen INJECT 60 UNITS SUBCUTANEOUSLY ONCE DAILY 30 mL 11 Active TechLite Pen [place] 32G X 6 MM misc USE FOUR TIMES DAILY] 100 each Active gabapentin (Neurontin) 400 MG capsuleIndications:Pete iation of intervertebral disc between L4 and L5 Take 1 capsule (400 mg) by mouth 3 times daily. 90 capsule 025 2025 Active dextran 70-hypromellose (artificial tears) 0.1-0.3 % [...] BEFORE A MEAL 270 tablet 3 Active SITagliptin (Januvia) 100 MG tabletIndications:Type 2 diabetes mellitus without complication, with long-term current use of insulin ([facility]) Take 1 tablet (100 mg) by mouth Once per day. 90 tablet 3 Active glucose blood (OneTouch Ultra) test stripIndications:Type 2 diabetes mellitus without complication, with long-term current use of insulin (HCC) To use 2 times a day 100 strip 11 Active melatonin 5 MG tabletIndications:Prima ry insomnia Take 1 tablet (5 mg) by mouth Once per day. 30 tablet 2 Active hydrocortisone 0.5 % cream APPLY TOPICALLY TWICE A DAY 15 g Active oxyCODONE-acetaminophen (Percocet) 7.5-325 MG tabletIndications:Acute pain of left shoulder TAKE ONE TABLET EVERY 6 HOURS NEEDED FOR SEVERE PAIN 15 tablet Active DULoxetine (Cymbalta) [address] capsuleIndications:Pete iation of intervertebral disc between L4 and L5 Take 1 capsule (20 mg) by mouth 2 times daily. Do not crush or chew. 60 capsule 11 025 2025 Active losartan (Cozaar) 100 MG tabletIndications:Prima ry hypertension Take 1 tablet (100 mg) by mouth Once per day. 30 tablet 11 025 2025 Active hydroCHLOROthiazide 12.5 MG tabletIndications:Prima ry hypertension Take 1 tablet (12.5 mg) by mouth Once per day. 90 tablet 3 025 2025 Active metoprolol succinate XL (Toprol XL) 25 MG 24 hr tabletIndications:Prima ry hypertension Take 1 tablet (25 mg) by mouth Once per day. Do not crush or chew. 90 tablet 3 025 2025 Active tiZANidine (Zanaflex) 4 MG tabletIndications:Right sided sciatica TAKE ONE TABLET BY MOUTH EVERY 6 TO 8 HOURS NEEDED. DO NOT EXCEED THREE TABLETS PER 24 HOURS. 60 tablet Active gabapentin (Neurontin) 600 MG tabletIndications:Right sided sciatica Take 1 tablet (600 mg) by mouth 3 times daily. 270 tablet 3 025 2025 Active atorvastatin (Lipitor) 40 MG tabletIndications:Pure hypercholesterolemia Take 1 tablet (40 mg) by mouth in the morning. 30 tablet 11 025 Active Active Problems Problem Noted Date [...] Encounters Date Type Department Care Team Description 06/26/2025 Orders Only [facility] [address] [place] [address] Stan Fletcher MD Diarrhea, unspecified type (Primary Dx) 06/26/2025 Telephone [facility] [address] [place] [address] Stan Fletcher MD triage 06/12/2025 10:00 AM EDT Clinical Support [facility] [address] [place] [address] Cheryl Melendez RN Encounter for immunization 06/12/2025 Travel 06/11/2025 Travel 05/29/2025 Refill [facility] [address] [place] [address] Stan Fletcher MD Acute pain of left shoulder 05/28/2025 9:30 AM EDT Office Visit [facility] [address] [facility] [place] [address] Stan Fletcher MD Herniation of intervertebral disc between L4 and L5 (Primary Dx); Anterolisthesis; Herniation of intervertebral disc between L4 and L5; Primary hypertension; Primary hypertension; Primary hypertension; Pure hypercholesterolemia; Right sided sciatica 05/28/2025 Travel 05/27/2025 Refill [facility] [address] [place] [address] Stan Fletcher MD Acute pain of left shoulder 05/27/[address] [address] Stan Fletcher MD triage 05/26/2025 Refill [facility] [address] [place] [address] Stan Fletcher MD Pure hypercholesterolemia; Herniation of intervertebral disc between L4 and L5; Primary hypertension 05/22/2025 Refill [facility] [address] [place] [address] Stan Fletcher MD 05/22/2025 Orders Only GENERIC EXTERNAL DATA DEPARTMENT Provider, Generic External Data 05/15/2025 10:15 AM EDT Clinical Support [facility] [address] [place] [address] Cheryl Melendez RN Encounter for immunization 05/15/2025 Travel 05/14/2025 Telephone [facility] [address] [place] [address] Stan Fletcher MD Results 05/13/2025 Telephone [facility] [address] [place] [address] Veronica Wooten, NanyD 05/12/[address] [address] Stan Fletcher MD 05/12/2025 Travel 05/08/2025 Telephone [facility] [address] [place] [address] Stan Fletcher MD Appointment Request 05/08/2025 Results Follow-Up [facility] [address] [place] [address] Gloria Tyson, CAPRICE Prothrombin Time-INR, Ferritin, Iron And Total Iron Binding Capacity 05/07/2025 2:45 PM EDT Office Visit [facility] [address] [place] [address] Stan Fletcher MD Diarrhea, unspecified type (Primary Dx); Primary hypertension; Type 2 diabetes mellitus without complication, with long-term current use of insulin ([facility]); Transaminitis; Irritant contact dermatitis due to other agents; Primary insomnia 05/07/2025 Results Follow-Up [facility] [address] [place] [address] Cheryl Melendez RN Glucose, Whole Blood, Basic Metabolic Panel, AST, ALT 05/07/2025 Travel 05/07/2025 Telephone [facility] [address] [place] [address] Stan Fletcher MD Nurse Triage 05/06/2025 Telephone [facility] [address] [place] [address] Stan Fletcher MD Call Back Request; fyi 05/05/2025 Orders Only [facility] [address] [place] [address] Stan Mojica MD Transaminitis (Primary Dx); Decreased GFR 05/05/2025 Orders Only GENERIC EXTERNAL DATA DEPARTMENT Provider, Generic External Data 04/29/2025 Telephone [facility] [address] [place] [address] Stan Fletcher MD Medication Question 04/22/2025 2:15 PM EDT Office Visit [facility] [address] [place] [address] Stan Fletcher MD Type 2 diabetes mellitus without complication, with long-term current use of insulin ([facility]) (Primary Dx); Primary hypertension; Right hip pain 04/22/2025 Travel 04/21/2025 Telephone [facility] [address] [place] [address] Stan Fletcher MD Chart Prep 04/21/2025 Telephone [facility] [address] [place] [address] Stan Fletcher MD Nurse Triage from Last 3 Months Immunizations Immunization Administration Dates Next Due HepB-CpG 06/12/2025,05/15/2025 Influenza Injectable Quadriv alant Preservative Free IIV4 [...] Sign Reading Time Taken Comments Blood Pressure 136/73 05/28/2025 9:39 AM EDT Pulse 54 05/28/2025 9:39 AM EDT Temperature 36.8 C (98.2 F) 02/10/2025 10:05 AM EDT Respiratory Rate 20 05/28/2025 9:39 AM EDT Oxygen Saturation 98% 05/28/2025 9:39 AM EDT Inhaled Oxygen Concentration - - Weight 88 kg (194 lb) 05/28/2025 9:39 AM EDT Height 173 cm (5' 8.11 ) 05/28/2025 9:39 AM EDT Body Mass Index 29.4 05/28/2025 9:39 AM EDT Plan of Treatment Upcoming Encounters Date Type Department Care Team (Late st Contact Info) Description 07/13/2025 2:30 PM EST Office Visit [facility] [address] [place] [address] Stan Fletcher MD [address] [place] [address] Health Maintenance Due Date Last Done Comments [...] 11/12/2025 11/12/2024 Diabetes: Foot Exam 02/10/2026 02/10/2025, Disability Screening 05/12/2026 05/12/2025 Tobacco Screening 05/28/2026 05/28/2025 Colorectal Cancer Screening 12/05/2026 FIT DNA/Cologuard 12/05/2026 12/06/2023 Zoster Vaccines Completed 01/24/2022, 11/23/2021 Pneumococcal Vaccine: 50+ Years Completed 07/26/2023, 06/03/2019 RSV Patients and Patients Aged 60 years or older Completed 04/25/2024 Influenza Vaccine Completed 04/05/2025, , 07/19/2023, Additional history exists COVID-19 Vaccine Completed 05/02/2025, 11/2023, 06/10/2022, Additional history exists Hepatitis C Screening Completed 05/07/2025, 025 Hepatitis B Vaccines Completed 06/12/2025, 05/15/20 25 HIB Vaccines Aged Out No longer eligi [...] Procedure Name Priority Date/Time Associated Diagnosis Comments GLUCOSE, WHOLE BLOOD Routine 05/22/2025 8:51 AM EDT HEPATITIS PANEL, GENERAL Routine 05/07/2025 3:25 PM [...] complication, with long-term current use of insulin ([facility]) POCT GLUCOSE Routine 04/22/2025 4:07 PM EDT Type 2 diabetes mellitus without complication, with long-term current use of insulin (CMS/HCC) LIPID PANEL, STANDARD Routine 11/12/2024 11:34 AM [...] Recently Relevant to Health Maintenance Results * Glucose, Whole Blood (05/22/2025 8:51 AM EDT) Only the most recent of2 resultswithin the time period is included. Pathologist [facility] Glucose, Whole Blood 112 60 - 115 mg/dL [facility] Comment:METER #: [id number] Testing performed in the Endocrinology Department [address] , [address], [facility]. 05/22/2025 8:51 AM EDT 05/22/2025 8:56 AM EDT us Generic External Data Provider LAB BLOOD ORDERAB LES Final Result [facility] [address] [place] [phone] * Hepatitis Panel, General (05/07/2025 3:25 PM EDT) [facility] Hepatitis A IgM Nonreactive Nonreactive [facility] Comment:IgM antibodies to AVERY V not detected; does not exclude earlyacute or recovered HAV infection. ~Hepatitis B Surface Antibody NONREACTIVE Nonreactive [facility] Comment:Nonreactive: < 8.00 mIU/mL Hepatitis B Core Antibody Nonreactive Nonreactive [facility] Hepatitis C Antibody Nonreactive Nonreactive [facility] Comment:Antibodies to HCV no t detected; does not exclude early acuteHCV infection. Hepatitis B Surface Ag Negative Negative [facility] Blood Venous blood specimen / Unknown 05/07/2025 3:25 PM EDT 05/07/2025 5:39 PM EDT us Stan Fletcher MD LAB BLOOD ORDERABLES Final Result Performing Organization Address [facility] [[email or web address]] Co de Phone Number [facility] [address] [place] [phone] * (ABNORMAL) Iron And Total Iron Binding Capacity (05/07/2025 3:25 PM EDT) Iron 161(H) 45 - 160 mcg/dL [facility] Total Iron Binding Capacity 273 228 - 428 mcg/dL [facility] Percent Iron Saturation 59(H) 15 - 50 % [facility] Unsaturated Iron Binding 112 ug/dL [facility] Blood Venous blood specimen / Unknown 05/07/2025 3:25 PM EDT 05/07/2025 5:39 PM EDT us Stan Fletcher MD LAB BLOOD ORDERABLES Final Result Performing Organization Address [facility] de Phone Number [facility] [address] [place] [phone] * (ABNORMAL) Prothrombin Time-INR (05/07/2025 3:25 PM EDT) Prothrombin Time 14.0(H) 10.9 - 12.4 SEC [facility] INTERNATIONAL NORM RATIO 1.2(H) 0.9 - 1.1 [facility] Comment:INTERNATIONAL NORMAL IZED RATIO [...] BLOOD ORDERABLES Final Result Performing Organization Address [facility] [[email or web address]] Co de Phone Number [facility] [address] [place] [phone] * Immunoglobulins, Quantitative, IgA, IgG, IgM (05/07/2025 3:25 PM EDT) IMMUNOGLOBULIN G 982 600 - 1540 mg/dL [facility] IMMUNOGLOBULIN A 142 70 - 320 mg/dL [facility] Immunoglobulin M 86 50 - 300 mg/dL [facility] Comment:THIS TEST WAS PERFOR MED AT:[employer] [address] [phone] MANRIQUEZ MD Blood Venous blood specimen / Unknown 05/07/2025 3:25 PM EDT 05/07/2025 5:39 PM EDT us Stan Fletcher MD LAB BLOOD ORDERABLES Final Result Performing Organization Address [facility] de Phone Number [facility] [address] [place] [phone] * (ABNORMAL) Ferritin (05/07/2025 3:25 PM EDT) Ferritin 619(H) 20 - 250 ng/mL [facility] Blood Venous blood specimen / Unknown 05/07/2025 3:25 PM EDT 05/07/2025 5:39 PM EDT us Stan Fletcher MD LAB BLOOD ORDERABLES Final Result Performing Organization Address [facility] [[email or web address]] Co de Phone Number [facility] [address] [place] [address] [phone] * (ABNORMAL) ALT (05/05/2025 11:40 AM EDT) Alanine Aminotransferase 72(H) 0 - 40 U/L [facility] 05/05/2025 11:4 0 AM EDT 05/05/2025 11:40 AM EDT Generic External Data Provider LAB BLOOD ORDERAB LES Final Result Performing Organization Address City/[facility]/ZIP Co de Phone Number [facility] [address] [place] [phone] * (ABNORMAL) AST (05/05/2025 11:40 AM EDT) Pathologist [facility] Aspartate Amino Transferase 49(H) 5 - 37 U/L [facility] 05/05/2025 11:4 0 AM EDT 05/05/2025 11:40 AM EDT Generic External Data Provider LAB BLOOD ORDERAB LES Final Result Performing Organization Address City/[facility] [[email or web address]] Co de Phone Number [facility] [address] [place] [address] [phone] * (ABNORMAL) Basic Metabolic Panel (05/05/2025 11:40 AM EDT) Sodium 142 135 - 145 mmol/L [facility] Potassium 4.4 3.3 - 5.1 mmol/L [facility] Chloride 108 96 - 108 mmol/L [facility] Carbon Dioxide 27 22 - 29 mmol/L [facility] Anion Gap 11(L) 12 - 20 [facility] Urea Nitrogen (BUN) 32(H) 9 - 16 mg/dL [facility] Creatinine, Serum 1.41(H) 0.5 - 1.4 mg/dL [facility] Estimated Glomerular Filt Rate 51 [facility] Comment:Chronic Kidney Disea se: Estimated GFR < 60 mL/min/[id number] Kidney Disease: Estimated GFR < 15 mL/min/1.73m2 Glucose 100 60 - 115 mg/dL [facility] Calcium 9.4 8.4 - 10.2 mg/dL [facility] 05/05/2025 11:4 0 AM EDT 05/05/2025 11:40 AM EDT us Generic External Data Provider LAB BLOOD ORDERAB LES Final Result [facility] [address] [place] [phone] * (ABNORMAL) POCT HGB A1C (04/22/2025 [...] Media Lot # [id number] Lot# Expiration Date 278 Comment:random Blood Capillary blood specimen / Unknown 04/22/2025 4:07 PM EDT us Stan Fletcher MD POINT OF CARE TEST ENTER/ED IT ORDERABLES Final Result * (ABNORMAL) Lipid Panel, Standard (11/12/2024 11:34 AM EDT) Triglycerides 176(H) <150 mg/dL [facility] Comment:Desirable Triglyceri de: less than 150 mg/dLBorderline High Triglyceride 150-199 mg/dLHigh Triglyceride: 200-499 mg/dLVery High Triglyceride: greater than or equal to 5OO mg/dL Cholesterol 116 <200 mg/dL [facility] Comment:Desirable Cholestero l: less than 200 mg/dLBorderline High Cholesterol: 200-239 mg/dLHigh Cholesterol: greater than 239 mg/dL LDL Cholesterol Calculated 49 <100 mg/dL [facility] Comment:Desirable LDL: less than 100 mg/dLNear Optimal/Above Optimal LDL: 110- 129 mg/dLBorderline High LDL: 130-159 mg/dLHigh LDL: 160-189 mg/dLVery High LDL: greater than or equal to 190 mg/dL HDL Cholesterol 32(L) >40 mg/dL [facility] Comment:Desirable HDL: great er than 40 mg/dL Note: This HDL assay may give artificially low results in patients with liver disease. Blood Venous blood specimen / Unknown 11/12/2024 11:34 AM EDT 11/12/2024 2:15 PM EDT Stan Fletcher MD LAB BLOOD ORDERABLES Final Result [facility] [address] [place] [phone] * Diabetes Eye Exam (11/11/2024 4:01 PM EDT) Historical Provider HEALTH MAINTENANCE Final Result * Albumin, Random Urine W/Creatinine (11/05/2024 10:17 AM EDT) Creatinine, Urine 98.24 mg/dL [facility] Microalbumin Urine 20.0 mg/L [facility] Microalbum Creatinine Ratio Ur 20.3 <30 ug/mg cr [facility] Comment:Albumin/Creatinine R atio Reference Ranges: Normal: < 30 ug/mg creatinine Microalbuminuria: 30 - 300 ug/mg creatinineClinical Albuminuria: > 300 ug/mg creatinine Urine (Urine, Random) 11/05/2024 10:17 AM EDT 11/05/2024 2:07 PM EDT us Stan Fletcher MD LAB URINE ORDERABLES Final Result [facility] [address] [place], [place] [phone] * (ABNORMAL) Cologuard?? colon cancer screening (12/06/2023 7:58 AM EDT) Cologuard Result Positive( A) Negative 12/13/2023 5:48 PM EDT [facility] (CLIA #:[id number]) Comment: POSITIVE TEST RESULT. A positive Cologuard [...] (Saritha Otto al, N Engl J Med 2014;370(14):3438-8806.) Cologuard may produce a false negative or false positive result (no colorectal cancer or precancerous polyp present at colonoscopy follow up). A negative Cologuard test result does not guarantee the absence of CRC or advanced adenoma (pre-cancer). The current Cologuard screening interval is every 3 years. ([place] [employer] Society and U.S. Multi-Society Task Force). Cologuard performance data in a 10,000 patient pivotal study using colonoscopy as the reference method can be accessed at the following location: [email or web address]/results. Additional description of the Cologuard test process, warnings and precautions can be found at www.cologuard.com. Stool specimen (specimen) Rectal contents / Unknown 12/06/2023 7:58 AM EDT 12/07/2023 10:55 AM EDT us Stan Fletcher MD LAB MOLECULAR DIAGNOSTICS O PHILLIP Final Result [facility] (CLIA #:[id number]) [address] [place] [address], from Last 3 Months or Most Recently Relevant to Health Maintenance Insurance [facility] DUAL COMPLETE HMO [facility] MEDICARE ADVANTAGE HMO [place] [id number] [place] [id number] [facility] [address] [place] [address] [place] [address] [place] [address] Care Teams Assistant Producer Relationship Specialty Start Date End Date Stan Fletcher MD [address] [place] [phone] PCP - General Internal Medicine 08/20/18
--- OUTSIDE RECORDS SUMMARY | 2025-07-13 07:49 | XMS_ITS | Encounter Summary ---
Author Organization [employer] Address [address] [place] [address] [address] [place] [address] Care Team Providers Care Prover Name Role Phone Stan Fletcher MD Primary Care Provider [phone]- [phone] Encounter Details Date Type Department Care Team ([facility] Contact Info) Description 12/07/2022 Orders Only [facility] [address] [place], [place] [phone] Stan Fletcher MD [address] [place], [place] [phone] Palpitations (Primary Dx) Social History Tobacco Use [...] Care Team ([facility] Contact Info) Description 07/13/2025 2:30 PM EST Office Visit [facility] [address] [place], [place] [phone] Stan Fletcher MD [address] [place], [place] [phone] documented as of this encounter Visit Diagnoses Diagnosis Palpitations- Primary documented in this encounter Care Teams Prover Relationship Specialty Start Date End Date Stan Fletcher MD [address] [place] [phone] PCP - General Internal Medicine 08/20/18 documented as of this encounter
--- OUTSIDE RECORDS SUMMARY | 2025-07-13 07:49 | XMS_ITS | Encounter Summary ---
Author Organization [employer] Address [address] [place] [phone] Care Team Providers Care Journeyman Pressman Name Role Phone Stan Fletcher MD Primary Care Provider [phone] Reason for Visit * Reason Comments Med Refill Encounter Details Date Type Department Care Team ([facility] Contact Info) Description 01/09/2023 Refill [facility] [address] [place] [address] Stan Fletcher MD [address] [place] [address] Social History Tobacco Use Types Packs/Day Years [...] Encounters Date Type Department Care Team ([facility] Contact Info) Description 07/13/2025 2:30 PM EST Office Visit [facility] [address] [place], [place] [phone] Stan Fletcher MD [address] [place], [place] [phone] documented as of this encounter Visit Diagnoses Not on filedocumented in this encounter Care Teams Journeyman Pressman Relationship Specialty Start Date End Date Stan Fletcher MD [address] [place] [address] PCP - General Internal Medicine 08/20/18 documented as of this encounter
--- OUTSIDE RECORDS SUMMARY | 2025-07-13 07:49 | XMS_ITS | Encounter Summary ---
Author Organization [employer] [facility] Address [address] [place] [phone] Care Team Providers Care Tractor Trailer Driver Name Role Phone Stan Fletcher MD Primary Care Provider [phone]- [phone] Reason for Visit * Reason Comments Med Refill Encounter Details Date Type Department Care Team ([facility] Contact Info) Description 08/29/2022 Refill [facility] [address] [place] [address] Stan Fletcher MD [address] [place] [address] Chronic pain syndrome Social History Tobacco Use [...] Upcoming Encounters Date Type Department Care Team ([facility] Contact Info) Description 07/13/2025 2:30 PM EST Office Visit [facility] [address] [place] [address] Stan Fletcher MD [address] [place] [address] documented as of this encounter Visit Diagnoses Diagnosis Chronic pain syndrome documented in this encounter Care Teams Tractor Trailer Driver Relationship Specialty Start Date End Date Stan Fletcher MD [address] [place] [phone] PCP - General Internal Medicine 08/20/18 documented as of this encounter
--- OUTSIDE RECORDS SUMMARY | 2025-07-13 07:49 | XMS_ITS | Encounter Summary ---
Author Organization [employer] Address [address] [place] [address] Care Team Providers Care Linux Support Engineer Name Role Phone Stan Fletcher MD Primary Care Provider [phone] Reason for Referral * Consultation (Routine) - Closed Specialty Diagnoses / Procedures Referred By Contac t Referred To Contact Gastroenterology Diagnoses Positive colorectal cancer screening using Cologuard test Stan Fletcher MD [address] [place] [address] Phone: tel: fax: Neli Jaeger MD [address] [place] [address] Phone: tel: fax: Referral ID Status Reason Start Date Expiration Date V isits Requested Visits Authorized [id number] Closed Specialty Services Required 12/14/2023 12/13/2024 1 1 Encounter Details Date Type Department Care Team ([facility] Contact Info) Description 12/14/2023 Orders Only [facility] MED & PEDS [address] [place], [place] [phone] Stan Fletcher MD [address] [place], [place] [phone] Positive colorectal cancer screening using Cologuard test [...] 07/13/2025 2:30 PM EST Office Visit [facility] MED & PEDS [address] [place] [address] Stan Fletcher MD [address] [place] [address] Scheduled Referrals Name Type Priority Associated Diagnoses [...] documented as of this encounter Care Teams Linux Support Engineer Relationship Specialty Start Date End Date Stan Fletcher MD [address] [place] [id number] PCP - General Internal Medicine 08/20/18 documented as of this encounter
--- OUTSIDE RECORDS SUMMARY | 2025-07-13 07:49 | XMS_ITS | Encounter Summary ---
Author Organization [employer] Address [address] [place] [address] [address] [place] [address] Care Team Providers Care Customs Compliance Specialist Name Role Phone Stan Fletcher MD Primary Care Provider [phone] Reason for Visit * Reason Comments Med Refill Encounter Details Date Type Department Care Team ([facility] Contact Info) Description 05/29/2025 Refill [facility] CH[facility] MED & PEDS [address] [place], [place] [phone] Stan Fletcher MD [address] [place] [address] Acute pain of left shoulder Social History [...] Description 07/13/2025 2:30 PM EST Office Visit [facility] MED & PEDS [address] [place] [address] Stan Fletcher MD [address] [place] [address] documented as of this encounter Visit Diagnoses Diagnosis Acute pain of left shoulder documented in this encounter Additional Health Concerns Assessment Noted Time PHQ-9 Depression Total Score: 0 11/06/19 25 9:29 AM EDT documented as of this encounter Care Teams Customs Compliance Specialist Relationship Specialty Start Date End Date Stan Fletcher MD [address] [place] [address] PCP - General Internal Medicine 08/20/18 documented as of this encounter
--- OUTSIDE RECORDS SUMMARY | 2025-07-13 07:49 | XMS_ITS | Encounter Summary ---
Author Organization [employer] Address [address] [place] [address] Care Team Providers Care Ornament Stitcher Name Role Phone Stan Fletcher MD Primary Care Provider [phone] Reason for Referral * Consultation (Routine) - Canceled Specialty Diagnoses / Procedures Referred By Contac t Referred To Contact Endocrinology Diagnoses Type 2 diabetes mellitus without complication, with long-term current use of insulin ([facility]) Stan Fletcher MD [address] [place] [address] Phone: tel: fax: Referral ID Status Reason Start Date Expiration Date Visits Requested Visits Authorized [id number] Canceled Specialty Services Required 02/13/2025 02/13/2026 1 1 Encounter Details Date Type Department Care Team ([facility] Contact Info) Description 02/13/2025 Orders Only [facility] CH[facility] MED & PEDS [address] [place] [address] Stan Fletcher MD [address] [place] [address] Type 2 diabetes mellitus without complication, with [...] Upcoming Encounters Date Type Department Care Team ([facility] st Contact Info) Description 07/13/2025 2:30 PM EST Office Visit [facility] MED & PEDS [address] [place] [address] Stan Fletcher MD [address] [place] [address] Scheduled Referrals Name Type Priority Associated Diagnoses [...] documented as of this encounter Care Teams Ornament Stitcher Relationship Specialty Start Date End Date Stan Fletcher MD [address] [place] [phone] PCP - General Internal Medicine 08/20/18 documented as of this encounter
== END 2025-07-13 07:46 | disposition home or self-care (01) ==
LOC: HO.US 07:45
PROVIDERS: PCP Internal Medicine; Visit Provider Internal Medicine
DX: R94.4 Abnormal results of kidney function studies (principal); R74.01 Elevation of levels of liver transaminase levels
CPT/HCPCS: 76700; 76981

== ENCOUNTER → 2025-07-13 07:54 | Outpatient (BNV) | payer MEDICARE, MEDICAID, SELFPAY | PROVIDERS: PCP Internal Medicine; Visit Provider Radiology Diagnostic Radiology | DX: R74.01 Elevation of levels of liver transaminase levels (principal) | CPT/HCPCS: 76700 ==

== ENCOUNTER → 2025-07-30 11:22 | Outpatient (BNV) | payer MEDICARE, MEDICAID, SELFPAY | PROVIDERS: PCP Internal Medicine; Visit Provider Radiology Diagnostic Radiology | DX: M51.27 Other intervertebral disc displacement, lumbosacral region (principal); M47.816 Spondylosis without myelopathy or radiculopathy, lumbar region | CPT/HCPCS: 72158 ==

== ENCOUNTER 2025-07-30 11:31 | Outpatient (REF) | payer MEDICARE, MEDICAID, SELFPAY ==
--- NOTE | ~2025-07-30 | MR_ITS ---
EXAMINATION: MR LUMBAR SPINE WITHOUT AND WITH CONTRAST CLINICAL INFORMATION: M 51.26. Other intervertebral disc displacement, lumbar region. Stage III chronic kidney disease. COMPARISON: May 31, 2024.. Correlated to x-ray dated May 12, 2025. TECHNIQUE: MRI of the lumbar spine was obtained using routine sequences with and without contrast. Intravenous contrast: Gadolinium based (Gadavist) 9.0 mL . No reported immediate complications. FINDINGS: Last rib-bearing vertebra labeled T12. Paramagnetic field distortion secondary to metallic hardware posterior elements L3-4 and intervertebral disc spacer placement at L3-4 and L4-5 levels. Mild bone marrow STIR signal and soft tissue muscular plane involving the posterior elements at L3-4, L4-5 and L5-S1 levels. No peripheral enhancing fluid collections within the central spinal canal nor the prevertebral compartment. No abnormal enhancement within the osseous structures of the vertebral compartment. Multilevel disc desiccation and marginal osteophyte formation from T11-12 to L2-3. Disc desiccation and endplate irregularity at L5-S1. Conus medullaris ends at pedicle of L1 with normal signal. T12-L1: Broad-based disc bulging. Facet joint hypertrophy. No central spinal canal or neuroforamina stenosis. L1-2: Broad-based disc bulging. Facet joint ligamentum flavum hypertrophy. Reduced AP diameter thecal sac and neuroforamina. No compression upon neural elements. L2-3: Broad-based disc bulging. Facet joint hypertrophy as well as ligamentum flavum. Reduced AP diameter of the thecal sac and neuroforamina. No compression upon neural elements. L3-4: Bilateral facet joint hypertrophy. Status post laminectomies. Bilateral neuroforamina narrowing likely encroaching the neural elements. L4-5: Bilateral facet joint hypertrophy as well as ligamentum flavum. Reduced AP diameter of the thecal sac and bilateral neuroforamina stenosis likely encroaching the neural elements. L5-S1: Left subarticular and foraminal broad-based disc herniation resulting in ventral deformity of the thecal sac and left neuroforamina stenosis abutting the left S1 and likely compressing the left L5 nerve roots. Right neuroforamina stenosis on a degenerative basis compressing the right L5 exiting nerve root. . MR/MR lumbar spine wo/w con IMPRESSION: No epidural/subdural abscess or hematoma. No prevertebral compartment abscess. No osteomyelitis. Left subarticular and foraminal disc herniation at L5-S1 resulting in central spinal canal stenosis and bilateral neuroforamina stenosis compressing the L5 nerve roots and encroaching the left S1 nerve root. Multilevel spondylosis pronounced at L3-4 and L4-5 levels. Electronically signed by: Dion Cortez MD 07/30/2025 12:44 PM [facility]
== END 2025-07-30 11:32 | disposition home or self-care (01) ==
LOC: HO.MRI 11:31
PROVIDERS: PCP Internal Medicine; Visit Provider Physician Assistant
DX: M51.26 Other intervertebral disc displacement, lumbar region (principal)
CPT/HCPCS: 72158; A9585